=== PATIENT | female | born 1995 | race Caucasian/White ===

== ENCOUNTER → 2017-09-25 21:04 | Outpatient (CLI) | payer BC, MEDICAID, SELFPAY ==
[2017-09-29 13:00] LABS: HPV APTIMA, High Risk Negative (Negative)
== END ==
PROVIDERS: Visit Provider Obstetrics & Gynecology
DX: Z12.4 Encounter for screening for malignant neoplasm of cervix (principal)
CPT/HCPCS: 88175; G0145

== ENCOUNTER → 2018-10-08 | Outpatient (CLI) | payer BC, MEDICAID, SELFPAY ==
[2018-10-12 11:27] LABS: HPV APTIMA, High Risk Negative (Negative)
== END | disposition home or self-care (01) ==
PROVIDERS: Referring Provider Obstetrics & Gynecology; Visit Provider Obstetrics & Gynecology
DX: Z12.4 Encounter for screening for malignant neoplasm of cervix (principal)
CPT/HCPCS: 88175; G0145

== ENCOUNTER → 2018-12-05 | Outpatient (CLI) | payer BC, MEDICAID, SELFPAY ==
[2015-07-23 15:11] VITALS: BMI 29.1
[2018-12-05 17:17] LABS: Chlamydia Trachomatis by PCR POSITIVE (Negative); Neisserai gonorrhoeae by PCR Negative (Negative); Probe Check PASS; Sample Adequacy Control PASS; Specimen Processing Control PASS
== END | disposition home or self-care (01) ==
LOC: LABSPEC 15:19
PROVIDERS: Visit Provider Obstetrics & Gynecology
DX: Z11.3 Encounter for screening for infections with a predominantly sexual mode of transmission (principal)
CPT/HCPCS: 87491; 87591

== ENCOUNTER → 2018-12-31 | Outpatient (CLI) | payer BC, MEDICAID, SELFPAY ==
[2018-12-31 17:23] LABS: Absolute Lymphocyte Count 1.57 X10^3/ul (0.83-4.51); Absolute Neutrophil Count 5.2 X10^3/uL (2.0-7.7); Basophil# 0.01 X10^3/uL; Basophil% 0.1 % (0-1); Eosinophil# 0.04 X10^3/uL; Eosinophils% 0.5 % (0-5); Hematocrit 41.8 % (37-47); Hemoglobin 14.3 g/dl (12.0-15.0); Lymphocyte # 1.57 X10^3/ul (4.0); Lymphocyte % 21.3 % (19-41); Mean Corp Hgb Conc 34.2 g/gl (32-36); Mean Corpuscular Hgb 29.1 pg (27.0-32.0); Mean Platelet Vol. 11.7 fl (6.2-12.0); Monocyte% 6.8 % (0-10); Neutrophil # 5.23 X10^3/uL (2.7-7.7); Neutrophil % 71.2 % (47-70); Platelet Count 181 K/mm3 (150-450); RBC Distribution Width SD 40.1 fl (35.1-43.9); Red Blood Count 4.92 M/mm3 (4.2-5.4); White Blood Count 7.4 K/mm3 (4.4-11.0)
[2018-12-31 17:25] LABS: Color, Urine Yellow (Yellow); Glucose, Dipstick Normal (Normal); Ketone-Dipstick 50 mg/dl (Negative); Leukocyte Esterase-Dipstick 100 /ul (Negative); Nitrite-Dipstick Negative (Negative); Occult Blood-Urine 10 /ul (Negative); Protein-Dipstick 15 mg/dl (Negative); Specific Gravity, Urine 1.025 (1.002-1.030); Urine Bilirubin Dipstick Negative (Negative); Urine Clarity Sl. Cloudy (Clear); Urine Urobilinogen 1 mg/dl (Normal)
[2018-12-31 17:32] LABS: POSITIVE COUNT NO; POSITIVE DIFFERENTIAL NO; POSITIVE MORPHOLOGY NO
[2018-12-31 17:42] LABS: Amphetamine Urine VISTA NEGATIVE (<1000 ng/mL); Barbiturate Urine VISTA NEGATIVE (< 200 ng/mL); Benzodiazepine Urine VISTA NEGATIVE (< 200 ng/mL); Cocaine Urine VISTA NEGATIVE (< 300 ng/mL); Ecstacy Urine VISTA NEGATIVE (< 500 ng/mL); Methadone Urine VISTA NEGATIVE (< 300 ng/mL); PCP Urine VISTA NEGATIVE (< 25 ng/mL); THC Urine VISTA NEGATIVE (< 50 ng/mL); Vista UDS pH Range 6
[2018-12-31 17:43] LABS: Thyroid Stim Hormone (TSH) 0.13 uIU/mL (0.358-3.74)
[2018-12-31 17:58] LABS: COTININE Drug Screen Negative (<200 ng/mL)
[2019-01-01 10:15] LABS: HIV - WCH Non-Reactive (Nonreactive); Hepatitis B Surface Antigen Non-Reactive (Nonreactive); Hepatitis C Antibody Non-Reactive (Nonreactive); Rubella IgG 46.1 IU/mL; Vitamin D,25 Hydroxy 17.4 ng/mL (29.95-100.01)
[2019-01-01 14:11] LABS: Free T3 3.7 pg/mL (2.18-3.98); T4 Free Direct 1.34 ng/dL (0.76-1.46)
[2019-01-04 05:48] LABS: Prenatal RPR NONREACTIVE (NONREACTIVE)
== END | disposition home or self-care (01) ==
LOC: WOBLAB 14:16
PROVIDERS: Visit Provider Obstetrics & Gynecology
DX: Z34.81 Encounter for supervision of other normal pregnancy, first trimester (principal); R79.89 Other specified abnormal findings of blood chemistry
CPT/HCPCS: 36415; 80307; 81002; 82306; 84439; 84443; 84481; 85025; 86703; 86762; 86803; 87340

== ENCOUNTER → 2019-01-28 | Outpatient (CLI) | payer BC, MEDICAID, SELFPAY ==
[2015-07-23 15:11] VITALS: BMI 29.1
[2019-01-28 18:15] LABS: Chlamydia Trachomatis by PCR Negative (Negative); Neisserai gonorrhoeae by PCR Negative (Negative); Probe Check PASS; Sample Adequacy Control PASS; Specimen Processing Control PASS
== END | disposition home or self-care (01) ==
LOC: LABSPEC 14:12
PROVIDERS: Visit Provider Obstetrics & Gynecology
DX: Z34.82 Encounter for supervision of other normal pregnancy, second trimester (principal)
CPT/HCPCS: 87491; 87591

== ENCOUNTER → 2019-05-02 09:43 | Outpatient (CLI) | payer BC, MEDICAID, SELFPAY ==
[2019-05-02 12:39] LABS: Hematocrit 31.4 % (37-47); Hemoglobin 10.5 g/dL (12.0-15.0); Mean Corp Hgb Conc 33.4 g/dL (32-36); Mean Corpuscular Volume 89.7 fL (81-99); Mean Platelet Vol. 11.4 fl (6.2-12.0); Platelet Count 191 K/mm3 (150-450); RBC Distribution Width CV 12.7 % (11.6-14.6); RBC Distribution Width SD 41.5 fl (35.1-43.9); White Blood Count 9.6 K/mm3 (4.4-11.0)
[2019-05-02 12:44] LABS: Glucose Challenge Gest 1H 50g 104 mg/dL (70-140)
== END ==
PROVIDERS: Referring Provider Obstetrics & Gynecology; Visit Provider Obstetrics & Gynecology
DX: Z34.83 Encounter for supervision of other normal pregnancy, third trimester (principal)
CPT/HCPCS: 36415; 82950; 85027

== ENCOUNTER 2019-06-23 17:40 | Outpatient (CLI) | payer BC, MEDICAID, SELFPAY ==
[2019-06-23 18:26] VITALS: BMI 28.5
[2019-06-23] MEDS: 0.9% Normal Saline 1,000 ML 999 ML IV (18:45)
[2019-06-23 18:47] LABS: Color, Urine Yellow (Yellow); Glucose, Dipstick Normal (Normal); Leukocyte Esterase-Dipstick 25 /ul (Negative); Nitrite-Dipstick Negative (Negative); Occult Blood-Urine 10 /ul (Negative); Protein-Dipstick 30 mg/dl (Negative); Specific Gravity, Urine 1.025 (1.002-1.030); Urine Clarity Sl. Cloudy (Clear); Urine Urobilinogen 4 mg/dl (Normal)
[2019-06-23 18:52] LABS: Urine Bilirubin Dipstick 1 mg/dL (Negative)
[2019-06-23 18:54] LABS: Ketone-Dipstick 150 mg/dl (Negative)
[2019-06-23 19:05] LABS: Red Blood Cells-Urine 0 SEEN /hpf (0-5); White Blood Cells 0 SEEN /hpf (0-5)
[2019-06-23 19:07] LABS: Color, Urine Yellow (Yellow); Glucose, Dipstick NEGATIVE (Normal); Urine Clarity Sl Cldy (Clear)
[2019-06-23 19:08] LABS: Leukocyte Esterase-Dipstick 25 /ul (Negative); Nitrite-Dipstick Negative (Negative); Occult Blood-Urine 10 /ul (Negative); Protein-Dipstick 30 mg/dl (Negative); Specific Gravity, Urine 1.025 (1.002-1.030); Urine Bilirubin Dipstick 1 mg/dL (Negative); Urine Urobilinogen 4 mg/dl (Normal)
[2019-06-23 19:09] LABS: Ketone-Dipstick 150 mg/dl (Negative)
[2019-06-23 19:10] LABS: Squamous Epithelial Cells - UA 5-10 SEEN /hpf (5-10)
[2019-06-23 19:11] LABS: Bacteria RARE /hpf (None Seen); Mucous, Urine 3+ /hpf (<or=2+)
[2019-06-23] MEDS: 0.9% Normal Saline 1,000 ML 20 ML IV (19:52)
--- NOTE | 2019-06-23 20:16 | OB.TRI.HP_ITS ---
- Problem List (1) 35 weeks gestation of Status: Acute History of Present Illness Date of Service: 06/23/19 Was patient seen by the physician?: Yes Reason For Visit: R/O labor Final ANNA: 07/27/19 Final ANNA Source: US <20 weeks Gestational age: 35 Weeks and 1 Days History of Present Illness: 24yo @ 35 wga with c/o painful contractions since 1300h. Denies leaking of fluid, vaginal bleeding. Fetus is active. Contractions q1-3 minutes. Denies recent falls, trauma or car accidents. Allergies nitrofurantoin [From Macrobid] Allergy (Unknown, Verified 06/23/19 18:45) Hives nickel Allergy (Verified 07/18/15 14:35) Rash Sulfa (Sulfonamide Antibiotics) Allergy (Verified 07/01/15 19:29) Hives Laboratory Studies: Laboratory Tests 06/23/19 06/23/19 Range/Units 18:00 18:00 Urine Color Yellow Yellow (Yellow) Urine Clarity Sl Cldy Sl. Cloudy (Clear) Urine pH 6.0 6.0 (5.0 - 8.0) Ur Specific [place] 1.025 1.025 (1.002-1.030) Urine Protein 30 H 30 H (Negative) mg/dl Urine Glucose (UA) NEGATIVE Normal (Normal) mg/dl Urine Ketones 150 H 150 H (Negative) mg/dl Urine Occult Blood 10 H 10 H (Negative) /ul Urine Nitrite Negative Negative (Negative) Urine Bilirubin 1 H 1 H (Negative) mg/dL Urine Urobilinogen 4 H 4 H (Normal) mg/dl Ur Leukocyte Esterase 25 H 25 H (Negative) /ul Urine RBC 0 SEEN (0-5) /hpf Urine WBC 0 SEEN (0-5) /hpf Ur Squamous Epith Cells 5-10 SEEN (5-10) /hpf Urine Bacteria RARE (None Seen) /hpf Urine Mucus 3+ (<or=2+) /hpf Review of Systems Constitutional: Denies: Chills, Fever Cardiovascular: Reports: Palpitations. Denies: Chest Pain Respiratory: Denies: Shortness of Breath Gynecological: Reports: - - contractions. Denies: Vaginal bleeding Musculoskeletal: Reports: Back Pain Physical Exam General: Alert, Oriented x3, Cooperative, No apparent distress HEENT: Atraumatic, Normocephalic Lungs: Clear to auscultation, Normal air movement Abdomen: Soft, Non Tender, Non-Distended, Gravid Extremities:: No edema Neurological: Neuro grossly intact [employer]: Normal external genitalia Estimated gestational size: Appropriate for gestational size Cervix Dilation (cm): 1.5 Station: -3 Effacement (%): 50 NST - FHR Rate Baby A Baseline: 120 Variability:: Moderate Accelerations:: 15 x 15 Decelerations:: None NST Reactive:: Yes FHR Category:: Category I Uterine Activity:: 10/10 Impression/Plan 24yo @ 35wga with contractions -U/A likely contaminated -Repeat SVE unchanged -Terbutaline for strong, painful contractions refractory to IVF bolus -Will observe further
[2019-06-23] MEDS: Terbutaline 1 MG/ML Vial 0.25 MG SC (20:24)
== END 2019-06-23 22:35 | disposition home or self-care (01) ==
LOC: WPOUT 18:02 → OBT 18:03 → WP 19:00
PROVIDERS: Referring Provider Obstetrics & Gynecology; Visit Provider Obstetrics & Gynecology
DX: O60.00 Preterm labor without delivery, unspecified trimester (principal); Z3A.35 35 weeks gestation of pregnancy; Z79.899 Other long term (current) drug therapy; Z88.2 Allergy status to sulfonamides; Z88.1 Allergy status to other antibiotic agents
CPT/HCPCS: 96360; 96361 ×3; 59025; 59050; 81001; 81002; 87086; 87088; 96372; 99218; J7030; G0378

== ENCOUNTER 2019-07-02 19:22 | Outpatient (CLI) | payer BC, MEDICAID, SELFPAY ==
[2019-07-02] MEDS: Lactated Ringers 500 ML 999 ML IV ×2 (20:45→21:16)
[2019-07-02] MEDS: Ondansetron 4 MG/2 ML Vial IV (20:56)
[2019-07-02 21:00] LABS: Hematocrit 31.6 % (37-47); Hemoglobin 10.4 g/dL (12.0-15.0); Mean Corp Hgb Conc 32.9 g/dL (32-36); Mean Corpuscular Hgb 27.7 pg (27.0-32.0); Mean Platelet Vol. 12.8 fl (6.2-12.0); Platelet Count 125 K/mm3 (150-450); RBC Distribution Width CV 14.4 % (11.6-14.6); RBC Distribution Width SD 41.1 fl (35.1-43.9); Red Blood Count 3.76 M/mm3 (4.2-5.4); White Blood Count 13.3 K/mm3 (4.4-11.0)
[2019-07-02 21:06] VITALS: BMI 29.9
[2019-07-02 21:34] LABS: Color, Urine Yellow (Yellow); Glucose, Dipstick Normal (Normal); Leukocyte Esterase-Dipstick 25 /ul (Negative); Nitrite-Dipstick Negative (Negative); Occult Blood-Urine 10 /ul (Negative); Protein-Dipstick 30 mg/dl (Negative); Urine Bilirubin Dipstick Negative (Negative); Urine Clarity Cloudy (Clear); Urine Urobilinogen Normal (Normal); Urine pH 6.5 (5.0 - 8.0)
[2019-07-02 21:35] LABS: Ketone-Dipstick 150 mg/dl (Negative)
[2019-07-02] MEDS: morphine 10 MG/ML Syringe 8 MG IM (21:37)
[2019-07-02 21:39] LABS: Mucous, Urine 1+ /hpf (<or=2+); Squamous Epithelial Cells - UA 0-5 SEEN /hpf (5-10)
[2019-07-02 21:40] LABS: Calcium Oxalate Crystals Ur RARE /hpf (<or=2+); Hyaline Cast 0-5 SEEN /lpf (0-5)
[2019-07-02] MEDS: Betamethasone/Betamethasone 30 MG/5 ML Vial 12 MG IM (21:41)
[2019-07-02 21:42] LABS: White Blood Cells 0-5 SEEN /hpf (0-5)
[2019-07-02 21:43] LABS: Bacteria RARE /hpf (None Seen)
[2019-07-02 21:44] LABS: Red Blood Cells-Urine 0-5 SEEN /hpf (0-5)
[2019-07-02] MEDS: Lactated Ringers 1,000 ML 125 ML IV (21:48)
[2019-07-02 22:08] LABS: Group B Strep DNA By PCR Negative (Negative); Internal Control PASS; Probe Check PASS; Specimen Processing Control PASS
[2019-07-03] MEDS: 0.9% NaCl Peripheral Flush Adult/Peds IV ×2 (06:10→07:58)
[2019-07-03] MEDS: Lactated Ringers 1,000 ML 125 ML IV ×2 (07:58→14:42)
[2019-07-03] MEDS: Acetaminophen 500 MG Tablet PO (09:54)
--- NOTE | 2019-07-03 10:39 | PCM.PN.OB ---
Subjective: Pain 8/10 with contractions. Never had contractions with first daughter until after epidural was in, so not sure what Mukesh caballero vs real contractions feel like. Very uncomfortable. Doesn't feel sick at all and only vomited after lunch two days ago because of the food itself. Reiterated doesn't feel dehydrated or sick. Objective: VSS. UC 1-4 minutes, breathing through and unable to talk. FHR baseline 120, +accels, - decels, moderate variability. IV fluids continue. SVE 08/27/-3 posterior - Physical Exam Vitals/I&O's: Weight: 76.8 kg Body Mass Index (BMI) 29.9 Intake and Output for Last 24 Hours 07/01/19 07/02/19 07/03/19 23:59 23:59 23:59 Intake Total 1744 / 1994 1325 / 1325 Output Total 100 / 100 375 / 375 Balance 1645 / 1895 950 / 950 General: Alert, Oriented x3, Cooperative HEENT: Atraumatic, PERRLA, EOMI, Normocephalic Neck: Supple, No JVD, Negative Carotid Bruits Lungs: Clear to auscultation, Normal air movement Cardiovascular: Regular rate, No murmurs Abdomen: Bowel Sounds Present, Soft, Non Tender, Gravid, - - contractions palpating moderate Extremities: No edema, Capillary Refill Less than 3 Seconds Skin: No rashes, No breakdown Musculoskeletal: No Tenderness to Palpation of Joints or Extremities Neurological: Cranial nerves II-XII grossly intact Psych/Mental Status: Normal Affect, Appropriate Laboratory Results 07/02/19 19:53: Group B Strep DNA Negative, Specimen Comment Not Reportable 07/02/19 20:45: Blood Type O POSITIVE, Antibody Screen NEGATIVE 07/02/19 20:45: WBC 13.3 H, RBC 3.76 L, Hgb 10.4 L, Hct 31.6 L, MCV 84.0, MCH 27.7, MCHC 32.9, RDW Std Deviation 41.1, RDW Coeff of Jerome 14.4, Plt Count 125 L, MPV 12.8 H 07/02/19 21:10: Urine Color Yellow, Urine Clarity Cloudy, Urine pH 6.5, Ur Specific [place] 1.020, Urine Protein 30 H, Urine Glucose (UA) Normal, Urine Ketones 150 H, Urine Occult Blood 10 H, Urine Nitrite Negative, Urine Bilirubin Negative, Urine Urobilinogen Normal, Ur Leukocyte Esterase 25 H, Urine RBC 0-5 SEEN, Urine WBC 0-5 SEEN, Ur Squamous Epith Cells 0-5 SEEN, Calcium Oxalate Crystal RARE, Urine Bacteria RARE, Hyaline Casts 0-5 SEEN, Urine Mucus 1+ Current Medications Acetaminophen (Tylenol) 500 - 1,000 mg PO Q6H PRN PRN PRN Reason: Pain Score 1-10/10 Last Admin: 07/03/19 09:54 Dose: 1,000 mg Documented by: Betamethasone Acet/Betameth SodPhos (Celestone) 12 mg IM X1 ONE Stop: 07/03/19 21:31 Lactated Ringer's () 1,000 mls @ 125 mls/hr IV .Q8H ROSENDO Sodium Chloride () 10 - 40 ml IV UD PRN PRN Reason: SALINE FLUSH Last Admin: 07/03/19 07:58 Dose: 10 ml Documented by: Medical Necessity - Tobacco Use Smoking Status: Never smoker Assessment/Plan All Active Problems 35 weeks gestation of (Acute) A: GBS negative O+ blood type Has received one dose of Celestone 12mg IM 07/02/19 at 2140 Category I FHR with UC 1-4 minutes, palpating moderate, rating them 8/10 SVE 08/27/-3 posterior 36w4d gestation with ANNA 07/27/19 by 1st trimester US P: Celestone 12mg IM to be given at 2140 tonight Pain management IV fluids to continue Regular diet To continually monitor Will recheck SVE at 2140 to discuss POC further
--- NOTE | 2019-07-03 17:11 | OB.TRI.HP_ITS ---
History of Present Illness Date of Service: 07/02/19 Was patient seen by the physician?: No Reason For Visit: R/O LABOR Date of Service: 07/02/19 Final ANNA: 07/27/19 Final ANNA Source: US <20 weeks Gestational age: 37 Weeks and 3 Days History of Present Illness: This is a late entry for 07/03/19 0800 Pt arrived on unit last evening approx 2000 c/o contractions and burning w/urination; currently on Acyclovir for HSV prophylaxis, denies prodrome Allergies nitrofurantoin [From Macrobid] Allergy (Unknown, Verified 06/23/19 18:45) Hives nickel Allergy (Verified 07/18/15 14:35) Rash Sulfa (Sulfonamide Antibiotics) Allergy (Verified 07/01/15 19:29) Hives - Pertinent Past Medical History Medical History: Past Medical History (Last Updated 07/07/19 @ 13:10 by Edna Jarrlel MD) Anemia affecting Anxiety Herpes genitalis Migraines silent migraines Laboratory Studies: Laboratory Tests 07/02/19 07/02/19 07/02/19 Range/Units 21:10 20:45 20:45 WBC 13.3 H (4.4-11.0) K/mm3 RBC 3.76 L (4.2-5.4) M/mm3 Hgb 10.4 L (12.0-15.0) g/dL Hct 31.6 L (37-47) % MCV 84.0 (81-99) fL MCH 27.7 (27.0-32.0) pg MCHC 32.9 (32-36) g/dL RDW Std Deviation 41.1 (35.1-43.9) fl RDW Coeff of Jerome 14.4 (11.6-14.6) % Plt Count 125 L (150-450) K/mm3 MPV 12.8 H (6.2-12.0) fl Urine Color Yellow (Yellow) Urine Clarity Cloudy (Clear) Urine pH 6.5 (5.0 - 8.0) Ur Specific [place] 1.020 (1.002-1.030) Urine Protein 30 H (Negative) mg/dl Urine Glucose (UA) Normal (Normal) mg/dl Urine Ketones 150 H (Negative) mg/dl Urine Occult Blood 10 H (Negative) /ul Urine Nitrite Negative (Negative) Urine Bilirubin Negative (Negative) mg/dL Urine Urobilinogen Normal (Normal) mg/dl Ur Leukocyte Esterase 25 H (Negative) /ul Urine RBC 0-5 SEEN (0-5) /hpf Urine WBC 0-5 SEEN (0-5) /hpf Ur Squamous Epith Cells 0-5 SEEN (5-10) /hpf Calcium Oxalate Crystal RARE (<or=2+) /hpf Urine Bacteria RARE (None Seen) /hpf Hyaline Casts 0-5 SEEN (0-5) /lpf Urine Mucus 1+ (<or=2+) /hpf Group B Strep DNA (Negative) Specimen Comment Blood Type O POSITIVE Antibody Screen NEGATIVE 07/02/19 Range/Units 19:53 WBC (4.4-11.0) K/mm3 RBC (4.2-5.4) M/mm3 Hgb (12.0-15.0) g/dL Hct (37-47) % MCV (81-99) fL MCH (27.0-32.0) pg MCHC (32-36) g/dL RDW Std Deviation (35.1-43.9) fl RDW Coeff of Jerome (11.6-14.6) % Plt Count (150-450) K/mm3 MPV (6.2-12.0) fl Urine Color (Yellow) Urine Clarity (Clear) Urine pH (5.0 - 8.0) Ur Specific [place] (1.002-1.030) Urine Protein (Negative) mg/dl Urine Glucose (UA) (Normal) mg/dl Urine Ketones (Negative) mg/dl Urine Occult Blood (Negative) /ul Urine Nitrite (Negative) Urine Bilirubin (Negative) mg/dL Urine Urobilinogen (Normal) mg/dl Ur Leukocyte Esterase (Negative) /ul Urine RBC (0-5) /hpf Urine WBC (0-5) /hpf Ur Squamous Epith Cells (5-10) /hpf Calcium Oxalate Crystal (<or=2+) /hpf Urine Bacteria (None Seen) /hpf Hyaline Casts (0-5) /lpf Urine Mucus (<or=2+) /hpf Group B Strep DNA Negative (Negative) Specimen Comment Not Reportable Blood Type Antibody Screen Physical Exam Vitals: AVSS Presentation: Unable to assess Cervix Dilation (cm): 2 Station: -3 Effacement (%): 50 - VE per RN at NST - FHR Rate Baby A Baseline: 125 Variability:: Moderate Accelerations:: 15 x 15 Decelerations:: None NST Reactive:: Yes FHR Category:: Category I - Per RN, evidence of arrythmia aurally Impression/Plan Assessment: 24yo at 36w4d gestation by 6w2d US PTL vs. UTI/no cervical change Hx of HSV, currently on prophylaxis Mild anemia Mild gestational thrombocytopenia Rapid GBS negative O pos blood type CAT 1 FHTs PLan: C&S sent IV fluids started Morphine, 8mg IM give n Celestone, 12m IM given, next dose in 24 hours Continue home meds (Zoloft, Acyclovir HSV prophylaxis, Ferrous Sulfate) Regular diet unless cervical change Continued observation; Wendy Bray CNM aware and now assuming care
[2019-07-03] MEDS: Acyclovir 200 MG Capsule 400 MG PO (18:57)
--- NOTE | 2019-07-03 21:01 | DS.PCM_ITS ---
Discharge Date and Diagnosis Date of Admission: 07/02/19 Date of Discharge: 07/03/19 - Primary Discharge Diagnosis 36 weeks gestation, rule out labor Hospital Course and Treatment Operations: None Procedures: None Summary of Care Provided: The patient is a 24 year old F [] Subjective: Feeling better with tolerating contractions. Doesn't know if they're less intense or just getting used to them. Wants to go home. Objective: VSS. FHR 130, + accels, -decels, UC 4-7 minutes irregular. SVE unchanged 08/27/-3 posterior. - Physical Exam Vitals/I&O's: Weight: 76.8 kg Body Mass Index (BMI) 29.9 Intake and Output for Last 24 Hours 07/01/19 07/02/19 07/03/19 23:59 23:59 23:59 Intake Total 1744 / 1994 2845.83 / 2845.83 Output Total 100 / 100 775 / 775 Balance 1645 / 1895 2070.83 / 2070.83 General: Alert, Oriented x3, Cooperative HEENT: Atraumatic, PERRLA, EOMI, Normocephalic Neck: Supple, No JVD, Negative Carotid Bruits Lungs: Clear to auscultation, Normal air movement Cardiovascular: Regular rate, No murmurs Abdomen: Bowel Sounds Present, Soft, Non Tender, Gravid Extremities: No edema, Capillary Refill Less than 3 Seconds Skin: No rashes, No breakdown Musculoskeletal: No Tenderness to Palpation of Joints or Extremities Neurological: Cranial nerves II-XII grossly intact Psych/Mental Status: Normal Affect, Appropriate Laboratory Results 07/02/19 19:53: Group B Strep DNA Negative, Specimen Comment Not Reportable 07/02/19 20:45: Blood Type O POSITIVE, Antibody Screen NEGATIVE 07/02/19 20:45: WBC 13.3 H, RBC 3.76 L, Hgb 10.4 L, Hct 31.6 L, MCV 84.0, MCH 27.7, MCHC 32.9, RDW Std Deviation 41.1, RDW Coeff of [place] 14.4, Plt Count 125 L, MPV 12.8 H 07/02/19 21:10: Urine Color Yellow, Urine Clarity Cloudy, Urine pH 6.5, Ur Specific [place] 1.020, Urine Protein 30 H, Urine Glucose (UA) Normal, Urine Ketones 150 H, Urine Occult Blood 10 H, Urine Nitrite Negative, Urine Bilirubin Negative, Urine Urobilinogen Normal, Ur Leukocyte Esterase 25 H, Urine RBC 0-5 SEEN, Urine WBC 0-5 SEEN, Ur Squamous Epith Cells 0-5 SEEN, Calcium Oxalate Crystal RARE, Urine Bacteria RARE, Hyaline Casts 0-5 SEEN, Urine Mucus 1+ Current Medications Acetaminophen (Tylenol) 500 - 1,000 mg PO Q6H PRN PRN PRN Reason: Pain Score 1-04/11 Last Admin: 07/03/19 09:54 Dose: 1,000 mg Documented by: Acyclovir (Zovirax) 400 mg PO BID [facility] Last Admin: 07/03/19 18:57 Dose: 400 mg Documented by: Betamethasone Acet/Betameth SodPhos (Celestone) 12 mg IM X1 ONE Stop: 07/03/19 21:31 Ferrous Sulfate (Ferrous Sulfate) 325 mg PO DAILY@1200 ROSENDO Lactated Ringer's () 1,000 mls @ 125 mls/hr IV .Q8H [facility] Last Infusion: 07/03/19 18:52 Dose: 125 mls/hr Documented by: Sertraline HCl (Zoloft) 50 mg PO DAILY [facility] Sodium Chloride () 10 - 40 ml IV UD PRN PRN Reason: SALINE FLUSH Last Admin: 07/03/19 07:58 Dose: 10 ml Documented by: Discharge Diet: No Restrictions Discharge Activity: - - Rest tonight, on 07/04/18 let us know if wanting light duty vs off of work May resume sexual activity in: No Restrictions Home Medications: Medications to take at Discharge Pediatric Multivitamin No.49 [Flintstones Gummies] 1 each PO DAILY 07/01/15 Pantoprazole Sodium [Protonix] 40 mg PO DAILY 07/18/15 Butalb/Acetaminophen/Caffeine [Fioricet 50-300-40 mg Capsule] 1 each PO 07/23/15 Docusate Sodium [Colace] 100 mg PO BID #30 capsule 07/24/15 Ibuprofen [Motrin] 800 mg PO TID PRN PRN #40 tablet 07/24/15 Sertraline HCl [Zoloft] 50 mg PO DAILY 06/23/19 Zolpidem Tartrate [Ambien (Generic)] 5 mg PO QHS PRN PRN 4 Days #4 tab 01/01/20 Primary Care Physician: Care Physician,No Primary [Primary Care Provider] - Please Follow Up With: Aftab Hermosillo MD When: 07/04/19 Disposition: Home Minutes spent on discharge:: 30 Patient Condition:: Stable Medical Necessity - Tobacco Use Smoking Status: Never smoker Meaningful Use Info Meaningful Use Diagnoses (Choose all that apply): None applicable
[2019-07-03] MEDS: Betamethasone/Betamethasone 30 MG/5 ML Vial 12 MG IM (21:31)
== END 2019-07-03 21:45 | disposition home or self-care (01) ==
LOC: WPOUT 20:05 → WP 20:05
PROVIDERS: Advanced Practice Midwife; Visit Provider Obstetrics & Gynecology
DX: O62.9 Abnormality of forces of labor, unspecified (principal); O26.893 Other specified pregnancy related conditions, third trimester; R30.0 Dysuria; O99.113 Other diseases of the blood and blood-forming organs and certain disorders involving the immune mechanism complicating pregnancy, third trimester; D69.59 Other secondary thrombocytopenia; O99.013 Anemia complicating pregnancy, third trimester; D64.9 Anemia, unspecified; O99.343 Other mental disorders complicating pregnancy, third trimester; F41.9 Anxiety disorder, unspecified; Z3A.36 36 weeks gestation of pregnancy; Z79.899 Other long term (current) drug therapy
CPT/HCPCS: 96361 ×19; 96374; 36415; 59025; 59050; 81001; 85027; 86850; 86900; 86901; 87081; 87086; 87088; 87653; 96372; 99218; J7120; A4216; G0378; J0702; J2405

== ENCOUNTER → 2019-07-04 14:22 | Outpatient (CLI) | payer BC, MEDICAID, SELFPAY ==
[2019-07-02 21:06] VITALS: BMI 29.9
[2019-07-04 15:44] LABS: Hematocrit 32.7 % (37-47); Hemoglobin 10.2 g/dL (12.0-15.0); Mean Corp Hgb Conc 31.2 g/dL (32-36); Mean Corpuscular Hgb 26.8 pg (27.0-32.0); Mean Corpuscular Volume 86.1 fL (81-99); Mean Platelet Vol. 13.3 fl (6.2-12.0); Platelet Count 156 K/mm3 (150-450); RBC Distribution Width CV 14.7 % (11.6-14.6); RBC Distribution Width SD 43.9 fl (35.1-43.9); White Blood Count 10.4 K/mm3 (4.4-11.0)
[2019-07-04 16:02] LABS: Prothrombin Time (Protime)PT. 12.5 SECONDS (11.7-14.9)
[2019-07-04 16:03] LABS: Partial Thromboplast Time 24.7 Seconds (24.1-36.2)
[2019-07-04 16:20] LABS: AST(SGOT) 21 U/L (15-37); Alanine Aminotransfer ALT/SGPT 18 U/L (13-56); Creatinine, Serum 0.67 mg/dL (0.55-1.02); EST Glomerular Filtration Rate 116 mL/min (>60); Est Glom Filt Rate - Afr Amer 140 mL/min (>60); Uric Acid 4.6 mg/dL (2.6-6.0)
== END ==
PROVIDERS: Visit Provider Obstetrics & Gynecology
DX: O13.9 Gestational [pregnancy-induced] hypertension without significant proteinuria, unspecified trimester (principal); Z3A.00 Weeks of gestation of pregnancy not specified
CPT/HCPCS: 36415; 82565; 84450; 84460; 84550; 85027; 85610; 85730

== ENCOUNTER → 2019-07-06 08:07 | Outpatient (CLI) | payer BC, MEDICAID, SELFPAY ==
[2019-07-02 21:06] VITALS: BMI 29.9
[2019-07-06 09:38] LABS: 24 Hour Urine Protein 328.9 mg/24HR (<150 MG/24HR); 24HR. UA Prot. Total Volume 1475 mL; Urine Protein (24 Hour) 22.3 mg/dL (<11.9)
== END ==
PROVIDERS: Family Provider Internal Medicine; PCP Internal Medicine; Referring Provider Obstetrics & Gynecology; Visit Provider Obstetrics & Gynecology
DX: O13.9 Gestational [pregnancy-induced] hypertension without significant proteinuria, unspecified trimester (principal); Z3A.00 Weeks of gestation of pregnancy not specified
CPT/HCPCS: 81050; 84156

== ENCOUNTER 2019-07-07 11:50 | Inpatient (IN) | payer BC, MEDICAID, SELFPAY ==
[2019-07-07 09:52] VITALS: BMI 31.1
[2019-07-07 11:04] LABS: Hematocrit 27.8 % (37-47); Hemoglobin 8.9 g/dL (12.0-15.0); Mean Corpuscular Hgb 26.9 pg (27.0-32.0); Mean Platelet Vol. 12.9 fl (6.2-12.0); Platelet Count 133 K/mm3 (150-450); RBC Distribution Width CV 14.2 % (11.6-14.6); RBC Distribution Width SD 42.8 fl (35.1-43.9); Red Blood Count 3.31 M/mm3 (4.2-5.4); White Blood Count 8.6 K/mm3 (4.4-11.0)
[2019-07-07 11:05] LABS: Protein:Creat Ratio 574 mg/g CRE (0-200)
[2019-07-07 11:08] LABS: Prothrombin Time (Protime)PT. 12.7 SECONDS (11.7-14.9)
[2019-07-07 11:09] LABS: Partial Thromboplast Time 28.5 Seconds (24.1-36.2)
[2019-07-07 11:10] LABS: AST(SGOT) 19 U/L (15-37); Alanine Aminotransfer ALT/SGPT 21 U/L (13-56); Creatinine, Serum 0.55 mg/dL (0.55-1.02); EST Glomerular Filtration Rate 143 mL/min (>60); Est Glom Filt Rate - Afr Amer 173 mL/min (>60); Estimated Creatinine Clearance 130.47 ml/min; Uric Acid 4.6 mg/dL (2.6-6.0)
[2019-07-07] MEDS: Acetaminophen 500 MG Tablet 1000 MG PO (11:51)
[2019-07-07] MEDS: Lactated Ringers 1,000 ML 200 ML IV ×3 (12:00→20:40)
--- NOTE | 2019-07-07 13:03 | PCM.HP.OB ---
- Problem List (1) 37 weeks gestation of Status: Acute (2) Preeclampsia Status: Acute Qualifiers: Trimester: third trimester Qualified Code(s): O14.93 - Unspecified pre-eclampsia, third trimester Comment: w/o severe features History Date of Admission: 07/02/19 Final ANNA: 07/27/19 Final ANNA Source: US <20 weeks Gestational age: 37 Weeks and 1 Days History of this : This is a 24 year-old, G [2], P [1], at 37 1/7 weeks gestational age with c/o headache. Previously had preeclamptic labs on 07/04/19 for elevated BP in office with 24h urine on 07/06/19 having 328g protein. Medical History: Medical History (Last Updated 07/07/19 @ 13:10 by Edna Jarrell MD) Anemia affecting O99.019 Anxiety F41.9 Herpes genitalis A60.00 Migraines G43.909 silent migraines Allergies nitrofurantoin [From Macrobid] Allergy (Unknown, Verified 06/23/19 18:45) Hives nickel Allergy (Verified 07/18/15 14:35) Rash Sulfa (Sulfonamide Antibiotics) Allergy (Verified 07/01/15 19:29) Hives Home Medications: Home Medications Pediatric Multivitamin No.49 [Flintstones Gummies] 1 each PO DAILY 07/01/15 Docusate Sodium [Colace] 100 mg PO BID #30 capsule 07/24/15 Sertraline HCl [Zoloft] 50 mg PO DAILY 06/23/19 Acyclovir 1 tab PO BID 07/07/19 Smoking Status: Never smoker Alcohol: None Number of Fetus(es): 1 NST - FHR Rate Baby A Baseline: 140 Variability:: Moderate Accelerations:: 15 x 15 Decelerations:: None NST Reactive:: Yes FHR Category:: Category I Uterine Activity:: 1-2/10 min History Past Pregnancies: Past Pregnancies Delivery Date Name GA/ Weeks Outcome Route Wt Infant Sex Labor Length Anesthesia Delivery Location Provider FOB 07/2015 [facility] 40 Living [id number] F 7 Epidural [facility] Arabella Bethea Labs: Mom's Problem List Problem Status Onset Code 37 weeks gestation of Acute Z3A.37 Preeclampsia Acute O14.90 Mom's Labs & Results 07/07/19 07/07/19 07/07/19 10:10 10:10 10:10 WBC 8.6 RBC 3.31 L Hgb 8.9 L Hct 27.8 L MCV 84.0 MCH 26.9 L MCHC 32.0 RDW Std Deviation 42.8 RDW Coeff of Jerome 14.2 Plt Count 133 L MPV 12.9 H PT 12.7 INR 1.0 APTT 28.5 Creatinine Estim Creat Clear Calc Est GFR (MDRD) Af Amer Est GFR (MDRD) Non-Af Uric Acid AST ALT U Random Total Protein 19.0 H Urine Creatinine 33.10 Protein/Creatinin Ratio 574 H Blood Type Antibody Screen 07/07/19 07/07/19 10:10 12:00 WBC RBC Hgb Hct MCV MCH MCHC RDW Std Deviation RDW Coeff of Jerome Plt Count MPV PT INR APTT Creatinine 0.55 Estim Creat Clear Calc 130.47 Est GFR (MDRD) Af Amer 173 Est GFR (MDRD) Non-Af 143 Uric Acid 4.6 AST 19 ALT 21 U Random Total Protein Urine Creatinine Protein/Creatinin Ratio Blood Type Pending Antibody Screen Pending Course Did the patient receive Yes care? Labs Blood Type: O RH: POSITIVE RPR/VDRL/Syphilis Nonreactive Rubella status Immune HbSAg Negative Date Done: 12/31/18 Chlamydia Negative Gonorrhea Negative HIV/AIDS Non-Reactive Group B Strep: Negative Current Obstetrical History Gestational Diabetes No Incompetent Cervix No Infertility No IUGR No Macrosomia No Hypertension/Pre-eclampsia Yes Placenta Previa/Abruption No PTL/PROM Yes: 35 wks celestone inj x 2 given Uterine anomaly No Oligohydramnios No Polyhydramnios No Multiple gestation No STI Yes, HSV - last outbreak 1 year ago; Chlamydia positive in first trimester s/p treatment Past Medical History Asthma No Diabetes No Hypertension No Heart disease No Mitral valve prolapse No Neurologic/Seizure disorder/ Yes: migraines Migraines Kidney disease No Liver disease No Varicosities No Clotting disorders/Hx of DVT No Thyroid Dysfunction No Other medical diseases No Psychiatric disorders Yes: anxiety Major trauma No Abnormal PAP smear No Sleep apnea No Mammogram in the last 2 years No Social History Marital Status: Alleged father Sven Hackett Hx Smoking No Smoking Status Never smoker Expected Infant Delivery Method: Spontaneous Vaginal Describe any other labor & delivery plans:: misoprostol Number of Visits: 10 Review of Systems Eyes: Denies: Vision Change HEENT: Reports: Head Aches Gastrointestinal: Reports: Abdominal Pain. 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 -Pt to eat, then start misoprostol
[2019-07-07] MEDS: miSOPROStol 25 MCG TABLET VAGINAL ×2 (14:10→17:11)
--- NOTE | 2019-07-07 14:37 | PCM.PN.BLA ---
Progress Note LABOR PROGRESS NOTE FHR Cat II with prolonged acceleration. SSE performed with no herpetic lesions present and patient denied prodomonal symptoms. Cytotec 25mcg placed per vagina. Membranes stripped. Informed by RN shortly after that FHR remained with tachycardia and sinusoidal like appearance. On review of EFM - FHR 180 with minimal variability and 2-3 cycles/min of shallow undulating pattern c/w variability for approximately 10 min, followed by approximately 4 minutes of sinusoidal like pattern. Resuscitative measures instituted including IV bolus and O2 supplementation with return to baseline 150 bpm, moderate variability, + accelerations - Category I FHR. status overall reassuring at this time. Will continue to monitor and proceed with induction.
[2019-07-07] MEDS: Acyclovir 200 MG Capsule 400 MG PO (18:46)
[2019-07-07] MEDS: Lactated Ringers 500 ML 999 ML IV (20:04)
[2019-07-07] MEDS: fentaNYL-bupivacaine (epidural) 100 ML BAG EPIDURAL (20:53)
--- NOTE | 2019-07-07 21:08 | PCM.PN.BLA ---
Progress Note LABOR PROGRESS NOTE Denies headache, vision changes. Contractions were intensifying and she had epidural placed. Afebrile, BP 150/95 GEN - NAD, AAO x 3 SVE 3/60/-3, moderate and midposition TOCO 5/10 min HR 150, moderate variability, + accelerations, no decelerations A/P: 24yo @ 37 1/7wga, IOL for preeclampsia, Cat I FHR -BPs more elevated with increasing painful contractions and epidural placement - now normal to mildly elevated. -Amniotomy performed with clear fluid. Will start pitocin. - status reassuring
--- NOTE | 2019-07-08 | PLAC_PTH ---
PATIENT: HANH RM LOC: [facility] U#:[id number] AGE/SX: 24/F ROOM: WP010 RE07/07/[address]: Lidia Bray CNM : 1995 BED: 1 DIS: 07/09/2019 SPEC #: [id number] RECD: 07/08/19 05:09 STATUS: JACOBY RERhonda #: [id number] JACK: 07/08/19 00:[address]: Edna Kimball DEPT: SURGICAL PATHOLOGY RECD BY: Rivera Augustine ENTERED: 07/08/19 07:54 SP TYPE: PLACENTA OTHR DR: JONN Chandra Dr., DO Dr. Summer Holmes Mason, MD Tissues: Placenta, NOS Procedures: Surgery Specimen Level V Comments: @ Ordering doctor for SUV edited from [email or web address].CHART to @ by KD at 07/08/19 0937 @ Submitting doctor edited from [email or web address].CHART to @ by KD at 07/08/19 0937 HEADER OPERATION: Vaginal delivery PRE-OP DIAGNOSIS: Preeclampsia, at 37wga TISSUE SUBMITTED: Placenta MICROSCOPIC DIAGNOSIS Vega placenta (549 gm): Umbilical cord - trivascular with no inflammation. Placental membranes - no pathologic change. Placental disc - intravillous congestion and mildly increased intraparenchymal fibrin plaques. AM:jun 07/09/19 MICROSCOPIC DESCRIPTION Slides are reviewed. GROSS DESCRIPTION SPECIMEN: PLACENTA / CLINICAL INFORMATION: A. Weight: 3.796 kg B. Gestational Age: 37 weeks C. Sex: Male PLACENTAL WEIGHT (POST FIXATION): 549 gm PLACENTAL DIMENSIONS: 20 x 16 x 2.5 cm PLACENTAL SHAPE: Usual ovoid PLACENTAL WEIGHT FOR GESTATIONAL AGE: Within 10-99th percentile MEMBRANES - Present A. Insertion: Marginal B. Site of rupture from edge: 2 cm from edge of placental disc C. Color of membrane: Mcbride-broussard D. Abnormalities: None UMBILICAL CORD - Present A. Color: Mcbride-broussard B. Insertion: Eccentric C. Length: 33 cm D. Diameter: 1.5 cm E. Number of vessels: Three F. Abnormalities: None PLACENTAL DISC - Present A. Color of surface: Mcbride-broussard B. surface abnormalities: None C. Maternal cotyledons: Intact with minimal tears D. Attached retro placental clot: No clot E. Cut surface: Dark red and spongy F. Lesions: None G. Separate clot: 6 x 4.5 x 1 cm SECTIONS SUBMITTED: 1. Umbilical cord ( end inked) 2. Membrane roll 3. Placental disc, and maternal surfaces 4. Placental disc, and maternal surfaces 5. Placental disc, and maternal surfaces AM:jun 07/08/19 TC:5 CPT: 22928
[2019-07-08] MEDS: fentaNYL-bupivacaine (epidural) 100 ML BAG EPIDURAL (01:45)
[2019-07-08] MEDS: Oxytocin 30 units/NS 500 ml 30 UNITS/500 ML IV.SOLN 334 UNITS IV (02:30)
--- NOTE | 2019-07-08 02:54 | PCM.OPRPT ---
Problem List (1) 37 weeks gestation of Status: Acute (2) Preeclampsia Status: Acute Qualifiers: Trimester: third trimester Qualified Code(s): O14.93 - Unspecified pre-eclampsia, third trimester Comment: w/o severe features Report of Operation Date of Procedure: 07/08/19 Pre-Operative Diagnosis: Preeclampsia without severe features, retained placenta Post-Operative Diagnosis: Preeclampsia without severe features, retained placenta Vaginal Delivery Maternal Presentation: Medically Indicated Induction Method of Induction: Cervidil, Pitocin, Amniotomy Medical Reason for Induction: - - Preeclampsia Amniotic Membrane Rupture Type: Artificial Rupture of Membrane time: 07/07/19 2103h Amniotic Fluid Description: Clear Final ANNA: 07/27/19 Final ANNA Source: US <20 weeks Gestational age: 37 Weeks and 2 Days Date of Procedure: 07/08/19 Pre-Operative Diagnosis: 37 2/7wga, preeclampsia Post-Operative Diagnosis: 37 2/7wga, preeclampsia Surgery/ Procedure Performed: Spontaneous Vaginal Delivery, - - Banjo curettage Anesthesiologist: Arabella Glass Type of Anesthesia: Epidural Description of Procedure: Patient was FD/+3 station and pushed to deliver a vigorous male infant in OP over an intact perineum. The infant was placed on the maternal abdomen and further attended by nursery personnel. The cord was doubly clamped and cut at approximately 4 minutes of life. Cord blood specimen obtained. The placenta remained in situ for more than 25 minutes, thus was manually removed. It appeared nearly intact on inspection. Intrauterine exam, then Gauze curettage was performed and followed by US guided banjo curettage with thinning of the endometrial stripe and retrieval of additional products and clot. The fundus was firm and the uterus contracted. There was good hemostasis. Sponge counts were correct x 2. Presentation: Vertex Placental Delivery Description: Spontaneous Placenta Disposition: [facility] Cord Vessel Description: 3 Vessels Nuchal Cord Compression: Without compression Cord Entanglement: None Drain: Quintero to straight drain Estimated Blood Loss: 350 ml A gender: Male (1 minute): 8 (5 minute): 9 Episiotomy Description: None Laceration: None Medications given after delivery: IV Pitocin, - - cytotec per recturm Complications: None
--- NOTE | 2019-07-08 03:08 | DCINST_ITS ---
Discharge Diet: No Restrictions Discharge Activity: Return to Normal Activity May resume sexual activity in: 6 weeks Lifting Restrictions: 10-20 lb Instructions: Understanding Preeclampsia, Nutrition While , Understanding Depression, : Caring for Yourself, at Home Additional Instructions: If you experience any of the following, contact your healthcare provider. * Bleeding that soaks a pad every hour for 2 hours * Fever 100.4 or higher * Unrelieved incision or abdominal pain * Swelling, redness, discharge or bleeding from your incision or episiotomy site * Your incision begins to separate * Problems urinating (including inability to urinate or burning while urinating). * Visual changes * Severe headache * Flu-like symptoms * Pain or redness in one of both of your breasts * Pain, warmth, tenderness or swelling in your legs, especially the calf area * Frequent nausea and vomiting * Symptoms of depression or anxiety If you experience any of the following, call 911 or go to the nearest Emergency Room. * Chest pain * Problems breathing * Seizure activity * Partial or complete paralysis of a body part, slurred speech, weakness or drooping of the face, or a sudden inability to walk or hold your balance Allergies/Adverse Reactions: Allergies nitrofurantoin [From Macrobid] Allergy (Unknown, Verified 06/23/19 18:45) Hives nickel Allergy (Verified 07/18/15 14:35) Rash Sulfa (Sulfonamide Antibiotics) Allergy (Verified 07/01/15 19:29) Hives Medications to take at Discharge Pediatric Multivitamin No.49 [Flintstones Gummies] 1 each PO DAILY 07/01/15 Docusate Sodium [Colace] 100 mg PO BID #30 capsule 07/24/15 Sertraline HCl [Zoloft] 50 mg PO DAILY 06/23/19 Ibuprofen [Motrin] 600 mg PO TID PRN #30 tab 07/08/19 Ferrous Sulfate [Iron] 325 mg PO DAILY #60 tab 07/09/19 Nifedipine [Procardia Xl] 30 mg PO DAILY #30 tab.er.24 07/09/19 The following prescriptions were given: Ferrous Sulfate [Iron] 325 mg PO DAILY #60 tab Transmission Status: Received by [id number] Ibuprofen [Motrin] 600 mg PO TID PRN #30 tab PRN Reason: Pain Or Fever Transmission Status: Received by [id number] Nifedipine [Procardia Xl] 30 mg PO DAILY #30 tab.er.24 Transmission Status: Received by [facility] Please Follow Up With: Aftab Hermosillo MD - Blood pressure and mood check When: 1-2 weeks Primary Care Physician: Aurora Madrigal DO [Primary Care Provider] - Test Results: Test results from this visit will be discussed in further detail at your follow- up appointment, if applicable.
[2019-07-08] MEDS: Ibuprofen 600 MG Tablet PO ×2 (03:52→10:02)
[2019-07-08] MEDS: NIFEdipine 30 MG Tablet PO (05:56)
[2019-07-08 06:13] LABS: Pathology Specimen OB SEE PATHOLOGY REPORT
[2019-07-08 08:00] VITALS: BP 138/84; PULSE 68; RESP 16; TEMP 36.6
[2019-07-08] MEDS: Sertraline 50 MG Tablet PO (10:02)
[2019-07-08 12:00] VITALS: BP 125/78; PULSE 79; RESP 20; TEMP 36.7
[2019-07-08 15:20] VITALS: BP 130/92; PULSE 87; RESP 16; TEMP 36.8
[2019-07-08 19:45] VITALS: BP 129/85; PULSE 79; RESP 18; TEMP 36.8
[2019-07-09 00:45] VITALS: BP 114/66; PULSE 87; RESP 18; TEMP 37.3
[2019-07-09 03:48] VITALS: BP 127/77; PULSE 78; RESP 18; TEMP 37.1
--- NOTE | 2019-07-09 08:56 | PCM.DC.SUM ---
Discharge Date and Diagnosis - Problem List Patient Problems: Active and Suspected Problems (Last Updated 07/07/19 @ 13:10 by Edna Jarrell MD) 37 weeks gestation of (Acute) Preeclampsia (Acute) w/o severe features Date of Admission: 07/02/19 Date of Discharge: 07/09/19 - Primary Discharge Diagnosis Active and Suspected Problems (Last Updated 07/07/19 @ 13:10 by Edna Jarrell MD) 37 weeks gestation of (Acute) Preeclampsia (Acute) w/o severe features Hospital Course and Treatment Operations: None Summary of Care Provided: The patient is a 24 year old F [] Patient Problems: Active and Suspected Problems (Last Updated 07/07/19 @ 13:10 by Edna Jarrell MD) 37 weeks gestation of (Acute) Preeclampsia (Acute) w/o severe features Subjective: Feels well. No longer having a headache. +Flatus. Pain 0/10 right now, but while 3/10. Ready to discharge today. Objective: VSS. Denies headache, blurred vision, and RUQ pain. BLE +1 edema, negative Clonus, +1 reflexes. male. Fundus u/1. Normal involution, with lochia rubra. +Flatus with normal bowel sounds. - Physical Exam Vitals/I&O's: Vital Signs Temp Pulse Resp BP 98.7 F 78 18 127/77 H 07/09/19 03:48 07/09/19 03:48 07/09/19 03:48 07/09/19 03:48 Oxygen Delivery Method Room Air Weight: 79.832 kg Body Mass Index (BMI) 31.1 Intake and Output for Last 24 Hours 07/07/19 07/08/19 07/09/19 23:59 23:59 23:59 Intake Total 2500.00 / 2500.00 1550 / 1550 Output Total 200 / 200 700 / 700 Balance 2300.00 / 2300.00 850 / 850 General: Alert, Oriented x3, Cooperative HEENT: Atraumatic, PERRLA, EOMI, Normocephalic Neck: Supple, No JVD, Negative Carotid Bruits Lungs: Clear to auscultation, Normal air movement Cardiovascular: Regular rate, No murmurs Abdomen: Bowel Sounds Present, Soft, Non Tender, Passing Flatus, - - fundus u/1, firm, midline Extremities: No edema, Capillary Refill Less than 3 Seconds Skin: No rashes, No breakdown Musculoskeletal: No Tenderness to Palpation of Joints or Extremities Neurological: Cranial nerves II-XII grossly intact Psych/Mental Status: Normal Affect, Appropriate Laboratory Results 07/07/19 12:00: Crossmatch See Detail Current Medications Acetaminophen (Tylenol) 1,000 mg PO Q8H PRN PRN PRN Reason: Pain Score 1-10/10 Bisacodyl (Dulcolax) 10 mg RECTAL UD PRN PRN Reason: If no BM Dibucaine (Dibucaine) 1 applic TOPICAL TID PRN PRN; Protocol PRN Reason: Discomfort Hydrocortisone (Hytone) 1 applic TOPICAL TID PRN PRN; Protocol PRN Reason: Discomfort Ibuprofen (Motrin) 600 mg PO Q6H PRN PRN PRN Reason: Pain Score 1-3/10 Last Admin: 07/08/19 10:02 Dose: 600 mg Documented by: Methylergonovine Maleate (Methergine) 0.2 mg IM X1 PRN PRN Reason: Excess bleeding/uterine atony Nifedipine (Procardia Xl) 30 mg PO DAILY ROSENDO Ondansetron HCl (Zofran) 4 mg IV Q4H PRN PRN PRN Reason: Nausea Senna/Docusate Sodium (Senokot-S, Berna-Colace) 1 - 2 tablet PO DAILY PRN PRN PRN Reason: Constipation Sertraline HCl (Zoloft) 50 mg PO DAILY [facility] Last Admin: 07/08/19 10:02 Dose: 50 mg Documented by: Simethicone (Mylicon) 80 mg PO PCHS PRN PRN Reason: Indigestion/Stomach pain Sodium Chloride () 5 - 15 ml IV UD PRN PRN Reason: SALINE FLUSH Discharge Diet: No Restrictions Discharge Activity: Return to Normal Activity May resume sexual activity in: 6 weeks Home Medications: Medications to take at Discharge Pediatric Multivitamin No.49 [Flintstones Gummies] 1 each PO DAILY 07/01/15 Docusate Sodium [Colace] 100 mg PO BID #30 capsule 07/24/15 Sertraline HCl [Zoloft] 50 mg PO DAILY 06/23/19 Ibuprofen [Motrin] 600 mg PO TID PRN #30 tab 07/08/19 Ferrous Sulfate [Iron] 325 mg PO DAILY #60 tab 07/09/19 Nifedipine [Procardia Xl] 30 mg PO DAILY #30 tab.er.24 07/09/19 Following Prescrptions Were Given to Patient: Ibuprofen [Motrin] 600 mg PO TID PRN #30 tab PRN Reason: Pain Or Fever Transmission Status: Received by [facility] Primary Care Physician: Aurora Madrigal DO [Primary Care Provider] - Please Follow Up With: Aftab Hermsoillo MD - Blood pressure and mood check When: 2 weeks Patient Instructions: Nutrition While , : Caring for Yourself, at Home, Understanding Depression, Understanding Preeclampsia Disposition: Home Minutes spent on discharge:: 30 Patient Condition:: Good Medical Necessity - Tobacco Use Smoking Status: Never smoker Meaningful Use Info Meaningful Use Diagnoses (Choose all that apply): None applicable
[2019-07-09 09:00] VITALS: BP 118/78; PULSE 88; RESP 20; TEMP 37
[2019-07-09] MEDS: Sertraline 50 MG Tablet PO (11:31)
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
[2019-07-09] MEDS: Senna/Docusate Sodium 1 Tablet PO (12:20)
[2019-07-09] MEDS: Ibuprofen 600 MG Tablet PO (12:20)
[2019-07-09] MEDS: NIFEdipine 30 MG Tablet PO (12:21)
[2019-07-09 12:22] VITALS: BP 136/91
[2019-07-09 13:45] VITALS: BP 125/88; PULSE 80; RESP 18; TEMP 37.1
[2019-07-09] MEDS: Acetaminophen/Butalbital/Caffe 1 Tablet 2 TABLET PO (15:04)
== END 2019-07-09 16:30 | disposition home or self-care (01) | DRG 806 ==
LOC: WPOUT 11:54 → WP 11:54
PROVIDERS: Admitting Provider Obstetrics & Gynecology; Family Provider Internal Medicine; PCP Internal Medicine; Referring Provider Obstetrics & Gynecology; Visit Provider Obstetrics & Gynecology
DX: O14.04 Mild to moderate pre-eclampsia, complicating childbirth (principal); O98.32 Other infections with a predominantly sexual mode of transmission complicating childbirth; Z37.0 Single live birth; Z3A.37 37 weeks gestation of pregnancy; O99.344 Other mental disorders complicating childbirth; F41.9 Anxiety disorder, unspecified
CPT/HCPCS: 36415; 59025; 59050; 76815; 82565; 82570; 84156; 84450; 84460; 84550; 85027; 85610; 85730; 86850; 86900; 86901; 86920; 88307; 99218; J7120; G0378; J3490

== ENCOUNTER → 2020-04-03 | Outpatient (CLI) | payer BC, MEDICAID, SELFPAY ==
[2020-04-07 07:07] LABS: Chlamydia By Nucleic Acid AMP Negative (Negative)
[2020-04-07 07:59] LABS: Gonococcus By Nucleic Acid AMP Negative (Negative)
== END | disposition home or self-care (01) ==
LOC: LABSPEC 15:29
PROVIDERS: PCP Internal Medicine; Visit Provider Student in an Organized Health Care Education/Training Program
DX: Z11.3 Encounter for screening for infections with a predominantly sexual mode of transmission (principal); Z30.430 Encounter for insertion of intrauterine contraceptive device
CPT/HCPCS: 87491; 87591

== ENCOUNTER → 2020-09-14 | Outpatient (CLI) | payer BC, MEDICAID, SELFPAY ==
[2020-09-17 03:07] LABS: Chlamydia By Nucleic Acid AMP Negative (Negative)
[2020-09-17 07:30] LABS: Gonococcus By Nucleic Acid AMP Negative (Negative)
[2020-09-18 14:05] LABS: HPV Reflexed? NOT INDICATED
== END | disposition home or self-care (01) ==
LOC: LABSPEC 14:52
PROVIDERS: PCP Internal Medicine; Visit Provider Student in an Organized Health Care Education/Training Program
DX: Z12.4 Encounter for screening for malignant neoplasm of cervix (principal); Z11.3 Encounter for screening for infections with a predominantly sexual mode of transmission
CPT/HCPCS: 87491; 87591; 88175; G0145

== ENCOUNTER 2021-09-28 16:24 | Outpatient (CLI) | payer BC, MEDICAID, SELFPAY ==
[2021-09-30 22:07] LABS: Chlamydia By Nucleic Acid AMP Negative (Negative)
[2021-09-30 23:02] LABS: Gonococcus By Nucleic Acid AMP Negative (Negative)
[2021-10-06 12:31] LABS: HPV Reflexed? NOT INDICATED
== END 2021-09-28 23:59 | disposition home or self-care (01) ==
PROVIDERS: PCP Internal Medicine; Visit Provider Student in an Organized Health Care Education/Training Program
DX: Z12.4 Encounter for screening for malignant neoplasm of cervix (principal); Z11.3 Encounter for screening for infections with a predominantly sexual mode of transmission
CPT/HCPCS: 87491; 87591; 88175; G0145

== ENCOUNTER → 2022-08-24 | Outpatient (CLI) | payer BC, MEDICAID, SELFPAY ==
--- NOTE | 2022-08-24 14:25 | US_ITS ---
STUDY: ULTRASOUND BREAST - LEFT REASON FOR EXAM: Female, 27 years old. Palpable lump left breast. TECHNIQUE: Axial and longitudinal images of the LEFT breast were performed with a high resolution ultrasound transducer. # OF IMAGES: 19 COMPARISON: Comparison is made with prior study done earlier today. FINDINGS: LEFT Breast: The upper outer quadrant of the left breast was examined with ultrasound. There is evidence of dense fibroglandular tissue. Dilated ducts. No solid or cystic mass lesion is seen. US/Breast Limited Unilateral IMPRESSION: Dense fibroglandular tissue. Dilated ducts. No sonographic abnormality is seen. ASSESSMENT CATEGORY: BIRADS Category 2: Benign. A letter regarding these results will be sent to the patient by the facility within 30 days. Electronically Signed: Marlo Veliz MD at 15:43 EST ,
--- NOTE | 2022-08-24 14:25 | BI_ITS ---
MAMMOGRAPHY - BILATERAL DIAGNOSTIC REASON FOR EXAM: Female, 27 years old. Palpable lump in the left breast. PERTINENT HISTORY: Grandmother with breast cancer. TECHNIQUE: Digital bilateral breast john (3D mammographic acquisition) in the CC and MLO projections. 2-D mediolateral oblique (MLO) and craniocaudad (CC) views of both breasts were obtained. CAD: Full Field Digital Mammography with Computer Added Detection was performed. COMPARISON: None. Baseline examination. FINDINGS: Breast Composition: The breasts are extremely dense, which lowers the sensitivity of mammography. The palpable abnormality corresponds to 2.2 cm x 2 cm nodular density in the central lateral aspect of the left breast. Correlation with ultrasound is recommended. No other significant abnormalities are identified. BI/DIAG MAMM W/CAD, BILAT IMPRESSION: The palpable abnormality corresponds to 2.2 cm by 2 cm nodular density in the central lateral aspect of the left breast. Correlation with ultrasound is recommended. ASSESSMENT CATEGORY: BIRADS Category 0: Incomplete. Need additional imaging evaluation. A letter regarding these results will be sent to the patient by the facility within 30 days. Approximately 10% of breast cancers are not detected by mammography. A normal mammogram should not delay biopsy of a clinically suspicious abnormality. Electronically Signed: Marlo Veliz MD at 15:06 EST ,
== END | disposition home or self-care (01) ==
LOC: OPBI 14:22
PROVIDERS: PCP Internal Medicine; Referring Provider Student in an Organized Health Care Education/Training Program; Visit Provider Student in an Organized Health Care Education/Training Program
DX: N64.4 Mastodynia (principal); N63.20 Unspecified lump in the left breast, unspecified quadrant
CPT/HCPCS: 76642; 77062; 77066; G0279

== ENCOUNTER → 2023-04-03 | Outpatient (CLI) | payer BC, MEDICAID, SELFPAY ==
[2023-04-03 17:26] LABS: hCG Titer Quant., Serum 80 mIU/mL (1-3)
== END | disposition home or self-care (01) ==
LOC: LAB 16:20
PROVIDERS: PCP Internal Medicine; Referring Provider Obstetrics & Gynecology; Visit Provider Obstetrics & Gynecology
DX: Z34.90 Encounter for supervision of normal pregnancy, unspecified, unspecified trimester (principal)
CPT/HCPCS: 36415; 84702

== ENCOUNTER → 2023-04-05 | Outpatient (CLI) | payer BC, MEDICAID, SELFPAY ==
[2023-04-05 17:30] LABS: hCG Titer Quant., Serum 252 mIU/mL (1-3)
== END | disposition home or self-care (01) ==
LOC: LAB 16:33
PROVIDERS: PCP Internal Medicine; Referring Provider Obstetrics & Gynecology; Visit Provider Obstetrics & Gynecology
DX: Z34.90 Encounter for supervision of normal pregnancy, unspecified, unspecified trimester (principal)
CPT/HCPCS: 36415; 84702

== ENCOUNTER → 2023-04-28 | Outpatient (CLI) | payer BC, MEDICAID, SELFPAY ==
[2023-04-28 18:12] LABS: Protein, Urine (Random) 12.4 mg/dL (<11.9); Protein:Creat Ratio 145 mg/g CRE (0-200)
[2023-05-02 08:11] LABS: Chlamydia By Nucleic Acid AMP Negative (Negative); Gonococcus By Nucleic Acid AMP Negative (Negative)
== END | disposition home or self-care (01) ==
LOC: LABSPEC 17:07
PROVIDERS: Visit Provider Obstetrics & Gynecology
DX: O09.91 Supervision of high risk pregnancy, unspecified, first trimester (principal); Z3A.00 Weeks of gestation of pregnancy not specified
CPT/HCPCS: 82570; 84156; 87086; 87491; 87591

== ENCOUNTER → 2023-04-28 | Outpatient (CLI) | payer BC, MEDICAID, SELFPAY | END | disposition home or self-care (01) | LOC: LABSPEC 05-01 08:10 | PROVIDERS: PCP Internal Medicine; Visit Provider Obstetrics & Gynecology | DX: O09.91 Supervision of high risk pregnancy, unspecified, first trimester (principal); Z3A.00 Weeks of gestation of pregnancy not specified ==

== ENCOUNTER → 2023-05-20 | Outpatient (CLI) | payer BC, MEDICAID, SELFPAY ==
[2023-05-20 09:55] LABS: Absolute Lymphocyte Count 1.64 X10^3/uL (0.83-4.51); Absolute Neutrophil Count 4.3 X10^3/uL (2.0-7.7); Basophil# 0.02 X10^3/uL; Basophil% 0.3 % (0-1); Eosinophil# 0.06 X10^3/uL; Eosinophils% 0.9 % (0-5); Hematocrit 41.9 % (37-47); Hemoglobin 13.7 g/dL (12.0-15.0); Lymphocyte # 1.64 X10^3/ul (0.83-4.51); Lymphocyte % 25.3 % (19-41); Mean Corp Hgb Conc 32.7 g/dL (32-36); Mean Corpuscular Hgb 29.3 pg (27.0-32.0); Mean Corpuscular Volume 89.5 fL (81-99); Mean Platelet Vol. 11.3 fl (6.2-12.0); Monocyte# 0.49 X10^3/uL; Monocyte% 7.6 % (0-10); NRBC Flagged by Analyzer 0 % (0-5); Neutrophil # 4.25 X10^3/uL (2.7-7.7); Neutrophil % 65.6 % (47-70); Platelet Count 168 K/mm3 (150-450); RBC Distribution Width CV 12.8 % (11.6-14.6); RBC Distribution Width SD 41.4 fl (35.1-43.9); Red Blood Count 4.68 M/mm3 (4.2-5.4); White Blood Count 6.5 K/mm3 (4.4-11.0)
[2023-05-20 10:10] LABS: AST(SGOT) 14 U/L (15-37); Alanine Aminotransfer ALT/SGPT 20 U/L (13-56); Albumin, Serum 3.8 g/dL (3.2-5.0); Alkaline Phosphatase 54 U/L (45-117); Anion Gap 5 (5-15); BUN 10 mg/dL (7-18); BUN/Creat Ratio 15.3 RATIO (10-20); Calcium,Total 9.1 mg/dL (8.5-10.1); Chloride 107 mmol/L (98-107); Creatinine, Serum 0.65 mg/dL (0.55-1.02); EST Glomerular Filtration Rate 115 mL/min (>60); Est Glom Filt Rate - Afr Amer 139 mL/min (>60); Globulin 3.8 g/dL (2.2-4.2); Glucose 88 mg/dL (74-106); Potassium 4.3 mmol/L (3.5-5.1); Protein, Total 7.6 g/dL (6.4-8.2); Sodium Level 137 mmol/L (136-145)
[2023-05-22 09:42] LABS: HIV - WCH Non-Reactive (Nonreactive); Hepatitis B Surface Antigen Non-Reactive (Nonreactive); Hepatitis C Antibody Non-Reactive (Nonreactive); Rubella IgG Reactive (Nonreactive); Syphilis Antibodies Non-reactive; Vitamin B12 307 pg/mL (211-911)
== END | disposition home or self-care (01) ==
LOC: LAB 09:01
PROVIDERS: Obstetrics & Gynecology; PCP Internal Medicine; Visit Provider Internal Medicine
DX: O09.299 Supervision of pregnancy with other poor reproductive or obstetric history, unspecified trimester (principal); O09.91 Supervision of high risk pregnancy, unspecified, first trimester; E53.8 Deficiency of other specified B group vitamins; Z3A.00 Weeks of gestation of pregnancy not specified; O99.280 Endocrine, nutritional and metabolic diseases complicating pregnancy, unspecified trimester
CPT/HCPCS: 36415; 80053; 82607; 85025; 86703; 86762; 86780; 86803; 86850; 86900; 86901; 87340

== ENCOUNTER → 2023-05-22 | Outpatient (CLI) | payer BC, MEDICAID, SELFPAY ==
[2023-05-22 14:37] LABS: NATERA MAILED SPECIMEN
== END | disposition home or self-care (01) ==
LOC: LAB 13:33
PROVIDERS: PCP Internal Medicine; Referring Provider Obstetrics & Gynecology; Visit Provider Obstetrics & Gynecology
DX: Z34.81 Encounter for supervision of other normal pregnancy, first trimester (principal)

== ENCOUNTER → 2023-09-18 | Outpatient (CLI) | payer BC, MEDICAID, SELFPAY ==
[2023-09-18 09:08] LABS: Absolute Lymphocyte Count 1.33 X10^3/uL (0.83-4.51); Absolute Neutrophil Count 5.7 X10^3/uL (2.0-7.7); Basophil# 0.02 X10^3/uL; Basophil% 0.3 % (0-1); Eosinophil# 0.08 X10^3/uL; Hematocrit 32.8 % (37-47); Lymphocyte # 1.33 X10^3/ul (0.83-4.51); Lymphocyte % 17.1 % (19-41); Mean Corp Hgb Conc 33.5 g/dL (32-36); Mean Corpuscular Hgb 30.5 pg (27.0-32.0); Mean Corpuscular Volume 90.9 fL (81-99); Mean Platelet Vol. 11.5 fl (6.2-12.0); Monocyte# 0.48 X10^3/uL; Monocyte% 6.2 % (0-10); NRBC Flagged by Analyzer 0 % (0-5); Neutrophil # 5.74 X10^3/uL (2.7-7.7); Platelet Count 171 K/mm3 (150-450); RBC Distribution Width CV 12.8 % (11.6-14.6); Red Blood Count 3.61 M/mm3 (4.2-5.4); White Blood Count 7.8 K/mm3 (4.4-11.0)
[2023-09-18 09:33] LABS: Glucose Challenge Gest 1H 50g 109 mg/dL (70-140)
[2023-09-18 10:05] LABS: HIV - WCH Non-Reactive (Nonreactive); Syphilis Antibodies Non-reactive
== END | disposition home or self-care (01) ==
LOC: LAB 07:55
PROVIDERS: PCP Internal Medicine; Referring Provider Nurse Practitioner Women's Health; Visit Provider Nurse Practitioner Women's Health
DX: O09.91 Supervision of high risk pregnancy, unspecified, first trimester (principal); Z3A.00 Weeks of gestation of pregnancy not specified
CPT/HCPCS: 36415; 82950; 85025; 86703; 86780

== ENCOUNTER → 2023-11-03 | Outpatient (CLI) | payer BC, MEDICAID, SELFPAY ==
--- NOTE | 2023-11-03 07:43 | US_ITS ---
STUDY: SECOND AND THIRD TRIMESTER OBSTETRICAL ULTRASOUND - LIMITED REASON FOR EXAM: Female, 28 years old Large for dates -- GROWTH LMP: March 07, 2023. PRIOR ULTRASOUND: None. TECHNIQUE: Transabdominal TECHNICAL QUALITY: Adequate. FINDINGS: There is a single intrauterine fetus. The fetus is in a cephalic presentation. There is demonstrated cardiac activity with a heart rate of 150 bpm. There is a normal amniotic fluid volume. The largest amniotic fluid pocket measures 5.5 cm x 8 cm. The amniotic fluid index (RAFIA) is 18.5 cm. The placenta is anterior in location and is not low lying. There are Grade 1 placental changes. The cervical length was not measured due to head position. BIOMETRY: BPD: 8.7 cm: 35 weeks, 1 days HC: 31.42 cm: 35 weeks, 2 days AC: 31.44 cm: 35 weeks, 3 days FL: 6.78 cm: 34 weeks, 6 days Age by LMP: 34 weeks, 3 days. ANNA by LMP: December 12, 2023. age by current US: 34 weeks, 6 days. ANNA by current US: December 09, 2023. Estimated weight: 2643 grams, +/- 396 grams, 70 percentile. US/OB Limited With Biometrics IMPRESSION: Single live intrauterine gestation with a mean gestational age of 34 weeks and 6 days. Electronically Signed: Marlo Veliz MD at 14:08 EDT ,
== END | disposition home or self-care (01) ==
PROVIDERS: PCP Internal Medicine; Referring Provider Nurse Practitioner Women's Health; Visit Provider Nurse Practitioner Women's Health
DX: O36.60X0 Maternal care for excessive fetal growth, unspecified trimester, not applicable or unspecified (principal); Z3A.00 Weeks of gestation of pregnancy not specified
CPT/HCPCS: 76816

== ENCOUNTER 2023-11-15 22:30 | Outpatient (CLI) | payer BC, MEDICAID, SELFPAY ==
[2023-11-15] VITALS (12 sets, daily range): BP systolic 120–131; BP diastolic 69–83; PULSE 104–126; O2SAT 96–98; BMI 32.8
[2023-11-15 23:17] LABS: Hematocrit 34.2 % (37-47); Hemoglobin 11.2 g/dL (12.0-15.0); Mean Corp Hgb Conc 32.7 g/dL (32-36); Mean Corpuscular Hgb 28.9 pg (27.0-32.0); Mean Corpuscular Volume 88.1 fL (81-99); Mean Platelet Vol. 11.2 fl (6.2-12.0); Platelet Count 131 K/mm3 (150-450); RBC Distribution Width CV 13.3 % (11.6-14.6); RBC Distribution Width SD 42.5 fl (35.1-43.9); Red Blood Count 3.88 M/mm3 (4.2-5.4); White Blood Count 8.2 K/mm3 (4.4-11.0)
[2023-11-15 23:26] LABS: Protein, Urine (Random) 9.3 mg/dL (<11.9); Protein:Creat Ratio 321 mg/g CRE (0-200)
[2023-11-15 23:31] LABS: AST(SGOT) 12 U/L (15-37); Alanine Aminotransfer ALT/SGPT 19 U/L (13-56); Creatinine, Serum 0.66 mg/dL (0.55-1.02); EST Glomerular Filtration Rate 114 mL/min (>60); Est Glom Filt Rate - Afr Amer 138 mL/min (>60); Estimated Creatinine Clearance 130.38 ml/min; Uric Acid 4.3 mg/dL (2.6-6.0)
--- NOTE | 2023-11-15 23:54 | OB.TRI.PN_ITS ---
Progress Notes Date of Service: 11/15/23 Progress Note: HPI - General General Date of Admission: 11/15/23 HPI Narrative HANH DOLAN, is a 28 F who presents to L&D to rule out pre-eclampsia. Maternal Data Information ANNA Calculator Estimated Delivery Date Method Current WG Current Estimate 12/12/23 Ultrasound #1 36w 3d Other Estimates 12/15/23 LMP (Uncertain) 36w 0d PFSH PFSH Medical History (Updated 11/17/23 @ 02:[address] Jyothi Lacey MD) Abnormal Pap smear of cervix History of pre-term labor Retained placenta or membranes Headache Ectopic Pre-eclampsia Herpes genitalis Migraines Anemia affecting Anxiety Home Medications ?Medication ?Instructions ?Recorded ?Last Taken ?Type hydroxyzine pamoate 25 mg capsule 25 mg PO TID PRN headache #20 caps 06/28/23 Unknown Rx (Vistaril) cyanocobalamin (vitamin B-12) 1,000 mcg IM QMONTH 10/30/23 11/15/23 20:00 History 1,000 mcg/mL injection solution 1,000 mcg docosahexaenoic acid 200 mg 200 mg PO DAILY 10/30/23 11/15/23 21:00 History capsule ( DHA) aspirin 81 mg capsule 81 mg PO DAILY 11/15/23 11/16/23 17:00 History magnesium 2 tab PO DAILY pregnan 11/15/23 11/15/23 21:00 History Allergy/AdvReac Type Severity Reaction Status Date / Time nitrofurantoin (From Allergy Unknown Hives Verified 11/16/23 21:26 Macrobid) nickel Allergy Rash Verified 11/16/23 21:26 Sulfa (Sulfonamide Allergy Hives Verified 11/16/23 21:26 Antibiotics) Family History Father Squamous cell carcinomaMother Hyperlipidemia Surgical History (Updated 11/17/23 @ 01:01 by Rossy Stevenson) [place] teeth removed Hx of cholecystectomy Social History Smoking Status: Never smoker alcohol intake: never substance use type: does not use caffeine: Yes what type of physical activity do you participate in: none seatbelt use: always do you feel safe at home: Yes additional social history: Boyfriend-Aftab History 4 Elective abortions Hx Para 2 Spontaneous abortions Hx # Term Pregnancies Ectopic pregnancies Hx # Pregnancies Multiple births # of living children 2 Past Pregnancies Del. Date Name GA/Weeks Outcome Route Bth Weight Infant Gen Labor Lgth Anesthesia Del Locatn Provider FOB 07/24/15 [place] 39 live - full term 6lbs 9oz Female epidural [facility] Dr. Edna Brambila 07/08/19 [place] 37 live - full term 8lbs 6oz Male [facility] Dr. Edna Bethea [place] Delivery Date: 07/24/15 Last Updated by: Lissa Ngo No issues during or delivery Delivery Date: 07/08/19 Last Updated by: Lissa Ngo Went into pre-term labor at 36 weeks but was able to stop labor. Developed pre-eclampsia and was induced at 37 weeks. Retained placenta, curettage immediately after delivery Visit Details Expected Delivery Route/Plan Labor Preferences- CB/BF classes: no labor support person: Aftab labor intervention preferences: pain management options preferred: limited intervention if she can tolerate cut cord/dad catch: Dad wants to help deliver and cut cord : yes PP control planned: discussed discussed possible routes of delivery and associated risks: [] special requests: [] Plans Covid status: unvaccinate Flu vaccine: vaccinated this year Tdap vaccine: given Rhogam: NA LARC form signed: yes Problem list reviewed and updated with the most current plan of care details and appropriate orders placed. Relevant counseling for the gestational age provided. Continue routine care and follow up unless otherwise noted in visit notes/problem list details OB Flowsheet Initial Weight: Not Recorded Date -?-?-?-?-?-?-?-?-?-?-?-?- EGA Weight BP Urine Prot -?-?-?-?-?-?-?-?-?-?-?-?- Glucose FHR FuHt Pres Dilation -?-?-?-?-?-?-?-?-?-?-?-?- Effaced St Visit Note 04/28/23-?-?-?-?-?-?-?-?-?-?-?-?- 7w 3d 149 lb 2 oz 133/85 -?-?-?-?-?-?-?-?-?-?-?-?- 163 -?-?-?-?-?-?-?-?-?-?-?-?- JV- CRL is consistent with her presumed LMP. states has not had a real period in 8 years. was using iud until recently 05/22/23-?-?-?-?-?-?-?-?-?-?-?-?- 10w 6d 148 lb 2 oz 128/82 Negative -?-?-?-?-?-?-?-?-?-?-?-?- Negative 168 -?-?-?-?-?-?-?-?-?-?-?-?- MH-Brief US to confirm live IUP. Denies VB. Nausea persists, declines RX 06/28/23-?-?-?-?-?-?-?-?-?-?-?-?- 16w 1d 153 lb 113/79 Negative -?-?-?-?-?-?-?-?-?-?-?-?- Negative 158 -?-?-?-?-?-?-?-?-?-?-?-?- MH-No VB. Some flutters. Nausea resolved. Still w headaches most days, phenergan not helpful. Will try vistaril. Call if no improvement. 07/28/23-?-?-?-?-?-?-?-?-?-?-?-?- 20w 3d 158 lb 110/73 Negative -?-?-?-?-?--?-?-?-?-?-?-?- Negative 145 -?-?-?-?-?-?-?-?-?-?-?-?- JV- no lof, vaginal bleeding, or cramping other than lia [place] contractions. dad wants to catch the baby at delivery if possible. pharmacist told patient that vistaril will cause defects. had to tell patient that it is widely used in and no human studies show risks of defects. 08/21/23-?-?-?-?-?-?-?-?-?-?-?-?- 23w 6d 164 lb 117/77 Negative -?-?-?-?-?-?-?-?-?-?-?-?- Negative 147 -?-?-?-?-?--?-?-?-?-?-?-?- MH-NO VB, LOF. Good FM. 2nd US today to complete anatomy. Itching lower left leg. None hands, feet abdomen. No rash. Lotion, FF, maria l. Call if worsend 09/18/23-?-?-?-?-?-?-?-?-?-?-?-?- 27w 6d 173 lb 2 oz 114/77 Negative -?-?-?-?-?-?-?-?-?-?-?-?- Negative 151 28 -?-?-?-?-?-?-?-?-?-?-?-?- JV- no lof, vaginal bleeding, or dec fm. no complaints today. gct and cbc done but pending. 10/04/23-?-?-?-?-?-?-?-?-?-?-?-?- 30w 1d 176 lb 116/77 Negative -?-?-?-?-?-?-?-?-?-?-?-?- Negative 145 30 -?-?-?-?-?-?-?-?-?-?-?-?- -No VB, LOF. Good FM. Still has cough from covid 2 wk ago. Will call PCP. Taking low dose ASA 10/18/23-?-?-?-?-?-?-?-?-?-?-?-?- 32w 1d 178 lb 2 oz 118/84 Negative -?-?-?-?-?-?-?-?-?-?-?-?- Negative 140 33 -?-?-?-?-?-?-?-?-?-?-?-?- LC- no vb/ctx/lof. good fm. no concerns today. 10/30/23-?-?-?-?-?-?-?-?-?-?-?-?- 33w 6d 183 lb 120/82 Negative -?-?-?-?-?-?-?-?-?-?--?-?- Negative 148 36 -?-?-?-?-?-?-?-?-?-?-?-?- MH-No VB, LOF. Good FM. Feeling more uncomfortable. Growth US ordered ROS Constitutional Constitutional: Reports systems reviewed and no addt'l complaints, except as documented Gastrointestinal Gastrointestinal: Denies bloating, constipation, cramping, diarrhea, nausea or vomiting Genitourinary Genitourinary: Reports other Details: Denies vaginal odor, vaginal bleeding, or vaginal discharge ; Denies difficulty urinating or flank pain NST FHR Rate Baby A Baseline: 150 Variability:: Moderate Accelerations:: 15 x 15 Decelerations:: None NST Reactive:: Yes FHR Category:: Category I Assessment & Plan (1) Large for dates affecting management of mother: QUALIFIERS: Fetus number: single or unspecified fetus Trimester: third trimester Qualified Code(s): O36.63X0 - Maternal care for excessive growth, third trimester, not applicable or unspecified COMMENT: US at 34wk: EFW 70%, AC 80% (2) COVID-19 affecting in third trimester: COMMENT: already taking 81mg asa. (3) History of abnormal cervical Pap smear: COMMENT: LGSIL in 2017, and has new partner now, rpt pap post (4) History of pre-eclampsia in prior , currently : COMMENT: Pre-e labs at NOB ordered/nl start baby asa has new FOB (5) : QUALIFIERS: Weeks of gestation: 34 weeks Qualified Code(s): Z3A.34 - 34 weeks gestation of COMMENT: Carrier testing negative. NIPT low risk. DOC only delivery (6) Supervision of high risk in first trimester: COMMENT: [id number], girl, [place], [place]. Boyfriend-Aftab(his first) (7) Herpes genitalis: COMMENT: start valtrex at 36 weeks PLAN: Plan nursing reports normal labs other than slightly elevated PC ratio. plan IOL at 37 weeks Charges/Coding Multi Select Codes Visit Charges Office Visit/Consults: 31461 OV L3 Est 20min Urinary/Genital Urinary/Genital CPT Codes: 85948-90 non-stress test Interp Laboratory Studies: Laboratory Tests 05/15/24 Range/Units 23:10 WBC 8.2 (4.4-11.0) K/mm3 RBC 3.88 L (4.2-5.4) M/mm3 Hgb 11.2 L (12.0-15.0) g/dL Hct 34.2 L (37-47) % MCV 88.1 (81-99) fL MCH 28.9 (27.0-32.0) pg MCHC 32.7 (32-36) g/dL RDW Std Deviation 42.5 (35.1-43.9) fl RDW Coeff of [place] 13.3 (11.6-14.6) % Plt Count 131 L (150-450) K/mm3 MPV 11.2 (6.2-12.0) fl Creatinine 0.66 (0.55-1.02) mg/dL Estim Creat Clear Calc 130.38 ml/min Est GFR (MDRD) Af Amer 138 (>60) mL/min Est GFR (MDRD) Non-Af 114 (>60) mL/min Uric Acid 4.3 (2.6-6.0) mg/dL AST 12 L (15-37) U/L ALT 19 (13-56) U/L U Random Total Protein 9.3 (<11.9) mg/dL Urine Creatinine 29.00 (NO RANGE EST.) mg/dL Protein/Creatinin Ratio 321 H (0-200) mg/g CRE Charges/Coding Multi Select Codes Visit Charges Office Visit/Consults: 59509 OV L3 Est 20min Urinary/Genital Urinary/Genital CPT Codes: 44024-77 non-stress test Interp
== END 2023-11-15 23:50 | disposition home or self-care (01) ==
LOC: WPOUT 22:36 → WP 22:36
PROVIDERS: PCP Internal Medicine; Referring Provider Obstetrics & Gynecology; Visit Provider Obstetrics & Gynecology
DX: O36.63X0 Maternal care for excessive fetal growth, third trimester, not applicable or unspecified (principal); O98.513 Other viral diseases complicating pregnancy, third trimester; U07.1 COVID-19; B00.9 Herpesviral infection, unspecified; Z3A.36 36 weeks gestation of pregnancy; Z90.49 Acquired absence of other specified parts of digestive tract; Z87.59 Personal history of other complications of pregnancy, childbirth and the puerperium
CPT/HCPCS: 36415; 59025; 59050; 82565; 82570; 84156; 84450; 84460; 84550; 85027; 99221; G0378

== ENCOUNTER 2023-11-16 23:19 | Inpatient (IN) | payer BC, MEDICAID, SELFPAY ==
[2023-11-16] VITALS (22 sets, daily range): BP systolic 129–143; BP diastolic 81–95; PULSE 93–120; RESP 20; TEMP 37.4; O2SAT 96–98; BMI 32.6
--- NOTE | 2023-11-16 21:07 | OB.TRI.PN_ITS ---
Progress Notes Date of Service: 11/16/23 Progress Note: Patient presents for triage evaluation secondary to [ ] FHT: [] Moderate variability reactive no decelerations category I tracing [place]: [] Contractions Assessment and plan: [] Reactive NST, reassuring maternal and status patient discharged to home to follow-up []. See problem list details for additional plan information. Charges/Coding Procedures Urinary/Genital 52xxx-59xxx: 51487-14 non-stress test Interp Assessment & Plan (1) Herpes genitalis: COMMENT: start valtrex at 36 weeks (2) Large for dates affecting management of mother: QUALIFIERS: Fetus number: single or unspecified fetus Trimester: third trimester Qualified Code(s): O36.63X0 - Maternal care for excessive growth, third trimester, not applicable or unspecified COMMENT: US at 34wk: EFW 70%, AC 80% (3) COVID-19 affecting in third trimester: COMMENT: already taking 81mg asa. (4) History of abnormal cervical Pap smear: COMMENT: LGSIL in 2017, and has new partner now, rpt pap post (5) History of pre-eclampsia in prior , currently : COMMENT: Pre-e labs at NOB ordered/nl start baby asa has new FOB (6) : QUALIFIERS: Weeks of gestation: 34 weeks Qualified Code(s): Z3A.34 - 34 weeks gestation of COMMENT: Carrier testing negative. NIPT low risk. DOC only delivery (7) Supervision of high risk in first trimester: COMMENT: [id number], girl, [place], [place]. Boyfriend-Aftab(his first)
[2023-11-16] MEDS: 0.9% Saline Lock 10 ML Syringe IV (21:40)
[2023-11-16 21:56] LABS: Bacteria 0 SEEN /hpf (None Seen); Mucous, Urine 0 SEEN /hpf (<or=2+); White Blood Cells 0 SEEN /hpf (0-5)
[2023-11-16 21:58] LABS: Hematocrit 32.4 % (37-47); Hemoglobin 10.6 g/dL (12.0-15.0); Mean Corp Hgb Conc 32.7 g/dL (32-36); Mean Corpuscular Volume 88.5 fL (81-99); Mean Platelet Vol. 11.5 fl (6.2-12.0); Platelet Count 142 K/mm3 (150-450); RBC Distribution Width CV 13.3 % (11.6-14.6); RBC Distribution Width SD 42.9 fl (35.1-43.9); Red Blood Count 3.66 M/mm3 (4.2-5.4); White Blood Count 8.2 K/mm3 (4.4-11.0)
[2023-11-16 22:00] LABS: Color, Urine Yellow (Yellow); Glucose, Dipstick Normal (Normal); Ketone-Dipstick 15 mg/dl (Negative); Leukocyte Esterase-Dipstick 25 /ul (Negative); Nitrite-Dipstick Negative (Negative); Occult Blood-Urine 10 /ul (Negative); Protein-Dipstick Negative (Negative); Urine Bilirubin Dipstick Negative (Negative); Urine Clarity Clear (Clear); Urine Urobilinogen Normal (Normal)
[2023-11-16 22:08] LABS: Red Blood Cells-Urine 0-5 SEEN /hpf (0-5); Squamous Epithelial Cells - UA 5-10 SEEN /hpf (5-10)
[2023-11-16 22:18] LABS: AST(SGOT) 22 U/L (15-37); Alanine Aminotransfer ALT/SGPT 25 U/L (13-56); Creatinine, Serum 0.65 mg/dL (0.55-1.02); EST Glomerular Filtration Rate 115 mL/min (>60); Est Glom Filt Rate - Afr Amer 139 mL/min (>60); Estimated Creatinine Clearance 131.94 ml/min; Uric Acid 4.3 mg/dL (2.6-6.0)
[2023-11-16 22:22] LABS: Protein, Urine (Random) 10.8 mg/dL (<11.9); Protein:Creat Ratio 362 mg/g CRE (0-200)
[2023-11-16] MEDS: oxyCODONE 5 MG Tablet PO (22:23)
--- NOTE | 2023-11-16 23:28 | HP.PCM.OB_ITS ---
HPI - General General Date of Admission: 11/16/23 HPI Narrative HANH DOLAN, is a 28 F who presents with preeclampsia and persistent severe 10/10 headache despite tylenol and ocyxodone. she denies any visual changes or N/V. she was seen in triage yesterday and had proteinuria but normal bps, returned tod yaand had elevted bps and rising proteinuria, persistent HART Maternal Data Information ANNA Calculator Estimated Delivery Date Method Current WG Current Estimate 12/12/23 Ultrasound #1 36w 3d Other Estimates 12/15/23 LMP (Uncertain) 36w 0d PFSH PFSH Medical History (Updated 11/17/23 @ 02:[address] Jyothi Lacey MD) Abnormal Pap smear of cervix History of pre-term labor Retained placenta or membranes Headache Ectopic Pre-eclampsia Herpes genitalis Migraines Anemia affecting Anxiety Home Medications ?Medication ?Instructions ?Recorded ?Last Taken ?Type hydroxyzine pamoate 25 mg capsule 25 mg PO TID PRN headache #20 caps 06/28/23 Unknown Rx (Vistaril) cyanocobalamin (vitamin B-12) 1,000 mcg IM QMONTH 10/30/23 11/15/23 20:00 History 1,000 mcg/mL injection solution 1,000 mcg docosahexaenoic acid 200 mg 200 mg PO DAILY 10/30/23 11/15/23 21:00 History capsule ( DHA) aspirin 81 mg capsule 81 mg PO DAILY 11/15/23 11/16/23 17:00 History magnesium 2 tab PO DAILY pregnan 11/15/23 11/15/23 21:00 History Allergy/AdvReac Type Severity Reaction Status Date / Time nitrofurantoin (From Allergy Unknown Hives Verified 11/16/23 21:26 Macrobid) nickel Allergy Rash Verified 11/16/23 21:26 Sulfa (Sulfonamide Allergy Hives Verified 11/16/23 21:26 Antibiotics) Family History Father Squamous cell carcinoma Mother Hyperlipidemia Surgical History (Updated 11/17/23 @ 01:01 by Rossy Stevenson) [place] teeth removed Hx of cholecystectomy Social History Smoking Status: Never smoker alcohol intake: never substance use type: does not use caffeine: Yes what type of physical activity do you participate in: none seatbelt use: always do you feel safe at home: Yes additional social history: Boyfriend-Aftab History 4 Elective abortions Hx Para 2 Spontaneous abortions Hx # Term Pregnancies Ectopic pregnancies Hx # Pregnancies Multiple births # of living children 2 Past Pregnancies Del. Date Name GA/Weeks Outcome Route Bth Weight Infant Gen Labor Lgth Anesthesia Del Locatn Provider FOB 07/24/15 [place] 39 live - full term 6lbs 9oz Female epidural [facility] Dr. Edna Brambila 07/08/19 [place] 37 live - full term 8lbs 6oz Male [facility] Dr. Edna Bethea Sven Delivery Date: 07/24/15 Last Updated by: Lissa Ngo No issues during or delivery Delivery Date: 07/08/19 Last Updated by: Lissa Ngo Went into pre-term labor at 36 weeks but was able to stop labor. Developed pre-eclampsia and was induced at 37 weeks. Retained placenta, curettage immediately after delivery Visit Details Expected Delivery Route/Plan Labor Preferences- CB/BF classes: no labor support person: Aftab labor intervention preferences: pain management options preferred: limited intervention if she can tolerate cut cord/dad catch: Dad wants to help deliver and cut cord : yes PP control planned: discussed discussed possible routes of delivery and associated risks: [] special requests: [] Plans Covid status: unvaccinate Flu vaccine: vaccinated this year Tdap vaccine: given Rhogam: NA LARC form signed: yes Problem list reviewed and updated with the most current plan of care details and appropriate orders placed. Relevant counseling for the gestational age provided. Continue routine care and follow up unless otherwise noted in visit notes/problem list details OB Flowsheet Initial Weight: Not Recorded Date -?-?-?-?-?-?-?-?-?-?-?-?- EGA Weight BP Urine Prot -?-?-?-?-?-?-?-?-?-?-?-?- Glucose FHR FuHt Pres Dilation -?-?-?-?-?-?-?-?-?-?-?-?- Effaced St Visit Note 04/28/23 -?-?-?-?-?-?-?-?-?-?-?-?- 7w 3d 149 lb 2 oz 133/85 -?-?-?-?-?-?-?-?-?-?-?-?- 163 -?-?-?-?-?-?-?-?-?-?-?-?- JV- CRL is consi stent with her presumed LMP. states has not had a real period in 8 years. was using iud until recently 05/22/23 -?-?-?-?-?-?-?-?-?-?-?-?- 10w 6d 148 lb 2 oz 128/82 Nega tive -?-?-?-?-?-?-?-?-?-?-?-?- Negative 168 -?-?-?-?-?-?-?-?-?-?-?-?- MH-Brief US to c onfirm live IUP. Denies VB. Nausea persists, declines RX 06/28/23 -?-?-?-?-?-?-?-?-?-?-?-?- 16w 1d 153 lb 113/79 Negative -?-?-?-?-?-?-?-?-?-?-?-?- Negative 158 -?-?-?-?-?-?-?-?-?-?-?-?- -No VB. Some f lutters. Nausea resolved. Still w headaches most days, phenergan not helpful. Will try vistaril. Call if no improvement. 07/28/23 -?-?-?-?-?-?-?-?-?-?-?-?- 20w 3d 158 lb 110/73 Negative -?-?-?-?-?-?-?-?-?-?-?-?- Negative 145 -?-?-?-?-?-?-?-?-?-?-?-?- JV- no lof, vagi nal bleeding, or cramping other than lia caballero contractions. dad wants to catch the baby at delivery if possible. pharmacist told patient that vistaril will cause defects. had to tell patient that it is widely used in and no human studies show risks of defects. 08/21/23 -?-?-?-?-?-?-?-?-?-?-?-?- 23w 6d 164 lb 117/77 Negative -?-?-?-?-?-?-?-?-?-?-?-?- Negative 147 -?-?-?-?-?-?-?-?-?-?-?-?- MH-NO VB, LOF. G ood FM. 2nd US today to complete anatomy. Itching lower left leg. None hands, feet abdomen. No rash. Gladis, FF, maria l. Call if worsend 09/18/23 -?-?-?-?-?-?-?-?-?-?-?-?- 27w 6d 173 lb 2 oz 114/77 Nega tive -?-?-?-?-?-?-?-?-?-?-?-?- Negative 151 28 -?-?-?-?-?-?-?-?-?-?-?-?- JV- no lof, vagi nal bleeding, or dec fm. no complaints today. gct and cbc done but pending. 10/04/23 -?-?-?-?-?-?-?-?-?-?-?-?- 30w 1d 176 lb 116/77 Negative -?-?-?-?-?-?-?-?-?-?-?-?- Negative 145 30 -?-?-?-?-?-?-?-?-?-?-?-?- MH-No VB, LOF. G ood FM. Still has cough from covid 2 wk ago. Will call PCP. Taking low dose ASA 10/18/23 -?-?-?-?-?-?-?-?-?-?-?-?- 32w 1d 178 lb 2 oz 118/84 Nega tive -?-?-?-?-?-?-?-?-?-?-?-?- Negative 140 33 -?-?-?-?-?-?-?-?-?-?-?-?- LC- no vb/ctx/lo f. good fm. no concerns today. 10/30/23 -?-?-?-?-?-?-?-?-?-?-?-?- 33w 6d 183 lb 120/82 Negative -?-?-?-?-?-?-?-?-?-?-?-?- Negative 148 36 -?-?-?-?-?--?-?-?-?-?-?-?- MH-No VB, LOF. G ood FM. Feeling more uncomfortable. Growth US ordered NST FHR Rate Baby A Baseline: 130 Variability:: Moderate Accelerations:: 15 x 15 Decelerations:: None NST Reactive:: Yes FHR Category:: Category I Uterine Activity:: irregular ROS Constitutional Constitutional: Reports systems reviewed and no addt'l complaints, except as documented Eyes Eyes: Denies change in vision ENT HEENT: Reports systems reviewed and no addt'l complaints, except as documented; Denies headache(s) Cardiovascular Cardiovascular: Reports systems reviewed and no addt'l complaints, except as documented; Denies chest pain or dyspnea Respiratory/Chest Respiratory/Chest: Reports systems reviewed and no addt'l complaints, except as documented Gastrointestinal Gastrointestinal: Reports systems reviewed and no addt'l complaints, except as documented; Denies abdominal pain Genitourinary Genitourinary: Reports systems reviewed and no addt'l complaints, except as documented, contractions Details: present (irregular) and movement Details: present; Denies dysuria or genital lesions Musculoskeletal Musculoskeletal: Reports systems reviewed and no addt'l complaints, except as documented Neurologic Neurologic: Reports systems reviewed and no addt'l complaints, except as doc umented Endocrine Endocrinology: Reports systems reviewed and no addt'l complaints, except as documented Vital Signs Vital Signs Vital Signs: 11/16/23 21:16 11/16/23 21:16 11/16/23 21:16 Temperature Temperature Source Pulse Rate 102 H 102 H Respiratory Rate Blood Pressure BP Systolic BP Diastolic Pulse Ox 98 11/16/23 21:16 11/16/23 21:17 11/16/23 21:17 Temperature Temperature Source Pulse Rate Respiratory Rate Blood Pressure 133/93 H 133/93 H BP Systolic 133 133 BP Diastolic 93 93 Pulse Ox 98 11/16/23 21:17 11/16/23 21:17 11/16/23 21:17 Temperature Temperature Source Temporal Pulse Rate 110 H 110 H Respiratory Rate Blood Pressure BP Systolic BP Diastolic Pulse Ox 11/16/23 21:17 11/16/23 21:17 11/16/23 21:17 Temperature Temperature Source Temporal Pulse Rate Respiratory Rate 20 H 20 H Blood Pressure BP Systolic BP Diastolic Pulse Ox 11/16/23 21:17 11/16/23 21:17 11/16/23 21:21 Temperature 99.3 F H 99.3 F H Temperature Source Pulse Rate 107 H Respiratory Rate Blood Pressure BP Systolic BP Diastolic Pulse Ox 11/16/23 21:21 11/16/23 21:21 11/16/23 21:21 Temperature Temperature Source Pulse Rate 107 H Respiratory Rate Blood Pressure BP Systolic BP Diastolic Pulse Ox 98 98 11/16/23 21:26 11/16/23 21:26 11/16/23 21:26 Temperature Temperature Source Pulse Rate 98 98 Respiratory Rate Blood Pressure BP Systolic BP Diastolic Pulse Ox 97 11/16/23 21:26 11/16/23 21:31 11/16/23 21:31 Temperature Temperature Source Pulse Rate 93 93 Respiratory Rate Blood Pressure BP Systolic BP Diastolic Pulse Ox 97 11/16/23 21:31 11/16/23 21:31 11/16/23 21:32 Temperature Temperature Source Pulse Rate Respiratory Rate Blood Pressure 136/93 H BP Systolic 136 BP Diastolic 93 Pulse Ox 97 97 11/16/23 21:32 11/16/23 21:32 11/16/23 21:32 Temperature Temperature Source Pulse Rate 96 96 Respiratory Rate Blood Pressure 136/93 H BP Systolic 136 BP Diastolic 93 Pulse Ox 11/16/23 21:36 11/16/23 21:36 11/16/23 21:36 Temperature Temperature Source Pulse Rate 105 H 105 H Respiratory Rate Blood Pressure BP Systolic BP Diastolic Pulse Ox 98 11/16/23 21:36 11/16/23 21:41 11/16/23 21:41 Temperature Temperature Source Pulse Rate 107 H 107 H Respiratory Rate Blood Pressure BP Systolic BP Diastolic Pulse Ox 98 11/16/23 21:41 11/16/23 21:41 11/16/23 21:46 Temperature Temperature Source Pulse Rate 96 Respiratory Rate Blood Pressure BP Systolic BP Diastolic Pulse Ox 98 98 11/16/23 21:46 11/16/23 21:46 11/16/23 21:46 Temperature Temperature Source Pulse Rate 96 Respiratory Rate Blood Pressure BP Systolic BP Diastolic Pulse Ox 97 97 11/16/23 21:49 11/16/23 21:49 11/16/23 21:49 Temperature Temperature Source Pulse Rate 104 H Respiratory Rate Blood Pressure 129/95 H 129/95 H BP Systolic 129 129 BP Diastolic 95 95 Pulse Ox 11/16/23 21:49 11/16/23 21:51 11/16/23 21:51 Temperature Temperature Source Pulse Rate 104 H 101 H 101 H Respiratory Rate Blood Pressure BP Systolic BP Diastolic Pulse Ox 11/16/23 21:51 11/16/23 21:51 11/16/23 22:03 Temperature Temperature Source Pulse Rate Respiratory Rate Blood Pressure 129/92 H BP Systolic 129 BP Diastolic 92 Pulse Ox 98 98 11/16/23 22:03 11/16/23 22:03 11/16/23 22:03 Temperature Temperature Source Pulse Rate 112 H 112 H Respiratory Rate Blood Pressure 129/92 H BP Systolic 129 BP Diastolic 92 Pulse Ox 11/16/23 22:19 11/16/23 22:19 11/16/23 22:19 Temperature Temperature Source Pulse Rate 99 Respiratory Rate Blood Pressure 133/81 H 133/81 H BP Systolic 133 133 BP Diastolic 81 81 Pulse Ox 11/16/23 22:19 11/16/23 22:32 11/16/23 22:32 Temperature Temperature Source Pulse Rate 99 Respiratory Rate Blood Pressure 135/83 H 135/83 H BP Systolic 135 135 BP Diastolic 83 83 Pulse Ox 11/16/23 22:32 11/16/23 22:32 11/16/23 22:48 Temperature Temperature Source Pulse Rate 112 H 112 H Respiratory Rate Blood Pressure 132/86 H BP Systolic 132 BP Diastolic 86 Pulse Ox 11/16/23 22:48 11/16/23 22:48 11/16/23 22:48 Temperature Temperature Source Pulse Rate 96 96 Respiratory Rate Blood Pressure 132/86 H BP Systolic 132 BP Diastolic 86 Pulse Ox 11/16/23 23:02 11/16/23 23:02 11/16/23 23:02 Temperature Temperature Source Pulse Rate 96 Respiratory Rate Blood Pressure 130/90 H 130/90 H BP Systolic 130 130 BP Diastolic 90 90 Pulse Ox 11/16/23 23:02 Temperature Temperature Source Pulse Rate 96 Respiratory Rate Blood Pressure BP Systolic BP Diastolic Pulse Ox Weight Weight: 184 lb 3.2 oz Body Mass Index (BMI) 32.6 Physical Exam Const alert, oriented x3, no apparent distress and healthy appearing HEENT normocephalic and moist oral mucous membranes Head and Scalp: atraumatic Neck full ROM, no lymphadenopathy, supple and thyroid normal General: trachea midline Lymph Lymphatic: no lymphadenopathy noted Chest inspection of chest normal Resp normal respiratory effort Cardio regular rate GI normal to inspection, nondistended, normoactive bowel sounds, soft to palpation and non-tender Inspection: gravid external exam normal Manual OB Exam: estimated gestational size appropriate, presentation cephalic, dilated, effaced and station Extremity normal to inspection General Extremity: Negative for edema Skin no rashes or lesions noted Neuro no focal motor deficits and deep tendon reflexes 2+ bilaterally Motor Exam: strength 5/5 throughout and clonus absent Psych mental status grossly normal Labs Labs Labs: Blood Type O POSITIVE Antibody Screen NEGATIVE Hct 32.4 % (37-47) L Hgb 10.6 g/dL (12.0-15.0) L Obstetrics Ultrasound Syphilis Total Ab Non-reactive Rubella IgG Antibody Reactive (Nonreactive) Hep Bs Antigen Non-Reactive (Nonreactive) Hepatitis C Antibody Non-Reactive (Nonreactive) Chlamydia DNA (CARMEN) Negative (Negative) N.gonorrhoeae DNA (CARMEN) Negative (Negative) HIV 1&2 Antibody Non-Reactive (Nonreactive) Glucose 1 Hr 50 gm 109 mg/dL (70-140) Group B Strep DNA Negative (Negative) Rhogam given: No Assessment & Plan (1) Preeclampsia, severe: COMMENT: persistent headache, will start magnesium and recommend delivery (2) Large for dates affecting management of mother: QUALIFIERS: Fetus number: single or unspecified fetus Trimester: third trimester Qualified Code(s): O36.63X0 - Maternal care for excessive growth, third trimester, not applicable or unspecified COMMENT: US at 34wk: EFW 70%, AC 80% (3) COVID-19 affecting in third trimester: COMMENT: already taking 81mg asa. (4) History of abnormal cervical Pap smear: COMMENT: LGSIL in 2017, and has new partner now, rpt pap post (5) History of pre-eclampsia in prior , currently : COMMENT: Pre-e labs at [facility] ordered/nl start baby asa has new FOB (6) : QUALIFIERS: Weeks of gestation: 34 weeks Qualified Code(s): Z3A.34 - 34 weeks gestation of COMMENT: Carrier testing negative. NIPT low risk. DOC only delivery (7) Supervision of high risk in first trimester: COMMENT: [id number], girl, Anu, Landon. Boyfriend-Aftab(his first) (8) Herpes genitalis: COMMENT: start valtrex at 36 weeks PLAN: Plan Patient presents IOL, plan management for with cytotec. Pain management: plans epidural. GBS unknown, collected and ampicillin started. Management of any complications: severe preeclampsia- start mag due to neuro symptoms, no clonus or hyperreflexia. no HTN meds needed at this time, only if severely elevated bps I have reviewed the [facility] and made any clinically relevant updates.
[2023-11-16] MEDS: Lactated Ringers 1,000 ML 15 ML IV (23:47)
[2023-11-16] MEDS: Magnesium Sulfate 4gm/100mL 4 GM/100 ML IV.SOLN. IV (23:47)
--- NOTE | 2023-11-16 23:53 | OB.TRI.HP_ITS ---
HPI - General General Date of Admission: 11/15/23 HPI Narrative HANH DOLAN, is a 28 F who presents to L&D to rule out pre-eclampsia. Maternal Data Information ANNA Calculator Estimated Delivery Date Method Current WG Current Estimate 12/12/23 Ultrasound #1 36w 3d Other Estimates 12/15/23 LMP (Uncertain) 36w 0d PFSH PFSH Medical History (Updated 11/17/23 @ 02:[address] Jyothi Lacey MD) Abnormal Pap smear of cervix History of pre-term labor Retained placenta or membranes Headache Ectopic Pre-eclampsia Herpes genitalis Migraines Anemia affecting Anxiety Home Medications ?Medication ?Instructions ?Recorded ?Last Taken ?Type hydroxyzine pamoate 25 mg capsule 25 mg PO TID PRN headache #20 caps 06/28/23 Unknown Rx (Vistaril) cyanocobalamin (vitamin B-12) 1,000 mcg IM QMONTH 10/30/23 11/15/23 20:00 Histo ry 1,000 mcg/mL injection solution 1,000 mcg docosahexaenoic acid 200 mg 200 mg PO DAILY 10/30/23 11/15/23 21:00 History capsule ( DHA) aspirin 81 mg capsule 81 mg PO DAILY 11/15/23 11/16/23 17:00 History magnesium 2 tab PO DAILY pregnan 11/15/23 11/15/23 21:00 History Allergy/AdvReac Type Severity Reaction Status Date / Time nitrofurantoin (From Allergy Unknown Hives Verified 11/16/23 21:26 Macrobid) nickel Allergy Rash Verified 11/16/23 21:26 Sulfa (Sulfonamide Allergy Hives Verified 11/16/23 21:26 Antibiotics) Family History Father Squamous cell carcinoma Mother Hyperlipidemia Surgical History (Updated 11/17/23 @ 01:01 by Rossy Stevenson) [place] teeth removed Hx of cholecystectomy Social History Smoking Status: Never smoker alcohol intake: never substance use type: does not use caffeine: Yes what type of physical activity do you participate in: none seatbelt use: always do you feel safe at home: Yes additional social history: Boyfriend-Aftab History 4 Elective abortions Hx Para 2 Spontaneous abortions Hx # Term Pregnancies Ectopic pregnancies Hx # Pregnancies Multiple births # of living children 2 Past Pregnancies Del. Date Name GA/Weeks Outcome Route Bth Weight Gen Labor Lgth Anesthesia Del Locatn Provider FOB 07/24/15 [place] 39 live - full term 6lbs 9oz Female epidural [facility] Dr. Edna Brambila 07/08/19 [place] 37 live - full term 8lbs 6oz Male [facility] Dr. Edna Bethea Sven Delivery Date: 07/24/15 Last Updated by: Lissa Ngo No issues during or delivery Delivery Date: 07/08/19 Last Updated by: Lissa Rochaion Went into pre-term labor at 36 weeks but was able to stop labor. Developed pre-eclampsia and was induced at 37 weeks. Retained placenta, curettage immediately after delivery Visit Details Expected Delivery Route/Plan Labor Preferences- CB/BF classes: no labor support person: Aftab labor intervention preferences: pain management options preferred: limited intervention if she can tolerate cut cord/dad catch: Dad wants to help deliver and cut cord : yes PP control planned: discussed discussed possible routes of delivery and associated risks: [] special requests: [] Plans Covid status: unvaccinate Flu vaccine: vaccinated this year Tdap vaccine: given Rhogam: NA LARC form signed: yes Problem list reviewed and updated with the most current plan of care details and appropriate orders placed. Relevant counseling for the gestational age provided. Continue routine care and follow up unless otherwise noted in visit notes/problem list details OB Flowsheet Initial Weight: Not Recorded Date -?-?-?-?-?-?-?-?-?-?-?-?- EGA Weight BP Urine Prot -?-?-?-?-?-?-?-?-?-?-?-?- Glucose FHR FuHt Pres Dilation -?-?-?-?-?-?-?-?-?-?-?-?- Effaced St Visit Note 04/28/23 -?-?-?-?-?-?-?-?-?-?-?-?- 7w 3d 149 lb 2 oz 133/85 -?-?-?-?-?-?-?-?-?-?-?-?- 163 -?-?-?-?-?-?-?-?-?-?-?-?- JV- CRL is consi stent with her presumed LMP. states has not had a real period in 8 years. was using iud until recently 05/22/23 -?-?-?-?-?-?-?-?-?-?-?-?- 10w 6d 148 lb 2 oz 128/82 Nega tive -?-?-?-?-?-?-?-?-?-?-?-?- Negative 168 -?-?-?-?-?-?-?-?-?--?-?-?- MH-Brief US to c onfirm live IUP. Denies VB. Nausea persists, declines RX 06/28/23 -?-?-?-?-?-?-?-?-?-?-?-?- 16w 1d 153 lb 113/79 Negative -?-?-?-?-?-?-?-?-?-?-?-?- Negative 158 -?-?-?-?-?-?-?-?-?-?-?-?- MH-No VB. Some f lutters. Nausea resolved. Still w headaches most days, phenergan not helpful. Will try vistaril. Call if no improvement. 07/28/23 -?-?-?-?-?-?-?-?-?-?-?-?- 20w 3d 158 lb 110/73 Negative -?-?-?-?-?-?-?-?-?-?-?-?- Negative 145 -?-?-?-?-?-?-?-?-?-?-?-?- JV- no lof, vagi nal bleeding, or cramping other than lia caballero contractions. dad wants to catch the baby at delivery if possible. pharmacist told patient that vistaril will cause defects. had to tell patient that it is widely used in and no human studies show risks of defects. 08/21/23 -?-?-?-?-?-?-?-?-?-?-?-?- 23w 6d 164 lb 117/77 Negative -?-?-?-?-?-?-?-?-?-?-?-?- Negative 147 -?-?-?-?-?-?-?-?-?-?-?-?- MH-NO VB, LOF. G ood FM. 2nd US today to complete anatomy. Itching lower left leg. None hands, feet abdomen. No rash. Gladis, FF, maria l. Call if worsend 09/18/23 -?-?-?-?-?-?-?-?-?-?-?-?- 27w 6d 173 lb 2 oz 114/77 Nega tive -?-?-?-?-?-?-?-?-?-?-?-?- Negative 151 28 -?-?-?-?-?-?-?-?-?-?-?-?- JV- no lof, vagi nal bleeding, or dec fm. no complaints today. gct and cbc done but pending. 10/04/23 -?-?-?-?-?-?-?-?-?-?-?-?- 30w 1d 176 lb 116/77 Negative -?-?-?-?-?-?-?-?-?-?-?-?- Negative 145 30 -?-?-?-?--?-?-?-?-?-?-?-?- MH-No VB, LOF. G ood FM. Still has cough from covid 2 wk ago. Will call PCP. Taking low dose ASA 10/18/23 -?-?-?-?-?-?-?-?-?-?-?-?- 32w 1d 178 lb 2 oz 118/84 Nega tive -?-?-?-?-?-?-?-?-?-?-?-?- Negative 140 33 -?-?-?-?-?-?-?-?-?-?-?-?- LC- no vb/ctx/lo f. good fm. no concerns today. 10/30/23 -?-?-?-?-?-?-?-?-?-?-?-?- 33w 6d 183 lb 120/82 Negative -?-?-?-?-?-?-?-?-?-?-?-?- Negative 148 36 -?-?-?-?-?-?-?-?-?-?-?-?- MH-No VB, LOF. G ood FM. Feeling more uncomfortable. Growth US ordered ROS Constitutional Constitutional: Reports systems reviewed and no addt'l complaints, except as documented Gastrointestinal Gastrointestinal: Denies bloating, constipation, cramping, diarrhea, nausea or vomiting Genitourinary Genitourinary: Reports other Details: Denies vaginal odor, vaginal bleeding, or vaginal discharge ; Denies difficulty urinating or flank pain NST FHR Rate Baby A Baseline: 150 Variability:: Moderate Accelerations:: 15 x 15 Decelerations:: None NST Reactive:: Yes FHR Category:: Category I Assessment & Plan (1) Large for dates affecting management of mother: QUALIFIERS: Fetus number: single or unspecified fetus Trimester: third trimester Qualified Code(s): O36.63X0 - Maternal care for excessive growth, third trimester, not applicable or unspecified COMMENT: US at 34wk: EFW 70%, AC 80% (2) COVID-19 affecting in third trimester: COMMENT: already taking 81mg asa. (3) History of abnormal cervical Pap smear: COMMENT: LGSIL in 2017, and has new partner now, rpt pap post (4) History of pre-eclampsia in prior , currently : COMMENT: Pre-e labs at [facility] ordered/nl start baby asa has new FOB (5) : QUALIFIERS: Weeks of gestation: 34 weeks Qualified Code(s): Z3A.34 - 34 weeks gestation of COMMENT: Carrier testing negative. NIPT low risk. DOC only delivery (6) Supervision of high risk in first trimester: COMMENT: [id number], girl, Anu, Landon. Boyfriend-Aftab(his first) (7) Herpes genitalis: COMMENT: start valtrex at 36 weeks PLAN: Plan nursing reports normal labs other than slightly elevated PC ratio. plan IOL at 37 weeks Charges/Coding Multi Select Codes Visit Charges Office Visit/Consults: 80825 OV L3 Est 20min Urinary/Genital Urinary/Genital CPT Codes: 64868-96 non-stress test Interp
[2023-11-17] VITALS (256 sets, daily range): BP systolic 72–146; BP diastolic 39–89; PULSE 87–185; RESP 14–24; TEMP 35.6–37.4; O2SAT 80–100
[2023-11-17] MEDS: Magnesium Sulfate 20 GM/500 ML BAG IV ×4 (00:09→23:20)
[2023-11-17 00:12] LABS: Syphilis Antibodies Non-reactive
[2023-11-17] MEDS: Ampicillin 2 GM in 0.9% Normal Saline (100mL MB+) 100 ML IV (00:27)
[2023-11-17] MEDS: Betamethasone/Betamethasone 30 MG/5 ML Vial 12 MG IM (00:38)
[2023-11-17] MEDS: miSOPROStol 25 MCG TABLET VAGINAL (01:30)
[2023-11-17] MEDS: Ampicillin 1,000 MG in 0.9% Normal Saline (50mL MB+) 50 ML 150 MG IV ×4 (05:47→18:00)
[2023-11-17] MEDS: miSOPROStol 50 MCG TABLET VAGINAL (05:47)
[2023-11-17] MEDS: 0.9% Normal Saline Single 100 ML IV.SOLN. INTRA-UTER (10:30)
--- NOTE | 2023-11-17 10:32 | PCM.PN.OB ---
Subjective Subjective intermittent headaches, denies ruq pain or changes in vision. Objective Data Objective Data Vital Signs: Vital Signs Temp Pulse Resp BP Pulse Ox O2 Del Method 98.0 F 101 H 18 146/82 H 97 Room Air 11/17/23 07:00 11/17/23 09:42 11/17/23 07:00 11/17/23 09:42 11/17/23 07:48 11/17/23 07:00 Oxygen Delivery Method Room Air Weight: 184 lb 3.2 oz Body Mass Index (BMI) 32.6 Intake & Output: Intake and Output for Last 24 Hours 11/15/23 11/16/23 11/17/23 23:59 23:59 23:59 Intake Total 892.5 / 892.5 Output Total 1220 / 1220 Balance -327.5 / -327.5 Lab / Micro Data 11/16/23 21:40 11/16/23 21:40 Labs: Laboratory Results - last 24 hr 11/16/23 21:00: Urine Color Yellow, Urine Clarity Clear, Urine pH 7.0, Ur Specific [place] 1.010, Urine Protein Negative, Urine Glucose (UA) Normal, Urine Ketones 15 H, Urine Occult Blood 10 H, Urine Nitrite Negative, Urine Bilirubin Negative, Urine Urobilinogen Normal, Ur Leukocyte Esterase 25 H, Urine RBC 0-5 SEEN, Urine WBC 0 SEEN, Ur Squamous Epith Cells 5-10 SEEN, Urine Bacteria 0 SEEN, Urine Mucus 0 SEEN, U Random Total Protein 10.8, Urine Creatinine 29.80, Protein/Creatinin Ratio 362 H 11/16/23 21:40: WBC 8.2, RBC 3.66 L, Hgb 10.6 L, Hct 32.4 L, MCV 88.5, MCH 29.0, MCHC 32.7, RDW Std Deviation 42.9, RDW Coeff of Jerome 13.3, Plt Count 142 L, MPV 11.5, Creatinine 0.65, Estim Creat Clear Calc 131.94, Est GFR (MDRD) Af Amer 139, Est GFR (MDRD) Non-Af 115, Uric Acid 4.3, AST 22, ALT 25, Syphilis Total Ab Non-reactive, Blood Type O POSITIVE, Antibody Screen NEGATIVE Micro: Microbiology 11/16/23 23:40 Genital vaginal Group B Streptococcus (PCR) - Final Physical Exam Const alert, oriented x3, no apparent distress and healthy appearing HEENT normocephalic and moist oral mucous membranes Head and Scalp: atraumatic Neck full ROM, no lymphadenopathy, supple and thyroid normal General: trachea midline Lymph Lymphatic: no lymphadenopathy noted Chest inspection of chest normal Resp normal respiratory effort Cardio regular rate GI normal to inspection, nondistended, normoactive bowel sounds, soft to palpation and non-tender Inspection: gravid external exam normal Manual OB Exam: estimated gestational size appropriate, presentation cephalic, dilated 2, effaced 50 and station -2 Extremity normal to inspection General Extremity: Negative for edema Skin no rashes or lesions noted Neuro no focal motor deficits Motor Exam: strength 5/5 throughout and clonus absent Psych mental status grossly normal Assessment & Plan (1) Preeclampsia, severe: COMMENT: persistent headache, will start magnesium and recommend delivery (2) Encounter for induction of labor: COMMENT: s/p cytotec bonner bulb, to add pitocin based on protocol PLAN: Plan -plans epidural -continue frequent reposition for sciatic discomfort. -strict I&O -reassuring maternal and status.
[2023-11-17] MEDS: fentaNYL-bupivacaine (epidural) 100 ML BAG EPIDURAL ×2 (11:30→15:57)
[2023-11-17] MEDS: Ondansetron 4 MG/2 ML Vial IV ×2 (11:53→19:26)
--- NOTE | 2023-11-17 17:55 | PN.OBGYN_ITS ---
Subjective Subjective improved with epidural increase dose. Objective Data Objective Data Vital Signs: Vital Signs Temp Pulse Resp BP Pulse Ox O2 Del Method 98.3 F 116 H 18 118/66 100 Room Air 11/17/23 16:00 11/17/23 17:51 11/17/23 16:00 11/17/23 17:49 11/17/23 17:51 11/17/23 16:00 Oxygen Delivery Method Room Air Weight: 184 lb 3.2 oz Body Mass Index (BMI) 32.6 Intake & Output: Intake and Output for Last 24 Hours 11/15/23 11/16/23 11/17/23 23:59 23:59 23:59 Intake Total 1467.5 / 1467.5 Output Total 1870 / 1870 Balance -402.5 / -402.5 Lab / Micro Data 11/16/23 21:40 11/16/23 21:40 Labs: Laboratory Results - last 24 hr 11/16/23 21:00: Urine Color Yellow, Urine Clarity Clear, Urine pH 7.0, Ur Specific [place] 1.010, Urine Protein Negative, Urine Glucose (UA) Normal, Urine Ketones 15 H, Urine Occult Blood 10 H, Urine Nitrite Negative, Urine Bilirubin Negative, Urine Urobilinogen Normal, Ur Leukocyte Esterase 25 H, Urine RBC 0-5 SEEN, Urine WBC 0 SEEN, Ur Squamous Epith Cells 5-10 SEEN, Urine Bacteria 0 SEEN, Urine Mucus 0 SEEN, U Random Total Protein 10.8, Urine Creatinine 29.80, P rotein/Creatinin Ratio 362 H 11/16/23 21:40: WBC 8.2, RBC 3.66 L, Hgb 10.6 L, Hct 32.4 L, MCV 88.5, MCH 29.0, MCHC 32.7, RDW Std Deviation 42.9, RDW Coeff of Jerome 13.3, Plt Count 142 L, MPV 11.5, Creatinine 0.65, Estim Creat Clear Calc 131.94, Est GFR (MDRD) Af Amer 139, Est GFR (MDRD) Non-Af 115, Uric Acid 4.3, AST 22, ALT 25, Syphilis Total Ab Non-reactive, Blood Type O POSITIVE, Antibody Screen NEGATIVE Micro: Microbiology 11/16/23 23:40 Genital vaginal Group B Streptococcus (PCR) - Final NST FHR Rate Baby A Baseline: 130 Variability:: Minimal and Moderate Accelerations:: 15 x 15 Decelerations:: Early NST Reactive:: Yes FHR Category:: Category I Assessment & Plan (1) Encounter for induction of labor: COMMENT: s/p cytotec bonner bulb, to add pitocin based on protocol PLAN: -AROM for large amount of fluid around 1:50pm, unchanged cervical exam will add pitocin -internal monitors placed. titrate pitocin to MDU to 250 -reassuring maternal and status occasionally minimal variability improves with position changes. (2) Preeclampsia, severe: COMMENT: persistent headache, will start magnesium and recommend delivery (3) Large for dates affecting management of mother: QUALIFIERS: Fetus number: single or unspecified fetus Trimester: third trimester Qualified Code(s): O36.63X0 - Maternal care for excessive growth, third trimester, not applicable or unspecified COMMENT: US at 34wk: EFW 70%, AC 80%
[2023-11-17] MEDS: Oxytocin 15 Units/NS 250ml 15 UNITS/250 ML IV.SOLN 2 UNITS IV (18:06)
[2023-11-17] MEDS: 0.9% Saline Lock 10 ML Syringe IV (19:26)
[2023-11-17] MEDS: Lactated Ringers 1,000 ML 15 ML IV (19:27)
[2023-11-17] MEDS: proCHLORPERazine 10 MG/2 ML Vial IV (19:46)
[2023-11-17] MEDS: LACTATED RINGERS 500 ML 999 ML IV (19:56)
[2023-11-17] MEDS: fentaNYL 100 MCG/2 ML Ampul IV (21:07)
[2023-11-17] MEDS: TRANEXAMIC ACID 1,000 MG in 0.9% Normal Saline (100mL Bag) 100 ML 440 MG IV (21:21)
--- NOTE | 2023-11-17 21:22 | OP.PCM_ITS ---
Assessment & Plan (1) (spontaneous vaginal delivery): COMMENT: LC IOL severe PEC 36.3. girl Kimmie. (2) Retained placenta: COMMENT: manually removed by SM. Maternal Data Information ANNA Calculator Estimated Delivery Date Method Current WG Current Estimate 12/12/23 Ultrasound #1 36w 3d Other Estimates 12/15/23 LMP (Uncertain) 36w 0d Final ANNA: 12/12/23 Vaginal Delivery Maternal Presentation Maternal Presentation: Medically Indicated Induction Maternal Presentation: at 36.3 with IOL for severe PEC s/p cytotec, bonner bulb, pitocin AROM. progressed quickly once achieved 6cm and became fully dilated within a few contractions on hands and knees following prolonged decel with urge to push. Type of Induction: Pitocin, Bonner Bulb, Amniotomy and Cytotec Medical Reason for Induction: Maternal Medical Condition: list: Operative Information Date of Procedure: 11/17/23 Pre-Operative Diagnosis: see problem list Post-Operative Diagnosis: Surgery / Procedure Performed: Spontaneous Vaginal Delivery Type of Anesthesia: Epidural Drain: Bonner to straight drain Estimated Blood Loss: 400 Time of Delivery: 20:39 Findings Description of Procedure: Patient began pushing and delivered the head in the ASHLEY presentation. The head was delivered atraumatically and a loose nuchal cord ?2 was identified and easily reduced over the infant's head. The anterior and posterior shoulders delivered without complication followed by the rest of the and the infant was placed on the maternal abdomen. Delayed cord clamping was employed for approximately 2 minutes seconds. Cord was clamped and cut and gentle traction was applied to the cord and the placenta was manually removed by Dr. Lacey spontaneously immediately following it was noted to be intact with three-vessel cord. The perineum and vagina were inspected and noted to have no laceration. EBL was 400cc, bleeding controlled with hemabate, pitocin and TXa provided for retained placenta, uterus firm. Patient and tolerated delivery well. Presentation: Vertex Amniotic Membrane Rupture Type: Artificial Amniotic Fluid Description: Clear Placental Delivery Description: Manual Removal and Retained Placenta Disposition: [facility] Cord Vessel Description: 3 Vessels Cord Entanglement: Around neck x 2, loose Nuchal Cord Compression: With compression Cord Gases: ABG and VBG Infant A Gender: Female (1 minute): 7 (5 minute): 8 Delayed Cord Clamping: Yes Post Vaginal Delivery Medications Given After Delivery: IV Pitocin and IM Hemabate Episiotomy Description: None Laceration: None Complication Complications: - (retained placenta) Procedures Urinary/Genital [id number]: [id number] Vaginal Delivery [facility]
[2023-11-17] MEDS: Carboprost Tromethamine 250 MCG/ML Ampul IM (21:24)
[2023-11-17] MEDS: Oxytocin 15 Units/NS 250ml 15 UNITS/250 ML IV.SOLN 83 UNITS IV (22:10)
[2023-11-17] MEDS: Naproxen 500 MG Tablet PO (22:23)
[2023-11-17] MEDS: Loperamide 2 MG Capsule PO (23:45)
[2023-11-18] VITALS (146 sets, daily range): BP systolic 100–146; BP diastolic 56–83; PULSE 60–106; RESP 14–16; TEMP 36.2–37; O2SAT 94–100
[2023-11-18] MEDS: Magnesium Sulfate 20 GM/500 ML BAG IV (06:06)
[2023-11-18] MEDS: Naproxen 500 MG Tablet PO (08:12)
[2023-11-18 09:29] LABS: Absolute Lymphocyte Count 1.22 X10^3/uL (0.83-4.51); Absolute Neutrophil Count 8.2 X10^3/uL (2.0-7.7); Basophil# 0.02 X10^3/uL; Basophil% 0.2 % (0-1); Eosinophil# 0.03 X10^3/uL; Eosinophils% 0.3 % (0-5); Hematocrit 31.4 % (37-47); Hemoglobin 10.5 g/dL (12.0-15.0); Lymphocyte # 1.22 X10^3/ul (0.83-4.51); Lymphocyte % 11.9 % (19-41); Mean Corp Hgb Conc 33.4 g/dL (32-36); Mean Corpuscular Hgb 29.6 pg (27.0-32.0); Mean Corpuscular Volume 88.5 fL (81-99); Mean Platelet Vol. 11.6 fl (6.2-12.0); Monocyte# 0.76 X10^3/uL; Monocyte% 7.4 % (0-10); NRBC Flagged by Analyzer 0 % (0-5); Neutrophil # 8.21 X10^3/uL (2.7-7.7); Neutrophil % 79.7 % (47-70); Platelet Count 155 K/mm3 (150-450); RBC Distribution Width CV 13.6 % (11.6-14.6); RBC Distribution Width SD 43.9 fl (35.1-43.9); Red Blood Count 3.55 M/mm3 (4.2-5.4); White Blood Count 10.3 K/mm3 (4.4-11.0)
[2023-11-18 09:56] LABS: ALB/GLOB Ratio 0.7 RATIO (0.9-2.4); AST(SGOT) 32 U/L (15-37); Alanine Aminotransfer ALT/SGPT 37 U/L (13-56); Albumin, Serum 2.6 g/dL (3.2-5.0); Alkaline Phosphatase 139 U/L (45-117); Anion Gap 8 (5-15); BUN 2 mg/dL (7-18); BUN/Creat Ratio 3.2 RATIO (10-20); Calcium,Total 7.2 mg/dL (8.5-10.1); Chloride 108 mmol/L (98-107); Creatinine, Serum 0.62 mg/dL (0.55-1.02); EST Glomerular Filtration Rate 121 mL/min (>60); Est Glom Filt Rate - Afr Amer 146 mL/min (>60); Estimated Creatinine Clearance 138.32 ml/min; Globulin 3.5 g/dL (2.2-4.2); Glucose 104 mg/dL (74-106); Potassium 3.2 mmol/L (3.5-5.1); Protein, Total 6.1 g/dL (6.4-8.2); Sodium Level 138 mmol/L (136-145)
--- NOTE | 2023-11-18 10:57 | PN.OBGYN_ITS ---
Subjective Subjective Patient doing well without complaints. Tolerating PO. Ambulating and voiding without difficulty. Feeding well. Denies chest pain, shortness of breath, calf pain/swelling, fevers, chills, lightheadedness.denies headaches, ruq pain or visual changes. Objective Data Objective Data Vital Signs: Vital Signs Temp Pulse Resp BP Pulse Ox O2 Del Method 97.7 F L 104 H 16 118/77 99 Room Air 11/18/23 09:00 11/18/23 10:34 11/18/23 09:00 11/18/23 09:13 11/18/23 10:34 11/18/23 09:00 Oxygen Delivery Method Room Air Weight: 184 lb 3.2 oz Body Mass Index (BMI) 32.6 Intake & Output: Intake and Output for Last 24 Hours 11/16/23 11/17/23 11/18/23 23:59 23:59 23:59 Intake Total 3464.08 / 3464.08 1093.33 / 1093.33 Output Total 4120 / 4120 1974 / 1974 Balance -655.92 / -655.92 -881.67 / -881.67 Lab / Micro Data Attestation: I reviewed the patient's lab results. 11/18/23 09:15 11/18/23 09:15 Labs: Laboratory Results - last 24 hr 11/18/23 09:15: WBC 10.3, RBC 3.55 L, Hgb 10.5 L, Hct 31.4 L, MCV 88.5, MCH 29.6, MCHC 33.4, RDW Std Deviation 43.9, RDW Coeff of Jerome 13.6, Plt Count 155, MPV 11.6, Immature Gran % (Auto) 0.500, Neut % (Auto) 79.7 H, Lymph % (Auto) 11.9 L, [place] % (Auto) 7.4, Eos % (Auto) 0.3, Baso % (Auto) 0.2, Absolute Neuts (auto) 8.2 H, Absolute Lymphs (auto) 1.22, Nucleated RBC % 0, Sodium 138, P otassium 3.2 L, Chloride 108 H, Carbon Dioxide 22.0, Anion Gap 8, BUN 2 L, Creatinine 0.62, Estim Creat Clear Calc 138.32, Est GFR (MDRD) Af Amer 146, Est GFR (MDRD) Non-Af 121, BUN/Creatinine Ratio 3.2 L, Glucose 104, Calcium 7.2 L, Total Bilirubin 0.40, AST 32, ALT 37, Alkaline Phosphatase 139 H, Total Protein 6.1 L, Albumin 2.6 L, Globulin 3.5, Albumin/Globulin Ratio 0.7 L Micro: Microbiology 11/16/23 23:40 Genital vaginal Group B Streptococcus (PCR) - Final Physical Exam Const alert and oriented x3 HEENT normocephalic Neck full ROM Lymph Lymphatic: no lymphadenopathy noted Chest inspection of chest normal and inspection of breasts normal Resp normal respiratory effort, normal air movement and no retractions Cardio regular rate and regular rhythm GI normal to inspection, nondistended, normoactive bowel sounds Uterus Palpation: uterus fundus firm Extremity normal to inspection, full ROM and no calf tenderness Skin no rashes or lesions noted Psych mental status grossly normal Assessment & Plan (1) (spontaneous vaginal delivery): COMMENT: LC IOL severe PEC 36.3. girl Kimmie. (2) Preeclampsia, severe: COMMENT: persistent headache, will start magnesium and recommend delivery PLAN: cbc and cmp stable. stable neurological exam plan to d/c magnesium continue to monitor BP. currently stable. PLAN: Plan s/p PPD # 1 1. routine post delivery care 2. breast feeding- support given 3. rh positive 4. rubella immune
[2023-11-19 02:24] VITALS: BP 121/71; PULSE 78
[2023-11-19 02:30] VITALS: BP 121/71; PULSE 78; RESP 16; TEMP 36.3; O2SAT 96
[2023-11-19 07:24] VITALS: BP 114/87; PULSE 76
[2023-11-19 07:45] VITALS: BP 114/87; PULSE 76; RESP 15; TEMP 36.6
--- NOTE | 2023-11-19 09:13 | DS.PCM_ITS ---
Providers Date of Admission: 11/16/23 Primary Care Physician: Dr. Aurora Madrigal DO Reason For Visit: VAG Diagnosis Discharge Diagnosis (1) (spontaneous vaginal delivery): Status: Acute Code(s): O80 - Encounter for full-term uncomplicated delivery (2) Preeclampsia, severe: Status: Acute Code(s): O14.10 - Severe pre-eclampsia, unspecified trimester Plan: cbc and cmp stable. stable neurological exam plan to d/c magnesium continue to monitor BP. currently stable. Plan s/p PPD # 1 1. routine post delivery care 2. breast feeding- support given 3. rh positive 4. rubella immune Medications at Discharge Home Medications hydroxyzine pamoate 25 mg capsule (Vistaril) 25 mg PO TID PRN headache #20 caps 06/28/23 cyanocobalamin (vitamin B-12) 1,000 mcg/mL injection solution 1,000 mcg IM QMONTH 10/30/23 docosahexaenoic acid 200 mg capsule ( DHA) 200 mg PO DAILY 10/30/23 aspirin 81 mg capsule 81 mg PO DAILY 11/15/23 magnesium 2 tab PO DAILY pregnan 11/15/23 Hospital Course Operations None Procedures None Summary of Care Provided Hospital Course: pt with IOL for severe PEC resulting in , uncomplicated course. Physical Exam Const alert and oriented x3 HEENT normocephalic Neck full ROM Lymph Lymphatic: no lymphadenopathy noted Chest inspection of chest normal and inspection of breasts normal Resp normal respiratory effort, normal air movement and no retractions Cardio regular rate and regular rhythm GI normal to inspection, nondistended, normoactive bowel sounds Uterus Palpation: uterus fundus firm Extremity normal to inspection, full ROM and no calf tenderness Skin no rashes or lesions noted Neuro moves all extremities, deep tendon reflexes 2+ bilaterally and gait normal Motor Exam: strength 5/5 throughout Psych mental status grossly normal Weight / BMI Weight Weight: 184 lb 3.2 oz Body Mass Index (BMI) 32.6 ABG / Lab / Microbiology Data 11/18/23 09:15 11/18/23 09:15 Laboratory: Laboratory Results - last 24 hr 11/18/23 09:15: WBC 10.3, RBC 3.55 L, Hgb 10.5 L, Hct 31.4 L, MCV 88.5, MCH 29.6, MCHC 33.4, RDW Std Deviation 43.9, RDW Coeff of Jerome 13.6, Plt Count 155, MPV 11.6, Immature Gran % (Auto) 0.500, Neut % (Auto) 79.7 H, Lymph % (Auto) 11.9 L, [place] % (Auto) 7.4, Eos % (Auto) 0.3, Baso % (Auto) 0.2, Absolute Neuts (auto) 8.2 H, Absolute Lymphs (auto) 1.22, Nucleated RBC % 0, Sodium 138, P otassium 3.2 L, Chloride 108 H, Carbon Dioxide 22.0, Anion Gap 8, BUN 2 L, Creatinine 0.62, Estim Creat Clear Calc 138.32, Est GFR (MDRD) Af Amer 146, Est GFR (MDRD) Non-Af 121, BUN/Creatinine Ratio 3.2 L, Glucose 104, Calcium 7.2 L, Total Bilirubin 0.40, AST 32, ALT 37, Alkaline Phosphatase 139 H, Total Protein 6.1 L, Albumin 2.6 L, Globulin 3.5, Albumin/Globulin Ratio 0.7 L Microbiology: Microbiology 11/16/23 23:40 Genital vaginal Group B Streptococcus (PCR) - Final D/C Instructions Discharge Diet: No restrictions Discharge Activity: May Not Drive and May Shower May resume sexual activity in: 6 weeks Weight Bearing Status: Full weight bearing Call your doctor if your incision/area has: Sudden Increased Bleeding, Increased Pain/ Swelling and Foul Smelling Discharge Call your doctor if you observe: Fever of 101 or Higher, Numbness or Tingling, Change in Color, Inability to urinate, Inability to have a bowel movement, Using more than 1 pad per hour, Shortness of breath, Dizziness, Fainting spells, Chest pain, Calf discomfort and Uncontrolled pain Please Follow Up With: Xiomara Garner CNM When: 6 weeks , please call office to make an appointment. Congratulations on the of your baby! Meaningful Use Info Meaningful Use Meaningful Use Diagnoses (Choose all that apply): None applicable Ischemic Stroke Statin Dosing Therapy Reference: STATIN DOSE THERAPY REFERENCE: * Patients > 75 years receive moderate or high dose statin therapy. * Patients 75 years or YOUNGER should receive HIGH intensity statin dose unless contraindicated. You will be required to document reason for non-treatment if statin daily dose does not meet guidelines. HIGH DOSE STATIN THERAPY DAILY Atorvastatin > than or = to 40 mg Rosuvastatin > than or = to 20 mg Amlodipine + Atorvastatin > than or = to 2.5/40 mg Ezetimibe + Simvastatin 10/80 mg Simvastatin 80mg Discharge Plan Admission Admit Date/Time: 11/16/23 23:19 Attending Provider: Xiomara Garner Primary Care Provider: Aurora Madrigal Discharge Orders/Prescriptions Prescriptions: No Action DHA 200 mg capsule 200 mg PO DAILY hydroxyzine pamoate [Vistaril] 25 mg capsule 25 mg PO TID PRN (Reason: headache) Qty: 20 1RF cyanocobalamin (vitamin B-12) 1,000 mcg/mL solution 1,000 mcg IM QMONTH aspirin 81 mg capsule 81 mg PO DAILY magnesium Tablet 2 tab PO DAILY Referrals / Follow Up: Aurora Madrigal DO [Primary Care Provider] - Disposition Disposition (needs filled in before D/C Order can be placed): Home, Self Care
--- NOTE | 2023-11-29 07:08 | OP.PCM_ITS ---
Vaginal Delivery Findings Description of Procedure: called in my LC technical proposal writer due to retained placenta prolonged third stage over 30 minutes, placenta was sitting in the vagina visible at introitus, it was grasped and removed, and manual exploration digitally performed to confirm no retained products. no complications.
== END 2023-11-19 10:10 | disposition home or self-care (01) | DRG 806 ==
LOC: WPOUT 23:21 → WP 23:21
PROVIDERS: Obstetrics & Gynecology; Admitting Provider Registered Nurse; PCP Internal Medicine; Referring Provider Registered Nurse; Visit Provider Registered Nurse
DX: O14.14 Severe pre-eclampsia complicating childbirth (principal); Z37.0 Single live birth; O98.32 Other infections with a predominantly sexual mode of transmission complicating childbirth; O69.81X0 Labor and delivery complicated by cord around neck, without compression, not applicable or unspecified; O73.0 Retained placenta without hemorrhage; O36.63X0 Maternal care for excessive fetal growth, third trimester, not applicable or unspecified; Z3A.37 37 weeks gestation of pregnancy; A60.09 Herpesviral infection of other urogenital tract; Z79.899 Other long term (current) drug therapy; Z86.16 Personal history of COVID-19
CPT/HCPCS: 59025; 59050; 80053; 81001; 82565; 82570; 84156; 84450; 84460; 84550; 85025; 85027; 86780; 86850; 86900; 86901; 87077; 87081; 87653; 99221; J7120; A4216; G0378; J0290; J0702; J2405

== ENCOUNTER → 2024-10-25 | Outpatient (CLI) | payer BC, MEDICAID, SELFPAY ==
[2024-10-25 17:43] LABS: Protein, Urine (Random) 9.4 mg/dL (0.0-12.0); Protein:Creat Ratio 69 mg/g CRE (0-200)
[2024-10-28 21:07] LABS: Chlamydia By Nucleic Acid AMP Negative (Negative); Gonococcus By Nucleic Acid AMP Negative (Negative)
== END | disposition home or self-care (01) ==
LOC: LABSPEC 16:31
PROVIDERS: PCP Internal Medicine; Referring Provider Advanced Practice Midwife; Visit Provider Advanced Practice Midwife
DX: O14.10 Severe pre-eclampsia, unspecified trimester (principal); Z3A.00 Weeks of gestation of pregnancy not specified; Z12.4 Encounter for screening for malignant neoplasm of cervix
CPT/HCPCS: 82570; 84156; 87086; 87491; 87591; 88175; G0145

== ENCOUNTER → 2024-11-01 | Outpatient (CLI) | payer BC, MEDICAID, SELFPAY ==
[2024-11-01 12:09] LABS: Absolute Lymphocyte Count 1.78 X10^3/uL (0.83-4.51); Absolute Neutrophil Count 3.4 X10^3/uL (2.0-7.7); Basophil# 0.01 X10^3/uL; Basophil% 0.2 % (0-1); Eosinophil# 0.08 X10^3/uL; Eosinophils% 1.4 % (0-5); Hematocrit 40.8 % (37-47); Hemoglobin 13.8 g/dL (12.0-15.0); Lymphocyte # 1.78 X10^3/ul (0.83-4.51); Lymphocyte % 31.7 % (19-41); Mean Corp Hgb Conc 33.8 g/dL (32-36); Mean Corpuscular Hgb 29.7 pg (27.0-32.0); Mean Corpuscular Volume 87.7 fL (81-99); Mean Platelet Vol. 11.6 fl (6.2-12.0); Monocyte# 0.32 X10^3/uL; Monocyte% 5.7 % (0-10); NRBC Flagged by Analyzer 0 % (0-5); Neutrophil # 3.42 X10^3/uL (2.7-7.7); Neutrophil % 60.8 % (47-70); Platelet Count 194 K/mm3 (150-450); RBC Distribution Width CV 12.7 % (11.6-14.6); RBC Distribution Width SD 40.7 fl (35.1-43.9); Red Blood Count 4.65 M/mm3 (4.2-5.4); White Blood Count 5.6 K/mm3 (4.4-11.0)
[2024-11-01 13:00] LABS: ALB/GLOB Ratio 1.5 RATIO (0.9-2.4); AST(SGOT) 18 U/L (<=31); Alanine Aminotransfer ALT/SGPT 41 U/L (<=34); Albumin, Serum 4.4 g/dL (3.5-5.0); Alkaline Phosphatase 78 U/L (35-104); Anion Gap 12 (5-15); BUN 9 mg/dL (4-19); BUN/Creat Ratio 14.9 RATIO (10-20); Calcium,Total 9.6 mg/dL (7.6-11.0); Carbon Dioxide 20.6 mmol/L (21.0-32.0); Chloride 102 mmol/L (98-108); Creatinine, Serum 0.61 mg/dL (0.70-1.20); EST Glomerular Filtration Rate 124 (>60); Globulin 2.9 g/dL (2.2-4.2); Glucose 91 mg/dL (70-99); HIV Nonreactive (Nonreactive); Hepatitis B Surface Antigen Nonreactive (Nonreactive); Hepatitis C Antibody Nonreactive (Nonreactive); Potassium 4.1 mmol/L (3.3-5.1); Protein, Total 7.3 g/dL (5.9-8.4); Rubella IgG REAC (Nonreactive); Sodium Level 135 mmol/L (133-145); Syphilis Antibodies Nonreactive (Nonreactive); Total Bilirubin 0.42 mg/dL (0.00-1.30); Vitamin B12 1647 pg/mL (180-914)
== END | disposition home or self-care (01) ==
PROVIDERS: PCP Internal Medicine; Referring Provider Advanced Practice Midwife; Visit Provider Advanced Practice Midwife
DX: O14.10 Severe pre-eclampsia, unspecified trimester (principal); O99.281 Endocrine, nutritional and metabolic diseases complicating pregnancy, first trimester; R79.89 Other specified abnormal findings of blood chemistry; Z3A.00 Weeks of gestation of pregnancy not specified
CPT/HCPCS: 36415; 80053; 82607; 85025; 86703; 86762; 86780; 86803; 86850; 86900; 86901; 87340

== ENCOUNTER → 2024-11-22 | Outpatient (CLI) | payer MEDICAID, BC, SELFPAY ==
[2024-11-22 17:30] LABS: ALB/GLOB Ratio 1.4 RATIO (0.9-2.4); AST(SGOT) 22 U/L (<=31); Alanine Aminotransfer ALT/SGPT 36 U/L (<=34); Albumin, Serum 4.1 g/dL (3.5-5.0); Alkaline Phosphatase 67 U/L (35-104); Anion Gap 12 (5-15); BUN 6 mg/dL (4-19); BUN/Creat Ratio 9.5 RATIO (10-20); Calcium,Total 9.5 mg/dL (7.6-11.0); Carbon Dioxide 22.8 mmol/L (21.0-32.0); Chloride 102 mmol/L (98-108); Creatinine, Serum 0.66 mg/dL (0.70-1.20); EST Glomerular Filtration Rate 122 (>60); Globulin 2.9 g/dL (2.2-4.2); Glucose 79 mg/dL (70-99); Potassium 3.8 mmol/L (3.3-5.1); Sodium Level 137 mmol/L (133-145); Total Bilirubin 0.34 mg/dL (0.00-1.30); Vitamin B12 385 pg/mL (180-914)
== END | disposition home or self-care (01) ==
LOC: BWCLAB 14:06
PROVIDERS: PCP Internal Medicine; Referring Provider Obstetrics & Gynecology; Visit Provider Obstetrics & Gynecology
DX: R74.8 Abnormal levels of other serum enzymes (principal)
CPT/HCPCS: 36415; 80053; 82607

== ENCOUNTER → 2024-12-16 | Outpatient (CLI) | payer BC, MEDICAID, SELFPAY ==
[2024-12-16 16:07] LABS: Absolute Lymphocyte Count 2.03 X10^3/uL (0.83-4.51); Absolute Neutrophil Count 5.7 X10^3/uL (2.0-7.7); Basophil# 0.02 X10^3/uL; Basophil% 0.2 % (0-1); Eosinophil# 0.11 X10^3/uL; Eosinophils% 1.3 % (0-5); Hematocrit 38.5 % (37-47); Hemoglobin 12.9 g/dL (12.0-15.0); Lymphocyte # 2.03 X10^3/ul (0.83-4.51); Lymphocyte % 24.3 % (19-41); Mean Corp Hgb Conc 33.5 g/dL (32-36); Mean Corpuscular Hgb 29.6 pg (27.0-32.0); Mean Corpuscular Volume 88.3 fL (81-99); Mean Platelet Vol. 11.8 fl (6.2-12.0); Monocyte# 0.48 X10^3/uL; Monocyte% 5.8 % (0-10); NRBC Flagged by Analyzer 0 % (0-5); Neutrophil # 5.66 X10^3/uL (2.7-7.7); Neutrophil % 67.9 % (47-70); Platelet Count 188 K/mm3 (150-450); RBC Distribution Width CV 13.3 % (11.6-14.6); RBC Distribution Width SD 42.9 fl (35.1-43.9); Red Blood Count 4.36 M/mm3 (4.2-5.4); White Blood Count 8.3 K/mm3 (4.4-11.0)
[2024-12-16 16:30] LABS: ALB/GLOB Ratio 1.3 RATIO (0.9-2.4); AST(SGOT) 18 U/L (<=31); Alanine Aminotransfer ALT/SGPT 20 U/L (<=34); Alkaline Phosphatase 73 U/L (35-104); Anion Gap 12 (5-15); BUN 9 mg/dL (4-19); BUN/Creat Ratio 14.9 RATIO (10-20); Calcium,Total 10.3 mg/dL (7.6-11.0); Carbon Dioxide 22.7 mmol/L (21.0-32.0); Chloride 102 mmol/L (98-108); Creatinine, Serum 0.58 mg/dL (0.70-1.20); EST Glomerular Filtration Rate 126 (>60); Glucose 86 mg/dL (70-99); Potassium 4.1 mmol/L (3.3-5.1); Sodium Level 137 mmol/L (133-145)
--- OUTSIDE RECORDS SUMMARY | 2024-12-16 23:25 | XMS RPT_ITS | CCD ---
Author Organization [facility] Care Team Providers Care Community Health Educator Name Role Phone Samreen John Attending Unavailab le Longsdorf, Samreen Doe Primary Care Unavailab le Longsdorf, Samreen Doe Admitting Unavailab le Longdcorf, Samreen Doe Admitting Unavailab le Longdcorf, Samreen Doe Attending Unavailab le Polisdorf, Samreen A Primary Care Unavailab le Longdcorf, Samreen Doe Attending Unavailab le Longdcorf, Samreen A Primary Care Unavailab le Longdcorf, Samreen A Admitting Unavailab le OberHanh anaya Attending Unavailable Longsdorf, Samreen Doe Primary Care Unavailab le OberhauserHanh Attending Unavailable OberhauserHanh Admitting Unavailable Oberhauser, Hanh Hernandez Primary Care Unavailable OberhauserHanh Admitting Unavailable Oberhauser, Hanh Hernandez Attending Unavailable Oberhauser, Hanh Hernandez Primary Care Unavailable OberhauserHanh Admitting Unavailable OberhauserHanh Attending Unavailable OberhauserHanh Primary Care Unavailable Gahlawat, Lilliam Attending Unavailable OberhauserHanh Primary Care Unavailable Gahlawat, Lilliam Attending Unavailable OberhauserHanh Referring Unavailable OberhauserHanh Primary Care Unavailable Gahlawat, Lilliam Admitting Unavailable Gahlawat, Lilliam Admitting Unavailable Gahlawat, Lilliam Attending Unavailable Oberhauser, Hanh Hernandez Primary Care Unavailable Gahlawat, Lilliam Attending Unavailable Oberhauser, Hanh Hernandez Primary Care Unavailable Gahlawat, Lilliam Admitting Unavailable Gahlawat, Lilliam Attending Unavailable Oberhauser, Hanh Hernandez Primary Care Unavailable Gahlawat, Lilliam Admitting Unavailable Gahlawat, Lilliam Attending Unavailable Oberhauser, Hanh L Primary Care Unavailable Oberhauser, Hanh L Attending Unavailable Oberhauser, Hanh L Primary Care Unavailable Oberhauser, Hanh L Admitting Unavailable Oberhauser, Hanh Primary Care Provider Oberhauser, Hanh Primary Care Provider Oberhauser, Hanh Primary Care Provider OBERHAUSER, HANH Primary Care Unavailable MENDOZA HULL Attending Unavailable OBERHAUSER, HANH Primary Care Unavailable ROBERTO CARBAJAL. Consulting Unavailable YANNICK RENE Attending Unavailable JIGNESH, KENDELL N. Admitting Unavailable JIGNESH, KENDELL N. Consulting Unavailable JIGNESH, KENDELL N. Attending Unavailable OBERHAUSER, HANH Primary Care Unavailable Oberhauser, Hanh L Unavailable Unavailable Unavailable Rohan, Dr. Hanh Doyle Attending Unava ilable Oberhauser, Dr. Hanh Doyle Referring Unava ilable Oberhauser, Dr. Hanh Doyle Primary Care Unava ilable Oberhauser, Dr. Hanh Doyle Attending Unava ilable Oberhauser, Dr. Hanh Doyle Referring Unava ilable Oberhauser, Dr. Hanh Doyle Primary Care Unava ilable Oberhauser, Dr. Hanh Doyle Attending Unava ilable Oberhauser, Dr. Hanh Doyle Referring Unava ilable Oberhauser, Dr. Hanh Doyle Primary Care Unava ilable Unavailable Primary Care Provider Unavailabl e LUPE, BRUNA Attending Unavailable Oberhauser Hanh REYES Primary Care Provider OberHanh anaya DO Unavailable Rohan, Dr. Simon Primary Care Provider Rohan, Dr. Simon Referring Provider Dr. Mariely Nash Attending Provider Rohan, Dr. Simon Primary Care Provider [phone] Dr. Hanh Madrigal Referring Provider [phone] Dr. Mariely Nash Attending Provider [phone] Margi WOOD GRINDER OPERATOR, WOOD GRINDER OPERATOR-uKldip Javier Attending Provider [phone] Dr. Hanh Madrigal Primary Care Provider [phone] Dr. Hanh Madrigal Referring Provider [phone] Dr. Mariely Nash Attending Provider [phone] Margi WOOD GRINDER OPERATOR, WOOD GRINDER OPERATOR-Kuldip Javier Attending Provider [phone] Dr. Hanh Madrigal Primary Care Provider [phone] Dr. Hanh Madrigal Referring Provider [phone] Dr. Mariely Nash Attending Provider [phone] [phone]) JONN Garner Attending Provider [phone] JAYY ORBLEDO Attending Unavailable DOC, MISC Primary Care Unavailable REFERRED, SELF Referring Unavailable JAYY ROBLEDO Attending Unavailable DOC, MISC Primary Care Unavailable REFERRED, SELF Referring Unavailable LIYA LYONS Attending Unavailable MARIELY SALAZAR Referring Unavailab le DOC, MISC Primary Care Unavailable MARIELY SALAZAR Referring Unavailab le LIYA LYONS Attending Unavailable DOC, MISC Primary Care Unavailable CASSY HERNANDEZ Attending Unavailable DOC, MISC Primary Care Unavailable REFERRED, SELF Referring Unavailable LIYA LYONS Attending Unavailable DOC, MISC Primary Care Unavailable REFERRED, SELF Referring Unavailable JAYY ROBLEDO Attending Unavailable DOC, MISC Primary Care Unavailable REFERRED, SELF Referring Unavailable ЕКАТЕРИНА MADRIGALN Primary Care Unavailable JC RESENDIZ Attending Unavaila ble OBERHANH ANAYA L Primary Care Unavailable OBERHAUSER, HANH L Primary Care Unavailable OBERHAUSER, HANH L Primary Care Unavailable Oberhauser DOHanh L Primary Care Provider [phone] Oberhauser DOЕкатеринаn L Unavailable [phone] OBERHAUSHANH KRUGER L Attending Unavailable OBERHAUSER, HANH L Primary Care Unavailable OBERHAUSER, HANH L Attending Unavailable OBERHAUSER, HANH L Referring Unavailable OBERHAUSER, HANH L Primary Care Unavailable THOMAE, COLT R Attending Unavailable OBERHAUSER, HANH L Primary Care Unavailable THOMAE, COLT R Attending Unavailable OBERHAUSER, HANH L Primary Care Unavailable AUDI BUTCHER Attending Unavailable HADLEY, AUDI DOYLE Primary Care Unavailable Hadley TELEVISION ANTENNA INSTALLER, Audi Doyle Primary Care Provider Rohan REYES, Dr. Simon Primary Care Provider Rohan REYES, Dr. Simon Referring Provider Mercy Avendano CNM Attending Provider Mercy Avendano CNM Referring Provider [phone] Qi Arriaga DO, Dr. Schuster Attending Provider Qi Arriaga DO, Dr. Schuster Referring Provider Oberhauser, Hanh Referring Unavailable Oberhauser, Hanh Primary Care Unavailable Mercy Avendano Attending Unavailable Mariely Nash Attending Unavailabl e Oberhauser, Hanh Referring Unavailable Oberhauser, Hanh Primary Care Unavailable Mariely Nash Attending Unavailabl e Vande VelMariely garcia Referring Unavailabl e Oberhauser, Hanh Primary Care Unavailable Mercy Avendano Attending Unavailable Mercy Avendano Referring Unavailable Oberhauser, Hanh Primary Care Unavailable Mercy Avendano Attending Unavailable Mercy Avendano Referring Unavailable Oberhauser, Hanh Primary Care Unavailable Xiomara Garner Attending Unavailable Oberhauser, Hanh Primary Care Unavailable Oberhauser, Hanh Referring Unavailable Mercy Avendano Attending Unavailable Oberhauser, Hanh Primary Care Unavailable Oberhauser, Hanh Referring Unavailable Allergies Allergy Classification Reported Allergen(s) Allergy Type Date of Onset Reaction(s) Facility (1 source) Lactose (non-medical use); Translations: [lactose intolerant] Propensity to adverse reactions to drug (disorder) [facility] Repository (20 sources) nickel; Translations: [Nickel] Drug Allergy 07-18-19 Unknown [facility] Repository (1 source) Sulfamethoxazole; Translations: [sulfamethoxazole] Drug Allergy [facility] Repository (10 sources) Nitrofurantoin Drug Allergy 02-12-20 19 [facility] (2 sources) Sulfonamides (Antibiotic); Translations: [SULFA ANTIBIOTICS] Propensity to adverse reactions to drug 12-12-19 18 [facility] (13 sources) NITROFURANTOIN, MACROCRYSTALS / Nitrofurantoin, Monohydrate; Translations: [NITROFURANTOIN MONOHYD/M-CRYST] Drug Allergy 08-26-19 20 [facility] (20 sources) Sulfonamides (Antibiotic); Translations: [SULFA (SULFONAMIDE ANTIBIOTICS)] Propensity to adverse reactions to drug 07-01-20 15 [facility], [facility] (17 sources) Lactose; Translations: [LACTOSE] Drug Allergy 07-05-19 21 Unknown [facility] Repository (9 sources) Sulfamethoxazole / Trimethoprim; Translations: [Sulfamethoxazole-Tr imethoprim TABS] Drug Allergy 01-24-20 23 Unknown -[facility] Primary Care Work Phone: (1 source) Lactose (non-medical use); Translations: [LACTOSE INTOLERANCE (GI)] Propensity to adverse reactions to drug (disorder) [facility] Repository (2 sources) Sulfamethoxazole / Trimethoprim; Translations: [SULFAMETHOXAZOLE-TR IMETHOPRIM] Drug Allergy 01-24-20 23 [facility] Repository (1 source) Nitrofurantoin Drug Allergy 11-23-19 25 [facility] Repository Medications Current Medications Medication Drug Class(es) Dates Sig (Normalized) Sig (Original) aspirin 81 mg delayed release oral tablet (6 sources) Platelet Aggregation Inhibitor, Nonsteroidal Anti-inflammatory Drug Start: 10-10-2024 take 1 tablet by mouth once daily Aspirin 81 mg tablet,delayed release (DR/EC) Active 81 mg PO daily October 10, 2024 12:00am Start: 11-15-2023 End: 12-29-2023 take 1 capsule by mouth once daily Aspirin 81 mg capsule Discontinued 81 mg PO DAILY November 15, 2023 12:00am December 29, 2023 4:23pm 12 hr buPROPion hydrochloride 150 mg extended release oral tablet (7 sources) Aminoketone Start: 10-21-2020 End: 10-30-2023 take 1 tablet by mouth twice daily buPROPion SR (Wellbutrin SR) 150 mg 12 hr tablet Take 1 tablet (150 mg) by mouth 2 times a day. 10/21/2020 10/30/2023 Discontinued (Therapy completed) Start: 10-21-2020 take 1 tablet by alysa th twice daily buPROPion HCl ER (SR) 100 MG Oral Tablet Extended Release 12 Hour TAKE 1 TABLET BY MOUTH TWO TIMES A DAY Quantity: 180 Refills: 1 Ordered: 07-Apr-2021 Hanh Madrigal DO Start : 21-Oct-2020 Active take 1 tablet by alysa th once daily buPROPion XL (WELLBUTRIN XL) 300 mg 24 hr tablet Take 300 mg by mouth once daily. 0 Active Comment on above: Take 300 mg by mouth once daily. cholecalciferol 0.125 mg oral tablet (2 sources) Vitamin D End: 10-30-2023 cholecalciferol (Vitamin D3) 5,000 Units tablet Take 40 tablets (5,000 mcg) by mouth once daily. 10/30/2023 Discontinued (Therapy completed) cholestyramine resin 4000 mg powder for oral suspension (8 sources) Bile Acid Sequestrant Start: 10-10-2024 Cholestyramine (With Sugar) 4 gram powder Active NMA PO October 10, 2024 12:00am Start: 06-03-2024 End: 09-02-2025 cholestyramine (QUESTRAN) 4 gram powder Take 0.5 (one-half) Scoopful (2 g total) by mouth 2 (two) times a day . 09/02/2024 09/02/2025 Active docosahexaenoic acid 200 mg oral capsule (11 sources) Start: 04-28-2023 End: 10-30-2023 take 1 capsule by mouth once daily Docosahexaenoic Acid ( Dha) 200 mg capsule Active 200 mg PO DAILY October 30, 2023 3:42pm hydroxocobalamin 1 mg/ml injectable solution (5 sources) Antidote Start: 02-27-2024 hydroxocobalam in 1,000 mcg/mL injection Indications: B12 deficiency Inject 1 mL (1,000 mcg) into the muscle every 30 (thirty) days. For 3 months 10 mL 02/27/2024 Active Start: 01-24-2023 hydroxocobalam in 1,000 mcg/mL injection Indications: B12 deficiency Inject 1 mL (1,000 mcg) into the shoulder, thigh, or buttocks every 30 (thirty) days. For 3 months 10 mL 01/24/2023 Active levonorgestrel 0.618768 mg/hr intrauterine system (1 source) Progestin, Progestin-containing Intrauterine Device levonorgestreL (MIRENA) 20 mcg/24 hours (6 yrs) 52 mg IUD 1 each by Intrauterine route once . 0 Active Mecobalamin (Vitamin B12) 10,000 mcg recon soln (3 sources) Start: 2024 Mecobalamin (Vitamin B12) 10,000 mcg recon soln Active ug IM October 10, 2024 12:00am ondansetron 4 mg disintegrating oral tablet (15 sources) Serotonin-3 Receptor Antagonist Start: 2024 take 1 tablet by mouth every six hours as needed for nausea and vomiting Ondansetron 4 mg tablet,disintegrati ng Active 4 mg PO EVERY 6 HOURS as needed for nausea and vomiting 90 October 10, 2024 12:00am Start: 08-27-2019 End: 07-05-2020 take 1 tablet by mouth every six hours as needed ondansetron (ZOFRAN) 4 MG tablet Take 1 (one) tablet (4 mg total) by mouth every 6 (six) hours as needed for nausea HOMEPACK . 2 tablet 0 08/27/2019 07/05/2020 Discontinued (Therapy completed) Start: 08-27-2019 End: 07-05-2020 take 1 tablet by mouth every eight hours as needed ondansetron (ZOFRAN) 4 MG tablet Take 1 (one) tablet (4 mg total) by mouth every 8 (eight) hours as needed for nausea . 15 tablet 0 08/27/2019 07/05/2020 Discontinued (Therapy completed) Start: 08-27-2019 End: 08-27-2019 ondansetron (ZOFRAN) injecti on 4 mg take 1 tablet by alysa th every eight hours as needed ondansetron 4 MG Tab tablet Take 4 mg by mouth every 8 hours as needed for Nausea. 0 Active Pediatric Multivitamin No.49 (Flintstones Gummies) 1 EACH Tab.Chew (2 sources) Start: 07-01-2015 take 1 tablet by mouth once daily Pediatric Multivitamin No.49 (Flintstones Gummies) 1 EACH Tab.Chew Active 1 EACH PO DAILY July 01, 2015 8:29pm Start: 07-01-2015 take 1 tablet by alysa th once daily Pediatric Multivitamin No.49 (Flintstones Gummies) 1 EACH Tab.Chew Active 1 EACH PO DAILY July 01, 2015 12:00am tiZANidine 4 mg oral tablet (2 sources) Central alpha-2 Adrenergic Agonist Start: 01-23-2023 End: 10-30-2023 take 1 tablet by mouth every six hours for muscle spasms tiZANidine (Zanaflex) 4 mg tablet Indications: Neck pain Take 1 tablet (4 mg) by mouth every 6 hours if needed for muscle spasms for up to 10 days. 30 tablet 01/23/2023 10/30/2023 Discontinued (Therapy completed) vitamin b12 1 mg/ml injectable solution (18 sources) Vitamin B12 Start: 12-06-2024 End: 12-06-2025 cyanocobalamin (B-12) 1,000 mcg/mL injection Indications: B12 deficiency Inject 1 mL (1,000 mcg total) into the shoulder, thigh, or buttocks every 30 (thirty) days Start: 12/06/24. 1 mL 11 12/06/2024 12/06/2025 Active Start: 10-16-2024 End: 10-11-2024 cyanocobalamin (B-12) 1,000 mcg/mL injection Indications: B12 deficiency Inject 1 mL (1,000 mcg total) into the shoulder, thigh, or buttocks once a week for 4 doses Start: 10/16/24. 4 mL 10/16/2024 10/11/2024 Discontinued Start: 10-16-2024 End: 11-07-2024 cyanocobalamin (B-12) 1,000 mcg/mL injection Indications: B12 deficiency Inject 1 mL (1,000 mcg total) into the shoulder, thigh, or buttocks once a week for 4 doses Start: 10/16/24. 4 mL 10/16/2024 11/07/2024 Active Start: 10-07-2024 End: 10-11-2024 cyanocobalamin (B-12) 1,000 mcg/mL injection Indications: B12 deficiency Inject 1 mL (1,000 mcg total) into the shoulder, thigh, or buttocks daily for 3 doses . 3 mL 10/07/2024 10/11/2024 Discontinued Start: 02-29-2024 End: 06-03-2024 cyanocobalamin (Vitamin B-12 ) 1,000 mcg/mL injection Indications: B12 deficiency Inject 1 mL (1,000 mcg) into the muscle every 30 (thirty) days. 10 mL 02/29/2024 06/03/2024 Discontinued (Other) Start: 10-30-2023 End: 12-29-2023 inject 1000 ug by intramuscular injection every month Cyanocobalamin (Vitamin B-12) 1,000 mcg/mL solution Discontinued 1000 ug IM EVERY MONTH October 30, 2023 12:00am December 29, 2023 4:23pm Start: 10-30-2023 inject 1000 ug by in tramuscular injection every month Cyanocobalamin (Vitamin B-12) Active 1000 MCG IM EVERY MONTH October 30, 2023 12:00am Start: 02-23-2023 cyanocobalamin 1,000 mcg/mL once every month. 0 02/23/2023 Active Start: 02-07-2022 End: 06-03-2024 cyanocobalamin, vitamin B-12 , 1,000 mcg tablet, sublingual Place under the tongue. 02/07/2022 06/03/2024 Discontinued (Other) Comment on above: once every month. Completed/Discontinued Medications Medication Drug Class(es) Dates Sig (Normalized) Sig (Original) acetaminophen 325 mg oral tablet (2 sources) Start: 07-02-2020 End: 07-02-2020 acetaminophen (TYLENOL) tablet 975 mg Start: 08-27-2019 End: 08-27-2019 acetaminophen (TYLENOL) tabl et 975 mg acetaminophen 325 mg / HYDROcodone bitartrate 5 mg oral tablet (9 sources) Opioid Agonist Start: 08-28-2019 End: 08-28-2019 take 1 tablet by mouth every six hours as needed HYDROcodone-acetaminophen (NORCO) 5-325 mg per tablet 1 tablet Start: 08-27-2019 End: 08-30-2019 take 1 tablet by mouth every six hours as needed for pain, then take 4 tablets by mouth as needed for pain HYDROcodone-acetaminophen (NORCO) 5-325 mg per tablet Indications: Acute cholecystitis , Post-op pain Take 1 (one) tablet by mouth every 6 (six) hours as needed for pain (Days supply per fill: 4) . 10 tablet 0 08/27/2019 08/30/2019 Active Start: 08-27-2019 End: 07-05-2020 take 1 tablet by mouth every four hours as needed for pain, then take 1 tablet by mouth as needed for pain HYDROcodone-acetaminophen (XODOL) 5-300 mg per tablet Indications: Gallbladder colic Take 1 (one) tablet by mouth every 4 (four) hours as needed for pain (Days supply per fill: 1) Homepack . 4 tablet 0 08/27/2019 07/05/2020 Discontinued (Error) acyclovir 400 mg oral tablet (9 sources) Herpesvirus Nucleoside Analog DNA Polymerase Inhibitor, Herpes Simplex Virus Nucleoside Analog DNA Polymerase Inhibitor, Herpes Zoster Virus Nucleoside Analog DNA Polymerase Inhibitor Start: 07-07-2019 End: 07-08-2019 take 1 tablet by mouth twice daily Acyclovir 400 MG tablet Discontinued 1 {tbl} PO TWICE A DAY July 07, 2019 1:00am July 08, 2019 6:17am calcium chloride 0.0014 meq/ml / potassium chloride 0.004 meq/ml / sodium chloride 0.103 meq/ml / sodium lactate 0.028 meq/ml injectable solution (2 sources) Start: 08-27-2019 End: 08-28-2019 take 100 mL intravenous route every hour 100 mL/hr, Intravenous, Continuous, Starting Mon08/27/19 at 1645, PACU (only) Start: 08-27-2019 End: 08-27-2019 lactated Ringers infusion cefoTEtan 2000 mg injection (1 source) Cephalosporin Antibacterial Start: 08-27-2019 End: 08-28-2019 take 2000 mg intravenous route every twelve hours 2,000 mg, Intravenous, at 100 mL/hr, Every 12 hours, First dose on Mon08/27/19 at 1300 Indication: Acute cholecystitis 1 ml diphenhydrAMINE hydrochloride 50 mg/ml cartridge (1 source) Histamine-1 Receptor Antagonist Start: 02-11-2019 End: 02-11-2019 diphenhydrAMINE (BENADRYL) injection 25 mg docusate sodium 100 mg oral capsule (9 sources) Start: 07-24-2015 End: 04-28-2023 take 1 capsule by mouth twice daily Docusate Sodium (Dok) 100 MG capsule Discontinued 100 mg PO TWICE A DAY July 24, 2015 1:00am April 28, 2023 9:54am 2 ml famotidine 10 mg/ml injection (3 sources) Histamine-2 Receptor Antagonist Start: 08-27-2019 End: 08-28-2019 20 mg, Intravenous, 2 times daily, First dose on 08/27/19 at 1155 [] Indication: Stress Ulcer Prophylaxis As eptically dilute dose of famotidine injection with 0.9% NaCl to a total volume of either 5 ml or 10 ml and inject over 2 minutes. Start: 02-11-2019 End: 02-11-2019 faMOTIdine (PEPCID) injectio n 20 mg ferrous sulfate 325 mg oral tablet (9 sources) Start: 07-09-2019 End: 04-28-2023 take 1 tablet by mouth once daily Ferrous Sulfate 325 MG tablet Discontinued 325 mg PO DAILY July 09, 2019 1:00am April 28, 2023 9:54am 1 ml HYDROmorphone hydrochloride 1 mg/ml injection (2 sources) Opioid Agonist Start: 08-27-2019 End: 08-27-2019 0.5 mg, Intravenous, Every 5 min PRN, Pain, Starting 08/27/19 at 1557, For 6 doses, PACU (only) [] Give if fentanyl not effective or not ordered. [] Do not give more than 3 mg total. Start: 08-27-2019 End: 08-28-2019 take 0.25-0.5 mg intravenous route every three hours as needed 0.25-0.5 mg, Intravenous, Every 3 hours PRN (may repeat), moderate to severe pain, Starting 08/27/19 at 1153 [] Initiate with 0.25 mg IV every 3 hours prn moderate to severe pain. [] For unrelieved pain, may repeat 0.25 mg IV dose within 30 minutes of initial dose. [] If pain is RELIEVED after repeat dose, change to 0.5 mg IV every 3 hours prn moderate to severe pain. [] If pain is UNrelieved after repeat dose, or patient requires dose reduction, call physician. [] May use IV for breakthrough pain or if unable to tolerate oral route. hydrOXYzine pamoate 25 mg oral capsule (5 sources) Antihistamine Start: 06-28-2023 End: 12-29-2023 take 1 capsule by mouth three times daily as needed for headache Hydroxyzine Pamoate (Vistaril) 25 mg capsule Discontinued 25 mg PO THREE TIMES A DAY as needed for headache June 28, 2023 1:00am December 29, 2023 4:23pm On Hold: Pt has been DC'd ibuprofen 600 mg oral tablet (18 sources) Nonsteroidal Anti-inflammatory Drug Start: 07-08-2019 End: 04-28-2023 take 1 tablet by mouth three times daily as needed for pain Ibuprofen 600 MG tablet Discontinued 600 mg PO THREE TIMES A DAY as needed for Pain Or Fever July 08, 2019 6:17am April 28, 2023 9:54am Start: 07-24-2015 End: 07-07-2019 take 1 tablet by mouth three times daily as needed for pain Ibuprofen (Motrin) 800 MG tablet Discontinued 800 mg PO 3 TIMES DAILY NEEDED as needed for Pain July 24, 2015 1:00am July 07, 2019 2:14pm INTRAUTERINE DEVICE, IUD, INTRAUTERINE (1 source) INTRAUTERINE DEV ICE, IUD, INTRAUTERINE by INTRAUTERINE route. 0 Active Comment on above: by INTRAUTERINE rout e. 1 ml ketorolac tromethamine 30 mg/ml injection (1 source) Nonsteroidal Anti-inflammatory Drug, Cyclooxygenase Inhibitor Start: End: ketorolac (TORADOL) injection 15 mg Magnesium (3 sources) Start: End: Magnesium tablet Discontinued 2 {tbl} PO DAILY November 15, 2023 12:00am December 29, 2023 4:23pm 8 ml methotrexate 25 mg/ml injection (1 source) Folate Analog Metabolic Inhibitor Start: End: methotrexate injection 78 mg 2 ml metoclopramide 5 mg/ml prefilled syringe (1 source) Dopamine-2 Receptor Antagonist Start: End: metoclopramide (REGLAN) injection 10 mg NIFEdipine 30 mg osmotic 24 hr extended release oral tablet (12 sources) Dihydropyridine Calcium Channel Natalia Start: 024 End: 024 take 1 tablet by mouth once daily Nifedipine (Procardia Xl) 30 mg tablet extended release 24hr Discontinued 30 mg PO DAILY December 29, 2023 12:00am December 29, 2023 5:20pm Start: 07-09-2019 End: 04-28-2023 take 1 tablet by mouth once daily Nifedipine 30 MG tablet extended release 24hr Discontinued 30 mg PO DAILY July 09, 2019 1:00am April 28, 2023 9:54am norethindrone 0.35 mg oral tablet (5 sources) Start: 12-29-2023 End: 10-10-2024 take 1 tablet by mouth once daily Norethindrone (Contraceptive) (Pilar) 0.35 mg tablet Discontinued 0.35 mg PO DAILY December 29, 2023 12:00am October 10, 2024 8:22am ondansetron (ZOFRAN-ODT) disintegrating tablet 4 mg (1 source) Start: 08-27-2019 End: 08-28-2019 take 1 tablet by mouth every six hours as needed ondansetron (ZOFRAN-ODT) disintegrating tablet 4 mg pantoprazole 40 mg injection (11 sources) Proton Pump Inhibitor Start: 08-27-2019 End: 08-27-2019 pantoprazole (PROTONIX) injection 40 mg Start: 07-18-2015 End: 07-07-2019 take 1 tablet by mouth once daily Pantoprazole 40 MG tablet Discontinued 40 mg PO DAILY July 18, 2015 1:00am July 07, 2019 2:14pm Pediatric Multivitamin No.49 (Flintstones Gummies) 1 EACH tablet,chewable (7 sources) Start: 07-01-2015 End: 04-28-2023 take 1 tablet by mouth once daily Pediatric Multivitamin No.49 (Flintstones Gummies) 1 EACH tablet,chewable Discontinued 1 NMA PO DAILY July 01, 2015 1:00am April 28, 2023 9:54am Start: 07-01-2015 End: 04-28-2023 take 1 tablet by mouth once daily Pediatric Multivitamin No.49 (Flintstones Gummies) 1 EACH tablet,chewable Discontinued 1 EACH PO DAILY July 01, 2015 12:00am April 28, 2023 8:54am Start: 07-01-2015 End: 04-28-2023 take 1 tablet by mouth once daily Pediatric Multivitamin No.49 (Flintstones Gummies) 1 EACH tablet,chewable Discontinued 1 EACH PO DAILY July 01, 2015 1:00am April 28, 2023 9:54am promethazine hydrochloride 12.5 mg oral tablet (5 sources) Phenothiazine Start: 06-19-2023 End: 11-16-2023 take 1 tablet by mouth every six hours as needed for headache Promethazine 12.5 mg tablet Discontinued 12.5 mg PO EVERY 6 HOURS as needed for headache 60 June 19, 2023 1:00am November 16, 2023 9:28pm On Hold: Pt has been DC'd sertraline 50 mg oral tablet (20 sources) Serotonin Reuptake Inhibitor Start: 07-09-2019 End: 04-28-2023 take 2 tablets by mouth once daily Sertraline 50 MG tablet Discontinued 100 mg PO DAILY July 09, 2019 1:00am April 28, 2023 9:54am Start: 07-09-2019 End: 04-28-2023 take 100 mg by mouth once daily Sertraline Discontinue d 100 MG PO DAILY July 09, 2019 1:00am April 28, 2023 9:54am Start: 06-23-2019 End: 04-28-2023 take 1 tablet by mouth once daily Sertraline 50 MG tablet Discontinued 50 mg PO DAILY June 23, 2019 1:00am April 28, 2023 9:54am take 1 tablet by alysa th once daily sertraline (ZOLOFT) 100 MG tablet Take 100 mg by mouth daily . 0 Active take 1 tablet by alysa th once daily sertraline 50 MG Tab tablet Take 50 mg by mouth daily. 0 Active 1000 ml sodium chloride 9 mg /ml injection (5 sources) Start: 07-02-2020 End: 07-02-2020 sodium chloride 0.9% (NS) mara misha 1,000 mL Start: 07-02-2020 End: 07-02-2020 sodium chloride (PF) (NS) fl ush 5 mL Start: 08-27-2019 End: 08-28-2019 take 75 mL intravenous route every hour 75 mL/hr, Intravenous, Continuous, Starting Mon08/27/19 at 1155 Start: 08-26-2019 End: 08-27-2019 sodium chloride (PF) (NS) fl ush 5 mL Start: 02-11-2019 End: 02-11-2019 sodium chloride 0.9% IV solu tion 1,000 mL zolpidem tartrate 5 mg oral tablet (9 sources) gamma-Aminobutyric Acid-ergic Agonist Start: 07-03-2019 End: 07-07-2019 take 1 tablet by mouth at bedtime as needed for sleep Zolpidem 5 MG tablet Discontinued 5 mg PO AT BEDTIME NEEDED as needed for Sleep 4 July 03, 2019 1:00am July 06, 2019 1:00am July 07, 2019 1:08am Problems Active Problems Problem Classification Problem Date Documented Da te Episodic/Chronic Abdominal pain (3 sources) Right upper quadrant pain; Translations: [Lower abdominal pain, unspecified] Onset: 4 Episodic Administrative/social admission (2 sources) Patient encounter status; Translations: [Persons encountering health services in other specified circumstances] 03-03-2023 Episodic Anxiety disorders (11 sources) Anxiety; Translations: [Anxiety state, unspecified] Onset: 4 10-30-2023 Chronic Biliary tract disease (1 source) Biliary sludge; Translations: [Gallbladder sludge] Chronic Calculus of urinary tract (4 sources) History of calculus of kidney; Translations: [Personal history of urinary calculi] Episodic Ectopic (11 sources) Ovarian ; Translations: [Ectopic ] Onset: 5 10-10-2024 Episodic Comment on above: 06/2020 Fluid and electrolyte disorders (1 source) Mild dehydration; Translations: [Mild dehydration] Episodic Hypertension complicating ; childbirth and the puerperium (14 sources) Pre-eclampsia; Translations: [Unspecified pre-eclampsia, unspecified trimester] Onset: 4 07-09-2019 Episodic Comment on above: advised to start 81m g ASA dailyElevated ALT with NOB labs. redraw in 4 weeks Immunizations and screening for infectious disease (1 source) Contact with or exposure to other viral diseases; Translations: [Exposure to COVID-19 virus] Episodic Malaise and fatigue (1 source) Fatigue; Translations: [Other malaise and fatigue] Episodic Nausea and vomiting (1 source) Nausea; Translations: [Nausea] Episodic Nutritional deficiencies (15 sources) Cobalamin deficiency; Translations: [Other B-complex deficiencies] Onset: 4 05-01-2023 Episodic Other aftercare (1 source) Surgical follow-up; Translations: [Encounter for surgical aftercare following surgery of digestive system] Episodic Other and unspecified benign neoplasm (4 sources) Lipoma (clinical); Translations: [Lipoma, unspecified site] Episodic Other complications of ; puerperium affecting management of mother (3 sources) Retained placenta; Translations: [Retained placenta without hemorrhage] 11-20-2023 Episodic Comment on above: manually removed by SM. Other complications of ; puerperium affecting management of mother (9 sources) Retained products of conception; Translations: [Retained portions of placenta and membranes, without hemorrhage] 10-10-2024 Episodic Comment on above: with 2nd , without hemorrhage, resolved with curettage Other complications of ; puerperium affecting management of mother (1 source) Retained portions of placenta and membranes, without hemorrhage; Translations: [Retained portions of placenta and membranes, without hemorrhage] Onset: 5 Episodic Other complications of (1 source) Vomiting of ; Translations: [Nausea and vomiting in prior to 22 weeks gestation] Episodic Other complications of (16 sources) High risk ; Translations: [Supervision of high risk , unspecified, first trimester] 04-28-2023 Episodic Comment on above: [id number], girl, Brist Landon lópez. Boyfriend-Mendoza(his first) PRR,, ANNA 05/28 PC Landon Brennan (CF carrier), Kimmie Mendoza Other complications of (7 sources) History of pre-eclampsia; Translations: [Supervision of with other poor reproductive or obstetric history, unspecified trimester] 04-28-2023 Episodic Comment on above: Pre-e labs at NOB or dered/nlstart baby asahas new FOB Other complications of (13 sources) Supervision of with other poor reproductive or obstetric history, unspecified trimester; Translations: [ with other poor obstetric history] 04-28-2023 Episodic Other complications of (13 sources) Supervision of high risk , unspecified, first trimester; Translations: [Supervision of unspecified high-risk ] 04-28-2023 Episodic Other complications of (5 sources) Disease caused by 2019-nCoV; Translations: [Other viral diseases complicating , third trimester] 09-20-2023 Episodic Comment on above: already taking 81mg asa. Other complications of (4 sources) Excessive growth affecting management of mother; Translations: [Maternal care for excessive growth, unspecified trimester, not applicable or unspecified] 11-05-2023 Episodic Comment on above: US at 34wk: EFW 70%, AC 80% Other complications of (3 sources) Other viral diseases complicating , third trimester; Translations: [Other viral diseases in the mother, antepartum condition or complication] 10-04-2023 Episodic Other complications of (1 source) Maternal care for excessive growth, unspecified trimester, not applicable or unspecified; Translations: [Excessive growth, affecting management of mother, unspecified as to episode of care or not applicable] 10-30-2023 Episodic Other complications of (1 source) Supervision of high risk , unspecified, unspecified trimester; Translations: [Supervision of high risk , unspecified, unspecified trimester] Onset: 5 Episodic Other complications of (1 source) Vomiting of , unspecified; Translations: [Vomiting of , unspecified] Onset: 5 Episodic Other female genital disorders (7 sources) History of abnormal cervical Papanicolaou smear ; Translations: [Personal history of other diseases of the female genital tract] 04-28-2023 Episodic Comment on above: LGSIL in 2017, and h as new partner now, rpt pap post Other female genital disorders (7 sources) Personal history of other diseases of the female genital tract; Translations: [Personal history of other genital system and obstetric disorders] 04-28-2023 Episodic Other gastrointestinal disorders (6 sources) Non-infective diarrhea; Translations: [Other intestinal malabsorption] Onset: 4 06-03-2024 Chronic Other gastrointestinal disorders (2 sources) Other intestinal malabsorption; Translations: [Other intestinal malabsorption] Onset: 4 Chronic Other gastrointestinal disorders (6 sources) History of gastroesophageal reflux disease; Translations: [Personal history of other diseases of digestive system] Onset: 5 09-26-2024 Episodic Other infections; including parasitic (9 sources) History of sexually transmitted disease; Translations: [Personal history of other infectious and parasitic diseases] 10-25-2024 Episodic Comment on above: valtrex at 36 weeks, last outbreak 2019 Other infections; including parasitic (1 source) Personal history of other infectious and parasitic diseases; Translations: [Personal history of other infectious and parasitic diseases] Onset: 5 Episodic Other liver diseases (6 sources) Elevated liver enzymes level; Translations: [Abnormal levels of other serum enzymes] 11-01-2024 Episodic Comment on above: redraw end of October Other liver diseases (1 source) Abnormal levels of other serum enzymes; Translations: [Abnormal levels of other serum enzymes] Onset: Episodic Other nervous system disorders (1 source) Postoperative pain ; Translations: [Post-op pain] Episodic Other nutritional; endocrine; and metabolic disorders (2 sources) Other lipoprotein metabolism disorders; 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 girl Kimmie. NIPT w gender- elect s, carrier- declines Carrier testing nega tive. NIPT low risk. DOC only delivery NIPT w gender- low r isk, male, carrier- declines Other screening for suspected conditions (not mental disorders or infectious disease) (20 sources) Encounter for screening for lipoid disorders; Translations: [Decreased vitamin B12 level] Onset: Episodic Comment on above: vitamin B12 elevated -stop injections. redraw end of October LGSIL 09/23/16. all o thers nl. Pt's Mom total hysterectomy at 36. Pap 10/2024 nl. redraw nl Other upper respiratory infections (1 source) Acute upper respiratory infection; Translations: [Acute URI] Episodic Residual codes; unclassified (9 sources) Gestation period, 35 weeks; Translations: [35 weeks gestation of ] 07-07-2019 Episodic Residual codes; unclassified (2 sources) Gestation period, 37 weeks; Translations: [37 weeks gestation of ] 07-09-2019 Episodic Residual codes; unclassified (1 source) 13 weeks gestation of ; Translations: [13 weeks gestation of ] Onset: Episodic Screening and history of mental health and substance abuse codes (4 sources) H/O: anxiety state; Translations: [Personal history of other mental disorders] Episodic Urinary tract infections (4 sources) Urinary tract infectious disease; Translations: [Urinary tract infection, site not specified] Episodic Viral infection (3 sources) Genital herpes simplex; Translations: [Herpesviral infection of urogenital system, unspecified] 11-23-2023 Chronic Comment on above: start valtrex at 36 weeks Past or Other Problems Problem Classification Problem Date Documented Da te Episodic/Chronic Biliary tract disease (9 sources) Biliary calculus; Translations: [Acute cholecystitis] Onset: 08-27-2019 08-27-2019 Episodic Mood disorders (2 sources) Mood disorders Onset: 09-26-2024 09-26-2024 Other gastrointestinal disorders (5 sources) Functional diarrhea; Translations: [Functional diarrhea] Onset: 06-03-2024 06-03-2024 Episodic Other gastrointestinal disorders (2 sources) Functional diarrhea; Translations: [Functional diarrhea] Onset: 06-03-2024 Episodic Unclassified (5 sources) Onset: 01-23-2023 01-23-2023 Results Test Name Value Interpretation Reference Range Facility Anion gap in Serum or Plasma Ordered By: Mariely Arriaga on 11-22-2024 Anion gap [Moles/Vol] 12 mmol/L 5-15 [facility] BUN/creatinine ratioOrdered By: Mariely Arriaga on 11-22-2024 Urea nitrogen/Creatinine [Mass ratio] 9.5 mg/mg Low 10-20 [facility] Bilirubin, totalOrdered By: Mariely Arriaga on 11-22-2024 Bilirubin [Mass/Vol] 0.34 mg/dL 0.00-1.30 [facility] Carbon dioxide, total [Moles /volume] in Central venous bloodOrdered By: Mariely Arriaga on 11-22-2024 CO2 [Moles/Vol] 22.8 mmol/L 21.0-32.0 [facility] Chloride assayOrdered By: Kristian jacksondinora Corina on 11-22-2024 Chloride [Moles/Vol] 102 mmol/L 98-108 [facility] Comprehensive Metabolic Prof ilon 11-22-2024 Albumin [Mass/Vol] 4.1 g/dL Normal 3.5-5.0 [facility] Comment on above: Performed By: #### L 503.0106, L500.4050 #### [facility] [address] [place], [address] Albumin/Globulin [Mass ratio] 1.4 {ratio} Normal 0.9-2.4 [facility] Comment on above: Performed By: #### L 503.0106, L500.4050 #### [facility] [address] [place], [address] ALK PHOS 67 U/L Normal 35-104 [facility] Comment on above: Performed By: #### L 503.0106, L500.4050 #### [facility] [address] [place], [address] ALT [Catalytic activity/Vol] 36 U/L High <=34 [facility] Comment on above: Performed By: #### L 503.0106, L500.4050 #### [facility] [address] [place], [address] AST [Catalytic activity/Vol] 22 U/L Normal <=31 [facility] Comment on above: Performed By: #### L 503.0106, L500.4050 #### [facility] [address] [place], [address] Bilirubin [Mass/Vol] 0.34 mg/dL Normal 0.00-1.30 [facility] Comment on above: Performed By: #### L 503.0106, [id number] #### [facility] [address] [place], [address] BUN/CRE 9.5 RATIO Low 10-20 [facility] Comment on above: Performed By: #### L 503.0106, [id number] #### [facility] [address] [place], [address] Calcium [Mass/Vol] 9.5 mg/dL Normal 7.6-11.0 [facility] Comment on above: Performed By: #### L 503.0106, [id number] #### [facility] [address] [place], [address] Chloride [Moles/Vol] 102 mmol/L Normal 98-108 [facility] Comment on above: Performed By: #### L 503.0106, [id number] #### [facility] [address] [place], [address] CO2 [Moles/Vol] 22.8 mmol/L Normal 21.0-32.0 [facility] Comment on above: Performed By: #### L 503.0106, [id number] #### [facility] [address] [place], [address] Creatinine [Mass/Vol] 0.66 mg/dL Low 0.70-1.20 [facility] Comment on above: Performed By: #### L 503.0106, [id number] #### [facility] [address] [place], [address] GAP 12 Normal 5-15 [facility] Comment on above: Performed By: #### L 503.0106, L500.4050 #### [facility] [address] [place], [address] GFR/1.73 sq M.predicted among non-blacks MDRD (S/P/Bld) [Vol rate/Area] 122 mL/min/{1.73_m2} Normal >60 [facility] Comment on above: Result Comment: mL/m in/1.73m2 CKD-EPI Creatinine Equation (2020) Performed By: #### L 503.0106, L500.4050 #### [facility] [address] [place], [address] Globulin (S) [Mass/Vol] 2.9 g/dL Normal 2.2-4.2 [facility] Comment on above: Performed By: #### L 503.0106, [id number] #### [facility] [address] [place], [address] Glucose [Mass/Vol] 79 mg/dL Normal 70-99 [facility] Comment on above: Performed By: #### L 503.0106, L500.4050 #### [facility] [address] [place], [address] Potassium [Moles/Vol] 3.8 mmol/L Normal 3.3-5.1 [facility] Comment on above: Performed By: #### L 503.0106, L500.4050 #### [facility] [address] [place], [address] Sodium [Moles/Vol] 137 mmol/L Normal 133-145 [facility] Comment on above: Performed By: #### L 503.0106, [id number] #### [facility] [address] [place], [address] T PROT 7.0 g/dL Normal 5.9-8.4 [facility] Comment on above: Performed By: #### L 503.0106, L500.4050 #### [facility] [address] [place], [address] Urea nitrogen [Mass/Vol] 6 mg/dL Normal 4-19 [facility] Comment on above: Performed By: #### L 503.0106, L500.4050 #### [facility] [address] [place], [address] Glomerular filtration rate ( GFR) estimation/1.73 sq m using serum, plasma, or whole bOrdered By: Mariely Arriaga on 11-22-2024 GFR/1.73 sq M.predicted among non-blacks MDRD (S/P/Bld) [Vol rate/Area] 122 mL/min/{1.73_m2} >60 [facility] Comment on above: mL/min/1.73m2 CKD-EP I Creatinine Equation (2020) Laboratory - Chemistry and C hemistry - challengeOrdered By: Mariely Arriaga on 11-22-2024 AST [Catalytic activity/Vol] 22 U/L <32 [facility] Glucose Ql (U) Negative [facility] - UrinalysisOrder ed By: Mariely Arriaga on 11-22-2024 Protein Ql (U) Negative [facility] Shower Enclosure Installer Office Visit Reporton 11-22-2024 Shower Enclosure Installer Office Visit Report [facility], [address] [place] [address] OFFICE VISIT Date of Service: 11/22/24 MR#: [id number] Acct: [id number] Name: HANH RM Rep #: [id number] : 1995 Provider: Dr. Mariely Sheets DO Age/Sex: 29/F Location[place] [facility] [place] Status: Signed Intake Vital Signs 12/29/23 16:16 10/25/24 13:03 11/22/24 13:34 Height 5 ft 3 in 5 ft 3 in 5 ft 3 in Weight: 152 lb 6 oz BMI 26.9 BP 119/79 Intake Visit Reasons: 13WK OB Chief Complaint: 13 Week OB 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: No Is patient in pain?: No Allergies nitrofurantoin (From Macrobid) Allergy (Unknown, Verified 11/22/24 13:34) Hives nickel Allergy (Verified 11/22/24 13:34) Rash Sulfa (Sulfonamide Antibiotics) Allergy (Verified 11/22/24 13:34) Hives Medications ???Medication ???Instructions ???Recorded ???Confirmed ???Type docosahexaenoic acid 200 mg 200 mg PO DAILY 10/30/23 11/22/24 History capsule ( DHA) aspirin 81 mg tablet,delayed 81 mg PO QDAY 10/10/24 11/22/24 Hi story release cholestyramine (with sugar) 4 gram ea PO 10/10/24 11/22/24 History oral powder mecobalamin (vitamin B12) 10,000 mcg IM 10/10/24 11/22/24 History mcg solution for injection ondansetron 4 mg disintegrating 4 mg PO Q6H PRN nausea and 5 11/22/24 Rx tablet vomiting #90 tabs Last Menstrual Period: 08/21/24 Zika: Zika virus screening: Negative : No PFSH PFSH Medical History Preeclampsia, severe Large for dates affecting management of mother (spontaneous vaginal delivery) Retained placenta Abnormal Pap smear of cervix History of pre-term labor Retained placenta or membranes Headache Ectopic Pre-eclampsia Herpes genitalis Migraines Anemia affecting Anxiety Surgical History [place] teeth removed Hx of cholecystectomy Family History Father Squamous cell carcinoma Mother Hyperlipidemia Brother Seizures Grandmother Breast cancer Social History adopted: No household members: family and children housing: house number of children: 3 current occupational status: unemployed current occupation: [employer] pets and animals: Yes pets and animals: dog(s) history of recent travel: No Smoking Status: Never smoker alcohol intake: never substance use type: does not use caffeine: Yes what type of physical activity do you participate in: none sandra/synagogue: Buddhist seatbelt use: always do you feel safe at home: Yes additional social history: -[employer] 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 Date Name GA/Weeks Outcome Route Bth Weight Infant Gen Labor Lgth Anesthesia Del Locatn Provider FOB 07/24/15 Anu 39 live - full term 6lbs 9oz Female epidural WC H Dr. Edna Brambila 07/08/19 Landon 37 live - full term 8lbs 6oz Male [facility] Dr. Edna Machuca 11/17/23 Kimmie 36 live - 6lbs 15oz Female [facility] [place] Delivery Date: 07/24/15 Last Updated by: Lissa Ngo No issues during or delivery Delivery Date: 07/08/19 Last Updated by: Lissa Ngo Went into pre-term labor at 36 weeks but was able to stop labor. Developed pre-eclampsia and was induced at 37 weeks. Retained placenta, curettage immediately after delivery Delivery Date: 11/17/23 Last Updated by: Lissa Ngo COVID, LGA, severe pre-e HPI 13WK OB Details: HANH RM is a 29 year old who presents for routine OB visit. OB Visit ANNA Calculator Estimated Delivery Date Method Current WG Current Estimate 05/28/25 LMP (Certain) 13w 2d Expected Delivery Route/Plan Labor Preferences- CB/BF classes: [] labor support person: [] labor intervention preferences: [] pain management options preferred: [] cut cord/dad catch: [] : [] PP control planned: [] discussed possible routes of delivery and associated risks: [] special requests: [] Specific Issue/Plans Covid status: [] Flu vaccine: [] Tdap vaccine: [] Rhogam: [] LARC form signed: [] Problem list reviewed and updated with the most current plan of care details and appropriate orders placed. Relevant counseling for the gestational age provided. Continue routine care and follow up unless otherwise noted in visit notes/problem list details Initial (more content not included)... Normal [facility] Potassium measurement (mass/ volume)Ordered By: Mariely Arriaga on 11-22-2024 Potassium (Unsp spec) [Mass/Vol] 3.8 mmol/L 3.3-5.1 [facility] Serum creatinine measurement (mass/volume)Ordered By: Mariely Arriaga on 11-22-2024 Creatinine [Mass/Vol] 0.66 mg/dL Low 0.70-1.20 [facility] Serum globulin measurementOr dered By: Mariely Arriaga on 11-22-2024 Globulin (S) [Mass/Vol] 2.9 g/dL 2.2-4.2 [facility] Serum glucose measurement (m ass/volume)Ordered By: Mariely Arriaga on 11-22-2024 Glucose [Mass/Vol] 79 mg/dL 70-99 [facility] Serum or plasma alanine garrett otransferase (ALT) measurementOrdered By: Mariely Arriaga on 11-22-2024 ALT [Catalytic activity/Vol] 36 U/L High <35 [facility] Serum or plasma albumin jennyfer urement (mass/volume)Ordered By: Mariely Arriaga on 11-22-2024 Albumin [Mass/Vol] 4.1 g/dL 3.5-5.0 [facility] Serum or plasma albumin/glob ulin mass ratioOrdered By: Mariely Arriaga on 11-22-2024 Albumin/Globulin [Mass ratio] 1.4 {ratio} 0.9-2.4 [facility] Serum or plasma alkaline norma sphatase measurementOrdered By: Mariely Arriaga on 11-22-2024 ALP [Catalytic activity/Vol] 67 U/L 35-104 [facility] Serum or plasma calcium jennyfer urement (mass/volume)Ordered By: Mariely Arriaga on 11-22-2024 Calcium [Mass/Vol] 9.5 mg/dL 7.6-11.0 [facility] Serum or plasma urea nitroge n measurement (mass/volume)Ordered By: Mariely Arriaga on 11-22-2024 Urea nitrogen [Mass/Vol] 6 mg/dL 4-19 [facility] Sodium levelOrdered By: Jocelyne Arriaga on 11-22-2024 Sodium [Moles/Vol] 137 mmol/L 133-145 [facility] Total proteinOrdered By: Ericka Arriaga on 11-22-2024 Protein [Mass/Vol] 7.0 g/dL 5.9-8.4 [facility] Vitamin B12on 11-22-2024 Cobalamin (Vitamin B12) [Mass/Vol] 385 pg/mL Normal 180-914 [facility] Comment on above: Performed By: #### L 503.0106, L500.4050 #### [facility] [place] [address] [place], [address] Vitamin B12 ser/plasOrdered By: Mariely Arriaga on 11-22-2024 Cobalamin (Vitamin B12) [Mass/Vol] 385 pg/mL 180-914 [facility] Absolute lymphocyte countOrd ered By: Mercy Avendano on 11-01-2024 Lymphocytes Auto (Unsp spec) [#/Vol] 1.78 10*3/uL 0.83-4.51 [facility] Absolute neutrophil countOrd ered By: Meryc Avendano on 11-01-2024 Neutrophils (Bld) [#/Vol] 3.4 10*3/uL 2.0-7.7 [facility] Anion gap in Serum or Plasma Ordered By: Mercy Avendano on 11-01-2024 Anion gap [Moles/Vol] 12 mmol/L 5-15 [facility] Automated lymphocyte count a s percentage of total leukocytesOrdered By: Mercy Avendano on 11-01-2024 Lymphocytes/100 WBC Auto (Unsp spec) 31.7 % 19-41 [facility] BUN/creatinine ratioOrdered By: Mercy Avendano on 11-01-2024 Urea nitrogen/Creatinine [Mass ratio] 14.9 mg/mg 10-20 [facility] Basophil percentageOrdered B y: Mercy Avendano on 11-01-2024 Basophils/100 WBC (Bld) 0.2 % 0-1 [facility] Bilirubin, totalOrdered By: Mercy Avendano on 11-01-2024 Bilirubin [Mass/Vol] 0.42 mg/dL 0.00-1.30 [facility] Comment on above: Performed By: #### L 500.4050, L900.0098, BTS, L3890.6301, L100.0100, L3890.6102, L503.0106, L509.8002, L3890.6006, L509.4006 #### [facility] [address] [place], [place], [id number] CBC W/Diff, Automatedon Absolute Lymph 1.78 X10 3/uL Normal 0.83-4.51 [facility] Comment on above: Performed By: #### L 500.4050, L900.0098, BTS, L3890.6301, L100.0100, L3890.6102, L503.0106, L509.8002, L3890.6006, L509.4006 #### [facility] [address] [place], [address] Absolute Neut 3.4 X10 3/uL Normal 2.0-7.7 [facility] Comment on above: Performed By: #### L 500.4050, L900.0098, BTS, L3890.6301, L100.0100, L3890.6102, L503.0106, L509.8002, L3890.6006, L509.4006 #### [facility] [address] [facility] [place], [address] Basophils/100 WBC (Bld) 0.2 % Normal 0-1 [facility] Comment on above: Performed By: #### L 500.4050, L900.0098, BTS, L3890.6301, L100.0100, L3890.6102, L503.0106, L509.8002, L3890.6006, L509.4006 #### [facility] [address] [facility] [place], [address] Eosinophils/100 WBC (Bld) 1.4 % Normal 0-5 [facility] Comment on above: Performed By: #### L 500.4050, L900.0098, BTS, L3890.6301, L100.0100, L3890.6102, L503.0106, L509.8002, L3890.6006, L509.4006 #### [facility] [address] [facility] [place], [address] Erythrocyte distribution width (RBC) [Ratio] 12.7 % Normal 11.6-14.6 [facility] Comment on above: Performed By: #### L 500.4050, L900.0098, BTS, L3890.6301, L100.0100, L3890.6102, L503.0106, L509.8002, L3890.6006, L509.4006 #### [facility] [address] [facility] [place], [address] Hematocrit (Bld) [Volume fraction] 40.8 % Normal 37-47 [facility] Comment on above: Performed By: #### L 500.4050, L900.0098, BTS, L3890.6301, L100.0100, L3890.6102, L503.0106, L509.8002, L3890.6006, L509.4006 #### [facility] [address] [facility] [place], [address] Hemoglobin (Bld) [Mass/Vol] 13.8 g/dL Normal 12.0-15.0 [facility] Comment on above: Performed By: #### L 500.4050, L900.0098, BTS, L3890.6301, L100.0100, L3890.6102, L503.0106, L509.8002, L3890.6006, L509.4006 #### [facility] [address] [facility] [place], [address] IG% 0.200 Normal 0.0-0.9 [facility] Comment on above: Result Comment: IG% - Immature Granulocytes (promyelocytes, myelocytes and metamyelocytes) > 1% indicates that a LEFT SHIFT is Present. Performed By: #### L 500.4050, L900.0098, BTS, L3890.6301, L100.0100, L3890.6102, L503.0106, L509.8002, L3890.6006, L509.4006 #### [facility] [address] [place], [address] Lymphocytes/100 WBC (Bld) 31.7 % Normal 19-41 [facility] Comment on above: Performed By: #### L 500.4050, L900.0098, BTS, L3890.6301, L100.0100, L3890.6102, L503.0106, L509.8002, L3890.6006, L509.4006 #### [facility] [address] [facility] [place], [address] MCH (RBC) [Entitic mass] 29.7 pg Normal 27.0-32.0 [facility] Comment on above: Performed By: #### L 500.4050, L900.0098, BTS, L3890.6301, L100.0100, L3890.6102, L503.0106, L509.8002, L3890.6006, L509.4006 #### [facility] [address] [facility] [place], [address] MCHC (RBC) [Mass/Vol] 33.8 g/dL Normal 32-36 [facility] Comment on above: Performed By: #### L 500.4050, L900.0098, BTS, L3890.6301, L100.0100, L3890.6102, L503.0106, L509.8002, L3890.6006, L509.4006 #### [facility] [address] [place], [address] MCV (RBC) [Entitic vol] 87.7 fL Normal 81-99 [facility] Comment on above: Performed By: #### L 500.4050, L900.0098, BTS, L3890.6301, L100.0100, L3890.6102, L503.0106, L509.8002, L3890.6006, L509.4006 #### [facility] [address] [facility] [place], [address] Monocytes/100 WBC (Bld) 5.7 % Normal 0-10 [facility] Comment on above: Performed By: #### L 500.4050, L900.0098, BTS, L3890.6301, L100.0100, L3890.6102, L503.0106, L509.8002, L3890.6006, L509.4006 #### [facility] [address] [place], [address] Neutrophils/100 WBC (Bld) 60.8 % Normal 47-70 [facility] Comment on above: Performed By: #### L 500.4050, L900.0098, BTS, L3890.6301, L100.0100, L3890.6102, L503.0106, L509.8002, L3890.6006, L509.4006 #### [facility] [address] [place], [address] Nucleated RBC (Bld) [#/Vol] 0 10*3/uL Normal 0-5 [facility] Comment on above: Performed By: #### L 500.4050, L900.0098, BTS, L3890.6301, L100.0100, L3890.6102, L503.0106, L509.8002, L3890.6006, L509.4006 #### [facility] [address] [place], [address] Platelet mean volume (Bld) [Entitic vol] 11.6 fL Normal 6.2-12.0 [facility] Comment on above: Performed By: #### L 500.4050, L900.0098, BTS, L3890.6301, L100.0100, L3890.6102, L503.0106, L509.8002, L3890.6006, L509.4006 #### [facility] [address] [facility] [place], [address] Platelets (Bld) [#/Vol] 194 10*3/uL Normal 150-450 [facility] Comment on above: Performed By: #### L 500.4050, L900.0098, BTS, L3890.6301, L100.0100, L3890.6102, L503.0106, L509.8002, L3890.6006, L509.4006 #### [facility] [address] [place], [address] RBC (Bld) [#/Vol] 4.65 10*6/uL Normal 4.2-5.4 [facility] Comment on above: Performed By: #### L 500.4050, L900.0098, BTS, L3890.6301, L100.0100, L3890.6102, L503.0106, L509.8002, L3890.6006, L509.4006 #### [facility] [address] [place], [address] (854) RDW SD 40.7 fl Normal 35.1-43.9 [facility] Comment on above: Performed By: #### L 500.4050, L900.0098, BTS, L3890.6301, L100.0100, L3890.6102, L503.0106, L509.8002, L3890.6006, L509.4006 #### [facility] [address] [place], [place], [id number] (630) WBC (Bld) [#/Vol] 5.6 10*3/uL Normal 4.4-11.0 [facility] Comment on above: Performed By: #### L 500.4050, L900.0098, BTS, L3890.6301, L100.0100, L3890.6102, L503.0106, L509.8002, L3890.6006, L509.4006 #### [facility] [address] [place], [place], [id number] (418) Carbon dioxide, total [Moles /volume] in Central venous bloodOrdered By: Mercy Avendano on 05-02-2025 CO2 [Moles/Vol] 20.6 mmol/L Low 21.0-32.0 [facility] Comment on above: Performed By: #### L 500.4050, L900.0098, BTS, L3890.6301, L100.0100, L3890.6102, L503.0106, L509.8002, L3890.6006, L509.4006 #### [facility] [address] [place], [place], [id number] Chloride assayOrdered By: Hans Avendano on 11-01-2024 Chloride [Moles/Vol] 102 mmol/L 98-108 [facility] Comment on above: Performed By: #### L 500.4050, L900.0098, BTS, L3890.6301, L100.0100, L3890.6102, L503.0106, L509.8002, L3890.6006, L509.4006 #### [facility] [address] [place], [place], [address] Comprehensive Metabolic Prof ilon 11-01-2024 ALK PHOS 78 U/L Normal 35-104 [facility] Comment on above: Performed By: #### L 500.4050, L900.0098, BTS, L3890.6301, L100.0100, L3890.6102, L503.0106, L509.8002, L3890.6006, L509.4006 #### [facility] [address] [place], [place], [address] BUN/CRE 14.9 RATIO Normal 10-20 [facility] Comment on above: Performed By: #### L 500.4050, L900.0098, BTS, L3890.6301, L100.0100, L3890.6102, L503.0106, L509.8002, L3890.6006, L509.4006 #### [facility] [address] [place], [place], [id number] GAP 12 Normal 5-15 [facility] Comment on above: Performed By: #### L 500.4050, L900.0098, BTS, L3890.6301, L100.0100, L3890.6102, L503.0106, L509.8002, L3890.6006, L509.4006 #### [facility] [address] [place], [place], [address] Potassium [Moles/Vol] 4.1 mmol/L Normal 3.3-5.1 [facility] Comment on above: Performed By: #### L 500.4050, L900.0098, BTS, L3890.6301, L100.0100, L3890.6102, L503.0106, L509.8002, L3890.6006, L509.4006 #### [facility] [address] [place], [address] T PROT 7.3 g/dL Normal 5.9-8.4 [facility] Comment on above: Performed By: #### L 500.4050, L900.0098, BTS, L3890.6301, L100.0100, L3890.6102, L503.0106, L509.8002, L3890.6006, L509.4006 #### [facility] [address] [place], [place], [id number] Comprehensive Metabolic Prof ilOrdered By: Mercy Avendano on 11-01-2024 AST [Catalytic activity/Vol] 18 U/L <32 [facility] Comment on above: Performed By: #### L 500.4050, L900.0098, BTS, L3890.6301, L100.0100, L3890.6102, L503.0106, L509.8002, L3890.6006, L509.4006 #### [facility] [address] [place], [address] Eosinophil percentageOrdered By: Mercy Avendano on 11-01-2024 Eosinophils/100 WBC (Bld) 1.4 % 0-5 [facility] Erythrocyte distribution wid th ratioOrdered By: Mercy Avendano on 11-01-2024 Erythrocyte distribution width (RBC) [Ratio] 12.7 % 11.6-14.6 [facility] Erythrocyte distribution wid th standard deviationOrdered By: Mercy Avendano on 11-01-2024 Erythrocyte distribution width (RBC) [Ratio] 40.7 fl 35.1-43.9 [facility] Glomerular filtration rate ( GFR) estimation/1.73 sq m using serum, plasma, or whole bOrdered By: Mercy Avendano on 11-01-2024 GFR/1.73 sq M.predicted among non-blacks MDRD (S/P/Bld) [Vol rate/Area] 124 mL/min/{1.73_m2} >60 [facility] Comment on above: mL/min/1.73m2 CKD-EP I Creatinine Equation (2020) Result Comment: mL/m in/1.73m2 CKD-EPI Creatinine Equation (2020) Performed By: #### L 500.4050, L900.0098, BTS, L3890.6301, L100.0100, L3890.6102, L503.0106, L509.8002, L3890.6006, L509.4006 #### [facility] [address] [place], [address] HIVon 11-01-2024 HIV Non-Reactive Normal Nonreactive [facility] Comment on above: Result Comment: Non- Reactive Reactive Repeatedly reactive samples must be confirmed according to CDC recommended confirmatory algorithms. The subresults for either HIVAG or AHIV can be used as an aid in the selection of the confirmation algorithm for reactive samples. Send out specimens with Reactive results to [facility] for confirmation. Order the HIV antibody detection and differentiation: [id number] Performed By: #### L 500.4050, L900.0098, BTS, L3890.6301, L100.0100, L3890.6102, L503.0106, L509.8002, L3890.6006, L509.4006 ####[facility] [address] [place], [place], [id number] Hematocrit Auto (Bld) [Volum e fraction]Ordered By: Mercy Avendano on 11-01-2024 Hematocrit (Bld) [Volume fraction] 40.8 % 37-47 [facility] Hemoglobin measurementOrdere d By: Mercy Avendano on 11-01-2024 Hemoglobin (Bld) [Mass/Vol] 13.8 g/dL 12.0-15.0 [facility] Hepatitis C Antibodyon 11-01 Hepatitis C Ab Non-Reactive Normal Nonreactive [facility] Comment on above: Result Comment: Reac tive: Presumptive evidence of antibodies to HCV. Follow CDC recommendations for supplemental testing. Non-Reactive: Antibodies to HCV were not detected; does not exclude the possibility of exposure to HCV Reactive Results are presumptive evidence of antibodies to HCV. Follow CDC recommendations for supplemental testing. Order confirmation testing: HCV Quant by PCR testing - HCVPCR #[id number] Non Reactive: < 0.8 Equivocal: >/= 0.8 to < 1.0 Reactive: >/= 1.0 The CDC requires that a reactive/equivocal HCV antibody result be sent out for confirmation. HCV Quant by PCR testing. Performed By: #### L 500.4050, L900.0098, BTS, L3890.6301, L100.0100, L3890.6102, L503.0106, L509.8002, L3890.6006, L509.4006 ####[facility] [address] [place], [place], [address] Immature granulocytes/100 WB C Auto (Bld)Ordered By: Mercy Avendano on 11-01-2024 Immature granulocytes/100 WBC (Bld) 0.200 % 0.0-0.9 [facility] Comment on above: IG% - Immature Granu locytes (promyelocytes, myelocytes and metamyelocytes) > 1% indicates that a LEFT SHIFT is Present. L3890.6102on 11-01-2024 HEP B Surf Ag Non-Reactive Normal Nonreactive [facility] Comment on above: Result Comment: Reac tive: Presumptive evidence of HBV. Repeatedly reactive samples must be confirmed using a neutralization test ([employer] HBsAg Confirmatory Test) Non-Reactive: HBsAg not detected; does not exclude the possibility of exposure to HBV Performed By: #### L 500.4050, L900.0098, BTS, L3890.6301, L100.0100, L3890.6102, L503.0106, L509.8002, L3890.6006, L509.4006 ####[facility] [address] [facility]. [place], [place], [address] L509.4006on 11-01-2024 Rubella IgG REAC Normal Nonreactive [facility] Comment on above: Result Comment: Anti body Result: Interpretation Non-Reactive: Non-Immune Reactive: Immune The following results were obtained with the [employer] Rubella IgG assay. Results from assays of other manufacturers cannot be used interchangeably. Performed By: #### L 500.4050, L900.0098, BTS, L3890.6301, L100.0100, L3890.6102, L503.0106, L509.8002, L3890.6006, L509.4006 #### [facility] [address] [place], [address] Laboratory - Microbiology an d Antimicrobial susceptibilityOrdered By: eMrcy Avendano on 11-01-2024 HBV surface Ag Ql (S) Non-Reactive Nonreactive [facility] Comment on above: Reactive: Presumptiv e evidence of HBV. Repeatedly reactive samples must be confirmed using a neutralization test ([employer] HBsAg Confirmatory Test)Non-Reactive: HBsAg not detected; does not exclude the possibility of exposure to HBV MCV (mean corpuscular volume ) determinationOrdered By: Mercy Avendano on 11-01-2024 MCV (RBC) [Entitic vol] 87.7 fL 81-99 [facility] Mean corpuscular hemoglobin (MCH) determinationOrdered By: Mercy Avendano on 11-01-2024 MCH (RBC) [Entitic mass] 29.7 pg 27.0-32.0 [facility] Mean corpuscular hemoglobin concentration (MCHC) determinationOrdered By: Mercy Avendano on 11-01-2024 MCHC (RBC) [Mass/Vol] 33.8 g/dL 32-36 [facility] Mean platelet volume determi nationOrdered By: Mercy Avendano on 11-01-2024 Platelet mean volume (Bld) [Entitic vol] 11.6 fL 6.2-12.0 [facility] Monocyte percentageOrdered B y: Mercy Avendano on 11-01-2024 Monocytes/100 WBC (Bld) 5.7 % 0-10 [facility] NATERAon 11-01-2024 NATURA SEE SCANNED REPORT Normal [facility] Comment on above: Performed By: #### L 500.4050, L900.0098, BTS, L3890.6301, L100.0100, L3890.6102, L503.0106, L509.8002, L3890.6006, L509.4006 #### [facility] [address] [place], [address] Neutrophil percentageOrdered By: Mercy Avendano on 11-01-2024 Neutrophils/100 WBC (Bld) 60.8 % 47-70 [facility] No Panel InformationOrdered By: Mercy Avendano on 11-01-2024 HIV (1&2) Antibody Non-Reactive Nonreactive [facility] Comment on above: Non-ReactiveReactive Repeatedly reactive samples must be confirmed according to CDC recommended confirmatory algorithms. The subresults for either HIVAG or AHIV can be used as an aid in the selection of the confirmation algorithm for reactive samples.Send out specimens with Reactive results to [facility] for confirmation.Order the HIV antibody detection and differentiation: #[id number] Nucleated red blood cell per centageOrdered By: Mercy Avendano on 11-01-2024 Nucleated RBC/100 WBC (Bld) [Ratio] 0 % 0-5 [facility] Platelet countOrdered By: Hans Avenadno on 11-01-2024 Platelets (Bld) [#/Vol] 194 10*3/uL 150-450 [facility] Potassium measurement (mass/ volume)Ordered By: Mercy Avendano on 11-01-2024 Potassium (Unsp spec) [Mass/Vol] 4.1 mmol/L 3.3-5.1 [facility] RBC Auto (Bld) [#/Vol]Ordere d By: Mercy Avendano on 11-01-2024 RBC (Bld) [#/Vol] 4.65 10*6/uL 4.2-5.4 [facility] Serum creatinine measurement (mass/volume)Ordered By: Mercy Avendano on 11-01-2024 Creatinine [Mass/Vol] 0.61 mg/dL Low 0.70-1.20 [facility] Comment on above: Performed By: #### L 500.4050, L900.0098, BTS, L3890.6301, L100.0100, L3890.6102, L503.0106, L509.8002, L3890.6006, L509.4006 #### [facility] [address] [facility] [place], [place], [id number] Serum globulin measurementOr dered By: Mercy Avendano on 11-01-2024 Globulin (S) [Mass/Vol] 2.9 g/dL 2.2-4.2 [facility] Comment on above: Performed By: #### L 500.4050, L900.0098, BTS, L3890.6301, L100.0100, L3890.6102, L503.0106, L509.8002, L3890.6006, L509.4006 #### [facility] [address] [facility] [place], [place], [id number] Serum glucose measurement (m ass/volume)Ordered By: Mercy Avendano on 11-01-2024 Glucose [Mass/Vol] 91 mg/dL 70-99 [facility] Comment on above: Performed By: #### L 500.4050, L900.0098, BTS, L3890.6301, L100.0100, L3890.6102, L503.0106, L509.8002, L3890.6006, L509.4006 #### [facility] [address] [facility] [place], [place], [address] Serum or plasma alanine garrett otransferase (ALT) measurementOrdered By: Mercy Avendano on 11-01-2024 ALT [Catalytic activity/Vol] 41 U/L High <35 [facility] Comment on above: Performed By: #### L 500.4050, L900.0098, BTS, L3890.6301, L100.0100, L3890.6102, L503.0106, L509.8002, L3890.6006, L509.4006 #### [facility] [address] [place], [address] Serum or plasma albumin jennyfer urement (mass/volume)Ordered By: Mercy Avendano on 11-01-2024 Albumin [Mass/Vol] 4.4 g/dL 3.5-5.0 [facility] Comment on above: Performed By: #### L 500.4050, L900.0098, BTS, L3890.6301, L100.0100, L3890.6102, L503.0106, L509.8002, L3890.6006, L509.4006 #### [facility] [address] [place], [address] Serum or plasma albumin/glob ulin mass ratioOrdered By: Mercy Avendano on 11-01-2024 Albumin/Globulin [Mass ratio] 1.5 {ratio} 0.9-2.4 [facility] Comment on above: Performed By: #### L 500.4050, L900.0098, BTS, L3890.6301, L100.0100, L3890.6102, L503.0106, L509.8002, L3890.6006, L509.4006 #### [facility] [address] [place], [address] Serum or plasma alkaline norma sphatase measurementOrdered By: Mercy Avendano on 11-01-2024 ALP [Catalytic activity/Vol] 78 U/L 35-104 [facility] Serum or plasma calcium jennyfer urement (mass/volume)Ordered By: Mercy Avendano on 11-01-2024 Calcium [Mass/Vol] 9.6 mg/dL 7.6-11.0 [facility] Comment on above: Performed By: #### L 500.4050, L900.0098, BTS, L3890.6301, L100.0100, L3890.6102, L503.0106, L509.8002, L3890.6006, L509.4006 #### [facility] [address] [place], [address] Serum or plasma urea nitroge n measurement (mass/volume)Ordered By: Mercy Avendano on 11-01-2024 Urea nitrogen [Mass/Vol] 9 mg/dL 4-19 [facility] Comment on above: Performed By: #### L 500.4050, L900.0098, BTS, L3890.6301, L100.0100, L3890.6102, L503.0106, L509.8002, L3890.6006, L509.4006 #### [facility] [address] [place], [address] Sodium levelOrdered By: Bibiana Avendano on 11-01-2024 Sodium [Moles/Vol] 135 mmol/L 133-145 [facility] Comment on above: Performed By: #### L 500.4050, L900.0098, BTS, L3890.6301, L100.0100, L3890.6102, L503.0106, L509.8002, L3890.6006, L509.4006 #### [facility] [address] [place], [address] Syphilis Antibodieson 2024 Syphilis Abs Non-Reactive Normal Nonreactive [facility] Comment on above: Performed By: #### L 500.4050, L900.0098, BTS, L3890.6301, L100.0100, L3890.6102, L503.0106, L509.8002, L3890.6006, L509.4006 ####[facility] [address] [place], [place], [id number] Total proteinOrdered By: Dequan Avendano on 11-01-2024 Protein [Mass/Vol] 7.3 g/dL 5.9-8.4 [facility] Type AND Screenon 11-01-2024 ABO and Rh group Nom (Bld) Blood group O Rh(D) positive Normal [facility] Comment on above: Order Comment: PN Performed By: #### L 500.4050, L900.0098, BTS, L3890.6301, L100.0100, L3890.6102, L503.0106, L509.8002, L3890.6006, L509.4006 ####[facility] [address] [place], [address] Vitamin B12 ser/plasOrdered By: Mercy Avendano on 11-01-2024 Cobalamin (Vitamin B12) [Mass/Vol] 1647 pg/mL High 180-914 [facility] Comment on above: Performed By: #### L 500.4050, L900.0098, BTS, L3890.6301, L100.0100, L3890.6102, L503.0106, L509.8002, L3890.6006, L509.4006 #### [facility] [address] [place], [address] White blood cell (WBC) count Ordered By: Mercy Avendano on 11-01-2024 WBC (Bld) [#/Vol] 5.6 10*3/uL 4.4-11.0 [facility] PAP I-G w/rfx hrHPV-Aptimaon 10-31-2024 ADEQ Comment Normal . [facility] Comment on above: Order Comment: Speci men Comment: [id number] Comment: Source.............CervixSpecimen Comment: Other..............Specimen Comment: No. of containers..01 ThinPrep Vial Result Comment: Sati sfactory for evaluation. No endocervical component is identified. Performed By: #### L 7000.1800, M100.2200, L7400.0353, L501.0900 ####[facility] [address] [place], [address] COMM . Normal . [facility] Comment on above: Order Comment: Speci men Comment: [id number] Comment: Source.............CervixSpecimen Comment: Other..............Specimen Comment: No. of containers..01 ThinPrep Vial Performed By: #### L 7000.1800, M100.2200, L7400.0353, L501.0900 ####[facility] [address] [place], [place], [address] COMMENT Comment Normal . [facility] Comment on above: Order Comment: Speci men Comment: [id number] Comment: Source.............CervixSpecimen Comment: Other..............Specimen Comment: No. of containers..01 ThinPrep Vial Result Comment: This liquid based ThinPrep(R) pap test was screened with the use of an image guided system. Performed By: #### L 7000.1800, M100.2200, L7400.0353, L501.0900 ####[facility] [address] [place], [address] DIAG Comment Normal . [facility] Comment on above: Order Comment: Speci men Comment: [id number] Comment: Source.............CervixSpecimen Comment: Other..............Specimen Comment: No. of containers..01 ThinPrep Vial Result Comment: NEGA TIVE FOR INTRAEPITHELIAL LESION OR MALIGNANCY. Performed By: #### L 7000.1800, M100.2200, L7400.0353, L501.0900 ####[facility] [address] [place], [address] HPV RFLX Comment Normal . [facility] Comment on above: Order Comment: Speci men Comment: [id number] Comment: Source.............CervixSpecimen Comment: Other..............Specimen Comment: No. of containers..01 ThinPrep Vial Result Comment: The HPV DNA reflex criteria were not met with this specimen result therefore, no HPV testing was performed. Performed at: [address] [id number] Ophthalmic Dispenser: Yu Martin MD, Phone: [phone] Performed By: #### L 7000.1800, M100.2200, L7400.0353, L501.0900 ####[facility] [address] [place], [place], [address] PAPSMR Comment Normal . [facility] Comment on above: Order Comment: Speci men Comment: [id number] Comment: Source.............CervixSpecimen Comment: Other..............Specimen Comment: No. of containers..01 ThinPrep Vial Result Comment: The Pap smear is a screening test designed to aid in the detection of premalignant and malignant conditions of the uterine cervix. It is not a diagnostic procedure and should not be used as the sole means of detecting cervical cancer. Both false-positive and false-negative reports do occur. Performed By: #### L 7000.1800, M100.2200, L7400.0353, L501.0900 ####[facility] [address] [place], [place], [address] PERFORM Comment Normal . [facility] Comment on above: Order Comment: Speci men Comment: [id number] Comment: Source.............CervixSpecimen Comment: Other..............Specimen Comment: No. of containers..01 ThinPrep Vial Result Comment: Lupillo Traylor, Director Of Athletics (ASCP) Performed By: #### L 7000.1800, M100.2200, L7400.0353, L501.0900 ####[facility] [address] [place], [address] Chlamydia/GC CARMEN aptimaon CHLAMY,NUC ACID Negative Normal Negative [facility] Comment on above: Performed By: #### L 7000.1800, M100.2200, L7400.0353, L501.0900 ####[facility] [address] [place], [address] GC BY NUC ACID Negative Normal Negative [facility] Comment on above: Result Comment: Perf ormed at: =G - [facility] [address] [id number] Ophthalmic Dispenser: Yu Martin MD, Phone: [phone] Performed By: #### L 7000.1800, M100.2200, L7400.0353, L501.0900 ####[facility] [address] [place], [address] Urine Cultureon 10-26-2024 URC Culture exhibits no growth. Normal [facility] Comment on above: Performed By: #### L 7000.1800, M100.2200, L7400.0353, L501.0900 ####[facility] [address] [place], [address] Cervical or vagninal specime n microscopic examination by cytology stain (reported asOrdered By: Mercy Avendano on 10-25-2024 Cytology report Cyto stain Doc (Cvx/Vag) Comment . [facility] Comment on above: The Pap smear is a s creening test designed to aid in thedetection of premalignant and malignant conditions of theuterine cervix. It is not a diagnostic procedure andshould not be used as the sole means of detecting cervicalcancer. Both false-positive and false-negative reports dooccur. Chlamydia trachomatis rRNA d etection by probe and target amplification methodOrdered By: Mercy Avendano on 10-25-2024 C. trachomatis rRNA CARMEN+probe Ql (Unsp spec) Negative Negative [facility] - CytologyOrdered By: Mercy Avendano on 10-25-2024 Director Of Athletics Cyto stain Nom (Cvx/Vag) [ID] Comment . [facility] Comment on above: Joann Briseno ologist (ASCP) Laboratory - Miscellaneous t estsOrdered By: Mercy Avendano on 10-25-2024 Service comment (Unsp spec) [Interp] . . [facility] Neisseria gonorrhoeae nuclei c acid detection by amplified probe techniqueOrdered By: Mercy Avendano on 10-25-2024 N. gonorrhoeae DNA CARMEN+probe Ql (Unsp spec) Negative Negative [facility] Comment on above: Performed at: =[address] [id number] Director: Yu Martin MD, Phone: [phone] No Panel InformationOrdered By: Mercy Avendano on 10-25-2024 Pap Smear Specimen Adequacy Comment . [facility] Comment on above: Satisfactory for speedy luation. No endocervical component is identified. Shower Enclosure Installer Office Visit Reporton 10-25-2024 Shower Enclosure Installer Office Visit Report [facility] [address], [address] [place] [address] OFFICE VISIT Date of Service: 10/25/24 MR#: [id number] Acct: [id number] Name: HANH RM Rep #: [id number] : 1995 Provider: JONN Cox ams Age/Sex: 29/F Location[place] [facility] [place] Status: Signed Intake Vital Signs 12/29/23 16:16 10/25/24 13:03 Height 5 ft 3 in 5 ft 3 in Weight: 152 lb 6 oz BMI 26.9 BP 119/76 Intake Visit Reasons: NOB: LMP 08/21, ANNA 05/28 *Doc and provider contracting consultant only* Chief Complaint: New OB 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: No Is patient in pain?: No Allergies nitrofurantoin (From Macrobid) Allergy (Unknown, Verified 10/25/24 13:01) Hives nickel Allergy (Verified 10/25/24 13:01) Rash Sulfa (Sulfonamide Antibiotics) Allergy (Verified 10/25/24 13:01) Hives Medications ???Medication ???Instructions ???Recorded ???Confirmed ???Type docosahexaenoic acid 200 mg 200 mg PO DAILY 10/30/23 10/25/24 History capsule ( DHA) aspirin 81 mg tablet,delayed 81 mg PO QDAY 10/10/24 10/25/24 Hi story release cholestyramine (with sugar) 4 gram ea PO 10/10/24 10/25/24 History oral powder mecobalamin (vitamin B12) 10,000 mcg IM 10/10/24 10/25/24 History mcg solution for injection ondansetron 4 mg disintegrating 4 mg PO Q6H PRN nausea and 5 10/10/24 Rx tablet vomiting #90 tabs Last Menstrual Period: 08/21/24 Have you fallen in the past year?: No PFSH PFSH Medical History (Updated 10/25/24 @ 13:08 by Daysi Alva) Preeclampsia, severe Large for dates affecting management of mother (spontaneous vaginal delivery) Retained placenta Abnormal Pap smear of cervix History of pre-term labor Retained placenta or membranes Headache Ectopic Pre-eclampsia Herpes genitalis Migraines Anemia affecting Anxiety Surgical History [place] teeth removed Hx of cholecystectomy Family History (Updated 10/10/24 @ 08:40 by Joya Villeda, RN) Father Squamous cell carcinoma Mother Hyperlipidemia Brother Seizures Grandmother Breast cancer Social History (Updated 10/10/24 @ 08:30 by Joya Villeda, RN) adopted: No household members: family and children housing: house number of children: 3 service: No current occupational status: unemployed current occupation: [employer] pets and animals: Yes pets and animals: dog(s) history of recent travel: No Smoking Status: Never smoker alcohol intake: never substance use type: does not use caffeine: Yes what type of physical activity do you participate in: none sandra/synagogue: Buddhist seatbelt use: always do you feel safe at home: Yes 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 Date Name GA/Weeks Outcome Route Bth Weight Gen Labor Lgth Anesthesia Del Locatn Provider FOB 07/24/15 [place] 39 live - full term 6lbs 9oz Female epidural [facility] Dr. Edna Brambila 07/08/19 [place] 37 live - full term 8lbs 6oz Male [facility] Dr. Edna Bethea S[place] 11/17/23 [place] 36 live - 6lbs 15oz Female [facility] [place] Delivery Date: 07/24/15 Last Updated by: Lissa Ngo No issues during or delivery Delivery Date: 07/08/19 Last Updated by: Lissa Ngo Went into pre-term labor at 36 weeks but was able to stop labor. Developed pre-eclampsia and was induced at 37 weeks. Retained placenta, curettage immediately after delivery Delivery Date: 11/17/23 Last Updated by: Lissa Ngo COVID, LGA, severe pre-e HPI NOB: LMP 08/21, ANNA 05/28 *Doc and provider contracting consultant only* Details: HANH RM is a 29 year old who presents for New OB visit. OB Visit ANNA Calculator Estimated Delivery Date Method Current WG Current Estimate 05/28/25 LMP (Certain) 9w 2d Comments: HIV: Urine Culture: Sequential Screen: NIPT Screen: Estimated Due Date: 05/28/25 Expected Delivery Route/Plan Labor Preferences- CB/BF classes: [] labor support person: [] labor intervention preferences: [] pain management options preferred: [] cut cord/dad catch: [] : [] PP control planned: [] discussed possible routes of delivery and associated risks: [] special requests: [] Specific Issue/Plans Covid status: [] Flu vaccine: [] Tdap vaccine: [] Rhogam: [] LARC form signed: [] Problem list reviewed and updated with the most current plan of care details and appropriate orders placed. Relevant counseling for the gestational age provid (more content not included)... Normal [facility] Protein+Creatinine Ratio,Uri neon 10-25-2024 PROT:CRE RATIO 69 mg/g CRE Normal 0-200 [facility] Comment on above: Performed By: #### L 7000.1800, M100.2200, L7400.0353, L501.0900 ####[facility] [address] [place], [address] Protein (U) [Mass/Vol] 9.4 mg/dL Normal 0.0-12.0 [facility] Comment on above: Performed By: #### L 7000.1800, M100.2200, L7400.0353, L501.0900 ####[facility] [address] [place], [address] UR CREAT 135.00 mg/dL Normal 28.00-217.00 [facility] Comment on above: Performed By: #### L 7000.1800, M100.2200, L7400.0353, L501.0900 ####[facility] [address] [place], [address] Random urine creatinine jennyfer urement (mass/volume)Ordered By: Mercy Avendaon on 10-25-2024 Creatinine Unsp time (U) [Mass/Vol] 135.00 mg/dL 28.00-217.00 [facility] Urine cultureOrdered By: Dequan Avendano on 10-25-2024 Bacteria identified Cx Nom (U) Culture exhibits no growth. [facility] Urine protein measurement (m ass/volume)Ordered By: Mercy Avendano on 10-25-2024 Protein (U) [Mass/Vol] 9.4 mg/dL 0.0-12.0 [facility] Urine protein/creatinine mas s ratioOrdered By: Mercy Avendano on 10-25-2024 Protein/Creatinine (U) [Mass ratio] 69 mg/g CRE 0-200 [facility] CBC (INCLUDES DIFF/PLT)on Basophils (Bld) [#/Vol] 0.02 10*3/uL Normal 0-200 [facility] Comment on above: Performed By: #### 9 2665, 6399, 02976, 62311 #### [facility] of [address], [address] [place], [place] [address] Software Development Project Manager: Terry Calvert MD #### 568 #### [facility] [place], [place] Software Development Project Manager: Mahad Bethea M.D.,PhD Basophils/100 WBC (Bld) 0.4 % Normal [facility] Comment on above: Performed By: #### 9 2665, 6399, 90425, 14429 #### [facility] of [address] Software Development Project Manager: Terry Calvert MD #### 568 #### [facility]/[place] [id number] [facility] [place], [place] Software Development Project Manager: Mahad Bethea M.D.,PhD Eosinophils (Bld) [#/Vol] 0.108 10*3/uL Normal 15-500 [facility] Comment on above: Performed By: #### 9 2665, 8599, 57787, 94325 #### [facility] of [address], [address] [place] [address] Software Development Project Manager: Terry Calvert MD #### 568 #### [facility]/[place] [id number] [facility] [address] [place] Software Development Project Manager: Mahad Bethea M.D.,PhD Eosinophils/100 WBC (Bld) 2.2 % Normal [facility] Comment on above: Performed By: #### 9 2665, 8399, 99604, 20934 #### [facility] of [address] Software Development Project Manager: Terry Calvert MD #### 568 #### [facility]/[place] [id number] [facility] [address] [place], [place] Software Development Project Manager: Mahad Bethea M.D.,PhD Erythrocyte distribution width (RBC) [Ratio] 12.7 % Normal 11.0-15.0 [facility] Comment on above: Performed By: #### 9 2495, 6399, 76294, 75259 #### [facility] of [place] [address] [address] , [address] [place], [place] [address] Software Development Project Manager: Terry Calvert MD #### 568 #### [facility]/[address] [place], [place] Software Development Project Manager: Mahad Bethea M.D.,PhD Hematocrit (Bld) [Volume fraction] 41.4 % Normal 35.0-45.0 [facility] Comment on above: Performed By: #### 9 4115, 6399, 98704, 09108 #### [facility] of [address], [address] [place], [place] [address] Software Development Project Manager: Terry Calvert MD #### 568 #### [facility]/[address] [place], [place] Software Development Project Manager: Mahad Bethea M.D.,PhD Hemoglobin (Bld) [Mass/Vol] 13.7 g/dL Normal 11.7-15.5 [facility] Comment on above: Performed By: #### 9 5445, 6399, 83327, 81190 #### [facility] of [place] [address] [address] , [address] [place], [place] [address] Software Development Project Manager: Terry Calvert MD #### 568 #### [facility]/[address] [place], [place] Software Development Project Manager: Mahad Bethea M.D.,PhD Lymphocytes (Bld) [#/Vol] 2.048 10*3/uL Normal 850-3900 [facility] Comment on above: Performed By: #### 9 2455, 6399, 65079, 35778 #### [facility] of [place] [address], [address] [place], [place] [address] Software Development Project Manager: Terry Calvert MD #### 568 #### [facility]/[place] [id number] [facility] [place], [place] Software Development Project Manager: Mahad Bethea M.D.,PhD Lymphocytes/100 WBC (Bld) 41.8 % Normal [facility] Comment on above: Performed By: #### 9 1475, 1280, 85974, 37189 #### [facility] of [place] [address], [address] [place], [place] [address] Software Development Project Manager: Terry Calvert MD #### 568 #### [facility]/[place] [id number] [facility] [place], [place] Software Development Project Manager: Mahad Bethea M.D.,PhD MCH (RBC) [Entitic mass] 29.4 pg Normal 27.0-33.0 [facility] Comment on above: Performed By: #### 9 5865, 0440, 31959, #### [facility] of [place] [address] [address] , [address] [place], [place] [address] Software Development Project Manager: Terry Calvert MD #### 568 #### [facility]/[address] [place], [place] Software Development Project Manager: Mahad Bethea M.D.,PhD MCHC (RBC) [Mass/Vol] 33.1 g/dL Normal 32.0-36.[address] [facility] Comment on above: Result Comment: For adults, a slight decrease in the calculated MCHC value (in the range of 30 to 32 g/dL) is most likely not clinically significant; however, it should be interpreted with caution in correlation with other red cell parameters and the patient's clinical condition. Performed By: #### 9 2345, 9149, 46514, 06029 #### [facility] of [place] [address], [address] [place], [place] [address] Software Development Project Manager: Terry Calvert MD #### 568 #### [facility]/[place] [address] [facility] [address] [place] Software Development Project Manager: Mahad Bethea M.D.,PhD MCV (RBC) [Entitic vol] 88.8 fL Normal 80.0-100.0 [facility] Comment on above: Performed By: #### 9 2665, 6399, 56447, 14016 #### [facility] of [address], [address] [place] [address] Software Development Project Manager: Terry Calvert MD #### 568 #### [facility]/[address] [place], [place] Software Development Project Manager: Mahad Bethea M.D.,PhD Monocytes (Bld) [#/Vol] 0.377 10*3/uL Normal 200-950 [facility] Comment on above: Performed By: #### 9 2665, 6399, 57545, 66346 #### [facility] of [address], [address] [place], [place] [address] Software Development Project Manager: Terry Calvert MD #### 568 #### [facility]/[address] [place], [place] Software Development Project Manager: Mahad Bethea M.D.,PhD Monocytes/100 WBC (Bld) 7.7 % Normal [facility] Comment on above: Performed By: #### 9 2665, 6399, 33712, 63985 #### [facility] of [address], [address] [place] [address] Software Development Project Manager: Terry Calvert MD #### 568 #### [facility] [address] [place] Software Development Project Manager: Mahad Bethea M.D.,PhD Neutrophils (Bld) [#/Vol] 2.347 10*3/uL Normal 8928-8580 [facility] Comment on above: Performed By: #### 9 2665, 6399, 16445, 18636 #### [facility] of [place] [address], [address] [place] [address] Software Development Project Manager: Terry Calvert MD #### 568 #### [facility]/[place] [address] [facility] [address] [place] Software Development Project Manager: Mahad Bethea M.D.,PhD Neutrophils/100 WBC (Bld) 47.9 % Normal [facility] Comment on above: Performed By: #### 9 2665, 6399, 64894, 60906 #### [facility] of [facility] [address], [address] [place] [address] Software Development Project Manager: Terry Calvert MD #### 568 #### [facility]/[place] [address] [facility] [place], [place] Software Development Project Manager: Mahad Bethea M.D.,PhD Platelet mean volume (Bld) [Entitic vol] 11.6 fL Normal 7.5-12.5 [facility] Comment on above: Performed By: #### 9 2665, 6399, 02724, 98225 #### [facility] of [place] [address] , [address] [place] [address] Software Development Project Manager: Terry Calvert MD #### 568 #### [facility] [address] [facility] [place], [place] Software Development Project Manager: Mahad Bethea M.D.,PhD Platelets (Bld) [#/Vol] 208 10*3/uL Normal 140-400 [facility] Comment on above: Performed By: #### 9 2665, 6399, 01697, 47311 #### [facility] of [facility] [address] , [address] [place] [address] Software Development Project Manager: Terry Calvert MD #### 568 #### [facility] [address] [place] Software Development Project Manager: Mahad Bethea M.D.,PhD RBC (Bld) [#/Vol] 4.66 10*6/uL Normal 3.80-5.10 [facility] Comment on above: Performed By: #### 9 3895, 6399, 92306, 77864 #### [facility] of [address], [address] [place], [place] [address] Software Development Project Manager: Terry Calvert MD #### 568 #### [facility]/[place] [id number] [facility] [place], [place] Software Development Project Manager: Mahad Bethea M.D.,PhD WBC (Bld) [#/Vol] 4.9 10*3/uL Normal 3.8-10.8 [facility] Comment on above: Performed By: #### 9 4025, 6399, 49686, 87122 #### [facility] of [address], [address] [place], [place] [address] Software Development Project Manager: Terry Calvert MD #### 568 #### [facility]/[place] [address] [facility] [place], [place] Software Development Project Manager: Mahad Bethea M.D.,PhD COMPREHENSIVE METABOLIC PANE L W/ANION GAPon 10-03-2024 Albumin [Mass/Vol] 4.6 g/dL Normal 3.6-5.1 [facility] Comment on above: Performed By: #### 9 6225, 6399, 11506, 47251 #### [facility] of [address], [address] [place], [place] [address] Software Development Project Manager: Terry Calvert MD #### 568 #### [facility]/[address] [place], [place] Software Development Project Manager: Mahad Bethea M.D.,PhD ALP [Catalytic activity/Vol] 67 U/L Normal 31-125 [facility] Comment on above: Performed By: #### 9 3355, 6399, 58339, 49637 #### [facility] of [address], [address] [place], [place] [address] Software Development Project Manager: Terry Calvert MD #### 568 #### [facility] [place], [place] Software Development Project Manager: Mahad Bethea M.D.,PhD ALT [Catalytic activity/Vol] 29 U/L Normal 6-29 [facility] Comment on above: Performed By: #### 9 2665, 6399, 18255, 92005 #### [facility] of [address], [address] [place] [address] Software Development Project Manager: Terry Calvert MD #### 568 #### [facility] [place], [place] Software Development Project Manager: Mahad Bethea M.D.,PhD AST [Catalytic activity/Vol] 15 U/L Normal 10-30 [facility] Comment on above: Performed By: #### 9 2665, 6399, 54945, 39442 #### [facility] of [address], [address] [place] [address] Software Development Project Manager: Terry Calvert MD #### 568 #### [facility] [place], [place] Software Development Project Manager: Mahad Bethea M.D.,PhD Bilirubin [Mass/Vol] 0.5 mg/dL Normal 0.2-1.2 Ques t [facility] Comment on above: Performed By: #### 9 2665, 6399, 76681, 24815 #### [facility] of [address], [address] [place] [address] Software Development Project Manager: Terry Calvert MD #### 568 #### [facility] [place], [place] Software Development Project Manager: Mahad Bethea M.D.,PhD Calcium [Mass/Vol] 9.4 mg/dL Normal 8.6-10.2 [facility] Comment on above: Performed By: #### 9 2665, 6399, 97422, 21490 #### [facility] of [address], [address] [place], [place] [address] Software Development Project Manager: Terry Calvert MD #### 568 #### [facility]/[place] [address] [facility] [place], [place] Software Development Project Manager: Mahad Bethea M.D.,PhD Chloride [Moles/Vol] 106 mmol/L Normal 98-110 [facility] Comment on above: Performed By: #### 9 2665, 6399, 97720, 74496 #### [facility] of [place] [address] [address] , [address] [place], [place] [address] Software Development Project Manager: Terry Calvert MD #### 568 #### [facility]/[place] [address] [facility] [place], [place] Software Development Project Manager: Mahad Bethea M.D.,PhD CO2 [Moles/Vol] 26 mmol/L Normal 20-32 [facility] Comment on above: Performed By: #### 9 4585, 5099, 95275, 06459 #### [facility] of [place] [address] [address] , [address] [place], [place] [address] Software Development Project Manager: Terry Calvert MD #### 568 #### [facility] [place], [place] Software Development Project Manager: Mahad Bethea M.D.,PhD Creatinine [Mass/Vol] 0.69 mg/dL Normal 0.50-0.[address] [facility] Comment on above: Performed By: #### 9 2665, 6399, 57714, 47419 #### [facility] of [place] [address] [address] , [address] [place], [place] [address] Software Development Project Manager: Terry Calvert MD #### 568 #### [facility] [place], [place] Software Development Project Manager: Mahad Bethea M.D.,PhD ELECTROLYTE BALANCE 7 mmol/L (calc) Normal 7-17 [facility] Comment on above: Performed By: #### 9 1125, 6399, 34167, 12147 #### [facility] of [address], [address] [place], [place] [address] Software Development Project Manager: Terry Calvert MD #### 568 #### [facility] [place] Software Development Project Manager: Mahad Bethea M.D.,PhD GFR/1.73 sq M.predicted among non-blacks MDRD (S/P/Bld) [Vol rate/Area] 120 mL/min/{1.73_m2} Normal > OR = 60 [facility] Comment on above: Performed By: #### 9 245, 4930, 18042, 41506 #### [facility] of [address], [address] [place], [place] [address] Software Development Project Manager: Terry Calvert MD #### 568 #### [facility]/[place] [address] [facility] [address] [place] Software Development Project Manager: Mahad Bethea M.D.,PhD Glucose [Mass/Vol] 81 mg/dL Normal 65-99 [facility] Comment on above: Result Comment: Fasting reference interval Performed By: #### 9 007, 2009, 02754, 78589 #### [facility] of [address], [address] [place], [place] [address] Software Development Project Manager: Terry Calvert MD #### 568 #### [facility]/[place] [address] [facility] [address] [place] Software Development Project Manager: Mahad Bethea M.D.,PhD Potassium [Moles/Vol] 3.8 mmol/L Normal 3.5-5.3 [facility] Comment on above: Performed By: #### 9 5925, 9116, 85308, 27234 #### [facility] of [address], [address] [place] [address] Software Development Project Manager: Terry Calvert MD #### 568 #### [facility]/[place] [address] [facility] [address] [place] Software Development Project Manager: Mahad Bethea M.D.,PhD Protein [Mass/Vol] 7.0 g/dL Normal 6.1-8.1 [facility] Comment on above: Performed By: #### 9 8735, 6399, 85765, 38001 #### [facility] of [address], [address] [place], [place] [address] Software Development Project Manager: Terry Calvert MD #### 568 #### [facility]/[address] [place], [place] Software Development Project Manager: Mahad Bethea M.D.,PhD Sodium [Moles/Vol] 139 mmol/L Normal 135-146 [facility] Comment on above: Performed By: #### 9 9575, 6399, 95170, 14992 #### [facility] of [address] Software Development Project Manager: Terry Calvert MD #### 568 #### [facility]/[address] [place], [place] Software Development Project Manager: Mahad Bethea M.D.,PhD Urea nitrogen [Mass/Vol] 8 mg/dL Normal 7-25 [facility] Comment on above: Performed By: #### 9 3765, 6367, 38280, 32177 #### [facility] of [address] Software Development Project Manager: Terry Calvert MD #### 568 #### [facility]/[address] [place], [place] Software Development Project Manager: Mahad Bethea M.D.,PhD INTRINSIC FACTOR BLOCKING AN TIBODYon 10-03-2024 INTRINSIC FACTOR BLOCKING ANTIBODY Negative Normal Negative [facility] Comment on above: Result Comment: For additional information, please refer to [email or web address]/IFAB (This link is being provided for informational/ educational purposes only.) Performed By: #### 9 2615, 6399, 64256, 60249 #### [facility] [address], [address] [place], [place] [address] Software Development Project Manager: Terry Calvert MD #### 568 #### [facility]/[address] [place], [place] Software Development Project Manager: Mahad Bethea M.D.,PhD LIPID PANEL WITH REFLEX TO D IRECT LDLon 10-03-2024 Cholesterol [Mass/Vol] 174 mg/dL Normal <200 [facility] Comment on above: Order Comment: FASTI NG:YES FASTING: YES Performed By: #### 9 2665, 6399, 25684, 25734 #### [facility] [address], [address] [place] [address] Software Development Project Manager: Terry Calvert MD #### 568 #### [facility]/[address] [place], [place] Software Development Project Manager: Mahad Bethea M.D.,PhD Cholesterol in HDL [Mass/Vol] 61 mg/dL Normal > OR = 50 [facility] Comment on above: Order Comment: FASTI NG:YES FASTING: YES Performed By: #### 9 2665, 6399, 26863, 93232 #### [facility] [address], [address] [place], [place] [address] Software Development Project Manager: Terry Calvert MD #### 568 #### [facility]/[place] [id number] [facility] [place] Software Development Project Manager: Mahad Bethea M.D.,PhD Cholesterol in LDL [Mass/Vol] 99 mg/dL Normal [facility] Comment on above: Order Comment: FASTI NG:YES FASTING: YES Result Comment: Refe rence range: <100 Desirable range <100 mg/dL for primary prevention; <70 mg/dL for patients with CHD or diabetic patients with > or = 2 CHD risk factors. LDL-C is now calculated using the Eric-Hendrix calculation, which is a validated novel method providing better accuracy than the Friedewald equation in the estimation of LDL-C. Eric NORMAN et al. MAHESH. 2013;310(19): 8382-5373 (http://education.Tensilica/faq/VTU689) Performed By: #### 9 9625, 6399, 14706, 46304 #### [facility] [address], [address] [place] [address] Software Development Project Manager: Terry Calvert MD #### 568 #### [facility]/[place] [id number] [facility] [address] [place] Software Development Project Manager: Mahad Bethea M.D.,PhD Cholesterol.total/Peg sterol in HDL [Mass ratio] 2.9 {ratio} Normal <5.0 [facility] Comment on above: Order Comment: FASTI NG:YES FASTING: YES Performed By: #### 9 6295, 4199, 61342, 07821 #### [facility] [address], [address] [place] [address] Software Development Project Manager: Terry Calvert MD #### 568 #### [facility] [address] [place] Software Development Project Manager: Mahad Bethea M.D.,PhD NON HDL CHOLESTEROL 113 mg/dL (calc) Normal <130 [facility] Comment on above: Order Comment: FASTI NG:YES FASTING: YES Result Comment: For patients with diabetes plus 1 major ASCVD risk factor, treating to a non-HDL-C goal of <100 mg/dL (LDL-C of <70 mg/dL) is considered a therapeutic option. Performed By: #### 9 0845, 2699, 64744, 67109 #### [facility] [address], [address] [place], [place] [id number] Software Development Project Manager: Terry Calvert MD #### 568 #### [facility] [address] [facility] [address] [place] Software Development Project Manager: Mahad Bethea M.D.,PhD Triglyceride [Mass/Vol] 57 mg/dL Normal <150 [facility] Comment on above: Order Comment: FASTI NG:YES FASTING: YES Performed By: #### 9 4765, 9337, 57059, 84755 #### [facility] [address], [address] [place], [place] [address] Software Development Project Manager: Terry Calvert MD #### 568 #### [facility]/[place] [id number] [facility] [place], [place] Software Development Project Manager: Mahad Bethea M.D.,PhD TSH W/REFLEX TO FT4on 2024 TSH W/REFLEX TO FT4 2.01 mIU/L Normal [facility] Comment on above: Result Comment: Refe rence Range > or = 20 Years 0.40-4.50 Ranges First trimester 0.26-2.66 Second trimester 0.55-2.73 Third trimester 0.43-2.91 Performed By: #### 9 7445, 4168, 47346, 43032 #### [facility] [address], [address] [place], [place] [address] Software Development Project Manager: Terry Calvert MD #### 568 #### [facility] [place], [place] Software Development Project Manager: Mahad Bethea M.D.,PhD VITAMIN B12on 10-03-2024 Cobalamin (Vitamin B12) [Mass/Vol] 363 pg/mL Normal 200-1100 [facility] Comment on above: Result Comment: Please Note: Although the reference range for vitamin B12 is 200-1100 pg/mL, it has been reported that between 5 and 10% of patients with values between 200 and 400 pg/mL may experience neuropsychiatric and hematologic abnormalities due to occult B12 deficiency; less than 1% of patients with values above 400 pg/mL will have symptoms. Performed By: #### 9 4535, 6946, 44876, 65355 #### [facility] [address], [address] [place], [place] [address] Software Development Project Manager: Terry Calvert MD #### 568 #### [facility] [address] [facility] [address] Software Development Project Manager: Mahad Bethea M.D.,PhD Gliadin peptide Ab.IgAon Gliadin peptide IgA IA Qn (S) 5.1 U/mL Normal <15.0 [facility] Comment on above: Result Comment: Fals e negative Deamidated Gliadin Peptide Antibody, IgA results can occur in patients already adhering to a gluten-free diet or patients with IgA deficiency. Tissue Transglutaminase Antibody, IgA is the preferred test for screening patients with suspected Celiac Disease. ??? Performed By: #### 6 3453-5 #### SUSANA Hernandez ([id number]) [facility] ([facility]) [address] [place] [address] Gliadin peptide Ab.IgGon Gliadin peptide IgG IA Qn (S) <0.56 Normal 0.00-4.99 [facility] Comment on above: Result Comment: INTE RPRETIVE INFORMATION: Deamidated Gliadin Peptide (DGP) Ab, IgG In individuals with low or deficient IgA, testing for tissue transglutaminase (tTG) and deamidated Gliadin (DGP) antibodies of the IgG isotype is performed. Positive tTG and/or DGP IgG antibody results indicate celiac disease; however, small intestinal biopsy is required to establish a diagnosis due to the lower accuracy of these markers, especially in patients without IgA deficiency. Performed By: [employer] [address] [place] [address] Linen Attendant: Santi Man MD, PhD CLIA Number: [id number] Performed By: #### 6 3459-2 #### [facility] ([facility]) ([id number]) [address] [place] [address] Tissue transglutaminase Ab.I gAon 06-13-2024 tTG IgA IA Qn (S) <1.0 Normal <15.0 [facility] Comment on above: Result Comment: Emma ac disease is unlikely. False negative Tissue Transglutaminase Antibody, IgA results can occur in approximately 10% of patients with celiac disease, patients already adhering to a gluten-free diet, or patients with IgA deficiency. Performed By: #### 4 6128-5 #### SUSANA Hernandez ([id number]) [facility] ([facility]) [address] [place], [place] [id number] Tissue transglutaminase Ab.I gGon 06-13-2024 tTG IgG IA Qn (S) <0.82 Normal 0.00-4.99 [facility] Comment on above: Result Comment: INTE RPRETIVE INFORMATION: Tissue Transglutaminase Ab, IgG In individuals with low or deficient IgA, testing for tissue transglutaminase (tTG) and deamidated Gliadin (DGP) antibodies of the IgG isotype is performed. Positive tTG and/or DGP IgG antibody results indicate celiac disease; however, small intestinal biopsy is required to establish a diagnosis due to the lower accuracy of these markers, especially in patients without IgA deficiency. Performed By: [employer] [address] [place] [address] Linen Attendant: Santi Man MD, PhD CLIA Number: [id number] Performed By: #### 5 6537-4 #### [facility] ([facility]) ([id number]) [address] [place] [address] CT ABDOMEN PELVIS WITH IV CO NTRAST ONLYon 05-13-2024 CT ABDOMEN PELVIS WITH IV CONTRAST ONLY EXAMINATION: CT ABDOMEN PELVIS WITH IV CONTRAST ONLY HISTORY: ORDERING SYSTEM PROVIDED HISTORY: Periumbilical abdominal pain post fall, TECHNOLOGIST PROVIDED HISTORY: Injury/Trauma Reason for exam: pain in mid abdomen after falling down a flight of stairs 2 days ago Encounter Type: Initial Mechanism of injury: mechanical ORDERING SYSTEM PROVIDED DIAGNOSIS CODES: COMPARISON: None TECHNIQUE: CT examination of the abdomen and pelvis following the administration of intravenous contrast. Coronal and sagittal reformations were performed. Dose reduction techniques were achieved by using automated exposure control and/or adjustment of mA and/or kV according to patient size and/or use of iterative reconstruction technique. CONTRAST: IOPAMIDOL 370 MG IODINE/ML (76 %) INTRAVENOUS SOLUTION - 75 mL, FINDINGS: LOWER CHEST: Normal. ABDOMEN: Liver: Normal. Bile ducts: Normal caliber. Gallbladder: Prior cholecystectomy. Pancreas: Normal. Spleen: Normal. Adrenals: Normal. Kidneys: Symmetric enhancement without hydronephrosis. PELVIS: Reproductive organs: Partially collapsed, peripherally enhancing right ovarian cystic lesion, measures 2.3 x 2.3 cm. Suggestive of involuting right ovarian follicle. Ureters: Normal. Bladder: Decompressed OTHER ABDOMEN AND PELVIS: Bowel: Mild liquid stool scattered throughout the cecum, descending colon and sigmoid colon with mild wall thickening. Moderate long segment wall thickening of the distal ileum extending to the terminal ileum. No appendicitis. Peritoneum: No free intraperitoneal air. Small amount of free fluid in the posterior cul-de-sac Vessels: Normal. Lymph nodes: No enlarged lymph nodes. Abdominal wall: Small fat containing umbilical hernia. Osseous structures: No destructive lesions. IMPRESSION: Diffuse long segment thickening of the distal ileum with thickening of the cecum, descending and sigmoid colon. No bowel obstruction. Findings favored to represent infectious/inflammato ry enterocolitis. Underlying bowel trauma felt less likely. No appendicitis. Probable involuting right ovarian follicle with small amount of free fluid in the pelvis. No pneumoperitoneum. Prior cholecystectomy. / Workstation ID: [id number] Dictated by: EDYTA GREEN on MonMay 13, 2024 10:03:07 AM EST Transcribed by: SHWETA LUNA on MonMay 13, 2024 10:07:18 AM EST Finalized by: EDYTA GREEN on MonMay 13, 2024 9:02:45 PM EST Normal [facility] Comment on above: Order Comment: Injur y/Trauma or Illness?:Injury/Trauma How long have you had these symptoms (acute/chronic)?:Acute Reason for exam?:pain in mid abdomen after falling down a flight of stairs 2 days ago Type of Exam?:Initial Mechanism of injury?:mechanical ED Prov Noteon 05-13-2024 ED Prov Note ED PROVIDER NOTE [facility] EMERGENCY DEPARTMENT NAME: Hanh Rm AGE: 29 y.o. : 1995 VISIT DATE: 05/13/2024 CSN: [id number] PCP: Hanh Madrigal DO Chief Complaint Patient presents with Fall 29-year-old female patient presents ER for evaluation of periumbilical abdominal pain. Patient states had a fall on Monday, later that evening she developed periumbilical pain, nonradiating. Currently 4 out of 10. Associated with nausea, no fevers, chest pain or difficulty breathing, no change in bowel or bladder. Past Medical History: Diagnosis Date Anemia Takes oral iron supplements Anxiety Calculus of gallbladder with acute cholecystitis 08/2019 required cholecystectomy Mastitis 09/2019 Preeclampsia Past Surgical History: Procedure Laterality Date CHOLECYSTECTOMY LAPAROSCOPIC N/A 08/27/2019 acute cholecystitis due to gallstones......Dr. 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 levonorgestreL (MIRENA) 20 mcg/24 hours (6 yrs) 52 mg IUD 1 each by Intrauterine route once . ondansetron (ZOFRAN-ODT) 4 MG disintegrating tablet Dissolve 1 (one) tablet (4 mg total) on top of tongue every 8 (eight) hours as needed for nausea . prochlorperazine (Compazine) 5 MG tablet Take 1 (one) tablet (5 mg total) by mouth every 6 (six) hours as needed for nausea . sertraline (ZOLOFT) 100 MG tablet Take 1 (one) tablet (100 mg total) by mouth daily . Allergies Allergen Reactions Lactose Macrobid [Nitrofurantoin Monohyd/M-Cryst] Hives Nickel Sulfa (Sulfonamide Antibiotics) Hives Review of Systems All other systems reviewed and are negative. Patient Vitals for the past 24 hrs: BP Temp Temp src Pulse Resp SpO2 Height Weight 05/13/24 0904 124/86 98.7 degrees F (37.1 degrees C) Oral 87 16 98 % 5' 3 70.3 kg (155 lb) Physical Exam Vitals and nursing note reviewed. Constitutional: Appearance: Normal appearance. HENT: Head: Normocephalic and atraumatic. Right Ear: External ear normal. Left Ear: External ear normal. Nose: Nose normal. Mouth/Throat: Mouth: Mucous membranes are moist. Pharynx: Oropharynx is clear. Eyes: Extraocular Movements: Extraocular movements intact. Conjunctiva/sclera: Conjunctivae normal. Pupils: Pupils are equal, round, and reactive to light. Cardiovascular: Rate and Rhythm: Normal rate and regular rhythm. Musculoskeletal: General: Normal range of motion. Cervical back: Normal range of motion and neck supple. Pulmonary: Effort: Pulmonary effort is normal. Breath sounds: Normal breath sounds. Abdominal: General: Abdomen is flat. Bowel sounds are normal. Palpations: Abdomen is soft. Comments: Periumbilical abdominal pain Neurological: General: No focal deficit present. Mental Status: She is alert and oriented to person, place, and time. Mental status is at baseline. Psychiatric: Mood and Affect: Mood normal. Thought Content: Thought content normal. Laboratory & Radiographic Imaging (if done): No results found for this visit on 05/13/24. CT Abdomen Pelvis With IV Contrast Only (Results Pending) Procedures Medical Decision Making Patient's symptoms not typical for emergent causes of abdominal pain such as, but not limited to, appendicitis, abdominal aortic aneurysm, surgical biliary disease, pancreatitis, SBO, mesenteric ischemia, serious intra-abdominal bacterial illness. Presentation also not typical of gynecologic emergencies such as TOA, Ovarian Torsion, PID. Labs no leukocytosis anemia or electrolyte dysfunction, CT demonstrates findings of enteritis and, ovarian cyst, no other acute emergent pathology identified Disposition: Patient will be discharged with strict return precautions and follow up with primary MD within 12-24 hours for further evaluation. Patient understands that this still may have an early presentation of an emergent medical condition such as appendicitis that will require a recheck. The patient has been informed that they may have pre-hypertension or hypertension based on a blood pressure reading in the Emergency Department. I recomme (more content not included)... Normal [facility] POC BASIC METABOLIC PANEL - Martita 05-13-2024 Chloride [Moles/Vol] 106 mmol/L Normal 98-108 [facility] Comment on above: Order Comment: [facility] has implemented the eGFR calculation approach that does not have a coefficient for race that conforms to the NKF-ASN Task Force Recommendations. CO2 [Moles/Vol] 24 mmol/L Normal 21-32 [facility] Comment on above: Order Comment: [facility] has implemented the eGFR calculation approach that does not have a coefficient for race that conforms to the NKF-ASN Task Force Recommendations. Creatinine [Mass/Vol] 0.78 mg/dL Normal 0.40-1.10 [facility] Comment on above: Order Comment: [facility] has implemented the eGFR calculation approach that does not have a coefficient for race that conforms to the NKF-ASN Task Force Recommendations. Glucose [Mass/Vol] 88 mg/dL Normal 65-99 [facility] Comment on above: Order Comment: [facility] has implemented the eGFR calculation approach that does not have a coefficient for race that conforms to the NKF-ASN Task Force Recommendations. POC GFR 106 mL/min/1.73 m2 Normal >=60 [facility] Comment on above: Order Comment: [facility] has implemented the eGFR calculation approach that does not have a coefficient for race that conforms to the NKF-ASN Task Force Recommendations. Result Comment: Angie mated GFR was calculated using the 2020 CKD-EPI creatinine equation. POC IONIZED CALCIUM 4.6 mg/dL Normal 4.5-5.3 [facility] Comment on above: Order Comment: [facility] has implemented the eGFR calculation approach that does not have a coefficient for race that conforms to the NKF-ASN Task Force Recommendations. Potassium [Moles/Vol] 3.8 mmol/L Normal 3.5-5.1 [facility] Comment on above: Order Comment: [facility] has implemented the eGFR calculation approach that does not have a coefficient for race that conforms to the NKF-ASN Task Force Recommendations. Sodium [Moles/Vol] 142 mmol/L Normal 135-145 [facility] Comment on above: Order Comment: [facility] has implemented the eGFR calculation approach that does not have a coefficient for race that conforms to the NKF-ASN Task Force Recommendations. Urea nitrogen [Mass/Vol] 14 mg/dL Normal 8-25 [facility] Comment on above: Order Comment: [facility] has implemented the eGFR calculation approach that does not have a coefficient for race that conforms to the NKF-ASN Task Force Recommendations. POC CBC AND DIFFERENTIALon 07-13-2023 BASOPHILS ABSOLUTE COUNT 0.01 K/mcL Normal 0.00-0.30 [facility] Basophils/100 WBC (Bld) 0.2 % Normal [facility] Eosinophils (Bld) [#/Vol] 0.11 10*3/uL Normal 0.00-0.50 [facility] Eosinophils/100 WBC (Bld) 1.9 % Normal [facility] Erythrocyte distribution width (RBC) [Ratio] 12.1 % Normal 11.6-14.8 [facility] Hematocrit (Bld) [Volume fraction] 43.5 % Normal 36.0-46.0 [facility] Hemoglobin (Bld) [Mass/Vol] 14.6 g/dL Normal 12.0-16.0 [facility] IG ABSOLUTE 0.00 K/mcL Normal 0.00-0.30 [facility] IG PERCENT 0.00 % Normal [facility] Comment on above: Result Comment: The IG parameter is the percentage of metamyelocytes, myelocytes and promyelocytes. An immature granulocyte count (IG) of 1% or more suggests the possibility of infection, an IG count of 3% is very likely related to an infection. Lymphocytes (Bld) [#/Vol] 1.88 10*3/uL Normal 0.90-4.00 [facility] Lymphocytes/100 WBC (Bld) 32.5 % Normal [facility] MCH (RBC) [Entitic mass] 29.9 pg Normal 26.0-34.0 [facility] MCV (RBC) [Entitic vol] 89.1 fL Normal 80.0-100.0 [facility] MEAN CORPUSCULAR HEMOGLOBIN CONC 33.6 g/dL Normal 31.0-37.0 [facility] Monocytes (Bld) [#/Vol] 0.51 10*3/uL Normal 0.30-0.90 [facility] Monocytes/100 WBC (Bld) 8.8 % Normal [facility] NEUTROPHILS ABSOLUTE COUNT 3.28 K/mcL Normal 1.70-7.00 [facility] Neutrophils/100 WBC (Bld) 56.6 % Normal [facility] Platelet mean volume (Bld) [Entitic vol] 10.9 fL Normal 9.4-12.4 [facility] Platelets (Bld) [#/Vol] 155 10*3/uL Normal 150-400 [facility] RBC (Bld) [#/Vol] 4.88 10*6/uL Normal 4.00-5.20 [facility] WBC (Bld) [#/Vol] 5.79 10*3/uL Normal 4.50-11.00 [facility] POC LIVER PANEL PLUS [facility] 05-13-2024 Albumin [Mass/Vol] 4.3 g/dL Normal 3.2-5.2 [facility] ALP [Catalytic activity/Vol] 75 U/L Normal 40-140 [facility] ALT [Catalytic activity/Vol] 17 U/L Normal 0-40 [facility] Amylase [Catalytic activity/Vol] 65 U/L Normal 25-115 [facility] Amylase [Catalytic activity/Vol] 12 U/L Normal 7-33 [facility] AST [Catalytic activity/Vol] 21 U/L Normal 0-45 [facility] Bilirubin [Mass/Vol] 0.9 mg/dL Normal 0.0-1.3 [facility] Protein [Mass/Vol] 7.7 g/dL Normal 6.0-8.0 [facility] POC , URINE - [facility] 05-13-2024 Beta HCG ( test) Ql (U) Negative Normal Negative [facility] Comment on above: Order Comment: Negat zachary: Dilute urine specimens, as indicated by a low specific gravity (<1.010) may not contain representitive levels of hCG. If is still suspected, a serum test or repeat urine test using a first morning urine specimen should be considered. POC URINALYSIS DIPSTICK,AUTO - [facility] 05-13-2024 POC BILIRUBIN, URINE Small Abnormal Negative [facility] POC BLOOD, URINE Trace-intact Abnormal Negative [facility] POC GLUCOSE, URINE Negative Normal Negative [facility] POC KETONES, URINE Trace Abnormal Negative [facility] POC LEUKOCYTE ESTERASE, URINE Negative Normal Negative [facility] POC NITRITE, URINE Negative Normal Negative [facility] POC PH, URINE 5.5 Normal 5.0-7.0 [facility] POC PROTEIN, URINE Trace Abnormal Negative [facility] POC SPECIFIC GRAVITY >= High 1.005-1.025 [facility] POC UROBILINOGEN 0.2 mg/dL Normal < 2.0 [facility] [place] 04-26-2024 Cobalamin (Vitamin B12) [Mass/Vol] 293 pg/mL Normal 211-911 [facility] Comment on above: Performed By: #### 2 132-9 #### DIEGO GARCIA ([id number]) [facility] ([facility]) [facility] [place] [address] Lipid 1996 panelon 4 Cholesterol [Mass/Vol] 201 mg/dL High 0-199 Un [facility] Comment on above: Result Comment: Age Desirable Borderline High High 0-19 Y 0 - 169 170 - 199 >/= 200 20-24 Y 0 - 189 190 - 224 >/= 225 >24 Y 0 - 199 200 - 239 >/= 240 All ranges are based on fasting samples. Specific therapeutic targets will vary based on patient-specific cardiac risk. Pediatric guidelines reference:Pediatrics 2011, 128(S5).Adult guidelines reference: NCEP ATPIII Guidelines,MAHESH 2001, 258:2486-97 Venipuncture immediately after or during the administration of Metamizole may lead to falsely low results. Testing should be performed immediately prior to Metamizole dosing. Performed By: #### 2 4331-1 #### DIEGO GARCIA ([id number]) [facility] ([facility]) [address] [place] [address] Cholesterol in HDL [Mass/Vol] 69.0 mg/dL Normal [facility] Comment on above: Result Comment: Age Very Low Low Normal High 0-19 Y < 35 < 40 40-45 ---- 20-24 Y ---- < 40 >45 ---- >24 Y ---- < 40 40-60 >60 Performed By: #### 2 4331-1 #### DIEGO GARCIA ([id number]) [facility] ([facility]) [facility] [place] [address] Cholesterol in LDL [Mass/Vol] 120 mg/dL High <=99 [facility] Comment on above: Result Comment: Near Borderline AGE Desirable Optimal High High Very High 0-19 Y 0 - 109 --- 110-129 >/= 130 ---- 20-24 Y 0 - 119 --- 120-159 >/= 160 ---- >24 Y 0 - 99 100-129 130-159 160-189 >/=190 Performed By: #### 2 4331-1 #### DIEGO GARCIA ([id number]) [facility] ([facility]) [facility] [place] [address] Cholesterol in VLDL [Mass/Vol] 12 mg/dL Normal 0-40 [facility] Comment on above: Performed By: #### 2 4331-1 #### DIEGO GARCIA ([id number]) [facility] ([facility]) [address] [place] [address] CHOLESTEROL/HDL RATIO 2.9 Normal [facility] Comment on above: Result Comment: Ref Values Desirable < 3.4 High Risk > 5.0 Performed By: #### 2 4331-1 #### DIEGO GARCIA ([id number]) [facility] ([facility]) [address] [place] [address] NON HDL CHOLESTEROL 132 mg/dL Normal 0-149 [facility] Comment on above: Result Comment: Age Desirable Borderline High High Very High 0-19 Y 0 - 119 120 - 144 >/= 145 >/= 160 20-24 Y 0 - 149 150 - 189 >/= 190 ---- >24 Y 30 mg/dL above LDL Cholesterol goal Performed By: #### 2 4331-1 #### DIEGO GARCIA ([id number]) [facility] ([facility]) [address] [place] [address] [id number] Triglyceride [Mass/Vol] 62 mg/dL Normal 0-149 U [facility] Comment on above: Result Comment: Age Desirable Borderline High High Very High 0 D-90 D 19 - 174 ---- ---- ---- 91 D- 9 Y 0 - 74 75 - 99 >/= 100 ---- 10-19 Y 0 - 89 90 - 129 >/= 130 ---- 20-24 Y 0 - 114 115 - 149 >/= 150 ---- >24 Y 0 - 149 150 - 199 200- 499 >/= 500 Venipuncture immediately after or during the administration of Metamizole may lead to falsely low results. Testing should be performed immediately prior to Metamizole dosing. Performed By: #### 2 4331-1 #### DIEGO GARCIA ([id number]) [facility] ([facility]) [address] [place] [address] Shower Enclosure Installer Office Visit Reporton 12-29-2023 Shower Enclosure Installer Office Visit Report [facility] [address] [place] [address] OFFICE VISIT Date of Service: 12/29/23 MR#: [id number] Acct: [id number] Name: HANH DOLAN Rep #: [id number] : 1995 Provider: JONN fox Age/Sex: 28/F Location: [facility] Status: Signed Intake Vital Signs 11/16/23 21:28 11/24/23 08:03 12/29/23 16:16 Height 5 ft 3 in 5 ft 3 in 5 ft 3 in Weight: 156 lb 6 oz BMI 27.6 BP 118/74 Intake Visit Reasons: visit (obstetrics) Chief Complaint: pt here for 6 week visit. 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: No Is patient in pain?: No Allergies nitrofurantoin (From Macrobid) Allergy (Unknown, Verified 12/29/23 16:17) Hives nickel Allergy (Verified 12/29/23 16:17) Rash Sulfa (Sulfonamide Antibiotics) Allergy (Verified 12/29/23 16:17) Hives Medications ???Medication ???Instructions ???Recorded ???Confirmed ???Type docosahexaenoic acid 200 mg 200 mg PO DAILY 10/30/23 12/29/23 History capsule ( DHA) norethindrone (contraceptive) 0.35 0.35 mg PO DAILY #84 tabs 12/29/23 12/29/23 Rx mg tablet (Pilar) : Yes PFSH Medical History Preeclampsia, severe Large for dates affecting management of mother (spontaneous vaginal delivery) Retained placenta Abnormal Pap smear of cervix History of pre-term labor Retained placenta or membranes Headache Ectopic Pre-eclampsia Herpes genitalis Migraines Anemia affecting Anxiety Surgical History [place] teeth removed Hx of cholecystectomy Family History Father Squamous cell carcinoma Mother Hyperlipidemia Social History Smoking Status: Never smoker alcohol intake: never substance use type: does not use caffeine: Yes what type of physical activity do you participate in: none seatbelt use: always do you feel safe at home: Yes additional social history: Boyfriend-Mendoza History 4 Elective abortions Hx Para 3 Spontaneous abortions Hx # Term Pregnancies Ectopic pregnancies Hx # Pregnancies Multiple births # of living children 3 Past Pregnancies Del. Date Name GA/Weeks Outcome Route Bth Weight Infant Gen Labor Lgth Anesthesia Del Locatn Provider FOB 07/24/15 [place] 39 live - full term 6lbs 9oz Female epidural [facility] Dr. Edna Brambila 07/08/19 [place] 37 live - full term 8lbs 6oz Male [facility] Dr. Edna Bethea Sven 11/17/23 [place] 36 live - 6lbs 15oz Female [facility] [place] Delivery Date: 07/24/15 Last Updated by: Lissa Ngo No issues during or delivery Delivery Date: 07/08/19 Last Updated by: Lissa Ngo Went into pre-term labor at 36 weeks but was able to stop labor. Developed pre-eclampsia and was induced at 37 weeks. Retained placenta, curettage immediately after delivery Delivery Date: 11/17/23 Last Updated by: Lissa Ngo COVID, LGA, severe pre-e Depression Screen PHQ-2/9 PHQ-2 Over the last 2 weeks, how often have you been bothered by any of the following problems? 1. Little interest or pleasure in doing things: not at all 2. Feeling down, depressed, or hopeless: not at all Total score: 0 Post HPI Routine Follow-Up: Details: HANH DOLAN is a 28 year old who presents for her post visit. Feeding: Breast Menses resumed: No Chancellor since delivery: No Emotional Support: Yes Last Pap:: 2021 Control Method: POP ROS Const Denies excessive sweating Card Reports system reviewed and no additional complaints, except as documented, Denies chest pain, Denies chest pain with activity, Denies edema, Denies leg edema and Denies palpitations Resp Reports system reviewed and no additional complaints, except as documented GI Reports system reviewed and no additional complaints, except as documented, Denies abdominal pain and Denies bloating Reports system reviewed and no additional complaints, except as documented, Denies difficulty voiding, Denies dysuria, Denies urinary frequency, Denies urinary incontinence, Denies urinary hesitancy, Denies urinary urgency, Denies vaginal discharge and Denies vaginal odor Musc Reports system reviewed and no additional complaints, except as documented Skin/Breast Reports system reviewed and no additional complaints, except as documented Neuro Yes system reviewed and no additional complaints, except as documented Psych Reports system reviewed and no additional complaints, except as documented Endo Re (more content not included)... [facility] - Chemistry and C hemistry - challengeon 10-30-2023 Glucose Ql (U) Negative [facility] - Urinalysison Protein Ql (U) Negative [facility] - Chemistry and C hemistry - challengeon 10-18-2023 Glucose Ql (U) Negative [facility] - Urinalysison Protein Ql (U) Negative [facility] - Chemistry and C hemistry - challengeon 10-04-2023 Glucose Ql (U) Negative [facility] - Urinalysison Protein Ql (U) Negative [facility] Cobalaminson 09-30-2023 Cobalamin (Vitamin B12) [Mass/Vol] 162 pg/mL Low 211-911 [facility] Comment on above: Performed By: #### 2 132-9 #### DIEGO GARCIA ([id number]) [facility] ([facility]) [address] [place] [address] Comprehensive metabolic 2000 panelon 09-30-2023 Albumin BCP dye [Mass/Vol] 3.4 g/dL Normal 3.4-5.0 [facility] Comment on above: Performed By: #### 2 4323-8 #### DIEGO GARCIA ([id number]) [facility] ([facility]) [address] [place] [address] ALP [Catalytic activity/Vol] 96 U/L Normal 33-110 [facility] Comment on above: Performed By: #### 2 4323-8 #### DIEGO GARCIA ([id number]) [facility] ([facility]) [address] [place] [address] 18464 ALT With P-5'-P [Catalytic activity/Vol] 11 U/L Normal 7-45 [facility] Comment on above: Result Comment: Rosalva ents treated with Sulfasalazine may generate falsely decreased results for ALT. Performed By: #### 2 4323-8 #### DIEGO GARCIA ([id number]) [facility] ([facility]) [facility] [place] [address] Anion gap [Moles/Vol] 11 mmol/L Normal 10-20 [facility] Comment on above: Performed By: #### 2 432-8 #### DIEGO GARCIA ([id number]) [facility] ([facility]) [address] [place] [address] AST With P-5'-P [Catalytic activity/Vol] 13 U/L Normal 9-39 [facility] Comment on above: Performed By: #### 2 4322-8 #### DIEGO GARCIA ([id number]) [facility] ([facility]) [address] [place] [address] Bilirubin [Mass/Vol] 0.4 mg/dL Normal 0.0-1.2 [facility] Comment on above: Performed By: #### 2 4323-8 #### DIEGO GARCIA ([id number]) [facility] ([facility]) [address] [place] [address] Calcium [Mass/Vol] 8.9 mg/dL Normal 8.6-10.3 [facility] Comment on above: Performed By: #### 2 4323-8 #### DIEGO GARCIA ([id number]) [facility] ([facility]) [address] [place] [address] Chloride [Moles/Vol] 106 mmol/L Normal 98-107 [facility] Comment on above: Performed By: #### 2 4323-8 #### DIEGO GARCIA ([id number]) [facility] ([facility]) [facility] [place] [address] CO2 [Moles/Vol] 26 mmol/L Normal 21-32 [facility] Comment on above: Performed By: #### 2 4323-8 #### DIEGO GARCIA ([id number]) [facility] ([facility]) [address] [place] [address] Creatinine [Mass/Vol] 0.55 mg/dL Normal 0.50-1.05 [facility] Comment on above: Performed By: #### 2 4323-8 #### DIEGO GARCIA ([id number]) [facility] ([facility]) [address] [place] [address] GFR/1.73 sq M.predicted MDRD (S/P/Bld) [Vol rate/Area] mL/min/{1.73_m2} Normal >60 [facility] Comment on above: Result Comment: Calc ulations of estimated GFR are performed using the 2020 CKD-EPI Study Refit equation without the race variable for the IDMS-Traceable creatinine methods. https://jasn.asnjournals.org/content/early//ASN.2020 495336 Performed By: #### 2 4323-8 #### DIEGO GARCIA ([id number]) [facility] ([facility]) [address] [place] [address] Glucose [Mass/Vol] 86 mg/dL Normal 74-99 [facility] Comment on above: Performed By: #### 2 4323-8 #### DIEGO GARCIA ([id number]) [facility] ([facility]) [address] [place] [address] Potassium [Moles/Vol] 3.6 mmol/L Normal 3.5-5.3 [facility] Comment on above: Performed By: #### 2 4323-8 #### DIEGO GARCIA ([id number]) [facility] ([facility]) [address] [place] [address] Protein [Mass/Vol] 5.9 g/dL Low 6.4-8.2 [facility] Comment on above: Performed By: #### 2 4323-8 #### DIEGO GARCIA ([id number]) [facility] ([facility]) [address] [place] [address] Sodium [Moles/Vol] 139 mmol/L Normal 136-145 [facility] Comment on above: Performed By: #### 2 4323-8 #### DIEGO GARCIA ([id number]) [facility] ([facility]) [address] [place] [address] Urea nitrogen [Mass/Vol] 5 mg/dL Low 6-23 [facility] Comment on above: Performed By: #### 2 4323-8 #### DIEGO GARCIA ([id number]) [facility] ([facility]) [address] [place] [address] HbA1c (Bld) [Mass fraction]o n 09-30-2023 Average glucose Estimated from glycated hemoglobin (Bld) [Mass/Vol] 91 mg/dL Normal Not Established [facility] Comment on above: Order Comment: Diagn osis of Diabetes-Adults Non-Diabetic: < or = 5.6% Increased risk for developing diabetes: 5.7-6.4% Diagnostic of diabetes: > or = 6.5% Monitoring of Diabetes Age (y)....................... Therapeutic Goal (%) Adults: >18.........................<7.0 Pediatrics: 13-18...................<7.5 Pediatrics: 7-12....................<8.0 Pediatrics: 0-6..................... 7.5-8.5 [place] [employer]. Diabetes Care 33(S1), Jul 2009 Performed By: #### 4 548-4 #### SUSANA Hernandez ([id number]) [facility] ([facility]) [address] [place] [address] Hemoglobin A1c/Hemoglobin.to davdi 09-30-2023 HbA1c (Bld) [Mass fraction] 4.8 % Normal see below [facility] Comment on above: Order Comment: Diagn osis of Diabetes-Adults Non-Diabetic: < or = 5.6% Increased risk for developing diabetes: 5.7-6.4% Diagnostic of diabetes: > or = 6.5% Monitoring of Diabetes Age (y)....................... Therapeutic Goal (%) Adults: >18.........................<7.0 Pediatrics: 13-18...................<7.5 Pediatrics: 7-12....................<8.0 Pediatrics: 0-6..................... 7.5-8.5 [place] [employer]. Diabetes Care 33(S1), Jul 2009 Performed By: #### 4 548-4 #### SUSANA Hernandez ([id number]) [facility] ([facility]) [address] [place] [address] Lipid 1996 panelon 4 Cholesterol [Mass/Vol] 318 mg/dL High 0-199 Un [facility] Comment on above: Result Comment: Age Desirable Borderline High High 0-19 Y 0 - 169 170 - 199 >/= 200 20-24 Y 0 - 189 190 - 224 >/= 225 >24 Y 0 - 199 200 - 239 >/= 240 All ranges are based on fasting samples. Specific therapeutic targets will vary based on patient-specific cardiac risk. Pediatric guidelines reference:Pediatrics 2011, 128(S5).Adult guidelines reference: NCEP ATPIII Guidelines,MAHESH 2001, 258:2486-97 Venipuncture immediately after or during the administration of Metamizole may lead to falsely low results. Testing should be performed immediately prior to Metamizole dosing. Performed By: #### 2 4331-1 #### DIEGO GARCIA ([id number]) [facility] ([facility]) [facility] [place] [address] Cholesterol in HDL [Mass/Vol] 58.0 mg/dL Normal [facility] Comment on above: Result Comment: Age Very Low Low Normal High 0-19 Y < 35 < 40 40-45 ---- 20-24 Y ---- < 40 >45 ---- >24 Y ---- < 40 40-60 >60 Performed By: #### 2 4331-1 #### DIEGO GARCIA ([id number]) [facility] ([facility]) [facility] [place] [address] Cholesterol in LDL [Mass/Vol] 195 mg/dL High <=99 [facility] Comment on above: Result Comment: Near Borderline AGE Desirable Optimal High High Very High 0-19 Y 0 - 109 --- 110-129 >/= 130 ---- 20-24 Y 0 - 119 --- 120-159 >/= 160 ---- >24 Y 0 - 99 100-129 130-159 160-189 >/=190 Performed By: #### 2 4331-1 #### DIEGO GARCIA ([id number]) [facility] ([facility]) [address] [place] [address] Cholesterol in VLDL [Mass/Vol] 65 mg/dL High 0-40 [facility] Comment on above: Performed By: #### 2 4331-1 #### DIEGO GARCIA ([id number]) [facility] ([facility]) [address] [place] [address]6 CHOLESTEROL/HDL RATIO 5.5 Normal [facility] Comment on above: Result Comment: Ref Values Desirable < 3.4 High Risk > 5.0 Performed By: #### 2 4331-1 #### DIEGO GARCIA ([id number]) [facility] ([facility]) [address] [place] [address]75 NON HDL CHOLESTEROL 260 mg/dL High 0-149 Un[facility] Comment on above: Result Comment: Age Desirable Borderline High High Very High 0-19 Y 0 - 119 120 - 144 >/= 145 >/= 160 20-24 Y 0 - 149 150 - 189 >/= 190 ---- >24 Y 30 mg/dL above LDL Cholesterol goal Performed By: #### 2 4331-1 #### DIEGO GARCIA ([id number]) [facility] ([facility]) [address] [place] [address] Triglyceride [Mass/Vol] 326 mg/dL High 0-149 U [facility] Comment on above: Result Comment: Age Desirable Borderline High High Very High 0 D-90 D 19 - 174 ---- ---- ---- 91 D- 9 Y 0 - 74 75 - 99 >/= 100 ---- 10-19 Y 0 - 89 90 - 129 >/= 130 ---- 20-24 Y 0 - 114 115 - 149 >/= 150 ---- >24 Y 0 - 149 150 - 199 200- 499 >/= 500 Venipuncture immediately after or during the administration of Metamizole may lead to falsely low results. Testing should be performed immediately prior to Metamizole dosing. Performed By: #### 2 4331-1 #### DIEGO GARCIA ([id number]) [facility] ([facility]) [facility] [place] [address] Absolute lymphocyte countOrd ered By: Concepcion Kiser on 09-18-2023 Lymphocytes Auto (Unsp spec) [#/Vol] 1.33 10*3/uL 0.83-4.51 [facility] Automated lymphocyte count a s percentage of total leukocytesOrdered By: Concepcion Kiser on 09-18-2023 Lymphocytes/100 WBC Auto (Unsp spec) 17.1 % 19-41 [facility] Basophil percentageOrdered B y: Concepcion Kiser on 09-18-2023 Basophils/100 WBC (Bld) 0.3 % 0-1 [facility] Eosinophils/100 WBC (Bld) 1.0 % 0-5 [facility] Hemoglobin (Bld) [Mass/Vol] 11.0 g/dL 12.0-15.0 [facility] Monocytes/100 WBC (Bld) 6.2 % 0-10 [facility] Neutrophils (Bld) [#/Vol] 5.7 10*3/uL 2.0-7.7 [facility] Neutrophils/100 WBC (Bld) 74.0 % 47-70 [facility] WBC (Bld) [#/Vol] 7.8 10*3/uL 4.4-11.0 [facility] Determination of erythrocyte mean corpuscular volume (MCV)Ordered By: Concepcion Kiser on 09-18-2023 MCV (RBC) [Entitic vol] 90.9 fL 81-99 [facility] Erythrocyte distribution wid th ratioOrdered By: Concepcion Kiser on 09-18-2023 Erythrocyte distribution width (RBC) [Ratio] 12.8 % 11.6-14.6 [facility] Erythrocyte distribution wid th standard deviationOrdered By: Concepcion Kiser on 09-18-2023 Erythrocyte distribution width (RBC) [Entitic vol] 42.0 fL 35.1-43.9 [facility] Gestational diabetes screen 1-hour screen with 50g oral glucose loadOrdered By: Concepcion Kiser on 09-18-2023 Glucose 1 Hr post 50 g glucose PO [Mass/Vol] 109 mg/dL 70-140 [facility] HIV 1 and HIV-2 antibody ass ay with HIV-1 p24 antigen detectionOrdered By: Concepcion Kiser on 09-18-2023 HIV 1+2 Ab+HIV1 p24 Ag IA Ql Non-Reactive Nonreactive [facility] Hematocrit Auto (Bld) [Volum e fraction]Ordered By: Concepcion Kiser on 09-18-2023 Hematocrit (Bld) [Volume fraction] 32.8 % 37-47 [facility] Immature granulocytes/100 WB C Auto (Bld)Ordered By: Concepcion Kiser on 09-18-2023 Immature granulocytes/100 WBC (Bld) 1.400 % 0.0-0.9 [facility] Comment on above: IG% - Immature Granu locytes (promyelocytes, myelocytes and metamyelocytes) > 1% indicates that a LEFT SHIFT is Present. Laboratory - Chemistry and C hemistry - challengeon 09-18-2023 Glucose Ql (U) Negative [facility] - Hematology and Cell countsOrdered By: Concepcion Kiser on 09-18-2023 MCH (RBC) [Entitic mass] 30.5 pg 27.0-32.0 [facility] MCHC (RBC) [Mass/Vol] 33.5 g/dL 32-36 [facility] Nucleated RBC/100 WBC (Bld) [Ratio] 0 % 0-5 [facility] Platelet mean volume (Bld) [Entitic vol] 11.5 fL 6.2-12.0 [facility] Platelets (Bld) [#/Vol] 171 10*3/uL 150-450 [facility] Laboratory - Urinalysison Protein Ql (U) Negative [facility] RBC Auto (Bld) [#/Vol]Ordere d By: Concepcion Kiser on 09-18-2023 RBC (Bld) [#/Vol] 3.61 10*6/uL 4.2-5.4 [facility] Serum Treponema species anti body detectionOrdered By: Concepcion Kiser on 09-18-2023 Treponema sp Ab Ql (S) Non-Reactive [facility] Laboratory - Chemistry and C hemistry - challengeon 08-21-2023 Glucose Ql (U) Negative [facility] Laboratory - Urinalysison Protein Ql (U) Negative [facility] Laboratory - Chemistry and C hemistry - challengeon 07-28-2023 Glucose Ql (U) Negative [facility] - Urinalysison Protein Ql (U) Negative [facility] Laboratory - Chemistry and C hemistry - challengeon 06-28-2023 Glucose Ql (U) Negative [facility] - Urinalysison Protein Ql (U) Negative [facility] No Panel InformationOrdered By: Mariely Arriaga on 05-22-2023 Miscellaneous Test Comment MAILED SPECIMEN [facility] Absolute lymphocyte countOrd ered By: Mariely Arriaga on 05-20-2023 Lymphocytes Auto (Unsp spec) [#/Vol] 1.64 10*3/uL 0.83-4.51 [facility] Basophil percentageOrdered B y: Mariely Arriaga on 05-20-2023 Basophils/100 WBC (Bld) 0.3 % 0-1 [facility] Bilirubin [Mass/Vol] 0.40 mg/dL 0.20-1.00 [facility] Comment on above: For patients on eltr ombopag therapy, use of Dimension [place] TBIL is not recommended. Chloride [Moles/Vol] 107 mmol/L 98-107 [facility] Eosinophils/100 WBC (Bld) 0.9 % 0-5 [facility] Glucose [Mass/Vol] 88 mg/dL 74-106 [facility] Neutrophils (Bld) [#/Vol] 4.3 10*3/uL 2.0-7.7 [facility] Neutrophils/100 WBC (Bld) 65.6 % 47-70 [facility] Potassium [Moles/Vol] 4.3 mmol/L 3.5-5.1 [facility] Protein [Mass/Vol] 7.6 g/dL 6.4-8.2 [facility] Sodium [Moles/Vol] 137 mmol/L 136-145 [facility] WBC (Bld) [#/Vol] 6.5 10*3/uL 4.4-11.0 [facility] Blood erythrocytes count (nu mber/volume)Ordered By: Mariely Arriaga on 05-20-2023 RBC (Bld) [#/Vol] 4.68 10*6/uL 4.2-5.4 [facility] Blood hemoglobin measurement (mass/volume)Ordered By: Mariely Arriaga on 05-20-2023 Hemoglobin (Bld) [Mass/Vol] 13.7 g/dL 12.0-15.0 [facility] Blood lymphocytes/100 leukoc ytesOrdered By: Mariely Arriaga on 05-20-2023 Lymphocytes/100 WBC (Bld) 25.3 % 19-41 [facility] Blood monocytes/100 leukocyt esOrdered By: Mariely Arriaga on 05-20-2023 Monocytes/100 WBC (Bld) 7.6 % 0-10 [facility] Blood platelet mean volumeOr dered By: Mariely Arriaga on 05-20-2023 Platelet mean volume (Bld) [Entitic vol] 11.3 fL 6.2-12.0 [facility] Determination of erythrocyte mean corpuscular volume (MCV)Ordered By: Mariely Arriaga on 05-20-2023 MCV (RBC) [Entitic vol] 89.5 fL 81-99 [facility] HIV 1 and HIV-2 antibody ass ay with HIV-1 p24 antigen detectionOrdered By: Mariely Arriaga on 05-20-2023 HIV 1+2 Ab+HIV1 p24 Ag IA Ql Non-Reactive Nonreactive [facility] Hematocrit Auto (Bld) [Volum e fraction]Ordered By: Mariely Arriaga on 05-20-2023 Hematocrit (Bld) [Volume fraction] 41.9 % 37-47 [facility] Laboratory - Chemistry and C hemistry - challengeOrdered By: Marielywojciech Arriaga on 05-20-2023 ALP [Catalytic activity/Vol] 54 U/L 45-117 [facility] ALT [Catalytic activity/Vol] 20 U/L 13-56 [facility] CO2 [Moles/Vol] 25.0 mmol/L 21.0-32.0 [facility] Cobalamin (Vitamin B12) [Mass/Vol] 307 pg/mL 211-911 [facility] Globulin (S) [Mass/Vol] 3.8 g/dL 2.2-4.2 [facility] Urea nitrogen/Creatinine [Mass ratio] 15.3 mg/mg 10-20 [facility] - Hematology and Cell countsOrdered By: Mariely Arriaga on 05-20-2023 Erythrocyte distribution width (RBC) [Entitic vol] 41.4 fL 35.1-43.9 [facility] Erythrocyte distribution width (RBC) [Ratio] 12.8 % 11.6-14.6 [facility] Immature granulocytes/100 WBC (Bld) 0.300 % 0.0-0.9 [facility] Comment on above: IG% - Immature Granu locytes (promyelocytes, myelocytes and metamyelocytes) > 1% indicates that a LEFT SHIFT is Present. MCH (RBC) [Entitic mass] 29.3 pg 27.0-32.0 [facility] Nucleated RBC/100 WBC (Bld) [Ratio] 0 % 0-5 [facility] MCHC Auto (RBC) [Mass/Vol]Or dered By: Mariely Arriaga on 05-20-2023 MCHC (RBC) [Mass/Vol] 32.7 g/dL 32-36 [facility] No Panel InformationOrdered By: Mariely Arriaga on 05-20-2023 Estimated GFR (MDRD) Amer 139 mL/min >60 [facility] Comment on above: GFR Calc Estimated GFR (MDRD) Non-Af Amer 115 mL/min >60 [facility] Comment on above: Non- GFR Calc Hepatitis B Surface Antigen Non-Reactive Nonreactive [facility] Hepatitis C Antibody Non-Reactive Nonreactive [facility] Comment on above: Non Reactive: < 0.8 Equivocal: >/= 0.8 to < 1.0 Reactive: >/= 1.0The CDC recommends that a reactive/equivocal HCV antibody result be followed up by the HCV Nucleic Acid Amplificationtest (402545) Rubella IgG Antibody Reactive Nonreactive [facility] Comment on above: Antibody Results Int erpretation of Immune Status Non Reactive Presumed Non-Immune Equivocal Equivocal Reactive Presumed Immune Platelets bldOrdered By: Ericka Arriaga on 05-20-2023 Platelets (Bld) [#/Vol] 168 10*3/uL 150-450 [facility] Serum Treponema species anti body detectionOrdered By: Mariely Arriaga on 05-20-2023 Treponema sp Ab Ql (S) Non-Reactive [facility] Serum or plasma albumin jennyfer urement (mass/volume)Ordered By: Mariely Arriaga on 05-20-2023 Albumin [Mass/Vol] 3.8 g/dL 3.2-5.0 [facility] Serum or plasma albumin/glob ulin mass ratioOrdered By: Mariely Arriaga on 05-20-2023 Albumin/Globulin [Mass ratio] 1.0 {ratio} 0.9-2.4 [facility] Serum or plasma calcium jennyfer urement (mass/volume)Ordered By: Mariely Arriaga on 05-20-2023 Calcium [Mass/Vol] 9.1 mg/dL 8.5-10.1 [facility] Serum or plasma creatinine m easurement (mass/volume)Ordered By: Mariely Arriaga on 05-20-2023 Creatinine [Mass/Vol] 0.65 mg/dL 0.55-1.02 [facility] Comment on above: The validity of the calculated GFR & GFRAA in patients over 70 years has not been determined. Clinical correlation is essential. Serum or plasma urea nitroge n measurement (mass/volume)Ordered By: Mariely Arriaga on 05-20-2023 Urea nitrogen [Mass/Vol] 10 mg/dL 7-18 [facility] Thin prep Papanicolaou smear with manual screeningOrdered By: Mariely Arriaga on 05-20-2023 Thin prep Papanicolaou smear with manual screening 14 U/L 15-37 [facility] Thin prep Papanicolaou smear with manual screening 5 5-15 [facility] Culture, urineOrdered By: Kristian Arriaga on 04-29-2023 Bacteria identified Cx Nom (U) Culture exhibits no growth. [facility] Chlamydia trachomatis rRNA d etection by probe and target amplification methodOrdered By: Mariely Arriaga on 04-28-2023 C. trachomatis rRNA CARMEN+probe Ql (Unsp spec) Negative Negative [facility] - Microbiology an d Antimicrobial susceptibilityOrdered By: Mariely Arriaga on 04-28-2023 N. gonorrhoeae DNA CARMEN+probe Ql (Unsp spec) Negative Negative [facility] Comment on above: Performed at: =[address] [id number] Director: Yu Martin MD, Phone: [phone] Urine creatinine measurement (mass/volume)Ordered By: Mariely Arriaga on 04-28-2023 Creatinine (U) [Mass/Vol] 85.40 mg/dL NO RANGE EST. [facility] Urine protein measurement (m ass/volume)Ordered By: Mariely Arriaga on 04-28-2023 Protein (U) [Mass/Vol] 12.4 mg/dL 0.0-11.8 [facility] Urine protein/creatinine mas s ratioOrdered By: Mariely Arriaga on 04-28-2023 Protein/Creatinine (U) [Mass ratio] 145 mg/g CRE 0-200 [facility] Serum or plasma choriogonado tropin detectionOrdered By: Jyothi Lacey on 04-05-2023 HCG ( test) Ql 252 mIU/mL <4 [facility] Comment on above: hCG levels with Gest ational AgeGestational Age hCG mIU/mL (IU/L)0.2 - 1 week 5 - 501-2 weeks 50 - 5002-3 weeks 100 - 82021-6 weeks 500 - 997885-5 weeks 1000 - 079625-7 weeks 18671 - 100,0006-8 weeks 79174 - 200,0002-3 months 31075 - 100,000 Serum or plasma choriogonado tropin detectionOrdered By: Jyothi Lacey on 04-03-2023 HCG ( test) Ql 80 mIU/mL <4 [facility] Comment on above: hCG levels with Gest ational AgeGestational Age hCG mIU/mL (IU/L)0.2 - 1 week 5 - 501-2 weeks 50 - 5002-3 weeks 100 - 84350-0 weeks 500 - 511693-9 weeks 1000 - 417982-8 weeks 13601 - 100,0006-8 weeks 61226 - 200,0002-3 months 24180 - 100,000 CNOVon 03-03-2023 CNOV Office Visit (OBGYWM ) MICHAELDECLANHANH Khan ([id number]) 1995 F Date Time Provider Department 03/03/23 1:30 PM BRUNA ANDRADE OBYADIRA During your visit today, we recorded the following information about you: Blood pressure Weight Height 112/70 61.3 kg 1.6 m Bruna Andrade APRN.TELEVISION ANTENNA INSTALLER 03/03/2023 2:00 PM Signed Film Editor Supervisor offered: Patient declines. Hanh Horvathmagnoliabeverly is a 27 year old female who presents To establish care. HPI: Patient presents today to establish care due to [facility] [employer] [employer] closing. She has an appointment with them to have her IUD removed on March 17 and wants to attempt . 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 LMP: Age at Menarche: Age at First : Age at Menopause: 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 Comments: Sexual Activity: No sexual activity data on record; No partner data on record Contraception: No contraception data on record PAST MEDICAL HISTORY Diagnosis Date Ectopic Generalized anxiety disorder PAST SURGICAL HISTORY Procedure Laterality Date EXTRACTION ERUPTED TOOTH/EXR REMOVAL GALLBLADDER FAMILY HISTORY Problem Relation Age of Onset other (squamaous Cell Carcinoma, Neck) Father Seizures Brother Social History Tobacco Use Smoking status: Never Smokeless tobacco: Never Current Outpatient Medications Medication Sig cyanocobalamin 1,000 mcg/mL once every month. buPROPion XL (WELLBUTRIN XL) 300 mg 24 hr tablet Take 300 mg by mouth once daily. INTRAUTERINE DEVICE, IUD, INTRAUTERINE by INTRAUTERINE route. No current facility-administered medications for this visit. Allergies As of Date: 03/03/2023 Allergen Noted Reaction MACROBID [NITROFURANTOIN MONOHYD/*04/28/2021 Hives SULFA (SULFONAMIDE ANTIBIOTICS) 12/11/2017 Rash Fully Assessed 03/03/2023 REVIEW OF SYSTEMS Expanded ROS: N/A Allergies and current medication updated:Yes EXAM: There were no vitals taken for this visit. GENERAL: pleasant, female in no apparent distress HEENT: Normocephalic, atraumatic, mucus membranes moist, and no lesions CHEST: Normal inspiratory effort ASSESSMENT/PLAN: 1. Encounter to establish care - ICD9: V65.8, ICD10: Z76.89 Recommended to patient to start vitamin with 1 mg of folic acid She is to call office with a positive test or any further questions. Bruna Andrade APRN.TELEVISION ANTENNA INSTALLER Medical Decision Making: Problems: Low: Acute, uncomplicated illness or injury Risk: Minimal: Minimal risk from testing/treatment Medical Decision Making Level: 2 - Straightforward Allergies As of Date: 03/03/2023 Noted Allergy Reaction MACROBID (NITROFURANTOIN MONOHYD/*04/28/2021 4 - Hives SULFA (SULFONAMIDE ANTIBIOTICS) 12/11/2017 2 - Rash Date Reviewed: 03/03/2023 Reviewed by: Pastora Mc - Fully Assessed Reason for Visit: discuss removal iud [Other] Establish Care [42] Primary Visit Diagnosis:Encounter to establish care [Z76.89] Prescriptions as of 03/03/2023 - cyanocobalamin 1,000 mcg/mL once every month. - buPROPion XL (WELLBUTRIN XL) 300 mg 24 hr tablet Take 300 mg by mouth once daily. - INTRAUTERINE DEVICE, IUD, INTRAUTERINE by INTRAUTERINE route. Problem List As Of Date: 03/03/2023 (None) Disposition: Return in 1 year (on 03/03/2024) for Annual Exam. Follow-up and Disposition History for Encounter Date Provider Department Center 03/03/2023 [id number], RENEE ANGELICA Aldana Encounter Status:Closed by BRUNA ANDRADE on 03/03/23 Normal [facility] CBC AND DIFFERENTIALon 01-23 % AUTOMATED IMMATURE GRAN 0.2 % Normal 0.0 - 0.9 [facility] Comment on above: Result Comment: Kristin ture Granulocyte Count (IG) includes promyelocytes, myelocytes and metamyelocytes but does not include bands. Percent differential counts (%) should be interpreted in the context of the absolute cell counts (cells/L). Performed By: #### C BCDF #### [address] [address] Basophils (Bld) [#/Vol] 0.02 10*3/uL Normal 0.00 - 0.1 0 [facility] Comment on above: Performed By: #### C BCDF #### [address] [address] Basophils/100 WBC (Bld) 0.3 % Normal 0.0 - 2.0 [facility] Comment on above: Performed By: #### C BCDF #### [address] [address] Eosinophils (Bld) [#/Vol] 0.15 10*3/uL Normal 0.00 - 0.70 [facility] Comment on above: Performed By: #### C BCDF #### [address] [address] Eosinophils/100 WBC (Bld) 2.5 % Normal 0.0 - 6.0 [facility] Comment on above: Performed By: #### C BCDF #### [address] [address] Erythrocyte distribution width (RBC) [Ratio] 12.4 % Normal 11.5 - 14.5 [facility] Comment on above: Performed By: #### C BCDF #### [address] [address] Hematocrit (Bld) [Volume fraction] 44.2 % Normal 36.0 - 46.0 [facility] Comment on above: Performed By: #### C BCDF #### [address] [address] Hemoglobin (Bld) [Mass/Vol] 14.3 g/dL Normal 12.0 - 16.0 [facility] Comment on above: Performed By: #### C BCDF #### [address] [address] Lymphocytes (Bld) [#/Vol] 2.24 10*3/uL Normal 1.20 - 4.80 [facility] Comment on above: Performed By: #### C BCDF #### [address] [address] Lymphocytes/100 WBC (Bld) 37.5 % Normal 13.0 - 44.0 [facility] Comment on above: Performed By: #### C BCDF #### [address] [address] MCHC (RBC) [Mass/Vol] 32.4 g/dL Normal 32.0 - 36.0 [facility] Comment on above: Performed By: #### C BCDF #### [address] [address] MCV (RBC) [Entitic vol] 92 fL Normal 80 - 100 [facility] Comment on above: Performed By: #### C BCDF #### [address] [address] Monocytes (Bld) [#/Vol] 0.37 10*3/uL Normal 0.10 - 1.0 0 [facility] Comment on above: Performed By: #### C BCDF #### [address] [address] Monocytes/100 WBC (Bld) 6.2 % Normal 2.0 - 10.0 [facility] Comment on above: Performed By: #### C BCDF #### [address] [address] Neutrophils (Bld) [#/Vol] 3.18 10*3/uL Normal 1.20 - 7.70 [facility] Comment on above: Result Comment: Perc ent differential counts (%) should be interpreted in the context of the absolute cell counts (cells/L). Performed By: #### C BCDF #### [address] [address] Neutrophils/100 WBC (Bld) 53.3 % Normal 40.0 - 80.0 [facility] Comment on above: Performed By: #### C BCDF #### [address] [address] Platelets (Bld) [#/Vol] 201 10*3/uL Normal 150 - 450 [facility] Comment on above: Performed By: #### C BCDF #### [address] [address] RBC 4.80 x10E12/L Normal 4.00 - 5.20 [facility] Comment on above: Performed By: #### C BCDF #### [address] [address] WBC (Bld) [#/Vol] 6.0 10*3/uL Normal 4.4 - 11.3 [facility] Comment on above: Performed By: #### C BCDF #### [address] [address] COMPREHENSIVE PANELon 2022 Albumin [Mass/Vol] 4.7 g/dL Normal 3.4 - 5.0 [facility] Comment on above: Performed By: #### C MP #### [address] [address] ALP [Catalytic activity/Vol] 49 U/L Normal 33 - 110 [facility] Comment on above: Performed By: #### C MP #### [address] [address] ALT [Catalytic activity/Vol] 8 U/L Normal 7 - 45 [facility] Comment on above: Result Comment: Rosalva ents treated with Sulfasalazine may generate falsely decreased results for ALT. Performed By: #### C MP #### [address] [address] Anion gap [Moles/Vol] 9 mmol/L Low 10 - 20 [facility] Comment on above: Performed By: #### C MP #### [address] [address] AST [Catalytic activity/Vol] 12 U/L Normal 9 - 39 [facility] Comment on above: Performed By: #### C MP #### [address] [address] Bilirubin [Mass/Vol] 0.6 mg/dL Normal 0.0 - 1.2 [facility] Comment on above: Performed By: #### C MP #### [address] [address] Calcium [Mass/Vol] 9.3 mg/dL Normal 8.6 - 10.3 [facility] Comment on above: Performed By: #### C MP #### [address] [address] Chloride [Moles/Vol] 106 mmol/L Normal 98 - 107 [facility] Comment on above: Performed By: #### C MP #### [address] [address] Creatinine [Mass/Vol] 0.80 mg/dL Normal 0.50 - 1.05 [facility] Comment on above: Performed By: #### C MP #### [address] [address] eGFR FEMALE >90 Normal >90 [facility] Comment on above: Result Comment: CALC ULATIONS OF ESTIMATED GFR ARE PERFORMED USING THE 2020 CKD-EPI STUDY REFIT EQUATION WITHOUT THE RACE VARIABLE FOR THE IDMS-TRACEABLE CREATININE METHODS. https://jasn.asnjournals.org/content/early//ASN.2020 439744 Performed By: #### C MP #### [address] [place] [address] Glucose [Mass/Vol] 73 mg/dL Low 74 - 99 [facility] Comment on above: Performed By: #### C MP #### [address] [address] HCO3 (Bld) [Moles/Vol] 29 mmol/L Normal 21 - 32 [facility] Comment on above: Performed By: #### C MP #### [place] [id number] Potassium [Moles/Vol] 3.8 mmol/L Normal 3.5 - 5.3 [facility] Comment on above: Performed By: #### C MP #### [place] [address] Protein [Mass/Vol] 7.2 g/dL Normal 6.4 - 8.2 [facility] Comment on above: Performed By: #### C MP #### [place] [address] Sodium [Moles/Vol] 140 mmol/L Normal 136 - 145 [facility] Comment on above: Performed By: #### C MP #### [place] [id number] Urea nitrogen [Mass/Vol] 9 mg/dL Normal 6 - 23 [facility] Comment on above: Performed By: #### C MP #### [address] [address] Lab Specimen Source Normal [facility] Comment on above: Performed By: #### C MP #### [address] [address] Performed By: #### C BCDF #### [address] [address] Performed By: #### T HYDS #### [address] [address] Performed By: #### V TB12 #### [address] [address] Performed By: #### V TDOH #### [address] [address] Performed By: #### I RONT #### [address] [address] Performed By: #### F ERRI #### [address] [address] FERRITINon 01-23-2023 FERRITIN 34 ug/L Normal 8 - 150 [facility] Comment on above: Performed By: #### F ERRI #### [address] [address] IRON + TIBCon 01-23-2023 % SATURATION 22 % Low 25 - 45 [facility] Comment on above: Performed By: #### I RONT #### [address] [address] Iron [Mass/Vol] 78 ug/dL Normal 35 - 150 [facility] Comment on above: Performed By: #### I RONT #### [address] [address] TIBC 348 ug/dL Normal 240 - 445 [facility] Comment on above: Performed By: #### I RONT #### [address] [address] TSH WITH REFLEX TO FREE T4 I F ABNORMALon 01-23-2023 TSH Qn 1.35 m[IU]/L Normal 0.44 - 3.98 [facility] Comment on above: Result Comment: TSH testing is performed using different testing methodology at [facility] than at other [facility]. Direct result comparisons should only be made within the same method. Performed By: #### T HYDS #### [address] [address] VITAMIN B12on 01-23-2023 Cobalamin (Vitamin B12) [Mass/Vol] 152 pg/mL Low 211 - 911 [facility] Comment on above: Performed By: #### V TB12 #### [address] [address] VITAMIN D, 25-HYDROXYon 01-01 VITAMIN D, 25-HYDROXY 33 ng/mL Normal [facility] Comment on above: Result Comment: . DEFICIENCY: < 20 NG/ML INSUFFICIENCY: 20-29 NG/ML SUFFICIENCY: 30-100 NG/ML THIS ASSAY ACCURATELY QUANTIFIES THE SUM OF VITAMIN D3, 25-HYDROXY AND VIT D2,25-HYDROXY. Performed By: #### V TDOH #### [facility] [address] [place] [address] Blood Pressure Cuff Sizeon 0 08-08-2022 Fall risk assessment a) No falls within the last year [facility] Work Phone: Tobacco use status [facility] b) No M [facility] Work Phone: Blood Pressure Cuff Size Adult [facility] Work Phone: Office Visit (Internal Medic ine)on 08-08-2022 Follow-up visit Diagnoses/Problems Health Maintenance/Risks Encounter for preventive health examination (V70.0) (Z00.00) Assessed Anxiety (300.00) (F41.9) Orders Anxiety Renew: buPROPion HCl ER (SR) 150 MG Oral Tablet Extended Release 12 Hour; Take 1 tablet twice daily Rx By: Hanh Madrigal; Dispense: 90 Days ; #:180 Tablet; Refill: 3;For: Anxiety; GREGORY = N; Sent To: [facility]; Last Updated By: Chiquita Pacheco; 08/08/2022 9:08:43 AM Provider Impressions Immunizations: Influenza Vaccine: 2021 Prevnar 13 Vaccine -- Pneumovax 23 Vaccine -- Shingrix Vaccine:-- COVID: declines Health Maintenance: Breast Cancer screening: -- Bone Density: -- Cervical Cancer Screenin/22, sees Dr Alba Mar in [place] Colon Cancer Screening -- 1. Reviewed bloodwork done through work physical, all wnl 2. Up to date on all age appropriate health screening . Chief Complaint 27 y/o female presents for physical for work Medication proposed History of Present IllnessPatient is here today for work physical. Pt reports that she as been doing ok. Review of Systems Constitutional: no fever, no chills, not feeling poorly, not feeling tired, no recent weight gain and no recent weight loss. ENT: no earache, no hearing loss, no nosebleeds, no nasal discharge, no sore throat and no hoarseness. Cardiovascular: the heart rate was not slow, the heart rate was not fast, no chest pain, no palpitations, no intermittent leg claudication and no lower extremity edema. Respiratory: no cough, not coughing up sputum and no wheezing that is consistent with asthma. Gastrointestinal: no abdominal pain, no constipation, no melena, no nausea, no diarrhea, no vomiting and no blood in stools. Musculoskeletal: no arthralgias, no myalgias, no back pain, no joint swelling, no joint stiffness, no limb pain and no limb swelling. Integumentary: no skin rashes, no skin lesions, no itching, no skin wound and no dry skin. Neurological: no headache, no confusion, no numbness, no dizziness, no tingling and no fainting. All other systems have been reviewed and are negative for complaint. Active Problems Problems Anxiety (300.00) (F41.9) B12 deficiency (266.2) (E53.8) Fatigue (780.79) (R53.83) Lipoma (214.9) (D17.9) UTI (urinary tract infection) (599.0) (N39.0) Past Medical History Problems History of anxiety (V11.8) (Z86.59) History of gastroesophageal reflux (GERD) (V12.79) (Z87.19) History of kidney stones (V13.01) (Z87.442) Surgical History Problems No history of surgery Family History Other Family history of diabetes mellitus (V18.0) (Z83.3) Family history of heart failure (V17.49) (Z82.49) Family history of hyperlipidemia (V18.19) (Z83.438) Family history of lung cancer (V16.1) (Z80.1) Family history of malignant neoplasm of breast (V16.3) (Z80.3) Family history of Seizures Social History Problems No alcohol use No illicit drug use Non-smoker (V49.89) (Z78.9) Occasional caffeine consumption Allergies Medication Lactose Recorded By: Chiquita Pacheco; 10/21/2020 8:53:01 AM Sulfamethoxazole-Trim ethoprim TABS Recorded By: Chiquita Pacheco; 10/21/2020 8:53:01 AM NonMedication Nickel Recorded By: Chiquita Pacheco; 10/21/2020 8:53:01 AM Current Meds Medication NameInstruction B-12 1000 MCG Sublingual Tablet SublingualTAKE DIRECTED. buPROPion HCl ER (SR) 150 MG Oral Tablet Extended Release 12 HourTake 1 tablet twice daily Vitals Vital Signs Recorded: [id number] 09:05AM Heart Rate69 [id number] Akkxrpchs13 Blood Pressure Cuff SizeAdult Height5 ft 3 in Juqtnp031 lb BMI Zspturitnf88.32 kg/m2 BSA Calculated1.59 Tobacco Useb) No Falls Screening (Age 18+)a) No falls within the last year Physical Exam Constitutional General appearance: Alert and in no acute distress. Eyes Inspection of eyes: Sclera and conjunctiva were normal. Pupil exam: Pupils were equal in size. Extraocular movements were intact. Pulmonary Respiratory assessment: No respiratory distress, normal respiratory rhythm and effort. Auscultation of Lungs: Clear bilateral breath sounds. Cardiovascular Auscultation of heart: Apical pulse normal, heart rate and rhythm normal, normal S1 and S2, no murmurs and no pericardial rub. Exam for edema: No peripheral edema. Abdomen Abdominal Exam: No bruits, normal bowel sounds, soft, non-tender, no abdominal mass palpated. Liver and Spleen exam: No hepato-splenomegaly. Musculoskeletal Examination of gait: Normal. Inspection of digits and nails: No clubbing or cyanosis of the fingernails. Inspection/palpation of joints, bones and muscles: No joint swelling. Normal movement of all extremities. Skin Skin inspection: Normal skin color and pigmentation, normal skin turgor and no visible rash. Neurologic Cranial nerves: Nerves 2-12 were intact, no focal neuro defects. Psychiatric Orientation: Oriented to person, place, and time. Mood and affect: Normal. (more content not included)... Normal [facility] CBC AND DIFFERENTIALon 02-07 Basophils (Bld) [#/Vol] 0.00 10*3/uL Normal 0.00 - 0.1 0 [facility] Comment on above: Performed By: #### C BCDF #### [place] [id number] [place] [address] Basophils/100 WBC (Bld) 0.3 % Normal 0.0 - 2.0 [facility] Comment on above: Performed By: #### C BCDF #### [address] [address] Eosinophils (Bld) [#/Vol] 0.10 10*3/uL Normal 0.00 - 0.70 [facility] Comment on above: Performed By: #### C BCDF #### [address] [address] Eosinophils/100 WBC (Bld) 2.5 % Normal 0.0 - 6.0 [facility] Comment on above: Performed By: #### C BCDF #### [address] [address] Erythrocyte distribution width (RBC) [Ratio] 13.3 % Normal 11.5 - 14.5 [facility] Comment on above: Performed By: #### C BCDF #### [address] [address] Hematocrit (Bld) [Volume fraction] 42.4 % Normal 36.0 - 46.0 [facility] Comment on above: Performed By: #### C BCDF #### [address] [address] Hemoglobin (Bld) [Mass/Vol] 14.6 g/dL Normal 12.0 - 16.0 [facility] Comment on above: Performed By: #### C BCDF #### [address] [address] Lymphocytes (Bld) [#/Vol] 2.00 10*3/uL Normal 1.20 - 4.80 [facility] Comment on above: Performed By: #### C BCDF #### [address] [address] Lymphocytes/100 WBC (Bld) 43.4 % Normal 13.0 - 44.0 [facility] Comment on above: Performed By: #### C BCDF #### [address] [address] MCHC (RBC) [Mass/Vol] 34.4 g/dL Normal 32.0 - 36.0 [facility] Comment on above: Performed By: #### C BCDF #### [address] [address] MCV (RBC) [Entitic vol] 88 fL Normal 80 - 100 [facility] Comment on above: Performed By: #### C BCDF #### [address] [address] Monocytes (Bld) [#/Vol] 0.40 10*3/uL Normal 0.10 - 1.0 0 [facility] Comment on above: Performed By: #### C BCDF #### [address] [address] Monocytes/100 WBC (Bld) 7.7 % Normal 2.0 - 10.0 [facility] Comment on above: Performed By: #### C BCDF #### [address] [address] Neutrophils (Bld) [#/Vol] 2.10 10*3/uL Normal 1.20 - 7.70 [facility] Comment on above: Result Comment: Perc ent differential counts (%) should be interpreted in the context of the absolute cell counts (cells/L). Performed By: #### C BCDF #### [address] [address] Neutrophils/100 WBC (Bld) 46.1 % Normal 40.0 - 80.0 [facility] Comment on above: Performed By: #### C BCDF #### [address] [address] NUCLEATED RBC 0.1 /100 WBC Normal [facility] Comment on above: Performed By: #### C BCDF #### [address] [address] Platelets (Bld) [#/Vol] 173 10*3/uL Normal 150 - 450 [facility] Comment on above: Performed By: #### C BCDF #### [address] [address] RBC 4.84 x10E12/L Normal 4.00 - 5.20 [facility] Comment on above: Performed By: #### C BCDF #### [address] [address] WBC (Bld) [#/Vol] 4.6 10*3/uL Normal 4.4 - 11.3 [facility] Comment on above: Performed By: #### C BCDF #### [address] [address] COMPREHENSIVE PANELon 2021 Albumin [Mass/Vol] 4.7 g/dL Normal 3.4 - 5.0 [facility] Comment on above: Performed By: #### C MP #### [address] [address] ALP [Catalytic activity/Vol] 41 U/L Normal 33 - 110 [facility] Comment on above: Performed By: #### C MP #### [address] [address] ALT [Catalytic activity/Vol] 16 U/L Normal 7 - 45 [facility] Comment on above: Result Comment: Rosalva ents treated with Sulfasalazine may generate falsely decreased results for ALT. Performed By: #### C MP #### [address] [address] Anion gap [Moles/Vol] 12 mmol/L Normal 10 - 20 [facility] Comment on above: Performed By: #### C MP #### [address] [address] AST [Catalytic activity/Vol] 17 U/L Normal 9 - 39 [facility] Comment on above: Performed By: #### C MP #### [address] [address] Bilirubin [Mass/Vol] 0.8 mg/dL Normal 0.0 - 1.2 [facility] Comment on above: Performed By: #### C MP #### [address] [address] Calcium [Mass/Vol] 9.6 mg/dL Normal 8.6 - 10.3 [facility] Comment on above: Performed By: #### C MP #### [address] [address] Chloride [Moles/Vol] 104 mmol/L Normal 98 - 107 [facility] Comment on above: Performed By: #### C MP #### [address] [address] Creatinine [Mass/Vol] 0.87 mg/dL Normal 0.50 - 1.05 [facility] Comment on above: Performed By: #### C MP #### [address] [address] eGFR FEMALE >90 Normal >90 [facility] Comment on above: Result Comment: CALC ULATIONS OF ESTIMATED GFR ARE PERFORMED USING THE 2020 CKD-EPI STUDY REFIT EQUATION WITHOUT THE RACE VARIABLE FOR THE IDMS-TRACEABLE CREATININE METHODS. https://jasn.asnjournals.org/content/early//ASN.2020 882931 Performed By: #### C MP #### [address] [address] Glucose [Mass/Vol] 81 mg/dL Normal 74 - 99 [facility] Comment on above: Performed By: #### C MP #### [address] [address] HCO3 (Bld) [Moles/Vol] 26 mmol/L Normal 21 - 32 [facility] Comment on above: Performed By: #### C MP #### [address] [address] Potassium [Moles/Vol] 4.2 mmol/L Normal 3.5 - 5.3 [facility] Comment on above: Performed By: #### C MP #### [address] [address] Protein [Mass/Vol] 7.7 g/dL Normal 6.4 - 8.2 [facility] Comment on above: Performed By: #### C MP #### [address] [address] Sodium [Moles/Vol] 138 mmol/L Normal 136 - 145 [facility] Comment on above: Performed By: #### C MP #### [address] [address] Urea nitrogen [Mass/Vol] 13 mg/dL Normal 6 - 23 [facility] Comment on above: Performed By: #### C MP #### [address] [address] IRON + TIBCon 02-07-2022 % SATURATION 37 % Normal 25 - 45 [facility] Comment on above: Performed By: #### I RONT #### [address] [address] Iron [Mass/Vol] 135 ug/dL Normal 35 - 150 [facility] Comment on above: Performed By: #### I RONT #### [address] [address] TIBC 367 ug/dL Normal 240 - 445 [facility] Comment on above: Performed By: #### I RONT #### [address] [address] Office Visit (Internal Medic ine)on 02-07-2022 Follow-up visit Diagnoses/Problems Assessed Fatigue (780.79) (R53.83) Anxiety (300.00) (F41.9) Lipoma (214.9) (D17.9) Orders Fatigue Complete Blood Count + Differential; Status:In Progress - Specimen/Data Collected; Done: 07Feb2022 Perform:Lab Services - Lab To Draw (Blood Test); Due:08May2022;Ordered ; For:Fatigue; Ordered By:Hanh Madrigal; Comprehensive Metabolic Panel; Status:In Progress - Specimen/Data Collected; Done: 07Feb2022 Perform:Lab Services - Lab To Draw (Blood Test); Due:08May2022;Ordered ; For:Fatigue; Ordered By:Hanh Madrigal; Iron + TIBC, Serum; Status:In Progress - Specimen/Data Collected; Done: 07Feb2022 Perform:Lab Services - Lab To Draw (Blood Test); Due:08May2022;Ordered ; For:Fatigue; Ordered By:Hanh Madrigal; TSH WITH REFLEX TO FREE T4 IF ABNORMAL; Status:In Progress - Specimen/Data Collected; Done: 07Feb2022 Perform:Lab Services - Lab To Draw (Blood Test); Due:08May2022;Ordered ; For:Fatigue; Ordered By:Hanh Madrigal; Vitamin B12, Serum; Status:In Progress - Specimen/Data Collected; Done: 07Feb2022 Perform:Lab Services - Lab To Draw (Blood Test); Due:08May2022;Ordered ; For:Fatigue; Ordered By:Hanh Madrigal; Vitamin D 25-Hydroxy; Status:In Progress - Specimen/Data Collected; Done: 07Feb2022 Perform:Lab Services - Lab To Draw (Blood Test); Due:08May2022;Ordered ; For:Fatigue; Ordered By:Hanh Madrigal; Lipoma General Surgery Referral Evaluation and Treatment Evaluate AND Treat Status: Hold For - Scheduling Requested for: 07Feb2022 Ordered;For: Lipoma; Ordered By: Hanh Madrigal Performed: Due: 08May2022 Provider Impressions 1. Fatigue - will check cbc, cmp, iron, tsh, b12 and vit d - does have two young kids at home, feels like she sleeps ok - feels like her anxiety is well controlled Chief Complaint 26 y/o female presents for 6 month f/u Pt states she is always tired Its been a problem since June She states its like a tired, but she has taken tests and they some back negative She states she snaps out of it during the days, but come lunch hour she is exhausted again She does sleep through the night, but wakes up exhausted the next morning History of Present IllnessPatient is here today for 6 mo follow up Patient reports that she has felt continually fatigued for the last 6 mo. She through it was related to her medication changes but it did not change. She feels like she does not feel more energetic with caffeine or if she takes a nap. She estimates that she gets about 9 hours of sleep, will fall asleep no problem, she sleeps through the night fine. She has a 6 and a 2 year old. Review of Systems Constitutional: feeling tired, but not feeling poorly. ENT: no nasal discharge and no sore throat. Cardiovascular: no chest pain, no palpitations and no intermittent leg claudication. Respiratory: no cough and not coughing up sputum. Gastrointestinal: no abdominal pain, no melena and no nausea. Neurological: headache. Active Problems Problems Anxiety (300.00) (F41.9) Lipoma (214.9) (D17.9) UTI (urinary tract infection) (599.0) (N39.0) Past Medical History Problems History of anxiety (V11.8) (Z86.59) History of gastroesophageal reflux (GERD) (V12.79) (Z87.19) History of kidney stones (V13.01) (Z87.442) Surgical History Problems No history of surgery Family History Other Family history of diabetes mellitus (V18.0) (Z83.3) Family history of heart failure (V17.49) (Z82.49) Family history of hyperlipidemia (V18.19) (Z83.438) Family history of lung cancer (V16.1) (Z80.1) Family history of malignant neoplasm of breast (V16.3) (Z80.3) Family history of Seizures Social History Problems No alcohol use No illicit drug use Non-smoker (V49.89) (Z78.9) Occasional caffeine consumption Allergies Medication Lactose Recorded By: Chiquita Pacheco; 10/21/2020 8:53:01 AM Sulfamethoxazole-Trim ethoprim TABS Recorded By: Chiquita Pacheco; 10/21/2020 8:53:01 AM NonMedication Nickel Recorded By: Chiquita Pacheco; 10/21/2020 8:53:01 AM Current Meds Medication NameInstruction buPROPion HCl ER (SR) 150 MG Oral Tablet Extended Release 12 HourTake 1 tablet twice daily Vitals Vital Signs Recorded: [id number] 09:03AM Heart Rate91 Hmifnbwi428 Xzntbeyzv43 Blood Pressure Cuff SizeAdult Height5 ft 3 in Etqayw966 lb BMI Vcqetinuyw66.85 kg/m2 BSA Calculated1.6 Tobacco Useb) No PHQ-2 #1. Over the last 2 weeks have you felt down, depressed or hopeless? (If yes, answer PHQ-9 below)No Falls Screening (Age 18+)a) No falls within the last year Physical Exam Constitutional General appearance: Alert and in no acute distress. Eyes Inspection of eyes: Sclera and conjunctiva were normal. Pupil exam: Pupils were equal in size. Extraocular movements were intact. Pulmonary Respiratory assessment: No respiratory distress, normal respiratory rhythm and effort. Auscultation of Lungs: Clear bilateral breath sound (more content not included)... Normal Touchworks TSH WITH REFLEX TO FREE T4 I F ABNORMALon 02-07-2022 TSH Qn 1.61 m[IU]/L Normal 0.44 - 3.98 [facility] Comment on above: Result Comment: TSH testing is performed using different testing methodology at [facility] than at other [facility]. Direct result comparisons should only be made within the same method. Performed By: #### T HYDS #### [address] [address] VITAMIN B12on 02-07-2022 Cobalamin (Vitamin B12) [Mass/Vol] 180 pg/mL Low 211 - 911 [facility] Comment on above: Performed By: #### V TB12 #### [address] [address] VITAMIN D, 25-HYDROXYon VITAMIN D, 25-HYDROXY 32 ng/mL Normal [facility] Comment on above: Result Comment: . DEFICIENCY: < 20 NG/ML INSUFFICIENCY: 20-29 NG/ML SUFFICIENCY: 30-100 NG/ML THIS ASSAY ACCURATELY QUANTIFIES THE SUM OF VITAMIN D3, 25-HYDROXY AND VIT D2,25-HYDROXY. Performed By: #### V TDOH #### [address] [address] Cervical or vagninal specime n microscopic examination by cytology stain (reported ason 09-28-2021 Cytology report Cyto stain Doc (Cvx/Vag) Comment [facility] Work Phone: Comment on above: The Pap smear is a s creening test designed to aid in thedetection of premalignant and malignant conditions of theuterine cervix. It is not a diagnostic procedure andshould not be used as the sole means of detecting cervicalcancer. Both false-positive and false-negative reports dooccur. Chlamydia trachomatis rRNA d etection by probe and target amplification methodon 09-28-2021 C. trachomatis rRNA CARMEN+probe Ql (Unsp spec) Negative Negative [facility] Work Phone: Laboratory - Cytologyon 03-2 9-2022 Director Of Athletics Cyto stain Nom (Cvx/Vag) [ID] Comment [facility] Work Phone: Comment on above: Nubia Thomas [employer]otec hnologist (ASCP) Laboratory - Microbiology an d Antimicrobial susceptibilityon 09-28-2021 N. gonorrhoeae DNA CARMEN+probe Ql (Unsp spec) Negative Negative [facility] Work Phone: Comment on above: Performed at: =G - [facility] [address] [id number] Director: Yu Martin MD, Phone: [phone] Laboratory - Miscellaneous t estson 09-28-2021 Service comment (Unsp spec) [Interp] Comment [facility] Work Phone: Comment on above: This liquid based Th inPrep(R) pap test was screened withthe use of an image guided system. Service comment (Unsp spec) [Interp] . [facility] Work Phone: No Panel Informationon 09-28 Human Papillomavirus Screen Comment [facility] Work Phone: Comment on above: The HPV DNA reflex c riteria were not met with this specimenresult therefore, no HPV testing was performed.Performed at: WB - [facility] [address] [id number] Director: Yu Martin MD, Phone: [phone] Pathology report final diagnosis Narrative Comment [facility] Work Phone: Comment on above: NEGATIVE FOR INTRAEP ITHELIAL LESION OR MALIGNANCY.THIS SPECIMEN WAS RESCREENED PART OF OUR MAINTENANCE DISPATCHER PROGRAM. Office Visit (Internal Medic ine)on 08-23-2021 Follow-up visit Diagnoses/Problems Assessed Anxiety (300.00) (F41.9) Orders Anxiety Renew: buPROPion HCl ER (SR) 150 MG Oral Tablet Extended Release 12 Hour; Take 1 tablet twice daily Rx By: Hanh Madrigal; Dispense: 90 Days ; #:180 Tablet; Refill: 3;For: Anxiety; GREGORY = N; Verified Transmission to [facility]; Last Updated By: SystemMod[employer]ound; 08/23/2021 9:50:36 AM Provider Impressions 1. Anxiety, improved - will have her start taking 300mg in the AM, if that does not seem to have the same effectivness will switch to 150mg XL po daily - follow up in 6 mo Chief Complaint 26 y/o female presents for 4 month f/u Medication proposed Denies new complaints Adult Risk Screening Initial Fall Risk Screening: HANH has not fallen in the last 6 months. Tobacco Screening: HANH does not use tobacco. History of Present Illness Patient is here today for 3 mo follow up on anxiety . Patient has had trouble with falling asleep if she takes it too late, after 4 pm. Otherwise she has felt that it has really helped control her anxiety symptoms. No other side effects. She is having a lot of stress urinary incontinence, discussed it with OB and she is going to be set up to have pelvic floor therapy. Review of Systems Genitourinary: +stress incontinence. Other Symptoms: -anxiety. Active Problems Problems Anxiety (300.00) (F41.9) Lipoma (214.9) (D17.9) UTI (urinary tract infection) (599.0) (N39.0) Past Medical History Problems History of anxiety (V11.8) (Z86.59) History of gastroesophageal reflux (GERD) (V12.79) (Z87.19) History of kidney stones (V13.01) (Z87.442) Surgical History Problems No history of surgery Family History Other Family history of diabetes mellitus (V18.0) (Z83.3) Family history of heart failure (V17.49) (Z82.49) Family history of hyperlipidemia (V18.19) (Z83.438) Family history of lung cancer (V16.1) (Z80.1) Family history of malignant neoplasm of breast (V16.3) (Z80.3) Family history of Seizures Social History Problems No alcohol use No illicit drug use Non-smoker (V49.89) (Z78.9) Occasional caffeine consumption Allergies Medication Lactose Recorded By: Chiquita Pacheco; 10/21/2020 8:53:01 AM Sulfamethoxazole-Trim ethoprim TABS Recorded By: Chiquita Pacheco; 10/21/2020 8:53:01 AM NonMedication Nickel Recorded By: Chiquita Pacheco; 10/21/2020 8:53:01 AM Current Meds Medication NameInstruction buPROPion HCl ER (SR) 150 MG Oral Tablet Extended Release 12 HourTake 1 tablet twice daily Vitals Vital Signs Recorded: [id number] 09:20AM Mqrguqcwkvw08.3 F, Temporal Heart Rate89 Ewjkhkrb505 Acdreikpz21 Blood Pressure Cuff SizeAdult Height5 ft 3 in Mmuwng528 lb BMI Bewzkcwdax72.79 kg/m2 BSA Calculated1.57 Tobacco Useb) No PHQ-2 #1. Over the last 2 weeks have you felt down, depressed or hopeless? (If yes, answer PHQ-9 below)No Fall Screeninga) No falls within the last year Physical Exam Constitutional General appearance: Alert and in no acute distress. Eyes Inspection of eyes: Sclera and conjunctiva were normal. Pupil exam: Pupils were equal in size. Extraocular movements were intact. Musculoskeletal Inspection/palpation of joints, bones and muscles: No joint swelling. Normal movement of all extremities. Skin Skin inspection: Normal skin color and pigmentation, normal skin turgor and no visible rash. Neurologic Cranial nerves: Nerves 2-12 were intact, no focal neuro defects. Psychiatric Orientation: Oriented to person, place, and time. Mood and affect: Normal. Signatures Electronically signed by : Hanh Madrigal DO; Aug 23 2021 1:15PM EST (Author) Normal [employer] Blood Pressure Cuff Sizeon 1 Fall risk assessment a) No falls within the last year [facility] Work Phone: Tobacco use status [facility] b) No M [facility] Work Phone: Blood Pressure Cuff Size Adult [facility] Work Phone: COVID-19, Molecularon 2020 Interpretation and review of laboratory results Normal [facility] SARS-CoV-2 Not Detected Not Detected [facility] Comment on above: This test was perfor med under the FDA's Emergency Use Authorization (EUA). Testing was performed using the [employer] ID NOW COVID-19 assay on the ID NOW platform. This test has not been approved for use in asymptomatic patients and its performance in this patient population has not been evaluated. Negative results do not rule out the presence of SARS-CoV-2/COVID-19. Fact sheets for the EUA can be found at the following links: For Healthcare Providers: https://www.fda.gov/media/528780/download For Patients: https://www.fda.gov/media/344453/download ABO/Rhon 07-02-2020 ABO and Rh group Nom (Bld) O Positive [facility] CBC WITH AUTO DIFFERENTIALon 07-02-2020 Basophils (Bld) [#/Vol] 0.02 10*3/uL [facility] Basophils/100 WBC (Bld) 0.4 % [facility] Eosinophils (Bld) [#/Vol] 0.08 10*3/uL [facility] Eosinophils/100 WBC (Bld) 1.4 % [facility] Erythrocyte distribution width (RBC) [Entitic vol] 13.5 % 11.6 - 14.8 % [facility] Hematocrit (Bld) [Volume fraction] 43.8 % 36 - 46 % [facility] Hemoglobin (Bld) [Mass/Vol] 14.1 g/dL 12 - 16 g/dL [facility] Immature granulocytes (Bld) [#/Vol] 0.02 10*3/uL [facility] Immature granulocytes/100 WBC (Bld) 0.40 % [facility] Comment on above: The IG parameter is the percentage of metamyelocytes, myelocytes and promyelocytes. An immature granulocyte count (IG) of 1% or more suggests the possibility of infection, an IG count of 3% is very likely related to an infection. Lymphocytes (Bld) [#/Vol] 2.03 10*3/uL [facility] Lymphocytes/100 WBC (Bld) 36.3 % [facility] MCH (RBC) [Entitic mass] 28.0 pg 26 - 34 pg [facility] MCHC (RBC) [Mass/Vol] 32.2 g/dL 31 - 37 g/dL [facility] MCV (RBC) [Entitic vol] 86.9 fL 80 - 100 fL [facility] Monocytes (Bld) [#/Vol] 0.37 10*3/uL [facility] Monocytes/100 WBC (Bld) 6.6 % [facility] Neutrophils (Bld) [#/Vol] 3.07 10*3/uL [facility] Neutrophils/100 WBC (Bld) 54.9 % [facility] Nucleated RBC (Bld) [#/Vol] 0.00 10*3/uL [facility] Nucleated RBC/100 WBC (Bld) [Ratio] 0.0 % [facility] Platelet mean volume (Bld) [Entitic vol] 11.1 fL 9.4 - 12.4 fL [facility] Platelets (Bld) [#/Vol] 163 10*3/uL [facility] RBC (Bld) [#/Vol] 5.04 10*6/uL [facility] WBC (Bld) [#/Vol] 5.59 10*3/uL [facility] eah Chem 7on 07-02-2020 Anion gap [Moles/Vol] 11 mmol/L 10 - 2 0 mmol/L [facility] Chloride [Moles/Vol] 109 mmol/L High 98 - 10 8 mmol/L [facility] Creatinine [Mass/Vol] 0.92 mg/dL 0.40 - 1.10 Oh [facility] GFR/1.73 sq M predicted among non-blacks MDRD (S/P/Bld) [Vol rate/Area] The eGFR should be used for monitoring renal function only and not for medication dosing. [facility] GFR/1.73 sq M.predicted CKD-EPI (S/P/Bld) [Vol rate/Area] 87 >=60 mL/min/1.73 m2 [facility] Glucose [Mass/Vol] 90 mg/dL 65 - 99 mg/dL [facility] HCO3 [Moles/Vol] 22 mmol/L 21 - 32 mmol/L [facility] Potassium [Moles/Vol] 3.8 mmol/L 3.5 - 5.1 mmol/L [facility] Sodium [Moles/Vol] 138 mmol/L 135 - 145 mmol/L [facility] Urea nitrogen [Mass/Vol] 16 mg/dL 8 - 25 mg/dL [facility] Urea nitrogen/Creatinine [Mass ratio] 17.4 mg/mg [facility] HCG (QUANTITATIVE)on 020 Beta HCG ( test) Ql (U) Males and non females: <5 mIU/mL Females during : 3-4 weeks 9-130 mIU/mL 4-5 weeks 75-2600 mIU/mL 5-6 weeks 850-20,800 mIU/mL 6-7 weeks 4000-100,200 mIU/mL 7-12 weeks 11,500-289,000 mIU/mL 12-16 weeks 18,300-137,000 mIU/mL 16-29 weeks 1,400-53,000 mIU/mL 29-41 weeks 940-60,000 mIU/mL [facility] HCG Qn 1073 m[IU]/mL High [facility] Interpretation and review of laboratory results Abnormal [facility] Hepatic Function Panel (LFT) on 07-02-2020 Albumin [Mass/Vol] 4.4 g/dL 3.2 - 5.2 g/dL [facility] ALP [Catalytic activity/Vol] 65 U/L 40 - 140 U/L [facility] ALT [Catalytic activity/Vol] 14 U/L 14 - 65 U/L [facility] AST [Catalytic activity/Vol] 10 U/L 0 - 45 U/L [facility] Bilirubin [Mass/Vol] 0.7 mg/dL 0 - 1.3 mg/dL [facility] Bilirubin.conjugated [Mass/Vol] 0.2 mg/dL 0 - 0.4 mg/dL [facility] Protein [Mass/Vol] 8.3 g/dL High 6 - 8 g/dL [facility] Lipaseon 07-02-2020 Interpretation and review of laboratory results Normal [facility] Lipase [Catalytic activity/Vol] 89 U/L 73 - 393 U/L [facility] Otheron 07-02-2020 Extra Tube Hold for add-ons. [facility] Comment on above: Auto resulted. Interpretation and review of laboratory results Abnormal [facility] URINALYSISon 07-02-2020 Bacteria Auto Ql (U) None Seen None Se en /hpf [facility] Bilirubin Ql (U) Negative Negative [facility] Clarity Refractometry automated (U) Clear Clear [facility] Color (U) Yellow Colorless, Yellow [facility] Glucose Auto test strip (U) [Mass/Vol] Negative Negative mg/dL [facility] Hemoglobin Auto test strip Ql (U) Small Abnormal Negative [facility] Interpretation and review of laboratory results Abnormal [facility] Ketones (U) [Mass/Vol] Negative Negat zachary mg/dL [facility] Leukocyte esterase Auto test strip Ql (U) Negative Negative [facility] Mucus Auto (Urine sed) [#/Area] Rare None Seen, Rare /lpf [facility] Nitrite Auto test strip Ql (U) Negative Negative [facility] pH (U) 5.5 [pH] [facility] Protein (U) [Mass/Vol] Negative Negat zachary mg/dL [facility] RBC Auto (Urine sed) [#/Area] 3 [facility] Specific gravity (U) [Rel density] 1.031 High [facility] Transitional cells Computer assisted (U) [#/Area] <1 [facility] Urobilinogen (U) [Mass/Vol] <2.0 <2.0 mg/dL [facility] WBC Auto (Urine sed) [#/Area] 2 [facility] Microscopic examination is performed on all urinalysis samples and only positive findings are reported. The test for blood on the chemical analytic portion of urinalysis may also be positive due to hemoglobinuria and myoglobinuria and if red blood cells are present they are quantified by microscopic examination. [facility] US OB TRANSVAGINALon 31-2 020 EXAMINATION: US OB TRANSVAGINAL HISTORY: ORDERING SYSTEM PROVIDED HISTORY: RLQ pain, , TECHNOLOGIST PROVIDED HISTORY: Illness/Other Reason for exam: RLQ PAIN Cancer History: u Surgery, RadiationHistory: u Encounter Type: Initial Additional signs and symptoms: NO ORDERING SYSTEM PROVIDED DIAGNOSIS CODES: COMPARISON: None. TECHNIQUE: Transvaginal ultrasound utilizing B-mode, M-mode, color Doppler and spectral analysis. FINDINGS: 1.6 x 1.1 x 1.7 cm rounded complex mass at the right adnexa with internal 0.5 cm cystic collection. The lesion is separate from the right ovary. The mass demonstrates peripheral vascularity on color Doppler interrogation. Overall findings are concerning for an ectopic . The small 5 mm cystic focus may represent an early gestational sac, however yolk sac and pole is not identified. Small amount of complex free fluid in the left adnexa is suggestive of underlying hemorrhagic products. Right ovary is normal in size and echogenicity, measures 3.5 x 1.7 x 1.9 cm. Multiple small normal appearing follicles are identified. Left ovary is enlarged, measures 4.5 x 2.7 x 3.6 cm. Left ovary contains a complex cyst with internal debris and septations. Findings may represent a corpus luteal or hemorrhagic cyst. Ovaries demonstrate normal color Doppler flow with appropriate spectral waveforms. Resistive indices measure 0.58 on the right and 0.41 on the left. Echogenic intrauterine device is centered within the fundal endometrial cavity. The surrounding endometrium is heterogeneous with moderate hypoechoic hemorrhagic products. Products within endometrial cavity. [facility] Overall findings concerning for right adnexal ectopic . 1.6 cm right adnexal mass, separate from the ovary. No definite pole or yolk sac identified. Probable left ovarian hemorrhagic cyst or corpus luteal cyst, measures up to 3.4 cm. Small amount of complex free fluid in the left adnexa suggestive of hemorrhagic products. Moderate hemorrhagic products in the endometrial cavity. Intrauterine device is centered within the fundal endometrial cavity. Critical results were called by Dr. Edyta Green to EILEEN EL on 07/02/2020 at 10:23. /[facility] Workstation ID: [id number] [facility] Interface, Rad In Farheeni Speechq - 07/02/2020 6:20 PM EST EXAMINATION: US OB TRANSVAGINAL HISTORY: ORDERING SYSTEM PROVIDED HISTORY: RLQ pain, , TECHNOLOGIST PROVIDED HISTORY: Illness/Other Reason for exam: RLQ PAIN Cancer History: u Surgery, RadiationHistory: u Encounter Type: Initial Additional signs and symptoms: NO ORDERING SYSTEM PROVIDED DIAGNOSIS CODES: COMPARISON: None. TECHNIQUE: Transvaginal ultrasound utilizing B-mode, M-mode, color Doppler and spectral analysis. FINDINGS: 1.6 x 1.1 x 1.7 cm rounded complex mass at the right adnexa with internal 0.5 cm cystic collection. The lesion is separate from the right ovary. The mass demonstrates peripheral vascularity on color Doppler interrogation. Overall findings are concerning for an ectopic . The small 5 mm cystic focus may represent an early gestational sac, however yolk sac and pole is not identified. Small amount of complex free fluid in the left adnexa is suggestive of underlying hemorrhagic products. Right ovary is normal in size and echogenicity, measures 3.5 x 1.7 x 1.9 cm. Multiple small normal appearing follicles are identified. Left ovary is enlarged, measures 4.5 x 2.7 x 3.6 cm. Left ovary contains a complex cyst with internal debris and septations. Findings may represent a corpus luteal or hemorrhagic cyst. Ovaries demonstrate normal color Doppler flow with appropriate spectral waveforms. Resistive indices measure 0.58 on the right and 0.41 on the left. Echogenic intrauterine device is centered within the fundal endometrial cavity. The surrounding endometrium is heterogeneous with moderate hypoechoic hemorrhagic products. Products within endometrial cavity. IMPRESSION: Overall findings concerning for right adnexal ectopic . 1.6 cm right adnexal mass, separate from the ovary. No definite pole or yolk sac identified. Probable left ovarian hemorrhagic cyst or corpus luteal cyst, measures up to 3.4 cm. Small amount of complex free fluid in the left adnexa suggestive of hemorrhagic products. Moderate hemorrhagic products in the endometrial cavity. Intrauterine device is centered within the fundal endometrial cavity. Critical results were called by Dr. Edyta Green to EILEEN EL on 07/02/2020 at 10:23. [facility] Workstation ID: [id number] [facility] US OB TRANSVAGINAL EXAMINATION: US OB TRANSVAGINAL HISTORY: ORDERING SYSTEM PROVIDED HISTORY: RLQ pain, , TECHNOLOGIST PROVIDED HISTORY: Illness/Other Reason for exam: RLQ PAIN Cancer History: u Surgery, RadiationHistory: u Encounter Type: Initial Additional signs and symptoms: NO ORDERING SYSTEM PROVIDED DIAGNOSIS CODES: COMPARISON: None. TECHNIQUE: Transvaginal ultrasound utilizing B-mode, M-mode, color Doppler and spectral analysis. FINDINGS: 1.6 x 1.1 x 1.7 cm rounded complex mass at the right adnexa with internal 0.5 cm cystic collection. The lesion is separate from the right ovary. The mass demonstrates peripheral vascularity on color Doppler interrogation. Overall findings are concerning for an ectopic . The small 5 mm cystic focus may represent an early gestational sac, however yolk sac and pole is not identified. Small amount of complex free fluid in the left adnexa is suggestive of underlying hemorrhagic products. Right ovary is normal in size and echogenicity, measures 3.5 x 1.7 x 1.9 cm. Multiple small normal appearing follicles are identified. Left ovary is enlarged, measures 4.5 x 2.7 x 3.6 cm. Left ovary contains a complex cyst with internal debris and septations. Findings may represent a corpus luteal or hemorrhagic cyst. Ovaries demonstrate normal color Doppler flow with appropriate spectral waveforms. Resistive indices measure 0.58 on the right and 0.41 on the left. Echogenic intrauterine device is centered within the fundal endometrial cavity. The surrounding endometrium is heterogeneous with moderate hypoechoic hemorrhagic products. Products within endometrial cavity. IMPRESSION: Overall findings concerning for right adnexal ectopic . 1.6 cm right adnexal mass, separate from the ovary. No definite pole or yolk sac identified. Probable left ovarian hemorrhagic cyst or corpus luteal cyst, measures up to 3.4 cm. Small amount of complex free fluid in the left adnexa suggestive of hemorrhagic products. Moderate hemorrhagic products in the endometrial cavity. Intrauterine device is centered within the fundal endometrial cavity. Critical results were called by Dr. Edyta Green to [employer] on 07/02/2020 at 10:23. /[employer] Workstation ID: [id number] Dictated by: EDYTA GREEN on MonJul 02, 2020 10:26:22 AM EST Transcribed by: ROBERTO CARLOS KHAN on MonJul 02, 2020 10:34:20 AM EST Finalized by: EDYTA GREEN on MonJul 02, 2020 6:18:06 PM EST Normal [facility] Comment on above: Order Comment: Injur y/Trauma or Illness?:Illness/Other How long have you had these symptoms (acute/chronic)?:Acute Reason for exam?:RLQ PAIN History of cancer?:u Surgeries, chemotherapy, or radiation?:u Type of Exam?:Initial Additional signs and symptoms?:NO Urine Pregnancyon 07-02-2020 HCG ( test) Ql (U) Positive Abnormal Negative [facility] Interpretation and review of laboratory results Abnormal [facility] Basic Metabolic Panelon 08-04 Anion gap [Moles/Vol] 12 mmol/L 10 - 2 0 mmol/L [facility] Calcium [Mass/Vol] 8.2 mg/dL Low 8.4 - 10. 2 mg/dL [facility] Chloride [Moles/Vol] 108 mmol/L 98 - 10 8 mmol/L [facility] Creatinine [Mass/Vol] 1.19 mg/dL High 0.40 - 1.10 [facility] GFR/1.73 sq M predicted among non-blacks MDRD (S/P/Bld) [Vol rate/Area] The eGFR should be used for monitoring renal function only and not for medication dosing. [facility] GFR/1.73 sq M.predicted CKD-EPI (S/P/Bld) [Vol rate/Area] 64 >=60 mL/min/1.73 m2 [facility] Glucose [Mass/Vol] 90 mg/dL 65 - 99 mg/dL [facility] HCO3 [Moles/Vol] 24 mmol/L 21 - 32 mmol/L [facility] Interpretation and review of laboratory results Abnormal [facility] Potassium [Moles/Vol] 4.5 mmol/L 3.5 - 5.1 mmol/L [facility] Sodium [Moles/Vol] 139 mmol/L 135 - 145 mmol/L [facility] Urea nitrogen [Mass/Vol] 10 mg/dL 8 - 25 mg/dL [facility] Urea nitrogen/Creatinine [Mass ratio] 8.4 mg/mg Low [facility] CBCon 08-28-2019 Erythrocyte distribution width (RBC) [Entitic vol] 15.4 % High 11.6 - 14.8 % [facility] Hematocrit (Bld) [Volume fraction] 33.8 % Low 36 - 46 % [facility] Hemoglobin (Bld) [Mass/Vol] 10.6 g/dL Low 12 - 16 g/dL [facility] Interpretation and review of laboratory results Abnormal [facility] MCH (RBC) [Entitic mass] 25.6 pg Low 26 - 34 pg [facility] MCHC (RBC) [Mass/Vol] 31.4 g/dL 31 - 37 g/dL [facility] MCV (RBC) [Entitic vol] 81.6 fL 80 - 100 fL [facility] Nucleated RBC (Bld) [#/Vol] 0.00 10*3/uL [facility] Nucleated RBC/100 WBC (Bld) [Ratio] 0.0 % [facility] Platelet mean volume (Bld) [Entitic vol] 10.9 fL 9 - 15.5 fL [facility] Platelets (Bld) [#/Vol] 192 10*3/uL [facility] RBC (Bld) [#/Vol] 4.14 10*6/uL [facility] WBC (Bld) [#/Vol] 7.51 10*3/uL [facility] BMPon 08-27-2019 Anion gap [Moles/Vol] 10 mmol/L 10 - 2 0 mmol/L [facility] Calcium [Mass/Vol] 8.6 mg/dL 8.4 - 10. 2 mg/dL [facility] Chloride [Moles/Vol] 110 mmol/L High 98 - 10 8 mmol/L [facility] Creatinine [Mass/Vol] 0.89 mg/dL 0.40 - 1.10 [facility] GFR/1.73 sq M predicted among non-blacks MDRD (S/P/Bld) [Vol rate/Area] The eGFR should be used for monitoring renal function only and not for medication dosing. [facility] GFR/1.73 sq M.predicted CKD-EPI (S/P/Bld) [Vol rate/Area] 91 >=60 mL/min/1.73 m2 [facility] Glucose [Mass/Vol] 92 mg/dL 65 - 99 mg/dL [facility] HCO3 [Moles/Vol] 23 mmol/L 21 - 32 mmol/L [facility] Interpretation and review of laboratory results Abnormal [facility] Potassium [Moles/Vol] 4.3 mmol/L 3.5 - 5.1 mmol/L [facility] Sodium [Moles/Vol] 139 mmol/L 135 - 145 mmol/L [facility] Urea nitrogen [Mass/Vol] 10 mg/dL 8 - 25 mg/dL [facility] Urea nitrogen/Creatinine [Mass ratio] 11.2 mg/mg [facility] CBC WITH AUTO DIFFERENTIALon 08-27-2019 Basophils (Bld) [#/Vol] 0.02 10*3/uL [facility] Basophils/100 WBC (Bld) 0.2 % [facility] Eosinophils (Bld) [#/Vol] 0.10 10*3/uL [facility] Eosinophils/100 WBC (Bld) 1.0 % [facility] Erythrocyte distribution width (RBC) [Entitic vol] 15.0 % High 11.6 - 14.8 % [facility] Hematocrit (Bld) [Volume fraction] 36.9 % 36 - 46 % [facility] Hemoglobin (Bld) [Mass/Vol] 11.8 g/dL Low 12 - 16 g/dL [facility] Immature granulocytes (Bld) [#/Vol] 0.04 10*3/uL [facility] Immature granulocytes/100 WBC (Bld) 0.40 % [facility] Comment on above: The IG parameter is the percentage of metamyelocytes, myelocytes, and promyelocytes. Interpretation and review of laboratory results Abnormal [facility] Lymphocytes (Bld) [#/Vol] 2.38 10*3/uL [facility] Lymphocytes/100 WBC (Bld) 23.1 % [facility] MCH (RBC) [Entitic mass] 25.7 pg Low 26 - 34 pg [facility] MCHC (RBC) [Mass/Vol] 32.0 g/dL 31 - 37 g/dL [facility] MCV (RBC) [Entitic vol] 80.2 fL 80 - 100 fL [facility] Monocytes (Bld) [#/Vol] 0.51 10*3/uL [facility] Monocytes/100 WBC (Bld) 4.9 % [facility] Neutrophils (Bld) [#/Vol] 7.26 10*3/uL High [facility] Neutrophils/100 WBC (Bld) 70.4 % [facility] Nucleated RBC (Bld) [#/Vol] 0.00 10*3/uL [facility] Nucleated RBC/100 WBC (Bld) [Ratio] 0.0 % [facility] Platelet mean volume (Bld) [Entitic vol] 10.6 fL 9 - 15.5 fL [facility] Platelets (Bld) [#/Vol] 210 10*3/uL [facility] RBC (Bld) [#/Vol] 4.60 10*6/uL [facility] WBC (Bld) [#/Vol] 10.31 10*3/uL [facility] Basophils (Bld) [#/Vol] 0.04 10*3/uL [facility] Basophils/100 WBC (Bld) 0.5 % [facility] Eosinophils (Bld) [#/Vol] 0.32 10*3/uL [facility] Eosinophils/100 WBC (Bld) 3.8 % [facility] Erythrocyte distribution width (RBC) [Entitic vol] 15.1 % High 11.6 - 14.8 % [facility] Hematocrit (Bld) [Volume fraction] 41.6 % 36 - 46 % [facility] Hemoglobin (Bld) [Mass/Vol] 12.9 g/dL 12 - 16 g/dL [facility] Immature granulocytes (Bld) [#/Vol] 0.02 10*3/uL [facility] Immature granulocytes/100 WBC (Bld) 0.20 % [facility] Comment on above: The IG parameter is the percentage of metamyelocytes, myelocytes, and promyelocytes. Interpretation and review of laboratory results Abnormal [facility] Lymphocytes (Bld) [#/Vol] 4.37 10*3/uL High [facility] Lymphocytes/100 WBC (Bld) 52.1 % [facility] MCH (RBC) [Entitic mass] 25.2 pg Low 26 - 34 pg [facility] MCHC (RBC) [Mass/Vol] 31.0 g/dL 31 - 37 g/dL [facility] MCV (RBC) [Entitic vol] 81.4 fL 80 - 100 fL [facility] Monocytes (Bld) [#/Vol] 0.55 10*3/uL [facility] Monocytes/100 WBC (Bld) 6.6 % [facility] Neutrophils (Bld) [#/Vol] 3.09 10*3/uL [facility] Neutrophils/100 WBC (Bld) 36.8 % [facility] Nucleated RBC (Bld) [#/Vol] 0.00 10*3/uL [facility] Nucleated RBC/100 WBC (Bld) [Ratio] 0.0 % [facility] Platelet mean volume (Bld) [Entitic vol] 10.6 fL 9 - 15.5 fL [facility] Platelets (Bld) [#/Vol] 242 10*3/uL [facility] RBC (Bld) [#/Vol] 5.11 10*6/uL [facility] WBC (Bld) [#/Vol] 8.39 10*3/uL [facility] CTA PULM ART AND CT ABD PELV IS WITH IV CONTRASTon 08-27-[address] ABD PELVIS WITH IV CONTRAST EXAMINATION: CTA PULMONARY ARTERIES, CT ABDOMEN WITH CONTRAST, AND CT PELVIS WITH CONTRAST, 08/27/2019: HISTORY: PE suspected, intermediate prob, positive D-dimer; Recent vaginal delivery complicated by eclampsia and retained products of conception. Recent D AND C now pleuritic chest pain. Positive d-dimer; abd pain, elevated d-dimer COMPARISON: Chest radiograph, 08/27/2019. TECHNIQUE: IV contrast-enhanced axial CTA imaging of the chest was performed using 75 mL of Isovue-370 intravenous contrast. MIP and MPR images are provided. The same contrast bolus was then utilized for IV contrast-enhanced axial CT imaging of the abdomen and pelvis with sagittal and coronal reconstructions. Dose reduction techniques were achieved by using automated exposure control and/or adjustment of mA and/or kV according to patient size and/or use of iterative reconstruction technique. FINDINGS: CTA CHEST: There is excellent pulmonary arterial enhancement. No pulmonary embolism is seen through the segmental level. Cardiac size is normal. There is no pericardial effusion. The ascending aorta is degraded by pulsation artifact. Allowing for this, the aorta and arch vessels are unremarkable. The thyroid gland appears within normal limits. There is normal thymic tissue in the anterior mediastinal fat. The lungs and pleural spaces are clear. CT ABDOMEN: A punctate gallstone is seen on image 70. There are no CT findings of cholecystitis or biliary ductal dilatation. The liver, pancreas, spleen, adrenal glands, kidneys, aorta, IVC, stomach and small bowel are unremarkable. There is a small fat-containing umbilical hernia. CT PELVIS: The appendix, pelvic small bowel loops, uterus, ovaries and urinary bladder are unremarkable. There is moderate stool throughout the colon. No inflammatory fat stranding, free fluid, loculated fluid or free air is seen in the abdomen or pelvis. The imaged axial skeleton appears intact. IMPRESSION: 1. No pulmonary arterial embolism, aortic dissection, or other acute diagnostic abnormality in the chest, abdomen or pelvis. 2. Cholelithiasis. 3. Small fat-containing umbilical hernia. 4. Moderate colonic stool. [employer] Workstation ID: [id number] Dictated by: GERMAINE DON on MonAug 27, 2019 1:57:08 AM EST Transcribed by: JESSICA BURTON on MonAug 27, 2019 2:17:15 AM EST Finalized by: GERMAINE DON on MonAug 27, 2019 2:41:28 AM EST Normal [facility] Comment on above: Order Comment: Injur y/Trauma or Illness?:Illness/Other How long have you had these symptoms (acute/chronic)?:Acute Reason for exam?:abd pain, elevated d-dimer Type of Exam?:Initial Additional signs and symptoms?:vaginal delivery x7 weeks ago CTA Pulm Art and CT Abd Pelv is with IV contraston 08-27-2019 Interface, Rad In [employer] - 08/27/2019 2:44 AM EST EXAMINATION: CTA PULMONARY ARTERIES, CT ABDOMEN WITH CONTRAST, AND CT PELVIS WITH CONTRAST, 08/27/2019: HISTORY: PE suspected, intermediate prob, positive D-dimer; Recent vaginal delivery complicated by eclampsia and retained products of conception. Recent D&C now pleuritic chest pain. Positive d-dimer; abd pain, elevated d-dimer COMPARISON: Chest radiograph, 08/27/2019. TECHNIQUE: IV contrast-enhanced axial CTA imaging of the chest was performed using 75 mL of Isovue-370 intravenous contrast. MIP and MPR images are provided. The same contrast bolus was then utilized for IV contrast-enhanced axial CT imaging of the abdomen and pelvis with sagittal and coronal reconstructions. Dose reduction techniques were achieved by using automated exposure control and/or adjustment of mA and/or kV according to patient size and/or use of iterative reconstruction technique. FINDINGS: CTA CHEST: There is excellent pulmonary arterial enhancement. No pulmonary embolism is seen through the segmental level. Cardiac size is normal. There is no pericardial effusion. The ascending aorta is degraded by pulsation artifact. Allowing for this, the aorta and arch vessels are unremarkable. The thyroid gland appears within normal limits. There is normal thymic tissue in the anterior mediastinal fat. The lungs and pleural spaces are clear. CT ABDOMEN: A punctate gallstone is seen on image 70. There are no CT findings of cholecystitis or biliary ductal dilatation. The liver, pancreas, spleen, adrenal glands, kidneys, aorta, IVC, stomach and small bowel are unremarkable. There is a small fat-containing umbilical hernia. CT PELVIS: The appendix, pelvic small bowel loops, uterus, ovaries and urinary bladder are unremarkable. There is moderate stool throughout the colon. No inflammatory fat stranding, free fluid, loculated fluid or free air is seen in the abdomen or pelvis. The imaged axial skeleton appears intact. IMPRESSION: 1. No pulmonary arterial embolism, aortic dissection, or other acute diagnostic abnormality in the chest, abdomen or pelvis. 2. Cholelithiasis. 3. Small fat-containing umbilical hernia. 4. Moderate colonic stool. [employer] Workstation ID: [id number] [facility] 1. No pulmonary arterial embolism, aortic dissection, or other acute diagnostic abnormality in the chest, abdomen or pelvis. 2. Cholelithiasis. 3. Small fat-containing umbilical hernia. 4. Moderate colonic stool. [facility] Workstation ID: [id number] [facility] EXAMINATION: CTA PULMONARY ARTERIES, CT ABDOMEN WITH CONTRAST, AND CT PELVIS WITH CONTRAST, 08/27/2019: HISTORY: PE suspected, intermediate prob, positive D-dimer; Recent vaginal delivery complicated by eclampsia and retained products of conception. Recent D&C now pleuritic chest pain. Positive d-dimer; abd pain, elevated d-dimer COMPARISON: Chest radiograph, 08/27/2019. TECHNIQUE: IV contrast-enhanced axial CTA imaging of the chest was performed using 75 mL of Isovue-370 intravenous contrast. MIP and MPR images are provided. The same contrast bolus was then utilized for IV contrast-enhanced axial CT imaging of the abdomen and pelvis with sagittal and coronal reconstructions. Dose reduction techniques were achieved by using automated exposure control and/or adjustment of mA and/or kV according to patient size and/or use of iterative reconstruction technique. FINDINGS: CTA CHEST: There is excellent pulmonary arterial enhancement. No pulmonary embolism is seen through the segmental level. Cardiac size is normal. There is no pericardial effusion. The ascending aorta is degraded by pulsation artifact. Allowing for this, the aorta and arch vessels are unremarkable. The thyroid gland appears within normal limits. There is normal thymic tissue in the anterior mediastinal fat. The lungs and pleural spaces are clear. CT ABDOMEN: A punctate gallstone is seen on image 70. There are no CT findings of cholecystitis or biliary ductal dilatation. The liver, pancreas, spleen, adrenal glands, kidneys, aorta, IVC, stomach and small bowel are unremarkable. There is a small fat-containing umbilical hernia. CT PELVIS: The appendix, pelvic small bowel loops, uterus, ovaries and urinary bladder are unremarkable. There is moderate stool throughout the colon. No inflammatory fat stranding, free fluid, loculated fluid or free air is seen in the abdomen or pelvis. The imaged axial skeleton appears intact. [facility] Chem 708-27-2019 Anion gap [Moles/Vol] 9 mmol/L Low 10 - 2 0 mmol/L [facility] Chloride [Moles/Vol] 107 mmol/L 98 - 10 8 mmol/L [facility] Creatinine [Mass/Vol] 1.06 mg/dL 0.40 - 1.10 [facility] GFR/1.73 sq M predicted among non-blacks MDRD (S/P/Bld) [Vol rate/Area] The eGFR should be used for monitoring renal function only and not for medication dosing. [facility] GFR/1.73 sq M.predicted CKD-EPI (S/P/Bld) [Vol rate/Area] 74 >=60 mL/min/1.73 m2 [facility] Glucose [Mass/Vol] 94 mg/dL 65 - 99 mg/dL [facility] H[facility]3 [Moles/Vol] 28 mmol/L 21 - 32 mmol/L [facility] Potassium [Moles/Vol] 4.3 mmol/L 3.5 - 5.1 mmol/L [facility] Sodium [Moles/Vol] 140 mmol/L 135 - 145 mmol/L [facility] Urea nitrogen [Mass/Vol] 13 mg/dL 8 - 25 mg/dL [facility] Urea nitrogen/Creatinine [Mass ratio] 12.3 mg/mg [facility] D-DIMER, QUANTITATIVEon 08-04 Fibrin D-dimer FEU (PPP) [Mass/Vol] 0.55 High 0.27 - 0.49 mcg/mL FEU [facility] Interpretation and review of laboratory results Abnormal [facility] A D-dimer concentration of <0.5 micrograms per milliliter FEU is considered a low probability for pulmonary embolus (PE) and deep venous thrombosis (DVT). Results of this test should always be interpreted in conjunction with the patient's medical history,clinical presentation, and other findings. Clinical diagnosis should not be based on the results of the D-dimer alone. [facility] HCG (QUALITATIVE)on 08-27-19 20 Beta HCG ( test) Ql Negative Negative [facility] Negative: The result is less than or equal to 5 mIU/mL of HCG. [facility] Hepatic Function Panel (LFT) on 08-27-2019 Albumin [Mass/Vol] 3.6 g/dL 3.2 - 5.2 g/dL [facility] ALP [Catalytic activity/Vol] 85 U/L 40 - 140 U/L [facility] ALT [Catalytic activity/Vol] 19 U/L 14 - 65 U/L [facility] AST [Catalytic activity/Vol] 13 U/L 0 - 45 U/L [facility] Bilirubin [Mass/Vol] 0.1 mg/dL 0 - 1.3 mg/dL [facility] Bilirubin.conjugated [Mass/Vol] mg/dL 0 - 0.4 mg/dL [facility] Protein [Mass/Vol] 7.2 g/dL 6 - 8 g/dL [facility] Albumin [Mass/Vol] 4.0 g/dL 3.2 - 5.2 g/dL [facility] ALP [Catalytic activity/Vol] 95 U/L 40 - 140 U/L [facility] ALT [Catalytic activity/Vol] 20 U/L 14 - 65 U/L [facility] AST [Catalytic activity/Vol] 16 U/L 0 - 45 U/L [facility] Bilirubin [Mass/Vol] 0.2 mg/dL 0 - 1.3 mg/dL [facility] Bilirubin.conjugated [Mass/Vol] mg/dL 0 - 0.4 mg/dL [facility] Protein [Mass/Vol] 8.1 g/dL High 6 - 8 g/dL [facility] Lipaseon 08-27-2019 Interpretation and review of laboratory results Normal [facility] Lipase [Catalytic activity/Vol] 153 U/L 73 - 393 U/L [facility] Otheron 08-27-2019 Interpretation and review of laboratory results Normal [facility] Interpretation and review of laboratory results Abnormal [facility] URINALYSISon 08-27-2019 Bacteria Auto Ql (U) Rare Abnormal None Se en /hpf [facility] Bilirubin Ql (U) Negative Negative [facility] th Clarity Refractometry automated (U) Clear Clear [facility] Color (U) Yellow Colorless, Yellow [facility] Epithelial cells.squamous Auto (Urine sed) [#/Area] 2 [facility] Glucose Auto test strip (U) [Mass/Vol] Negative Negative mg/dL [facility] Hemoglobin Auto test strip Ql (U) Negative Negative [facility] Interpretation and review of laboratory results Abnormal [facility] Ketones (U) [Mass/Vol] Negative Negat zachary mg/dL [facility] Leukocyte esterase Auto test strip Ql (U) Trace Abnormal Negative [facility] Mucus Auto (Urine sed) [#/Area] Rare None Seen, Rare /lpf [facility] Nitrite Auto test strip Ql (U) Negative Negative [facility] pH (U) 6.0 [pH] [facility] Protein (U) [Mass/Vol] Negative Negat zachary mg/dL [facility] RBC Auto (Urine sed) [#/Area] 1 [facility] Specific gravity (U) [Rel density] 1.020 [facility] Transitional cells Computer assisted (U) [#/Area] <1 [facility] Urobilinogen (U) [Mass/Vol] <2.0 <2.0 mg/dL [facility] WBC Auto (Urine sed) [#/Area] 8 High [facility] Microscopic examination is performed on all urinalysis samples and only positive findings are reported. The test for blood on the chemical analytic portion of urinalysis may also be positive due to hemoglobinuria and myoglobinuria and if red blood cells are present they are quantified by microscopic examination. [facility] US ABDOMEN LIMITED STUDYon 0 08-27-2019 ABDOMEN LIMITED STUDY EXAMINATION: US ABDOMEN LIMITED STUDY HISTORY: ORDERING SYSTEM PROVIDED HISTORY: ruq pain, TECHNOLOGIST PROVIDED HISTORY: Illness/Other Reason for exam: RUQ pain x4 days - recurrent, nausea/vomiting Cancer History: u Surgery, RadiationHistory: u Encounter Type: Subsequent/Follow-up Additional signs and symptoms: None ORDERING SYSTEM PROVIDED DIAGNOSIS CODES: COMPARISON: CT scan same date TECHNIQUE: Ultrasound of the right upper quadrant abdomen. FINDINGS: Liver: Normal in size, contour and echogenicity. No intrahepatic biliary ductal dilatation. Gallbladder: Gallbladder is mildly distended. There are echogenic nonmobile shadowing gallstones within the gallbladder lumen. No pericholecystic fluid or gallbladder wall thickening. However, there is a positive sonographic Hughes's sign. Common bile duct: Normal in diameter, measuring 0.4 cm. Right kidney: Normal in size and echogenicity measuring 9.8 cm. No hydronephrosis or renal calculus. IMPRESSION: Cholelithiasis with findings equivocal for acute cholecystitis. If high clinical concern, a HIDA scan could be performed. Workstation ID: [id number] Dictated by: LALO AVENDANO on MonAug 27, 2019 7:57:08 AM EST Transcribed by: LALO AVENDANO on MonAug 27, 2019 7:57:08 AM EST Finalized by: LALO AVENDANO on MonAug 27, 2019 7:57:08 AM EST Normal [facility] Comment on above: Order Comment: Injur y/Trauma or Illness?:Illness/Other How long have you had these symptoms (acute/chronic)?:Acute Reason for exam?:RUQ pain x4 days - recurrent, nausea/vomiting Repeat ultrasound per ED doctor History of cancer?:u Surgeries, chemotherapy, or radiation?:u Type of Exam?:Subsequent/Follow-up Additional signs and symptoms?:None Cholesterol [Mass/Vol] Cholelithiasis wi th findings equivocal for acute cholecystitis. If high clinical concern, a HIDA scan could be performed. Workstation ID: [id number] [facility], Rad In [facility] - 08/27/2019 7:59 AM EST EXAMINATION: US ABDOMEN LIMITED STUDY HISTORY: ORDERING SYSTEM PROVIDED HISTORY: ruq pain, TECHNOLOGIST PROVIDED HISTORY: Illness/Other Reason for exam: RUQ pain x4 days - recurrent, nausea/vomiting Cancer History: u Surgery, RadiationHistory: u Encounter Type: Subsequent/Follow-up Additional signs and symptoms: None ORDERING SYSTEM PROVIDED DIAGNOSIS CODES: COMPARISON: CT scan same date TECHNIQUE: Ultrasound of the right upper quadrant abdomen. FINDINGS: Liver: Normal in size, contour and echogenicity. No intrahepatic biliary ductal dilatation. Gallbladder: Gallbladder is mildly distended. There are echogenic nonmobile shadowing gallstones within the gallbladder lumen. No pericholecystic fluid or gallbladder wall thickening. However, there is a positive sonographic Hughes's sign. Common bile duct: Normal in diameter, measuring 0.4 cm. Right kidney: Normal in size and echogenicity measuring 9.8 cm. No hydronephrosis or renal calculus. IMPRESSION: Cholelithiasis with findings equivocal for acute cholecystitis. If high clinical concern, a HIDA scan could be performed. Workstation ID: [id number] [facility] EXAMINATION: US ABDOMEN LIMITED STUDY HISTORY: ORDERING SYSTEM PROVIDED HISTORY: ruq pain, TECHNOLOGIST PROVIDED HISTORY: Illness/Other Reason for exam: RUQ pain x4 days - recurrent, nausea/vomiting Cancer History: u Surgery, RadiationHistory: u Encounter Type: Subsequent/Follow-up Additional signs and symptoms: None ORDERING SYSTEM PROVIDED DIAGNOSIS CODES: COMPARISON: CT scan same date TECHNIQUE: Ultrasound of the right upper quadrant abdomen. FINDINGS: Liver: Normal in size, contour and echogenicity. No intrahepatic biliary ductal dilatation. Gallbladder: Gallbladder is mildly distended. There are echogenic nonmobile shadowing gallstones within the gallbladder lumen. No pericholecystic fluid or gallbladder wall thickening. However, there is a positive sonographic Hughes's sign. Common bile duct: Normal in diameter, measuring 0.4 cm. Right kidney: Normal in size and echogenicity measuring 9.8 cm. No hydronephrosis or renal calculus. [facility] Small nonshadowing stones and sludge in the dependent gallbladder. Echogenic foci with some posterior shadowing may represent adherent small stones; polyp is also a diagnostic consideration however no definite vascularity is seen. No biliary ductal dilatation. No sonographic Hughes's sign. [facility] Workstation ID: [id number] [facility] EXAMINATION: US ABDOMEN LIMITED STUDY HISTORY: ORDERING SYSTEM PROVIDED HISTORY: RUQ abdominal pain, TECHNOLOGIST PROVIDED HISTORY: Illness/Other Reason for exam: RUQ pain and nausea x 4 days Cancer History: u Surgery, RadiationHistory: u Encounter Type: Initial Additional signs and symptoms: No ORDERING SYSTEM PROVIDED DIAGNOSIS CODES: R10.11 Right upper quadrant abdominal pain R11.0 Nausea COMPARISON: None. TECHNIQUE: Sonographic evaluation of the abdomen was performed by the technologist. Images are submitted for review. FINDINGS: PANCREAS: The proximal aspect of the pancreas is unremarkable. The distal aspect is obscured secondary to overlying bowel gas fat and technical factors. LIVER: The liver demonstrates normal echogenicity and echotexture. There is no focal hepatic mass lesion detected. No fat sparing GALLBLADDER AND BILIARY TREE: There is no pathologic-appearing wall thickening. There are small nonshadowing stones which may be present with a small amount of sludge in the dependent gallbladder however there are also echogenic foci along the gallbladder wall which do not definitively appear to be mobile. One of these demonstrates posterior acoustic shadowing on image 39. There is no vascularity identified. These foci measure less than 5 mm. The common bile duct measures 0.3 cm in diameter. There is no intrahepatic biliary ductal dilatation. RIGHT KIDNEY: The right kidney measures approximately 9.3 x 3.8 x 4.4 cm. Normal renal echotexture with no space-occupying lesions identified. No definite shadowing stones. No hydronephrosis. [facility], Rad In [facility] - 08/27/2019 3:18 AM EST EXAMINATION: US ABDOMEN LIMITED STUDY HISTORY: ORDERING SYSTEM PROVIDED HISTORY: RUQ abdominal pain, TECHNOLOGIST PROVIDED HISTORY: Illness/Other Reason for exam: RUQ pain and nausea x 4 days Cancer History: u Surgery, RadiationHistory: u Encounter Type: Initial Additional signs and symptoms: No ORDERING SYSTEM PROVIDED DIAGNOSIS CODES: R10.11 Right upper quadrant abdominal pain R11.0 Nausea COMPARISON: None. TECHNIQUE: Sonographic evaluation of the abdomen was performed by the technologist. Images are submitted for review. FINDINGS: PANCREAS: The proximal aspect of the pancreas is unremarkable. The distal aspect is obscured secondary to overlying bowel gas fat and technical factors. LIVER: The liver demonstrates normal echogenicity and echotexture. There is no focal hepatic mass lesion detected. No fat sparing GALLBLADDER AND BILIARY TREE: There is no pathologic-appearing wall thickening. There are small nonshadowing stones which may be present with a small amount of sludge in the dependent gallbladder however there are also echogenic foci along the gallbladder wall which do not definitively appear to be mobile. One of these demonstrates posterior acoustic shadowing on image 39. There is no vascularity identified. These foci measure less than 5 mm. The common bile duct measures 0.3 cm in diameter. There is no intrahepatic biliary ductal dilatation. RIGHT KIDNEY: The right kidney measures approximately 9.3 x 3.8 x 4.4 cm. Normal renal echotexture with no space-occupying lesions identified. No definite shadowing stones. No hydronephrosis. IMPRESSION: Small nonshadowing stones and sludge in the dependent gallbladder. Echogenic foci with some posterior shadowing may represent adherent small stones; polyp is also a diagnostic consideration however no definite vascularity is seen. No biliary ductal dilatation. No sonographic Hughes's sign. [facility] Workstation ID: [id number] [facility] US ABDOMEN LIMITED STUDY EXAMINATION: US ABDOMEN LIMITED STUDY HISTORY: ORDERING SYSTEM PROVIDED HISTORY: RUQ abdominal pain, TECHNOLOGIST PROVIDED HISTORY: Illness/Other Reason for exam: RUQ pain and nausea x 4 days Cancer History: u Surgery, RadiationHistory: u Encounter Type: Initial Additional signs and symptoms: No ORDERING SYSTEM PROVIDED DIAGNOSIS CODES: R10.11 Right upper quadrant abdominal pain R11.0 Nausea COMPARISON: None. TECHNIQUE: Sonographic evaluation of the abdomen was performed by the technologist. Images are submitted for review. FINDINGS: PANCREAS: The proximal aspect of the pancreas is unremarkable. The distal aspect is obscured secondary to overlying bowel gas fat and technical factors. LIVER: The liver demonstrates normal echogenicity and echotexture. There is no focal hepatic mass lesion detected. No fat sparing GALLBLADDER AND BILIARY TREE: There is no pathologic-appearing wall thickening. There are small nonshadowing stones which may be present with a small amount of sludge in the dependent gallbladder however there are also echogenic foci along the gallbladder wall which do not definitively appear to be mobile. One of these demonstrates posterior acoustic shadowing on image 39. There is no vascularity identified. These foci measure less than 5 mm. The common bile duct measures 0.3 cm in diameter. There is no intrahepatic biliary ductal dilatation. RIGHT KIDNEY: The right kidney measures approximately 9.3 x 3.8 x 4.4 cm. Normal renal echotexture with no space-occupying lesions identified. No definite shadowing stones. No hydronephrosis. IMPRESSION: Small nonshadowing stones and sludge in the dependent gallbladder. Echogenic foci with some posterior shadowing may represent adherent small stones; polyp is also a diagnostic consideration however no definite vascularity is seen. No biliary ductal dilatation. No sonographic Hughes's sign. [facility] Workstation ID: [id number] Dictated by: BALTAZAR MARIE on MonAug 27, 2019 12:45:08 AM EST Transcribed by: ALEXYS DUARTE on MonAug 27, 2019 1:21:59 AM EST Finalized by: BALTAZAR MARIE on MonAug 27, 2019 3:15:45 AM EST Normal [facility] Comment on above: Order Comment: US Ga llbladder Injury/Trauma or Illness?:Illness/Other How long have you had these symptoms (acute/chronic)?:Acute Reason for exam?:RUQ pain and nausea x 4 days History of cancer?:u Surgeries, chemotherapy, or radiation?:u Type of Exam?:Initial Additional signs and symptoms?:No Urine Pregnancyon 08-27-2019 HCG ( test) Ql (U) Negative Negative [facility] Interpretation and review of laboratory results Normal [facility] XR CHEST AP/PA AND LATon XR CHEST AP/PA AND LAT EXAMINATION: CHEST 2 VIEWS, 08/27/2019 HISTORY: Pleuritic chest discomfort COMPARISON: None. FINDINGS: Frontal and lateral views are submitted. Cardiac size, mediastinal contour, and pulmonary vascularity are within normal limits. The lungs and pleural spaces appear clear. The bony thorax is intact. IMPRESSION: Normal chest. Workstation ID: [id number] Dictated by: GERMAINE DON on MonAug 27, 2019 12:55:04 AM EST Transcribed by: GERMAINE DON on MonAug 27, 2019 12:55:04 AM EST Finalized by: GERMAINE DON on MonAug 27, 2019 12:55:04 AM EST Normal [facility] Comment on above: Order Comment: Injur y/Trauma or Illness?:Illness/Other How long have you had these symptoms (acute/chronic)?:Acute Reason for exam?:chest pain History of cancer?:u Surgeries, chemotherapy, or radiation?:u Type of Exam?:Initial Additional signs and symptoms?:n Normal chest. Workstation ID: [id number] [facility] EXAMINATION: CHEST 2 VIEWS, 08/27/2019 HISTORY: Pleuritic chest discomfort COMPARISON: None. FINDINGS: Frontal and lateral views are submitted. Cardiac size, mediastinal contour, and pulmonary vascularity are within normal limits. The lungs and pleural spaces appear clear. The bony thorax is intact. [facility] Jayde, Miguel In [facility] - 08/27/2019 12:57 AM EST EXAMINATION: CHEST 2 VIEWS, 08/27/2019 HISTORY: Pleuritic chest discomfort COMPARISON: None. FINDINGS: Frontal and lateral views are submitted. Cardiac size, mediastinal contour, and pulmonary vascularity are within normal limits. The lungs and pleural spaces appear clear. The bony thorax is intact. IMPRESSION: Normal [facility]. [id number] ABSOLUTE BAS 0.0 X10 Normal [facility] Comment on above: Performed By: #### A CBC, CMPF, LIPA2 #### Testing performed at [address] [address] ABSOLUTE EOS 0.00 X10 Normal [facility] Comment on above: Performed By: #### A CBC, CMPF, LIPA2 #### Testing performed at [address] [address] ABSOLUTE NEUTROPHIL COUNT 8.6 x10 High 1.0-7.0 [facility] Comment on above: Performed By: #### A CBC, CMPF, LIPA2 #### Testing performed at [address] [address] Basophils/100 WBC (Bld) 0.2 % Normal 0.0-2.0 [facility] Comment on above: Performed By: #### A CBC, CMPF, LIPA2 #### Testing performed at [address] [address] DTYPE AUTO DIFF Normal [facility] Comment on above: Performed By: #### A CBC, CMPF, LIPA2 #### Testing performed at [address] [address] Eosinophils/100 WBC (Bld) 0.2 % Normal 0.0-11.0 [facility] Comment on above: Performed By: #### A CBC, CMPF, LIPA2 #### Testing performed at [address] [address] Lymphocytes (Bld) [#/Vol] 0.50 X10 Normal [facility] Comment on above: Performed By: #### A CBC, CMPF, LIPA2 #### Testing performed at [address] [address] Lymphocytes/100 WBC (Bld) 5.6 % Low 20.0-55.0 [facility] Comment on above: Performed By: #### A CBC, CMPF, LIPA2 #### Testing performed at [address] [address] Monocytes (Bld) [#/Vol] 0.2 X10 Normal [facility] Comment on above: Performed By: #### A CBC, CMPF, LIPA2 #### Testing performed at [address] [address] Monocytes/100 WBC (Bld) 2.5 % Normal 0.0-10.0 [facility] Comment on above: Performed By: #### A CBC, CMPF, LIPA2 #### Testing performed at [address] [address] Neutrophils/100 WBC (Bld) 91.5 % High 37.0-75.0 [facility] Comment on above: Performed By: #### A CBC, CMPF, LIPA2 #### Testing performed at [address] [address] Erythrocyte distribution width (RBC) [Ratio] 13.7 % Normal 11.5-14.5 [facility] Comment on above: Performed By: #### A CBC, CMPF, LIPA2 #### Testing performed at [address] [address] Hematocrit (Bld) [Volume fraction] 41.2 % Normal 36.0-48.0 [facility] Comment on above: Performed By: #### A CBC, CMPF, LIPA2 #### Testing performed at [address] [address] Hemoglobin (Bld) [Mass/Vol] 14.2 g/dL Normal 12.0-16.0 [facility] Comment on above: Performed By: #### A CBC, CMPF, LIPA2 #### Testing performed at [address] [address] MCH (RBC) [Entitic mass] 29.7 pg Normal 26.0-35.0 [facility] Comment on above: Performed By: #### A CBC, CMPF, LIPA2 #### Testing performed at [address] [address] MCHC (RBC) [Mass/Vol] 34.6 g/dL Normal 27.0-37.0 [facility] Comment on above: Performed By: #### A CBC, CMPF, LIPA2 #### Testing performed at [address] [address] MCV (RBC) [Entitic vol] 85.9 fL Normal 80.0-100.0 [facility] Comment on above: Performed By: #### A CBC, CMPF, LIPA2 #### Testing performed at [address] [address] Platelet mean volume (Bld) [Entitic vol] 9.6 fL Normal 7.4-11.0 [facility] Comment on above: Performed By: #### A CBC, CMPF, LIPA2 #### Testing performed at [address] [address] Platelets (Bld) [#/Vol] 161 /cmm Normal 130.0-400.0 [facility] Comment on above: Performed By: #### A CBC, CMPF, LIPA2 #### Testing performed at [address] [address] RBC (Bld) [#/Vol] 4.80 /cmm Normal 4.0-5.4 [facility] Comment on above: Performed By: #### A CBC, CMPF, LIPA2 #### Testing performed at [address] [address] WBC (Bld) [#/Vol] 9.4 /cmm Normal 3.6-11.0 [facility] Comment on above: Performed By: #### A CBC, CMPF, LIPA2 #### Testing performed at [address] [address] CBC, EDIF, [employer] 2018 ABSOLUTE BASOPHIL COUNT 0.0 X10 [employer] Basophils/100 WBC (Bld) 0.2 % 0 - 2 % A [employer] Differential cell count method Nom (Bld) AUTO DIFF % [facility] Eosinophils (Bld) [#/Vol] 0.00 10*3/uL X10 [facility] [employer] Eosinophils/100 WBC (Bld) 0.2 % 0 - 11 % [facility] [employer] Erythrocyte distribution width (RBC) [Ratio] 13.7 % 11.5 - 14.5 % [facility] Hematocrit (Bld) [Volume fraction] 41.2 % 36 - 48 % [facility] [employer] Hemoglobin (Bld) [Mass/Vol] 14.2 g/dL [facility] Lymphocytes (Bld) [#/Vol] 0.50 10*3/uL X10 [facility] Lymphocytes/100 WBC (Bld) 5.6 % Low 20 - 55 % [facility] [employer] MCH (RBC) [Entitic mass] 29.7 pg 26 - 35 PG [facility] MCHC (RBC) [Mass/Vol] 34.6 g/dL [facility] MCV (RBC) [Entitic vol] 85.9 fL A [employer] Monocytes (Bld) [#/Vol] 0.2 10*3/uL X10 [facility] Monocytes/100 WBC (Bld) 2.5 % 0 - 10 % A [facility] [employer] Neutrophils (Bld) [#/Vol] 8.6 10*3/uL High [facility] Neutrophils/100 WBC (Bld) 91.5 % High 37 - 75 % [facility] Platelet mean volume (Bld) [Entitic vol] 9.6 fL [facility] Platelets (Bld) [#/Vol] 161 10*3/uL [facility] RBC (Bld) [#/Vol] 4.80 10*6/uL [facility] WBC (Bld) [#/Vol] 9.4 10*3/uL [facility] CMP FASTINGon 02-11-2019 A:G RATIO 1.1 RATIO Low 1.3-2.2 [facility] Comment on above: Performed By: #### A CBC, CMPF, LIPA2 #### Testing performed at [address] [address] Albumin [Mass/Vol] 4.1 G/dl Normal 3.5-5.0 [facility] Comment on above: Performed By: #### A CBC, CMPF, LIPA2 #### Testing performed at [address] [address] ALP [Catalytic activity/Vol] 50 U/L Normal 38-126 [facility] Comment on above: Performed By: #### A CBC, CMPF, LIPA2 #### Testing performed at [address] [address] ALT [Catalytic activity/Vol] 14 U/L Normal 14-54 [facility] Comment on above: Performed By: #### A CBC, CMPF, LIPA2 #### Testing performed at [address] [address] AST [Catalytic activity/Vol] 18 U/L Normal 15-41 [facility] Comment on above: Performed By: #### A CBC, CMPF, LIPA2 #### Testing performed at [address] [address] Bilirubin [Mass/Vol] 0.8 mg/dL Normal 0.2-1.2 [facility] Comment on above: Performed By: #### A CBC, CMPF, LIPA2 #### Testing performed at [address] [address] Creatinine [Mass/Vol] 0.56 mg/dL Normal 0.52-1.04 [facility] Comment on above: Performed By: #### A CBC, CMPF, LIPA2 #### Testing performed at [address] [address] EST. GFR, >60 Normal [facility] Comment on above: Performed By: #### A CBC, CMPF, LIPA2 #### Testing performed at [address] [address] EST. GFR,Non >60 Normal [facility] Comment on above: Performed By: #### A CBC, CMPF, LIPA2 #### Testing performed at [address] [address] GFR/1.73 sq M predicted among non-blacks MDRD (S/P/Bld) [Vol rate/Area] Average GFR for 20-29 years old = 116. Normal [facility] Comment on above: Result Comment: [employer] Kidney disease, GFR = <60. Kidney failure, GFR = <15. The GFR estimate is not adjusted for extreme body surface area or acute process, nor has it been validated for women or ethnic groups other than and . Performed By: #### A CBC, CMPF, LIPA2 #### Testing performed at [address] [address] Protein [Mass/Vol] 7.9 g/dL Normal 6.3-8.2 [facility] Comment on above: Performed By: #### A CBC, CMPF, LIPA2 #### Testing performed at [address] [address] Urea nitrogen [Mass/Vol] 9 mg/dL Normal 7-20 [facility] Comment on above: Performed By: #### A CBC, CMPF, LIPA2 #### Testing performed at [address] [address] Calcium [Mass/Vol] 9.3 mg/dL Normal 8.4-10.2 [facility] Comment on above: Performed By: #### A CBC, CMPF, LIPA2 #### Testing performed at [address] [address] Chloride [Moles/Vol] 103 mmol/L Normal 98-107 [facility] Comment on above: Performed By: #### A CBC, CMPF, LIPA2 #### Testing performed at [address] [address] CO2 [Moles/Vol] 21 mmol/L Low 22-30 [facility] Comment on above: Performed By: #### A CBC, CMPF, LIPA2 #### Testing performed at [address] [address] Glucose [Mass/Vol] 99 mg/dL Normal 70-100 [facility] Comment on above: Result Comment: NORMAL <100 mg/dL PREDIABETES 101-126 mg/dL DIABETES 126 mg/dL or higher Performed By: #### A CBC, CMPF, LIPA2 #### Testing performed at [address] [address] Potassium [Moles/Vol] 4.1 mmol/L Normal 3.5-5.1 [facility] Comment on above: Performed By: #### A CBC, CMPF, LIPA2 #### Testing performed at [address] [address] Sodium [Moles/Vol] 136 mmol/L Normal 136-145 [facility] Comment on above: Performed By: #### A CBC, CMPF, LIPA2 #### Testing performed at [address] [address] COMPREHENSIVE METABOLIC PANE Arnaldo 02-11-2019 Albumin [Mass/Vol] 4.1 G/dl 3.5 - 5 G/dl [facility] Albumin/Globulin [Mass ratio] 1.1 {ratio} Low [facility] ALP [Catalytic activity/Vol] 50 U/L [facility] ALT [Catalytic activity/Vol] 14 U/L [facility] AST [Catalytic activity/Vol] 18 U/L [facility] Bilirubin [Mass/Vol] 0.8 mg/dL [facility] Calcium [Mass/Vol] 9.3 mg/dL [facility] Chloride [Moles/Vol] 103 mmol/L [facility] CO2 [Moles/Vol] 21 mmol/L Low [facility] Creatinine [Mass/Vol] 0.56 mg/dL [facility] GFR/1.73 sq M predicted among blacks MDRD (S/P/Bld) [Vol rate/Area] mL/min/{1.73_m2} ml/min/1.73sq .m [facility] [employer] GFR/1.73 sq M predicted among non-blacks MDRD (S/P/Bld) [Vol rate/Area] mL/min/{1.73_m2} ml/min/1.73sq .m [facility] [employer] GFR/1.73 sq M predicted among non-blacks MDRD (S/P/Bld) [Vol rate/Area] Average GFR for 20-29 years old = 116. [employer] Comment on above: Chronic Kidney disea se, GFR = <60. Kidney failure, GFR = <15. The GFR estimate is not adjusted for extreme body surface area or acute process, nor has it been validated for women or ethnic groups other than and . Glucose post fast [Mass/Vol] 99 mg/dL [facility] [employer] Comment on above: NORMAL <100 mg/dL PREDIABETES 101-126 mg/dL DIABETES 126 mg/dL or higher Potassium [Moles/Vol] 4.1 mmol/L [facility] [employer] Protein [Mass/Vol] 7.9 g/dL [facility] [employer] Sodium [Moles/Vol] 136 mmol/L [facility] [employer] Urea nitrogen [Mass/Vol] 9 mg/dL [facility] [employer] LIPASEon 02-11-2019 Lipase [Catalytic activity/Vol] 25 U/L 23 - 300 U/L [facility] [employer] LIPASE,SERUMon 02-11-2019 LIPASE,SERUM 25 U/L Normal 23-300 [facility] Comment on above: Performed By: #### A CBC, CMPF, LIPA2 #### Testing performed at [address] [address] Otheron 02-11-2019 Interpretation and review of laboratory results Abnormal [facility] Interpretation and review of laboratory results Abnormal [facility] URINALYSIS, MACROon 02-12-20 19 Bilirubin Ql (U) SMALL [facility] Clarity (U) CLEAR CLEAR [facility] Color (U) YELLOW YELLOW [facility] Glucose Test strip (U) [Mass/Vol] Negative NEGATIVE mg/dl [facility] Hemoglobin Ql (U) Negative NEGATIVE [facility] Ketones (U) [Mass/Vol] >160 Abnormal NEGAT [facility] mg/dl [facility] Leukocyte esterase Test strip Ql (U) Negative NEGATIVE [facility] Nitrite Ql (U) Negative NEGATIVE [facility] pH (U) 5.5 [pH] [facility] Protein Ql (U) 30 mg/dl Abnormal NEGATIVE [facility] Specific gravity (U) [Rel density] >1.030 High [facility] Urobilinogen (U) [Mass/Vol] 0.2 mg/dl 0.2 - 1 mg/dl [facility] URINE MACROSCOPICon 02-12-20 19 Bilirubin Ql (U) SMALL Abnormal NEGATIVE [facility] Comment on above: Performed By: #### U MAC, UMIC #### Testing performed at [address] [place] [address] Clarity (U) CLEAR Normal CLEAR [facility] Comment on above: Performed By: #### U MAC, UMIC #### Testing performed at [address] [address] Color (U) YELLOW Normal YELLOW [facility] Comment on above: Performed By: #### U MAC, UMIC #### Testing performed at [address] [address] Glucose Ql (U) Negative Normal NEGATIVE [facility] Comment on above: Performed By: #### U MAC, UMIC #### Testing performed at [address] [address] pH (U) 5.5 [pH] Normal 5.0-7.0 [facility] Comment on above: Performed By: #### U MAC, UMIC #### Testing performed at [address] [place] [address] Protein (U) [Mass/Vol] 30 mg/dL Abnormal NEGATIVE [facility] Comment on above: Performed By: #### U MAC, UMIC #### Testing performed at [address] [address] URINE HEMOGLOBIN Negative Normal NEGATIVE [facility] Comment on above: Performed By: #### U MAC, UMIC #### Testing performed at [address] [place] [address] URINE KETONE >160 Abnormal NEGATIVE [facility] Comment on above: Performed By: #### U MAC, UMIC #### Testing performed at [address] [address] URINE LEUKOTEST Negative Normal NEGATIVE [facility] Comment on above: Performed By: #### U MAC, UMIC #### Testing performed at [address] [address] URINE NITRATES Negative Normal NEGATIVE [facility] Comment on above: Performed By: #### U MAC, UMIC #### Testing performed at [address] [address] URINE SPEC GRAVITY >1.030 High 1.010-1.025 [facility] Comment on above: Performed By: #### U MAC, UMIC #### Testing performed at [address] [address] Urobilinogen Qn (U) 0.2 mg/dl Normal 0.2-1.0 [facility] Comment on above: Performed By: #### U MAC, UMIC #### Testing performed at [address] [address] URINE MICROSCOPICon 02-12-20 19 Bacteria LM.HPF (Urine sed) [#/Area] TRACE Abnormal NEGATIVE [facility] Comment on above: Performed By: #### U MAC, UMIC #### Testing performed at [address] [address] Casts LM.LPF (Urine sed) [#/Area] NONE Normal NONE [facility] Comment on above: Performed By: #### U MAC, UMIC #### Testing performed at [address] [address] CRYSTAL NONE Normal NONE [facility] Comment on above: Performed By: #### U MAC, UMIC #### Testing performed at [address] [address] Epithelial cells LM.HPF (Urine sed) [#/Area] 20 TO 30 Normal [facility] Comment on above: Performed By: #### U MAC, UMIC #### Testing performed at [address] [address] Mucus Ql (Urine sed) Negative Normal NEGATIVE [facility] Comment on above: Performed By: #### U MAC, UMIC #### Testing performed at [address] [address] RBC (U) [#/Vol] 1 TO 5 Normal NEGATIVE [facility] Comment on above: Performed By: #### U MAC, UMIC #### Testing performed at [address] [address] URINE COMMENT POSSIBLY CONTAMINATE D SPECIMEN, CULTURE MUST BE ORDERED SEPARATELY IF DEEMED NECESSARY. Normal [facility] Comment on above: Performed By: #### U MAC, UMIC #### Testing performed at [address] [address] WBC (U) [#/Vol] Negative Normal NEGATIVE [facility] Comment on above: Performed By: #### U MAC, UMIC #### Testing performed at [address] [address] Bacteria LM.HPF (Urine sed) [#/Area] TRACE Abnormal NEGATIVE [facility] Casts LM.LPF (Urine sed) [#/Area] NONE NONE /LPF [facility] Crystals LM Nom (Urine sed) NONE NONE [facility] Epithelial cells LM Ql (Urine sed) 20 TO 30 /HPF [facility] Mucus Ql (Urine sed) Negative NEGATIVE [facility] RBC LM.HPF (Urine sed) [#/Area] 1 TO 5 NEGATIVE /HPF [facility] Urine sediment comments LM David (Urine sed) POSSIBLY CONTAMINATED SPECIMEN, CULTURE MUST BE ORDERED SEPARATELY IF DEEMED NECESSARY. [facility] WBC LM.HPF (Urine sed) [#/Area] Negative NEGATIVE /HPF [facility] Lab Miscellaneouson 08-10-19 Status See Ref Lab Report [facility] Comment on above: Order Comment: Rere c Disease panel #[id number] Performed By: #### 1 [id number] #### STACI Send Outs Subsection [address] [place] [address] Lab Miscellaneouson 08-08-19 Test Name [id number] [facility] Comment on above: Order Comment: Rere c Disease panel #[id number] Performed By: #### 1 [id number] #### STACI Send Outs Subsection [address] [place] [address] US Pelvis Non-OB Completeon 08-08-2018 US Pelvis Non-OB Complete Exam Date/Time: 08/08/2018 14:34 EST Reason for Exam: ABNORMAL CT SCAN;Abnormal CT Report STUDY: US Pelvis Non-OB Complete; US Transvaginal Non-OB; 08/08/2018 2:34 pm INDICATION: Abnormal CT. COMPARISON: None. ACCESSION NUMBER(S): [id number]; [id number] ORDERING CLINICIAN: Lilliam Wyatt TECHNIQUE: Multiple multiplanar static broussard scale, color and spectral waveform sonographic images of the pelvis were obtained. Transabdominal and endovaginal ultrasound was performed. FINDINGS: UTERUS: The uterus is 7.5 x 3.2 x 4.9 cm. No definite fibroids. ENDOMETRIUM: The endometrial stripe is unremarkable. There is an IUD within the endometrial canal. RIGHT ADNEXA: The right ovary is 34 x 19 x 27 mm and grossly unremarkable. LEFT ADNEXA: The left ovary is 36 x 24 x 32 mm and contains a complex cystic structure measuring 26 x 25 x 28 mm. Doppler flow preserved to the left ovary. CUL DE SAC: No free fluid. IMPRESSION: 1. Complex cystic structure arising from the left ovary may represent a hemorrhagic cyst. However recommend follow-up pelvic ultrasound in few menstrual cycle to re-evaluate and document resolution. 2. IUD. FINAL REPORT Dictated: 08/08/2018 2:58 pm Sherin Peter MD Signed (Electronic Signature): 08/08/2018 2:58 pm Signed by: Sherin Peter MD Technologist: UCHE [facility] US Transvaginal Non-OBon US Transvaginal Non-OB Exam Date/Time: 08/08/2018 14:34 EST Reason for Exam: Abnormal CT Report STUDY: US Pelvis Non-OB Complete; US Transvaginal Non-OB; 08/08/2018 2:34 pm INDICATION: Abnormal CT. COMPARISON: None. ACCESSION NUMBER(S): [id number]; [id number] ORDERING CLINICIAN: Lilliam Wyatt TECHNIQUE: Multiple multiplanar static broussard scale, color and spectral waveform sonographic images of the pelvis were obtained. Transabdominal and endovaginal ultrasound was performed. FINDINGS: UTERUS: The uterus is 7.5 x 3.2 x 4.9 cm. No definite fibroids. ENDOMETRIUM: The endometrial stripe is unremarkable. There is an IUD within the endometrial canal. RIGHT ADNEXA: The right ovary is 34 x 19 x 27 mm and grossly unremarkable. LEFT ADNEXA: The left ovary is 36 x 24 x 32 mm and contains a complex cystic structure measuring 26 x 25 x 28 mm. Doppler flow preserved to the left ovary. CUL DE SAC: No free fluid. IMPRESSION: 1. Complex cystic structure arising from the left ovary may represent a hemorrhagic cyst. However recommend follow-up pelvic ultrasound in few menstrual cycle to re-evaluate and document resolution. 2. IUD. FINAL REPORT Dictated: 08/08/2018 2:58 pm Sherin Peter MD Signed (Electronic Signature): 08/08/2018 2:58 pm Signed by: Sherin Peter MD Technologist: UCHE [facility] CT Abdomen/Pelvis w/ Contras ton 07-30-2018 CT Abdomen/Pelvis w/ Contrast Exam Date/Time: 07/30/2018 11:40 EST Reason for Exam: RIGHT LOWER QUAD ABD PAIN;Pain Report STUDY: CT Abdomen/Pelvis w/ Contrast; 07/30/2018 11:40 am INDICATION: Abdominal pain. COMPARISON: July 05, 2016 ACCESSION NUMBER(S): [id number] ORDERING CLINICIAN: Lilliam Wyatt TECHNIQUE: CT of the abdomen and pelvis was performed. Standard contiguous axial images were obtained at 3 mm slice thickness through the abdomen and pelvis. Coronal and sagittal reconstructions at 3 mm slice thickness were performed. 95 ml of contrast Omnipaque 350 were administered intravenously without immediate complication. Positive all contrast was given. FINDINGS: LOWER CHEST: The visualized lung base is unremarkable. The heart is normal in size without pericardial effusion. No pleural effusion is present. Visualized distal esophagus appears normal. ABDOMEN: LIVER: Liver is normal in size and attenuation. No focal lesions identified. BILE DUCTS: No intra or extrahepatic biliary ductal dilatation. GALLBLADDER: Gallbladder is unremarkable. PANCREAS: Pancreas is normal. SPLEEN: Spleen is normal. ADRENAL GLANDS: Bilateral adrenal glands are normal. Exam Date/Time: 07/30/2018 11:40 EST Report KIDNEYS AND URETERS: Bilateral kidneys are normal in size and enhance symmetrically. No focal lesions identified. No hydronephrosis. No nephrolithiasis. PELVIS: BLADDER: Urinary bladder is unremarkable. REPRODUCTIVE ORGANS: The uterus is unremarkable. An intrauterine device is noted and appears to be in proper position. There is a hyperdense cyst in the left ovary measuring up to 3.1 cm. Otherwise bilateral adnexa are unremarkable. BOWEL: The stomach, small and large bowel are normal in appearance without wall thickening or obstruction. The appendix is visualized and appears normal. VESSELS: Abdominal aorta and inferior vena cava are unremarkable. PERITONEUM/RETROPERIT ONEUM/LYMPH NODES: No ascites or free air, no fluid collection. No retroperitoneal or pelvic lymphadenopathy. BONES AND ABDOMINAL WALL: No acute osseous abnormality. No lytic or blastic lesions identified. Abdominal wall is unremarkable. IMPRESSION: 1. Hyperdense cystic lesion in the left ovary measuring up to 3.1 cm which could represent a hemorrhagic cyst. Further evaluation by obtaining a pelvic ultrasound is recommended for better characterization. 2. Otherwise unremarkable CT of the abdomen and pelvis with contrast. FINAL REPORT Dictated: 07/30/2018 2:12 pm Paul Walker MD Signed (Electronic Signature): 07/30/2018 2:12 pm Signed by: Paul Walker MD Technologist: ANGELICA Normal [facility] 07-24-2018 HCG.beta subunit Qn Negative Normal Negative [facility] Comment on above: Performed By: #### 2 [id number] #### STACI Chemistry Manual Subsection [address] [place] [address] NM Hepatobiliary Duct System Imaging w/EFon 07-02-2018 NM Hepatobiliary Duct System Imaging w/EF Exam Date/Time: 07/02/2018 10:23 EST Reason for Exam: RUQ PAIN DIARRHEA;Nausea Report STUDY: NM Hepatobiliary Duct System Imaging w/EF; 07/02/2018 10:23 am INDICATION: Nausea. COMPARISON: None. ACCESSION NUMBER(S): [id number] ORDERING CLINICIAN: Hanh Madrigal TECHNIQUE: DIVISION OF NUCLEAR MEDICINE HEPATOBILIARY SCAN (HIDA), QUANTITATIVE The patient received an intravenous dose of 5.3 mCi of Tc-99m mebrofenin (Choletec). Sequential images of the upper abdomen were then acquired over the next 60 minutes. An oral fatty meal of Ensure was then administered followed by an additional hour of imaging. Computer quantification of gallbladder emptying was also performed. FINDINGS: There is prompt accumulation of activity within the liver and normal subsequent excretion via the biliary ductal system into the small bowel. The gallbladder first visualizes at about 20 minutes after radiopharmaceutical injection and progressively fills. After fatty meal administration, there is prompt contraction of the gallbladder with further anterograde transit of activity into the small bowel. The gallbladder ejection fraction is calculated to be 51 % (normal above 38%). IMPRESSION: Normal hepatobiliary imaging with no sign of cystic duct obstruction or biliary dyskinesia. Images were interpreted at [facility]. FINAL REPORT Dictated: 07/02/2018 10:35 am Aguilar Montalvo MD Signed (Electronic Signature): 07/02/2018 10:35 am Signed by: Aguilar Montalvo MD Technologist: KW Normal [facility] CMPon 06-07-2018 Albumin mass conc 4.5 g/dL Normal 3.4-5.0 [facility] Comment on above: Performed By: #### 2 [id number] #### STACI [employer] [address] [place], [place] [id number] Albumin/Globulin mass ratio 1.8 {ratio} Normal 1.1-1.9 [facility] Comment on above: Performed By: #### 2 [id number] #### STACI [employer] [facility] [place] [address] Alk Phos 45 Int._Unit/L Normal 33-110 [facility] Comment on above: Performed By: #### 2 [id number] #### STACI [employer] [address] [place] [address] ALT enzyme act/vol 11 Int._Unit/L Normal 7-45 [facility] Comment on above: Performed By: #### 2 [id number] #### STACI [employer] [address] [place] [address] Anion gap molar conc 9 mmol/L Low 10-20 [facility] Comment on above: Performed By: #### 2 [id number] #### STACI [employer] [address] [place] [address] AST enzyme act/vol 15 Int._Unit/L Normal 9-39 [facility] Comment on above: Performed By: #### 2 [id number] #### STACI [employer] [address] [place] [address] Bili Total 0.44 mg/dL Normal 0.00-1.20 [facility] Comment on above: Performed By: #### 2 [id number] #### [facility] [employer] [address] [place] [address] Calcium mass conc 9.1 mg/dL Normal 8.6-10.3 [facility] Comment on above: Performed By: #### 2 [id number] #### [facility] [employer] [address] [place] [address] Chloride molar conc 106 mmol/L Normal 98-107 [facility] Comment on above: Performed By: #### 2 [id number] #### [facility] [employer] [address] [place] [address] CO2 molar conc 29.0 mmol/L Normal 21.0-32.0 [facility] Comment on above: Performed By: #### 2 [id number] #### STACI [employer] [address] [place] [address] Creatinine mass conc 0.8 mg/dL Normal 0.5-1.1 [facility] Comment on above: Performed By: #### 2 [id number] #### STACI [employer] [address] [place] [address] Globulin mass conc (S) 3.0 g/dL Normal 2.0-4.0 [facility] Comment on above: Performed By: #### 2 [id number] #### STACI [employer] [address] [place] [address] Glucose mass conc 78 mg/dL Normal 70-99 [facility] Comment on above: Performed By: #### 2 [id number] #### STACI [employer] [address] [place] [address] Potassium molar conc 4.0 mmol/L Normal 3.5-5.3 [facility] Comment on above: Performed By: #### 2 [id number] #### STACI [employer] [address] [place] [address] Protein mass conc 7.0 g/dL Normal 6.4-8.2 [facility] Comment on above: Performed By: #### 2 [id number] #### STACI [employer] [address] [place] [address] Sodium molar conc 140 mmol/L Normal 136-145 [facility] Comment on above: Performed By: #### 2 [id number] #### STACI [employer] [address] [place] [address] Urea nitrogen mass conc 11 mg/dL Normal 6-23 [facility] Comment on above: Performed By: #### 2 [id number] #### STACI [employer] [address] [place] [address] Urea nitrogen/Creatinine mass ratio 13.8 ratio Normal 5.4-30.0 [facility] Comment on above: Performed By: #### 2 [id number] #### STACI [employer] [address] [place] [address] Lipid Profileon 06-07-2018 Cholesterol in HDL mass conc 63 mg/dL Normal >=45 [facility] Comment on above: Performed By: #### 3 [id number] #### STACI [employer] [address] [place] [address] Cholesterol in LDL mass conc 79 mg/dL Normal 0-130 [facility] Comment on above: Result Comment: <100 OPTIMAL 100-129 NEAR / ABOVE OPTIMAL 130-159 BORDERLINE HIGH 160-189 HIGH >190 VERY HIGH CALC LDL NOT VALID WHEN TRIGLYCERIDE IS >400 MG/DL Performed By: #### 3 [id number] #### STACI [employer] [address] [place] [address] Cholesterol in VLDL mass conc 9 mg/dL Normal 0-40 [facility] Comment on above: Performed By: #### 3 [id number] #### STACI [employer] [address] [place] [address] Cholesterol mass conc 151 mg/dL Normal 0-189 [facility] Comment on above: Result Comment: TOTA L CHOLEESTEROL: <200 NORMAL 200 - 239 BORDERLINE HIGH >240 HIGH Performed By: #### 3 [id number] #### STACI [employer] [address] [place] [address] Triglyceride mass conc 46 mg/dL Normal 0-149 [facility] Comment on above: Result Comment: AGE DESIRABLE BORDERLINE HIGH 91 D - 9 Y 0 - 74 75 - 99 > 100 10 - 19 Y 0 - 89 90 - 129 > 130 20 -24 Y 0 - 114 115 - 149 > 150 > 25 0 - 149 150 - 199 200 - 499 Performed By: #### 3 [id number] #### STACI [employer] [address] [place] [address] eGFRon 06-07-2018 GFR/1.73 sq M predicted among non-blacks MDRD vol rate/area (S/P/Bld) mL/min/{1.73_m2} Normal [facility] Comment on above: Order Comment: Order added by Discern Expert. Performed By: #### 1 [id number] #### STACI [employer] [address] [place] [address] US Abdomen, Limitedon 2017 US Abdomen, Limited Exam Date/Time: 12/13/2017 09:08 EDT Reason for Exam: RIGHT UPPER QUAD PAIN ATTN: RUQ;RUQ Pain Report STUDY: US Abdomen, Limited; 12/13/2017 9:08 am INDICATION: RUQ Pain. COMPARISON: None. ACCESSION NUMBER(S): [id number] ORDERING CLINICIAN: Samreen John TECHNIQUE: Grayscale color and spectral Doppler ultrasound. FINDINGS: LIVER: The liver is normal in size, echogenicity, and echotexture. No intrahepatic masses. BILE DUCTS: No intrahepatic or extrahepatic bile duct dilatation. Common bile duct = 2 mm. GALLBLADDER: The gallbladder is normal, specifically there is no pericholecystic fluid, cholelithiasis, mural thickening or sonographic Hughes sign. PANCREAS: The visualized pancreatic head and body are unremarkable. The pancreatic tail is obscured by bowel gas. RIGHT KIDNEY: The right kidney is normal in size, without hydronephrosis. PERITONEUM: No upper abdominal ascites. IMPRESSION: Normal appearance of the gallbladder. No significant abnormality noted in the right upper quadrant. FINAL REPORT Dictated: 12/13/2017 10:19 am Mary Ramires MD Signed (Electronic Signature): 12/13/2017 10:19 am Signed by: Mary Ramires MD Technologist: [facility] Vital Signs Date Time Vital Sign Value Performing Clinician Facility 12-16-2024 13:25-0400 Body height 160.[address] Hanh Madrigal DO Work Phone[facility] 12-16-2024 13:25-0400 Body mass index (BMI) [Ratio] 27.8 kg/m2 Dr. Hanh Madrigal DO Work Phone: [facility] 12-16-2024 13:25-0400 Body weight 71.[address] Hanh Madrigal DO Work Phone: [facility] 12-16-2024 13:25-0400 Diastolic blood pressure 80 mm[Hg] Dr. Hanh Madrigal DO Work Phone: [facility] 12-16-2024 13:25-0400 Systolic blood pressure 119 mm[Hg] Dr. Hanh Madrigal DO Work Phone: [facility] 11-22-2024 13:34-0400 Body height 160.[address] Hanh Madrigal DO Work Phone: [facility] 11-22-2024 13:34-0400 Body mass index (BMI) [Ratio] 26.9 kg/m2 Dr. Hanh Madrigal DO Work Phone: [facility] 11-22-2024 13:34-0400 Body weight 69.[address] Hanh Madrigal DO Work Phone: [facility] 11-22-2024 13:34-0400 Diastolic blood pressure 79 mm[Hg] Dr. Hanh Madrigal DO Work Phone: [facility] 11-22-2024 13:34-0400 Systolic blood pressure 119 mm[Hg] Dr. Hanh Madrigal DO Work Phone: [facility] 10-25-2024 13:03-0400 Body height 160.[address] Hanh Madrigal DO Work Phone: [facility] 10-25-2024 13:03-0400 Body mass index (BMI) [Ratio] 26.9 kg/m2 Dr. Hanh Madrigal DO Work Phone: [facility] 10-25-2024 13:03-0400 Body weight 69.[address] Hanh Madrigal DO Work Phone: [facility] 10-25-2024 13:03-0400 Diastolic blood pressure 76 mm[Hg] Dr. Hanh Madrigal DO Work Phone: [facility] 10-25-2024 13:03-0400 Systolic blood pressure 119 mm[Hg] Dr. Hanh Madrigal DO Work Phone: [facility] 06-03-2024 15:18-0500 Body mass index (BMI) [Ratio] 27.46 kg/m2 Colt Pardo DO Work Phone: [facility] 06-03-2024 15:18-0500 Body weight 70.31 kg Colt Pardo DO Work Phone: [facility] 06-03-2024 15:18-0500 Diastolic blood pressure 72 mm[Hg] Colt Pardo DO Work Phone: [facility] 06-03-2024 15:18-0500 Heart rate 80 /min Colt Pardo DO Work Phone: [facility] 06-03-2024 15:18-0500 SaO2% (BldA) [Mass fraction] 98 % Colt Bensondevon DO Work Phone: [facility] 06-03-2024 15:18-0500 Systolic blood pressure 108 mm[Hg] Colt Pardo DO Work Phone: [facility] 05-06-2024 08:37-0500 Body height 160 cm Hanh Madrigal DO Work Phone: [facility] 05-06-2024 08:37-0500 Body mass index (BMI) [Ratio] 27.81 kg/m2 Hanh Howarderrayoer DO Work Phone: [facility] 05-06-2024 08:37-0500 Body weight 71.22 kg Hanh Madrigal DO Work Phone: [facility] 05-06-2024 08:37-0500 Diastolic blood pressure 70 mm[Hg] Hanh Madrigal DO Work Phone: [facility] 05-06-2024 08:37-0500 Heart rate 85 /min Hanh Madrigal DO Work Phone: [facility] 05-06-2024 08:37-0500 Systolic blood pressure 105 mm[Hg] Hanh Madrigal DO Work Phone: [facility] 10-30-2023 15:36-0400 Body height 160.[address] Hanh Madrigal Work Phone: [facility] 10-30-2023 15:36-0400 Body mass index (BMI) [Ratio] 32.4 kg/m2 Dr. Hanh Madrigal Work Phone: [facility] 10-30-2023 15:36-0400 Body weight [address] Hanh Madrigal Work Phone: [facility] 10-30-2023 15:36-0400 Diastolic blood pressure 82 mm[Hg] Dr. Hanh Madrigal Work Phone: [facility] 10-30-2023 15:36-0400 Systolic blood pressure 120 mm[Hg] Dr. Hanh Madrigal Work Phone: [facility] 10-30-2023 08:25-0400 Body height 160 cm Hanh Madrigal DO Work Phone: [facility] 10-30-2023 08:25-0400 Body mass index (BMI) [Ratio] 32.06 kg/m2 Hanh Madrigal DO Work Phone: [facility] 10-30-2023 08:25-0400 Body weight 82.1 kg Hanh Madrigal DO Work Phone: [facility] 10-30-2023 08:25-0400 Diastolic blood pressure 75 mm[Hg] Hanh Madrigal DO Work Phone: [facility] 10-30-2023 08:25-0400 Heart rate 94 /min Hanh Madrigal DO Work Phone: [facility] 10-30-2023 08:25-0400 Systolic blood pressure 115 mm[Hg] Hanh Madrigal DO Work Phone: [facility] 10-18-2023 15:55-0400 Body mass index (BMI) [Ratio] 31.5 kg/m2 Dr. Hanh Madrigal Work Phone: [facility] 10-18-2023 15:55-0400 Body weight 80.[address] Hanh Madrigal Work Phone: [facility] 10-18-2023 15:55-0400 Diastolic blood pressure 84 mm[Hg] Dr. Hanh Madrigal Work Phone: [facility] 10-18-2023 15:55-0400 Systolic blood pressure 118 mm[Hg] Dr. Hanh Madrigal Work Phone: [facility] 10-04-2023 16:08-0400 Body mass index (BMI) [Ratio] 31.1 kg/m2 Dr. Hanh Madrigal Work Phone: [facility] 10-04-2023 16:08-0400 Body weight 79.[address] Hanh Madrigal Work Phone: [facility] 10-04-2023 16:08-0400 Diastolic blood pressure 77 mm[Hg] Dr. Hanh Madrigal Work Phone: [facility] 10-04-2023 16:08-0400 Systolic blood pressure 116 mm[Hg] Dr. Hanh Madrigal Work Phone: [facility] 09-18-2023 08:27-0400 Body height 160.[address] Hanh Madrigal Work Phone: [facility] 09-18-2023 08:25-0400 Body mass index (BMI) [Ratio] 30.7 kg/m2 Dr. Hanh Madrigal Work Phone: [facility] 09-18-2023 08:25-0400 Body weight 78.[address] Hanh Madrigal Work Phone: [facility] 09-18-2023 08:25-0400 Diastolic blood pressure 77 mm[Hg] Dr. Hanh Madrigal Work Phone: [facility] 09-18-2023 08:25-0400 Systolic blood pressure 114 mm[Hg] Dr. Hanh Madrigal Work Phone: [facility] 08-21-2023 09:45-0500 Body mass index (BMI) [Ratio] 29 kg/m2 Dr. Hanh Madrigal Work Phone: [facility] 08-21-2023 09:45-0500 Body weight 74.[address] Hanh Madrigal Work Phone: [facility] 08-21-2023 09:45-0500 Diastolic blood pressure 77 mm[Hg] Dr. Hanh Madrigal Work Phone: [facility] 08-21-2023 09:45-0500 Systolic blood pressure 117 mm[Hg] Dr. Hanh Madrigal Work Phone: [facility] 07-28-2023 15:53-0500 Body mass index (BMI) [Ratio] 28 kg/m2 Dr. Hanh Madrigal Work Phone: [facility] 07-28-2023 15:53-0500 Body weight 71.[address] Hanh Madrigal Work Phone: [facility] 07-28-2023 15:53-0500 Diastolic blood pressure 73 mm[Hg] Dr. Hanh Madrigal Work Phone: [facility] 07-28-2023 15:53-0500 Systolic blood pressure 110 mm[Hg] Dr. Hanh Madrigal Work Phone: [facility] 06-28-2023 15:47-0500 Body mass index (BMI) [Ratio] 27.1 kg/m2 Dr. Hanh Madrigal Work Phone: [facility] 06-28-2023 15:47-0500 Body weight 69.[address] Hanh Madrigal Work Phone: [facility] 06-28-2023 15:47-0500 Diastolic blood pressure 79 mm[Hg] Dr. aHnh Madrigal Work Phone: [facility] 06-28-2023 15:47-0500 Systolic blood pressure 113 mm[Hg] Dr. Hanh Madrigal Work Phone: [facility] 05-22-2023 14:07-0500 Body height 160.[address] Hanh Madrigal Work Phone: [facility] 05-22-2023 14:07-0500 Body mass index (BMI) [Ratio] 26.2 kg/m2 Dr. aHnh Madrigal Work Phone: [facility] 05-22-2023 14:07-0500 Body weight 67.[address] Hanh Madrigal Work Phone: [facility] 05-22-2023 14:07-0500 Diastolic blood pressure 82 mm[Hg] Dr. Hanh Madrigal Work Phone: [facility] 05-22-2023 14:07-0500 Systolic blood pressure 128 mm[Hg] Dr. Hanh Madrigal Work Phone: [facility] 04-28-2023 09:39-0400 Body height 160.[address] Hanh Madrigal Work Phone: [facility] 04-28-2023 09:39-0400 Body mass index (BMI) [Ratio] 26.4 kg/m2 Dr. Hanh Madrigal Work Phone[facility] 04-28-2023 09:39-0400 Body weight 67.[address] Hanh Madrigal [facility] Phone[facility] 04-28-2023 09:39-0400 Diastolic blood pressure 85 mm[Hg] Dr. Hanh Madrigal Work Phone: [facility] 04-28-2023 09:39-0400 Systolic blood pressure 133 mm[Hg] Dr. Hanh Madrigal Work Phone: [facility] 03-03-2023 13:41-0400 Body height 160 cm Bruna Lupe VALUE STREAM LEADER.TELEVISION ANTENNA INSTALLER Work Phone: [facility] 03-03-2023 13:41-0400 Body weight 61.33 kg Bruna [place] VALUE STREAM LEADER.TELEVISION ANTENNA INSTALLER Work Phone: [facility] 03-03-2023 13:41-0400 Diastolic blood pressure 70 mm[Hg] Bruna [place] VALUE STREAM LEADER.TELEVISION ANTENNA INSTALLER Work Phone: [facility] 03-03-2023 13:41-0400 Systolic blood pressure 112 mm[Hg] Bruna Lupe VALUE STREAM LEADER.TELEVISION ANTENNA INSTALLER Work Phone: [facility] 08-08-2022 09:05-0500 Body height 160.02 cm Hanh L Oberhauser Work Phone: [facility] Work Phone: 08-08-2022 09:05-0500 Body mass index (BMI) [Ratio] 22.32 kg/m2 Hanh L Oberhauser Work Phone: [facility] Work Phone: 08-08-2022 09:05-0500 Body surface area Derived from formula 1.59 m2 Hanh L Oberhauser Work Phone: [facility] Work Phone: 08-08-2022 09:05-0500 Body weight 57.15 kg Hanh L Oberhauser Work Phone: [facility] Work Phone: 08-08-2022 09:05-0500 Diastolic blood pressure 70 mm[Hg] Hanh L Oberhauser Work Phone: [facility] Work Phone: 08-08-2022 09:05-0500 Heart rate 69 /min Hanh L Oberhauser Work Phone: [facility] Work Phone: 08-08-2022 09:05-0500 Systolic blood pressure 109 mm[Hg] Hanh L Oberhauser Work Phone: [facility] Work Phone: 04-19-2021 08:26-0400 Body height 160.02 cm Hanh L Oberhauser Work Phone: [facility] Work Phone: 04-19-2021 08:26-0400 Body mass index (BMI) [Ratio] 23.74 kg/m2 Hanh L Oberhauser Work Phone: [facility] Work Phone: 04-19-2021 08:26-0400 Body surface area Derived from formula 1.63 m2 Hanh L Oberhauser Work Phone: [facility] Work Phone: 04-19-2021 08:26-0400 Body temperature 97.8 [degF] Hanh L Oberhauser Work Phone: [facility] Work Phone: 04-19-2021 08:26-0400 Body weight 60.78 kg Hanh L Oberhauser Work Phone: [facility] Work Phone: 04-19-2021 08:26-0400 Diastolic blood pressure 70 mm[Hg] Hanh L Oberhauser Work Phone: [facility] Work Phone: 04-19-2021 08:26-0400 Heart rate 67 /min Hanh L Oberhauser Work Phone: [facility] Work Phone: 04-19-2021 08:26-0400 Systolic blood pressure 115 mm[Hg] Hanh L Oberhauser Work Phone: [facility] Work Phone: 07-05-2020 08:27-0500 BMI (Body Mass Index) 21.26 kg/m2 Teresa [facility] 07-05-2020 08:27-0500 Body Temperature 98.4 [degF] Teresa [facility] 07-05-2020 08:27-0500 [facility] 08:27-[facility]00 BP Diastolic 86 mm[Hg[facility] 08:27-0500 BP Systolic 120 mm[Hg] Teresa [facility] 07-05-2020 08:27-0500 Height 160 cm [facility] 07-05-2020 08:27-0500 Pulse (Heart Rate) 89 /min [facility] 07-05-2020 08:27-0500 Pulse Oximetry 96 % [facility] 07-05-2020 08:27-0500 Respiratory Rate 16 /min [facility] 07-02-2020 15:45-0500 BP Diastolic 83 mm[Hg] [facility] 07-02-2020 15:45-0500 BP Systolic 124 mm[Hg] [facility] 07-02-2020 15:45-0500 Pulse Oximetry 98 % [facility] 07-02-2020 13:55-0500 Pulse (Heart Rate) 85 /min [facility] 07-02-2020 13:55-0500 Respiratory Rate 16 /min [facility] 07-02-2020 08:27-0500 Body Temperature 98.01 [degF] [facility] 07-02-2020 08:26-0500 BMI (Body Mass Index) 21.26 kg/m2 [facility] 07-02-2020 08:26-0500 Body weight 54.[address] [facility] 07-02-2020 08:26-[address] [facility] 09-06-2019 10:49-0500 BMI (Body Mass Index) 24.09 kg/m2 [facility] 09-06-2019 10:49-0500 Body Temperature 97.5 [degF] [facility] 09-06-2019 10:49-0500 Body weight 61.69 kg [facility] 09-06-2019 10:49-0500 BP Diastolic 80 mm[Hg] [facility] 09-06-2019 10:49-0500 BP Systolic 110 mm[Hg] [facility] 09-06-2019 10:49-0500 Pulse (Heart Rate) 113 /min Kendell Egan [facility] 08-28-2019 08:00-0500 Respiratory Rate 14 /min Corey Marie [facility] 08-28-2019 06:52-0500 Body Temperature 98.1 [degF] Corey Marie [facility] 08-28-2019 06:52-0500 BP Diastolic 69 mm[Hg] Corey Marie [facility] 08-28-2019 06:52-0500 BP Systolic 107 mm[Hg] Corey Marie [facility] 08-28-2019 06:52-0500 Pulse (Heart Rate) 77 /min Corey Marie [facility] 08-28-2019 06:52-0500 Pulse Oximetry 96 % Corey Marei [facility] 08-27-2019 13:54-0500 BMI (Body Mass Index) 24.8 kg/m2 Corey Marie [facility] 08-27-2019 13:54-0500 Body weight 63.5 kg Corey Marie [facility] 08-27-2019 13:54-0500 Height 160 cm Corey Marie [facility] 08-27-2019 01:18-0500 BP Diastolic 78 mm[Hg] Mendoza Hull [facility] 08-27-2019 01:18-0500 BP Systolic 137 mm[Hg] Mendoza Hull [facility] 08-27-2019 01:18-0500 Pulse (Heart Rate) 54 /min Mendoza Hull [facility] 08-27-2019 01:18-0500 Pulse Oximetry 99 % Mendoza Hull [facility] 08-27-2019 01:18-0500 Respiratory Rate 15 /min Mendoza Hull [facility] 08-26-2019 23:55-0500 Body Temperature 97.7 [degF] Mendoza Hull [facility] 02-11-2019 21:51-0400 Body Temperature 98.01 [degF] [facility] 02-11-2019 21:51-0400 BP Diastolic 56 mm[Hg] [facility] 02-11-2019 21:51-0400 BP Systolic 98 mm[Hg] [facility] 02-11-2019 21:51-0400 Pulse (Heart Rate) 98 /min [facility] 02-11-2019 21:51-0400 Respiratory Rate 18 /min [facility] 02-11-2019 21:42-0400 Pulse Oximetry 100 % [facility] 02-11-2019 19:48-0400 BMI (Body Mass Index) 25.51 kg/m2 [facility] 02-11-2019 19:48-0400 Body weight 65.32 kg [facility] 02-11-2019 19:48-0400 Height 160 cm [facility] Encounters Encounter Date Encounter Type Care Provider Facility Start: 12-16-2024 End: 12-16-2024 Patient encounter procedure Mercy Avendano CNM -[facility] Work Phone: Start: 12-16-2024 End: 12-16-2024 ambulatory Hanh chon Facility:[facility] Start: 11-22-2024 End: 11-22-[address] Mariely Nash DO -[facility] Work Phone: Start: 11-22-2024 End: 11-22-[address] Hanh Madrigal DO Work Phone: [facility] Work Phone: Start: 11-22-2024 End: 11-22-2024 ambulatory Mariely Nash Facility[facility] Start: 11-01-2024 End: 11-01-[address] Hanh Madrigal DO Work Phone: [facility] Work Phone: Start: 11-01-2024 End: 11-01-2024 Patient encounter procedure Mercy Avendano CNM -Lab, [facility] Start: 11-01-2024 End: 11-01-2024 ambulatory Mercy Avendano Facility[facility] Start: 10-25-2024 End: 10-25-2024 Patient encounter procedure Mercy Avendano CNM -Laboratory, Specimen Work Phone: Start: 10-25-2024 End: 10-25-2024 Patient encounter procedure Mercy Avendano CNM [facility] Work Phone: Start: 10-25-2024 End: 10-25-2024 ambulatory Mercy Avendano Facility:[facility] Start: 10-25-2024 End: 10-25-2024 ambulatory Mercy Sahil [facility] Start: 10-11-2024 End: 10-11-2024 Orders Only Audi Butcher TELEVISION ANTENNA INSTALLER Work Phone: [facility] Start: 10-07-2024 End: 10-07-2024 Refill Anuja Dumont LPN [facility] Comment on above: B12 deficiency (Prim ross Dx) Start: 09-26-2024 End: 09-26-2024 ambulatory AUDI BUTCHER [facility] Start: 09-26-2024 End: 09-26-2024 Encounter for general adult medical examination without abnormal findings AUDI DOYLE [facility] Start: 09-02-2024 End: 09-02-2024 Office outpatient visit 15 minutes Colt Pardo DO Work Phone: [facility] Comment on above: Bile salt-induced di arrhea (HHS-HCC) (Primary Dx) Start: 09-02-2024 End: 09-02-2024 ambulatory [facility] Start: 06-13-2024 End: 06-13-2024 ambulatory [facility] Start: 06-03-2024 End: 06-03-2024 Office outpatient new 30 minutes Colt Bensonae DO Work Phone: [facility] Comment on above: Bile salt-induced di arrhea (HHS-HCC) (Primary Dx); Functional diarrhea Start: 06-03-2024 End: 06-03-2024 ambulatory [facility] Start: 05-13-2024 End: 05-13-2024 Emergency department patient visit HANH MADRIGAL [facility] Start: 05-08-2024 End: 05-08-2024 ambulatory [facility] Start: 05-06-2024 End: 05-06-2024 ambulatory [facility] Ambulatory Start: 05-06-2024 End: 05-06-2024 Patient encounter status Hanh Madrigal DO Work Phone: [facility] Work Phone: Start: 05-06-2024 End: 05-06-2024 Periodic preventive med est patient 18-39 yrs Hanh Madrigal DO Work Phone: [facility] Comment on above: B12 deficiency (Prim ross Dx); Wellness examination Start: 04-26-2024 End: 04-26-2024 [facility] Start: 04-17-2024 End: 04-17-2024 ambulatory [facility] Start: 04-03-2024 End: 04-03-2024 ambulatory LIYA Peña [facility] Start: 03-27-2024 End: 03-27-2024 ambulatory [facility] Start: 03-20-2024 End: 03-20-2024 ambulatory [facility] Start: 12-29-2023 End: 12-29-2023 ambulatory [facility] Start: 11-03-2023 End: 11-03-[address] Hanh Madrigal Work Phone: [facility] Work Phone: Start: 11-03-2023 End: 11-03-[address] Hanh Madrigal Work Phone: [facility] Work Phone: Start: 10-30-2023 End: 10-30-[address] Hanh Madrigal Work Phone: [facility] Work Phone: Start: 10-30-2023 End: 10-30-2023 Patient encounter status Hanh Madrigal DO Work Phone: [facility] Work Phone: Start: 10-30-2023 End: 10-30-2023 Periodic preventive med est patient 18-39 yrs Hanh Madrigal DO Work Phone: [facility] Comment on above: Anxiety (Primary Dx) ; Wellness examination; Screening for lipid disorders; Vitamin B 12 deficiency Start: 10-30-2023 End: 10-30-2023 ambulatory [facility] Start: 10-30-2023 End: 10-30-2023 Encounter for general adult medical examination without abnormal findings [facility] Start: 10-18-2023 End: 10-18-[address] Hanh Madrigal Work Phone: [facility] Work Phone: Start: 10-04-2023 End: 10-04-[address] Hanh Madrigal Work Phone: [facility] Work Phone: Start: 09-30-2023 End: 09-30-2023 ambulatory HANH [facility] Start: 09-30-2023 End: 09-30-2023 Encounter for general adult medical examination without abnormal findings [facility] Start: 09-18-2023 End: 09-18-[address] Hanh Madrigal Work Phone: [facility] Work Phone: Start: 09-18-2023 End: 09-18-[address] Hanh Madrigal Work Phone: [facility] Work Phone: Start: 08-21-2023 End: 08-21-2023 ambulatory LIYA F ELO[facility] Start: 08-21-2023 End: 08-21-[address] Hanh Madrigal Work Phone: [facility] Work Phone: Start: 07-31-2023 End: 07-31-2023 [facility] Start: 07-28-2023 End: 07-28-[address] Hanh Madrigal Work Phone: [facility] Work Phone: Start: 06-28-2023 End: 06-28-[address] Hanh Madrigal Work Phone: [facility] Work Phone: Start: 05-22-2023 End: 05-22-[address] Hanh Madrigal Work Phone: [facility] Work Phone: Start: 05-20-2023 End: 05-20-[address] Hanh Madrigal Work Phone: [facility] Work Phone: Start: 05-20-2023 End: 05-20-[address] Hanh Madrigal Work Phone: [facility] Work Phone: Start: 05-01-2023 End: 05-01-2023 Office outpatient visit 15 minutes Hanh Madrigal DO Work Phone: [facility] Comment on above: B12 deficiency (Prim ross Dx) Start: 04-28-2023 End: 04-28-[address] Hanh Madrigal Work Phone: [facility] Work Phone: Start: 04-28-2023 End: 04-28-[address] [facility] Work [facility] Start: 04-28-2023 End: 04-28-[address] Hanh Madrigal Work Phone: [facility] Work Phone: Start: 04-05-2023 End: 04-05-[address] Hanh Madrigal Work Phone: [facility] Work Phone: Start: 04-03-2023 End: 04-03-[address] Hanh Madrigal Work Phone: [facility] Work Phone: Start: 03-03-2023 End: 03-03-2023 ambulatory [facility] Facility:[facility] Start: 03-03-2023 End: 03-03-2023 Patient encounter procedure Bruan Lupe VALUE STREAM LEADER.TELEVISION ANTENNA INSTALLER Work Phone: OB/Gynecology Comment on above: Encounter to [facility] (Primary Dx) Start: 08-24-2022 End: 08-24-2022 ambulatory [facility] Work Phone: Start: 08-24-2022 End: 08-24-2022 Patient encounter procedure [facility] Start: 08-08-2022 Periodic preventive med est patient 18-39 yrs Hanh Madrigal Work Phone: [facility] Work Phone: Start: 08-08-[address] Hanh Madrigal Facility:[id number] Start: 02-07-[address] Hanh Madrigal Facility:[id number] Start: 09-28-2021 End: 09-28-2021 Patient encounter procedure [facility] Start: 08-23-[address] Hanh Madrigal Facility:[id number] Start: 04-19-2021 Office outpatient vi sit 25 minutes Hanh Madrigal Work Phone: [facility] Work Phone: Start: 04-07-2021 Rx Renewal Hanh Davalos user Work Phone: [facility] Work Phone: Start: 07-05-2020 End: 07-05-2020 Emergency department patient visit Teresa Stack Work Phone: [facility] Emergency Department Comment on above: Exposure to COVID-19 virus (Primary Dx); Acute URI Start: 07-02-2020 End: 07-02-2020 Emergency department patient visit HANH [facility] Start: 07-02-2020 End: 07-02-2020 Emergency department patient visit Yannick Rene Work Phone: [facility] Emergency Department Comment on above: Right ovarian pregna ncy without intrauterine (Primary Dx) Start: 09-06-2019 End: 09-06-2019 Postop follow up visit related to original px Kendell Egan Work Phone: [facility] Comment on above: Encounter for surgic al aftercare following surgery of digestive system (Primary Dx) Start: 08-27-2019 End: 08-28-2019 Patient encounter procedure KENDELL EGAN [facility] Start: 08-27-2019 End: 08-28-2019 Emergency department patient visit Corey Kevin Marie Work Phone: [facility] Med Surg Oncology Comment on above: Acute cholecystitis (Primary Dx); Post-op pain; Calculus of gallbladder with acute cholecystitis and obstruction Start: 08-27-2019 End: 08-27-2019 Emergency department patient visit [facility] Start: 08-26-2019 End: 08-27-2019 Emergency department patient visit Mendoza Hull Work Phone: [facility] Emergency Department Comment on above: Gallbladder colic (P rimary Dx); Right upper quadrant abdominal pain; Nausea; Gallbladder sludge Start: 02-11-2019 End: 02-11-2019 Emergency department patient visit Hanh Leechon [facility] Emergency Department Start: 08-08-2018 End: 08-09-2018 Patient encounter procedure Hanh Danjuan Facility:[facility] Start: 08-08-2018 End: 08-09-2018 Patient encounter procedure Lilliam Wyatt Facility:[facility] Start: 07-30-2018 End: 07-31-2018 Patient encounter procedure Lilliam Wyatt Facility:[facility] Start: 07-25-2018 End: 07-25-2018 Patient encounter procedure Lilliam Wyatt Facility:[facility] Start: 07-24-2018 End: 07-25-2018 Patient encounter procedure Lilliam Wyatt Facility:[facility] Start: 07-16-2018 Patient encounter procedure Lilliam Wyatt Facility:[facility] Start: 07-12-2018 End: 07-13-2018 Patient encounter procedure Lilliam Wyatt Facility:[facility] Start: 07-02-2018 End: 07-03-2018 Patient encounter procedure Hanh Madrigal Facility:[facility] Start: 06-07-2018 End: 06-08-2018 Patient encounter procedure Hanh Danrayoslick Facility:[facility] Start: 06-05-2018 End: 06-06-2018 Patient encounter procedure Hanh David Nijuan Facility:[facility] Start: 05-16-2018 Patient encounter procedure Hanh Madrigal Facility:[facility] Start: 01-04-2018 End: 01-05-2018 Patient encounter procedure Samreen John Facility:[facility] Start: 12-13-2017 End: 12-14-2017 Patient encounter procedure Samreen John Facility:[facility] Start: 11-28-2017 End: 11-29-2017 Patient encounter procedure Samreen John Facility:[facility] Procedures Date Procedure Procedure Detail Performing Clinician Start: 11-01-2024 Hepatitis C antibody measurement Dr. Hanh Madrigal DO Work Phone: Comment on above: Reactive: Presumptiv e evidence of antibodies to HCV. Follow CDC recommendations for supplemental testing.Non-Reactive: Antibodies to HCV were not detected; does not exclude the possibility of exposure to HCVReactive Results are presumptive evidence of antibodies to HCV. Follow CDC recommendations for supplemental testing.Order confirmation testing: HCV Quant by PCR testing - HCVPCR #[id number] Non Reactive: < 0.8 Equivocal: >/= 0.8 to < 1.0 Reactive: >/= 1.0The [facility] requires that a reactive/equivocal HCV antibody result be sent out for confirmation. HCV Quant by PCR testing. Start: 11-01-[address] Hanh Madrigal DO Work Phone: Start: 11-01-[address] Hanh Madrigal DO Work Phone: Comment on above: Antibody Result: Int erpretationNon-Reactive: Non- ImmuneReactive: ImmuneThe following results were obtained with the [employer] Rubella IgG assay. Results from assays of other manufacturers cannot be used interchangeably. Start: 11-01-2024 Serologic test for syphilis Dr. Hanh Madrigal DO Work Phone: Start: 10-25-2024 Liquid based cervica l cytology screening Dr. Hanh Madrigal DO Work Phone: Comment on above: NEGATIVE FOR INTRAEP ITHELIAL LESION OR MALIGNANCY. This liquid based Th inPrep(R) pap test was screened withthe use of an image guided system. The HPV DNA reflex c kendra were not met with this specimenresult therefore, no HPV testing was performed.Performed at: [address] [id number] Director: Yu Martin MD, Phone: [phone] Start: 10-25-[address] Hanh Madrigal DO Work Phone: Start: 09-02-2024 Follow-up visit Follow-up COLT PARDO Start: 04-26-2024 Lipid 1996 panel - S isabel or Plasma Hanh Madrigal DO Work Phone: Start: 11-03-2023 Ultrasound scan for growth Dr. Hanh Madrigal Work Phone: Start: 09-30-2023 Comprehensive metabo lic 2000 panel - Serum or Plasma HANH MADRIGAL Start: 09-30-2023 Cyanocobalamin vitamin b-12 HANH MDARIGAL Start: 09-30-2023 Hemoglobin A1c/Hemoglobin.total in Blood HANH MADRIGAL Start: 09-30-2023 Lipid panel HANH ANAYA Start: 09-30-2023 Lipid 1996 panel - S isabel or Plasma Hanh Madrigal DO Work Phone: Start: 04-28-[address] Hanh Madrigal Work Phone: Start: 08-24-2022 Bilateral mammography Start: 08-24-2022 Ultrasonography of breast Start: 09-28-2021 Microscopic observat ion [Identifier] in Cervix by Cyto stain Hanh Madrigal DO Work Phone: Start: 09-14-2020 Microscopic observat ion [Identifier] in Cervix by Cyto stain Hanh Madrigal DO Work Phone: Start: 07-05-2020 COVID-19, MOLECULAR Kaden bhargavi Bruna Stack Work Phone: Start: 07-02-2020 Transvaginal obstetr ic ultrasonography Linda Greenwood Work Phone: Start: 07-02-2020 ABO and Rh group [Ty pe] in Blood Linda Greenwood Work Phone: Start: 07-02-2020 Choriogonadotropin ( test) [Presence] in Urine Linda Greenwood Work Phone: Start: 07-02-2020 Urinalysis Linda Greenwood Work Phone: Start: 07-02-2020 Basic metabolic 1998 panel - Serum or Plasma Yannick Rene Work Phone: Start: 07-02-2020 Choriogonadotropin [Units/volume] in Serum or Plasma Linda Greenwood Work Phone: Start: 07-02-2020 Complete blood count with white cell differential, automated Yannick Rene Work Phone: Start: 07-02-2020 Complete blood count with white cell differential, manual Yannick Rene Work Phone: Start: 07-02-2020 Hepatic function 200 0 panel - Serum or Plasma Yannick Rene Work Phone: Start: 07-02-2020 LAVENDER TOP Yannick Rm l Work Phone: Start: 07-02-2020 Lipase [Enzymatic activity/volume] in Serum or Plasma Yannick Rene Work Phone: Start: 07-02-2020 MINT GREEN TOP Yannick Pa tel Work Phone: Start: 07-02-2020 RAINBOW DRAW Yannick Rm l Work Phone: Start: 08-28-2019 Basic metabolic 2000 panel - Serum or Plasma Cindy De Paz Work Phone: Start: 08-28-2019 Complete blood count (hemogram) panel - Blood by Automated count Cindy De Paz Work Phone: Start: 08-27-2019 End: 08-27-2019 CHOLECYSTECTOMY LAPAROSCOPIC Kendell N. S dixfield Work Phone: Start: 08-27-2019 RAINBOW DRAW Concepcion Leora Arceo Work Phone: Start: 08-27-2019 URINE CONTAINER Concepcion A nne Arceo Work Phone: Start: 08-27-2019 Basic metabolic 2000 panel - Serum or Plasma Concepcion Leora Arceo Work Phone: Start: 08-27-2019 Choriogonadotropin.b eta subunit ( test) [Presence] in Serum or Plasma Concepcion Leora Arceo Work Phone: Start: 08-27-2019 Complete blood count with white cell differential, automated Concepcion Leora Arceo Work Phone: Start: 08-27-2019 Complete blood count with white cell differential, manual Concepcion Leora Arceo Work Phone: Start: 08-27-2019 Hepatic function 200 0 panel - Serum or Plasma Concepcion Leora Arceo Work Phone: Start: 08-27-2019 US scan of upper abdomen Corey Marie Work Phone: Start: 08-27-2019 Ct angiography chest w/contrast/noncontrast Mendoza Hull Work Phone: Start: 08-27-2019 Standard chest X-ray Lisy ozzie Hull Work Phone: Start: 08-27-2019 US scan of upper abdomen Mendoza Hull Work Phone: Start: 08-27-2019 Choriogonadotropin ( test) [Presence] in Urine Mendoza Hull Work Phone: Start: 08-27-2019 Urinalysis Mendoza Hull Work Phone: Start: 08-27-2019 Basic metabolic 1998 panel - Serum or Plasma Mendoza Hull Work Phone: Start: 08-27-2019 Complete blood count with white cell differential, automated Mendoza Hull Work Phone: Start: 08-27-2019 Complete blood count with white cell differential, manual Mendoza Hull Work Phone: Start: 08-27-2019 D-dimer assay, quantitative Mendoza Hull Work Phone: Start: 08-27-2019 Hepatic function 200 0 panel - Serum or Plasma Mendoza Hull Work Phone: Start: 08-27-2019 Lipase [Enzymatic activity/volume] in Serum or Plasma Mendoza Hull Work Phone: Start: 02-12-2019 Urinalysis microscopic only Michelle Longoria Work Phone: Start: 02-12-2019 URINALYSIS, MACRO [place] ca Allen Longoria Work Phone: Start: 02-12-2019 Assay of lipase Michelle Longoria Work Phone: Start: 02-12-2019 CBC, EDIF, PLATELET Isabella sabina Allen Longoria Work Phone: Start: 02-12-2019 Comprehensive metabolic panel Michelle Longoria Work Phone: No history of surgery Hanh Danrayoslick Work Phone: Plan of Treatment Date Care Activity Detail Author Start: 2045 Zoster Vaccines (1 of 2) Zoste r Vaccines (1 of 2) [facility] Start: 10-05-2033 DTaP/Tdap/Td Vaccine s (10 - Td or Tdap) DTaP/Tdap/Td Vaccines (10 - Td or Tdap) [facility] Start: 10-05-2033 DTaP/Tdap/Td Vaccine s (9 - Td or Tdap) DTaP/Tdap/Td Vaccines (9 - Td or Tdap) [facility] Start: 10-05-2033 Tetanus vaccination Tetanus: Every 1 0yrs [facility] Start: 04-26-2029 Lipid panel Lipid Panel [facility] Start: 09-29-2028 Lipid panel Lipid Panel [facility] Start: 09-30-2025 End: 09-30-2025 Patient encounter procedure 09/30/2025 3:00 PM EDT Office Visit [facility] Physician [facility] [address] [place] [phone] Audi Butcher, TELEVISION [employer]TENNA INSTALLER [address] [place] [phone] [facility] Physician [facility] Start: 09-30-2025 COVID-19 Vaccine ( season) COVID-19 Vaccine ( season) [facility] Comment on above: Postponed from 03/03 (Treatment Not Available) Start: 09-26-2025 Depression screening using PHQ-9 (Patient Health Questionnaire 9) score Depression Screening/Follow-Up (PHQ-2/9) [facility] Start: 09-26-2025 Hepatitis C screening Hepatitis C Ga reening [facility] Comment on above: Postponed from 05/05 (Patient Refused) Start: 09-26-2025 History and physical examination, annual for health maintenance Wellness Visit [facility] Start: 09-26-2025 HIV screening HIV Screening [facility] Comment on above: Postponed from 05/05 (Patient Refused) Start: 06-18-2025 Tetanus vaccination [facility] Start: 05-12-2025 End: 05-12-2025 Patient encounter procedure 05/12/2025 8:20 AM EST Office Visit [facility] [address] [facility] [address] [place] [phone] Hanh Madrigal DO [address] [facility] [place] [address] [facility] Start: 05-07-2025 Yearly Adult Physical Yearly Adult [facility] Start: 04-28-2025 Influenza vaccination Influenz a Vaccine (Season Ended) [facility] Comment on above: Postponed from 03/03 (Patient Refused) Start: 12-16-2024 CBC W Auto Different ial panel - Blood [facility] Start: 12-16-2024 Comprehensive metabo lic 2000 panel - Serum or [facility] Start: 10-30-2024 Yearly Adult Physical Yearly Adult [facility] Start: 09-28-2024 Screening for malign ant neoplasm of [facility] Start: 09-02-2024 End: 09-02-2024 Patient encounter procedure 09/02/2024 2:45 PM EST Office Visit [facility] [address] [phone] Colt Pardo DO [address] [facility] [address] [id number] [facility] Start: 06-03-2024 End: 08-04-2024 Celiac Panel Celiac Panel Lab Routine Functional diarrhea Expected: 06/03/2024 (Approximate), Expires: 08/04/2024 [facility] Service Area Work Phone: Comment on above: Expected: 06/03/2024 (Approximate), Expires: 08/04/2024 Start: 05-06-2024 End: 05-06-2024 Patient encounter procedure 05/06/2024 8:40 AM EST Office Visit [facility] [address] [facility] [address] [place] [address] Hanh Madrigal L, DO [address] [facility] [place] [address] [facility] Start: 03-03-2024 COVID-19 Vaccine () COVID-19 Vaccine () [facility] Start: 03-03-2024 Influenza vaccination Influenza Vacc ine (#1) [facility] Start: 10-30-2023 End: 10-29-2024 Cobalamin (Vitamin B12) [Mass/volume] in Serum or Plasma Vitamin B12 Lab Routine Vitamin B 12 deficiency Expected: 10/30/2023 (Approximate), Expires: 10/29/2024 [facility] Work Phone: Comment on above: Expected: 10/30/2023 (Approximate), Expires: 10/29/2024 Start: 10-30-2023 End: 10-29-2024 Lipid 1996 panel - Serum or Plasma Lipid Panel Lab Routine Screening for lipid disorders Expected: 10/30/2023 (Approximate), Expires: 10/29/2024 [facility] Service Area Work Phone: Comment on above: Expected: 10/30/2023 (Approximate), Expires: 10/29/2024 Start: 09-15-2023 Screening for malign ant neoplasm of cervix [facility] Start: 05-01-2023 End: 05-01-2024 Cobalamin (Vitamin B12) [Mass/volume] in Serum or Plasma Vitamin B12 Lab Routine B12 deficiency Expected: 05/01/2023 (Approximate), Expires: 05/01/2024 [facility] Service Area Work Phone: Comment on above: Expected: 05/01/2023 (Approximate), Expires: 05/01/2024 Start: 03-03-2023 COVID-19 Vaccine () COVID-19 Vaccine () [facility] Start: 03-03-2023 Influenza vaccination INFLUENZA (#1) [facility] Start: 07-03-2022 DEPRESSION ASSESSMENT DEPRESSION ASS ESSMENT [facility] Start: 07-19-2021 FUV, Provider: Hanh Madrigal, Status: Pen, Time: 8:40 AM FUV, Provider: Hanh Madrigal, Status: Pen, Time: 8:40 AM [facility] Work Phone: Start: 04-19-2021 FUV, Provider: Hanh Madrigal, Status: Pen, Time: 8:20 AM FUV, Provider: Hanh Madrigal, Status: Pen, Time: 8:20 AM [facility] Work Phone: Start: 03-03-2020 Influenza vaccinatio n given Sequential Influenza Vaccine (#1) [facility] Start: 09-06-2019 End: 09-06-2019 Office Visit 09/06/2019 Office Visit General Surgery Kendell Egan MD [address] [place] [address] [address] [place] [address] [phone] [facility] Start: 03-03-2019 Influenza vaccination INFLUENZA VACC INE (#1) [facility] Start: 12-19-2017 DTaP/Tdap/Td Vaccine s (7 - Td or Tdap) DTaP/Tdap/Td Vaccines (7 - Td or Tdap) [facility] Start: 2016 PAP TESTING PAP TESTING [facility] Start: 2016 Screening for malign ant neoplasm of cervix [facility] Start: 2014 Third diphtheria, te tanus and acellular pertussis (DTaP) vaccination TDAP (ADULT) [facility] Start: 2014 Urine microalbumin profile DTA P,TDAP,TD (1 - Tdap) [facility] Start: 2013 Hepatitis C antibody , confirmatory test Hepatitis C Screening [facility] Start: 2013 HEPATITIS C SCREENING HEPATITIS C [facility] Start: 2013 Hepatitis C screening Hepatitis C [facility] Start: 2013 HIV SCREENING HIV SCREENING [facility] Start: 2013 Tetanus vaccination TETANUS [facility] Start: 2011 Screening for Chlamy deep trachomatis CHLAMYDIA SCREEN [facility] Start: 2010 HIV screening HIV Screening [facility] Start: 2010 Vaccination for eddi n papillomavirus HPV VACCINE ADOL (1 - Female 3-dose series) [facility] Start: 2008 HIV screening HIV SCREENING DISCUSSION [facility] Start: 2007 Adolescent depressio n screening assessment Depression Screening (PHQ9) [facility] Start: 2006 Vaccination for eddi n papillomavirus HPV VACCINES (1 - Female 2-dose series) [facility] Start: 1998 History and physical examination, annual for health maintenance Wellness Visit [facility] Start: 1995 COVID-19 VACCINE (#1) COVID-19 VACCI NE (#1) [facility] Start: 1995 GONORRHEA SCREEN GONORRHEA SCREEN [facility] Start: 1995 HEPATITIS B (1 of 3 - 3-dose series) HEPATITIS B (1 of 3 - 3-dose series) [facility] Start: 1995 HIV screening HIV Screening [facility] Start: 1995 Lipid [address]id Panel [facility] Start: 1995 Screening for Chlamy deep trachomatis Chlamydia Screening [facility] Start: 1995 Screening for malign ant neoplasm of cervix PAP SMEAR [facility] Start: 1995 Tetanus vaccination TETANUS EVERY 10 YR [facility] Start: 1995 Yearly Adult Physical Yearly Adult [facility] Alanine aminotransfe rase [Enzymatic activity/volume] in Serum or Plasma [facility] Albumin [Mass/volume ] in Serum or Plasma [facility] Alkaline phosphatase [Enzymatic activity/volume] in Serum or Plasma [facility] Anion gap in Serum o r Plasma [facility] End: 08-26-2019 Bacteria identified Aer cx Nom (Unsp spec) Urine Aerobic Culture Microbiology Routine Once for 1 Occurrences starting 08/26/2019 until 08/26/2019 [facility] Comment on above: Once for 1 Occurrenc es starting 08/26/2019 until 08/26/2019 Bacteria identified Aer cx Nom (Unsp spec) Urine Aerobic Culture Microbiology Routine 08/27/2019 12:08 AM EST [facility] Bilirubin, total measurement [facility] BUN/Creatinine ratio [facility] Calcium [Mass/volume ] in Serum or Plasma [facility] Carbon dioxide, tota l [Moles/volume] in Central venous blood [facility] CBC W Auto Different ial panel - Blood [facility] Chlamydia deoxyribon ucleic acid detection [facility] Creatinine [Mass/vol ume] in Serum or Plasma [facility] Erythrocyte mean corpuscular volume determination [facility] Glucose [Mass/volume ] in Serum or Plasma [facility] Hematocrit [Volume Fraction] of Blood [facility] Hemoglobin [Mass/vol ume] in Blood [facility] Hepatitis B surface antigen measurement [facility] Hepatitis C antibody measurement [facility] HIV 1+2 Ab+HIV1 p24 Ag [Presence] in Serum or Plasma by Immunoassay [facility] Leukocytes [#/volume ] in Blood [facility] Mean corpuscular hemoglobin concentration determination [facility] Mean corpuscular hemoglobin determination [facility] Measurement of renal function [facility] Neutrophil count [facility] Neutrophil percent differential count [facility] Platelets [#/volume] in Blood [facility] Potassium measurement [facility] Procedure on tissue specimen [facility] Comment on above: Release Upon Orderin g for 1 Occurrences starting 08/27/2019, 1 completed Protein/Creatinine [ Ratio] in Urine [facility] Red blood cell count [facility] Red cell distributio n width determination [facility] Rubella IgG measurement [facility] Serum chloride measurement [facility] Sodium measurement [facility] Total protein measurement [facility] Treponema sp Ab [Pre sence] in Serum [facility] Urea nitrogen [Mass/volume] in Serum or Plasma [facility] Immunizations Immunization Date Immunization Notes Care Provider Fa itz 10-06-2023 tetanus toxoid, redu alex diphtheria toxoid, and acellular pertussis vaccine, adsorbed Dr. Hanh Madrigal DO Work Phone: [facility] 04-12-2023 influenza virus vaccine, unspecified formulation Hanh Madrigal DO Work Phone: [facility] Work Phone: 05-25-2022 Influenza, injectabl e, Madin Radha Canine Kidney, preservative free, quadrivalent Hanh L Oberhauser Work Phone: [facility] Work Phone: 04-17-2019 Influenza virus vaccine [facility] 04-09-2019 influenza, injectabl e, quadrivalent, preservative free Hanh L Oberhauser Work Phone: [facility] Work Phone: 02-20-2018 influenza, injectabl e, quadrivalent, preservative free Hanh L Oberhauser Work Phone: [facility] Work Phone: 06-10-2015 diphtheria, tetanus toxoids and acellular pertussis vaccine [facility] 06-10-2015 Influenza virus vaccine [facility] 04-15-2013 influenza, live, intranasal, quadrivalent Hanh L Oberhauser Work Phone: [facility] Work Phone: 07-16-2012 influenza virus vaccine, live, attenuated, for intranasal use Hanh L Oberhauser Work Phone: [facility] Work Phone: 08-16-2010 influenza virus vaccine, live, attenuated, for intranasal use Hanh L Oberhauser Work Phone: [facility] Work Phone: 01-14-2010 varicella virus vaccine Екатерина n L Oberhauser Work Phone: [facility] Work Phone: 04-21-2009 novel [id number], preservative-free, injectable Hanh L Oberhauser Work Phone: [facility] Work Phone: 03-18-2009 influenza virus vaccine, whole virus Hanh Madrigal Work Phone: [facility] Work Phone: 06-24-2008 human papilloma viru s vaccine, quadrivalent Hanh Roweer Work Phone: [facility] Work Phone: 03-07-2008 human papilloma viru s vaccine, quadrivalent Hanh Roweer Work Phone: [facility] Work Phone: 12-20-2007 human papilloma viru s vaccine, quadrivalent Hanh Roweer Work Phone: [facility] Work Phone: 12-20-2007 meningococcal polysaccharide (groups A, C, Y and W-135) diphtheria toxoid conjugate vaccine (MCV4P) Hanh Madrigal Work Phone: [facility] Work Phone: 12-20-2007 tetanus toxoid, redu alex diphtheria toxoid, and acellular pertussis vaccine, adsorbed Hanh Madrigal Work Phone: [facility] Work Phone: 11-04-2000 diphtheria, tetanus toxoids and acellular pertussis vaccine, unspecified formulation Hanh Roweer Work Phone: [facility] Work Phone: 11-04-2000 measles, mumps and rubella virus vaccine Hanh Howarderhauser Work Phone: [facility] Work Phone: 11-05-1999 poliovirus vaccine, inactivated Hanh Madrigal Work Phone: [facility] Work Phone: 12-06-1996 diphtheria, tetanus toxoids and acellular pertussis vaccine, unspecified formulation Hanh Roweer Work Phone: [facility] Work Phone: 10-28-1996 hepatitis B vaccine, pediatric or pediatric/adolescent dosage Hanh Madrigal Work Phone: [facility] Work Phone: 10-28-1996 varicella virus vaccine Екатерина Roweer Work Phone: [facility] Work Phone: 07-10-1996 haemophilus influenz ae type b vaccine, PRP-T conjugate Hanh Madrigal Work Phone: [facility] Work Phone: 07-10-1996 measles, mumps and rubella virus vaccine Hanh Madrigal Work Phone: [facility] Work Phone: 1995 diphtheria, tetanus toxoids and acellular pertussis vaccine, unspecified formulation Hanh Madrigal Work Phone: [facility] Work Phone: 1995 haemophilus influenz ae type b vaccine, PRP-T conjugate Hanh Roweer Work Phone: [facility] Work Phone: 1995 trivalent poliovirus vaccine, live, oral Hanh Madrigal Work Phone: [facility] Work Phone: 1995 diphtheria, tetanus toxoids and acellular pertussis vaccine, unspecified formulation Hanh L Oberhauser Work Phone: [facility] Work Phone: 1995 haemophilus influenz ae type b vaccine, PRP-T conjugate Hanh L Oberhauser Work Phone: [facility] Work Phone: 1995 trivalent poliovirus vaccine, live, oral Hanh L Oberhauser Work Phone: [facility] Work Phone: 1995 diphtheria, tetanus toxoids and acellular pertussis vaccine, unspecified formulation Hanh L Oberhauser Work Phone: [facility] Work Phone: 1995 haemophilus influenz ae type b vaccine, PRP-T conjugate Hanh L Oberhauser Work Phone: [facility] Work Phone: 1995 hepatitis B vaccine, pediatric or pediatric/adolescent dosage Hanh L Oberhauser Work Phone: [facility] Work Phone: 1995 trivalent poliovirus vaccine, live, oral Hanh L Oberhauser Work Phone: [facility] Work Phone: 1995 hepatitis B vaccine, pediatric or pediatric/adolescent dosage Hnah L Oberhauser Work Phone: [facility] Work Phone: Payers Date Payer Category Payer [facility] NIC YOON UE/PREF/HMO/PPO Member Subscriber Plan / Payer (Effective 2024-Present) Name: Hanh Rm Relation to Subscriber: Spouse Name: MENDOZA RM Date of : 1998 Address: [address] [place] [address] Payer ID: [id number] (NAIC) Type: Not on file Address: [address] [place] [id number] 2024 Unknown [id number] 2023 Self-pay [id number] 2022 Medicaid [facility] MEDICAID UHC COMMUNITY PLAN MED[place] [id number] 2022-Present [phone] [address] [place] [address] Medicaid [id number] 2022 Medicaid (Managed Care) 1.2. [id number] 2022 Unknown [id number] 2020 Blue Cross Blue [employer]ie [employer] Managed Care [facility] [id number] 2020 Unknown ANTHEM ANTHEM BLUE/PREF/HMO/PPO [id number] 2020-Present [id number]. [id number] 2020 Unknown [id number] 2020 Unknown [id number] 2020 Unknown [id number] 2019 Medicaid [facility] MANAGED [facility] MEDICAID COMMUNITY PLAN [id number] 2019-Present [id number]. [id number] 2019 Medicaid [id number] 2019 Unknown [id number] 2017 Medicaid xxxxxxxxx [id number] 2017 Private Health Insurance 2017 Unknown 2017 Unknown [id number] [id number]. [id number] 1995 Unknown [id number] 2.16.840.1.409246.3.579.2. 1995 Unknown [id number] 2.16.840.1.209939.3.579.2 1995 Unknown [id number] 2.16840.1.087845.3.579.2 1995 Unknown [id number] 2.16.840.1.934321.3.579.2. 1995 Unknown [id number] 2.16.840.1.468039.3.579.2 1995 Unknown [id number] 2.16.840.1.286384.3.579.2. 1995 Unknown [id number] 2.16.840.1.999242.3.579.2. 717 1995 Unknown [id number] 2.16.840.1.819101.3.579.2. 1995 Unknown [id number] 2.16.840.1.825686.3.579.2. 1995 Unknown [id number] 2.16.840.1.110640.3.579.2. 1995 Unknown [id number] 2.16.840.1.722371.3.579.2. 71 1995 Unknown [id number] 2.16.840.1.154321.3.579.2. 1995 Unknown [id number] 2.16.840.1.283418.3.579.2. 1995 Unknown [id number] 2.16.840.1.932774.3.579.2. 1995 Unknown [id number] 2.16.840.1.329422.3.579.2. 903 1995 Unknown [id number] 2.16.840.1.731380.3.579.2. 903 1995 Unknown [id number] 2.16.840.1.706163.3.579.2. 903 1995 Unknown [id number] 2.16.840.1.084305.3.579.2. 356 1995 Unknown [id number] 2.16.840.1.388395.3.579.2. 356 1995 Unknown [id number] 2.16.840.1.305120.3.579.2. 356 1995 Unknown [id number] 2.16.840.1.557832.3.579.2. 479 1995 Unknown [id number] 2.16.840.1.844480.3.579.2. 479 1995 Unknown [id number] 2.16.840.1.301474.3.579.2. 479 1995 Unknown [id number] 2.16.840.1.574003.3.579.2. 479 1995 Unknown [id number] 2.16.840.1.177223.3.579.2. 479 1995 Unknown [id number] 2.16.840.1.709920.3.579.2. 47 1995 Unknown [id number] 2.16.840.1.015480.3.579.2. 479 1995 Unknown [id number] 2.16.840.1.661512.3.579.2. 902 1995 Unknown [id number] 2.16.840.1.713504.3.579.2. 124 1995 Unknown [id number] 2.16840.1.390436.3.579.2. 1244 1995 Unknown [id number] 2.16840.1.298900.3.579.2. 124 1995 Unknown [id number] 2.16840.1.496513.3.579.2. 1243 1995 Unknown [id number] 2.16840.1.476187.3.579.2. 1244 1995 Unknown [id number] 2.16840.1.218644.3.579.2. 124 1995 Unknown [id number] 2.16.840.1.684585.3.579.2. 1243 1995 Unknown [id number] 2.16.840.1.958699.3.579.2. 903 Unknown [id number] 2.16.840.1.250212.3.579.2. 462 Unknown [id number] 2.16.840.1.375217.3.579.2. 462 Unknown [id number] 2.16.840.1.809273.3.579.2. 462 Unknown [id number] 2.16.840.1.862195.3.579.2. 462 Unknown [id number] 2.16.840.1.400240.3.579.2. 462 Unknown [id number] 2.16.840.1.188823.3.579.2. 462 Unknown [id number] 2.16.840.1.734566.3.579.2. 462 Social History Date Type Detail Facility Start: 02-11-2019 End: 10-10-2024 Tobacco smoking status NHIS Never smoker [facility] Work Phone: Start: 02-11-2019 End: 09-26-2024 Alcohol intake No [facility] Start: 1995 Sex Assigned At Not on file [facility] Start: 08-27-2019 End: 03-03-2023 Alcohol intake Lifetime non-drinker (finding) [facility] Start: 08-26-2019 History SDOH Alcohol Frequency 1 [facility] Start: 08-28-2019 End: 09-26-2024 Alcohol intake Current drinker of alcohol (finding) [facility] Start: 08-27-2019 Alcohol Comment rarely [facility] Start: 08-26-2019 End: 09-06-2019 Tobacco use and exposure Never used [facility] Start: 10-20-2023 End: 05-06-2024 Exposure to SARS-CoV-2 (event) Not sure [facility] Start: 03-03-2023 End: 09-26-2024 No alcohol use No alcohol use [facility] Work Phone: Start: 07-07-2019 End: 10-18-2023 Tobacco smoking status OKIS Unknown if ever smoked [facility] Start: 07-07-2019 None [facility] Start: 1995 Sex Assigned At Female [facility] National Score (1-10 0), lower number is lower risk 72 [facility] Start: 05-01-2023 End: 09-02-2024 Alcohol intake Ex-drinker (finding) [facility] Work Phone: Start: 04-21-2023 End: 05-01-2023 Exposure to SARS-CoV-2 (event) Unable to assess [facility] Start: 08-27-2019 Gender identity Identifies as female gender (finding) [facility] Start: 08-27-2019 Sexual orientation Heterosexual (finding) [facility] Medical Equipment Procedure Code Equipment Code Equipment Origin al Text Equipment Identifier Dates [id number] Start: 01-24-2023 Clinical Notes 09-28-2021 to 12-16-2024 Note Date & Type Note Facility 12-16-2024 Progress note [facility] 10-25-2024 Evaluation note Diagnosis Onset Date Resolution Abnormal Pap smear of cervix acute October 25, 2024 12:46pm Ectopic acute October 022024 12:46pm History of herpes genitalis acute October 25, 2024 12:46pm Low vitamin B12 level acute Oct 12:46pm Preeclampsia, severe acute Apri l 2024 12:46pm acute October 25 12:46pm Retained placenta or membranes acute October 25, 2024 12:46pm Supervision of high-risk acute October 25, 2024 12:46pm [facility] Work Phone: 1(704) 196-365804-25-2025 Evaluation note* Diagnosis Onset Date Resolution Status Admit Date Abnormal Pap smear of cervix acute October 25, 2024 12:46pm Ectopic acute October 022024 12:46pm History of herpes genitalis acute October 25, 2024 12:46pm Low vitamin B12 level acute Oct 12:46pm Preeclampsia, severe acute Apri l 2024 12:46pm acute October 25 12:46pm Retained placenta or membranes acute October 25, 2024 12:46pm Supervision of high-risk acute October 25, 2024 12:46pm Abnormal Pap smear of cervix acute November 22, 2024 1:30pm Ectopic acute October 1:30pm Elevated liver enzymes acute Ma y 2024 1:30pm History of herpes genitalis acute November 22, 2024 1:30pm Low vitamin B12 level acute November 22, 2024 1:30pm Preeclampsia, severe acute November 22, 2024 1:30pm acute November 22, 2024 1:30pm Retained placenta or membranes acute November 22, 2024 1:30pm Supervision of high-risk acute November 22, 2024 1 :30pm [facility] Work Phone: 1(767) 979-121904-25-2025 Evaluation note* Diagnosis Onset Date Resolution Status Admit Date Abnormal Pap smear of cervix acute October 25, 2024 12:46pm Ectopic acute October 022024 12:46pm History of herpes genitalis acute October 25, 2024 12:46pm Low vitamin B12 level acute Apr il 2024 12:46pm Preeclampsia, severe acute Apri l 2024 12:46pm acute October 25 12:46pm Retained placenta or membranes acute October 25, 2024 12:46pm Supervision of high-risk acute October 25, 2024 12:46pm Abnormal Pap smear of cervix acute November 22, 2024 1:30pm Ectopic acute October 1:30pm Elevated liver enzymes acute Ma y 2024 1:30pm History of herpes genitalis acute November 22, 2024 1:30pm Low vitamin B12 level acute November 22, 2024 1:30pm Preeclampsia, severe acute November 22, 2024 1:30pm acute November 22, 2024 1:30pm Retained placenta or membranes acute November 22, 2024 1:30pm Supervision of high-risk acute November 22, 2024 1 :30pm Abnormal Pap smear of cervix acute December 16, 2024 1:21pm Ectopic acute December 162024 1:21pm Elevated liver enzymes acute Ju ne 2024 1:21pm History of herpes genitalis acute December 16, 2024 1:21pm Low vitamin B12 level acute Galen e 2024 1:21pm Preeclampsia, severe acute December 16, 2024 1:21pm acute December 16 1:21pm Retained placenta or membranes acute December 16, 2024 1:21pm Supervision of high-risk acute December 16, 2024 1:21pm [facility] Work Phone: [phone] Telephone encounter Note* Telephone Encounter - Audi Butcher, ANAIS - 10/07/2024 12:10 PM EDT Prescription approved. Sent to pharmacy on file. Pharmacy to notify patient when refill is available. [id number] Miscellaneous Notes* Telephone Encounter - Audi Butcher CNP - 10/07/2024 12:10 PM EDT Prescription approved. Sent to pharmacy on file. Pharmacy to notify patient when refill is available. * Telephone Encounter - Anuja Dumont LPN - 10/07/2024 10:23 AM EDT Rxs for B12 pending to pharmacy. * Telephone Encounter - Anuja Dumont LPN - 10/07/2024 10:21 AM EDT ----- Message from Malinda Dowd sent at 10/07/2024 10:11 AM EDT ----- Regarding: B12 injections Contact: Hanh, Self Caller: Julieth: SIENNA Kim is calling to agree to the B12 shots and get them sent to the pharmacyCallback# [phone] documented in this [id number] Telephone encounter Note* Telephone Encounter - Anuja Dumont LPN - 10/07/2024 10:23 AM EDT Rxs for B12 pending to pharmacy. [id number] Telephone encounter Note* Telephone Encounter - Anuja Dumont LPN - 10/07/2024 10:21 AM EDT ----- Message from Malinda Dowd sent at 10/07/2024 10:11 AM EDT ----- Regarding: B12 injections Contact: Hanh, Self Caller: VirginiaCP: SIENNA Kim is calling to agree to the B12 shots and get them sent to the pharmacyCallback# [phone] [id number] NoteOffice Progress Notes Patient Name: Hanh Rm Date : 09/26/2024 MR #: [id number] : 1995 Summary and Plan Problem List Items Addressed This Visit None Visit Diagnoses B12 deficiency - Primary Relevant Orders Intrinsic Factor Blocking Antibody Vitamin B12 Wellness examination Relevant Orders Lipid Panel Comprehensive Metabolic Panel CBC and Differential TSH with Reflex Free T4 Lipids abnormal Relevant Orders Lipid Panel HPI Hanh is a 29 year old patient here today to establish care. History includes B12 deficiency, history of anxiety however this resolved with removal of IUD. History of cholecystectomy - She is using Questran currently. She states she is approximately 5 weeks - She follows with [facility]. She is G-5 P-3; history of ectopic in 2020. She has an appointment in October for [employer]WORK [employer]; she is on vitamin. History of pre-eclampsia with last 2 pregnancies. Care gaps discussed in detail including but not limited to vaccinations and screenings. Review of Systems : Review of Systems Constitutional: Negative for appetite change, chills, diaphoresis, fatigue, fever and unexpected weight change. HENT: Negative for congestion, sinus pressure and sinus pain. Eyes: Negative for visual disturbance. Respiratory: Negative for apnea, cough, choking, chest tightness, shortness of breath, wheezing and stridor. Cardiovascular: Negative for chest pain, palpitations and leg swelling. Gastrointestinal: Negative for abdominal pain, constipation, diarrhea, nausea and vomiting. Endocrine: Negative for polydipsia, polyphagia and polyuria. Genitourinary: Negative for difficulty urinating, frequency, hematuria and urgency. Musculoskeletal: Negative for arthralgias, gait problem, joint swelling and neck stiffness. Skin: Negative for rash. Neurological: Negative for dizziness, seizures, syncope, facial asymmetry, weakness, light-headedness, numbness and headaches. Psychiatric/Behavioral: The patient is not nervous/anxious. Past Medical, Surgical, Family, and Social History: Past Medical History: Diagnosis Date Anemia Takes oral iron supplements Anxiety Calculus of gallbladder with acute cholecystitis 08/2019 required cholecystectomy Mastitis 09/2019 Preeclampsia Past Surgical History: Procedure Laterality Date CHOLECYSTECTOMY LAPAROSCOPIC N/A 08/27/2019 acute cholecystitis due to gallstones......Dr. Kendell Egan D & C WITH [facility] 07/2019 for placental issues post delivery LABOR WISDOM TOOTH EXTRACTION Family History Problem Relation Age of Onset Other (HTN) Mother Cancer Father Other (SCCA head and neck) Father Breast cancer Maternal Grandmother Lung cancer Maternal Grandfather Other (HTN) Maternal Grandfather Other (DM) Maternal Grandfather Other (Hairy cell leukemia) Paternal Grandmother Social History [1] Allergies and Medications: I have reviewed the patient's allergies. Lactose, Macrobid [nitrofurantoin monohyd/m-cryst], Nickel, and Sulfa (sulfonamide antibiotics) Medications: Patient's Medications New Prescriptions No medications on file Previous Medications CHOLESTYRAMINE (QUESTRAN) 4 GRAM POWDER Take 0.5 (one-half) Scoopful (2 g total) by mouth 2 (two) times a day . Modified Medications No medications on file Discontinued Medications FAMOTIDINE (PEPCID) 40 MG TABLET Take 1 (one) tablet (40 mg total) by mouth daily for 5 days . LEVONORGESTREL (MIRENA) 20 MCG/24 HOURS (6 YRS) 52 MG IUD 1 each by Intrauterine route once . ONDANSETRON (ZOFRAN-ODT) 4 MG DISINTEGRATING TABLET Dissolve 1 (one) tablet (4 mg total) on top of tongue every 8 (eight) hours as needed for nausea . PROCHLORPERAZINE (COMPAZINE) 5 MG TABLET Take 1 (one) tablet (5 mg total) by mouth every 6 (six) hours as needed for nausea . SERTRALINE (ZOLOFT) 100 MG TABLET Take 1 (one) tablet (100 mg total) by mouth daily . OARRS/NARxCHECK Report Received and Assessed: Date controlled substance agreement signed: No data found Date of last drug screen: The ASCVD Risk score (Nydia ECKERT, et al., 2019) failed to calculate for the following reasons: The 2019 ASCVD risk score is only valid for ages 40 to 79 Physical Exam: Vital Signs: BP 119/81 (BP Location: Left arm, Patient Position: Sitting, BP Cuff Size: Adult) Pulse 69 Temp 98 degrees F (36.7 degrees C) (Temporal) Resp 18 Ht 5' 3 Wt 70.3 kg (155 lb) SpO2 98% BMI 27.46 kg/m Physical Exam Vitals and nursing note reviewed. Constitutional: General: She is not in acute distress. Appearance: Normal appearance. She is normal weight. She is not ill-appearing, toxic-appearing or diaphoretic. HENT: Head: Normocephalic and atraumatic. Right Ear: Tympanic membrane and external ear normal. Left Ear: Tympanic membrane and external ear normal. Nose: Nose normal. Mouth/Throat: Mouth: Mucous membranes (more content not included)...[facility] 09-02-2024 History of Present illness Narrative* Colt Morris Edvin, DO - 09/02/2024 2:45 PM EST Subjective Patient ID: Hanh Rm is a 29 y.o. female who presents for Follow-up (Patient started taking cholestyramine and states it made her symptoms a lot better. ). ARMANDO Main is seen today in follow-up for bile salt induced diarrhea is doing well with cholestyramine 1/2 packet twice daily states she has had a transformation and an awakening in herself that she isable to drink coffee and eat out and having no diarrhea. She denies any constipation or GI related issues Review of Systems Constitutional: Negative. HENT: Negative. Eyes: Negative. Respiratory: Negative. Cardiovascular: Negative. Endocrine: Negative. Genitourinary: Negative. Neurological: Negative. Hematological: Negative. Objective Physical Exam Vitals and nursing note reviewed. Constitutional: Appearance: Normal appearance. HENT: Head: Normocephalic. Mouth/Throat: Mouth: Mucous membranes are moist. Pharynx: Oropharynx is clear. Eyes: Conjunctiva/sclera: Conjunctivae normal. Pupils: Pupils are equal, round, and reactive to light. Cardiovascular: Rate and Rhythm: Normal rate and regular rhythm. Pulses: Normal pulses. Heart sounds: Normal heart sounds. Pulmonary: Effort: Pulmonary effort is normal. Breath sounds: Normal breath sounds. Abdominal: General: Abdomen is flat. Bowel sounds are normal. Palpations: Abdomen is soft. Musculoskeletal: Cervical back: Normal range of motion and neck supple. Skin: General: Skin is warm and dry. Neurological: General: No focal deficit present. Mental Status: She is alert and oriented to person, place, and time. Psychiatric: Behavior: Behavior normal. Assessment/Plan Colt Pardo DO 09/02/24 2:48 PM documented in this [facility] Work Phone: 1(702) 284-431512-02-2024 History of Present illness Narrative* Colt Pardo DO - 06/03/2024 3:15 PM EST Subjective Patient ID: Hanh RM is a 29 y.o. female who presents for New Patient Visit (Chronic diarrhea every day 2-3x a day and after she eats. Abd pain/cramping after eating./Breast feeding. ). HPI Hanh is a pleasant 29-year-old female with 10-year history of diarrhea. Averaging 6-8 bowel movements daily. History of B12 and B6 deficiency does take oral and subcu injections. Patient best to diarrhea worsening after cholecystectomy. Surprisingly got better during her last and actually had normal stools while . After she has delivered she now has recurrence of her diarrhea. States it is difficult to go out to eat with her and she cannot leave the restaurant without using the bathroom. Did do a home allergy panel which did show she is allergic to onion, garlic, egg yolk, milk and soy. Review of Systems Constitutional: Negative. HENT: Negative. Eyes: Negative. Respiratory: Negative. Cardiovascular: Negative. Gastrointestinal: Positive for diarrhea. Endocrine: Negative. Genitourinary: Negative. Neurological: Negative. Hematological: Negative. Objective Physical Exam Vitals and nursing note reviewed. Constitutional: Appearance: Normal appearance. HENT: Head: Normocephalic. Mouth/Throat: Mouth: Mucous membranes are moist. Pharynx: Oropharynx is clear. Eyes: Conjunctiva/sclera: Conjunctivae normal. Pupils: Pupils are equal, round, and reactive to light. Cardiovascular: Rate and Rhythm: Normal rate and regular rhythm. Heart sounds: Normal heart sounds. Pulmonary: Effort: Pulmonary effort is normal. Breath sounds: Normal breath sounds. Abdominal: General: Abdomen is flat. Bowel sounds are normal. Palpations: Abdomen is soft. Musculoskeletal: General: Normal range of motion. Cervical back: Normal range of motion and neck supple. Skin: General: Skin is warm and dry. Neurological: General: No focal deficit present. Mental Status: She is alert and oriented to person, place, and time. Psychiatric: Behavior: Behavior normal. Assessment/Plan Diagnoses and all orders for this visit: Bile salt-induced diarrhea ([facility]) - cholestyramine (Questran) 4 gram powder; Take 0.5 packets (2 g) by mouth 2 times daily (morning and late afternoon). Dissolve in 8 oz of liquid and drink before a meal Functional diarrhea - Celiac Panel; Future Commend she go on FODMAP diet for 8 weeks. Will treat bile salt diarrhea with cholestyramine. Follow-up 2 months after FODMAP diet is initiated. Colt Pardo DO 06/03/24 3:35 PM documented in this [facility] Work Phone: 1(806) 831-395311-04-2024 History of Present illness Narrative* Hanh David DO Rohan - 05/06/2024 8:40 AM EST Subjective Patient ID: Hanh RM is a 29 y.o. female who presents for Follow-up (6 month). HPI Patient is here today for 6 mo follow up Pt had a baby girl 5 mo ago, was delivered at 36 weeks, had retained placenta that took some time to remove, she was induced at 36 weeks due to pre-eclampsia. Review of Systems Constitutional: Negative for activity change, appetite change, chills and fatigue. HENT: Negative for congestion, postnasal drip, sinus pressure, sinus pain and sore throat. Respiratory: Negative for cough, shortness of breath and wheezing. Cardiovascular: Negative for chest pain and leg swelling. Gastrointestinal: Negative for abdominal distention, diarrhea, nausea and vomiting. Musculoskeletal: Negative for back pain. Neurological: Negative for weakness and numbness. Objective BP 105/70 Pulse 85 Ht 1.6 m (5' 3) Wt 71.2 kg (157 lb) BMI 27.81 kg/m Physical Exam Constitutional: General: She is not in acute distress. Appearance: Normal appearance. HENT: Head: Normocephalic. Right Ear: Tympanic membrane, ear canal and external ear normal. Left Ear: Tympanic membrane, ear canal and external ear normal. Nose: Nose normal. Mouth/Throat: Pharynx: No oropharyngeal exudate. Eyes: General: Right eye: No discharge. Left eye: No discharge. Extraocular Movements: Extraocular movements intact. Pupils: Pupils are equal, round, and reactive to light. Cardiovascular: Rate and Rhythm: Normal rate and regular rhythm. Heart sounds: No murmur heard. No gallop. Pulmonary: Effort: Pulmonary effort is normal. No respiratory distress. Breath sounds: Normal breath sounds. No wheezing. Abdominal: General: Bowel sounds are normal. There is no distension. Palpations: Abdomen is soft. Tenderness: There is no abdominal tenderness. Musculoskeletal: General: No swelling. Normal range of motion. Cervical back: Neck supple. No tenderness. Skin: General: Skin is warm and dry. Coloration: Skin is not jaundiced. Neurological: General: No focal deficit present. Mental Status: She is alert and oriented to person, place, and time. Cranial Nerves: No cranial nerve deficit. Psychiatric: Mood and Affect: Mood normal. Behavior: Behavior normal. Assessment/Plan Problem List Items Addressed This Visit B12 deficiency - Primary Wellness examination Immunizations Flu shot 2022, recommended COVID declines PNA -- Shingles -- RSV -- Tdap 2023 Pap 2021, 2023 Mammo -- DeXA -- Colonoscopy -- Had pre-eclampsia and delivered at 36 weeks, blood pressure wnl now B12 def - corrected ,continue b12 replacement 3. Lipid improved, last was drawn while she was which was why it was significantly elevated Final diagnoses: [E53.8] B12 deficiency [Z00.00] Wellness examination documented in this [facility] Work Phone: 1(801) 523-677804-29-2024 History of Present illness Narrative* Hanh Madrigal DO - 10/30/2023 8:20 AM EDT Subjective Patient ID: Hanh Dolan is a 28 y.o. female who presents for Annual Exam (+ DUE 12/12/2023/Wellness exam for insurance/Labs need ordered /Would like to get back on B12 injections ). HPI Patient is here today for wellness visit., She is 6 weeks from her due date with . No complications so far. B12 is low, needs to restart b12 injections. Review of Systems Constitutional: Negative for activity change, appetite change, chills and fatigue. HENT: Negative for congestion, postnasal drip, sinus pressure, sinus pain and sore throat. Respiratory: Negative for cough, shortness of breath and wheezing. Cardiovascular: Negative for chest pain and leg swelling. Gastrointestinal: Negative for abdominal distention, diarrhea, nausea and vomiting. Musculoskeletal: Negative for back pain. Neurological: Negative for weakness and numbness. Objective BP 115/75 Pulse 94 Ht 1.6 m (5' 3) Wt 82.1 kg (181 lb) BMI 32.06 kg/m Physical Exam Constitutional: General: She is not in acute distress. Appearance: Normal appearance. HENT: Head: Normocephalic. Nose: Nose normal. Mouth/Throat: Mouth: Mucous membranes are dry. Pharynx: No oropharyngeal exudate. Eyes: General: Right eye: No discharge. Left eye: No discharge. Extraocular Movements: Extraocular movements intact. Pupils: Pupils are equal, round, and reactive to light. Cardiovascular: Rate and Rhythm: Normal rate and regular rhythm. Heart sounds: No murmur heard. No gallop. Pulmonary: Effort: Pulmonary effort is normal. No respiratory distress. Breath sounds: Normal breath sounds. No wheezing. Abdominal: Comments: gravid Musculoskeletal: General: No swelling. Normal range of motion. Skin: General: Skin is warm and dry. Coloration: Skin is not jaundiced. Neurological: General: No focal deficit present. Mental Status: She is alert and oriented to person, place, and time. Cranial Nerves: No cranial nerve deficit. Psychiatric: Mood and Affect: Mood normal. Behavior: Behavior normal. Assessment/Plan Problem List Items Addressed This Visit Anxiety - Primary Wellness examination Other Visit Diagnoses Screening for lipid disorders Relevant Orders Lipid Panel Vitamin B 12 deficiency Relevant Orders Vitamin B12 Immunizations Flu shot 2022 COVID declines PNA -- Shingles -- RSV -- Tdap 2023 Pap 2021 Mammo -- DeXA -- Colonoscopy -- Reviewed pts labwork, chol significantly elevated from last but likely due to , can repeatin 6 mo B12 def - restart b12 injections Final diagnoses: [F41.9] Anxiety [Z00.00] Wellness examination [Z13.220] Screening for lipid disorders [E53.8] Vitamin B 12 [facility]: 1(669) 474-253310-30-2023 History of Present illness Narrative* Hanh Madrigal DO - 05/01/2023 3:20 PM EDT Subjective Patient ID: Hanh Dolan is a 27 y.o. female who presents for No chief complaint on file.. HPI Patient is here today for 3 mo follow up on b12 def. Visit was conducted via telephone,pt and provider were at two separate locations. Pt was consented fir the encounter. Pt did 3 mo of injections. Noticed considerable improvementwith supplementation. Is 8 weeks , weaned off wellbutrin. Doing ok without. Review of Systems Constitutional: Negative for fatigue. Objective There were no vitals taken for this visit. Physical Exam No physical exam was conducted due to telephone visit. Assessment/Plan Problem List Items Addressed This Visit None Visit Diagnoses B12 deficiency - Primary Relevant Orders Vitamin B12 B12 def - finished 3 mo injections, will repeat labs Continue supplementation 2. Weaned off wellbutrin since and doing ok Final diagnoses: [E53.8] B12 deficiency [facility] Phone: 1(263) 400-532709-01-2023 NoteHNO ID: [id number] Author: Bruna Andrade APRN.TELEVISION ANTENNA INSTALLER Service: ? 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 Hanh Dolan is a 27 year old female who presents To establish care. HPI: Patient presents today to establish care due to [facility] [employer] closing. She has an appointment with them to have her IUD removed on March 17 and wants to attempt . 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 LMP: Age at Menarche: Age at First : Age at Menopause: 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 Comments: Sexual Activity: No sexual activity data on record; No partner data on record Contraception: No contraception data on record PAST MEDICAL HISTORY Diagnosis Date Ectopic Generalized anxiety disorder PAST SURGICAL HISTORY Procedure Laterality Date EXTRACTION ERUPTED TOOTH/EXR REMOVAL GALLBLADDER FAMILY HISTORY Problem Relation Age of Onset other (squamaous Cell Carcinoma, Neck) Father Seizures Brother Social History Tobacco Use Smoking status: Never Smokeless tobacco: Never Current Outpatient Medications Medication Sig cyanocobalamin 1,000 mcg/mL once every month. buPROPion XL (WELLBUTRIN XL) 300 mg 24 hr tablet Take 300 mg by mouth once daily. INTRAUTERINE DEVICE, IUD, INTRAUTERINE by INTRAUTERINE route. No current facility-administered medications for this visit. Allergies As of Date: 03/03/2023 Allergen Noted Reaction MACROBID [NITROFURANTOIN MONOHYD/*04/28/2021 Hives SULFA (SULFONAMIDE ANTIBIOTICS) 12/11/2017 Rash Fully Assessed 03/03/2023 REVIEW OF SYSTEMS Expanded ROS: N/A Allergies and current medication updated:Yes EXAM: There were no vitals taken for this visit. GENERAL: pleasant, female in no apparent distress HEENT: Normocephalic, atraumatic, mucus membranes moist, and no lesions CHEST: Normal inspiratory effort ASSESSMENT/PLAN: 1. Encounter to establish care - ICD9: V65.8, ICD10: Z76.89 Recommended to patient to start vitamin with 1 mg of folic acid She is to call office with a positive test or any further questions. Bruna Andrade APRN.CNP Medical Decision Making: Problems: Low: Acute, uncomplicated illness or injury Risk: Minimal: Minimal risk from testing/treatment Medical [facility] History of Present illness Narrative* Bruna Andrade APRN.CNP - 03/03/2023 1:30 PM EDT Film Editor Supervisor offered: Patient declines. Hanh Dolan is a 27 year old female who presents To establish care. HPI: Patient presents today to establish care due to [facility] [employer] closing. She has an appointmentwith them to have her IUD removed on March 17 and wants to attempt . 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 LMP: Age at Menarche: Age at First : Age at Menopause: 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 Comments: Sexual Activity: No sexual activity data on record; No partner data on record Contraception: No contraception data on record PAST MEDICAL HISTORY Diagnosis Date Ectopic Generalized anxiety disorder PAST SURGICAL HISTORY Procedure Laterality Date EXTRACTION ERUPTED TOOTH/EXR REMOVAL GALLBLADDER FAMILY HISTORY Problem Relation Age of Onset other (squamaous Cell Carcinoma, Neck) Father Seizures Brother Social History Tobacco Use Smoking status: Never Smokeless tobacco: Never Current Outpatient Medications Medication Sig cyanocobalamin 1,000 mcg/mL once every month. buPROPion XL (WELLBUTRIN XL) 300 mg 24 hr tablet Take 300 mg by mouth once daily. INTRAUTERINE DEVICE, IUD, INTRAUTERINE by INTRAUTERINE route. No current facility-administered medications for this visit. Allergies As of Date: 03/03/2023 Allergen Noted Reaction MACROBID [NITROFURANTOIN MONOHYD/*04/28/2021 Hives SULFA (SULFONAMIDE ANTIBIOTICS) 12/11/2017 Rash Fully Assessed 03/03/2023 REVIEW OF SYSTEMS Expanded ROS: N/A Allergies and current medication updated:Yes EXAM: There were no vitals taken for this visit. GENERAL: pleasant, female in no apparent distress HEENT: Normocephalic, atraumatic, mucus membranes moist, and no lesions CHEST: Normal inspiratory effort ASSESSMENT/PLAN: 1. Encounter to establish care - ICD9: V65.8, ICD10: Z76.89 Recommended to patient to start vitamin with 1 mg of folic acid She is to call office with a positive test or any further questions. Bruna Andrade APRN.CNP Medical Decision Making: Problems: Low: Acute, uncomplicated illness or injury Risk: Minimal: Minimal risk from testing/treatment Medical Decision Making Level: 2 - Straightforward documented in this encounter[facility]-2022 NotePap Smear Specimen AdequacyMarch 2021 4:00pmCommentSatisfactory for evaluation. Endocervical and/or squamous metaplasticcells (endocervical component)are present.[facility] A#[id number] Work Phone: Comment on above:Satisfactory for evaluation. Endocervical and/or squamous metaplasticcells (endocervical component)are present.09-28-2021 NotePap Smear QC ReviewMarch 2021 4:00pmCommentNuvia Allen, Supervisory Cell Manager (ASCP)[facility][id number] Work Phone: Comment on above:Nuvia Allen, Supervisory Cell Manager (ASCP)Evaluation noteNo assessment information availableWMarion Hospital Work Phone: Evaluation note* Diagnosis Encounter to establish care- Primary Other reasons for seeking consultation [facility] Diagnosis B12 deficiency- Primary documented in this encounter [facility] Work Phone: Evaluation note* Diagnosis Onset Date Resolution Status History of abnormal cervical Pap smear acute History of pre-eclampsia in prior , currently acute acute Supervision of high risk in first trimester [facility] Work Phone: Evaluation note* Diagnosis Onset Date Resolution Status History of abnormal cervical Pap smear acute History of pre-eclampsia in prior , currently acute acute Supervision of high risk in first trimester acute History of pre-eclampsia in prior , currently acute acute Supervision of high risk in first trimester [facility] Work Phone: Evaluation note* Diagnosis Onset Date Resolution Status History of pre-eclampsia in prior , currently acute acute Supervision of high risk in first trimester acute History of abnormal cervical Pap smear acute History of pre-eclampsia in prior , currently acute acute Supervision of high risk in first trimester acute History of pre-eclampsia in prior , currently acute acute Supervision of high risk in first trimester acute History of abnormal cervical Pap smear acute History of pre-eclampsia in prior , currently acute acute Supervision of high risk in first trimester [facility] Work Phone: Evaluation note* Diagnosis Anxiety- Primary Anxiety state, unspecified Wellness examination Screening for lipid disorders Vitamin B 12 deficiency Other B-complex deficiencies documented in this encounter [facility] Work Phone: Evaluation note* Diagnosis Onset Date Resolution Status History of abnormal cervical Pap smear acute History of pre-eclampsia in prior , currently acute acute Supervision of high risk in first trimester acute History of pre-eclampsia in prior , currently acute acute Supervision of high risk in first trimester acute History of abnormal cervical Pap smear acute History of pre-eclampsia in prior , currently acute acute Supervision of high risk in first trimester acute COVID-19 affecting in third trimester acute History of pre-eclampsia in prior , currently acute acute Supervision of high risk in first trimester acute COVID-19 affecting in third trimester acute History of abnormal cervical Pap smear acute History of pre-eclampsia in prior , currently acute acute Supervision of high risk in first trimester acute COVID-19 affecting in third trimester acute History of pre-eclampsia in prior , currently acute Large for dates affecting management of mother acute acute Supervision of high risk in first trimester [facility] Work Phone: Evaluation note* Diagnosis B12 deficiency- Primary Wellness examination documented in this encounter [facility] Work Phone: Evaluation note* Diagnosis Bile salt-induced diarrhea (HHS-HCC)- Primary Functional diarrhea documented in this encounter [facility] Work Phone: Evaluation note* Diagnosis Bile salt-induced diarrhea (HHS-HCC)- Primary documented in this encounter [facility] Work Phone: Evaluation note* Diagnosis Acute cholecystitis- Primary Acute cholecystitis Post-op pain Other acute postoperative pain Calculus of gallbladder with acute cholecystitis and obstruction B12 deficiency- Primary [facility] Patient is here today for 6 mo follow up * Patient has a work form that needs filled out. * She had labs done at [facility]. * She reports that she has otherwise been doing well. * Results were not faxed and they have no record of her bloodwork results in her chart though they did draw her blood. * She reports THat she has not side effects from the Wellbutrin. * She has what I suspect is a lipoma in her left medial anterior thigh, she states that sometimes it is tender and feels like that part of her leg is numb, she denies any back pain or sciatica symptoms. [facility] Work Phone: History of Present illness Narrative* Patient is here today for work physical. * Pt reports that she as been doing ok. [facility] Work Phone: Progress note Author Mercy Avendano [facility] Note Date/Time December 16, 2024 1:44 pm [facility]'[address], [address] [place] [address] OFFICE VISIT Date of Service: 12/16/24 MR#: [id number] Acct: [id number] Name: HANH RM Rep #: [id number] : 1995 Provider: JONN Avendano Age/Sex: 29/F Location[place] [facility] [place] Status: Signed Intake Vital Signs 10/25/24 13:03 11/22/24 13:34 12/16/24 13:25 Height 5 ft 3 in 5 ft 3 in 5 ft 3 in Weight: 157 lb BMI 27.8 BP 119/80 Intake Visit Reasons: 17wk ob Chief Complaint: 17wk ob 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: No Is patient in pain?: No Allergies nitrofurantoin (From Macrobid) Allergy (Unknown, Verified 12/16/24 13:23) Hives nickel Allergy (Verified 12/16/24 13:23) Rash Sulfa (Sulfonamide Antibiotics) Allergy (Verified 12/16/24 13:23) Hives Medications ?Medication ?Instructions ?Recorded ?Confirmed ?Type docosahexaenoic acid 200 mg 200 mg PO DAILY 10/30/23 0 12/16/24 History capsule ( DHA) aspirin 81 mg tablet,delayed 81 mg PO QDAY 10/10/24 History release cholestyramine (with sugar) 4 gram ea PO 10/10/2412/01 History oral powder mecobalamin (vitamin B12) 10,000 mcg IM 10/10/2412/16 History mcg solution for injection ondansetron 4 mg disintegrating 4 mg PO Q6H PRN nausea and 10/10/24 12/16/24 Rx tablet vomiting #90 tabs Last Menstrual Period: 08/21/24 : No PFSH PFSH Medical History Preeclampsia, severe Large for dates affecting management of mother (spontaneous vaginal delivery) Retained placenta Abnormal Pap smear of cervix History of pre-term labor Retained placenta or membranes Headache Ectopic Pre-eclampsia Herpes genitalis Migraines Anemia affecting Anxiety Surgical History [place] teeth removed Hx of cholecystectomy Family History Father Squamous cell carcinoma Mother Hyperlipidemia Brother Seizures Grandmother Breast cancer Social History adopted: No household members: family and children housing: house number of children: 3 current occupational status: unemployed current occupation: [employer] pets and animals: Yes pets and animals: dog(s) history of recent travel: No Smoking Status: Never smoker alcohol intake: never substance use type: does not use caffeine: Yes what type of physical activity do you participate in: none sandra/synagogue: Buddhist seatbelt use: always do you feel safe at home: Yes 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 Date Name GA/Weeks Outcome Route Bth Weight Gen Labor Lgth Anesthesia Del Locatn Provider FOB 07/24/15 Anu 39 live - full term 6lbs 9oz Female epidural [facility] Dr. Edna Brambila 07/08/19 Landon 37 live - full term 8lbs 6oz Male [facility] Dr. Edna Machuca 11/17/23 Kimmie 36 live - 6lbs 15oz Female [facility] Xiomara Pascual [place]galde Delivery Date: 07/24/15 Last Updated by: Lissa Ngo No issues during or delivery Delivery Date: 07/08/19 Last Updated by: Lissa Ngo Went into pre-term labor at 36 weeks but was able to stop labor. Developedpre-eclampsia and was induced at 37 weeks. Retained placenta, curettage immediately after delivery Delivery Date: 11/17/23 Last Updated by: Lissa David Ngo COVID, LGA, severe pre-e HPI 17wk ob Details: HANH RM is a 29 year old who presents for routine OB visit. OB Visit ANNA Calculator Estimated Delivery Date Method Current WG Current Estimate 05/28/25 LMP (Certain) 16w 5d Expected Delivery Route/Plan Labor Preferences- CB/BF classes: [] labor support person: [] labor intervention preferences: [] pain management options preferred: [] cut cord/dad catch: [] : [] PP control planned: [] discussed possible routes of delivery and associated risks: [] special requests: [] Specific Issue/Plans Covid status: [] Flu vaccine: [] Tdap vaccine: [] Rhogam: [] LARC form signed: [] Problem list reviewed and updated with the most current plan of care details and appropriate orders placed. Relevant counseling for the gestational age provided. Continue routine care and follow up unless otherwise noted in visit notes/problem list details Initial Weight: 152 lb Date -?-?-?-?-?-?-?-?-?-?-?-?- EGA Weight BP Urine Prot -?-?-?-?-?-?-?-?-?-?-?-?- Glucose FHR FuHt Pres Dilation -?-?-?-?-?-?-?-?-?-?-?-?- Effaced St Visit Note 10/25/24 -?-?-?-?-?-?-?-?-?-?-?-?- 9w 2d 152 lb 6 oz (+6 oz) 119/76 -?-?-?-?-?-?-?-?-?-?-?-?- 182 -?-?-?-?-?-?-?-?-?-?-?-?- KW- CRL cons wit h dates. Accepts NIPT on asa 81mg for hx pre e 11/22/24 -?-?-?-?-?-?-?-?-?-?-?-?- 13w 2d 152 lb 6 oz (+6 oz) 119/79 Negative -?-?-?-?-?-?-?-?-?-?-?-?- Negative 170 -?-?-?-?--?-?-?-?-?-?-?-?- JV- CRL still co nsistent with LMP. has very slight increase in ALT and elevated b12 (due to injection the day prior) will repeat labs today. 12/16/24 -?--?-?-?-?-?-?-?-?-?-?-?- 16w 5d 157 lb (+5 lb) 119/80 Negative -?-?-?-?-?-?-?-?-?-?-?-?- Negative 155 -?-?-?-?-?-?-?-?-?-?-?-?- KW- repeat liver enzymes today. US scheduled. no vb/cramping. no flutters yet ACOG First Trimester First Trimester: Desire for , Alcohol, Tobacco Cessation, Illicit/Recreational Drug/Substance Use, Intimate Partner Violence, Barriers to care, Unstable Housing, Communication Barriers, Environmental/Work Hazards, Anticipated Course of Care, Toxoplasmosis Precations, Use of Any medications, Sexual activity, Exercise, Dental Care, Sauna/Hot tub use, Seat Belt use, Childbirth classes/Hospital facilities, Travel, Indications for Ultrasound and Screening for Aneuploidy; Discussed Second Trimester Second Trimester: Signs and Symptoms of Labor, Selecting a care provider, Reproductive Life Planning & Contreception, Care Planning, Depression/Anxiety and Intimate Partner Violence; Discussed Tobacco Cessation Third Trimester Third Trimester: Pain Management Plans, Labor support person(s), Immediate Larc, Movement Monitoring, Signs and Symptoms of Preeclampsia, Education and Family Medical Leave or Disability Forms; Discussed Circumcision preference, Discussed Depression and Discussed Intimate Partner Violence ROS Const Reports system reviewed and no additional complaints, except as documented Eyes Reports system reviewed and no additional complaints, except as documented ENT Reports system reviewed and no additional complaints, except as documented Card Reports system reviewed and no additional complaints, except as documented Resp Reports system reviewed and no additional complaints, except as documented GI Reports system reviewed and no additional complaints, except as documented, Denies nausea and Denies vomiting Reports system reviewed and no additional complaints, except as documented Musc Reports system reviewed and no additional complaints, except as documented Skin/Breast Reports system reviewed and no additional complaints, except as documented Neuro Yes system reviewed and no additional complaints, except as documented Psych Reports system reviewed and no additional complaints, except as documented Endo Reports system reviewed and no additional complaints, except as documented Moody/Lymph Reports system reviewed and no additional complaints, except as documented Aller/Immun Reports system reviewed and no additional complaints, except as documented Exam Const General: cooperative, healthy appearing and no acute distress Orientation: alert, awake and oriented x3 Neck Neck: normal visual inspection and full ROM Resp Effort & Inspection: normal respiratory effort, able to speak in complete sentences and symmetric chest movement GI Inspection: normal to inspection Palpation: soft and other Other: gravid Skin General: no rashes or lesions noted Neuro General: patient alert, patient awake and patient oriented x3 Cognition: normal cognition Speech: speech normal Gait: normal gait Motor: muscle tone normal throughout Extrem General: normal to inspection and full ROM Psych Appearance: grossly normal Mental Status: mental status grossly normal Mood: congruent mood Affect: normal affect Speech and Movement: speech and movement normal Attitude: cooperative Thought Process: normal Thought Content: normal Judgment: judgment good Results POC Urinalysis 2 Dip (Clinic) Office Urine Glucose Negative Last Edit by Daysi Alva on 12/16/24 13:32 Office Urine Protein Negative Last Edit by Daysi Alva on 12/16/24 13:32 Coding Level of Care Code Off vis,est,level 3 Diagnoses Elevated liver enzymes R74.8 Low vitamin B12 level R79.89 Retained placenta or membranes O73.1 Ectopic O00.90 Supervision of high-risk O09.90 16 weeks gestation of Z3A.16 Weeks of gestation: 16 weeks History of herpes genitalis Z86.19 Abnormal Pap smear of cervix R87.619 Preeclampsia, severe O14.10 Assessment and Plan Assessment and Plan (1) Elevated liver enzymes: Status: Acute Comment: redraw end of October (2) Low vitamin B12 level: Status: Acute Comment: redraw nl (3) Retained placenta or membranes: Status: Acute Comment: with 2nd , without hemorrhage, resolved with curettage (4) Ectopic : Status: Acute Comment: 06/2020 (5) Supervision of high-risk : Status: Acute Comment: PRR,, ANNA 05/28 PC Landon Brennan (CF carrier), Kimmie Mendoza (6) : Status: Acute Qualifiers: Weeks of gestation: 16 weeks Qualified Code(s): Z3A.16 - 16 weeks gestation of Comment: NIPT w gender- low risk, male, carrier- declines (7) History of herpes genitalis: Status: Acute Comment: valtrex at 36 weeks, last outbreak 2019 (8) Abnormal Pap smear of cervix: Status: Acute Comment: LGSIL 09/23/16. all others nl. Pt's Mom total hysterectomy at 36. Pap 10/2024 nl. (9) Preeclampsia, severe: Status: Acute Comment: advised to start 81mg ASA daily Elevated ALT with NOB labs. redraw in 4 weeks Orders: Orders POC Urinalysis 2 Dip (Clinic) Today CBC W/Diff, Automated Today R74.8 - Abnormal levels of other serum enzymes Comprehensive Metabolic Profil Today R74.8 - Abnormal levels of other serum enzymes Plan Details Additional Comments: ACOG trimester education reviewed and updated. see problem list details for updated plan management information and see below for orders placed at this visit. GA appropriate handout given. 12/16/24 2999 <Electronically signed by Mercy menendez CNM> Date _ Mercy Avendano CNM Cosigner Signature: Date (if applicable) CC: ~ [facility] Work Phone: Reason for referral (narrative)* Consultation (Routine) - Authorized Specialty Diagnoses / Procedures Referred By Hilary khan Referred To Contact Primary Care Procedures Follow Up In Primary Care - Established Hanh Madrigal, [address] [facility] [place] [address] Referral ID Status Reason Start Date Expiration Date V isits Requested Visits Authorized [id number] Authorized 10/30/2023 10/29/[address] [facility] Work Phone: Reason for referral (narrative)* Consultation (Routine) - Authorized Specialty Diagnoses / Procedures Referred By Contac t Referred To Contact Primary Care Procedures Follow Up In Primary Care - Established Hanh Madrigal DO [address] [place] [address] Physician [place] [phone] Phone: tel: fax: Referral ID Status Reason Start Date Expiration Date V isits Requested Visits Authorized [id number] Authorized 05/06/2024 05/06/2025 1 1 [facility] Work Phone: Reason for referral (narrative)No reason for referral information availableWMarion Hospital Work Phone: Reason for visit Narrative* Consultation (Routine) - Authorized Specialty Diagnoses / Procedures Referred By Contac t Referred To Contact Primary Care Procedures Follow Up In Primary Care - Established Hanh Madrigal DO [address] [place] [address] Physician [place] [phone] Referral ID Status Reason Start Date Expiration Date V isits Requested Visits Authorized [id number] Authorized 01/23/2023 07/22/[address] [facility] Work Phone: Summary Purpose Family History Unknown Family Member Name Dates Details Family history of lung cance r: Other(V16.1, Z80.1) Status:Active Seizures: Other Status:Active Family history of malignant neoplasm of breast: Other(V16.3, Z80.3) Status:Active Family history of hyperlipid emia: Other(V18.19, Z83.438) Status:Active Family history of heart fail ure: Other(V17.49, Z82.49) Status:Active Family history of diabetes m ellitus: Other(V18.0, Z83.3) Status:Active Unknown Family Member Name Dates Details Family history of lung cance r: Other(V16.1, Z80.1) Status:Active Seizures: Other Status:Active Family history of malignant neoplasm of breast: Other(V16.3, Z80.3) Status:Active Family history of hyperlipid emia: Other(V18.19, Z83.438) Status:Active Family history of heart fail ure: Other(V17.49, Z82.49) Status:Active Family history of diabetes m ellitus: Other(V18.0, Z83.3) Status:Active Unknown Family Member Name Dates Details Family history of lung cance r: Other(V16.1, Z80.1) Status:Active Seizures: Other Status:Active Family history of malignant neoplasm of breast: Other(V16.3, Z80.3) Status:Active Family history of hyperlipid emia: Other(V18.19, Z83.438) Status:Active Family history of heart fail ure: Other(V17.49, Z82.49) Status:Active Family history of diabetes m ellitus: Other(V18.0, Z83.3) Status:Active Relationship Condition Age at Onset Recorded Date/T ernie father Squamous cell carcinoma Unknown mother Hyperlipidemia Unknown Relationship Condition Age at Onset Recorded Date/T ernie father Squamous cell carcinoma Unknown mother Hyperlipidemia Unknown brother Seizure Unknown grandmother Malignant neoplasm of breast Unknown Advance Directives Documents on File Type Date Recorded Patient Service Coordinator Expl anation Advance Directives and Livin g Will 08/27/2019 12:46 AM Latest Code Status on File Code Status Date Activated Date Inactivated Comments Full Code 08/27/2019 9:51 AM Documents on File Type Date Recorded Patient Service Coordinator Expl anation Advance Directives and Livin g Will 07/02/2020 8:30 AM Latest Code Status on File Code Status Date Activated Date Inactivated Comments Full Code 08/27/2019 9:51 AM 07/02/2020 8:16 AM Documents on File Type Date Recorded Patient Service Coordinator Expl anation Advance Directives and Livin g Will 07/05/2020 8:17 AM Advance Directive Response Recorded Date/ Time Living Will No July 07 0 12:52pm Power of Live Ammunition Inspector No July 07 020 12:52pm Advance Directive Response Recorded Date/ Time Living Will No [address], 202 0 11:52am Power of Live Ammunition Inspector No July 07, 020 11:52am Date Activated Date Inactivated Comments 08/27/2019 9:51 AM 07/02/2020 8:16 AM Discharge Instructions * Instructions* Michelle Longoria, VALUE STREAM LEADER-TELEVISION ANTENNA INSTALLER - 02/11/2019 Continue current medications including Zofran as needed for nausea. Clear liquids tonight, and then may slowly advance diet as tolerated. Please follow-up with your TANK TRUCK OPERATOR tomorrow, call for appointment. Return for new or worsening symptoms. * Attachments The following attachments cannot be sent through Care Everywhere. * : Hyperemesis Gravidarum (Guyanese) documented in this encounter* Instructions* Rosalind Silverman CNP - 08/27/2019 If any new or worsening symptoms return to the emergency department otherwise follow-up with general surgery as directed. * Attachments The following attachments cannot be sent through Care Everywhere. * Gallstones (Guyanese) * Gallbladder Disease: Low-Fat Diet (Guyanese) documented in this encounter* Discharge Instr - AVS First Page* Kendell Egan MD - 08/27/2019 4:15 PM EST DISCHARGE INSTRUCTIONS TO PATIENT PATIENT: Hanh Dolan : 1995 AGE: 24 y.o. SEX: female RACE: [1] PCP: Hanh Madrigal DO REFERRAL: No ref. provider found Diet Resume pre-procedure diet Activity ? No heavy lifting (10 pound limit). ? No strenuous exercise. ? No driving. Incision / Wound care ? Remove dressings tomorrow morning. ? If your incision was closed with SuperGlue, wash gently with soapy water once a day. ? If you notice redness or warmth of the wound or if you have a fever more than 101.4 degrees, contact our office at [phone]. Showering / Bathing Start tomorrow. Medication instructions ? Prescription written for: Port Tobacco ? Then transition to Tylenol. Follow-up Call [phone] to make an appointment to be seen in 7 to 10 days in the office. Other instructions * Additional Instructions* Giulia Womack RN - 08/27/2019 Cholecystectomy: What to Expect at Home Your Recovery After your surgery, it is normal to feel weak and tired for several days after you return home. Your belly may be swollen. If you had laparoscopic surgery, you may also have pain in your shoulder forabout 24 hours. You may have gas or need to burp a lot at first, and a few people get diarrhea. The diarrhea usually goes away in 2 to 4 weeks, but it may last longer. How quickly you recover depends on whether you had a laparoscopic or open surgery. For a laparoscopic surgery, most people can go back to work or their normal routine in 1 to 2 weeks, but it may take longer, depending on the type of work you do. For an open surgery, it will probably take 4 to 6 weeks before you get back to your normal routine. This care sheet gives you a general idea about how long it will take for you to recover. However, each person recovers at a different pace. Follow the steps below to get better as quickly as possible. How can you care for yourself at home? Activity Rest when you feel tired. Getting enough sleep will help you recover. Try to walk each day. Start out by walking a little more than you did the day before. Gradually increase the amount you walk. Walking boosts blood flow and helps prevent pneumonia and constipation. For about 2 to 4 weeks, avoid lifting anything that would make you strain. This may include a child, heavy grocery bags and milk containers, a heavy briefcase or backpack, cat litter or dog food bags, or a vacuum cooker cleaner. Avoid strenuous activities, such as biking, jogging, weightlifting, and aerobic exercise, until your doctor says it is okay. You may shower 24 to 48 hours after surgery, if your doctor okays it. Pat the cut (incision) dry. Do not take a bath for the first 2 weeks, or until your doctor tells you it is okay. You may drive when you are no longer taking pain medicine and can quickly move your foot from the gas pedal to the brake. You must also be able to sit comfortably for a long period of time, even if you do not plan to go far. You might get caught in traffic. For a laparoscopic surgery, most people can go back to work or their normal routine in 1 to 2 weeks, but it may take longer. For an open surgery, it will probably take 4 to 6 weeks before you get back to your normal routine. Your doctor will tell you when you can have sex again. Diet Eat smaller meals more often instead of fewer larger meals. You can eat a normal diet, but avoid eating fatty foods for about 1 month. Fatty foods include hamburger, whole milk, cheese, and many snack foods. If your stomach is upset, try bland, low-fat foods like plain rice, broiled chicken, toast,and yogurt. Drink plenty of fluids (unless your doctor tells you not to). If you have diarrhea, try avoiding spicy foods, dairy products, fatty foods, and alcohol. You can also watch to see if specific foods cause it, and stop eating them. If the diarrhea continues for more than 2 weeks, talk to your doctor. You may notice that your bowel movements are not regular right after your surgery. This is common. Try to avoid constipation and straining with bowel movements. You may want to take a fiber supplement every day. If you have not had a bowel movement after a couple of days, ask your doctor about taking a mild laxative. Medicines Your doctor will tell you if and when you can restart your medicines. He or she will also give you instructions about taking any new medicines. If you take aspirin or some other blood thinner, ask your doctor if and when to start taking it again. Make sure that you understand exactly what your doctor wants you to do. Take pain medicines exactly as directed. ? If the doctor gave you a prescription medicine for pain, take it as prescribed. ? If you are not taking a prescription pain medicine, take an rdni-ghv-yoklupp medicine such as acetaminophen (Tylenol), ibuprofen (Advil, Motrin), or naproxen (Aleve). Read and follow all instructions on the label. ? Do not take two or more pain medicines at the same time unless the doctor told you to. Many pain medicines contain acetaminophen, which is Tylenol. Too much Tylenol can be harmful. If you think your pain medicine is making you sick to your stomach: ? Take your medicine after meals (unless your doctor tells you not to). ? Ask your doctor for a different pain medicine. If your doctor prescribed antibiotics, take them as directed. Do not stop taking them just because you feel better. You need to take the full course of antibiotics. Incision care If you have strips of tape on the incision, or cut, leave the tape on for a week or until it falls off. After 24 to 48 hours, wash the area daily with warm, soapy water, and pat it dry. You may have demetris to hold the cut together. Keep them dry until your doctor takes them out. Thisis usually in 7 to 10 days. Keep the area clean and dry. You may cover it with a gauze bandage if it weeps or rubs against clothing. Change the bandage every day. Ice To reduce swelling and pain, put ice or a cold pack on your belly for 10 to 20 minutes at a time. Do this every 1 to 2 hours. Put a thin cloth between the ice and your skin. Follow-up care is a san part of your treatment and safety. Be sure to make and go to all appointments, and call your doctor if you are having problems. It's also a good idea to know your test resultsand keep a list of the medicines you take. When should you call for help? Call 911 anytime you think you may need emergency care. For example, call if: You passed out (lost consciousness). You are short of breath.. Call your doctor now or seek immediate medical care if: You are sick to your stomach and cannot drink fluids. You have pain that does not get better when you take your pain medicine. You cannot pass stools or gas. You have signs of infection, such as: ? Increased pain, swelling, warmth, or redness. ? Red streaks leading from the incision. ? Pus draining from the incision. ? A fever. Bright red blood has soaked through the bandage over your incision. You have loose stitches, or your incision comes open. You have signs of a blood clot in your leg (called a deep vein thrombosis), such as: ? Pain in your calf, back of knee, thigh, or groin. ? Redness and swelling in your leg or groin. Watch closely for any changes in your health, and be sure to contact your doctor if you have any problems. Where can you learn more? Log into your personal health record on https://CarWale.Supportie and enter F357 in the Education box to learn more about Cholecystectomy: What to Expect at Home. Current as of: February 10, 2019 Content Version: 12.3 [employer]. Care instructions adapted under license by your healthcare professional. If you have questions about a medical condition or this instruction, always ask your healthcare professional. [employer] disclaims any warranty or liability for your use of this information. GENERAL POST-OPERATIVE PATIENT INSTRUCTIONS ANESTHESIA PRECAUTIONS: A responsible adult must stay with you for at least 24 hours after surgery. You may feel light headed,, dizzy, or nauseated during this time. Do not operate a vehicle (car, bike, motorcycle, registered medical assistant) machinery or power tools. Do not make any important decisions or drink any alcoholic beverages for 24 hours. Children should remain quiet today. No riding of bicycles, motorcycles, skateboards, playing on swings etc. Drink plenty of fluids today. Eat light, small, frequent meals today. Resume regular diet tomorrow. FOLLOW-UP: Please make an appointment with your physician for follow-up. Call your physician immediately if you have any fevers greater than 101, drainage from your wound that is not clear or looks infected, persistent bleeding, increasing abdominal pain, problems urinating, or persistent nausea/vomiting. DIET: You may eat any foods that you can tolerate. It is a good idea to eat a high fiber diet and take in plenty of fluids to prevent constipation. If you do become constipated you may want to take amild laxative or take ducolax tablets on a daily basis until your bowel habits are regular. Constipation can be very uncomfortable, along with straining, after recent surgery. ACTIVITY: You are encouraged to cough and deep breathe or use your incentive spirometer if you weregiven one, every 15-30 minutes when awake. This will help prevent respiratory complications and lowgrade fevers post-operatively if you had a general anesthetic. You are encouraged to walk and engage in light activity for the next two weeks. MEDICATIONS: Try to take narcotic medications and anti-inflammatory medications, such as ibuprofen,naprosyn, etc., with food. This will minimize stomach upset from the medication. Should you developnausea and vomiting from the pain medication, or develop a rash, please discontinue the medication and contact your physician. You should not drive, make important decisions, or operate machinery when taking narcotic pain medication. Do not take tylenol or tylenol products with narcotic medications. QUESTIONS: Please feel free to call your physician or the hospital channel machine operator if you have any questions, and they will be glad to assist you. documented in this encounter* Instructions* Yannick Rene MD - 07/02/2020 Please return to the emergency department if you have any concerns, start to feel extremely lightheaded, pass out, or have increasing severe abdominal pain * Attachments The following attachments cannot be sent through Care Everywhere. * : Ectopic (Guyanese) documented in this encounter* Attachments The following attachments cannot be sent through Care Everywhere. * COVID-19 SELF ISOLATION DISCHARGE INSTRUCTIONS * URI (Upper Respiratory Infection) (Guyanese) documented in this encounter Assessments Diagnosis Nausea and vomiting in prior to 22 weeks gestation- Primary Mild hyperemesis gravidarum, unspecified as to episode of care Mild dehydration Dehydration Diagnosis Right upper quadrant abdominal pain Nausea Nausea alone Gallbladder sludge Gallbladder colic Diagnosis Acute cholecystitis Post-op pain Other acute postoperative pain Calculus of gallbladder with acute cholecystitis and obstruction Diagnosis Encounter for surgical aftercare following surgery of digestive system Diagnosis Right ovarian without intrauterine - Primary Diagnosis Exposure to COVID-19 virus- Primary Acute URI Acute upper respiratory infections of unspecified site History of Present Illness * Kendell Egan MD - 09/06/2019 10:59 AM EST PROGRESS NOTE - 09/06/19 PATIENT: Hanh Dolan : 1995 AGE: 24 y.o. SEX: female RACE: [1] PCP: Hanh Madrigal DO REFERRAL: No ref. provider found Reason for Visit F/u after cholecystectomy Subjective C/o some pain at the umbilical incision. The following PMH, PSH, MEDS, and ALLERGIES were reviewed and updated as needed during today s encounter. PMH / PSH Past Medical History: Diagnosis Date Anemia Takes oral iron supplements Anxiety Calculus of gallbladder with acute cholecystitis 08/2019 required cholecystectomy Preeclampsia Past Surgical History: Procedure Laterality Date CHOLECYSTECTOMY LAPAROSCOPIC N/A 08/27/2019 acute cholecystitis due to gallstones......Dr. Kendell Egan D & C WITH [facility] 07/2019 for placental issues post delivery LABOR WISDOM TOOTH EXTRACTION MEDS has a current medication list which includes the following prescription(s): hydrocodone-acetaminophen, ondansetron, ondansetron, and sertraline. ALLERGIES Allergies Allergen Reactions Macrobid [Nitrofurantoin Monohyd/M-Cryst] Hives Nickel Sulfa (Sulfonamide Antibiotics) Hives Vitals BP 110/80 Pulse (!) 113 Temp 97.5 F (36.4 C) Wt 61.7 kg (136 lb) LMP 08/23/2019 (Exact Date) BMI 24.09 kg/m Exam Alert, NAD, cooperative, gait normal Abd: Soft, NT, ND Incisions CDI Diagnostic tests (if any) Assessment / Plan Doing well. Start exercising slowly and build up tolerance. OK to return to work with no restrictions. Follow-up PRN. Layout PNSHETH documented in this encounter Chief Complaint * 25 y/o female presents for 6 month f/u * Denies needing medication RF's * Pt states she has been doing well on the bupropion * Pt has a work paper she needs filled out * 25 y/o female presents for 6 month f/u * Denies needing medication RF's * Pt states she has been doing well on the bupropion * Pt has a work paper she needs filled out * 27 y/o female presents for physical for work * Medication proposed Chief Complaint and Reason for Visit Chief Complaint MASTODYNIA Chief Complaint E-ORDER NOB LMP ? iud REMOVED 03/10 Reason for Visit History of abnormal cervical Pap smear History of pre-eclampsia in prior , currently Supervision of high risk in first trimester Chief Complaint E-ORDER NOB LMP ? iud REMOVED 03/10 E-ORDER AND PAPER ORDER E ORDER & BOX 11 WK OB Reason for Visit History of abnormal cervical Pap smear History of pre-eclampsia in prior , currently Supervision of high risk in first trimester History of pre-eclampsia in prior , currently Supervision of high risk in first trimester Chief Complaint 16 WK OB, pt request 20 WK OB 24 WK OB E ORDERS 28 WK OB /GLUCOSE Reason for Visit History of pre-eclam psia in prior , currently Supervision of high risk in first trimester History of abnormal cervical Pap smear History of pre-eclampsia in prior , currently Supervision of high risk in first trimester History of pre-eclampsia in prior , currently Supervision of high risk in first trimester History of abnormal cervical Pap smear History of pre-eclampsia in prior , currently Supervision of high risk in first trimester Chief Complaint 20 WK OB 24 WK OB E ORDERS 28 WK OB /GLUCOSE 30 WK OB 32 WK OB 34 WK OB GROWTH Reason for Visit History of abnormal cervical Pap smear History of pre-eclampsia in prior , currently Supervision of high risk in first trimester History of pre-eclampsia in prior , currently Supervision of high risk in first trimester History of abnormal cervical Pap smear History of pre-eclampsia in prior , currently Supervision of high risk in first trimester COVID-19 affecting in third trimester History of pre-eclampsia in prior , currently Supervision of high risk in first trimester COVID-19 affecting in third trimester History of abnormal cervical Pap smear History of pre-eclampsia in prior , currently Supervision of high risk in first trimester COVID-19 affecting in third trimester History of pre-eclampsia in prior , currently Large for dates affecting management of mother Supervision of high risk in first trimester Chief Complaint Admit Date NOB: LMP 08/21, ANNA 05/28 *Doc and midwif e only* October 25, 2024 12:46pm Reason for Visit Admit Date Abnormal Pap smear of cervix October 25, 2024 12:46pm Ectopic October 25, 2024 12: 46pm History of herpes genitalis October 25, 2024 12:46pm Low vitamin B12 level October 25, 2024 1 2:46pm Preeclampsia, severe October 25, 2024 12 :46pm October 25, 2024 12: 46pm Retained placenta or membranes October 12:46pm Supervision of high-risk October 25, 2024 12:46pm Chief Complaint Admit Date NOB: LMP 08/21, ANNA 05/28 *Doc and midwif e only* October 25, 2024 12:46pm 13WK OB November 22, 2024 1:30p m Reason for Visit Admit Date Abnormal Pap smear of cervix October 25, 2024 12:46pm Ectopic October 25, 2024 12: 46pm History of herpes genitalis October 25, 2024 12:46pm Low vitamin B12 level October 25, 2024 1 2:46pm Preeclampsia, severe October 25, 2024 12 :46pm October 25, 2024 12: 46pm Retained placenta or membranes October 12:46pm Supervision of high-risk October 25, 2024 12:46pm Abnormal Pap smear of cervix November 22, 2 025 1:30pm Ectopic November 22, 2024 1:30p m Elevated liver enzymes November 22, 2024 1: 30pm History of herpes genitalis November 22 1:30pm Low vitamin B12 level November 22, 2024 1:3 0pm Preeclampsia, severe November 22, 2024 1:30 pm November 22, 2024 1:30p m Retained placenta or membranes November 22, 2024 1:30pm Supervision of high-risk November 012024 1:30pm Chief Complaint Admit Date NOB: LMP 08/21, ANNA 05/28 *Doc and midwif e only* October 25, 2024 12:46pm 13WK OB November 22, 2024 1:30p m 17wk ob December 16, 2024 1:21 pm Reason for Visit Admit Date Abnormal Pap smear of cervix October 25, 2024 12:46pm Ectopic October 25, 2024 12: 46pm History of herpes genitalis October 25, 2024 12:46pm Low vitamin B12 level October 25, 2024 1 2:46pm Preeclampsia, severe October 25, 2024 12 :46pm October 25, 2024 12: 46pm Retained placenta or membranes October 12:46pm Supervision of high-risk October 25, 2024 12:46pm Abnormal Pap smear of cervix November 22, 2 025 1:30pm Ectopic November 22, 2024 1:30p m Elevated liver enzymes November 22, 2024 1: 30pm History of herpes genitalis November 22 1:30pm Low vitamin B12 level November 22, 2024 1:3 0pm Preeclampsia, severe November 22, 2024 1:30 pm November 22, 2024 1:30p m Retained placenta or membranes November 22, 2024 1:30pm Supervision of high-risk November 012024 1:30pm Abnormal Pap smear of cervix December 16, 2024 1:21pm Ectopic December 16, 2024 1:21 pm Elevated liver enzymes December 16, 2024 1 :21pm History of herpes genitalis December 16, 025 1:21pm Low vitamin B12 level December 16, 2024 1: 21pm Preeclampsia, severe December 16, 2024 1:2 1pm December 16, 2024 1:21 pm Retained placenta or membranes December 1:21pm Supervision of high-risk December 16, 2024 1:21pm Additional Source Comments INFORMATION SOURCE (unrecogn ized section and content) DATE CREATED AUTHOR 08/21/2018 [facility] DATE CREATED AUTHOR AUTHOR'S ORGANIZ ATION 02/11/2019 [facility] DATE CREATED AUTHOR AUTHOR'S ORGANIZ ATION 07/05/2020 [facility] DATE CREATED AUTHOR AUTHOR'S ORGANIZ ATION 08/08/2022 [facility] DATE CREATED AUTHOR AUTHOR'S ORGANIZ ATION 08/08/2022 [facility] DATE CREATED AUTHOR AUTHOR'S ORGANIZ ATION 01/23/2023 [facility] DATE CREATED AUTHOR AUTHOR'S ORGANIZ ATION 03/04/2023 [facility] DATE CREATED AUTHOR AUTHOR'S ORGANIZ ATION 05/09/2024 [facility] DATE CREATED AUTHOR AUTHOR'S ORGANIZ ATION 05/21/2024 [facility] DATE CREATED AUTHOR AUTHOR'S ORGANIZ ATION 06/18/2024 [facility] DATE CREATED AUTHOR AUTHOR'S ORGANIZ ATION 09/04/2024 [facility] DATE CREATED AUTHOR AUTHOR'S ORGANIZ ATION 09/27/2024 [facility] DATE CREATED AUTHOR AUTHOR'S ORGANIZ ATION 10/04/2024 [facility] DATE CREATED AUTHOR AUTHOR'S ORGANIZ ATION 12/13/2024 [facility] Reason for Visit (unrecogniz ed section and content) Reason Comments Problem Woke up this am and started vomiting - took Zofran 4mg x 2 today - and continues to vomit. 16 weeks . CYRUS [place] Generalized Body Aches C/o bodya aches 4 /10 - family at home with fevers Dizziness started at 1200 Abdominal Pain 2/10 cramping lwer a bd comes and goes. Reason Comments Abdominal Pain Status Reason Specialty Diagnoses / Procedures Referre d By Contact Referred To Contact Diagnoses Acute cholecystitis Reason Comments Follow-up cholecystectomy Reason Comments Sore Throat x2days Nasal Congestion Cough Reason Comments discuss removal iud Establish Care Reason Comments Annual Exam + DUE 2023Wellness exam for insuranceLabs need ordered Would like to get back on B12 injections Reason Comments Follow-up 6 month Specialty Diagnoses / Procedures Referred By Hilary khan Referred To Contact Primary Care Procedures Follow Up In Primary Care - Established Hanh Madrigal DO [address] [facility] [place] [address] Phone: tel: fax: Referral ID Status Reason Start Date Expiration Date V isits Requested Visits Authorized [id number] Authorized 10/30/2023 10/29/2024 1 1 Reason Comments New Patient Visit Chronic diarrhea sukhwinder ry day 2-3x a day and after she eats. Abd pain/cramping after eating.Breast feeding. Reason Comments Follow-up Patient started taki ng cholestyramine and states it made her symptoms a lot better. Rosalind Silverman, TELEVISION ANTENNA INSTALLER - 08/27/2019 2:31 AM Deep Gooden RN - 08/26/2019 11:58 PM Megan Almazan RN - 08/27/2019 12:10 PM Megan Almazan RN - 08/27/2019 8:34 AM EST ED Notes (unrecognized secti on and content) [facility] ED [place] Note: NAME: Hanh Dolan 24 y.o. CSN: [id number] PCP: Hanh Madrgial DO History: Chief Complaint: Abdominal Pain HPI: The history was obtained from the patient. Hanh is a 24 y.o. female who presents with a chief complaint of Abdominal Pain. Assumed care of this patient from Dr. Hull. Patient is 7 weeks . Is complained of intermittent right upper quadrant pain that is become steady this evening. She denies previous history of similar. She denies fever, chills, diaphoresis, shortness of breath, chest pain, urinary or bowel symptoms. She is currently breast-feeding and has not treated her symptoms. PMHx: Past Medical History: Diagnosis Date Anxiety PMSx: History reviewed. No pertinent surgical history. FAM. Hx: History reviewed. No pertinent family history. SOC. Hx: Social History Socioeconomic History Marital status: Spouse name: Not on file Number of children: Not on file Years of education: Not on file Highest education level: Not on file Occupational History Not on file Social Needs Financial resource strain: Not on file Food insecurity Worry: Not on file Inability: Not on file Transportation needs Medical: Not on file Non-medical: Not on file Tobacco Use Smoking status: Never Smoker Smokeless tobacco: Never Used Substance and Sexual Activity Alcohol use: Never Frequency: Never Drug use: Never Sexual activity: Not on file Lifestyle Physical activity Days per week: Not on file Minutes per session: Not on file Stress: Not on file Relationships Social connections Talks on phone: Not on file Gets together: Not on file Attends quaker service: Not on file Active member of club or organization: Not on file Attends meetings of clubs or organizations: Not on file Relationship status: Not on file Other Topics Concern Not on file Social History Narrative Not on file MEDs: Previous Medications Medication Sig sertraline (ZOLOFT) 100 MG tablet Take 100 mg by mouth daily . ALL: Allergies Allergen Reactions Macrobid [Nitrofurantoin Monohyd/M-Cryst] Hives Nickel Sulfa (Sulfonamide Antibiotics) Hives ROS: Review of Systems Positives and pertinent negatives as per HPI. All other systems were reviewed and are negative. Physical Exam: Patient Vitals for the past 24 hrs: BP Temp Temp src Pulse Resp SpO2 08/27/19 0118 137/78 (!) 54 15 99 % 08/26/19 2355 97.7 F (36.5 C) Oral 08/26/19 2344 136/89 68 18 98 % Physical Exam Vitals signs and nursing note reviewed. Constitutional: Appearance: She is well-developed. HENT: Head: Normocephalic and atraumatic. Nose: Nose normal. Eyes: General: No scleral icterus. Conjunctiva/sclera: Conjunctivae normal. Cardiovascular: Rate and Rhythm: Regular rhythm. Heart sounds: No murmur. Pulmonary: Effort: Pulmonary effort is normal. No respiratory distress. Abdominal: Palpations: Abdomen is soft. Tenderness: There is abdominal tenderness in the right upper quadrant. Musculoskeletal: Right lower leg: She exhibits no swelling. No edema. Left lower leg: She exhibits no swelling. No edema. Skin: General: Skin is warm and dry. Findings: No rash. Neurological: Mental Status: She is alert and oriented to person, place, and time. Psychiatric: Behavior: Behavior normal. Laboratory & Radiological Imaging (if done): Labs Reviewed CHEM 7 - Abnormal; Notable for the following components: Result Value Anion Gap 9 (*) All other components within normal limits Narrative: The eGFR should be used for monitoring renal function only and not for medication dosing. HEPATIC FUNCTION PANEL - Abnormal; Notable for the following components: Total Protein 8.1 (*) All other components within normal limits URINALYSIS - Abnormal; Notable for the following components: Leukocyte Esterase, Urine Trace (*) WBCs, Urine 8 (*) Bacteria, Urine Rare (*) All other components within normal limits Narrative: Microscopic examination is performed on all urinalysis samples and only positive findings are reported. The test for blood on the chemical analytic portion of urinalysis may also be positive due to hemoglobinuria and myoglobinuria and if red blood cells are present they are quantified by microscopic examination. D-DIMER, QUANTITATIVE - Abnormal; Notable for the following components: D-Dimer 0.55 (*) All other components within normal limits Narrative: A D-dimer concentration of <0.5 micrograms per milliliter FEU is considered a low probability for pulmonary embolus (PE) and deep venous thrombosis (DVT). Results of this test should always be interpreted in conjunction with the patient's medical history,clinical presentation, and other findings. Clinical diagnosis should not be based on the results of the D-dimer alone. CBC WITH AUTO DIFFERENTIAL - Abnormal; Notable for the following components: MCH 25.2 (*) RDW - CV 15.1 (*) Lymphocytes Abs 4.37 (*) All other components within normal limits LIPASE - Normal HCG URINE, QUALITATIVE - Normal URINE AEROBIC CULTURE CBC AND DIFFERENTIAL Narrative: The following orders were created for panel order CBC w/ Diff. Procedure Abnormality Status --------- ------ CBC Auto Differential[[id number]] Abnormal Final result Please view results for these tests on the individual orders. CTA Pulm Art and CT Abd Pelvis with IV contrast Preliminary Result 1. No pulmonary arterial embolism, aortic dissection, or other acute diagnostic abnormality in the chest, abdomen or pelvis. 2. Cholelithiasis. 3. Small fat-containing umbilical hernia. 4. Moderate colonic stool. WPT/hff Workstation ID: [id number] XR Chest AP/PA and LAT Final Result Normal chest. Workstation ID: [id number] US Abdomen Limited Study Preliminary Result Small nonshadowing stones and sludge in the dependent gallbladder. Echogenic foci with some posterior shadowing may represent adherent small stones; polyp is also a diagnostic consideration however no definite vascularity is seen. No biliary ductal dilatation. No sonographic Hughes's sign. ASC/rlc Workstation ID: [id number] MDM: ED Course as of Aug 27 023 Tue Aug 27, 2019 0207 IMPRESSION: 1. No pulmonary arterial embolism, aortic dissection, or other acute diagnostic abnormality in the chest, abdomen or pelvis 2. Cholelithiasis. 3. Small fat containing umbilical hernia. 4. Moderate colonic stool. [SS] 0207 Small nonshadowing stones and sludge in the dependent gallbladder. Echogenic foci with some posterior shadowing may represent adherent small stones; polyp is also a diagnostic consideration however no definite vascularity is seen. No biliary ductal dilatation. No sonographic Hughes's sign. [SS] ED Course User Index [SS] Rosalind Silverman CNP Discussed all findings with patient who opts for discharge will return if pain persists or worsens. Patient aware that while taking pain medication she should pump and discard breast milk. Patient denies any other complaints or concerns and verbalizes appropriate understanding of all home-going instructions and recommended follow-up with general surgery. Clinical Impression: 1. Gallbladder colic 2. Right upper quadrant abdominal pain 3. Nausea 4. Gallbladder sludge Disposition: Patient is being discharge home. New Prescriptions ondansetron (ZOFRAN) 4 MG tablet Take 1 (one) tablet (4 mg total) by mouth every 6 (six) hours as needed for nausea HOMEPACK . HYDROcodone-acetaminophen (XODOL) 5-300 mg per tablet Take 1 (one) tablet by mouth every 4 (four) hours as needed for pain (Days supply per fill: 1) Homepack . ondansetron (ZOFRAN) 4 MG tablet Take 1 (one) tablet (4 mg total) by mouth every 8 (eight) hours as needed for nausea . HYDROcodone-acetaminophen (Vicodin) 5-300 mg per tablet Take 1 (one) tablet by mouth every 4 (four) hours as needed for pain (Days supply per fill: 2) . MARÍA Harris ED Advanced Practice Provider [facility] Emergency Department (Please note that portions of this note have been completed with a voice recognition software. Efforts were made to correct any errors, but occasionally words are mis-transcribed.) Rosalind Silverman CNP 08/27/19 0258 Patient reports right upper quadrant abdominal pain that started about 4 days ago. Denies any urinary symptoms. Patient complains of nausea with no vomiting. Family history of gallbladder problems. documented in this encounter REPORT CALLED TO ROSANNE HAYES PT STATES SHE WAS ON RECENT ATB FOR MASTITIS. STATES SHE COMPLETED DOXYCYCLINE. ED PROVIDER NOTE [facility] EMERGENCY DEPARTMENT NAME: Hanh Dolan AGE: 24 y.o. : 1995 VISIT DATE: 08/27/2019 CSN: [id number] PCP: Hanh Madrigal DO Chief Complaint Patient presents with Abdominal Pain I took over care of this patient from Dr. Marie. I was to check the results of the ultrasound. Ultrasound revealed acute cholecystitis. I did place a fresh set of labs after this. I contacted general surgeryLinda, nurse practitioner. I also placed pain and nausea medicine and updated the patient. She is aware of the findings and we are awaiting general surgery consultation. Past Medical History: Diagnosis Date Anxiety Preeclampsia Past Surgical History: Procedure Laterality Date D & C WITH LEEP LABOR WISDOM TOOTH EXTRACTION History reviewed. No pertinent family history. Social History Socioeconomic History Marital status: Spouse name: Not on file Number of children: Not on file Years of education: Not on file Highest education level: Not on file Occupational History Not on file Social Needs Financial resource strain: Not on file Food insecurity Worry: Not on file Inability: Not on file Transportation needs Medical: Not on file Non-medical: Not on file Tobacco Use Smoking status: Never Smoker Smokeless tobacco: Never Used Substance and Sexual Activity Alcohol use: Never Frequency: Never Drug use: Never Sexual activity: Not on file Lifestyle Physical activity Days per week: Not on file Minutes per session: Not on file Stress: Not on file Relationships Social connections Talks on phone: Not on file Gets together: Not on file Attends quaker service: Not on file Active member of club or organization: Not on file Attends meetings of clubs or organizations: Not on file Relationship status: Not on file Other Topics Concern Not on file Social History Narrative Not on file Previous Medications Medication Sig HYDROcodone-acetaminophen (Vicodin) 5-300 mg per tablet Take 1 (one) tablet by mouth every 4 (four) hours as needed for pain (Days supply per fill: 2) . HYDROcodone-acetaminophen (XODOL) 5-300 mg per tablet Take 1 (one) tablet by mouth every 4 (four) hours as needed for pain (Days supply per fill: 1) Homepack . ondansetron (ZOFRAN) 4 MG tablet Take 1 (one) tablet (4 mg total) by mouth every 6 (six) hours as needed for nausea HOMEPACK . ondansetron (ZOFRAN) 4 MG tablet Take 1 (one) tablet (4 mg total) by mouth every 8 (eight) hours as needed for nausea . sertraline (ZOLOFT) 100 MG tablet Take 100 mg by mouth daily . Allergies Allergen Reactions Macrobid [Nitrofurantoin Monohyd/M-Cryst] Hives Nickel Sulfa (Sulfonamide Antibiotics) Hives Review of Systems Gastrointestinal: Positive for abdominal pain and nausea. All other systems reviewed and are negative. Patient Vitals for the past 24 hrs: BP Temp Temp src Pulse Resp SpO2 Height Weight 08/27/19 0835 124/72 98.2 F (36.8 C) Oral 61 16 98 % 08/27/19 0617 107/83 97.9 F (36.6 C) Oral 90 17 97 % 5' 3 63.5 kg (140 lb) Physical Exam Vitals signs and nursing note reviewed. Constitutional: Appearance: She is well-developed and normal weight. She is not toxic-appearing. HENT: Head: Normocephalic and atraumatic. Mouth/Throat: Mouth: Mucous membranes are moist. Eyes: Extraocular Movements: Extraocular movements intact. Conjunctiva/sclera: Conjunctivae normal. Neck: Musculoskeletal: Normal range of motion and neck supple. Cardiovascular: Rate and Rhythm: Normal rate and regular rhythm. Heart sounds: Normal heart sounds. Pulmonary: Effort: Pulmonary effort is normal. Breath sounds: Normal breath sounds. Abdominal: General: Bowel sounds are normal. There is no distension. Palpations: Abdomen is soft. Tenderness: There is abdominal tenderness in the right upper quadrant. Positive signs include Hughes's sign. Musculoskeletal: Normal range of motion. General: No tenderness or deformity. Skin: General: Skin is warm and dry. Findings: No rash. Neurological: General: No focal deficit present. Mental Status: She is alert and oriented to person, place, and time. Psychiatric: Mood and Affect: Mood normal. Behavior: Behavior normal. Laboratory & Radiographic Imaging (if done): Results for orders placed or performed during the hospital encounter of 08/27/19 BMP Result Value Ref Range Sodium 139 135 - 145 mmol/L Potassium 4.3 3.5 - 5.1 mmol/L Chloride 110 (H) 98 - 108 mmol/L Bicarbonate 23 21 - 32 mmol/L Anion Gap 10 10 - 20 mmol/L Glucose 92 65 - 99 mg/dL BUN 10 8 - 25 mg/dL Creatinine 0.89 0.40 - 1.10 mg/dL eGFR 91 >=60 mL/min/1.73 m2 BUN/Creatinine Ratio 11.2 10.0 - 20.0 Calcium 8.6 8.4 - 10.2 mg/dL Hepatic Function Panel (LFT) Result Value Ref Range Total Protein 7.2 6.0 - 8.0 g/dL Albumin 3.6 3.2 - 5.2 g/dL Total Bilirubin 0.1 0.0 - 1.3 mg/dL Bilirubin, Direct <0.1 0.0 - 0.4 mg/dL Alkaline Phosphatase 85 40 - 140 U/L AST 13 0 - 45 U/L ALT 19 14 - 65 U/L HCG (QUALITATIVE) Result Value Ref Range Beta-hCG Qual Negative Negative CBC Auto Differential Result Value Ref Range WBC 10.31 4.50 - 11.00 K/mcL RBC 4.60 4.00 - 5.20 M/mcL Hemoglobin 11.8 (L) 12.0 - 16.0 g/dL Hematocrit 36.9 36.0 - 46.0 % MCV 80.2 80.0 - 100.0 fL MCH 25.7 (L) 26.0 - 34.0 pg MCHC 32.0 31.0 - 37.0 g/dL Platelets 210 150 - 400 K/mcL RDW - CV 15.0 (H) 11.6 - 14.8 % MPV 10.6 9.0 - 15.5 fL Neutrophils 70.4 % Lymphocytes 23.1 % Monocytes 4.9 % Eosinophils 1.0 % Basophils 0.2 % IG Percent 0.40 % Neutrophils Abs 7.26 (H) 1.70 - 7.00 K/mcL Lymphocytes Abs 2.38 0.90 - 4.00 K/mcL Monocytes Abs 0.51 0.30 - 0.90 K/mcL Eosinophils Abs 0.10 0.00 - 0.50 K/mcL Basophils Abs 0.02 0.00 - 0.30 K/mcL IG Absolute 0.04 0.00 - 0.30 K/mcL Nucleated RBC 0.0 % Nucleated RBC Abs 0.00 0.00 - 0.00 K/mcL US Abdomen Limited Study Final Result Cholelithiasis with findings equivocal for acute cholecystitis. If high clinical concern, a HIDA scan could be performed. Workstation ID: [id number] Procedures MDM The patient has been informed that they may have pre-hypertension or hypertension based on a blood pressure reading in the Emergency Department. I recommend that the patient call the primary care provider listed on their discharge instructions or a physician of their choice as soon as possible to arrange follow-up in the next 4 weeks for further evaluation of possible pre-hypertension or hypertension. . Clinical Impression: 1. Acute cholecystitis ED Disposition ED Disposition Condition Comment Hospitalize Follow-up Information Follow-up information has not been specified. Contact information for after-discharge care Follow-up information has not been specified. Concepcion Arceo PA-C 08/27/19 0958 ED PROVIDER NOTE [facility] EMERGENCY DEPARTMENT NAME: Hanh Dolan AGE: 24 y.o. : 1995 VISIT DATE: 08/27/2019 CSN: [id number] PCP: Hanh Madrigal DO Chief Complaint Patient presents with Abdominal Pain Right upper quadrant pain that continues patient was just seen and evaluated a few hours ago she has known gallstones History provided by: Patient Abdominal Pain Pain location: RUQ Chronicity: Recurrent Pain quality: cramping and shooting Pain radiates to: RUQ Pain severity: Severe Timing: Intermittent Progression: Waxing and waning Past Medical History: Diagnosis Date Anxiety Preeclampsia Past Surgical History: Procedure Laterality Date D & C WITH LEEP LABOR WISDOM TOOTH EXTRACTION History reviewed. No pertinent family history. Social History Socioeconomic History Marital status: Spouse name: Not on file Number of children: Not on file Years of education: Not on file Highest education level: Not on file Occupational History Not on file Social Needs Financial resource strain: Not on file Food insecurity Worry: Not on file Inability: Not on file Transportation needs Medical: Not on file Non-medical: Not on file Tobacco Use Smoking status: Never Smoker Smokeless tobacco: Never Used Substance and Sexual Activity Alcohol use: Never Frequency: Never Drug use: Never Sexual activity: Not on file Lifestyle Physical activity Days per week: Not on file Minutes per session: Not on file Stress: Not on file Relationships Social connections Talks on phone: Not on file Gets together: Not on file Attends quaker service: Not on file Active member of club or organization: Not on file Attends meetings of clubs or organizations: Not on file Relationship status: Not on file Other Topics Concern Not on file Social History Narrative Not on file Previous Medications Medication Sig HYDROcodone-acetaminophen (Vicodin) 5-300 mg per tablet Take 1 (one) tablet by mouth every 4 (four) hours as needed for pain (Days supply per fill: 2) . HYDROcodone-acetaminophen (XODOL) 5-300 mg per tablet Take 1 (one) tablet by mouth every 4 (four) hours as needed for pain (Days supply per fill: 1) Homepack . ondansetron (ZOFRAN) 4 MG tablet Take 1 (one) tablet (4 mg total) by mouth every 6 (six) hours as needed for nausea HOMEPACK . ondansetron (ZOFRAN) 4 MG tablet Take 1 (one) tablet (4 mg total) by mouth every 8 (eight) hours as needed for nausea . sertraline (ZOLOFT) 100 MG tablet Take 100 mg by mouth daily . Allergies Allergen Reactions Macrobid [Nitrofurantoin Monohyd/M-Cryst] Hives Nickel Sulfa (Sulfonamide Antibiotics) Hives Review of Systems Gastrointestinal: Positive for abdominal pain. All other systems reviewed and are negative. Patient Vitals for the past 24 hrs: BP Temp Temp src Pulse Resp SpO2 Height Weight 08/27/19 0617 107/83 97.9 F (36.6 C) Oral 90 17 97 % 5' 3 63.5 kg (140 lb) Physical Exam Vitals signs and nursing note reviewed. Exam conducted with a distribution sales manager present. Constitutional: Appearance: She is well-developed. HENT: Head: Normocephalic and atraumatic. Eyes: Extraocular Movements: Extraocular movements intact. Pupils: Pupils are equal, round, and reactive to light. Cardiovascular: Rate and Rhythm: Normal rate and regular rhythm. Pulmonary: Effort: Pulmonary effort is normal. Breath sounds: Normal breath sounds. Abdominal: General: Abdomen is flat. Palpations: Abdomen is soft. Comments: Right upper quadrant tenderness no peritoneal signs Genitourinary: Comments: No CVA tenderness Skin: General: Skin is warm and dry. Capillary Refill: Capillary refill takes less than 2 seconds. Neurological: Mental Status: She is alert. Comments: NIHSS 0 Psychiatric: Mood and Affect: Mood normal. Behavior: Behavior normal. Laboratory & Radiographic Imaging (if done): No results found for this visit on 08/27/19. US Abdomen Limited Study (Results Pending) Procedures MDM The patient has been informed that they may have pre-hypertension or hypertension based on a blood pressure reading in the Emergency Department. I recommend that the patient call the primary care provider listed on their discharge instructions or a physician of their choice as soon as possible to arrange follow-up in the next 4 weeks for further evaluation of possible pre-hypertension or hypertension. . Clinical Impression: No diagnosis found. ED Disposition None Follow-up Information Follow-up information has not been specified. Contact information for after-discharge care Follow-up information has not been specified. Corey Marie DO 08/27/19 0655 PT. STATES, THEY THINK IT'S MY GALL BLADDER. I'VE BEEN HAVING RUQ PAIN FOR THE LAST 4 DAYS. MY PAIN IS GOING INTO MY BACK NOW AND UP INTO MY CHEST. PT. SAYS SHE WAS HERE EARLIER TODAY. PT. C/O N/V AND SAYS ZOFRAN AND HEATING PAD DIDN'T HELP. documented in this encounter This nurse cartside with Dr. Cruz for medication administration. PATIENT UPDATED ON PLAN OF CARE. PATIENT DENIES NEEDS AT THIS TIME. WILL CONTINUE TO MONITOR. PATIENT UPDATED ON PLAN OF CARE. PATIENT VERBALIZES UNDERSTANDING. Dr. Dobbs office called for Dr. Rene. Stated doctor was at lunch and they would have to call us back at 1315. 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 TRANSFERRED TO SIENNA MCKEON THIS PSA HAS LEFT A VOICE MESSAGE WITH [facility] FOR DR Cameron TO CALL SIENNA MCKEON AT [facility]. LEFT A PHONE NUMBER ALSO. THIS PSA ATTEMPTED TO CALL [facility]. NO ANSWER. WILL CONTINUE TO CALL. [facility] ED [place] Note: NAME: Hanh Dolan 25 y.o. CSN: [id number] PCP: Hanh Madrigal DO History: Chief Complaint: Abdominal Pain HPI: The history was obtained from the patient. Hanh is a 25 y.o. female who presents with a chief complaint of Abdominal Pain. Right lower quadrant abdominal pain started yesterday. Also noted nausea and decreased appetite. Reporting chills, no fever. No vomiting, diarrhea, bloody stools, urinary symptoms. She had an IUD placed in April. States she is currently on her cycle and has been bleeding since 06/23/2020. Last in July. She is still breast-feeding. PMHx: Past Medical History: Diagnosis Date Anemia Takes oral iron supplements Anxiety Calculus of gallbladder with acute cholecystitis 08/2019 required cholecystectomy Mastitis 09/2019 Preeclampsia PMSx: Past Surgical History: Procedure Laterality Date CHOLECYSTECTOMY LAPAROSCOPIC N/A 08/27/2019 acute cholecystitis due to gallstones......Dr. Kendell Egan D & C WITH [facility] 07/2019 for placental issues post delivery LABOR WISDOM TOOTH EXTRACTION FAM. Hx: Family History Problem Relation Age of Onset Other (HTN) Mother Other (SCCA head and neck) Father Breast cancer Maternal Grandmother Lung cancer Maternal Grandfather Other (HTN) Maternal Grandfather Other (DM) Maternal Grandfather Other (Hairy cell leukemia) Paternal Grandmother SOC. 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[employer] Social Needs Financial resource strain: Not on file Food insecurity Worry: Not on file Inability: Not on file Transportation needs Medical: Not on file Non-medical: Not on file Tobacco Use Smoking status: Never Smoker Smokeless tobacco: Never Used Substance and Sexual Activity Alcohol use: Yes Frequency: Never Comment: rarely Drug use: Never Sexual activity: Not on file Lifestyle Physical activity Days per week: Not on file Minutes per session: Not on file Stress: Not on file Relationships Social connections Talks on phone: Not on file Gets together: Not on file Attends quaker service: Not on file Active member of club or organization: Not on file Attends meetings of clubs or organizations: Not on file Relationship status: Not on file Other Topics Concern Not on file Social History Narrative Not on file MEDs: Previous Medications Medication Sig HYDROcodone-acetaminophen (XODOL) 5-300 mg per tablet Take 1 (one) tablet by mouth every 4 (four) hours as needed for pain (Days supply per fill: 1) Homepack . ondansetron (ZOFRAN) 4 MG tablet Take 1 (one) tablet (4 mg total) by mouth every 6 (six) hours as needed for nausea HOMEPACK . ondansetron (ZOFRAN) 4 MG tablet Take 1 (one) tablet (4 mg total) by mouth every 8 (eight) hours as needed for nausea . sertraline (ZOLOFT) 100 MG tablet Take 100 mg by mouth daily . ALL: Allergies Allergen Reactions Macrobid [Nitrofurantoin Monohyd/M-Cryst] Hives Nickel Sulfa (Sulfonamide Antibiotics) Hives ROS: Positives and pertinent negatives as per HPI. All other systems were reviewed and are negative. Physical Exam: Patient Vitals for the past 24 hrs: BP Temp Temp src Pulse Resp SpO2 Height Weight 07/02/20 1124 118/65 95 16 100 % 07/02/20 0827 98 F (36.7 C) Oral 07/02/20 0826 (!) 114/91 (!) 105 16 99 % 5' 3 54.4 kg (120 lb) Physical Exam Vitals signs and nursing note reviewed. Constitutional: General: She is not in acute distress. Appearance: Normal appearance. She is well-developed. She is not toxic- appearing. HENT: Head: Normocephalic and atraumatic. Nose: Nose normal. Eyes: General: No scleral icterus. Conjunctiva/sclera: Conjunctivae normal. Neck: Musculoskeletal: Neck supple. Cardiovascular: Rate and Rhythm: Regular rhythm. Tachycardia present. Heart sounds: Normal heart sounds. No murmur. Pulmonary: Effort: Pulmonary effort is normal. No respiratory distress. Breath sounds: Normal breath sounds and air entry. Abdominal: General: Abdomen is flat. Bowel sounds are normal. There is no distension. Palpations: Abdomen is soft. Tenderness: There is abdominal tenderness in the right lower quadrant. There is guarding and rebound. Positive signs include McBurney's sign and psoas sign. Musculoskeletal: Right lower leg: She exhibits no swelling. No edema. Left lower leg: She exhibits no swelling. No edema. Skin: General: Skin is warm and dry. Capillary Refill: Capillary refill takes less than 2 seconds. Findings: No rash. Neurological: General: No focal deficit present. Mental Status: She is alert and oriented to person, place, and time. Psychiatric: Behavior: Behavior normal. Behavior is cooperative. Laboratory & Radiological Imaging (if done): Labs Reviewed URINALYSIS - Abnormal; Notable for the following components: Result Value Specific [place] 1.031 (*) Blood, Urine Small (*) All other components within normal limits Narrative: Microscopic examination is performed on all urinalysis samples and only positive findings are reported. The test for blood on the chemical analytic portion of urinalysis may also be positive due to hemoglobinuria and myoglobinuria and if red blood cells are present they are quantified by microscopic examination. HCG URINE, QUALITATIVE - Abnormal; Notable for the following components: Beta-hCG, Ur, Qual Positive (*) All other components within normal limits HEPATIC FUNCTION PANEL - Abnormal; Notable for the following components: Total Protein 8.3 (*) All other components within normal limits CHEM 7 - Abnormal; Notable for the following components: Chloride 109 (*) All other components within normal limits Narrative: The eGFR should be used for monitoring renal function only and not for medication dosing. HCG, BLOOD, QUANTITATIVE - Abnormal; Notable for the following components: hCG Quant 1,073 (*) All other components within normal limits Narrative: Males and non females: <5 mIU/mL Females during : 3-4 weeks 9-130 mIU/mL 4-5 weeks 75-2600 mIU/mL 5-6 weeks 850-20,800 mIU/mL 6-7 weeks 4000-100,200 mIU/mL 7-12 weeks 11,500-289,000 mIU/mL 12-16 weeks 18,300-137,000 mIU/mL 16-29 weeks 1,400-53,000 mIU/mL 29-41 weeks 940-60,000 mIU/mL LIPASE - Normal CBC AND DIFFERENTIAL Narrative: The following orders were created for panel order CBC w/ Diff. Procedure Abnormality Status --------- ------ CBC Auto Differential[[id number]] Final result Please view results for these tests on the individual orders. ABO/RH CBC WITH AUTO DIFFERENTIAL US Obstetric Transvaginal Preliminary Result Overall findings concerning for right adnexal ectopic . 1.6 cm right adnexal mass, separate from the ovary. No definite pole or yolk sac identified. Probable left ovarian hemorrhagic cyst or corpus luteal cyst, measures up to 3.4 cm. Small amount of complex free fluid in the left adnexa suggestive of hemorrhagic products. Moderate hemorrhagic products in the endometrial cavity. Intrauterine device is centered within the fundal endometrial cavity. Critical results were called by Dr. Edyta Green to EILEEN EL on 07/02/2020 at 10:23. [employer] Workstation ID: [id number] MDM: ED Course as of Jul 02 1144 Hailee Jul 02, 2020 0835 Beta-hCG, Ur, Qual(!): Positive [RH] 0900 hCG Quant(!): 1,073 [RH] [address] Hermosillo with [place] [facility]ANK TRUCK OPERATOR - recommends I call our sand conditioner TANK TRUCK OPERATOR to see if the patient is a candidate for surgery. [facility] TANK TRUCK OPERATOR paged. [RH] 1035 ABORh: O Positive [RH] 1115 Dr. Carbajal states no surgery indicated at this time. He suggest that the patient get methotrexate, follow-up with her TANK TRUCK OPERATOR today and get serial hCGs. [RH] [address] Hermosillo to call me back. [RH] 1143 I spoke with nurse with Dr. Hermosillo's office. Unable to get patient in to office today. Office closed tomorrow as well. Patient can call next week for follow up. [RH] ED Course User Index [RH] ANAIS Mojica Dr. to call Dr. Carbajal back for further instruction. Patient remains stable. Hemodynamically stable. Chart endorsed to Dr. Rene. Clinical Impression: 1. Right ovarian without intrauterine Disposition: Patient is being discharge home. Linda Greenwood CNP ED Advanced Practice Provider [facility] Emergency Department (Please note that portions of this note have been completed with a voice recognition software. Efforts were made to correct any errors, but occasionally words are mis-transcribed.) Linda Greenwood CNP 07/02/20 1145 HPI. Patient presents to the emergency department with abdominal pain. Started yesterday, right lower quadrant, improved while standing worse while moving. Associate with nausea. No vomiting, no fevers, has had vaginal bleeding for the last 8 days, recently new IUD in April. Currently breast-feeding ROS abdominal pain, vaginal bleeding Physical Exam significantly tender to palpation in the right lower quadrant, patient winces and curls up when palpating the right lower quadrant, remainder the abdomen soft nontender MDM patient story concerning for appendicitis, given tenderness to palpation development of pain. However test came back positive, given IUD, high concern for ectopic , will get ultrasound. Beta-hCG, type and screen Patient has an ectopic . Spoke with the patients TANK TRUCK OPERATOR, DR. Hermosillo. he states that he would be unable to see this patient in his office today, and he is not willing to have the patient transferred to his nearby hospital for management of this patient, given that, consulted on-call TANK TRUCK OPERATOR here, who will evaluate the patient for treatment for ectopic Yannick Rene MD 07/02/20 1540 Patient arrives to the emergency department with c/o left abdominal pain with diarrhea that began yesterday. Patient denies fever but reports chills. Bed: 12 Expected date: Expected time: Means of arrival: Comments: NEXT PT documented in this encounter ED PROVIDER NOTE [facility] EMERGENCY DEPARTMENT NAME: Hanh Dolan AGE: 25 y.o. : 1995 VISIT DATE: 07/05/2020 CSN: [id number] PCP: Hanh Madrigal DO Chief Complaint Patient presents with Sore Throat x2days Nasal Congestion Cough This is a 25-year-old female who presents to the emergency department with 2 days of sore throat, nasal congestion, and cough. No shortness of breath or fever. Patient was recently diagnosed with ectopic and given methotrexate. She states that her abdominal pain is improving but she still has some intermittent cramping in the right side. This is not worse than previous. She denies chest pain shortness of breath or lightheadedness. Patient is scheduled tomorrow to see her TANK TRUCK OPERATOR. She does note that her son was tested positive for COVID-19 and with her symptoms she was concerned and wanted to be tested. Her TANK TRUCK OPERATOR is managing her ectopic . Past Medical History: Diagnosis Date Anemia Takes oral iron supplements Anxiety Calculus of gallbladder with acute cholecystitis 08/2019 required cholecystectomy Mastitis 09/2019 Preeclampsia Past Surgical History: Procedure Laterality Date CHOLECYSTECTOMY LAPAROSCOPIC N/A 08/27/2019 acute cholecystitis due to gallstones......Dr. Kendell Egan D & C WITH [facility] 07/2019 for placental issues post delivery LABOR WISDOM TOOTH EXTRACTION Family History Problem Relation Age of Onset Other (HTN) Mother Other (SCCA head and neck) Father Breast cancer Maternal Grandmother Lung cancer Maternal Grandfather Other (HTN) Maternal Grandfather Other (DM) Maternal Grandfather Other (Hairy cell leukemia) Paternal Grandmother Social History Socioeconomic History Marital status: Spouse name: Not on file Number of children: Not on file Years of education: Not on file Highest education level: Not on file Occupational History 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[employer] Social Needs Financial resource strain: Not on file Food insecurity Worry: Not on file Inability: Not on file Transportation needs Medical: Not on file Non-medical: Not on file Tobacco Use Smoking status: Never Smoker Smokeless tobacco: Never Used Substance and Sexual Activity Alcohol use: Yes Frequency: Never Comment: rarely Drug use: Never Sexual activity: Not on file Lifestyle Physical activity Days per week: Not on file Minutes per session: Not on file Stress: Not on file Relationships Social connections Talks on phone: Not on file Gets together: Not on file Attends quaker service: Not on file Active member of club or organization: Not on file Attends meetings of clubs or organizations: Not on file Relationship status: Not on file Other Topics Concern Not on file Social History Narrative Not on file Previous Medications Medication Sig levonorgestreL (MIRENA) 20 mcg/24 hours (6 yrs) 52 mg IUD 1 each by Intrauterine route once . sertraline (ZOLOFT) 100 MG tablet Take 100 mg by mouth daily . [DISCONTINUED] HYDROcodone-acetaminophen (XODOL) 5-300 mg per tablet Take 1 (one) tablet by mouth every 4 (four) hours as needed for pain (Days supply per fill: 1) Homepack . [DISCONTINUED] ondansetron (ZOFRAN) 4 MG tablet Take 1 (one) tablet (4 mg total) by mouth every 6 (six) hours as needed for nausea HOMEPACK . [DISCONTINUED] ondansetron (ZOFRAN) 4 MG tablet Take 1 (one) tablet (4 mg total) by mouth every 8 (eight) hours as needed for nausea . Allergies Allergen Reactions Lactose Macrobid [Nitrofurantoin Monohyd/M-Cryst] Hives Nickel Sulfa (Sulfonamide Antibiotics) Hives Review of Systems All other systems reviewed and are negative. Patient Vitals for the past 24 hrs: BP Temp Temp src Pulse Resp SpO2 Height Weight 07/05/20 0827 120/86 98.4 F (36.9 C) Skin 89 16 96 % 5' 3 54.4 kg (120 lb) Physical Exam Vitals signs and nursing note reviewed. Constitutional: Appearance: Normal appearance. HENT: Head: Normocephalic and atraumatic. Eyes: Extraocular Movements: Extraocular movements intact. Conjunctiva/sclera: Conjunctivae normal. Pulmonary: Effort: Pulmonary effort is normal. No respiratory distress. Abdominal: Tenderness: There is abdominal tenderness (Mild right lower quadrant). Musculoskeletal: General: No deformity or signs of injury. Skin: General: Skin is dry. Coloration: Skin is not jaundiced. Neurological: General: No focal deficit present. Mental Status: She is alert and oriented to person, place, and time. Psychiatric: Mood and Affect: Mood normal. Behavior: Behavior normal. Laboratory & Radiographic Imaging (if done): Results for orders placed or performed during the hospital encounter of 07/05/20 COVID-19, Molecular Specimen: Nasopharyngeal; Swab Result Value Ref Range SARS-CoV-2 Not Detected Not Detected No orders to display Procedures MDM Number of Diagnoses or Management Options Acute URI Exposure to COVID-19 virus Diagnosis management comments: Patient's COVID-19 test was negative. I have instructed the patient regarding the CDC's recommendations for self quarantine with history of exposure with symptoms. Patient notes that her TANK TRUCK OPERATOR is managing her ectopic pregnancies so I will defer additional testing or treatment given her improving abdominal pain. She understands to return immediately to the emergency department if she begins having increasing right lower quadrant abdominal pain, lightheadedness, chest pains or shortness of breath, vaginal bleeding, or any other concerning symptoms. The patient has been informed that they may have pre-hypertension or hypertension based on a blood pressure reading in the Emergency Department. I recommend that the patient call the primary care provider listed on their discharge instructions or a physician of their choice as soon as possible to arrange follow-up in the next 4 weeks for further evaluation of possible pre-hypertension or hypertension. . Clinical Impression: 1. Exposure to COVID-19 virus 2. Acute URI ED Disposition ED Disposition Condition Comment Discharge Stable Hanh Dolan discharged to home/self care in stable condition. Follow-up Information 1. Hanh Madrigal DO. Specialty: Internal Medicine [address] [place] [address] 2. Please follow up. Follow-up with your TANK TRUCK OPERATOR as scheduled Contact information for after-discharge care Follow-up information has not been specified. Discontinued Medications Disp Refills Start End HYDROcodone-acetaminophen (XODOL) 5-300 mg per tablet 4 tablet 0 08/27/2019 07/05/2020 Sig: Take 1 (one) tablet by mouth every 4 (four) hours as needed for pain (Days supply per fill: 1) Homepack . Class: Print Earliest Fill Date: 08/27/2019 Route: Oral Reason for Discontinue: Error ondansetron (ZOFRAN) 4 MG tablet 2 tablet 0 08/27/2019 07/05/2020 Sig: Take 1 (one) tablet (4 mg total) by mouth every 6 (six) hours as needed for nausea HOMEPACK . Class: Print Route: Oral Reason for Discontinue: Therapy completed ondansetron (ZOFRAN) 4 MG tablet 15 tablet 0 08/27/2019 07/05/2020 Sig: Take 1 (one) tablet (4 mg total) by mouth every 8 (eight) hours as needed for nausea . Class: Print Route: Oral Reason for Discontinue: Therapy completed Teresa Stack MD 07/05/20 8723 Presents to the ED c/o cough, congestion, and exposure to Covid 19. States her one year old son was diagnosed a few days ago. Symptoms present x 2 days. Patient currently under quarantine per CDC guidelines. States employer wants to have her tested (Health Department). documented in this encounter Kendell Egan MD - 08/27/2019 5:20 PM Cindy Skinner CNP - 08/27/2019 10:40 AM EST H&P Notes (unrecognized sect ion and content) GENERAL SURGERY H+P / CONSULT - 08/27/19 PATIENT: Hanh Dolan ROOM: OR/OR : 1995 AGE: 24 y.o. SEX: female RACE: [1] PCP: Hanh Madrigal DO REFERRAL: No ref. provider found CHART Reviewed WOOD GRINDER OPERATOR NOTE Reviewed and agree Referring Physician ER Historian Patient Quality Good Accompanied by Her Race CC I have gallbladder problems HPI Patient was seen in the pre-op holding area at 3:00 PM. She states she has had issues with her gallbladder for quite some time and in the past had a HIDA scan where she was told her gallbladder was working okay. 4 days ago she developed RUQ pain with nausea and emesis and came to the ER where she had an U/S and CT that confirmed gallstones and was discharged with PO analgesics and then she returned immediately to the ER and a repeat U/S now shows acute cholecystitis. The pain is in the RUQ, radiates to the back and up the right chest, graded a 8 / 10 at times, constant with some waxing and waning, worse with greasy foods. She diarrhea, constipation, melena, recent weight loss, chest pain, shortness of breath, or bleeding dyscrasias. REVIEW OF SYSTEMS Systems Reviewed Constitutional, Eyes, ENT/Mouth, CV, Resp, GI, , MS, Skin, Neuro, Psych, Endo, Heme/Lymph, Breasts Symptoms Reviewed Fevers, chills, fatigue, recent weight loss, double vision, cataracts, difficulty swallowing, bloody noses, high blood pressure, chest pain or angina, heart rhythm problems, difficulty breathing with exertion, blood clots, leg swelling, shortness of breath, asthma, cough, sleep apnea, nausea, vomiting, constipation, diarrhea, blood in stools, abdominal pain, appetite changes, blood in urine, painful urination, frequent urination, urine infections, incontinence, arthritis, gout, rashes, skin cancer, seizures, syncope, stroke, weakness, depression, anxiety, high or low blood sugar, thyroid problems, anemia, lymph node enlargement, bleeding problems, breast pain, nipple discharge, breast mass Pertinent Positives Abdominal pain, chills, nausea, vomiting. Pertinent Negatives PMH / PSH Past Medical History: Diagnosis Date Anemia Takes oral iron supplements Anxiety Preeclampsia Past Surgical History: Procedure Laterality Date D & C WITH LEEP 07/2019 for placental issues post delivery LABOR WISDOM TOOTH EXTRACTION OB History 2 Para 2 Term AB Living SAB TAB Ectopic Multiple Live Births FAM HX Family History Problem Relation Age of Onset Other (HTN) Mother Other (SCCA head and neck) Father Breast cancer Maternal Grandmother Lung cancer Maternal Grandfather Other (HTN) Maternal Grandfather Other (DM) Maternal Grandfather Other (Hairy cell leukemia) Paternal Grandmother SOC HX Social History Occupational History 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[employer] Tobacco Use Smoking status: Never Smoker Smokeless tobacco: Never Used Substance and Sexual Activity Alcohol use: Yes Frequency: Never Comment: rarely Drug use: Never Sexual activity: Not on file MEDICATIONS Scheduled Meds: cefoTEtan (CEFOTAN) IVPB 2,000 mg Intravenous Q12H famotidine (PEPCID) injection 20 mg Intravenous BID [AUG Hold] morphine injection 4 mg Intravenous Once [AUG Hold] ondansetron 4 mg Intravenous Once Continuous Infusions: lactated Ringers 100 mL/hr (08/27/191712) sodium chloride 0.9 % Stopped (08/27/191709) PRN Meds:.HYDROmorphone, HYDROmorphone, labetalol, Notify Anesthesiologist AND nalOXone AND naloxone, ondansetron OR ondansetron, ondansetron, prochlorperazine (COMPAZINE) injection ALLERGIES Allergies Allergen Reactions Macrobid [Nitrofurantoin Monohyd/M-Cryst] Hives Nickel Sulfa (Sulfonamide Antibiotics) Hives EXAM Vitals BP (!) 140/99 Pulse 71 Temp 97.9 F (36.6 C) Resp 16 Ht 5' 3 Wt 63.5 kg (139 lb 15.9 oz) LMP 08/23/2019 (Exact Date) SpO2 100% Yes Comment: 2 month old BMI 24.80 kg/m Obesity No Const Alert, oriented, cooperative, pleasant, NAD HEENT AT/NC, Perr, OC/OP no gross lesions Neck no thyromegaly, no masses, no bruits Cor RRR, no murmurs Lungs clear to auscultation, no wheezes or rales Abd soft, 2+ RUQ pain with positive Hughes's sign, ND, no masses, no HSM, no peritoneal signs, previous umbilical piercing Hernia no abdominal wall hernias Musc / Back no CVA tenderness Ext no LE edema, no UE or LE deformities, normal pulses all extremities Neuro CN's grossly intact, no gross deficits Psych normal affect Lymph no neck LA Skin / Other No rashes LABS Results from last 7 days Lab Units 08/27/19 0831 WBC K/mcL 10.31 HGB g/dL 11.8* HCT % 36.9 PLT K/mcL 210 SODIUM mmol/L 139 POTASSIUM mmol/L 4.3 BUN mg/dL 10 CREATININE mg/dL 0.89 GLUCOSE mg/dL 92 AST U/L 13 ALTR U/L 19 ALK PHOS U/L 85 BILIRUBIN TOTAL mg/dL 0.1 CALCIUM mg/dL 8.6 Other RADIOLOGY Images reviewed personally U/S and CTAP reports reviewed and CT images reviewed. ASSESSMENT / PLAN Gallstones and acute cholecystitis. Recommend lap choly today. Diff Dx As above. Chronic conditions Anxiety, Anemia - both clinically stable. Co-morbidities PMH/PSH Yes SH No Age No Anticoagulation NO Other Risks Explained Bleeding, Infection, Risks of Anesthesia, Injury to abdominal structures, Bile leak, retained stones. Anticipated Anesthesia General Morbidity risk (see co-morbidities above) Low Risks / Rationale / Benefits / Alternatives discussed Yes Informed consent obtained Yes Questions answered Yes ORDERS See admission orders by TELEVISION ANTENNA INSTALLER Layout [facility] SURGICAL HISTORY & PHYSICAL/CONSULTATION NOTE Acute cholecystitis Assessment & Plan Admit to obs. Plan for OR this afternoon with Dr. Egan. NPO, MIV. IV abx. Pain control. CHIEF COMPLAINT: RUQ abdominal pain HISTORY OF PRESENT ILLNESS / INJURY (HPI): [include Pain, Quality, Radiation, Severity, Duration, Timing] Mrs. Dolan is a 24 year old female with a PMH significant for preeclampsia and anxiety who presented to the [facility] ED with a four day history of abdominal pain. Work-up was concerning for acute cholecystitis. Therefore, the surgical team was consulted for further evaluation. The patient tells me that her pain began four days ago, located in her RUQ radiating to her back and chest. The pain has progressively worsened over the past four days. Exacerbated after eating food. +Nausea, vomiting and chills. Negative diarrhea or constipation. The patient presented to the ED last night. Work-up revealed gallbladder sludge and cholelithiasis. She was subsequently sent home with Vicodin. She returned this morning as the pain persisted. There is positive Hughes's sign upon exam. Mrs. Dolan does tell me that she experienced RUQ pain two years ago for which her PCP ordered a HIDA scan, that was normal at that time. Her pain eventually subsided and has not returned until four days ago. PAST MEDICAL HISTORY (PMH): Medical history: Preeclampsia, pre-term labor at 35 weeks and delivery at 37 weeks, anxiety Surgical history: Teeth extraction, D&C with leep - 7 weeks ago (retained placenta) Social history: -Place of residence (home, NSF, etc): Home with family -Tobacco use: Denies -EtOH use: Denies -Illicit drug use: Denies Family history: Mother - cervical cancer, htn; Father - , squamous cell carcinoma MEDICATIONS: Outpatient Medications as of 08/27/2019 Medication Sig HYDROcodone-acetaminophen (Vicodin) 5-300 mg per tablet Take 1 (one) tablet by mouth every 4 (four) hours as needed for pain (Days supply per fill: 2) . HYDROcodone-acetaminophen (XODOL) 5-300 mg per tablet Take 1 (one) tablet by mouth every 4 (four) hours as needed for pain (Days supply per fill: 1) Homepack . ondansetron (ZOFRAN) 4 MG tablet Take 1 (one) tablet (4 mg total) by mouth every 6 (six) hours as needed for nausea HOMEPACK . ondansetron (ZOFRAN) 4 MG tablet Take 1 (one) tablet (4 mg total) by mouth every 8 (eight) hours as needed for nausea . sertraline (ZOLOFT) 100 MG tablet Take 100 mg by mouth daily . ALLERGIES: Allergies Allergen Reactions Macrobid [Nitrofurantoin Monohyd/M-Cryst] Hives Nickel Sulfa (Sulfonamide Antibiotics) Hives REVIEW OF SYSTEMS: [List positives and pertinent negatives] Constitutional Symptoms: Negative for unexplained falls, weight loss Eyes: Negative for eye pain or vision changes Ears, Nose, Mouth, Throat: Negative for rhinorrhea, nasal pain, dysphagia, hoarseness Cardiovascular: Negative for chest pain, orthopnea, edema Respiratory: Negative for cough, shortness of breath Gastrointestinal: Positve for abdominal pain, nausea, vomiting, Negative for diarrhea Genitourinary: Negative for dysuria, hematuria Musculoskeletal: Negative for pain, joint edema Skin/Breast: Negative for rash, itching, lesions Neurological: Negative for paresthesia, paralysis, loss of bowel or bladder control, loss of consciousness Psychiatric: Negative for depression, anxiety, or suicidal ideations Endocrine: Negative for heat/cold intolerance, polydipsia, polyphagia, polyuria Hematologic/Lymphatic: Negative for anticoagulant use, antiplatelet use, family hx of clotting or bleeding disorders Allergic/Immunologic: Allergies reviewed, no use of immunosuppressants or active chemotherapy Other than the above items, the remainder of a complete review of systems is otherwise negative. [must have at least one positive or negative to validate this statement] PHYSICAL EXAM: Blood pressure 118/61, pulse 62, temperature 98.2 F (36.8 C), temperature source Oral, resp. rate 16, height 5' 3, weight 63.5 kg (140 lb), SpO2 96 %. Body mass index is 24.8 kg/m . GENERAL: Appears age appropriate. No acute distress. NEUROLOGICAL: Alert and oriented X 3. Follows commands with extremities x4, equal strength. GCS 15 CARDIOVASCULAR: Regular rate and rhythm. 2+ pulses radial/DP/PT bilaterally. RESPIRATORY: Lungs, clear to auscultation bilaterally. Respiratory effort unlabored without use of accessory muscles. ABDOMINAL: Rounded, soft, nondistended. RUQ pain, +Muprhy's sign. No guarding or peritoneal signs. GENITOURINARY: Voiding without difficulty. MUSCULOSKELETAL: Extremities atraumatic without gross deformity x4. SKIN: Skin warm and dry. Normal turgor. IMAGING STUDIES: Reviewed LABORATORY STUDIES: Lab Results Component Value Date WBC 10.31 08/27/2019 HGB 11.8 (L) 08/27/2019 HCT 36.9 08/27/2019 MCV 80.2 08/27/2019 PLT 210 08/27/2019 RBC 4.60 08/27/2019 Lab Results Component Value Date GLUCOSE 92 08/27/2019 CALCIUM 8.6 08/27/2019 NA 139 08/27/2019 K 4.3 08/27/2019 CL 110 (H) 08/27/2019 BUN 10 08/27/2019 CREATININE 0.89 08/27/2019 Lab Results Component Value Date ALT 19 08/27/2019 AST 13 08/27/2019 ALKPHOS 85 08/27/2019 BILITOT 0.1 08/27/2019 Associated attestation - Kendell Egan MD - 08/27/2019 5:19 PM EST See my separate note.documented in this encounter Quick Note - Mauri Tipton RN - 08/28/2019 8:58 AM ESTPlan of Care - Diana Martinez RN - 08/27/2019 10:07 PM ESTOp Note - Kendell Egan MD - 08/27/2019 4:10 PM EST Miscellaneous Notes (unrecog nized section and content) Patient noted to be resting in the bed with eyes open. C/O pain, refused pain medication at this time. Patient discharged at this time. POC reviewed and updated. OPERATIVE NOTE - 08/27/19 PATIENT: Hanh Dolan : 1995 AGE: 24 y.o. SEX: female RACE: [1] PCP: Hanh Madrigal DO REFERRAL: No ref. provider found Time Out Performed Yes Site Marking N/A Informed Consent Yes Referring ER Surgeon Kendell Egan MD Pre-op Dx Acute cholecystitis due to gallstones. Procedure Laparoscopic Cholecystectomy Laterality N/A Post-op Dx Same Anesthesia Assistant Mechanic Ni Terry [id number] Positioning Supine Area prepped and draped Abdomen Details of Procedure An umbilical incision was made and taken down through the subcutaneous tissues down to the fascia. The fascia was divided vertically and the peritoneal cavity entered by direct visualization. #0 Vicryl fascial stay sutures were placed and a Joel port inserted. A 30-degree laparoscope was inserted after creation of pneumoperitoneum. A 10 mm subxiphoid and two 5 mm right subcostal ports were placed with scopic visualization. All 4 quadrants of the abdominal cavity were visualized. The gallbladder was edematous. The top of the gallbladder was retracted over the edge of the liver. The medial and lateral peritoneal reflections over the [place] were dissected to reveal the cystic duct and cystic artery. These were individually ligated with Hem-o-erika clips. The gallbladder was taken off the liver with cautery. The gallbladder was removed from the abdominal cavity using an endopouch bag via the umbilical incision and sent to pathology. All ports were removed and the pneumoperitoneum evacuated. The umbilical incision fascia was closed with interrupted #0 Vicryl. The skin at all incisions was closed with #4-0 Monocryl and Exofin. Sponge / Instrument / Needle counts Good Hemostasis Good EBL 5 ml. Complications None Specimens Gallbladder and contents Wound Class 2 Sponge / Instrument / Needle Counts Correct Disposition Tolerated well. Transferred to the in stable condition. Layout PNSHETH Called ER for antibiotic, Megan will tube it up Problem: Actual or potential alteration in health Goal: Absence of healthcare acquired conditions Outcome: Partially Met Goal: Knowledge of Interdisciplinary Plan of Care Outcome: Partially Met Goal: Knowledge of Enviroment Outcome: Partially Met Problem: Pain Goal: Manage acute pain Outcome: Partially Met Goal: Manage chronic pain Outcome: Partially Met Goal: Reduced pain sensation Outcome: Partially Met Goal: Achievement of comfort function goal Outcome: Partially Met Problem: Plan for Discharge Goal: Knowledge of discharge plan and instructions Outcome: Partially Met Pt admitted for right upper ABD pain and is planned for peg later today, Called preop to tell them pt does not want demerol as she is and was advised not to get demerol. Report given to OR, they will come get pt between 145-2pm Received report Associated Problem(s): Acute cholecystitis Admit to obs. Plan for OR this afternoon with Dr. Egan. NPO, MIV. IV abx. Pain control. documented in this encounter Roberto Carbajal MD - 07/02/2020 5:17 PM EST Consult Notes (unrecognized section and content) CONSULT NOTE Patient Name: Hanh Dolan Admit Date: MR #: [id number] : 1995 Physicians: Hanh Madrigal DO (Family); No ref. provider found (referring) Assessment and Plan: This is a 25-year-old female with a right ectopic as a result of an IUD failure. Ultrasonographic findings confirm this and the physical exam is also confirmatory. The options for management were discussed with the patient at length and she opts for trial of methotrexate treatment of ectopic . She was given methotrexate 50 mg/m IM and will follow-up with me at [facility] days. Potential risk and complications and failure rates of methotrexate treatment were discussed with the patient at length and she accepted. Chief Complaint/Reason for Visit: Patient presented to [facility] emergency room complaining of right lower quadrant pain. History of Present Illness: Hanh Dolan is a 25 y.o. y/o female presenting from home with c/o right lower quadrant pain. She was evaluated with a pelvic ultrasound which was highly suggestive of a right ectopic . The patient's quantitative beta-hCG was approximately 1000. I discussed with Dr. Rene the patient was stable and could be treated as an outpatient with methotrexate and suggested that she follow-up with her TANK TRUCK OPERATOR in [place] Dr. Reyes for treatment and posttreatment care. Dr. Rene recontacted me stated that Dr. Reyes was unwilling to do this for his patient and I am therefore seeing the patient and will follow her quantitative beta-hCG's after the injection to ensure that treatment was successful. History: Past Medical History: Diagnosis Date Anemia Takes oral iron supplements Anxiety Calculus of gallbladder with acute cholecystitis 08/2019 required cholecystectomy Mastitis 09/2019 Preeclampsia Past Surgical History: Procedure Laterality Date CHOLECYSTECTOMY LAPAROSCOPIC N/A 08/27/2019 acute cholecystitis due to gallstones......Dr. Kendell Egan D & C WITH [facility] 07/2019 for placental issues post delivery LABOR WISDOM TOOTH EXTRACTION Family History Problem Relation Age of Onset Other (HTN) Mother Other (SCCA head and neck) Father Breast cancer Maternal Grandmother Lung cancer Maternal Grandfather Other (HTN) Maternal Grandfather Other (DM) Maternal Grandfather Other (Hairy cell leukemia) Paternal Grandmother Social History Socioeconomic History Marital status: Spouse name: Not on file Number of children: Not on file Years of education: Not on file Highest education level: Not on file Occupational History 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[employer] Social Needs Financial resource strain: Not on file Food insecurity Worry: Not on file Inability: Not on file Transportation needs Medical: Not on file Non-medical: Not on file Tobacco Use Smoking status: Never Smoker Smokeless tobacco: Never Used Substance and Sexual Activity Alcohol use: Yes Frequency: Never Comment: rarely Drug use: Never Sexual activity: Not on file Lifestyle Physical activity Days per week: Not on file Minutes per session: Not on file Stress: Not on file Relationships Social connections Talks on phone: Not on file Gets together: Not on file Attends quaker service: Not on file Active member of club or organization: Not on file Attends meetings of clubs or organizations: Not on file Relationship status: Not on file Other Topics Concern Not on file Social History Narrative Not on file Allergy Information: I have reviewed the patient's allergies. Macrobid [nitrofurantoin monohyd/m-cryst], Nickel, and Sulfa (sulfonamide antibiotics) Home Medications: Outpatient Medications as of 07/02/2020 Medication Sig HYDROcodone-acetaminophen (XODOL) 5-300 mg per tablet Take 1 (one) tablet by mouth every 4 (four) hours as needed for pain (Days supply per fill: 1) Homepack . ondansetron (ZOFRAN) 4 MG tablet Take 1 (one) tablet (4 mg total) by mouth every 6 (six) hours as needed for nausea HOMEPACK . ondansetron (ZOFRAN) 4 MG tablet Take 1 (one) tablet (4 mg total) by mouth every 8 (eight) hours as needed for nausea . sertraline (ZOLOFT) 100 MG tablet Take 100 mg by mouth daily . Review of Systems: The following system(s) were reviewed and pertinent findings noted: Constitutional:No fever, no weight loss Eyes:No diplopia ENT:No sinus drainage CV:No chest pain. No ankle swelling Resp:No dyspnea. No wheezing :No dysuria Neuro:No headache Integumentary:No skin rash MuscSkel:No arthralgias Endo:No polyuria Heme/lymphatic:No apparent lymphadenopathy Allergic/Immunologic:No hives Psych:No unusual mood swings Physical Examination: Vital Signs: BP 124/83 Pulse 85 Temp 98 F (36.7 C) (Oral) Resp 16 Ht 5' 3 Wt 54.4 kg (120 lb) LMP 06/30/2020 SpO2 98% BMI 21.26 kg/m BP 124/83 Pulse 85 Temp 98 F (36.7 C) (Oral) Resp 16 Ht 5' 3 Wt 54.4 kg (120 lb) LMP 06/30/2020 SpO2 98% BMI 21.26 kg/m General appearance: alert, appears stated age and cooperative Head: Normocephalic, without obvious abnormality, atraumatic Eyes: conjunctivae/corneas clear. PERRL, EOM's intact. Fundi benign. Ears: normal TM's and external ear canals both ears Nose: Nares normal. Septum midline. Mucosa normal. No drainage or sinus tenderness. Throat: lips, mucosa, and tongue normal; teeth and gums normal Neck: no adenopathy, no carotid bruit, no JVD, supple, symmetrical, trachea midline and thyroid not enlarged, symmetric, no tenderness/mass/nodules Back: symmetric, no curvature. ROM normal. No CVA tenderness. Lungs: clear to auscultation bilaterally Breasts: normal appearance, no masses or tenderness, Normal to palpation without dominant masses Heart: regular rate and rhythm, S1, S2 normal, no murmur, click, rub or gallop Abdomen: abnormal findings: The patient is tender with palpation of the right lower quadrant Pelvic: cervix normal in appearance, external genitalia normal, no cervical motion tenderness, rectovaginal septum normal, uterus normal size, shape, and consistency, vagina normal without discharge and There was moderate right adnexal tenderness on bimanual exam. Extremities: extremities normal, atraumatic, no cyanosis or edema Pulses: 2+ and symmetric Skin: Skin color, texture, turgor normal. No rashes or lesions Lymph nodes: Cervical, supraclavicular, and axillary nodes normal. Neurologic: Grossly normal Laboratory and Additional Data Reviewed: Laboratory 07/02/20 5:26 PM Radiology 07/02/20 5:26 PM documented in this encounter Goals (unrecognized section and content) Goals may be documented in a n alternate sectionGoals may be documented in an alternate sectionGoals may be documented in an alternate sectionGoals may be documented in an alternate sectionGoals may be documented in an alternate sectionGoals may be documented in an alternate sectionGoals may be documented in an alternate sectionGoals may be documented in an alternate sectionGoals may be documented in an alternate section Care Teams (unrecognized sec tion and content) Team Status: Active Member Role Status Dates Dr. Hanh Madrigal DO Family Provider Active Dr. Hanh Madrigal DO Primary Care Provider Active Team Status: Inactive Member Role Status Dates Dr. Hanh Madrigal , DO Primary Care Provider Active Dr. Alba Mar , DO Attending Provider, Referrin g Provider Active Community Health Educator Relationship Specialty Start Date End Date Hanh Madrigal DO [address] [facility] [place] [address] PCP - General 04/29/19 Hanh Madrigal DO [address] [facility] [place] [address] PCP - [place] [facility] PCP 08/03/21 Team Status: Inactive Member Role Status Dates Dr. Hanh Madrigal , DO Primary Care Provider, Refer ring Provider Active Dr. Mariely Nash , DO Attending Provider Activ e Team Status: Inactive Member Role Status Dates Dr. Hanh Madrigal , DO Primary Care Provider Active Dr. Jyothi Lacey MD Attending Provider, Referr ing Provider Active Team Status: Inactive Member Role Status Dates Dr. Hanh Madrigal , DO Primary Care Provider Active Dr. Mariely Nash , DO Attending Provider Activ e Team Status: Inactive Member Role Status Dates Dr. Hanh Madrigal , DO Primary Care Provider, Refer ring Provider Active Concepcion Kiser WOOD GRINDER OPERATOR, WOOD GRINDER OPERATOR-C Attending Provider Active Team Status: Active Member Role Status Dates Dr. Hanh Madrigal , DO Primary Care Provider Active Dr. Mariely Nash , DO Attending Provider, Refe rring Provider Active Team Status: Inactive Member Role Status Dates Dr. Mariely Nash , DO Attending Provider Activ e Team Status: Inactive Member Role Status Dates Dr. Hanh Madrigal , DO Primary Care Provider, Atten ding Provider Active Dr. Mariely Nash , DO Other Provider Active Team Status: Inactive Member Role Status Dates Dr. Hanh Madrigal , DO Primary Care Provider Active Concepcion Kiser WOOD GRINDER OPERATOR, WOOD GRINDER OPERATOR-C Attending Provider, Referring Provider Active Community Health Educator Relationship Specialty Start Date End Date Hanh Madrigal DO [address] [facility] [place] [address] PCP - General 04/29/19 Hanh Madrigal DO [address] [facility] [place] [address] PCP - [place] [facility] PCP 08/03/21 Team Status: Inactive Member Role Status Dates Dr. Hanh Madrigal , DO Primary Care Provider, Refer ring Provider Active Xiomara Garner CNM Attending Provider Active Community Health Educator Relationship Specialty Start Date End Date Hanh Madrigal DO [address] [facility] [place] [address] (Fax) PCP - General 04/29/19 Hanh Madrigal DO [address] [place] [address] PCP - [place] [facility] PCP 08/03/21 Community Health Educator Relationship Specialty Start Date End Date Hanh Madrigal DO [address] [place] [address] PCP - General 04/29/19 Hanh Madrigal DO [address] [facility] [place] [address] PCP - [place] [facility] PCP 08/03/21 Community Health Educator Relationship Specialty Start Date End Date Hanh Madrigal DO [address] [place] [address] PCP - General 04/29/19 Hanh Madrigal DO [address] [place] [address] PCP - [facility] PCP 08/03/21 Community Health Educator Relationship Specialty Start Date End Date Audi Butcher CNP [address] [facility] [place] [address] PCP - General Nurse Practitioner 09/26/24 Community Health Educator Relationship Specialty Start Date End Date Audi Butcher CNP [address] [place] [address] PCP - General Nurse Practitioner 09/26/24 Team Status: Inactive Member Role Status Dates Dr. Hanh Madrigal DO Primary Care Provider Active Start: October 25, 2024 End: October 25, 2024 Dr. Hanh Madrigal DO Referring Provider Active Start: October 25, 2024 End: October 25, 2024 Mercy Avendano CNM Attending Provider Active S tart: October 25, 2024 End: October 25, 2024 Team Status: Inactive Member Role Status Dates Dr. Hanh Madrigal DO Primary Care Provider Active Start: October 25, 2024 End: October 25, 2024 Mercy Avendano CNM Attending Provider Active S tart: October 25, 2024 End: October 25, 2024 Mercy Avendano CNM Referring Provider Active S tart: October 25, 2024 End: October 25, 2024 Team Status: Inactive Member Role Status Dates Dr. Hanh Madrigal DO Primary Care Provider Active Start: November 01, 2024 End: November 01, 2024 Mercy Avendano CNM Attending Provider Active S tart: November 01, 2024 End: November 01, 2024 Mercy Avendano CNM Referring Provider Active S tart: November 01, 2024 End: November 01, 2024 Team Status: Active Member Role Status Dates Dr. Hanh Madrigal DO Primary Care Provider Active Team Status: Inactive Member Role Status Dates Dr. Hanh Madrigal DO Primary Care Provider Active Start: November 22, 2024 End: November 22, 2024 Dr. Hanh Madrigal DO Referring Provider Active Start: November 22, 2024 End: November 22, 2024 Dr. Mariely Nash DO Attending Provider Activ e Start: November 22, 2024 End: November 22, 2024 Team Status: Inactive Member Role Status Dates Dr. Hanh Madrigal DO Primary Care Provider Active Start: November 22, 2024 End: November 22, 2024 Dr. Mariely Nash DO Attending Provider Activ e Start: November 22, 2024 End: November 22, 2024 Dr. Mariely Nash DO Referring Provider Activ e Start: November 22, 2024 End: November 22, 2024 Team Status: Inactive Member Role Status Dates Dr. Hanh Madrigal DO Primary Care Provider Active Start: December 16, 2024 End: December 16, 2024 Dr. Hanh Madrigal DO Referring Provider Active Start: December 16, 2024 End: December 16, 2024 Mercy Avendano CNM Attending Provider Active S tart: December 16, 2024 End: December 16, 2024 Team Status: Active Member Role Status Dates Dr. Hanh Madrigal DO Primary Care Provider Active Start: December 16, 2024 Mercy Avendano CNM Attending Provider Active S tart: December 16, 2024 Mercy Avendano CNM Referring Provider Active S tart: December 16, 2024 Source Comments (unrecognize d section and content) In the event this informatio n is protected by the Federal Confidentiality of Alcohol and Drug Abuse Patient Records regulations: The Federal rules restrict any use of the information to criminally investigate or prosecute any alcohol or drug abuse patient.[facility] FOR RECORDS PERTAINING TO PATIENTS WHO ARE OR HAVE BEEN ENROLLED IN A CHEMICAL DEPENDENCY/SUBSTANCEABUSE PROGRAM, SOME INFORMATION MAY BE OMITTED. This clinical summary was aggregated from multiple sources. Caution should be exercised in using it in the provision of clinical care. This summary normalizes information from multiple sources, and as a consequence, information in this document may materially change the coding, format and clinical context of patient data. In addition, data may be omitted in some cases. CLINICAL DECISIONS SHOULD BE BASED ON THE PRIMARY CLINICAL RECORDS. [facility]. provides no warranty or guarantee of the accuracy or completeness of information in this document.
[2024-12-17 15:12] LABS: Total Bilirubin 0.27 mg/dL (0.00-1.30)
== END | disposition home or self-care (01) ==
PROVIDERS: PCP Internal Medicine; Referring Provider Advanced Practice Midwife; Visit Provider Advanced Practice Midwife
DX: R74.8 Abnormal levels of other serum enzymes (principal)
CPT/HCPCS: 36415; 80053; 85025

== ENCOUNTER → 2025-03-07 | Outpatient (CLI) | payer BC, MEDICAID, SELFPAY ==
[2025-03-07 16:02] LABS: Hematocrit 35.2 % (37-47); Hemoglobin 11.9 g/dL (12.0-15.0); Immature Granulocytes Count 0.060 X10^3/uL (0.0-0.0); Mean Corp Hgb Conc 33.8 g/dL (32-36); Mean Corpuscular Volume 89.1 fL (81-99); Mean Platelet Vol. 11.8 fl (6.2-12.0); NRBC Flagged by Analyzer 0 % (0-5); Platelet Count 151 K/mm3 (150-450); RBC Distribution Width CV 12.7 % (11.6-14.6); RBC Distribution Width SD 41.7 fl (35.1-43.9); Red Blood Count 3.95 M/mm3 (4.2-5.4); White Blood Count 7.9 K/mm3 (4.4-11.0)
[2025-03-07 16:31] LABS: Glucose Challenge Gest 1H 50g 90 mg/dL (70-140); HIV Nonreactive (Nonreactive); Syphilis Antibodies Nonreactive (Nonreactive)
== END | disposition home or self-care (01) ==
PROVIDERS: Advanced Practice Midwife; PCP Internal Medicine; Visit Provider Obstetrics & Gynecology
DX: O09.92 Supervision of high risk pregnancy, unspecified, second trimester (principal); Z3A.25 25 weeks gestation of pregnancy; Z13.1 Encounter for screening for diabetes mellitus
CPT/HCPCS: 36415; 82950; 85025; 86703; 86780

== ENCOUNTER → 2025-03-20 | Outpatient (CLI) | payer BC, MEDICAID, SELFPAY ==
[2025-03-20 13:02] LABS: AST(SGOT) 17 U/L (<=31); Alanine Aminotransfer ALT/SGPT 16 U/L (<=34); Albumin, Serum 3.6 g/dL (3.5-5.0); Alkaline Phosphatase 110 U/L (35-104); Anion Gap 13 (5-15); BUN 5 mg/dL (4-19); BUN/Creat Ratio 8.7 RATIO (10-20); Calcium,Total 9.0 mg/dL (7.6-11.0); Carbon Dioxide 20.5 mmol/L (21.0-32.0); Chloride 103 mmol/L (98-108); Globulin 3.2 g/dL (2.2-4.2); Glucose 82 mg/dL (70-99); Potassium 3.7 mmol/L (3.3-5.1)
== END | disposition home or self-care (01) ==
PROVIDERS: PCP Nurse Practitioner Family; Referring Provider Advanced Practice Midwife; Visit Provider Advanced Practice Midwife
DX: R74.8 Abnormal levels of other serum enzymes (principal)
CPT/HCPCS: 36415; 80053

== ENCOUNTER 2025-04-06 18:30 | Outpatient (CLI) | payer BC, MEDICAID, SELFPAY ==
[2025-04-06] VITALS (18 sets, daily range): BP systolic 115–131; BP diastolic 80–88; PULSE 89–109; RESP 16; TEMP 37; O2SAT 96–99; BMI 31.9
--- OUTSIDE RECORDS SUMMARY | 2025-04-06 18:44 | XMS RPT_ITS | CCD ---
Author Organization [facility] Care Team Providers Care Test Puller Name Role Phone Samreen John Attending Unavailab le Longsdorf, Samreen Doe Primary Care Unavailab le Longsdorf, Samreen Doe Admitting Unavailab le Longkyorf, Samreen Doe Admitting Unavailab le Longkyorf, Samreen Doe Attending Unavailab le Polisdorf, Samreen A Primary Care Unavailab le Longkyorf, Samreen Doe Attending Unavailab le Longkyorf, Samreen A Primary Care Unavailab le Longkyorf, Samreen A Admitting Unavailab le OberHanh martinez Attending Unavailable Longsdorf, Samreen Doe Primary Care [...] L Unavailable Unavailable Unavailable Rohan, Dr. Hanh Cruz Attending Unava ilable Oberhauser, Dr. Hanh Cruz Referring Unava ilable Oberhauser, Dr. Hanh Cruz Primary Care Unava ilable Oberhauser, Dr. Hanh Cruz Attending Unava ilable Oberhauser, Dr. Hanh Cruz Referring Unava ilable Oberhauser, Dr. Hanh Cruz Primary Care Unava ilable Oberhauser, Dr. Hanh Cruz Attending Unava ilable Oberhauser, Dr. Hanh Cruz Referring Unava ilable Oberhauser, Dr. Hanh Cruz Primary Care Unava ilable Unavailable Primary Care Provider Unavailabl e LUPE, BRUNA Attending Unavailable Oberhauser Hanh REYES Primary Care Provider OberHanh martinez DO Unavailable Rohan, Dr. Simon Primary Care Provider Rohan, Dr. Simon Referring Provider Dr. Mariely Nash Attending Provider Rohan, Dr. Simon Primary Care Provider [phone] Dr. Hanh Madrigal Referring Provider [phone] Dr. Mariely Nash Attending Provider [phone] Margi ELECTRIC METER REPAIRER, ELECTRIC METER REPAIRER-Kuldip Javier Attending Provider [phone] Dr. Hanh Madrigal Primary Care Provider [phone] Dr. Hanh Madrigal Referring Provider [phone] Dr. Mariely Nash Attending Provider [phone] Margi ELECTRIC METER REPAIRER, ELECTRIC METER REPAIRER-Kuldip Javier Attending Provider [phone] Dr. Hanh Madrigal Primary Care Provider [phone] Dr. Hanh Madrigal Referring Provider [phone] Dr. Mariely Nash Attending Provider [phone] JONN Garner Attending Provider [phone] ЕКАТЕРИНА MADRIGALN Primary Care Unavailable JC RESENDIZ Attending Unavaila ble FRANCISCOHAUSSLICK, HANH L Primary Care Unavailable OBERHAUSER, HANH L Primary Care Unavailable OBERHAUSER, HANH L Primary Care Unavailable Oberhauser Hanh REYES Primary Care Provider [phone] OberhausHanh herr DO L Unavailable [phone] OBERHAUSER, HANH L Attending Unavailable OBERHAUSER, HANH L Primary Care Unavailable OBERHAUSER, HANH L Attending Unavailable OBERHAUSER, HANH L Referring Unavailable OBERHAUSER, HANH L Primary Care Unavailable THOMAE, COLT R Attending Unavailable OBERHAUSER, HANH L Primary Care Unavailable THOMAE, COLT R Attending Unavailable OBERHAUSER, HANH L Primary Care Unavailable Audi Butcher CNP Primary Care Provider [phone] Dr. Hanh Madrigal DO Primary Care Provider Dr. Hanh Madrigal DO Referring Provider [phone] Mercy Avendano CNM Attending Provider [phone] Mercy Avendano CNM Referring Provider [phone] Dr. Mariely Nash DO Attending Provider Dr. Mariely Nash DO Referring Provider REFERRED, SELF Referring Unavailable JAYY ROBLEDO Att[place] [facility] [place] Un[place] CASSY HERNANDEZ Attending Unavailable [place] [facility] [place] Unavailable REFERRED, SELF Referring Unavailable LESLY VALDEZ Attending Unavailable MARIELY SALAZAR Referring Unavailab le REFERRED, SELF Referring Unavailable JAYY ROBLEDO Attending [place]available [place] [facility] [place] Unavailable REFERRED, SELF Referring Unavailable LIYA LYONS Attending Unavailable [place] [facility] [place] Unavailable JAYY ROBLEDO Attending Unavailable [place] [facility] [place] Unavailable REFERRED, SELF Referring Unavailable Xiomara Garner CNM Attending Provider [phone] Dr. Hanh Madrigal DO Primary Care Provider Dr. Hanh Madrigal DO Referring Provider [phone] Mercy Avendano CNM Attending Provider [phone] Mercy Avendano CNM Referring Provider [phone] Dr. Jyothi Lacey MD Attending Provider [phone] Dr. Hanh Madrigal DO Primary Care Physician Dr. Mariely Nash DO Attending Physician Mercy Avendano CNM Attending Physician [phone] Xiomara Garner CNM Attending Physician [phone] Dr. Jyothi Lacey MD Attending Physician Shyam ELECTRIC METER REPAIRER-CAudi Primary Care Physician AUDI BUTCHER Attending Unavailable AUDI BUTCHER Primary Care Unavailable AUDI BUTCHER Attending Unavailable AUDI BUTCHER Primary Care Unavailable AUDI BUTCHER Primary Care Unavailable AUDI BUTCHER Attending Unavailable Audi Butcher Primary Care Unavailable Mariely Nash Referring Unavailabl e Mariely Nash Attending Unavailabl e Mariely Nash Admitting Unavailabl e Shyam, Audi L Primary Care Unavailable Mercy Avendano Attending Unavailable Mercy Avendano Referring Unavailable Mercy Avendano Referring Unavailable Mercy Avendano Attending Unavailable Oberhauser, Hanh Primary Care Unavailable Oberhauser, Hanh Primary Care Unavailable Mercy Avendano Referring Unavailable Mercy Avendano Attending Unavailable Oberhauser, Hanh Primary Care Unavailable Vande VelMariely garcia Referring Unavailabl e Vande Velde, Mariely Attending Unavailabl e Oberhauser, Hanh Primary Care Unavailable Mercy Avendano Referring Unavailable Mercy Avendano Attending Unavailable Oberhauser, Hanh Primary Care Unavailable Jyothi Lacey Attending Unavailable Oberhauser, Hanh Primary Care Unavailable Oberhauser, Hanh Referring Unavailable Vande VeldeMariely Attending Unavailabl e Oberhauser, Hanh Primary Care Unavailable Oberhauser, Hanh Referring Unavailable Mercy Avendano Attending Unavailable Oberhauser, Hanh Primary Care Unavailable Oberhauser, Hanh Referring Unavailable Jyothi Lacey Attending Unavailable Oberhauser, Hanh Referring Unavailable Mercy Avendano Attending Unavailable Oberhauser, Hanh Primary Care Unavailable Oberhauser, Hanh Primary Care Unavailable Oberhauser, Hanh Referring Unavailable Mercy Avendano Attending Unavailable Oberhauser, Hanh Primary Care Unavailable Oberhauser, Hanh Referring Unavailable Xiomara Garner Attending Unavailable Shyam, Audi L Primary Care Unavailable Mercy Avendano Attending Unavailable Oberhauser, Hanh Referring Unavailable Oberhauser, Hanh Referring Unavailable Shyam, Audi L Primary Care Unavailable Mercy Avendano Attending Unavailable Shyam, Audi L Primary Care Unavailable Mercy Avendano Attending Unavailable Mercy Avendano Referring Unavailable OberhausDr. Hanh herr DO Primary Care Physician Dr. Hanh Madrigal DO Referring Provider Allergies Allergy Classification Reported Allergen(s) Allergy Type Date of Onset Reaction(s) Facility (1 source) Lactose (non-medical use); Translations: [lactose intolerant] Propensity to adverse reactions to drug (disorder) [facility] Repository (20 sources) nickel; Translations: [Nickel] Drug Allergy 07-18-19 Unknown [facility] Repository (1 source) Sulfamethoxazole; Translations: [sulfamethoxazole] Drug Allergy [facility] Repository (18 sources) Nitrofurantoin Drug Allergy 02-12-20 19 [facility] (2 sources) Sulfonamides (Antibiotic); Translations: [SULFA ANTIBIOTICS] Propensity to adverse reactions to drug 12-12-19 18 [facility] (14 sources) NITROFURANTOIN, MACROCRYSTALS / Nitrofurantoin, Monohydrate; Translations: [NITROFURANTOIN MONOHYD/M-CRYST] Drug Allergy 08-26-19 20 [facility] (20 sources) Sulfonamides (Antibiotic); Translations: [SULFA (SULFONAMIDE ANTIBIOTICS)] Propensity to adverse reactions to drug 07-01-20 15 [facility] (18 sources) Lactose; Translations: [LACTOSE] Drug Allergy 07-05-19 21 Unknown [facility] Repository (9 sources) Sulfamethoxazole / Trimethoprim; Translations: [Sulfamethoxazole-Tr imethoprim TABS] Drug Allergy 01-24-20 23 Unknown [facility] Work Phone: (2 sources) Sulfamethoxazole / Trimethoprim; Translations: [SULFAMETHOXAZOLE-TR IMETHOPRIM] Drug Allergy 01-24-[address] [facility] Repository (1 source) Lactose (non-medical use); Translations: [LACTOSE INTOLERANCE (GI)] Propensity to adverse reactions to drug (disorder) [facility] Repository (1 source) Nitrofurantoin Drug Allergy 03-20-20 25 [facility] Repository Medications Current Medications Medication Drug Class(es) Dates Sig (Normalized) Sig (Original) aspirin 81 mg delayed release oral tablet (20 sources) Platelet Aggregation Inhibitor, Nonsteroidal Anti-inflammatory Drug Start: 10-10-2024 take 1 tablet by mouth once daily Aspirin 81 mg tablet,delayed release (DR/EC) Active 81 mg PO daily October 10, 2024 12:00am Complies with drug therapy Start: 11-15-2023 End: 12-29-2023 take 1 capsule [...] completed) Start: 10-21-2020 take 1 tablet by laysa th twice daily buPROPion HCl ER (SR) [...] resin 4000 mg powder for oral suspension (17 sources) Bile Acid Sequestrant Start: 10-10-2024 Cholestyramine (With Sugar) 4 gram powder Active NMA PO October 10, 2024 12:00am Complies with drug therapy Start: 06-03-2024 End: 09-02-2025 cholestyramine (QUESTRAN) 4 gram powder Take 0.5 (one-half) Scoopful (2 g total) by mouth 2 (two) times a day . 09/02/2024 09/02/2025 Active docosahexaenoic acid 200 mg oral capsule (20 sources) Start: 04-28-2023 End: 10-30-2023 take 1 capsule by mouth once daily Docosahexaenoic Acid ( Dha) 200 mg capsule Active 200 mg PO DAILY October 30, 2023 3:42pm Complies with drug therapy hydroxocobalamin 1 mg/ml injectable solution (5 sources) [...] 3 months 10 mL 01/24/2023 Active levonorgestrel 0.960678 mg/hr intrauterine system (1 source) Progestin, Progestin-containing Intrauterine Device levonorgestreL (MIRENA) 20 mcg/24 hours (6 yrs) 52 mg IUD 1 each by Intrauterine route once . 0 Active Mecobalamin (Vitamin B12) 10,000 mcg recon soln (11 sources) Start: Mecobalamin (Vitamin B12) 10,000 mcg recon soln Active ug IM October 10, 2024 12:00am Complies with drug therapy Start: 10-10-2024 Start: 10-10-2024 Mecobalamin (V itamin B12) 10,000 mcg recon soln Active ug IM October 10, 2024 12:00am ondansetron 4 mg disintegrating oral tablet (20 sources) Serotonin-3 Receptor Antagonist Start: 10-10-2024 take 1 tablet by mouth every six hours as needed for nausea and vomiting Ondansetron 4 mg tablet,disintegrating Active 4 mg PO EVERY 6 HOURS as needed for nausea and vomiting 90 4 October 10, 2024 12:00am Nausea and vomiting during Vomiting of , unspecified Complies with drug therapy Start: 08-27-2019 End: 07-05-2020 take 1 tablet [...] EACH PO DAILY July 01, 2015 12:00am sertraline 50 mg oral tablet (20 sources) Serotonin Reuptake Inhibitor Start: 04-04-2025 Sertraline (Zoloft) 50 mg tablet Active 75 mg PO daily 60 3 April 04, 2025 10:14am Complies with drug therapy Start: 02-14-2025 End: 04-04-2025 take 1 tablet by mouth once daily Sertraline (Zoloft) 50 mg tablet Discontinued 50 mg PO daily 60 3 February 14, 2025 12:00am April 04, 2025 10:16am Start: 07-09-2019 End: 04-28-2023 take 2 tablets by mouth once daily Sertraline 50 MG tablet Discontinued 100 mg PO DAILY 30 July 09, 2019 1:00am April 28, 2023 9:54am Start: 07-09-2019 End: 04-28-2023 take 100 mg by mouth once daily Sertraline Discontinue d 100 MG PO DAILY July 09, 2019 1:00am April 28, 2023 9:54am Start: 06-23-2019 End: 04-28-2023 take 1 tablet by mouth once daily Sertraline 50 MG tablet Discontinued 50 mg PO DAILY June 23, 2019 1:00am April 28, 2023 9:54am Check with primary doctor take 1 tablet by alysa th once daily sertraline (ZOLOFT) 100 MG tablet Take 100 mg by mouth daily . 0 Active take 1 tablet by alysa th once daily sertraline 50 MG Tab tablet Take 50 mg by mouth daily. 0 Active tiZANidine 4 mg oral tablet (2 sources) Central alpha-2 Adrenergic Agonist Start: 01-23-2023 End: 10-30-2023 take 1 tablet by mouth every six hours for muscle spasms tiZANidine (Zanaflex) 4 mg tablet Indications: Neck pain Take 1 tablet (4 mg) by mouth every 6 hours if needed for muscle spasms for up to 10 days. 30 tablet 01/23/2023 10/30/2023 Discontinued (Therapy completed) valACYclovir 500 mg oral tablet (1 source) Herpesvirus Nucleoside Analog DNA Polymerase Inhibitor, Herpes Simplex Virus Nucleoside Analog DNA Polymerase Inhibitor, Herpes Zoster Virus Nucleoside Analog DNA Polymerase Inhibitor Start: 04-04-2025 take 1 tablet by mouth once daily Valacyclovir (Valtrex) 500 mg tablet Active 500 mg PO DAILY 01 08April 04, 2025 12:00am History of herpes genitalis Personal history of other infectious and parasitic diseases Complies with drug therapy vitamin b12 1 mg/ml injectable solution (20 sources) Vitamin B12 Start: 12-06-2024 End: 12-06-2025 [...] Discontinued (Error) acyclovir 400 mg oral tablet (17 sources) Herpesvirus Nucleoside Analog DNA Polymerase Inhibitor, Herpes Simplex Virus Nucleoside Analog DNA Polymerase Inhibitor, Herpes Zoster Virus Nucleoside Analog DNA Polymerase Inhibitor Start: 07-07-2019 End: 07-08-2019 take 1 tablet by mouth twice daily Acyclovir 400 MG tablet Discontinued 1 {tbl} PO TWICE A DAY July 07, 2019 1:00am July 08, 2019 6:17am hsv calcium chloride 0.0014 meq/ml / potassium chloride [...] mg docusate sodium 100 mg oral capsule (17 sources) Start: 07-24-2015 End: 04-28-2023 take 1 capsule by mouth twice daily Docusate Sodium (Dok) 100 MG capsule Discontinued 100 mg PO TWICE A DAY 30 0 July 24, 2015 1:00am April 28, 2023 9:54am constipation 2 ml famotidine 10 mg/ml injection (3 [...] mg ferrous sulfate 325 mg oral tablet (17 sources) Start: 07-09-2019 End: 04-28-2023 take 1 tablet by mouth once daily Ferrous Sulfate 325 MG tablet Discontinued 325 mg PO DAILY 60 0 July 09, 2019 1:00am April 28, 2023 [...] route. hydrOXYzine pamoate 25 mg oral capsule (13 sources) Antihistamine Start: 06-28-2023 End: 12-29-2023 take 1 capsule by mouth three times daily as needed for headache Hydroxyzine Pamoate (Vistaril) 25 mg capsule Discontinued 25 mg PO THREE TIMES A DAY as needed for headache 20 June 28, 2023 1:00am December 29, 2023 4:23pm On Hold: Pt has been DC'd ibuprofen 600 mg oral tablet (20 sources) Nonsteroidal Anti-inflammatory Drug Start: 07-08-2019 End: 04-28-2023 take 1 tablet by mouth three times daily as needed for pain Ibuprofen 600 MG tablet Discontinued 600 mg PO THREE TIMES A DAY as needed for Pain Or Fever 30 July 08, 2019 6:17am April 28, 2023 [...] source) Nonsteroidal Anti-inflammatory Drug, Cyclooxygenase Inhibitor Start: 08-27-2019 End: 08-27-2019 ketorolac (TORADOL) injection 15 mg Magnesium (11 sources) Start: 11-15-2023 End: 12-29-2023 Magnesium tablet Discontinued 2 {tbl} PO DAILY November 15, 2023 12:00am December 29, 2023 4:23pm pregnan Start: 11-15-2023 End: 12-29-2023 Magnesium tablet Discontinue d 2 {tbl} PO DAILY November 15, 2023 12:00am December 29, 2023 4:23pm 8 ml methotrexate 25 mg/ml injection (1 source) Folate Analog Metabolic Inhibitor Start: 07-02-2020 End: 07-02-2020 methotrexate injection 78 mg 2 ml metoclopramide 5 mg/ml prefilled syringe (1 source) Dopamine-2 Receptor Antagonist Start: 02-11-2019 End: 02-11-2019 metoclopramide (REGLAN) injection 10 mg NIFEdipine 30 mg osmotic 24 hr extended release oral tablet (20 sources) Dihydropyridine Calcium Channel Natalia Start: 12-29-2023 End: 12-29-2023 take 1 tablet by mouth once daily Nifedipine (Procardia Xl) 30 mg tablet extended release 24hr Discontinued 30 mg PO DAILY December 29, 2023 12:00am December 29, 2023 5:20pm Start: 07-09-2019 End: 04-28-2023 take 1 tablet by mouth once daily Nifedipine 30 MG tablet extended release 24hr Discontinued 30 mg PO DAILY 30 0 July 09, 2019 1:00am April 28, 2023 9:54am norethindrone 0.35 mg oral tablet (13 sources) Start: 12-29-2023 End: 10-10-2024 take 1 tablet by mouth once daily Norethindrone (Contraceptive) (Pilar) 0.35 mg tablet Discontinued 0.35 mg PO DAILY 84 5 December 29, 2023 12:00am October 10, 2024 8:22am ondansetron (ZOFRAN-ODT) disintegrating tablet 4 mg (1 source) Start: 08-27-2019 End: 08-28-2019 take 1 tablet by mouth every six hours as needed ondansetron (ZOFRAN-ODT) disintegrating tablet 4 mg pantoprazole 40 mg injection (19 sources) Proton Pump Inhibitor Start: 08-27-2019 End: 08-27-2019 pantoprazole (PROTONIX) injection 40 mg Start: 07-18-2015 End: 07-07-2019 take 1 tablet by mouth once daily Pantoprazole 40 MG tablet Discontinued 40 mg PO DAILY July 18, 2015 1:00am July 07, 2019 2:14pm Pediatric Multivitamin No.49 (Flintstones Gummies) 1 EACH tablet,chewable (15 sources) Start: 07-01-2015 End: 04-28-2023 take 1 tablet by mouth once daily Pediatric Multivitamin No.49 (Flintstones Gummies) 1 EACH tablet,chewable Discontinued 1 NMA PO DAILY July 01, 2015 1:00am April 28, 2023 9:54am Check with primary doctor Start: 07-01-2015 End: 10-27-2023 take 1 tablet by mouth once daily [...] 9:54am promethazine hydrochloride 12.5 mg oral tablet (13 sources) Phenothiazine Start: 06-19-2023 End: 11-16-2023 take 1 tablet by mouth every six hours as needed for headache Promethazine 12.5 mg tablet Discontinued 12.5 mg PO EVERY 6 HOURS as needed for headache 60 0 June 19, 2023 1:00am November 16, 2023 9:28pm On Hold: Pt has been DC'd 1000 ml sodium chloride 9 mg/ml injection (5 sources) Start: 07-02-2020 End: 07-02-2020 sodium chloride 0.9% (NS) bolus 1,000 mL Start: 07-02-2020 End: 07-02-2020 sodium chloride (PF) (NS) fl ush 5 mL Start: 08-27-2019 End: 08-28-2019 take 75 mL intravenous route every hour 75 mL/hr, Intravenous, Continuous, Starting Mon08/27/19 at 1155 Start: 08-26-2019 End: 08-27-2019 sodium chloride (PF) (NS) fl ush 5 mL Start: 02-11-2019 End: 02-11-2019 sodium chloride 0.9% IV solu tion 1,000 mL zolpidem tartrate 5 mg oral tablet (17 sources) gamma-Aminobutyric Acid-ergic Agonist Start: 07-03-2019 End: 07-07-2019 take 1 tablet by mouth at bedtime as needed for sleep Zolpidem 5 MG tablet Discontinued 5 mg PO AT BEDTIME NEEDED as needed for Sleep 4 4 0 July 03, 2019 1:00am July 06, 2019 [...] [Personal history of urinary calculi] Episodic Ectopic (20 sources) Ovarian ; Translations: [Ectopic ] Onset: 5 10-10-2024 Episodic Comment on above: 06/2020 Fluid and electrolyte disorders (1 source) Mild dehydration; Translations: [Mild dehydration] Episodic Hypertension complicating ; childbirth and the puerperium (20 sources) Pre-eclampsia; Translations: [Unspecified pre-eclampsia, unspecified trimester] Onset: 4 07-09-2019 Episodic Comment on above: advised to start 81m g ASA dailyElevated ALT with NOB labs. redraw in 4 weeks advised to start 81m g ASA dailyElevated ALT with NOB labs. redraw in 4 weeks -needs 34 week US Immunizations and screening for infectious disease (1 source) Contact with or exposure to other viral diseases; Translations: [Exposure to COVID-19 virus] Episodic Malaise and fatigue (1 source) Fatigue; Translations: [Other malaise and fatigue] Episodic Nausea and vomiting (1 source) Nausea; Translations: [Nausea] Episodic Other aftercare (1 source) Surgical follow-up; Translations: [Encounter for surgical aftercare following surgery of digestive system] Episodic Other and unspecified benign neoplasm (4 sources) Lipoma (clinical); Translations: [Lipoma, unspecified site] Episodic Other complications of ; puerperium affecting management of mother (11 sources) Retained placenta; Translations: [Retained placenta without hemorrhage] 11-20-2023 Episodic Comment on above: manually removed by SM. Other complications of ; puerperium affecting management of mother (20 sources) Retained products of conception; Translations: [Retained portions of placenta and membranes, without hemorrhage] 10-10-2024 Episodic Comment on above: with 2nd , without hemorrhage, resolved with curettage Other complications of ; puerperium affecting management of mother (1 source) Retained portions of placenta and membranes, without hemorrhage; Translations: [Retained portions of placenta and membranes, without hemorrhage] Onset: Episodic Other complications of ; puerperium affecting management of mother (6 sources) Retained secundines; Translations: [Retained portions of placenta and membranes, without hemorrhage] 10-10-2024 Episodic Comment on above: with 2nd , without hemorrhage, resolved with curettage Other complications of (1 source) Vomiting of ; Translations: [Nausea and vomiting in prior to 22 weeks gestation] Episodic Other complications of (20 sources) High risk ; Translations: [Supervision of high risk , unspecified, first trimester] 04-28-2023 Episodic Comment on above: [id number], girl, Brist ol, Landon. Boyfriend-Mendoza(his first) PRR,, ANNA 05/28 PC Landon Brennan (CF carrier), Kimmie Mendoza Other complications of (15 sources) History of pre-eclampsia; Translations: [Supervision of [...] high-risk ] 04-28-2023 Episodic Other complications of (13 sources) Disease caused by 2019-nCoV; Translations: [Other viral diseases complicating , third trimester] 09-20-2023 Episodic Comment on above: already taking 81mg asa. Other complications of (12 sources) Excessive growth affecting management of mother; [...] not applicable] 10-30-2023 Episodic Other complications of (2 sources) Supervision of high risk , unspecified, unspecified trimester; Translations: [Supervision of high risk , unspecified, unspecified trimester] Onset: 5 Episodic Other complications of (1 source) Supervision of high risk , unspecified, second trimester; Translations: [Supervision of high risk , unspecified, second trimester] Onset: 5 Episodic Other female genital disorders (15 sources) History of abnormal cervical Papanicolaou smear [...] obstetric disorders] 04-28-2023 Episodic Other gastrointestinal disorders (7 sources) Non-infective diarrhea; Translations: [Other intestinal malabsorption] Onset: 4 06-03-2024 Chronic Other gastrointestinal disorders (2 sources) Other intestinal malabsorption; Translations: [Other intestinal malabsorption] Onset: 4 Chronic Other gastrointestinal disorders (7 sources) History of gastroesophageal reflux disease; Translations: [Personal history of other diseases of digestive system] Onset: 5 09-26-2024 Episodic Other infections; including parasitic (20 sources) History of sexually transmitted disease; Translations: [Personal history of other infectious and parasitic diseases] 10-25-2024 Episodic Comment on above: valtrex at 36 weeks, last outbreak 2019 Other infections; including parasitic (1 source) Personal history of other infectious and parasitic diseases; Translations: [Personal history of other infectious and parasitic diseases] Onset: 5 Episodic Other liver diseases (20 sources) Elevated liver enzymes level; Translations: [Abnormal levels of other serum enzymes] 11-01-2024 Episodic Comment on above: redraw end of October redraw end of October- W NL Other liver diseases (1 source) Abnormal levels of other serum enzymes; Translations: [Abnormal levels of other serum enzymes] Onset: 5 Episodic Other nervous system disorders (1 source) [...] gender- low r isk, male, carrier- declines NIPT w gender- low r isk, male, carrier- declines, nl anatomy Desires Stacker Operator for delivery, NIPT w gender- low risk, male, carrier- declines, nl anatomy Other screening for suspected conditions (not mental disorders or infectious disease) (20 sources) Encounter for screening for lipoid disorders; Translations: [Decreased vitamin B12 level] Onset: 4 Episodic Comment on above: vitamin B12 elevated -stop injections. redraw end of October LGSIL 09/23/16. all o thers nl. Pt's Mom total hysterectomy at 36. Pap 10/2024 nl. redraw nl Other upper respiratory infections (1 source) Acute upper respiratory infection; Translations: [Acute URI] Episodic Residual codes; unclassified (17 sources) Gestation period, 35 weeks; Translations: [35 weeks gestation of ] 07-07-2019 Episodic Residual codes; unclassified (2 sources) Gestation period, 37 weeks; Translations: [37 weeks gestation of ] 07-09-2019 Episodic Residual codes; unclassified (1 source) 30 weeks gestation of ; Translations: [30 weeks gestation of ] Onset: 5 Episodic Residual codes; unclassified (1 source) 28 weeks gestation of ; Translations: [28 weeks gestation of ] Onset: 5 Episodic Residual codes; unclassified (1 source) 25 weeks gestation of ; Translations: [25 weeks gestation of ] Onset: 5 Episodic Screening and history of mental health and substance abuse codes (4 sources) H/O: anxiety state; Translations: [Personal history of other mental disorders] Episodic Urinary tract infections (4 sources) Urinary tract infectious disease; Translations: [Urinary tract infection, site not specified] Episodic Viral infection (11 sources) Genital herpes simplex; Translations: [Herpesviral infection of urogenital system, unspecified] 11-23-2023 Chronic Comment on above: start valtrex at 36 weeks Past or Other Problems Problem Classification Problem Date Documented Da te Episodic/Chronic Biliary tract disease (10 sources) Biliary calculus; Translations: [Acute cholecystitis] Onset: 08-27-2019 08-27-2019 Episodic Mood disorders (3 sources) Mood disorders Onset: 09-26-2024 09-26-2024 Nutritional deficiencies (15 sources) Cobalamin deficiency; Translations: [Other B-complex deficiencies] Onset: 09-30-2023 05-01-2023 Episodic Other complications of (1 source) Vomiting of , unspecified; Translations: [Vomiting of , unspecified] Onset: 10-25-2024 Episodic Other gastrointestinal disorders (5 sources) Functional diarrhea; Translations: [Functional diarrhea] Onset: 06-03-2024 06-03-2024 Episodic Other gastrointestinal disorders (2 sources) Functional diarrhea; Translations: [Functional diarrhea] Onset: 06-03-2024 Episodic Residual codes; unclassified (1 source) 16 weeks gestation of ; Translations: [16 weeks gestation of ] Onset: 12-25-2024 Episodic Residual codes; unclassified (1 source) 13 weeks gestation of ; Translations: [13 weeks gestation of ] Onset: 12-19-2024 Episodic Unclassified (5 sources) Onset: 01-23-2023 01-23-2023 Results Test Name Value Interpretation Reference Range Facility L3410.9992on [facility]-24-2025 [facility] COM[facility] Normal . [facility] Comment on above: Order Comment: [id number] SERUM FZ- Bile Acids Result Comment: Test Ordered: [id number] Bile Acids, Fractionated LCMS Ursodeoxycholic Acids <0.10 umol/L ES Reference Range: . Reference Range: All Ages: <1.9 Cholic Acids 1.5 umol/L ES Reference Range: . Reference Range: All Ages: <2.2 Chenodeoxycholic Acids 1.1 umol/L ES Reference Range: . Reference Range: All Ages: <5.8 Deoxycholic Acids 1.2 umol/L ES Reference Range: . Reference Range: All Ages: <3.3 Total Bile Acids 3.8 umol/L ES Reference Range: . This test was developed and its performance characteristics determined by [facility]. It has not been cleared or approved by the Food and Drug Administration. Reference Range: All Ages: <9.2 Performed at: [facility] [address] [place] [id number] Mobile Lounge Driver Or Operator: Shane Snell MD, Phone: [phone] Performed at: [facility] [address] [id number] Mobile Lounge Driver Or Operator: Wade Pimentel PhD, Phone: [phone] Performed By: #### L 3410.9992, L500.4050 #### [facility] [address] [place], [place] [address], [address] Anion gap in Serum or Plasma Ordered By: Mercy Avendano on 03-20-2025 Anion gap [Moles/Vol] 13 mmol/L 5-15 [facility] BUN/creatinine ratioOrdered By: Mercy Avendano on 03-20-2025 Urea nitrogen/Creatinine [Mass ratio] 8.7 mg/mg Low 10-20 [facility] Bilirubin, totalOrdered By: Mercy Avendano on 03-20-2025 Bilirubin [Mass/Vol] 0.37 mg/dL 0.00-1.30 [facility] Carbon dioxide, total [Moles /volume] in Central venous bloodOrdered By: Mercy Avendano on 03-20-2025 CO2 [Moles/Vol] 20.5 mmol/L Low 21.0-32.0 [facility] Chloride assayOrdered By: Hans Avendano on 03-20-2025 Chloride [Moles/Vol] 103 mmol/L 98-108 [facility] Comprehensive Metabolic Prof ilon 03-20-2025 Albumin [Mass/Vol] 3.6 g/dL Normal 3.5-5.0 [facility] Comment on above: Performed By: #### L 3410.9992, L500.4050 #### [facility] [address] [place], [address] Albumin/Globulin [Mass ratio] 1.1 {ratio} Normal 0.9-2.4 [facility] Comment on above: Performed By: #### L 3410.9992, L500.4050 #### [facility] [address] [place], [address] ALK PHOS 110 U/L High 35-104 [facility] Comment on above: Performed By: #### L 3410.9992, L500.4050 #### [facility] [address] [place], [address] ALT [Catalytic activity/Vol] 16 U/L Normal <=34 [facility] Comment on above: Performed By: #### L 3410.9992, L500.4050 #### [facility] [address] [place], [address] AST [Catalytic activity/Vol] 17 U/L Normal <=31 [facility] Comment on above: Performed By: #### L 3410.9992, L500.4050 #### [facility] [address] [place], [address] Bilirubin [Mass/Vol] 0.37 mg/dL Normal 0.00-1.30 [facility] Comment on above: Performed By: #### L 3410.9992, [id number] #### [facility] [address] [place], [address] BUN/CRE 8.7 RATIO Low 10-20 [facility] Comment on above: Performed By: #### L 3410.9992, [id number] #### [facility] [address] [place], [address] Calcium [Mass/Vol] 9.0 mg/dL Normal 7.6-11.0 [facility] [place] Comment on above: Performed By: #### L 3410.9992, [id number] #### [facility] [address] [place], [address] Chloride [Moles/Vol] 103 mmol/L Normal 98-108 [facility] Comment on above: Performed By: #### L 3410.9992, [id number] #### [facility] [address] [place], [address] CO2 [Moles/Vol] 20.5 mmol/L Low 21.0-32.0 [facility] Comment on above: Performed By: #### L 3410.9992, [id number] #### [facility] [address] [place], [address] Creatinine [Mass/Vol] 0.57 mg/dL Low 0.70-1.20 [facility] Comment on above: Performed By: #### L 3410.9992, [id number] #### [facility] [address] [place], [address] GAP 13 Normal 5-15 [facility] Comment on above: Performed By: #### L 3410.9992, L500.4050 #### [facility] [address] [place], [address] GFR/1.73 sq M.predicted among non-blacks MDRD (S/P/Bld) [Vol rate/Area] 126 mL/min/{1.73_m2} Normal >60 [facility] Comment on above: Result Comment: mL/m in/1.73m2 CKD-EPI Creatinine Equation (2020) Performed By: #### L 3410.9992, L500.4050 #### [facility] [address] [place], [address] Globulin (S) [Mass/Vol] 3.2 g/dL Normal 2.2-4.2 [facility] Comment on above: Performed By: #### L 3410.9992, L500.4050 #### [facility] [address] [place], [address] Glucose [Mass/Vol] 82 mg/dL Normal 70-99 [facility] Comment on above: Performed By: #### L 3410.9992, L500.4050 #### [facility] [address] [place], [address] Potassium [Moles/Vol] 3.7 mmol/L Normal 3.3-5.1 [facility] Comment on above: Performed By: #### L 3410.9992, L500.4050 #### [facility] [address] [place], [address] Sodium [Moles/Vol] 137 mmol/L Normal 133-145 [facility] Comment on above: Performed By: #### L 3410.9992, L500.4050 #### [facility] [address] [place], [address] T PROT 6.7 g/dL Normal 5.9-8.4 [facility] Comment on above: Performed By: #### L 3410.9992, L500.4050 #### [facility] [address] [place], [address] Urea nitrogen [Mass/Vol] 5 mg/dL Normal 4-19 [facility] Comment on above: Performed By: #### L 3410.9992, L500.4050 #### [facility] [address] [place], [address] Glomerular filtration rate ( GFR) estimation/1.73 sq m using serum, plasma, or whole bOrdered By: Mercy Avendano on 03-20-2025 GFR/1.73 sq M.predicted among non-blacks MDRD (S/P/Bld) [Vol rate/Area] 126 mL/min/{1.73_m2} >60 [facility] Comment on above: mL/min/1.73m2 CKD-EP I Creatinine Equation (2020) Laboratory - Chemistry and C hemistry - challengeOrdered By: Mercy Avendano on 03-20-2025 AST [Catalytic activity/Vol] 17 U/L <32 [facility] Glucose Ql (U) Negative [facility] - UrinalysisOrder ed By: Mercy Avendano on 03-20-2025 Protein Ql (U) Trace [facility] 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 Office Visit Reporton 03-20-2025 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 Operator Synthesis Required: No Is patient in pain?: No Allergies nitrofurantoin (From Macrobid) Allergy (Unknown, Verified 03/20/25 09:48) Hives nickel Allergy (Verified 03/20/25 09:48) Rash Sulfa (Sulfonamide Antibiotics) Allergy (Verified 03/20/25 09:48) Hives Medications ???Medication ???Instructions ???Recorded ???Confirmed ???Type docosahexaenoic acid 200 mg 200 mg PO DAILY 10/30/23 03/20/25 History capsule ( DHA) aspirin 81 mg tablet,delayed 81 mg PO QDAY 10/10/24 03/20/25 Hi story release cholestyramine (with sugar) 4 gram ea PO 10/10/24 03/20/25 History oral powder mecobalamin (vitamin B12) 10,000 mcg IM 10/10/24 03/20/25 History mcg solution for injection ondansetron 4 mg disintegrating 4 mg PO Q6H PRN nausea and 5 03/20/25 Rx tablet vomiting #90 tabs sertraline 50 mg tablet (Zoloft) 50 mg PO QDAY #60 tabs 02/14/25 Rx Last Menstrual Period: 08/21/24 Zika: Zika virus screening: Negative : No Have you fallen in the past year?: No PFSH PFSH Medical History Preeclampsia, severe Large for dates affecting management of mother (spontaneous vaginal delivery) Retained placenta Abnormal Pap smear of cervix History of pre-term labor Retained placenta or membranes Headache Ectopic Pre-eclampsia Herpes genitalis Migraines Anemia affecting Anxiety Surgical History Bement teeth removed Hx of cholecystectomy Family History Father Squamous cell carcinoma Mother Hyperlipidemia Brother Seizures Grandmother Breast cancer Social History adopted: No household members: family and children housing: house number of children: 3 current occupational status: unemployed current occupation: [employer] pets and animals: Yes pets and animals: dog(s) history of recent travel: No Smoking Status: Never smoker alcohol intake: never substance use type: does not use caffeine: Yes what type of physical activity do you participate in: none sandra/mosque: Uatsdin seatbelt use: always do you feel safe at home: Yes 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 Date Name GA/Weeks Outcome Route Bth Weight Infant Gen Labor Lgth Anesthesia Del Locatn Provider FOB 07/24/15 [place] 39 live - full term 6lbs 9oz Female epidural [facility] Dr. Edna Brambila 07/08/19 [place] 37 live - full term 8lbs 6oz Male [facility] Dr. Edna Bethea S[place] 11/17/23 [place] 36 live - 6lbs 15oz Female [facility] [place] Delivery Date: 07/24/15 Last Updated by: Lissa Ngo No issues during or delivery Delivery Date: 07/08/19 Last Updated by: Lissa Ngo Went into pre-term labor at 36 weeks but was able to stop labor. Developed pre-eclampsia and was induced at 37 weeks. Retained placenta, curettage immediately after delivery Delivery Date: 11/17/23 Last Updated by: Lissa Ngo COVID, LGA, severe pre-e HPI 30wk 1D ob Details: HANH RM is a 29 year old who presents for routine OB visit. OB Visit ANNA Calculator Estimated Delivery Date Method Current WG Current Estimate 05/28/25 LMP (Certain) 30w 1d Expected Delivery Route/Plan Labor Preferences- CB/BF classes: [...] placed. Relevant counseling for the gestational age provide (more content not included)... Normal [facility] Potassium measurement (mass/ volume)Ordered By: Mercy Avendano on 03-20-2025 Potassium (Unsp spec) [Mass/Vol] 3.7 mmol/L 3.3-5.1 [facility] Serum creatinine measurement (mass/volume)Ordered By: Mercy Avendano on 03-20-2025 Creatinine [Mass/Vol] 0.57 mg/dL Low 0.70-1.20 [facility] Serum globulin measurementOr dered By: Mercy Avendano on 03-20-2025 Globulin (S) [Mass/Vol] 3.2 g/dL 2.2-4.2 [facility] Serum glucose measurement (m ass/volume)Ordered By: Mercy Avendano on 03-20-2025 Glucose [Mass/Vol] 82 mg/dL 70-99 [facility] Serum or plasma alanine garrett otransferase (ALT) measurementOrdered By: Mercy Avendano on 03-20-2025 ALT [Catalytic activity/Vol] 16 U/L <35 [facility] Serum or plasma albumin jennyfer urement (mass/volume)Ordered By: Mercy Avendano on 03-20-2025 Albumin [Mass/Vol] 3.6 g/dL 3.5-5.0 [facility] Serum or plasma albumin/glob ulin mass ratioOrdered By: Mercy Avendano on 03-20-2025 Albumin/Globulin [Mass ratio] 1.1 {ratio} 0.9-2.4 [facility] Serum or plasma alkaline norma sphatase measurementOrdered By: Mercy Avendano on 03-20-2025 ALP [Catalytic activity/Vol] 110 U/L High 35-104 [facility] Serum or plasma calcium jennyfer urement (mass/volume)Ordered By: Mercy Avendano on 03-20-2025 Calcium [Mass/Vol] 9.0 mg/dL 7.6-11.0 [facility] [place] Serum or plasma urea nitroge n measurement (mass/volume)Ordered By: Mercy Avendano on 03-20-2025 Urea nitrogen [Mass/Vol] 5 mg/dL 4-19 [facility] Sodium levelOrdered By: Bibiana Avendano on 03-20-2025 Sodium [Moles/Vol] 137 mmol/L 133-145 [facility] [place] Total proteinOrdered By: Dequan Avendano on 03-20-2025 Protein [Mass/Vol] 6.7 g/dL 5.9-8.4 [facility] Absolute lymphocyte countOrd ered By: Mercy Avendano on 03-07-2025 Lymphocytes Auto (Unsp spec) [#/Vol] 1.66 10*3/uL 0.83-4.51 [facility] Absolute neutrophil countOrd ered By: Mercy Sahil on 03-07-2025 Neutrophils (Bld) [#/Vol] 5.5 10*3/uL 2.0-7.7 [facility] Automated lymphocyte count a s percentage of total leukocytesOrdered By: Mercy Avendano on 03-07-2025 Lymphocytes/100 WBC Auto (Unsp spec) 21.1 % 19-41 [facility] Basophil percentageOrdered B y: Mercy Avendano on 03-07-2025 Basophils/100 WBC (Bld) 0.1 % 0-1 [facility] CBC W/Diff, Automatedon -2024 Absolute Lymph 1.66 X10 3/uL Normal 0.83-4.51 [facility] Comment on above: Performed By: #### L 3410.9992, L500.4050 #### [facility] [address] [place], [address] Absolute Neut 5.5 X10 3/uL Normal 2.0-7.7 [facility] Comment on above: Performed By: #### L 3410.9992, L500.4050 #### [facility] [address] [place], [address] Basophils/100 WBC (Bld) 0.1 % Normal 0-1 [facility] Comment on above: Performed By: #### L 3410.9992, L500.4050 #### [facility] [address] [place], [address] Eosinophils/100 WBC (Bld) 1.6 % Normal 0-5 [facility] Comment on above: Performed By: #### L 3410.9992, L500.4050 #### [facility] [address] [place], [address] Erythrocyte distribution width (RBC) [Ratio] 12.7 % Normal 11.6-14.6 [facility] Comment on above: Performed By: #### L 3410.9992, L500.4050 #### [facility] [address] [place], [address] Hematocrit (Bld) [Volume fraction] 35.2 % Low 37-47 [facility] Comment on above: Performed By: #### L 3410.9992, L500.4050 #### [facility] [address] [place], [address] Hemoglobin (Bld) [Mass/Vol] 11.9 g/dL Low 12.0-15.0 [facility] Comment on above: Performed By: #### L 3410.9992, L500.4050 #### [facility] [address] [place], [address] IG% 0.800 Normal 0.0-0.9 [facility] Comment on above: Result Comment: IG% - Immature Granulocytes (promyelocytes, myelocytes and metamyelocytes) > 1% indicates that a LEFT SHIFT is Present. Performed By: #### L 3410.9992, L500.4050 #### [facility] [address] [place], [address] Lymphocytes/100 WBC (Bld) 21.1 % Normal 19-41 [facility] Comment on above: Performed By: #### L 3410.9992, L500.4050 #### [facility] [address] [place], [address] MCH (RBC) [Entitic mass] 30.1 pg Normal 27.0-32.0 [facility] Comment on above: Performed By: #### L 3410.9992, L500.4050 #### [facility] [address] [place], [address] MCHC (RBC) [Mass/Vol] 33.8 g/dL Normal 32-36 [facility] Comment on above: Performed By: #### L 3410.9992, L500.4050 #### [facility] [address] [place], [address] MCV (RBC) [Entitic vol] 89.1 fL Normal 81-99 [facility] Comment on above: Performed By: #### L 3410.9992, L500.4050 #### [facility] [address] [place], [address] Monocytes/100 WBC (Bld) 6.9 % Normal 0-10 [facility] Comment on above: Performed By: #### L 3410.9992, L500.4050 #### [facility] [address] [place], [address] Neutrophils/100 WBC (Bld) 69.5 % Normal 47-70 [facility] Comment on above: Performed By: #### L 3410.9992, L500.4050 #### [facility] [address] [place], [address] Nucleated RBC (Bld) [#/Vol] 0 10*3/uL Normal 0-5 [facility] Comment on above: Performed By: #### L 3410.9992, L500.4050 #### [facility] [address] [place], [address] Platelet mean volume (Bld) [Entitic vol] 11.8 fL Normal 6.2-12.0 [facility] Comment on above: Performed By: #### L 3410.9992, L500.4050 #### [facility] [address] [place], [address] Platelets (Bld) [#/Vol] 151 10*3/uL Normal 150-450 [facility] Comment on above: Performed By: #### L 3410.9992, L500.4050 #### [facility] [address] [place], [address] RBC (Bld) [#/Vol] 3.95 10*6/uL Low 4.2-5.4 [facility] Comment on above: Performed By: #### L 3410.9992, L500.4050 #### [facility] [address] [place], [address] RDW SD 41.7 fl Normal 35.1-43.9 [facility] Comment on above: Performed By: #### L 3410.9992, L500.4050 #### [facility] [address] [place], [address] WBC (Bld) [#/Vol] 7.9 10*3/uL Normal 4.4-11.0 [facility] Comment on above: Performed By: #### L 3410.9992, L500.4050 #### [facility] [address] [place], [address] Eosinophil percentageOrdered By: Mercy Avendano on 03-07-2025 Eosinophils/100 WBC (Bld) 1.6 % 0-5 [facility] Erythrocyte distribution wid th ratioOrdered By: Mercy Avendano on 03-07-2025 Erythrocyte distribution width (RBC) [Ratio] 12.7 % 11.6-14.6 [facility] Erythrocyte distribution wid th standard deviationOrdered By: Mercy Avendano on 03-07-2025 Erythrocyte distribution width (RBC) [Ratio] 41.7 fl 35.1-43.9 [facility] Glucose Challenge Gest 1H 50 karoline 03-07-2025 GLU GEST 50g 1H 90 mg/dL Normal 70-140 [facility] Comment on above: Performed By: #### L 3410.9992, L500.4050 #### [facility] [address] [place], [address] Glucose measurement at 2 dexter rs post-dose gestational glucose tolerance testOrdered By: Mercy Avendano on 03-07-2025 Glucose [Mass/Vol] 90 mg/dL 70-140 [facility] HIVon 03-07-2025 HIV Non-Reactive Normal Nonreactive [facility] Comment on above: Result Comment: Non- Reactive Reactive Repeatedly reactive samples must be confirmed according to CDC recommended confirmatory algorithms. The subresults for either HIVAG or AHIV can be used as an aid in the selection of the confirmation algorithm for reactive samples. Send out specimens with Reactive results to [facility] for confirmation. Order the HIV antibody detection and differentiation: lc#[id number] Performed By: #### L 3410.9992, L500.4050 #### [facility] [address] [place], [place], [id number] Hematocrit Auto (Bld) [Volum e fraction]Ordered By: Mercy Avendano on 03-07-2025 Hematocrit (Bld) [Volume fraction] 35.2 % Low 37-47 [facility] Hemoglobin measurementOrdere d By: Mercy Avendano on 03-07-2025 Hemoglobin (Bld) [Mass/Vol] 11.9 g/dL Low 12.0-15.0 [facility] Immature granulocytes/100 WB C Auto (Bld)Ordered By: Mercy Avendano on 03-07-2025 Immature granulocytes/100 WBC (Bld) 0.800 % 0.0-0.9 [facility] Comment on above: IG% - Immature Granu locytes (promyelocytes, myelocytes and metamyelocytes) > 1% indicates that a LEFT SHIFT is Present. Laboratory - Chemistry and C hemistry - challengeOrdered By: Jyothi Lacey on 03-07-2025 Glucose Ql (U) Negative [facility] - UrinalysisOrder ed By: Jyothi Lacey on 03-07-2025 Protein Ql (U) Negative [facility] MCV (mean corpuscular volume ) determinationOrdered By: Mercy Avendano on 03-07-2025 MCV (RBC) [Entitic vol] 89.1 fL 81-99 [facility] Mean corpuscular hemoglobin (MCH) determinationOrdered By: Mercy Avendano on 03-07-2025 MCH (RBC) [Entitic mass] 30.1 pg 27.0-32.0 [facility] Mean corpuscular hemoglobin concentration (MCHC) determinationOrdered By: Mercy Avendano on 03-07-2025 MCHC (RBC) [Mass/Vol] 33.8 g/dL 32-36 [facility] Mean platelet volume determi nationOrdered By: Mercy Avendano on 03-07-2025 Platelet mean volume (Bld) [Entitic vol] 11.8 fL 6.2-12.0 [facility] Monocyte percentageOrdered B y: Mercy Avendano on 03-07-2025 Monocytes/100 WBC (Bld) 6.9 % 0-10 [facility] Neutrophil percentageOrdered By: Mercy Avendano on 03-07-2025 Neutrophils/100 WBC (Bld) 69.5 % 47-70 [facility] No Panel InformationOrdered By: Mercy Avendano on 03-07-2025 HIV (1&2) Antibody Non-Reactive Nonreactive [facility] Comment on above: Non-ReactiveReactive Repeatedly reactive samples must be confirmed according to CDC recommended confirmatory algorithms. 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, [address] [place] [address] OFFICE VISIT Date of Service: 03/07/25 MR#: [id number] Acct: [id number] Name: HANH RM Rep #: [id number] : 1995 Provider: Dr. Jyothi nogueira MD Age/Sex: 29/F Location: [facility] Status: Signed Intake Vital Signs 01/17/25 10:06 02/14/25 11:28 03/07/25 14:49 Height 5 ft 3 in 5 ft 3 in 5 ft 3 in Weight: 176 lb 2 oz BMI 31.1 BP 109/73 Intake Visit Reasons: 28wk ob/glucose Chief Operator Synthesis Required: No Is patient in pain?: No Allergies nitrofurantoin (From Macrobid) Allergy (Unknown, Verified 03/07/25 14:49) Hives nickel Allergy (Verified 03/07/25 14:49) Rash Sulfa (Sulfonamide Antibiotics) Allergy (Verified 03/07/25 14:49) Hives Medications ???Medication ???Instructions ???Recorded ???Confirmed ???Type docosahexaenoic acid 200 mg 200 mg PO DAILY 10/30/23 03/07/25 History capsule ( DHA) aspirin 81 mg tablet,delayed 81 mg PO QDAY 10/10/24 03/07/25 Hi story release cholestyramine (with sugar) 4 gram ea PO 10/10/24 03/07/25 History oral powder mecobalamin (vitamin B12) 10,000 mcg IM 10/10/24 03/07/25 History mcg solution for injection ondansetron 4 mg disintegrating 4 mg PO Q6H PRN nausea and 5 03/07/25 Rx tablet vomiting #90 tabs sertraline 50 mg tablet (Zoloft) 50 mg PO QDAY #60 tabs 02/14/25 Rx Last Menstrual Period: 08/21/24 Zika: Zika virus screening: Negative : No PFSH PFSH Medical History Preeclampsia, severe Large for dates affecting management of mother (spontaneous vaginal delivery) Retained placenta Abnormal Pap smear of cervix History of pre-term labor Retained placenta or membranes Headache Ectopic Pre-eclampsia Herpes genitalis Migraines Anemia affecting Anxiety Surgical History Bement teeth removed Hx of cholecystectomy Family History Father Squamous cell carcinoma Mother Hyperlipidemia Brother Seizures Grandmother Breast cancer Social History adopted: No household members: family and children housing: house number of children: 3 current occupational status: unemployed current occupation: [employer] pets and animals: Yes pets and animals: dog(s) history of recent travel: No Smoking Status: Never smoker alcohol intake: never substance use type: does not use caffeine: Yes what type of physical activity do you participate in: none sandra/mosque: Uatsdin seatbelt use: always do you feel safe at home: Yes 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 Date Name GA/Weeks Outcome Route Bth Weight Gen Labor Lgth Anesthesia Del Locatn Provider FOB 07/24/15 [place] 39 live - full term 6lbs 9oz Female epidural [facility] Dr. Edna Brambila 07/08/19 [place] 37 live - full term 8lbs 6oz Male [facility] Dr. Edna Bethea Sven 11/17/23 [place] 36 live - 6lbs 15oz Female [facility] [place] Delivery Date: 07/24/15 Last Updated by: Lissa Ngo No issues during or delivery Delivery Date: 07/08/19 Last Updated by: Lissa Ngo Went into pre-term labor at 36 weeks but was able to stop labor. Developed pre-eclampsia and was induced at 37 weeks. Retained placenta, curettage immediately after delivery Delivery Date: 11/17/23 Last Updated by: Lissa Ngo COVID, LGA, severe pre-e HPI 28wk ob/glucose Details: HANH RM is a 29 year old who presents for routine OB visit. OB Visit ANNA Calculator Estimated Delivery Date Method Current WG Current Estimate 05/28/25 LMP (Certain) 28w 2d Expected Delivery Route/Plan Labor Preferences- CB/BF [...] routine care and follow up unless otherwise n (more content not included)... Normal [facility] Platelet countOrdered By: Hans Avendano on 03-07-2025 Platelets (Bld) [#/Vol] 151 10*3/uL 150-450 [facility] RBC Auto (Bld) [#/Vol]Ordere d By: Mercy Avendano on 03-07-2025 RBC (Bld) [#/Vol] 3.95 10*6/uL Low 4.2-5.4 [facility] Syphilis Antibodieson 2024 Syphilis Abs Non-Reactive Normal Nonreactive [facility] Comment on above: Performed By: #### L 3410.9992, L500.4050 #### [facility] [address] [place], [address] White blood cell (WBC) count Ordered By: Mercy Avendano on 03-07-2025 WBC (Bld) [#/Vol] 7.9 10*3/uL 4.4-11.0 [facility] Laboratory - Chemistry and C hemistry - challengeOrdered By: Mrecy Avendano on 02-14-2025 Glucose Ql (U) Negative [facility] - UrinalysisOrder ed By: Mercy Avendano on 02-14-2025 Protein Ql (U) Negative [facility] 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 Office Visit Reporton 02-14-2025 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 [address], [address] [place] [address] OFFICE VISIT Date of Service: 02/14/25 MR#: [id number] Acct: [id number] Name: HANH RM Rep #: [id number] : 1995 Provider: JONN Cox ams Age/Sex: 29/F Location: [facility] Status: Signed Intake Vital Signs 11/22/24 13:34 01/17/25 10:06 02/14/25 11:28 Height 5 ft 3 in 5 ft 3 in 5 ft 3 in Weight: 166 lb 6 oz BMI 29.5 BP 116/83 H Intake Visit Reasons: 25 wk ob Chief Complaint: 25wk OB Chief Operator Synthesis Required: No Is patient in pain?: No Allergies nitrofurantoin (From Macrobid) Allergy (Unknown, Verified 02/14/25 11:24) Hives nickel Allergy (Verified 02/14/25 11:24) Rash Sulfa (Sulfonamide Antibiotics) Allergy (Verified 02/14/25 11:24) Hives Medications ???Medication ???Instructions ???Recorded ???Confirmed ???Type docosahexaenoic acid 200 mg 200 mg PO DAILY 10/30/23 02/14/25 History capsule ( DHA) aspirin 81 mg tablet,delayed 81 mg PO QDAY 10/10/24 02/14/25 Hi story release cholestyramine (with sugar) 4 gram ea PO 10/10/24 02/14/25 History oral powder mecobalamin (vitamin B12) 10,000 mcg IM 10/10/24 02/14/25 History mcg solution for injection ondansetron 4 mg disintegrating 4 mg PO Q6H PRN nausea and 5 02/14/25 Rx tablet vomiting #90 tabs sertraline 50 mg tablet (Zoloft) 50 mg PO QDAY #60 tabs 02/14/25 Rx Last Menstrual Period: 08/21/24 : No PFSH PFSH Medical History Preeclampsia, severe Large for dates affecting management of mother (spontaneous vaginal delivery) Retained placenta Abnormal Pap smear of cervix History of pre-term labor Retained placenta or membranes Headache Ectopic Pre-eclampsia Herpes genitalis Migraines Anemia affecting Anxiety Surgical History Bement teeth removed Hx of cholecystectomy Family History Father Squamous cell carcinoma Mother Hyperlipidemia Brother Seizures Grandmother Breast cancer Social History adopted: No household members: family and children housing: house number of children: 3 current occupational status: unemployed current occupation: [employer] pets and animals: Yes pets and animals: dog(s) history of recent travel: No Smoking Status: Never smoker alcohol intake: never substance use type: does not use caffeine: Yes what type of physical activity do you participate in: none sandra/mosque: Uatsdin seatbelt use: always do you feel safe at home: Yes 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 Date Name GA/Weeks Outcome Route Bth Weight Infant Gen Labor Lgth Anesthesia Del Locatn Provider FOB 07/24/15 [place] 39 live - full term 6lbs 9oz Female epidural [facility] Dr. Edna Brambila 07/08/19 [place] 37 live - full term 8lbs 6oz Male [facility] Dr. Edna Machuca 11/17/23 [place] 36 live - 6lbs 15oz Female [facility] [place] Delivery Date: 07/24/15 Last Updated by: Lissa Ngo No issues during or delivery Delivery Date: 07/08/19 Last Updated by: Lissa Ngo Went into pre-term labor at 36 weeks but was able to stop labor. Developed pre-eclampsia and was induced at 37 weeks. Retained placenta, curettage immediately after delivery Delivery Date: 11/17/23 Last Updated by: Lissa Ngo COVID, LGA, severe pre-e HPI 25 wk ob Details: HANH RM is a 29 year old who presents for routine OB visit. OB Visit ANNA Calculator Estimated Delivery Date Method Current WG Current Estimate 05/28/25 LMP (Certain) 25w 2d Expected Delivery Route/Plan Labor Preferences- CB/BF [...] otherwise noted in visit notes/problem list details (more content not included)... Normal [facility] - Chemistry and C hemistry - challengeOrdered By: Xiomara Garner on 01-17-2025 Glucose Ql (U) Negative [facility] - UrinalysisOrder ed By: Xiomara Garner on 01-17-2025 Protein Ql (U) Trace [facility] 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 Office Visit Reporton 01-17-2025 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 Office Visit Report [facility] [address], [address] [place] [address] OFFICE VISIT Date of Service: 01/17/25 MR#: [id number] Acct: [id number] Name: HANH RM Rep #: [id number] : 1995 Provider: JONN fox Age/Sex: 29/F Location: [facility] [place] Status: Signed Intake Vital Signs 11/22/24 13:34 12/16/24 13:25 01/17/25 10:06 Height 5 ft 3 in 5 ft 3 in 5 ft 3 in Weight: 157 lb 162 lb BMI 27.8 28.7 BP 119/80 119/76 Intake Visit Reasons: 21 wk ob Chief Operator Synthesis Required: No Is patient in pain?: No Allergies nitrofurantoin (From Macrobid) Allergy (Unknown, Verified 01/17/25 10:07) Hives nickel Allergy (Verified 01/17/25 10:07) Rash Sulfa (Sulfonamide Antibiotics) Allergy (Verified 01/17/25 10:07) Hives Medications ???Medication ???Instructions ???Recorded ???Confirmed ???Type docosahexaenoic acid 200 mg 200 mg PO DAILY 10/30/23 01/17/25 History capsule ( DHA) aspirin 81 mg tablet,delayed 81 mg PO QDAY 10/10/24 01/17/25 Hi story release cholestyramine (with sugar) 4 gram ea PO 10/10/24 01/17/25 History oral powder mecobalamin (vitamin B12) 10,000 mcg IM 10/10/24 01/17/25 History mcg solution for injection ondansetron 4 mg disintegrating 4 mg PO Q6H PRN nausea and 5 01/17/25 Rx tablet vomiting #90 tabs Last Menstrual Period: 08/21/24 Zika: Zika virus screening: Negative : No Have you fallen in the past year?: No PFSH PFSH Medical History Preeclampsia, severe Large for dates affecting management of mother (spontaneous vaginal delivery) Retained placenta Abnormal Pap smear of cervix History of pre-term labor Retained placenta or membranes Headache Ectopic Pre-eclampsia Herpes genitalis Migraines Anemia affecting Anxiety Surgical History Bement teeth removed Hx of cholecystectomy Family History Father Squamous cell carcinoma Mother Hyperlipidemia Brother Seizures Grandmother Breast cancer Social History adopted: No household members: family and children housing: house number of children: 3 current occupational status: unemployed current occupation: [employer] pets and animals: Yes pets and animals: dog(s) history of recent travel: No Smoking Status: Never smoker alcohol intake: never substance use type: does not use caffeine: Yes what type of physical activity do you participate in: none sandra/mosque: Uatsdin seatbelt use: always do you feel safe at home: Yes 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 Date Name GA/Weeks Outcome Route Bth Weight Infant Gen Labor Lgth Anesthesia Del Locatn Provider FOB 07/24/15 [place] 39 live - full term 6lbs 9oz Female epidural [facility] Dr. Edna Brambila 07/08/19 [place] 37 live - full term 8lbs 6oz Male [facility] Dr. Edna Bethea Sven 11/17/23 [place] 36 live - 6lbs 15oz Female [facility] [place] Delivery Date: 07/24/15 Last Updated by: Lissa Ngo No issues during or delivery Delivery Date: 07/08/19 Last Updated by: Lissa Ngo Went into pre-term labor at 36 weeks but was able to stop labor. Developed pre-eclampsia and was induced at 37 weeks. Retained placenta, curettage immediately after delivery Delivery Date: 11/17/23 Last Updated by: Lissa Ngo COVID, LGA, severe pre-e HPI 21 wk ob Details: HANH RM is a 29 year old who presents for routine OB visit. OB Visit ANNA Calculator Estimated Delivery Date Method Current WG Current Estimate 05/28/25 LMP (Certain) 21w 2d Expected Delivery Route/Plan Labor Preferences- CB/BF [...] noted in visit notes/problem list details Initial We (more content not included)... Normal [facility] Comprehensive Metabolic Prof danielle 12-17-2024 Bilirubin [Mass/Vol] 0.27 mg/dL Normal 0.00-1.30 [facility] Comment on above: Performed By: #### L 500.4050, L100.0100 #### [facility] [address] [place], [place], [address] Absolute lymphocyte countOrd ered By: Mercy Avendano on 12-16-2024 Lymphocytes Auto (Unsp spec) [#/Vol] 2.03 10*3/uL 0.83-4.51 [facility] Absolute neutrophil countOrd ered By: Mercy Avendano on 12-16-2024 Neutrophils (Bld) [#/Vol] 5.7 10*3/uL 2.0-7.7 [facility] Anion gap in Serum or Plasma Ordered By: Mercy Avendano on 12-16-2024 Anion gap [Moles/Vol] 12 mmol/L 5-15 [facility] Automated lymphocyte count a s percentage of total leukocytesOrdered By: Mercy Avendano on 12-16-2024 Lymphocytes/100 WBC Auto (Unsp spec) 24.3 % 19-41 [facility] BUN/creatinine ratioOrdered By: Mercy Avendano on 12-16-2024 Urea nitrogen/Creatinine [Mass ratio] 14.9 mg/mg 10-20 [facility] Basophil percentageOrdered B y: Mercy Avendano on 12-16-2024 Basophils/100 WBC (Bld) 0.2 % 0-1 [facility] Bilirubin, totalOrdered By: Mercy Avendano on 12-16-2024 Bilirubin [Mass/Vol] 0.27 mg/dL 0.00-1.30 [facility] CBC W/Diff, Automatedon 12-01 Absolute Lymph 2.03 X10 3/uL Normal 0.83-4.51 [facility] Comment on above: Performed By: #### L 500.4050, L100.0100 #### [facility] [address] [place], [address] Absolute Neut 5.7 X10 3/uL Normal 2.0-7.7 [facility] Comment on above: Performed By: #### L 500.4050, L100.0100 #### [facility] [address] [place], [address] Basophils/100 WBC (Bld) 0.2 % Normal 0-1 [facility] Comment on above: Performed By: #### L 500.4050, L100.0100 #### [facility] [address] [place], [address] Eosinophils/100 WBC (Bld) 1.3 % Normal 0-5 [facility] Comment on above: Performed By: #### L 500.4050, L100.0100 #### [facility] [address] [place], [address] Erythrocyte distribution width (RBC) [Ratio] 13.3 % Normal 11.6-14.6 [facility] Comment on above: Performed By: #### L 500.4050, L100.0100 #### [facility] [address] [place], [address] Hematocrit (Bld) [Volume fraction] 38.5 % Normal 37-47 [facility] Comment on above: Performed By: #### L 500.4050, L100.0100 #### [facility] [address] [place], [address] Hemoglobin (Bld) [Mass/Vol] 12.9 g/dL Normal 12.0-15.0 [facility] Comment on above: Performed By: #### L 500.4050, L100.0100 #### [facility] [address] [place], [address] IG% 0.500 Normal 0.0-0.9 [facility] Comment on above: Result Comment: IG% - Immature Granulocytes (promyelocytes, myelocytes and metamyelocytes) > 1% indicates that a LEFT SHIFT is Present. Performed By: #### L 500.4050, L100.0100 #### [facility] [address] [place], [address] Lymphocytes/100 WBC (Bld) 24.3 % Normal 19-41 [facility] Comment on above: Performed By: #### L 500.4050, L100.0100 #### [facility] [address] [place], [address] MCH (RBC) [Entitic mass] 29.6 pg Normal 27.0-32.0 [facility] Comment on above: Performed By: #### L 500.4050, L100.0100 #### [facility] [address] [place], [address] MCHC (RBC) [Mass/Vol] 33.5 g/dL Normal 32-36 [facility] Comment on above: Performed By: #### L 500.4050, L100.0100 #### [facility] [address] [place], [address] MCV (RBC) [Entitic vol] 88.3 fL Normal 81-99 [facility] Comment on above: Performed By: #### L 500.4050, L100.0100 #### [facility] [address] [place], [address] Monocytes/100 WBC (Bld) 5.8 % Normal 0-10 [facility] Comment on above: Performed By: #### L 500.4050, L100.0100 #### [facility] [address] [place], [address] Neutrophils/100 WBC (Bld) 67.9 % Normal 47-70 [facility] Comment on above: Performed By: #### L 500.4050, L100.0100 #### [facility] [address] [place], [address] Nucleated RBC (Bld) [#/Vol] 0 10*3/uL Normal 0-5 [facility] Comment on above: Performed By: #### L 500.4050, L100.0100 #### [facility] [address] [place], [address] Platelet mean volume (Bld) [Entitic vol] 11.8 fL Normal 6.2-12.0 [facility] Comment on above: Performed By: #### L 500.4050, L100.0100 #### [facility] [address] [place], [address] Platelets (Bld) [#/Vol] 188 10*3/uL Normal 150-450 [facility] Comment on above: Performed By: #### L 500.4050, L100.0100 #### [facility] [address] [place], [address] RBC (Bld) [#/Vol] 4.36 10*6/uL Normal 4.2-5.4 [facility] Comment on above: Performed By: #### L 500.4050, L100.0100 #### [facility] [address] [place], [address] RDW SD 42.9 fl Normal 35.1-43.9 [facility] Comment on above: Performed By: #### L 500.4050, L100.0100 #### [facility] [address] [place], [address] WBC (Bld) [#/Vol] 8.3 10*3/uL Normal 4.4-11.0 [facility] Comment on above: Performed By: #### L 500.4050, L100.0100 #### [facility] [address] [place], [address] Carbon dioxide, total [Moles /volume] in Central venous bloodOrdered By: Mercy Avendano on 12-16-2024 CO2 [Moles/Vol] 22.7 mmol/L 21.0-32.0 [facility] Chloride assayOrdered By: Hans Avendano on 12-16-2024 Chloride [Moles/Vol] 102 mmol/L 98-108 [facility] Eosinophil percentageOrdered By: Mercy Avendano on 12-16-2024 Eosinophils/100 WBC (Bld) 1.3 % 0-5 [facility] Erythrocyte distribution wid th ratioOrdered By: Mercy Avendano on 12-16-2024 Erythrocyte distribution width (RBC) [Ratio] 13.3 % 11.6-14.6 [facility] Erythrocyte distribution wid th standard deviationOrdered By: Mercy Avendano on 12-16-2024 Erythrocyte distribution width (RBC) [Ratio] 42.9 fl 35.1-43.9 [facility] Glomerular filtration rate ( GFR) estimation/1.73 sq m using serum, plasma, or whole bOrdered By: Mercy Avendano on 12-16-2024 GFR/1.73 sq M.predicted among non-blacks MDRD (S/P/Bld) [Vol rate/Area] 126 mL/min/{1.73_m2} >60 [facility] Comment on above: mL/min/1.73m2 CKD-EP I Creatinine Equation (2020) Hematocrit Auto (Bld) [Volum e fraction]Ordered By: Mercy Avendano on 12-16-2024 Hematocrit (Bld) [Volume fraction] 38.5 % 37-47 [facility] Hemoglobin measurementOrdere d By: Mercy Aevndano on 12-16-2024 Hemoglobin (Bld) [Mass/Vol] 12.9 g/dL 12.0-15.0 [facility] Immature granulocytes/100 WB C Auto (Bld)Ordered By: Mercy Avendano on 12-16-2024 Immature granulocytes/100 WBC (Bld) 0.500 % 0.0-0.9 [facility] Comment on above: IG% - Immature Granu locytes (promyelocytes, myelocytes and metamyelocytes) > 1% indicates that a LEFT SHIFT is Present. Laboratory - Chemistry and C hemistry - challengeOrdered By: Mercy Avendano on 12-16-2024 AST [Catalytic activity/Vol] 18 U/L <32 [facility] Glucose Ql (U) Negative [facility] - UrinalysisOrder ed By: Mercy Avendano on 12-16-2024 Protein Ql (U) Negative [facility] MCV (mean corpuscular volume ) determinationOrdered By: Mercy Avendano on 12-16-2024 MCV (RBC) [Entitic vol] 88.3 fL 81-99 [facility] Mean corpuscular hemoglobin (MCH) determinationOrdered By: Mercy Avendano on 12-16-2024 MCH (RBC) [Entitic mass] 29.6 pg 27.0-32.0 [facility] Mean corpuscular hemoglobin concentration (MCHC) determinationOrdered By: Mercy Avendano on 12-16-2024 MCHC (RBC) [Mass/Vol] 33.5 g/dL 32-36 [facility] Mean platelet volume determi nationOrdered By: Mercy Avendano on 12-16-2024 Platelet mean volume (Bld) [Entitic vol] 11.8 fL 6.2-12.0 [facility] Monocyte percentageOrdered B y: Mercy Avendano on 12-16-2024 Monocytes/100 WBC (Bld) 5.8 % 0-10 [facility] Neutrophil percentageOrdered By: Mercy Avendano on 12-16-2024 Neutrophils/100 WBC (Bld) 67.9 % 47-70 [facility] Nucleated red blood cell per centageOrdered By: Mercy Avendano on 12-16-2024 Nucleated RBC/100 WBC (Bld) [Ratio] 0 % 0-5 [facility] 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 Office Visit Reporton 12-16-2024 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 Office Visit Report [facility] [address], [address] [place] [address] OFFICE VISIT Date of Service: 12/16/24 MR#: [id number] Acct: [id number] Name: HANH RM Rep #: [id number] : 1995 Provider: JONN Cox ams Age/Sex: 29/F Location[facility] Status: Signed Intake Vital Signs 10/25/24 13:03 11/22/24 13:34 12/16/24 13:25 Height 5 ft 3 in 5 ft 3 in 5 ft 3 in Weight: 157 lb BMI 27.8 BP 119/80 Intake Visit Reasons: 17wk ob Chief Complaint: 17wk ob Chief Operator Synthesis Required: No Is patient in pain?: No Allergies nitrofurantoin (From Macrobid) Allergy (Unknown, Verified 12/16/24 13:23) Hives nickel Allergy (Verified 12/16/24 13:23) Rash Sulfa (Sulfonamide Antibiotics) Allergy (Verified 12/16/24 13:23) Hives Medications ???Medication ???Instructions ???Recorded ???Confirmed ???Type docosahexaenoic acid 200 mg 200 mg PO DAILY 10/30/23 12/16/24 History capsule ( DHA) aspirin 81 mg tablet,delayed 81 mg PO QDAY 10/10/24 12/16/24 Hi story release cholestyramine (with sugar) 4 gram ea PO 10/10/24 12/16/24 History oral powder mecobalamin (vitamin B12) 10,000 mcg IM 10/10/24 12/16/24 History mcg solution for injection ondansetron 4 mg disintegrating 4 mg PO Q6H PRN nausea and 5 12/16/24 Rx tablet vomiting #90 tabs Last Menstrual Period: 08/21/24 : No PFSH PFSH Medical History Preeclampsia, severe Large for dates affecting management of mother (spontaneous vaginal delivery) Retained placenta Abnormal Pap smear of cervix History of pre-term labor Retained placenta or membranes Headache Ectopic Pre-eclampsia Herpes genitalis Migraines Anemia affecting Anxiety Surgical History Bement teeth removed Hx of cholecystectomy Family History Father Squamous cell carcinoma Mother Hyperlipidemia Brother Seizures Grandmother Breast cancer Social History adopted: No household members: family and children housing: house number of children: 3 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 Date Name GA/Weeks Outcome Route Bth Weight Gen Labor Lgth Anesthesia Del Locatn Provider FOB 07/24/15 [place] 39 live - full term 6lbs 9oz Female epidural [facility] Dr. Edna Brambila 07/08/19 [place] 37 live - full term 8lbs 6oz Male [facility] Dr. Edna Bethea Sven 11/17/23 [place] 36 live - 6lbs 15oz Female [facility] [place] Delivery Date: 07/24/15 Last Updated by: Lissa Ngo No issues during or delivery Delivery Date: 07/08/19 Last Updated by: Lissa Nog Went into pre-term labor at 36 weeks but was able to stop labor. Developed pre-eclampsia and was induced at 37 weeks. Retained placenta, curettage immediately after delivery Delivery Date: 11/17/23 Last Updated by: Lissa Ngo COVID, LGA, severe pre-e HPI 17wk [...] list details Initial Weight: 152 lb Date -???-???-???-???-???- ???-???-???-???-???-? ??-???- (more content not included)... Normal [facility] Platelet countOrdered By: Hans Avednano on 12-16-2024 Platelets (Bld) [#/Vol] 188 10*3/uL 150-450 [facility] Potassium measurement (mass/ volume)Ordered By: Mercy Avendano on 12-16-2024 Potassium (Unsp spec) [Mass/Vol] 4.1 mmol/L 3.3-5.1 [facility] RBC Auto (Bld) [#/Vol]Ordere d By: Mercy Avendano on 12-16-2024 RBC (Bld) [#/Vol] 4.36 10*6/uL 4.2-5.4 [facility] Serum creatinine measurement (mass/volume)Ordered By: Mercy Avendano on 12-16-2024 Creatinine [Mass/Vol] 0.58 mg/dL Low 0.70-1.20 [facility] Serum globulin measurementOr dered By: Mercy Avendano on 12-16-2024 Globulin (S) [Mass/Vol] 3.0 g/dL 2.2-4.2 [facility] Serum glucose measurement (m ass/volume)Ordered By: Mercy Avendano on 12-16-2024 Glucose [Mass/Vol] 86 mg/dL 70-99 [facility] Serum or plasma alanine garrett otransferase (ALT) measurementOrdered By: Mercy Avendano on 12-16-2024 ALT [Catalytic activity/Vol] 20 U/L <35 [facility] Serum or plasma albumin jennyfer urement (mass/volume)Ordered By: Mercy Avendano on 12-16-2024 Albumin [Mass/Vol] 4.0 g/dL 3.5-5.0 [facility] Serum or plasma albumin/glob ulin mass ratioOrdered By: Mercy Avendano on 12-16-2024 Albumin/Globulin [Mass ratio] 1.3 {ratio} 0.9-2.4 [facility] Serum or plasma alkaline norma sphatase measurementOrdered By: Mercy Avendano on 12-16-2024 ALP [Catalytic activity/Vol] 73 U/L 35-104 [facility] Serum or plasma calcium jennyfer urement (mass/volume)Ordered By: Mercy Avendano on 12-16-2024 Calcium [Mass/Vol] 10.3 mg/dL 7.6-11.0 [facility] Serum or plasma urea nitroge n measurement (mass/volume)Ordered By: Mercy Avendano on 12-16-2024 Urea nitrogen [Mass/Vol] 9 mg/dL 4-19 [facility] Sodium levelOrdered By: Bibiana Avendano on 12-16-2024 Sodium [Moles/Vol] 137 mmol/L 133-145 [facility] Total proteinOrdered By: Dequan Avendano on 12-16-2024 Protein [Mass/Vol] 7.0 g/dL 5.9-8.4 [facility] White blood cell (WBC) count Ordered By: Mercy Avendano on 12-16-2024 WBC (Bld) [#/Vol] 8.3 10*3/uL 4.4-11.0 [facility] Anion gap in Serum or Plasma Ordered By: Mariely Arriaga on 11-22-2024 Anion gap [Moles/Vol] 12 mmol/L 5-15 [facility] BUN/creatinine ratioOrdered By: Mariely Arriaga on 11-22-2024 Urea nitrogen/Creatinine [Mass ratio] 9.5 mg/mg Low 10-20 [facility] Bilirubin, totalOrdered By: Mariely Arriaga on 11-22-2024 Bilirubin [Mass/Vol] 0.34 mg/dL 0.00-1.30 [facility] Carbon dioxide, total [Moles /volume] in Central venous bloodOrdered By: Mariely Arriaga on 11-22-2024 CO2 [Moles/Vol] 22.8 mmol/L 21.0-32.0 [facility] Chloride assayOrdered By: Kristian Arriaga on 11-22-2024 Chloride [Moles/Vol] 102 mmol/L 98-108 [facility] Comprehensive Metabolic Prof ilon 11-22-2024 Albumin [Mass/Vol] 4.1 g/dL Normal 3.5-5.0 [facility] Comment on above: Performed By: #### L 3410.9992, L500.4050 #### [facility] [address] [place], [address] Albumin/Globulin [Mass ratio] 1.4 {ratio} Normal 0.9-2.4 [facility] Comment on above: Performed By: #### L 3410.9992, L500.4050 #### [facility] [address] [place], [address] ALK PHOS 67 U/L Normal 35-104 [facility] Comment on above: Performed By: #### L 3410.9992, [id number] #### [facility] [address] [place], [address] ALT [Catalytic activity/Vol] 36 U/L High <=34 [facility] Comment on above: Performed By: #### L 3410.9992, [id number] #### [facility] [address] [place], [address] AST [Catalytic activity/Vol] 22 U/L Normal <=31 [facility] Comment on above: Performed By: #### L 3410.9992, [id number] #### [facility] [address] [place], [address] Bilirubin [Mass/Vol] 0.34 mg/dL Normal 0.00-1.30 [facility] Comment on above: Performed By: #### L 3410.9992, [id number] #### [facility] [address] [place], [address] BUN/CRE 9.5 RATIO Low 10-20 [facility] Comment on above: Performed By: #### L 3410.9992, [id number] #### [facility] [address] [place], [address] Calcium [Mass/Vol] 9.5 mg/dL Normal 7.6-11.0 [facility] Comment on above: Performed By: #### L 3410.9992, [id number] #### [facility] [address] [place], [address] Chloride [Moles/Vol] 102 mmol/L Normal 98-108 [facility] Comment on above: Performed By: #### L 3410.9992, [id number] #### [facility] [address] [place], [address] CO2 [Moles/Vol] 22.8 mmol/L Normal 21.0-32.0 [facility] Comment on above: Performed By: #### L 3410.9992, [id number] #### [facility] [address] [place], [address] Creatinine [Mass/Vol] 0.66 mg/dL Low 0.70-1.20 [facility] Comment on above: Performed By: #### L 3410.9992, [id number] #### [facility] [address] [place], [address] GAP 12 Normal 5-15 [facility] Comment on above: Performed By: #### L 3410.9992, [id number] #### [facility] [address] [place], [address] GFR/1.73 sq M.predicted among non-blacks MDRD (S/P/Bld) [Vol rate/Area] 122 mL/min/{1.73_m2} Normal >60 [facility] Comment on above: Result Comment: mL/m in/1.73m2 CKD-EPI Creatinine Equation (2020) Performed By: #### L 3410.9992, L500.4050 #### [facility] [address] [place], [address] Globulin (S) [Mass/Vol] 2.9 g/dL Normal 2.2-4.2 [facility] Comment on above: Performed By: #### L 3410.9992, [id number] #### [facility] [address] [place], [address] Glucose [Mass/Vol] 79 mg/dL Normal 70-99 [facility] Comment on above: Performed By: #### L 3410.9992, [id number] #### [facility] [address] [place], [address] Potassium [Moles/Vol] 3.8 mmol/L Normal 3.3-5.1 [facility] Comment on above: Performed By: #### L 3410.9992, L500.4050 #### [facility] [address] [place], [address] Sodium [Moles/Vol] 137 mmol/L Normal 133-145 [facility] Comment on above: Performed By: #### L 3410.9992, L500.4050 #### [facility] [address] [place], [address] T PROT 7.0 g/dL Normal 5.9-8.4 [facility] Comment on above: Performed By: #### L 3410.9992, [id number] #### [facility] [address] [place], [address] Urea nitrogen [Mass/Vol] 6 mg/dL Normal 4-19 [facility] Comment on above: Performed By: #### L 3410.9992, L500.4050 #### [facility] [address] [place], [address] Glomerular filtration rate ( GFR) estimation/1.73 sq m using serum, plasma, or whole bOrdered By: Mariely Arriaga on 11-22-2024 GFR/1.73 sq M.predicted among non-blacks MDRD (S/P/Bld) [Vol rate/Area] 122 mL/min/{1.73_m2} >60 [facility] Comment on above: mL/min/1.73m2 CKD-EP I Creatinine Equation (2020) Laboratory - Chemistry and C hemistry - challengeOrdered By: Mairely Arriaga on 11-22-2024 AST [Catalytic activity/Vol] 22 U/L <32 [facility] Glucose Ql (U) Negative [facility] - UrinalysisOrder ed By: Mariely Arriaga on 11-22-2024 Protein Ql (U) Negative [facility] 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 Mariely Sheets DO Age/Sex: 29/F Location: [facility] Status: Signed Intake Vital Signs 12/29/23 16:16 10/25/24 13:03 11/22/24 13:34 Height 5 ft 3 in 5 ft 3 in 5 ft 3 in Weight: 152 lb 6 oz BMI 26.9 BP 119/79 Intake Visit Reasons: 13WK OB Chief Complaint: 13 Week OB Chief Operator Synthesis Required: No Is patient in pain?: No [...] genitalis Migraines Anemia affecting Anxiety Surgical History Bement teeth removed Hx of cholecystectomy Family History Father Squamous cell carcinoma Mother Hyperlipidemia Brother Seizures Grandmother Breast cancer Social History adopted: No household members: family and children housing: house number of children: 3 current occupational status: unemployed current occupation: [employer] pets and animals: Yes pets and animals: dog(s) history of recent travel: No Smoking Status: Never smoker alcohol intake: never substance use type: does not use caffeine: Yes what type of physical activity do you participate in: none sandra/mosque: Uatsdin seatbelt use: always do you feel safe at home: Yes 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 Date Name GA/Weeks Outcome Route Bth Weight Gen Labor Lgth Anesthesia Del Locatn Provider FOB 07/24/15 [place] 39 live - full term 6lbs 9oz Female epidural WC H Dr. Edna Brambila 07/08/19 [place] 37 live - full term 8lbs 6oz Male [facility] Dr. Edna Machuca 11/17/23 [place] 36 live - 6lbs 15oz Female [facility] [place] Delivery Date: 07/24/15 Last Updated [...] details Initial (more content not included)... Normal [facility] Potassium measurement (mass/ volume)Ordered By: Mariely Arriaga on 11-22-2024 Potassium (Unsp spec) [Mass/Vol] 3.8 mmol/L 3.3-5.1 [facility] Serum creatinine measurement (mass/volume)Ordered By: Mariely Arriaga on 11-22-2024 Creatinine [Mass/Vol] 0.66 mg/dL Low 0.70-1.20 [facility] Serum globulin measurementOr dered By: Mariely Arriaga on 11-22-2024 Globulin (S) [Mass/Vol] 2.9 g/dL 2.2-4.2 [facility] Serum glucose measurement (m ass/volume)Ordered By: Mariely Arriaga on 11-22-2024 Glucose [Mass/Vol] 79 mg/dL 70-99 [facility] Serum or plasma alanine garrett otransferase (ALT) measurementOrdered By: Mariely Arriaga on 11-22-2024 ALT [Catalytic activity/Vol] 36 U/L High <35 [facility] Serum or plasma albumin jennyfer urement (mass/volume)Ordered By: Mariely Arriaga on 11-22-2024 Albumin [Mass/Vol] 4.1 g/dL 3.5-5.0 [facility] Serum or plasma albumin/glob ulin mass ratioOrdered By: Mariely Arriaga on 11-22-2024 Albumin/Globulin [Mass ratio] 1.4 {ratio} 0.9-2.4 [facility] Serum or plasma alkaline norma sphatase measurementOrdered By: Mariely Arriaga on 11-22-2024 ALP [Catalytic activity/Vol] 67 U/L 35-104 [facility] Serum or plasma calcium jennyfer urement (mass/volume)Ordered By: Mariely Arriaga on 11-22-2024 Calcium [Mass/Vol] 9.5 mg/dL 7.6-11.0 [facility] Serum or plasma urea nitroge n measurement (mass/volume)Ordered By: Mariely Arriaga on 11-22-2024 Urea nitrogen [Mass/Vol] 6 mg/dL 4-19 [facility] Sodium levelOrdered By: Jocelyne Arriaga on 11-22-2024 Sodium [Moles/Vol] 137 mmol/L 133-145 [facility] Total proteinOrdered By: Ericka Arriaga on 11-22-2024 Protein [Mass/Vol] 7.0 g/dL 5.9-8.4 [facility] Vitamin B12on 11-22-2024 Cobalamin (Vitamin B12) [Mass/Vol] 385 pg/mL Normal 180-914 [facility] Comment on above: Performed By: #### L 3410.9992, L500.4050 #### [facility] [address] [place], [address] Vitamin B12 ser/plasOrdered By: Mariely Arriaga on 11-22-2024 Cobalamin (Vitamin B12) [Mass/Vol] 385 pg/mL 180-914 [facility] Absolute lymphocyte countOrd ered By: Mercy Avendano on 11-01-2024 Lymphocytes Auto (Unsp spec) [#/Vol] 1.78 10*3/uL 0.83-4.51 [facility] Absolute neutrophil countOrd ered By: Mercy Avendano on 11-01-2024 Neutrophils (Bld) [#/Vol] 3.4 10*3/uL 2.0-7.7 [facility] Anion gap in Serum or Plasma Ordered By: Mercy Avendano on 11-01-2024 Anion gap [Moles/Vol] 12 mmol/L 5-15 [facility] Automated lymphocyte count a s percentage of total leukocytesOrdered By: Mercy Avendano on 11-01-2024 Lymphocytes/100 WBC Auto (Unsp spec) 31.7 % 19-41 [facility] BUN/creatinine ratioOrdered By: Mercy Avendano on 11-01-2024 Urea nitrogen/Creatinine [Mass ratio] 14.9 mg/mg 10-20 [facility] Basophil percentageOrdered B y: Mercy Avendano on 11-01-2024 Basophils/100 WBC (Bld) 0.2 % 0-1 [facility] Bilirubin, totalOrdered By: Mercy Avendano on 11-01-2024 Bilirubin [Mass/Vol] 0.42 mg/dL Normal 0.00-1.30 [facility] Comment on above: Performed By: #### L 3410.9992, L500.4050 #### [facility] [address] [place], [address] CBC W/Diff, Automatedon Absolute Lymph 1.78 X10 3/uL Normal 0.83-4.51 [facility] Comment on above: Performed By: #### L 3410.9992, L500.4050 #### [facility] [address] [place], [address] Absolute Neut 3.4 X10 3/uL Normal 2.0-7.7 [facility] Comment on above: Performed By: #### L 3410.9992, L500.4050 #### [facility] [address] [place], [address] Basophils/100 WBC (Bld) 0.2 % Normal 0-1 [facility] Comment on above: Performed By: #### L 3410.9992, L500.4050 #### [facility] [address] [place], [address] Eosinophils/100 WBC (Bld) 1.4 % Normal 0-5 [facility] Comment on above: Performed By: #### L 3410.9992, L500.4050 #### [facility] [address] [place], [address] Erythrocyte distribution width (RBC) [Ratio] 12.7 % Normal 11.6-14.6 [facility] Comment on above: Performed By: #### L 3410.9992, L500.4050 #### [facility] [address] [place], [address] Hematocrit (Bld) [Volume fraction] 40.8 % Normal 37-47 [facility] Comment on above: Performed By: #### L 3410.9992, L500.4050 #### [facility] [address] [place], [address] Hemoglobin (Bld) [Mass/Vol] 13.8 g/dL Normal 12.0-15.0 [facility] Comment on above: Performed By: #### L 3410.9992, L500.4050 #### [facility] [address] [place], [address] IG% 0.200 Normal 0.0-0.9 [facility] Comment on above: Result Comment: IG% - Immature Granulocytes (promyelocytes, myelocytes and metamyelocytes) > 1% indicates that a LEFT SHIFT is Present. Performed By: #### L 3410.9992, L500.4050 #### [facility] [address] [place], [address] Lymphocytes/100 WBC (Bld) 31.7 % Normal 19-41 [facility] Comment on above: Performed By: #### L 3410.9992, L500.4050 #### [facility] [address] [place], [address] MCH (RBC) [Entitic mass] 29.7 pg Normal 27.0-32.0 [facility] Comment on above: Performed By: #### L 3410.9992, L500.4050 #### [facility] [address] [place], [address] MCHC (RBC) [Mass/Vol] 33.8 g/dL Normal 32-36 [facility] Comment on above: Performed By: #### L 3410.9992, L500.4050 #### [facility] [address] [place], [address] MCV (RBC) [Entitic vol] 87.7 fL Normal 81-99 [facility] Comment on above: Performed By: #### L 3410.9992, L500.4050 #### [facility] [address] [place], [address] Monocytes/100 WBC (Bld) 5.7 % Normal 0-10 [facility] Comment on above: Performed By: #### L 3410.9992, L500.4050 #### [facility] [address] [place], [address] Neutrophils/100 WBC (Bld) 60.8 % Normal 47-70 [facility] Comment on above: Performed By: #### L 3410.9992, L500.4050 #### [facility] [address] [place], [address] Nucleated RBC (Bld) [#/Vol] 0 10*3/uL Normal 0-5 [facility] Comment on above: Performed By: #### L 3410.9992, L500.4050 #### [facility] [address] [place], [address] Platelet mean volume (Bld) [Entitic vol] 11.6 fL Normal 6.2-12.0 [facility] Comment on above: Performed By: #### L 3410.9992, L500.4050 #### [facility] [address] [place], [address] Platelets (Bld) [#/Vol] 194 10*3/uL Normal 150-450 [facility] Comment on above: Performed By: #### L 3410.9992, L500.4050 #### [facility] [address] [place], [address] RBC (Bld) [#/Vol] 4.65 10*6/uL Normal 4.2-5.4 [facility] Comment on above: Performed By: #### L 3410.9992, L500.4050 #### [facility] [address] [place], [address] RDW SD 40.7 fl Normal 35.1-43.9 [facility] Comment on above: Performed By: #### L 3410.9992, L500.4050 #### [facility] [address] [place], [address] WBC (Bld) [#/Vol] 5.6 10*3/uL Normal 4.4-11.0 [facility] Comment on above: Performed By: #### L 3410.9992, L500.4050 #### [facility] [address] [place], [address] Carbon dioxide, total [Moles /volume] in Central venous bloodOrdered By: Mercy Avendano on 11-01-2024 CO2 [Moles/Vol] 20.6 mmol/L Low 21.0-32.0 [facility] Comment on above: Performed By: #### L 3410.9992, L500.4050 #### [facility] [address] [place], [address] Chloride assayOrdered By: Hans Avendano on 11-01-2024 Chloride [Moles/Vol] 102 mmol/L Normal 98-108 [facility] Comment on above: Performed By: #### L 3410.9992, L500.4050 #### [facility] [address] [place], [address] Comprehensive Metabolic Prof ilon 11-01-2024 ALK PHOS 78 U/L Normal 35-104 [facility] Comment on above: Performed By: #### L 3410.9992, L500.4050 #### [facility] [address] [place], [address] BUN/CRE 14.9 RATIO Normal 10-20 [facility] Comment on above: Performed By: #### L 3410.9992, L500.4050 #### [facility] [address] [place], [address] GAP 12 Normal 5-15 [facility] Comment on above: Performed By: #### L 3410.9992, L500.4050 #### [facility] [address] [place], [address] Potassium [Moles/Vol] 4.1 mmol/L Normal 3.3-5.1 [facility] Comment on above: Performed By: #### L 3410.9992, L500.4050 #### [facility] [address] [place], [address] T PROT 7.3 g/dL Normal 5.9-8.4 [facility] Comment on above: Performed By: #### L 3410.9992, L500.4050 #### [facility] [address] [place], [address] Comprehensive Metabolic Prof ilOrdered By: Mercy Avendano on 11-01-2024 AST [Catalytic activity/Vol] 18 U/L Normal <=31 [facility] Comment on above: Performed By: #### L 3410.9992, L500.4050 #### [facility] [address] [place], [address] Eosinophil percentageOrdered By: Mercy Avendano on 11-01-2024 Eosinophils/100 WBC (Bld) 1.4 % 0-5 [facility] Erythrocyte distribution wid th ratioOrdered By: Mercy Avendano on 11-01-2024 Erythrocyte distribution width (RBC) [Ratio] 12.7 % 11.6-14.6 [facility] Erythrocyte distribution wid th standard deviationOrdered By: Mercy Avendano on 11-01-2024 Erythrocyte distribution width (RBC) [Ratio] 40.7 fl 35.1-43.9 [facility] Glomerular filtration rate ( GFR) estimation/1.73 sq m using serum, plasma, or whole bOrdered By: Mercy Avendano on 11-01-2024 GFR/1.73 sq M.predicted among non-blacks MDRD (S/P/Bld) [Vol rate/Area] 124 mL/min/{1.73_m2} Normal >60 [facility] Comment on above: mL/min/1.73m2 CKD-EP I Creatinine Equation (2020) Result Comment: mL/m in/1.73m2 CKD-EPI Creatinine Equation (2020) Performed By: #### L 3410.9992, L500.4050 #### [facility] [address] [place], [place], [address] HIVon 11-01-2024 HIV Non-Reactive Normal Nonreactive [facility] Comment on above: Result Comment: Non- Reactive Reactive Repeatedly reactive samples must be confirmed according to CDC recommended confirmatory algorithms. The subresults for either HIVAG or AHIV can be used as an aid in the selection of the confirmation algorithm for reactive samples. Send out specimens with Reactive results to [facility] for confirmation. Order the HIV antibody detection and differentiation: #[id number] Performed By: #### L 3410.9992, L500.4050 #### [facility] [address] [facility] [place], [address] Hematocrit Auto (Bld) [Volum e fraction]Ordered By: Mercy Avendano on 11-01-2024 Hematocrit (Bld) [Volume fraction] 40.8 % 37-47 [facility] Hemoglobin measurementOrdere d By: Mercy Avendano on 11-01-2024 Hemoglobin (Bld) [Mass/Vol] 13.8 g/dL 12.0-15.0 [facility] Hepatitis C Antibodyon 11-01 Hepatitis C Ab Non-Reactive Normal Nonreactive [facility] Comment on above: Result Comment: Reac tive: Presumptive evidence of antibodies to HCV. Follow CDC recommendations for supplemental testing. Non-Reactive: Antibodies to HCV were not detected; does not exclude the possibility of exposure to HCV Reactive Results are presumptive evidence of antibodies to HCV. Follow CDC recommendations for supplemental testing. Order confirmation testing: HCV Quant by PCR testing - HCVPCR #[id number] Non Reactive: < 0.8 Equivocal: >/= 0.8 to < 1.0 Reactive: >/= 1.0 The CDC requires that a reactive/equivocal HCV antibody result be sent out for confirmation. HCV Quant by PCR testing. Performed By: #### L 3410.9992, L500.4050 #### [facility] [address] [place], [address] Immature granulocytes/100 WB C Auto (Bld)Ordered By: Mercy Avendano on 11-01-2024 Immature granulocytes/100 WBC (Bld) 0.200 % 0.0-0.9 [facility] Comment on above: IG% - Immature Granu locytes (promyelocytes, myelocytes and metamyelocytes) > 1% indicates that a LEFT SHIFT is Present. [id number] 11-01-2024 HEP B Surf Ag Non-Reactive Normal Nonreactive [facility] Comment on above: Result Comment: Reac tive: Presumptive evidence of HBV. Repeatedly reactive samples must be confirmed using a neutralization test ([employer] HBsAg Confirmatory Test) Non-Reactive: HBsAg not detected; does not exclude the possibility of exposure to HBV Performed By: #### L 3410.9992, L500.4050 #### [facility] [address] [facility] [place], [address] L509.4006on 11-01-2024 Rubella IgG REAC Normal Nonreactive [facility] Comment on above: Result Comment: Anti body Result: Interpretation Non-Reactive: Non-Immune Reactive: Immune The following results were obtained with the [employer] Rubella IgG assay. Results from assays of other manufacturers cannot be used interchangeably. Performed By: #### L 3410.9992, L500.4050 #### [facility] [address] [place], [place], [address] Laboratory - Microbiology an d Antimicrobial susceptibilityOrdered By: Mercy Avendano on 11-01-2024 HBV surface Ag Ql (S) Non-Reactive Nonreactive [facility] Comment on above: Reactive: Presumptiv e evidence of HBV. Repeatedly reactive samples must be confirmed using a neutralization test ([employer] HBsAg Confirmatory Test)Non-Reactive: HBsAg not detected; does not exclude the possibility of exposure to HBV MCV (mean corpuscular volume ) determinationOrdered By: Mercy Avendano on 11-01-2024 MCV (RBC) [Entitic vol] 87.7 fL 81-99 [facility] Mean corpuscular hemoglobin (MCH) determinationOrdered By: Mercy Avendano on 11-01-2024 MCH (RBC) [Entitic mass] 29.7 pg 27.0-32.0 [facility] Mean corpuscular hemoglobin concentration (MCHC) determinationOrdered By: Mercy Avendano on 11-01-2024 MCHC (RBC) [Mass/Vol] 33.8 g/dL 32-36 [facility] Mean platelet volume determi nationOrdered By: Mercy Avendano on 11-01-2024 Platelet mean volume (Bld) [Entitic vol] 11.6 fL 6.2-12.0 [facility] Monocyte percentageOrdered B y: Mercy Avendano on 11-01-2024 Monocytes/100 WBC (Bld) 5.7 % 0-10 [facility] NATERAon 11-01-2024 NATURA SEE SCANNED REPORT Normal [facility] - [place] Comment on above: Performed By: #### L 3890.6006, L509.4006, L500.4050, L900.0098, BTS, L3890.6301, L100.0100, L3890.6102, L503.0106, L509.8002 #### [facility] [address] [place], [address] Neutrophil percentageOrdered By: Mercy Avendano on 11-01-2024 Neutrophils/100 WBC (Bld) 60.8 % 47-70 [facility] No Panel InformationOrdered By: Mercy Avendano on 11-01-2024 HIV (1&2) Antibody Non-Reactive Nonreactive [facility] Comment on above: Non-ReactiveReactive Repeatedly reactive samples must be confirmed according to CDC recommended confirmatory algorithms. The subresults for either HIVAG or AHIV can be used as an aid in the selection of the confirmation algorithm for reactive samples.Send out specimens with Reactive results to [facility] for confirmation.Order the HIV antibody detection and differentiation: #[id number] Nucleated red blood cell per centageOrdered By: Mercy Avendano on 11-01-2024 Nucleated RBC/100 WBC (Bld) [Ratio] 0 % 0-5 [facility] Platelet countOrdered By: Hans Avendano on 11-01-2024 Platelets (Bld) [#/Vol] 194 10*3/uL 150-450 [facility] Potassium measurement (mass/ volume)Ordered By: Mercy Avendano on 11-01-2024 Potassium (Unsp spec) [Mass/Vol] 4.1 mmol/L 3.3-5.1 [facility] RBC Auto (Bld) [#/Vol]Ordere d By: Mercy Avendano on 11-01-2024 RBC (Bld) [#/Vol] 4.65 10*6/uL 4.2-5.4 [facility] Serum creatinine measurement (mass/volume)Ordered By: Mercy Avendano on 11-01-2024 Creatinine [Mass/Vol] 0.61 mg/dL Low 0.70-1.20 [facility] Comment on above: Performed By: #### L 3410.9992, L500.4050 #### [facility] [address] [place], [address] Serum globulin measurementOr dered By: Mercy Avendano on 11-01-2024 Globulin (S) [Mass/Vol] 2.9 g/dL Normal 2.2-4.2 [facility] Comment on above: Performed By: #### L 3410.9992, L500.4050 #### [facility] [address] [place], [address] Serum glucose measurement (m ass/volume)Ordered By: Mercy Avendano on 11-01-2024 Glucose [Mass/Vol] 91 mg/dL Normal 70-99 [facility] [place] Comment on above: Performed By: #### L 3410.9992, L500.4050 #### [facility] [address] [place], [address] Serum or plasma alanine garrett otransferase (ALT) measurementOrdered By: Mercy Avendano on 11-01-2024 ALT [Catalytic activity/Vol] 41 U/L High <=34 [facility] Comment on above: Performed By: #### L 3410.9992, L500.4050 #### [facility] [address] [place], [address] Serum or plasma albumin jennyfer urement (mass/volume)Ordered By: Mercy Avendano on 11-01-2024 Albumin [Mass/Vol] 4.4 g/dL Normal 3.5-5.0 [facility] [place] Comment on above: Performed By: #### L 3410.9992, L500.4050 #### [facility] [address] [place], [address] Serum or plasma albumin/glob ulin mass ratioOrdered By: Mercy Avendano on 11-01-2024 Albumin/Globulin [Mass ratio] 1.5 {ratio} Normal 0.9-2.4 [facility] Comment on above: Performed By: #### L 3410.9992, L500.4050 #### [facility] [address] [place], [address] Serum or plasma alkaline norma sphatase measurementOrdered By: Mercy Avendano on 11-01-2024 ALP [Catalytic activity/Vol] 78 U/L 35-104 [facility] Serum or plasma calcium jennyfer urement (mass/volume)Ordered By: Mercy Avendano on 11-01-2024 Calcium [Mass/Vol] 9.6 mg/dL Normal 7.6-11.0 [facility] [place] Comment on above: Performed By: #### L 3410.9992, L500.4050 #### [facility] [address] [place], [address] Serum or plasma urea nitroge n measurement (mass/volume)Ordered By: Mercy Avendano on 11-01-2024 Urea nitrogen [Mass/Vol] 9 mg/dL Normal 4-19 [facility] Comment on above: Performed By: #### L 3410.9992, L500.4050 #### [facility] [address] [place], [address] Sodium levelOrdered By: Bibiana Avendano on 11-01-2024 Sodium [Moles/Vol] 135 mmol/L Normal 133-145 [facility] [place] Comment on above: Performed By: #### L 3410.9992, L500.4050 #### [facility] [address] [place], [address] Syphilis Antibodieson 2024 Syphilis Abs Non-Reactive Normal Nonreactive [facility] Comment on above: Performed By: #### L 3410.9992, L500.4050 #### [facility] [address] [place], [address] Total proteinOrdered By: Dequan Avendano on 05-02-2025 Protein [Mass/Vol] 7.3 g/dL 5.9-8.4 [facility] [place] Type AND Screenon 11-01-2024 ABO and Rh group Nom (Bld) Blood group O Rh(D) positive Normal [facility] Comment on above: Order Comment: PN Performed By: #### L 3410.9992, L500.4050 #### [facility] [address] [place], [address] Vitamin B12 ser/plasOrdered By: Mercy Avendano on 11-01-2024 Cobalamin (Vitamin B12) [Mass/Vol] 1647 pg/mL High 180-914 [facility] Comment on above: Performed By: #### L 3410.9992, L500.4050 #### [facility] [address] [place], [address] White blood cell (WBC) count Ordered By: Mercy Avendano on 11-01-2024 WBC (Bld) [#/Vol] 5.6 10*3/uL 4.4-11.0 [facility] [place] PAP I-G w/rfx hrHPV-Aptimaon 10-31-2024 ADEQ Comment Normal . [facility] Comment on above: Order Comment: Speci men Comment: [id number] Specimen Comment: Source.............Cervix Specimen Comment: Other.............. Specimen Comment: No. of containers..01 ThinPrep Vial Result Comment: Sati sfactory for evaluation. No endocervical component is identified. Performed By: #### L 501.0900, L7000.1800, M100.2200, L7400.0353 #### [facility] [address] [place], [address] COMM . Normal . [facility] Comment on above: Order Comment: Speci men Comment: [id number] Specimen Comment: Source.............Cervix Specimen Comment: Other.............. Specimen Comment: No. of containers..01 ThinPrep Vial Performed By: #### L 501.0900, L7000.1800, M100.2200, L7400.0353 #### [facility] [address] [place], [place], [address] COMMENT Comment Normal . [facility] Comment on above: Order Comment: Speci men Comment: [id number] Specimen Comment: Source.............Cervix Specimen Comment: Other.............. Specimen Comment: No. of containers..01 ThinPrep Vial Result Comment: This liquid based ThinPrep(R) pap test was screened with the use of an image guided system. Performed By: #### L 501.0900, L7000.1800, M100.2200, L7400.0353 #### [facility] [address] [place], [place], [address] DIAG Comment Normal . [facility] Comment on above: Order Comment: Speci men Comment: [id number] Specimen Comment: Source.............Cervix Specimen Comment: Other.............. Specimen Comment: No. of containers..01 ThinPrep Vial Result Comment: NEGA TIVE FOR INTRAEPITHELIAL LESION OR MALIGNANCY. Performed By: #### L 501.0900, L7000.1800, M100.2200, L7400.0353 #### [facility] [address] [place], [place], [address] HPV RFLX Comment Normal . [facility] Comment on above: Order Comment: Speci men Comment: [id number] Specimen Comment: Source.............Cervix Specimen Comment: Other.............. Specimen Comment: No. of containers..01 ThinPrep Vial Result Comment: The HPV DNA reflex criteria were not met with this specimen result therefore, no HPV testing was performed. Performed at: [address] [place] [id number] Mobile Lounge Driver Or Operator: Yu Martin MD, Phone: [phone] Performed By: #### L 501.0900, L7000.1800, M100.2200, L7400.0353 #### [facility] [address] [place], [place], [address] PAPSMR Comment Normal . [facility] Comment on above: Order Comment: Speci men Comment: [id number] Specimen Comment: Source.............Cervix Specimen Comment: Other.............. Specimen Comment: No. of containers..01 ThinPrep Vial Result Comment: The Pap smear is a screening test designed to aid in the detection of premalignant and malignant conditions of the uterine cervix. It is not a diagnostic procedure and should not be used as the sole means of detecting cervical cancer. Both false-positive and false-negative reports do occur. Performed By: #### L 501.0900, L7000.1800, M100.2200, L7400.0353 #### [facility] [address] [place], [place], [address] PERFORM Comment Normal . [facility] Comment on above: Order Comment: Speci men Comment: [id number] Specimen Comment: Source.............Cervix Specimen Comment: Other.............. Specimen Comment: No. of containers..01 ThinPrep Vial Result Comment: Lupillo Traylor [employer] (ASCP) Performed By: #### L 501.0900, L7000.1800, M100.2200, L7400.0353 #### [facility] [address] [place], [place], [address] Chlamydia/GC CARMEN aptimaon CHLAMY,NUC ACID Negative Normal Negative [facility] Comment on above: Performed By: #### L 501.0900, L7000.1800, M100.2200, L7400.0353 #### [facility] [address] [place], [address] GC BY NUC ACID Negative Normal Negative [facility] Comment on above: Result Comment: Perf ormed at: =G - [facility] [address] [id number] Mobile Lounge Driver Or Operator: Yu Martin MD, Phone: [phone] Performed By: #### L 501.0900, L7000.1800, M100.2200, L7400.0353 #### [facility] [address] [place], [address] Urine Cultureon 10-26-2024 URC Culture exhibits no growth. Normal [facility] Comment on above: Performed By: #### L 501.0900, L7000.1800, M100.2200, L7400.0353 #### [facility] [address] [place], [place], [address] Cervical or vagninal specime n microscopic examination by cytology stain (reported asOrdered By: Mercy Avendano on 10-25-2024 Cytology report Cyto stain Doc (Cvx/Vag) Comment . [facility] Comment on above: The Pap smear [...] rRNA CARMEN+probe Ql (Unsp spec) Negative Negative [facility] - CytologyOrdered By: Mercy Avendano on 10-25-2024 [employer] Cyto stain Nom (Cvx/Vag) [ID] Comment . [facility] Comment on above: Joann Briseno ologist (ASCP) Laboratory - Miscellaneous t estsOrdered By: Mercy Avendano on 10-25-2024 Service comment (Unsp spec) [Interp] . . [facility] Neisseria gonorrhoeae nuclei c acid detection by amplified probe techniqueOrdered By: Mercy Avendano on 10-25-2024 N. gonorrhoeae DNA CARMEN+probe Ql (Unsp spec) Negative Negative [facility] Comment on above: Performed at: =[address] [id number] Director: Yu Martin MD, Phone: [phone] No Panel InformationOrdered By: Mercy Avendano on 10-25-2024 Pap Smear Specimen Adequacy Comment . [facility] Comment on above: Satisfactory for speedy luation. No endocervical component is identified. 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* Chief Complaint: New OB Chief Operator Synthesis Required: No Is patient in pain?: No [...] genitalis Migraines Anemia affecting Anxiety Surgical History Bement teeth removed Hx of cholecystectomy Family History (Updated 10/10/24 @ 08:40 by Joya Villeda, RN) Father Squamous cell carcinoma Mother Hyperlipidemia Brother Seizures Grandmother Breast cancer Social History (Updated 10/10/24 @ 08:30 by Joya Villeda, RN) adopted: No household members: family and children housing: house number of children: 3 service: No current occupational status: unemployed current occupation: [employer] pets and animals: Yes pets and animals: dog(s) history of recent travel: No Smoking Status: Never smoker alcohol intake: never substance use type: does not use caffeine: Yes what type of physical activity do you participate in: none sandra/mosque: Uatsdin seatbelt use: always do you feel safe at home: Yes 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 Date Name GA/Weeks Outcome Route Bth Weight Gen Labor Lgth Anesthesia Del Locatn Provider FOB 07/24/15 Anu 39 live - full term 6lbs 9oz Female epidural [facility] Dr. Edna Brambila 07/08/19 Landon 37 live - full term 8lbs 6oz Male [facility] Dr. Edna Machuca 11/17/23 Kimmie 36 live - 6lbs 15oz Female 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 Normal [facility] Protein+Creatinine Ratio,Uri neon 10-25-2024 PROT:CRE RATIO 69 mg/g CRE Normal 0-200 [facility] Comment on above: Performed By: #### L 501.0900, L7000.1800, M100.2200, L7400.0353 #### [facility] [address] [place], [address] Protein (U) [Mass/Vol] 9.4 mg/dL Normal 0.0-12.0 [facility] [place] Comment on above: Performed By: #### L 501.0900, L7000.1800, M100.2200, L7400.0353 #### [facility] [address] [place], [address] UR CREAT 135.00 mg/dL Normal 28.00-217.00 [facility] Comment on above: Performed By: #### L 501.0900, L7000.1800, M100.2200, L7400.0353 #### [facility] [address] [place], [address] Random urine creatinine jennyfer urement (mass/volume)Ordered By: Mercy Avendano on 10-25-2024 Creatinine Unsp time (U) [Mass/Vol] 135.00 mg/dL 28.00-217.00 [facility] Urine cultureOrdered By: Dequan Avendano on 10-25-2024 Bacteria identified Cx Nom (U) Culture exhibits no growth. [facility] Urine protein measurement (m ass/volume)Ordered By: Mercy Avendano on 10-25-2024 Protein (U) [Mass/Vol] 9.4 mg/dL 0.0-12.0 [facility] [place] Urine protein/creatinine mas s ratioOrdered By: Mercy Avendano on 10-25-2024 Protein/Creatinine (U) [Mass ratio] 69 mg/g CRE 0-200 [facility] CBC (INCLUDES DIFF/PLT)on Basophils (Bld) [#/Vol] 0.02 10*3/uL Normal 0-200 [facility] Comment on above: Performed By: #### 9 0265, 5407, 69212, 12049 #### [facility] [address] [facility], [address] [place] [address] Reflow Operator: Terry Calvert MD #### 568 #### [facility] [address] [address] [facility] [place] [address] Reflow Operator: Mahad Bethea M.D.,PhD Basophils/100 WBC (Bld) 0.4 % Normal [facility] Comment on above: Performed By: #### 9 5879, 6399, 83673, 23623 #### [facility] of [place] [address] [address] , [address] [place] [address] Reflow Operator: Terry Calvert MD #### 568 #### [facility] [address] [place] [address] [place], [place] Reflow Operator: Mahad Bethea M.D.,PhD Eosinophils (Bld) [#/Vol] 0.108 10*3/uL Normal 15-500 [facility] Comment on above: Performed By: #### 9 2665, 6399, 30882, 02543 #### [facility] of [address], [address] [place], [place] [address] Reflow Operator: Terry Calvert MD #### 568 #### [facility] [address] [place] [address] [place] Reflow Operator: Mahad Bethea M.D.,PhD Eosinophils/100 WBC (Bld) 2.2 % Normal [facility] Comment on above: Performed By: #### 9 2665, 6399, 43388, 40837 #### [facility] of [address], [address] [place], [place] [address] Reflow Operator: Terry Calvert MD #### 568 #### [facility] [address] [place] [address] [place], [place] Reflow Operator: Mahad Bethea M.D.,PhD Erythrocyte distribution width (RBC) [Ratio] 12.7 % Normal 11.0-15.0 [facility] Comment on above: Performed By: #### 9 2665, 6399, 26059, 44153 #### [facility] of [address], [address] [place] [address] Reflow Operator: Terry Calvert MD #### 568 #### [facility]/[place] [id number] [facility] [place], [place] Reflow Operator: Mahad Bethea M.D.,PhD Hematocrit (Bld) [Volume fraction] 41.4 % Normal 35.0-45.0 [facility] Comment on above: Performed By: #### 9 2665, 63, 22634, 71573 #### [facility] [place] [address] [address] , [address] [place], [place] [address] Reflow Operator: Terry Calvert MD #### 568 #### [facility] [place], [place] Reflow Operator: Mahad Bethea M.D.,PhD Hemoglobin (Bld) [Mass/Vol] 13.7 g/dL Normal 11.7-15.5 [facility] Comment on above: Performed By: #### 9 266, 72, 66602, 28467 #### [facility] [place] [address] [address] , [address] [place] [address] Reflow Operator: Terry Calvert MD #### 568 #### [facility]/[place] [id number] [facility] [place], [place] Reflow Operator: Mahad Bethea M.D.,PhD Lymphocytes (Bld) [#/Vol] 2.048 10*3/uL Normal 850-3900 [facility] Comment on above: Performed By: #### 9 2665, 87, 09289, 91876 #### [facility] [place] [address] [address] , [address] [place] [address] Reflow Operator: Terry Calvert MD #### 568 #### [facility]/[address] [place], [place] Reflow Operator: Mahad Bethea M.D.,PhD Lymphocytes/100 WBC (Bld) 41.8 % Normal [facility] Comment on above: Performed By: #### 9 2665, 6399, 76614, 20187 #### [facility] [place] [address] [address] , [address] [place] [address] Reflow Operator: Terry Calvert MD #### 568 #### [facility]/[place] [address] [facility] [address] [place] Reflow Operator: Mahad Bethea M.D.,PhD MCH (RBC) [Entitic mass] 29.4 pg Normal 27.0-33.0 [facility] Comment on above: Performed By: #### 9 9005, 6399, 39953, 67202 #### [facility] [address], [address] [place] [address] Reflow Operator: Terry Calvert MD #### 568 #### [facility] [place] Reflow Operator: Mahad Bethea M.D.,PhD MCHC (RBC) [Mass/Vol] 33.1 [...] patient's clinical condition. Performed By: #### 9 0825, 6399, 31912, 61951 #### [facility] [address] Reflow Operator: Terry Calvert MD #### 568 #### [facility] [address] [place] [address] [place] Reflow Operator: Mahad Bethea M.D.,PhD MCV (RBC) [Entitic vol] 88.8 fL Normal 80.0-100.0 [facility] Comment on above: Performed By: #### 9 8615, 6399, 10638, 49766 #### [facility] [address] Reflow Operator: Terry Calvert MD #### 568 #### [facility] [address] [place] Reflow Operator: Mahad Bethea M.D.,PhD Monocytes (Bld) [#/Vol] 0.377 10*3/uL Normal 200-950 [facility] Comment on above: Performed By: #### 9 2665, 6399, 28068, 69659 #### [facility] of [address], [address] [place], [place] [address] Reflow Operator: Terry Calvert MD #### 568 #### [facility]/[place] [id number] [facility] [place] Reflow Operator: Mahad Bethea M.D.,PhD Monocytes/100 WBC (Bld) 7.7 % Normal [facility] Comment on above: Performed By: #### 9 2665, 6399, 33735, 85823 #### [facility] of [address], [address] [place], [place] [address] Reflow Operator: Terry Calvert MD #### 568 #### [facility]/[address] [place], [place] Reflow Operator: Mahad Bethea M.D.,PhD Neutrophils (Bld) [#/Vol] 2.347 10*3/uL Normal 4084-4707 [facility] Comment on above: Performed By: #### 9 2665, 6399, 33250, 83329 #### [facility] of [address], [address] [place], [place] [address] Reflow Operator: Terry Calvert MD #### 568 #### [facility]/[address] [place] Reflow Operator: Mahad Bethea M.D.,PhD Neutrophils/100 WBC (Bld) 47.9 % Normal [facility] Comment on above: Performed By: #### 9 2665, 6399, 41213, 83162 #### [facility] of [address], [address] [place] [address] Reflow Operator: Terry Calvert MD #### 568 #### [facility]/[address] [place] Reflow Operator: Mahad Bethea M.D.,PhD Platelet mean volume (Bld) [Entitic vol] 11.6 fL Normal 7.5-12.5 [facility] Comment on above: Performed By: #### 9 2665, 6399, 92478, 04815 #### [facility] of [address], [address] [place] [address] Reflow Operator: Terry Calvert MD #### 568 #### [facility]/[address] [place], [place] Reflow Operator: Mahad Bethea M.D.,PhD Platelets (Bld) [#/Vol] 208 10*3/uL Normal 140-400 [facility] Comment on above: Performed By: #### 9 2665, 6399, 30340, #### [facility] of [place] [address] Reflow Operator: Terry Calvert MD #### 568 #### [facility] [address] [place] [address] [place] Reflow Operator: Mahad Bethea M.D.,PhD RBC (Bld) [#/Vol] 4.66 10*6/uL Normal 3.80-5.10 [facility] Comment on above: Performed By: #### 9 2665, 6399, 80478, #### [facility] of [address], [address] [place], [place] [address] Reflow Operator: Terry Calvert MD #### 568 #### [facility]/[place] [address] [facility] [address] [place] Reflow Operator: Mahad Bethea M.D.,PhD WBC (Bld) [#/Vol] 4.9 10*3/uL Normal 3.8-10.8 [facility] Comment on above: Performed By: #### 9 2665, 6399, 17243, 75987 #### [facility] of [address], [address] [place], [place] [address] Reflow Operator: Terry Calvert MD #### 568 #### [facility] [address] [place] Reflow Operator: Mahad Bethea M.D.,PhD COMPREHENSIVE METABOLIC PANE L W/ANION GAPon 10-03-2024 Albumin [Mass/Vol] 4.6 g/dL Normal 3.6-5.1 [facility] Comment on above: Performed By: #### 9 2865, 6399, 84855, 84770 #### [facility] of [address], [address] [place], [place] [address] Reflow Operator: Terry Calvert MD #### 568 #### [facility] [place] Reflow Operator: Mahad Bethea M.D.,PhD ALP [Catalytic activity/Vol] 67 U/L Normal 31-125 [facility] Comment on above: Performed By: #### 9 4195, 6399, 95353, 70245 #### [facility] of [address], [address] [place] [address] Reflow Operator: Terry Calvert MD #### 568 #### [facility] [place] Reflow Operator: Mhaad Bethea M.D.,PhD ALT [Catalytic activity/Vol] 29 U/L Normal 6-29 [facility] Comment on above: Performed By: #### 9 2665, 6399, 68404, 44855 #### [facility] of [address], [address] [place] [address] Reflow Operator: Terry Calvert MD #### 568 #### [facility] [address] [place] Reflow Operator: Mahad Bethea M.D.,PhD AST [Catalytic activity/Vol] 15 U/L Normal 10-30 [facility] Comment on above: Performed By: #### 9 3815, 3393, 66405, 57884 #### [facility] of [address], [address] [place], [place] [address] Reflow Operator: Terry Calvert MD #### 568 #### [facility]/[address] [place], [place] Reflow Operator: Mahad Bethea M.D.,PhD Bilirubin [Mass/Vol] 0.5 mg/dL Normal 0.2-1.2 [facility] Comment on above: Performed By: #### 9 2525, 5112, 61805, 62978 #### [facility] of [address] [address], [address] [place], [place] [address] Reflow Operator: Terry Calvert MD #### 568 #### [facility]/[address] [place], [place] Reflow Operator: Mahad Bethea M.D.,PhD Calcium [Mass/Vol] 9.4 mg/dL Normal 8.6-10.2 [facility] Comment on above: Performed By: #### 9 8405, 5415, 27893, 87844 #### [facility] of [place] [id number] Reflow Operator: Terry Calvert MD #### 568 #### [facility]/[address] [place], [place] Reflow Operator: Mahad Bethea M.D.,PhD Chloride [Moles/Vol] 106 mmol/L Normal 98-110 Ques t [facility]ostics Comment on above: Performed By: #### 9 8635, 8733, 24088, 76979 #### [facility] of [address], [address] [place], [place] [address] Reflow Operator: Terry Calvert MD #### 568 #### [facility]/[address] [place] Reflow Operator: Mahad Bethea M.D.,PhD CO2 [Moles/Vol] 26 mmol/L Normal 20-32 [facility] Comment on above: Performed By: #### 9 8855, 6399, 94767, 06538 #### [facility] of [address], [address] [place], [place] [address] Reflow Operator: Terry Calvert MD #### 568 #### [facility]/[place] [id number] [facility] [place], [place] Reflow Operator: Mahad Bethea M.D.,PhD Creatinine [Mass/Vol] 0.69 mg/dL Normal 0.50-0.96 [facility] [facility] Comment on above: Performed By: #### 9 6845, 3799, 30711, 22994 #### [facility] [address], [address] [place], [place] [address] Reflow Operator: Terry Calvert MD #### 568 #### [facility]/[address] [place] Reflow Operator: Mahad Bethea M.D.,PhD ELECTROLYTE BALANCE 7 mmol/L (calc) Normal 7-17 [facility] Comment on above: Performed By: #### 9 2435, 7263, 81050, 36634 #### [facility] [address], [address] [place], [place] [phone] Reflow Operator: Trery Calvert MD #### 568 #### [facility]/[address] [place] Reflow Operator: Mahad Bethea M.D.,PhD GFR/1.73 sq M.predicted among non-blacks MDRD (S/P/Bld) [Vol rate/Area] 120 mL/min/{1.73_m2} Normal > OR = 60 [facility] Comment on above: Performed By: #### 9 5515, 9799, 69396, 26355 #### [facility] of [address], [address] [place] [address] Reflow Operator: Terry Calvert MD #### 568 #### [facility] [place] Reflow Operator: Mahad Bethea M.D.,PhD Glucose [Mass/Vol] 81 mg/dL Normal 65-99 [facility] Comment on above: Result Comment: Fasting reference interval Performed By: #### 9 2665, 6399, 12547, 26541 #### [facility] of [address], [address] [place], [place] [phone] Reflow Operator: Terry Calvert MD #### 568 #### [facility] [place] Reflow Operator: Mahad Bethea M.D.,PhD Potassium [Moles/Vol] 3.8 mmol/L Normal 3.5-5.[address] [facility] Comment on above: Performed By: #### 9 4395, 6399, 88421, 39236 #### [facility] of [address], [address] [place], [place] [phone] Reflow Operator: Terry Calvert MD #### 568 #### [facility] [place] Reflow Operator: Mahad Bethea M.D.,PhD Protein [Mass/Vol] 7.0 g/dL Normal 6.1-8.1 [facility] Comment on above: Performed By: #### 9 2665, 6399, 47049, 73000 #### [facility] of [address], [address] [place] [address] Reflow Operator: Terry Calvert MD #### 568 #### [facility] [place] Reflow Operator: Mahad Bethea M.D.,PhD Sodium [Moles/Vol] 139 mmol/L Normal 135-146 [facility] Comment on above: Performed By: #### 9 7995, 6399, 68570, 72992 #### [facility] [address], [address] [place], [place] [address] Reflow Operator: Terry Calvert MD #### 568 #### [facility] [place], [place] Reflow Operator: Mahad Bethea M.D.,PhD Urea nitrogen [Mass/Vol] 8 mg/dL Normal 7-25 [facility] Comment on above: Performed By: #### 9 6705, 6399, 02012, 36611 #### [facility] [address], [address] [place] [address] Reflow Operator: Terry Calvert MD #### 568 #### [facility]/[place] [id number] [facility] [place], [place] Reflow Operator: Mahad Bethea M.D.,PhD INTRINSIC FACTOR BLOCKING AN TIBODYon 10-03-2024 INTRINSIC FACTOR BLOCKING ANTIBODY Negative Normal Negative [facility] Comment on above: Result Comment: For additional information, please refer to http://education.[employer]/faq/IFAB (This link is being provided for informational/ educational purposes only.) Performed By: #### 9 4915, 8382, 00489, 05103 #### [facility] [address], [address] [place], [place] [address] Reflow Operator: Terry Calvert MD #### 568 #### [facility] [place], [place] Reflow Operator: Mahad Bethea M.D.,PhD LIPID PANEL WITH REFLEX TO D IRECT LDLon 10-03-2024 Cholesterol [Mass/Vol] 174 mg/dL Normal <200 Qu est Diagnostics Comment on above: Order Comment: FASTI NG:YES FASTING: YES Performed By: #### 9 0305, 6399, 53630, 49273 #### [facility] [address] [facility], [address] [place] [address] Reflow Operator: Terry Calvert MD #### 568 #### [facility] [place] Reflow Operator: Mahad Bethea M.D.,PhD Cholesterol in HDL [Mass/Vol] 61 mg/dL Normal > OR = 50 [facility] Comment on above: Order Comment: FASTI NG:YES FASTING: YES Performed By: #### 9 2665, 6399, 14763, 48143 #### [facility] [address], [address] [place] [address] Reflow Operator: Terry Calvert MD #### 568 #### [facility] [address] [place] Reflow Operator: Mahad Bethea M.D.,PhD Cholesterol in LDL [Mass/Vol] 99 mg/dL Normal [facility] Comment on above: Order Comment: FASTI NG:YES FASTING: YES Result Comment: Refe rence range: <100 Desirable range <100 mg/dL for primary prevention; <70 mg/dL for patients with CHD or diabetic patients with > or = 2 CHD risk factors. LDL-C is now calculated using the Eric-Simeon calculation, which is a validated novel method providing better accuracy than the Friedewald equation in the estimation of LDL-C. Eric NORMAN et al. MAHESH. 2013;310(19): 8805-7720 (http://education.i[employer].Modern Guild/faq/TBZ127) Performed By: #### 9 2665, 6399, 79114, 39858 #### [facility] [address], [address] [place] [address] Reflow Operator: Terry Calvert MD #### 568 #### [facility] [address] [place] Reflow Operator: Mahad Bethea M.D.,PhD Cholesterol.total/Peg sterol in HDL [Mass ratio] 2.9 {ratio} Normal <5.0 [facility] Comment on above: Order Comment: FASTI NG:YES FASTING: YES Performed By: #### 9 3045, 8999, 38518, 80382 #### [facility] [address], [address] [place], [place] [address] Reflow Operator: Trery Calvert MD #### 568 #### [facility]/[place] [address] [facility] [place], [place] Reflow Operator: Mahad Bethea M.D.,PhD NON HDL CHOLESTEROL 113 mg/dL (calc) Normal <130 [facility] Comment on above: Order Comment: FASTI NG:YES FASTING: YES Result Comment: For patients with diabetes plus 1 major ASCVD risk factor, treating to a non-HDL-C goal of <100 mg/dL (LDL-C of <70 mg/dL) is considered a therapeutic option. Performed By: #### 9 3985, 7840, 59253, 07919 #### [facility] [address], [address] [place] [address] Reflow Operator: Terry Calvert MD #### 568 #### [facility] [address] [facility] [place], [place] Reflow Operator: Mahad Bethea M.D.,PhD Triglyceride [Mass/Vol] 57 mg/dL Normal <150 Q uest Diagnostics Comment on above: Order Comment: FASTI NG:YES FASTING: YES Performed By: #### 9 2545, 9823, 82709, 65382 #### [facility] [address], [address] [place] [address] Reflow Operator: Terry Calvert MD #### 568 #### [facility]/[place] [address] [facility] [place], [place] Reflow Operator: Mahad Bethea M.D.,PhD TSH W/REFLEX TO FT4on 2024 TSH W/REFLEX TO FT4 2.01 mIU/L Normal [facility] Comment on above: Result Comment: Refe rence Range > or = 20 Years 0.40-4.50 Ranges First trimester 0.26-2.66 Second trimester 0.55-2.73 Third trimester 0.43-2.91 Performed By: #### 9 2665, 6399, 34761, 71898 #### [facility] [address], [address] [place] [address] Reflow Operator: Terry Calvert MD #### 568 #### [facility]/[place] [id number] [facility] [place], [place] Reflow Operator: Mahad Bethea M.D.,PhD VITAMIN B12on 10-03-2024 Cobalamin [...] will have symptoms. Performed By: #### 9 9365, 6399, 51644, 94672 #### [facility] [address], [address] [place] [address] Reflow Operator: Terry Calvert MD #### 568 #### [facility] [place], [place] Reflow Operator: Mahad Bethea M.D.,PhD Gliadin peptide Ab.IgAon Gliadin peptide IgA IA Qn (S) 5.1 U/mL Normal <15.0 [facility] Comment on above: Result Comment: Fals e negative Deamidated Gliadin Peptide Antibody, IgA results can occur in patients already adhering to a gluten-free diet or patients with IgA deficiency. Tissue Transglutaminase Antibody, IgA is the preferred test for screening patients with suspected Celiac Disease. ??? Performed By: #### 6 3453-5 #### SUSANA Hernandez ([id number]) [facility] ([facility]) [id number] [place] [address] Gliadin peptide Ab.IgGon Gliadin peptide IgG IA Qn (S) <0.56 Normal 0.00-4.99 [facility] Comment on above: Result Comment: INTE [...] in patients without IgA deficiency. Performed By: [facility] [address] [place] [address] Diesel Mechanic: Santi Man MD, PhD CLIA Number: [id number] Performed By: #### 6 3459-2 #### [facility] (RICHARD) ([id number]) [address] [place] [address] Tissue transglutaminase Ab.I gAon 06-13-2024 tTG IgA IA Qn (S) <1.0 Normal <15.0 [facility] Comment on above: Result Comment: Emma ac disease is unlikely. False negative Tissue Transglutaminase Antibody, IgA results can occur in approximately 10% of patients with celiac disease, patients already adhering to a gluten-free diet, or patients with IgA deficiency. Performed By: #### 4 6128-5 #### SUSANA Hrenandez ([id number]) [facility] ([facility]) [address] [place] [address] Tissue transglutaminase Ab.I gGon 06-13-2024 tTG IgG IA Qn (S) <0.82 Normal 0.00-4.99 [facility] Comment on above: Result Comment: INTE RPRETIVE [...] in patients without IgA deficiency. Performed By: [facility] [address] [place] [address] Diesel Mechanic: Santi Man MD, PhD CLIA Number: [id number] Performed By: #### 5 6537-4 #### [facility] (RICHARD) ([id number]) [address] [place] [address] CT ABDOMEN PELVIS WITH IV CO NTRAST [...] MonMay 13, 2024 9:02:[address] [facility] Comment on above: Order Comment: Injur y/Trauma or Illness?:Injury/Trauma How long have you had these symptoms (acute/chronic)?:Acute Reason for exam?:pain in mid abdomen after falling down a flight of stairs 2 days ago Type of Exam?:Initial Mechanism of injury?:mechanical ED Prov Noteon 05-13-2024 ED Prov Note ED PROVIDER NOTE [facility] EM[facility] NAME: Hanh Rm AGE: 29 y.o. : 1995 VISIT DATE: 05/13/2024 CSN: [id number] PCP: Hanh Madrigal DO Chief Complaint Patient [...] 08/27/2019 acute cholecystitis due to gallstones......Dr. 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 Normal [facility] POC BASIC METABOLIC PANEL - [facility] 05-13-2024 Chloride [Moles/Vol] 106 mmol/L Normal 98-108 [facility] Comment on above: Order Comment: [facility] has implemented the eGFR calculation approach that does not have a coefficient for race that conforms to the NKF-ASN Task Force Recommendations. CO2 [Moles/Vol] 24 mmol/L Normal 21-32 [facility] Comment on above: Order Comment: [facility] has implemented the eGFR calculation approach that does not have a coefficient for race that conforms to the NKF-ASN Task Force Recommendations. Creatinine [Mass/Vol] 0.78 mg/dL Normal 0.40-1.10 [facility] Comment on above: Order Comment: [facility] has implemented the eGFR calculation approach that does not have a coefficient for race that conforms to the NKF-ASN Task Force Recommendations. Glucose [Mass/Vol] 88 mg/dL Normal 65-99 [facility] Comment on above: Order Comment: [facility] has implemented the eGFR calculation approach that does not have a coefficient for race that conforms to the NKF-ASN Task Force Recommendations. POC GFR 106 mL/min/1.73 m2 Normal >=60 [facility] Comment on above: Order Comment: [facility] has implemented the eGFR calculation approach that does not have a coefficient for race that conforms to the NKF-ASN Task Force Recommendations. Result Comment: Angie mated GFR was calculated using the 2020 CKD-EPI creatinine equation. POC IONIZED CALCIUM 4.6 mg/dL Normal 4.5-5.3 [facility] Comment on above: Order Comment: [facility] has implemented the eGFR calculation approach that does not have a coefficient for race that conforms to the NKF-ASN Task Force Recommendations. Potassium [Moles/Vol] 3.8 mmol/L Normal 3.5-5.1 [facility] Comment on above: Order Comment: [facility] has implemented the eGFR calculation approach that does not have a coefficient for race that conforms to the NKF-ASN Task Force Recommendations. Sodium [Moles/Vol] 142 mmol/L Normal 135-145 [facility] Comment on above: Order Comment: [facility] has implemented the eGFR calculation approach that does not have a coefficient for race that conforms to the NKF-ASN Task Force Recommendations. Urea nitrogen [Mass/Vol] 14 mg/dL Normal 8-25 [facility] Comment on above: Order Comment: [facility] has implemented the eGFR calculation approach that does not have a coefficient for race that conforms to the NKF-ASN Task Force Recommendations. POC CBC AND DIFFERENTIALon 1 07-13-2023 BASOPHILS ABSOLUTE COUNT 0.01 K/mcL Normal 0.00-0.30 [facility] Basophils/100 WBC (Bld) 0.2 % Normal [facility] Eosinophils (Bld) [#/Vol] 0.11 10*3/uL Normal 0.00-0.50 [facility] Eosinophils/100 WBC (Bld) 1.9 % Normal [facility] Erythrocyte distribution width (RBC) [Ratio] 12.1 % Normal 11.6-14.8 [facility] Hematocrit (Bld) [Volume fraction] 43.5 % Normal 36.0-46.0 [facility] Hemoglobin (Bld) [Mass/Vol] 14.6 g/dL Normal 12.0-16.0 [facility] IG ABSOLUTE 0.00 K/mcL Normal 0.00-0.30 [facility] IG PERCENT 0.00 % Normal [facility] Comment on above: Result Comment: The IG parameter is the percentage of metamyelocytes, myelocytes and promyelocytes. An immature granulocyte count (IG) of 1% or more suggests the possibility of infection, an IG count of 3% is very likely related to an infection. Lymphocytes (Bld) [#/Vol] 1.88 10*3/uL Normal 0.90-4.00 [facility] Lymphocytes/100 WBC (Bld) 32.5 % Normal [facility] MCH (RBC) [Entitic mass] 29.9 pg Normal 26.0-34.0 [facility] MCV (RBC) [Entitic vol] 89.1 fL Normal 80.0-100.0 [facility] MEAN CORPUSCULAR HEMOGLOBIN CONC 33.6 g/dL Normal 31.0-37.0 [facility] Monocytes (Bld) [#/Vol] 0.51 10*3/uL Normal 0.30-0.90 [facility] Monocytes/100 WBC (Bld) 8.8 % Normal [facility] NEUTROPHILS ABSOLUTE COUNT 3.28 K/mcL Normal 1.70-7.00 [facility] Neutrophils/100 WBC (Bld) 56.6 % Normal [facility] Platelet mean volume (Bld) [Entitic vol] 10.9 fL Normal 9.4-12.4 [facility] Platelets (Bld) [#/Vol] 155 10*3/uL Normal 150-400 [facility] RBC (Bld) [#/Vol] 4.88 10*6/uL Normal 4.00-5.20 [facility] WBC (Bld) [#/Vol] 5.79 10*3/uL Normal 4.50-11.00 [facility] POC LIVER PANEL PLUS Martita 05-13-2024 Albumin [Mass/Vol] 4.3 g/dL Normal 3.2-5.2 [facility] ALP [Catalytic activity/Vol] 75 U/L Normal 40-140 [facility] ALT [Catalytic activity/Vol] 17 U/L Normal 0-40 [facility] Amylase [Catalytic activity/Vol] 65 U/L Normal 25-115 [facility] Amylase [Catalytic activity/Vol] 12 U/L Normal 7-33 [facility] AST [Catalytic activity/Vol] 21 U/L Normal 0-45 [facility] Bilirubin [Mass/Vol] 0.9 mg/dL Normal 0.0-1.3 [facility] Protein [Mass/Vol] 7.7 g/dL Normal 6.0-8.0 [facility] POC , URINE - RALSo n 05-13-2024 Beta HCG ( test) Ql (U) Negative Normal Negative [facility] Comment on above: Order Comment: Negat zachary: Dilute urine specimens, as indicated by a low specific gravity (<1.010) may not contain representitive levels of hCG. If is still suspected, a serum test or repeat urine test using a first morning urine specimen should be considered. POC [facility] POC BILIRUBIN, URINE Small Abnormal Negative [facility] POC BLOOD, URINE Trace-intact Abnormal Negative [facility] POC GLUCOSE, URINE Negative Normal Negative [facility] POC KETONES, URINE Trace Abnormal Negative [facility] POC LEUKOCYTE ESTERASE, URINE Negative Normal Negative [facility] POC NITRITE, URINE Negative Normal Negative [facility] POC PH, URINE 5.5 Normal 5.0-7.0 [facility] POC PROTEIN, URINE Trace Abnormal Negative [facility] POC SPECIFIC GRAVITY >= High 1.005-1.025 [facility] POC UROBILINOGEN 0.2 mg/dL Normal < 2.0 [facility] Cobalaminson 04-26-2024 Cobalamin (Vitamin B12) [Mass/Vol] 293 pg/mL Normal 211-911 [facility] Comment on above: Performed By: #### 2 132-9 #### CORTEZ RADHA ([id number]) [facility] ([facility]) [address] [place] [address] Lipid 1996 panelon 4 Cholesterol [Mass/Vol] 201 mg/dL High 0-199 [facility] Comment on above: Result Comment: Age Desirable [...] By: #### 2 4331-1 #### DIEGO GARCIA ([id number]) [facility] ([facility]) [address] [place] [address] Cholesterol in HDL [Mass/Vol] 69.0 mg/dL Normal [facility] Comment on above: Result Comment: Age Very Low Low Normal High 0-19 Y < 35 < 40 40-45 ---- 20-24 Y ---- < 40 >45 ---- >24 Y ---- < 40 40-60 >60 Performed By: #### 2 4331-1 #### DIEGO GARCIA ([id number]) [facility] ([facility]) [address] [place] [address] Cholesterol in LDL [Mass/Vol] 120 mg/dL High <=99 [facility] Comment on above: Result Comment: Near Borderline AGE Desirable Optimal High High Very High 0-19 Y 0 - 109 --- 110-129 >/= 130 ---- 20-24 Y 0 - 119 --- 120-159 >/= 160 ---- >24 Y 0 - 99 100-129 130-159 160-189 >/=190 Performed By: #### 2 4331-1 #### DIEGO GARCIA ([id number]) [facility] ([facility]) [address] [place] [address] Cholesterol in VLDL [Mass/Vol] 12 mg/dL Normal 0-40 [facility] Comment on above: Performed By: #### 2 4331-1 #### DIEGO GARCIA ([id number]) [facility] ([facility]) [address] [place] [address] CHOLESTEROL/HDL RATIO 2.9 Normal [facility] Comment on above: Result Comment: Ref Values Desirable < 3.4 High Risk > 5.0 Performed By: #### 2 4331-1 #### DIEGO GARCIA ([id number]) [facility] ([facility]) [address] [place] [address] NON HDL CHOLESTEROL 132 mg/dL Normal 0-149 [facility] Comment on above: Result Comment: Age Desirable Borderline High High Very High 0-19 Y 0 - 119 120 - 144 >/= 145 >/= 160 20-24 Y 0 - 149 150 - 189 >/= 190 ---- >24 Y 30 mg/dL above LDL Cholesterol goal Performed By: #### 2 4331-1 #### DIEGO GARCIA ([id number]) [facility] ([facility]) [facility] [place] [address] Triglyceride [Mass/Vol] 62 mg/dL Normal 0-149 [facility] Comment on above: Result Comment: Age Desirable [...] By: #### 2 4331-1 #### DIEGO GARCIA ([id number]) [facility] ([facility]) [facility] [place] [id number] Laboratory - Chemistry and C hemistry - challengeon 10-30-2023 Glucose Ql (U) Negative [facility] - Urinalysison Protein Ql (U) Negative [facility] - Chemistry and C hemistry - challengeon 10-18-2023 Glucose Ql (U) Negative [facility] - Urinalysison Protein Ql (U) Negative [facility] - Chemistry and C hemistry - challengeon 10-04-2023 Glucose Ql (U) Negative [facility] - Urinalysison Protein Ql (U) Negative [facility] Cobalaminson 09-30-2023 Cobalamin (Vitamin B12) [Mass/Vol] 162 pg/mL Low 211-911 [facility] Comment on above: Performed By: #### 2 132-9 #### DIEGO GARCIA ([id number]) [facility] ([facility]) [facility] [place] [address] Comprehensive metabolic 2000 panelon 09-30-2023 Albumin BCP dye [Mass/Vol] 3.4 g/dL Normal 3.4-5.0 [facility] Comment on above: Performed By: #### 2 4323-8 #### DIEGO GARCIA ([id number]) [facility] ([facility]) [address] [place] [address] ALP [Catalytic activity/Vol] 96 U/L Normal 33-110 [facility] Comment on above: Performed By: #### 2 4323-8 #### DIEGO GARCIA ([id number]) [facility] ([facility]) [address] [place] [address] ALT With P-5'-P [Catalytic activity/Vol] 11 U/L Normal 7-45 [facility] Comment on above: Result Comment: Rosalva ents treated with Sulfasalazine may generate falsely decreased results for ALT. Performed By: #### 2 4323-8 #### DIEGO GARCIA ([id number]) [facility] ([facility]) [address] [place] [address] Anion gap [Moles/Vol] 11 mmol/L Normal 10-20 [facility] Comment on above: Performed By: #### 2 4323-8 #### DIEGO GARCIA ([id number]) [facility] ([facility]) [address] [place] [address] 208[address] AST With P-5'-P [Catalytic activity/Vol] 13 U/L Normal 9-39 [facility] Comment on above: Performed By: #### 2 4323-8 #### DIEGO GARCIA ([id number]) [facility] ([facility]) [address] [place] [address] Bilirubin [Mass/Vol] 0.4 mg/dL Normal 0.0-1.2 [facility] Comment on above: Performed By: #### 2 4323-8 #### DIEGO GARCIA ([id number]) [facility] ([facility]) [address] [place] [address] Calcium [Mass/Vol] 8.9 mg/dL Normal 8.6-10.3 [facility] Comment on above: Performed By: #### 2 4323-8 #### DIEGO GARCIA ([id number]) [facility] ([facility]) [address] [place] [address] Chloride [Moles/Vol] 106 mmol/L Normal 98-107 [facility] Comment on above: Performed By: #### 2 4323-8 #### DIEGO GARCIA ([id number]) [facility] ([facility]) [address] [place] [address] CO2 [Moles/Vol] 26 mmol/L Normal 21-32 [facility] Comment on above: Performed By: #### 2 4323-8 #### DIEGO GARCIA ([id number]) [facility] ([facility]) [address] [place] [address] Creatinine [Mass/Vol] 0.55 mg/dL Normal 0.50-1.05 [facility] Comment on above: Performed By: #### 2 4323-8 #### DIEGO GARCIA ([id number]) [facility] ([facility]) [address] [place] [address]782 GFR/1.73 sq M.predicted MDRD (S/P/Bld) [Vol rate/Area] mL/min/{1.73_m2} Normal >60 [facility] Comment on above: Result Comment: Calc ulations of estimated GFR are performed using the 2020 CKD-EPI Study Refit equation without the race variable for the IDMS-Traceable creatinine methods. https://jasn.asnjournals.org/content/early/ASN.2020 521110 Performed By: #### 2 4323-8 #### DIEGO GARCIA ([id number]) [facility] ([facility]) [address] [place] [address] Glucose [Mass/Vol] 86 mg/dL Normal 74-99 [facility] Comment on above: Performed By: #### 2 4323-8 #### DIEGO GARCIA ([id number]) [facility] ([facility]) [address] [place] [address] Potassium [Moles/Vol] 3.6 mmol/L Normal 3.5-5.3 [facility] Comment on above: Performed By: #### 2 4323-8 #### DIEGO GARCIA ([id number]) [facility] ([facility]) [address] [place] [address]65 Protein [Mass/Vol] 5.9 g/dL Low 6.4-8.2 [facility] Comment on above: Performed By: #### 2 4323-8 #### DIEGO GARCIA ([id number]) [facility] ([facility]) [address] [place] [address]71 Sodium [Moles/Vol] 139 mmol/L Normal 136-145 [facility] Comment on above: Performed By: #### 2 4323-8 #### DIEGO GARCIA ([id number]) [facility] ([facility]) [address] [place] [address]1823 Urea nitrogen [Mass/Vol] 5 mg/dL Low 6-23 [facility] Comment on above: Performed By: #### 2 4323-8 #### DIEGO GARCIA ([id number]) [facility] ([facility]) [address] [place] [address]45[address] HbA1c (Bld) [Mass fraction]o n 09-30-2023 Average glucose Estimated from glycated hemoglobin (Bld) [Mass/Vol] 91 mg/dL Normal Not Established [facility] Comment on above: Order Comment: Diagn osis of Diabetes-Adults Non-Diabetic: < or = 5.6% Increased risk for developing diabetes: 5.7-6.4% Diagnostic of diabetes: > or = 6.5% Monitoring of Diabetes Age (y)....................... Therapeutic Goal (%) Adults: >18.........................<7.0 Pediatrics: 13-18...................<7.5 Pediatrics: 7-12....................<8.0 Pediatrics: 0-6..................... 7.5-8.5 [employer] [place]. Diabetes Care 33(S1)Jul 2009 Performed By: #### 4 548-4 #### SUSANA Hernandez ([id number]) [facility] ([facility]) [address] [place] [address] Hemoglobin A1c/Hemoglobin.to david 09-30-2023 HbA1c (Bld) [Mass fraction] 4.8 % Normal see below [facility] Comment on above: Order Comment: Diagn osis of Diabetes-Adults Non-Diabetic: < or = 5.6% Increased risk for developing diabetes: 5.7-6.4% Diagnostic of diabetes: > or = 6.5% Monitoring of Diabetes Age (y)....................... Therapeutic Goal (%) Adults: >18.........................<7.0 Pediatrics: 13-18...................<7.5 Pediatrics: 7-12....................<8.0 Pediatrics: 0-6..................... 7.5-8.5 [employer] [place]. Diabetes Care 33(S1)Jul 2009 Performed By: #### 4 548-4 #### SUSANA Hernandez ([id number]) [facility] ([facility]) [id number] [place], [place] [id number] Lipid 1996 panelon 4 Cholesterol [Mass/Vol] 318 mg/dL High 0-199 Un [facility] Comment on above: Result Comment: Age Desirable [...] By: #### 2 4331-1 #### DIEGO GARCIA ([id number]) [facility] ([facility]) [address] [place] [address]98[address] Cholesterol in HDL [Mass/Vol] 58.0 mg/dL Normal [facility] Comment on above: Result Comment: Age Very Low Low Normal High 0-19 Y < 35 < 40 40-45 ---- 20-24 Y ---- < 40 >45 ---- >24 Y ---- < 40 40-60 >60 Performed By: #### 2 4331-1 #### DIEGO GARCIA ([id number]) [facility] ([facility]) [address] [place] [address]28[address] Cholesterol in LDL [Mass/Vol] 195 mg/dL High <=99 [facility] Comment on above: Result Comment: Near Borderline AGE Desirable Optimal High High Very High 0-19 Y 0 - 109 --- 110-129 >/= 130 ---- 20-24 Y 0 - 119 --- 120-159 >/= 160 ---- >24 Y 0 - 99 100-129 130-159 160-189 >/=190 Performed By: #### 2 4331-1 #### DIEGO GARCIA ([id number]) [facility] ([facility]) [address] [place] [address] Cholesterol in VLDL [Mass/Vol] 65 mg/dL High 0-40 [facility] Comment on above: Performed By: #### 2 4331-1 #### DIEGO GARCIA ([id number]) [facility] ([facility]) [address] [place] [address] 26278 CHOLESTEROL/HDL RATIO 5.5 Normal [facility] Comment on above: Result Comment: Ref Values Desirable < 3.4 High Risk > 5.0 Performed By: #### 2 4331-1 #### DIEGO GARCIA ([id number]) [facility] ([facility]) [address] [place] [address] 60267 NON HDL CHOLESTEROL 260 mg/dL High 0-149 [facility] Comment on above: Result Comment: Age Desirable Borderline High High Very High 0-19 Y 0 - 119 120 - 144 >/= 145 >/= 160 20-24 Y 0 - 149 150 - 189 >/= 190 ---- >24 Y 30 mg/dL above LDL Cholesterol goal Performed By: #### 2 4331-1 #### DIEGO GARCIA ([id number]) [facility] ([facility]) [address] [place] [address] Triglyceride [Mass/Vol] 326 mg/dL High 0-149 [facility] Comment on above: Result Comment: Age Desirable [...] By: #### 2 4331-1 #### DIEGO GARCIA ([id number]) [facility] ([facility]) [address] [place] [address] 98040 Absolute lymphocyte countOrd ered By: Concepcion Kiser on 09-18-2023 Lymphocytes Auto (Unsp spec) [#/Vol] 1.33 10*3/uL 0.83-4.51 [facility] Automated lymphocyte count a s percentage of total leukocytesOrdered By: Concepcion Kiser on 09-18-2023 Lymphocytes/100 WBC Auto (Unsp spec) 17.1 % 19-41 [facility] Basophil percentageOrdered B y: Concepcion Kiser on 09-18-2023 Basophils/100 WBC (Bld) 0.3 % 0-1 [facility] Eosinophils/100 WBC (Bld) 1.0 % 0-5 [facility] Hemoglobin (Bld) [Mass/Vol] 11.0 g/dL 12.0-15.0 [facility] Monocytes/100 WBC (Bld) 6.2 % 0-10 [facility] Neutrophils (Bld) [#/Vol] 5.7 10*3/uL 2.0-7.7 [facility] Neutrophils/100 WBC (Bld) 74.0 % 47-70 [facility] WBC (Bld) [#/Vol] 7.8 10*3/uL 4.4-11.0 [facility] Determination of erythrocyte mean corpuscular volume (MCV)Ordered By: Concepcion Kiser on 09-18-2023 MCV (RBC) [Entitic vol] 90.9 fL 81-99 [facility] Erythrocyte distribution wid th ratioOrdered By: Concepcion Kiser on 09-18-2023 Erythrocyte distribution width (RBC) [Ratio] 12.8 % 11.6-14.6 [facility] Erythrocyte distribution wid th standard deviationOrdered By: Concepcion Kiser on 09-18-2023 Erythrocyte distribution width (RBC) [Entitic vol] 42.0 fL 35.1-43.9 [facility] Gestational diabetes screen 1-hour screen with 50g oral glucose loadOrdered By: Concepcion Kiser on 09-18-2023 Glucose 1 Hr post 50 g glucose PO [Mass/Vol] 109 mg/dL 70-140 [facility] HIV 1 and HIV-2 antibody ass ay with HIV-1 p24 antigen detectionOrdered By: Concepcion Kiser on 09-18-2023 HIV 1+2 Ab+HIV1 p24 Ag IA Ql Non-Reactive Nonreactive [facility] Hematocrit Auto (Bld) [Volum e fraction]Ordered By: Concepcion Kiser on 09-18-2023 Hematocrit (Bld) [Volume fraction] 32.8 % 37-47 [facility] Immature granulocytes/100 WB C Auto (Bld)Ordered By: Concepcion Kiser on 09-18-2023 Immature granulocytes/100 WBC (Bld) 1.400 % 0.0-0.9 [facility] Comment on above: IG% - Immature Granu locytes (promyelocytes, myelocytes and metamyelocytes) > 1% indicates that a LEFT SHIFT is Present. Laboratory - Chemistry and C hemistry - challengeon 09-18-2023 Glucose Ql (U) Negative [facility] Laboratory - Hematology and Cell countsOrdered By: Concepcion Kiser on 09-18-2023 MCH (RBC) [Entitic mass] 30.5 pg 27.0-32.0 [facility] MCHC (RBC) [Mass/Vol] 33.5 g/dL 32-36 [facility] Nucleated RBC/100 WBC (Bld) [Ratio] 0 % 0-5 [facility] Platelet mean volume (Bld) [Entitic vol] 11.5 fL 6.2-12.0 [facility] Platelets (Bld) [#/Vol] 171 10*3/uL 150-450 [facility] Laboratory - Urinalysison Protein Ql (U) Negative [facility] RBC Auto (Bld) [#/Vol]Ordere d By: Concepcion Kiser on 09-18-2023 RBC (Bld) [#/Vol] 3.61 10*6/uL 4.2-5.4 [facility] Serum Treponema species anti body detectionOrdered By: Concepcion Kiser on 09-18-2023 Treponema sp Ab Ql (S) Non-Reactive [facility] Laboratory - Chemistry and C hemistry - challengeon 08-21-2023 Glucose Ql (U) Negative [facility] Laboratory - Urinalysison Protein Ql (U) Negative [facility] Laboratory - Chemistry and C hemistry - challengeon 07-28-2023 Glucose Ql (U) Negative [facility] Laboratory - Urinalysison Protein Ql (U) Negative [facility] Laboratory - Chemistry and C hemistry - challengeon 06-28-2023 Glucose Ql (U) Negative [facility] Laboratory - Urinalysison Protein Ql (U) Negative [facility] No Panel InformationOrdered By: Mariely Arriaga on 05-22-2023 Miscellaneous Test Comment MAILED SPECIMEN [facility] Absolute lymphocyte countOrd ered By: Mariely Arriaga on 05-20-2023 Lymphocytes Auto (Unsp spec) [#/Vol] 1.64 10*3/uL 0.83-4.51 [facility] Basophil percentageOrdered B y: Mariely Arriaga on 05-20-2023 Basophils/100 WBC (Bld) 0.3 % 0-1 [facility] Bilirubin [Mass/Vol] 0.40 mg/dL 0.20-1.00 [facility] Comment on above: For patients on eltr ombopag therapy, use of Dimension [place]erg[place] TBIL is not recommended. Chloride [Moles/Vol] 107 mmol/L 98-107 [facility] Eosinophils/100 WBC (Bld) 0.9 % 0-5 [facility] Glucose [Mass/Vol] 88 mg/dL 74-106 [facility] Neutrophils (Bld) [#/Vol] 4.3 10*3/uL 2.0-7.7 [facility] Neutrophils/100 WBC (Bld) 65.6 % 47-70 [facility] Potassium [Moles/Vol] 4.3 mmol/L 3.5-5.1 [facility] Protein [Mass/Vol] 7.6 g/dL 6.4-8.2 [facility] Sodium [Moles/Vol] 137 mmol/L 136-145 [facility] WBC (Bld) [#/Vol] 6.5 10*3/uL 4.4-11.0 [facility] Blood erythrocytes count (nu mber/volume)Ordered By: Mariely Arriaga on 05-20-2023 RBC (Bld) [#/Vol] 4.68 10*6/uL 4.2-5.4 [facility] Blood hemoglobin measurement (mass/volume)Ordered By: Mariely Arriaga on 05-20-2023 Hemoglobin (Bld) [Mass/Vol] 13.7 g/dL 12.0-15.0 [facility] Blood lymphocytes/100 leukoc ytesOrdered By: Mariely Arriaga on 05-20-2023 Lymphocytes/100 WBC (Bld) 25.3 % 19-41 [facility] Blood monocytes/100 leukocyt esOrdered By: Mariely Arriaga on 05-20-2023 Monocytes/100 WBC (Bld) 7.6 % 0-10 [facility] Blood platelet mean volumeOr dered By: Mariely Arriaga on 05-20-2023 Platelet mean volume (Bld) [Entitic vol] 11.3 fL 6.2-12.0 [facility] Determination of erythrocyte mean corpuscular volume (MCV)Ordered By: Mariely Arriaga on 05-20-2023 MCV (RBC) [Entitic vol] 89.5 fL 81-99 [facility] HIV 1 and HIV-2 antibody ass ay with HIV-1 p24 antigen detectionOrdered By: Mariely Arriaga on 05-20-2023 HIV 1+2 Ab+HIV1 p24 Ag IA Ql Non-Reactive Nonreactive [facility] Hematocrit Auto (Bld) [Volum e fraction]Ordered By: Mariely Arriaga on 05-20-2023 Hematocrit (Bld) [Volume fraction] 41.9 % 37-47 [facility] Laboratory - Chemistry and C hemistry - challengeOrdered By: Mariely Arriaga on 05-20-2023 ALP [Catalytic activity/Vol] 54 U/L 45-117 [facility] ALT [Catalytic activity/Vol] 20 U/L 13-56 [facility] CO2 [Moles/Vol] 25.0 mmol/L 21.0-32.0 [facility] Cobalamin (Vitamin B12) [Mass/Vol] 307 pg/mL 211-911 [facility] Globulin (S) [Mass/Vol] 3.8 g/dL 2.2-4.2 [facility] Urea nitrogen/Creatinine [Mass ratio] 15.3 mg/mg 10-20 [facility] - Hematology and Cell countsOrdered By: Mariely Arriaga on 05-20-2023 Erythrocyte distribution width (RBC) [Entitic vol] 41.4 fL 35.1-43.9 [facility] Erythrocyte distribution width (RBC) [Ratio] 12.8 % 11.6-14.6 [facility] Immature granulocytes/100 WBC (Bld) 0.300 % 0.0-0.9 [facility] Comment on above: IG% - Immature Granu locytes (promyelocytes, myelocytes and metamyelocytes) > 1% indicates that a LEFT SHIFT is Present. MCH (RBC) [Entitic mass] 29.3 pg 27.0-32.0 [facility] Nucleated RBC/100 WBC (Bld) [Ratio] 0 % 0-5 [facility] MCHC Auto (RBC) [Mass/Vol]Or dered By: Mariely Arriaga on 05-20-2023 MCHC (RBC) [Mass/Vol] 32.7 g/dL 32-36 [facility] No Panel InformationOrdered By: Mariely Arriaga on 05-20-2023 Estimated GFR (MDRD) Amer 139 mL/min >60 [facility] Comment on above: GFR Calc Estimated GFR (MDRD) Non-Af Amer 115 mL/min >60 [facility] Comment on above: Non- GFR Calc Hepatitis B Surface Antigen Non-Reactive Nonreactive [facility] Hepatitis C Antibody Non-Reactive Nonreactive [facility] Comment on above: Non Reactive: < 0.8 Equivocal: >/= 0.8 to < 1.0 Reactive: >/= 1.0The CDC recommends that a reactive/equivocal HCV antibody result be followed up by the HCV Nucleic Acid Amplificationtest (835898) Rubella IgG Antibody Reactive Nonreactive [facility] Comment on above: Antibody Results Int erpretation of Immune Status Non Reactive Presumed Non-Immune Equivocal Equivocal Reactive Presumed Immune Platelets bldOrdered By: Ericka Arriaga on 05-20-2023 Platelets (Bld) [#/Vol] 168 10*3/uL 150-450 [facility] Serum Treponema species anti body detectionOrdered By: Mariely Arriaga on 05-20-2023 Treponema sp Ab Ql (S) Non-Reactive [facility] Serum or plasma albumin jennyfer urement (mass/volume)Ordered By: Mariely Arriaga on 05-20-2023 Albumin [Mass/Vol] 3.8 g/dL 3.2-5.0 [facility] Serum or plasma albumin/glob ulin mass ratioOrdered By: Mariely Arriaga on 05-20-2023 Albumin/Globulin [Mass ratio] 1.0 {ratio} 0.9-2.4 [facility] Serum or plasma calcium jennyfer urement (mass/volume)Ordered By: Mariely Arriaga on 05-20-2023 Calcium [Mass/Vol] 9.1 mg/dL 8.5-10.1 [facility] Serum or plasma creatinine m easurement (mass/volume)Ordered By: Mariely Arriaga on 05-20-2023 Creatinine [Mass/Vol] 0.65 mg/dL 0.55-1.02 [facility] Comment on above: The validity of the calculated GFR & GFRAA in patients over 70 years has not been determined. Clinical correlation is essential. Serum or plasma urea nitroge n measurement (mass/volume)Ordered By: Mariely Arriaga on 05-20-2023 Urea nitrogen [Mass/Vol] 10 mg/dL 7-18 [facility] Thin prep Papanicolaou smear with manual screeningOrdered By: Mariely Arriaga on 05-20-2023 Thin prep Papanicolaou smear with manual screening 14 U/L 15-37 [facility] Thin prep Papanicolaou smear with manual screening 5 5-15 [facility] Culture, urineOrdered By: Kristian Arriaga on 04-29-2023 Bacteria identified Cx Nom (U) Culture exhibits no growth. [facility] Chlamydia trachomatis rRNA d etection by probe and target amplification methodOrdered By: Mariely Arriaga on 04-28-2023 C. trachomatis rRNA CARMEN+probe Ql (Unsp spec) Negative Negative [facility] - Microbiology an d Antimicrobial susceptibilityOrdered By: Mariely Arriaga on 04-28-2023 N. gonorrhoeae DNA CARMEN+probe Ql (Unsp spec) Negative Negative [facility] Comment on above: Performed at: =[address] [id number] Director: Yu Martin MD, Phone: [phone] Urine creatinine measurement (mass/volume)Ordered By: Mariely Arriaga on 04-28-2023 Creatinine (U) [Mass/Vol] 85.40 mg/dL NO RANGE EST. [facility] Urine protein measurement (m ass/volume)Ordered By: Mariely Arriaga on 04-28-2023 Protein (U) [Mass/Vol] 12.4 mg/dL 0.0-11.8 [facility] Urine protein/creatinine mas s ratioOrdered By: Mariely Arriaga on 04-28-2023 Protein/Creatinine (U) [Mass ratio] 145 mg/g CRE 0-200 [facility] Serum or plasma choriogonado tropin detectionOrdered By: Jyothi Lacey on 04-05-2023 HCG ( test) Ql 252 mIU/mL <4 [facility] Comment on above: hCG levels with Gest ational AgeGestational Age hCG mIU/mL (IU/L)0.2 - 1 week 5 - 501-2 weeks 50 - 5002-3 weeks 100 - 86691-7 weeks 500 - 330200-9 weeks 1000 - 473461-7 weeks 54806 - 100,0006-8 weeks 92327 - 200,0002-3 months 17320 - 100,000 Serum or plasma choriogonado tropin detectionOrdered By: Jyothi Lacey on 04-03-2023 HCG ( test) Ql 80 mIU/mL <4 [facility] Comment on above: hCG levels with Gest ational AgeGestational Age hCG mIU/mL (IU/L)0.2 - 1 week 5 - 501-2 weeks 50 - 5002-3 weeks 100 - 94338-9 weeks 500 - 040942-7 weeks 1000 - 084191-8 weeks 34772 - 100,0006-8 weeks 55941 - 200,0002-3 months 25617 - 100,000 CNOVon 03-03-2023 CNOV Office Visit (OBGYWM ) HANH DOLAN ([id number]) 1995 F Date Time Provider Department 03/03/23 1:30 PM BRUNA ANDRADE OBGYWM During your visit today, we recorded the following information about you: Blood pressure Weight Height 112/70 61.3 kg 1.6 m Bruna Andrade APRN.[employer] 03/03/2023 2:00 PM Signed Inspector Type offered: Patient declines. Hanh Dolan is a 27 year old female who presents To establish care. HPI: Patient presents today to establish care due to [facility] closing. She has an appointment with them to have her IUD removed on March 17 and wants to attempt . 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 Percent differential counts (%) should be interpreted in the context of the absolute cell counts (cells/L). Performed By: #### C BCDF #### [address] [address] Basophils (Bld) [#/Vol] 0.02 10*3/uL Normal 0.00 - 0.1 0 [facility] Comment on above: Performed By: #### C BCDF #### [address] [address] Basophils/100 WBC (Bld) 0.3 % Normal 0.0 - 2.0 [facility] Comment on above: Performed By: #### C BCDF #### [address] [address] Eosinophils (Bld) [#/Vol] 0.15 10*3/uL Normal 0.00 - 0.70 [facility] Comment on above: Performed By: #### C BCDF #### [address] [address] Eosinophils/100 WBC (Bld) 2.5 % Normal 0.0 - 6.0 [facility] Comment on above: Performed By: #### C BCDF #### [address] [address] Erythrocyte distribution width (RBC) [Ratio] 12.4 % Normal 11.5 - 14.5 [facility] Comment on above: Performed By: #### C BCDF #### [address] [address] Hematocrit (Bld) [Volume fraction] 44.2 % Normal 36.0 - 46.0 [facility] Comment on above: Performed By: #### C BCDF #### [address] [address] Hemoglobin (Bld) [Mass/Vol] 14.3 g/dL Normal 12.0 - 16.0 [facility] Comment on above: Performed By: #### C BCDF #### [address] [address] Lymphocytes (Bld) [#/Vol] 2.24 10*3/uL Normal 1.20 - 4.80 [facility] Comment on above: Performed By: #### C BCDF #### [address] [address] Lymphocytes/100 WBC (Bld) 37.5 % Normal 13.0 - 44.0 [facility] Comment on above: Performed By: #### C BCDF #### [address] [address] MCHC (RBC) [Mass/Vol] 32.4 g/dL Normal 32.0 - 36.0 [facility] Comment on above: Performed By: #### C BCDF #### [address] [address] MCV (RBC) [Entitic vol] 92 fL Normal 80 - 100 [facility] Comment on above: Performed By: #### C BCDF #### [address] [address] Monocytes (Bld) [#/Vol] 0.37 10*3/uL Normal 0.10 - 1.0 0 [facility] Comment on above: Performed By: #### C BCDF #### [address] [address] Monocytes/100 WBC (Bld) 6.2 % Normal 2.0 - 10.0 [facility] Comment on above: Performed By: #### C BCDF #### [address] [address] Neutrophils (Bld) [#/Vol] 3.18 10*3/uL Normal 1.20 - 7.70 [facility] Comment on above: Result Comment: Perc ent differential counts (%) should be interpreted in the context of the absolute cell counts (cells/L). Performed By: #### C BCDF #### [address] [address] Neutrophils/100 WBC (Bld) 53.3 % Normal 40.0 - 80.0 [facility] Comment on above: Performed By: #### C BCDF #### [address] [address] Platelets (Bld) [#/Vol] 201 10*3/uL Normal 150 - 450 [facility] Comment on above: Performed By: #### C BCDF #### [address] [address] RBC 4.80 x10E12/L Normal 4.00 - 5.20 [facility] Comment on above: Performed By: #### C BCDF #### [address] [address] WBC (Bld) [#/Vol] 6.0 10*3/uL Normal 4.4 - 11.3 [facility] Comment on above: Performed By: #### C BCDF #### [address] [address] COMPREHENSIVE PANELon 2022 Albumin [Mass/Vol] 4.7 g/dL Normal 3.4 - 5.0 [facility] Comment on above: Performed By: #### C MP #### [address] [address] ALP [Catalytic activity/Vol] 49 U/L Normal 33 - 110 [facility] Comment on above: Performed By: #### C MP #### [address] [address] ALT [Catalytic activity/Vol] 8 U/L Normal 7 - 45 [facility] Comment on above: Result Comment: Rosalva ents treated with Sulfasalazine may generate falsely decreased results for ALT. Performed By: #### C MP #### [address] [address] Anion gap [Moles/Vol] 9 mmol/L Low 10 - 20 [facility] Comment on above: Performed By: #### C MP #### [address] [address] AST [Catalytic activity/Vol] 12 U/L Normal 9 - 39 [facility] Comment on above: Performed By: #### C MP #### [address] [address] Bilirubin [Mass/Vol] 0.6 mg/dL Normal 0.0 - 1.2 [facility] Comment on above: Performed By: #### C MP #### [address] [address] Calcium [Mass/Vol] 9.3 mg/dL Normal 8.6 - 10.3 [facility] Comment on above: Performed By: #### C MP #### [address] [address] Chloride [Moles/Vol] 106 mmol/L Normal 98 - 107 [facility] Comment on above: Performed By: #### C MP #### [address] [address] Creatinine [Mass/Vol] 0.80 mg/dL Normal 0.50 - 1.05 [facility] Comment on above: Performed By: #### C MP #### [address] [address] eGFR FEMALE >90 Normal >90 [facility] Comment on above: Result Comment: CALC ULATIONS OF ESTIMATED GFR ARE PERFORMED USING THE 2020 CKD-EPI STUDY REFIT EQUATION WITHOUT THE RACE VARIABLE FOR THE IDMS-TRACEABLE CREATININE METHODS. https://jasn.asnjournals.org/content/early//ASN.2020 270283 Performed By: #### C MP #### [address] [address] Glucose [Mass/Vol] 73 mg/dL Low 74 - 99 [facility] Comment on above: Performed By: #### C MP #### [address] [address] HCO3 (Bld) [Moles/Vol] 29 mmol/L Normal 21 - 32 [facility] Comment on above: Performed By: #### C MP #### [address] [address] Potassium [Moles/Vol] 3.8 mmol/L Normal 3.5 - 5.3 [facility] Comment on above: Performed By: #### C MP #### [address] [address] Protein [Mass/Vol] 7.2 g/dL Normal 6.4 - 8.2 [facility] Comment on above: Performed By: #### C MP #### [address] [address] Sodium [Moles/Vol] 140 mmol/L Normal 136 - 145 [facility] Comment on above: Performed By: #### C MP #### [address] [address] Urea nitrogen [Mass/Vol] 9 mg/dL Normal 6 - 23 [facility] Comment on above: Performed By: #### C MP #### [place] [address] Lab Specimen Source Normal [facility] Comment on above: Performed By: #### C MP #### [place] [address] Performed By: #### C BCDF #### [place] [address] Performed By: #### T HYDS #### [place] [address] Performed By: #### V TB12 #### [place] [address] Performed By: #### V TDOH #### [place] [address] Performed By: #### I RONT #### [place] [address] Performed By: #### F ERRI #### [place] [address] FERRITINon 01-23-2023 FERRITIN 34 ug/L Normal 8 - 150 [facility] Comment on above: Performed By: #### F ERRI #### [place] [address] IRON + TIBCon 01-23-2023 % SATURATION 22 % Low 25 - 45 [facility] Comment on above: Performed By: #### I RONT #### [place] [address] Iron [Mass/Vol] 78 ug/dL Normal 35 - 150 [facility] Comment on above: Performed By: #### I RONT #### [place] [address] TIBC 348 ug/dL Normal 240 - 445 [facility] Comment on above: Performed By: #### I RONT #### [place] [address] TSH WITH REFLEX TO FREE T4 I F ABNORMALon 01-23-2023 TSH Qn 1.35 m[IU]/L Normal 0.44 - 3.98 [facility] Comment on above: Result Comment: TSH testing is performed using different testing methodology at [facility] than at other [facility]. Direct result comparisons should only be made within the same method. Performed By: #### T HYDS #### [address] [address] VITAMIN B12on 01-23-2023 Cobalamin (Vitamin B12) [Mass/Vol] 152 pg/mL Low 211 - 911 [facility] Comment on above: Performed By: #### V TB12 #### [address] [address] VITAMIN D, 25-HYDROXYon 01-01 VITAMIN D, 25-HYDROXY 33 ng/mL Normal [facility] Comment on above: Result Comment: . DEFICIENCY: < 20 NG/ML INSUFFICIENCY: 20-29 NG/ML SUFFICIENCY: 30-100 NG/ML THIS ASSAY ACCURATELY QUANTIFIES THE SUM OF VITAMIN D3, 25-HYDROXY AND VIT D2,25-HYDROXY. Performed By: #### V TDOH #### [address] [address] Blood Pressure Cuff Sizeon 0 08-08-2022 Fall risk assessment a) No falls within the last year [facility] Work Phone: Tobacco use status [facility] b) No [facility] Work Phone: Blood Pressure Cuff Size Adult [facility] Work Phone: Office Visit (Internal Medic ine)on 08-08-2022 Follow-up visit Diagnoses/Problems Health Maintenance/Risks Encounter for preventive health examination (V70.0) (Z00.00) Assessed Anxiety (300.00) (F41.9) Orders Anxiety Renew: buPROPion HCl ER (SR) 150 MG Oral Tablet Extended Release 12 Hour; Take 1 tablet twice daily Rx By: Hanh Madrigal; Dispense: 90 Days ; #:180 Tablet; Refill: 3;For: Anxiety; GREGORY = N; Sent To: [facility]; Last Updated By: Chiquita Pacheco; 08/08/2022 9:08:43 AM Provider Impressions Immunizations: Influenza Vaccine: 2021 Prevnar 13 Vaccine -- Pneumovax 23 Vaccine -- Shingrix Vaccine:-- COVID: declines Health Maintenance: Breast Cancer screening: -- Bone Density: -- Cervical Cancer Screenin/22, sees Dr Alba Mar in [place] Colon Cancer Screening -- 1. Reviewed bloodwork [...] tablet twice daily Vitals Vital Signs Recorded: [id number] 09:05AM Heart Rate69 Ykvzewdu374 Jskezbxoh95 Blood Pressure Cuff SizeAdult Height5 ft 3 in Lfmndc273 lb BMI Qrbxtrompl49.32 kg/m2 BSA Calculated1.59 Tobacco Useb) No Falls [...] affect: Normal. (more content not included)... Normal [facility] CBC AND DIFFERENTIALon 02-07 Basophils (Bld) [#/Vol] 0.00 10*3/uL Normal 0.00 - 0.1 0 [facility] Comment on above: Performed By: #### C BCDF #### [address] [address] Basophils/100 WBC (Bld) 0.3 % Normal 0.0 - 2.0 [facility] Comment on above: Performed By: #### C BCDF #### [address] [address] Eosinophils (Bld) [#/Vol] 0.10 10*3/uL Normal 0.00 - 0.70 [facility] Comment on above: Performed By: #### C BCDF #### [address] [address] Eosinophils/100 WBC (Bld) 2.5 % Normal 0.0 - 6.0 [facility] Comment on above: Performed By: #### C BCDF #### [address] [address] Erythrocyte distribution width (RBC) [Ratio] 13.3 % Normal 11.5 - 14.5 [facility] Comment on above: Performed By: #### C BCDF #### [address] [address] Hematocrit (Bld) [Volume fraction] 42.4 % Normal 36.0 - 46.0 [facility] Comment on above: Performed By: #### C BCDF #### [address] [address] Hemoglobin (Bld) [Mass/Vol] 14.6 g/dL Normal 12.0 - 16.0 [facility] Comment on above: Performed By: #### C BCDF #### [address] [address] Lymphocytes (Bld) [#/Vol] 2.00 10*3/uL Normal 1.20 - 4.80 [facility] Comment on above: Performed By: #### C BCDF #### [address] [address] Lymphocytes/100 WBC (Bld) 43.4 % Normal 13.0 - 44.0 [facility] Comment on above: Performed By: #### C BCDF #### [address] [address] MCHC (RBC) [Mass/Vol] 34.4 g/dL Normal 32.0 - 36.0 [facility] Comment on above: Performed By: #### C BCDF #### [address] [address] MCV (RBC) [Entitic vol] 88 fL Normal 80 - 100 [facility] Comment on above: Performed By: #### C BCDF #### [address] [address] Monocytes (Bld) [#/Vol] 0.40 10*3/uL Normal 0.10 - 1.0 0 [facility] Comment on above: Performed By: #### C BCDF #### [address] [address] Monocytes/100 WBC (Bld) 7.7 % Normal 2.0 - 10.0 [facility] Comment on above: Performed By: #### C BCDF #### [address] [address] Neutrophils (Bld) [#/Vol] 2.10 10*3/uL Normal 1.20 - 7.70 [facility] Comment on above: Result Comment: Perc ent differential counts (%) should be interpreted in the context of the absolute cell counts (cells/L). Performed By: #### C BCDF #### [address] [address] Neutrophils/100 WBC (Bld) 46.1 % Normal 40.0 - 80.0 [facility] Comment on above: Performed By: #### C BCDF #### [address] [address] NUCLEATED RBC 0.1 /100 WBC Normal [facility] Comment on above: Performed By: #### C BCDF #### [address] [address] Platelets (Bld) [#/Vol] 173 10*3/uL Normal 150 - 450 [facility] Comment on above: Performed By: #### C BCDF #### [address] [address] RBC 4.84 x10E12/L Normal 4.00 - 5.20 [facility] Comment on above: Performed By: #### C BCDF #### [address] [address] WBC (Bld) [#/Vol] 4.6 10*3/uL Normal 4.4 - 11.3 [facility] Comment on above: Performed By: #### C BCDF #### [address] [address] COMPREHENSIVE PANELon 2021 Albumin [Mass/Vol] 4.7 g/dL Normal 3.4 - 5.0 [facility] Comment on above: Performed By: #### C MP #### [address] [address] ALP [Catalytic activity/Vol] 41 U/L Normal 33 - 110 [facility] Comment on above: Performed By: #### C MP #### [address] [address] ALT [Catalytic activity/Vol] 16 U/L Normal 7 - 45 [facility] Comment on above: Result Comment: Rosalva ents treated with Sulfasalazine may generate falsely decreased results for ALT. Performed By: #### C MP #### [address] [address] Anion gap [Moles/Vol] 12 mmol/L Normal 10 - 20 [facility] Comment on above: Performed By: #### C MP #### [address] [address] AST [Catalytic activity/Vol] 17 U/L Normal 9 - 39 [facility] Comment on above: Performed By: #### C MP #### [address] [address] Bilirubin [Mass/Vol] 0.8 mg/dL Normal 0.0 - 1.2 [facility] Comment on above: Performed By: #### C MP #### [address] [address] Calcium [Mass/Vol] 9.6 mg/dL Normal 8.6 - 10.3 [facility] Comment on above: Performed By: #### C MP #### [address] [address] Chloride [Moles/Vol] 104 mmol/L Normal 98 - 107 [facility] Comment on above: Performed By: #### C MP #### [address] [address] Creatinine [Mass/Vol] 0.87 mg/dL Normal 0.50 - 1.05 [facility] Comment on above: Performed By: #### C MP #### [address] [address] eGFR FEMALE >90 Normal >90 [facility] Comment on above: Result Comment: CALC ULATIONS OF ESTIMATED GFR ARE PERFORMED USING THE 2020 CKD-EPI STUDY REFIT EQUATION WITHOUT THE RACE VARIABLE FOR THE IDMS-TRACEABLE CREATININE METHODS. https://jasn.asnjournals.org/content/early//ASN.2020 300404 Performed By: #### C MP #### [address] [address] Glucose [Mass/Vol] 81 mg/dL Normal 74 - 99 [facility] Comment on above: Performed By: #### C MP #### [address] [address] HCO3 (Bld) [Moles/Vol] 26 mmol/L Normal 21 - 32 [facility] Comment on above: Performed By: #### C MP #### [address] [address] Potassium [Moles/Vol] 4.2 mmol/L Normal 3.5 - 5.3 [facility] Comment on above: Performed By: #### C MP #### [address] [address] Protein [Mass/Vol] 7.7 g/dL Normal 6.4 - 8.2 [facility] Comment on above: Performed By: #### C MP #### [address] [address] Sodium [Moles/Vol] 138 mmol/L Normal 136 - 145 [facility] Comment on above: Performed By: #### C MP #### [address] [address] Urea nitrogen [Mass/Vol] 13 mg/dL Normal 6 - 23 [facility] Comment on above: Performed By: #### C MP #### [address] [address] IRON + TIBCon 02-07-2022 % SATURATION 37 % Normal 25 - 45 [facility] Comment on above: Performed By: #### I JOSE A #### [address] [address] Iron [Mass/Vol] 135 ug/dL Normal 35 - 150 [facility] Comment on above: Performed By: #### Alan NARANJO #### [address] [address] TIBC 367 ug/dL Normal 240 - 445 [facility] Comment on above: Performed By: #### I RONT #### [address] [address] Office Visit (Internal Medic ine)on 02-07-2022 Follow-up [...] tablet twice daily Vitals Vital Signs Recorded: [id number] 09:03AM Heart Rate91 Oxhzvcpe897 Gyfkdpqyp02 Blood Pressure Cuff SizeAdult Height5 ft 3 in Janzyb427 lb BMI Vyinbnnftk04.85 kg/m2 BSA Calculated1.6 Tobacco Useb) No PHQ-2 [...] breath sound (more content not included)... Normal [facility] TSH WITH REFLEX TO FREE T4 I F ABNORMALon 02-07-2022 TSH Qn 1.61 m[IU]/L Normal 0.44 - 3.98 [facility] Comment on above: Result Comment: TSH testing is performed using different testing methodology at [facility] than at other [facility]. Direct result comparisons should only be made within the same method. Performed By: #### T HYDS #### [address] [address] VITAMIN B12on 02-07-2022 Cobalamin (Vitamin B12) [Mass/Vol] 180 pg/mL Low 211 - 911 [facility] Comment on above: Performed By: #### V TB12 #### [address] [address] VITAMIN D, 25-HYDROXYon VITAMIN D, 25-HYDROXY 32 ng/mL Normal [facility] Comment on above: Result Comment: . DEFICIENCY: < 20 NG/ML INSUFFICIENCY: 20-29 NG/ML SUFFICIENCY: 30-100 NG/ML THIS ASSAY ACCURATELY QUANTIFIES THE SUM OF VITAMIN D3, 25-HYDROXY AND VIT D2,25-HYDROXY. Performed By: #### V TDOH #### [address] [address] Cervical or vagninal specime n microscopic examination by cytology stain (reported ason 09-28-2021 Cytology report Cyto stain Doc (Cvx/Vag) Comment [facility] Work Phone: Comment on above: The [...] rRNA CARMEN+probe Ql (Unsp spec) Negative Negative [facility] Work Phone: Laboratory - Cytologyon 09-01 [employer] Cyto stain Nom (Cvx/Vag) [ID] Comment [facility] Work Phone: Comment on above: Nubia Thomas, Cytotec hnologist (ASCP) Laboratory - Microbiology an d Antimicrobial susceptibilityon 09-28-2021 N. gonorrhoeae DNA CARMEN+probe Ql (Unsp spec) Negative Negative [facility] Work Phone: Comment on above: Performed at: G - L [address] [id number] Director: Yu Martin MD, Phone: [phone] Laboratory - Miscellaneous t estson 09-28-2021 Service comment (Unsp spec) [Interp] Comment [facility] Work Phone: Comment on above: This liquid based Th inPrep(R) pap test was screened withthe use of an image guided system. Service comment (Unsp spec) [Interp] . [facility] Work Phone: No Panel Informationon 09-28 Human Papillomavirus Screen Comment [facility] Work Phone: Comment on above: The HPV DNA reflex c kendra were not met with this specimenresult therefore, no HPV testing was performed.Performed at: - [facility] [id number] Director: Yu Martin MD, Phone: [phone] Pathology report final diagnosis Narrative Comment [facility] Work Phone: Comment on above: NEGATIVE FOR INTRAEP ITHELIAL LESION OR MALIGNANCY.THIS SPECIMEN WAS RESCREENED PART OF OUR TRANSFER STATION ATTENDANT PROGRAM. Office Visit (Internal Medic ine)on 08-23-2021 Follow-up visit Diagnoses/Problems Assessed Anxiety (300.00) (F41.9) Orders Anxiety Renew: buPROPion HCl ER (SR) 150 MG Oral Tablet Extended Release 12 Hour; Take 1 tablet twice daily Rx By: Hanh Madrigal; Dispense: 90 Days ; #:180 Tablet; Refill: 3;For: Anxiety; GREGORY = N; Verified Transmission to [facility]; Last Updated By: Paulino Roe; 08/23/2021 9:50:36 AM Provider Impressions 1. Anxiety, [...] tablet twice daily Vitals Vital Signs Recorded: [id number] 09:20AM Bpldspstahf56.3 F, Temporal Heart Rate89 Apxhlbiq795 Nlmgkrlye96 Blood Pressure Cuff SizeAdult Height5 ft 3 in Bsnejp808 lb BMI Hqyahdkzdn73.79 kg/m2 BSA Calculated1.57 Tobacco Useb) No PHQ-2 [...] Aug 23 2021 1:15PM EST (Author) Normal [facility] Blood Pressure Cuff Sizeon 1 Fall risk assessment a) No falls within the last year [facility] Work Phone: Tobacco use status [facility] b) No [facility] Work Phone: Blood Pressure Cuff Size Adult [facility] Work Phone: COVID-19, Molecularon 2020 Interpretation and review of laboratory results Normal [facility] SARS-CoV-2 Not Detected Not Detected [facility] Comment on above: This test was perfor med under the FDA's Emergency Use Authorization (EUA). Testing was performed using the im3D ID NOW COVID-19 assay on the ID NOW platform. This test has not been approved for use in asymptomatic patients and its performance in this patient population has not been evaluated. Negative results do not rule out the presence of SARS-CoV-2/COVID-19. Fact sheets for the EUA can be found at the following links: For Healthcare Providers: https://www.fda.gov/media/709549/download For Patients: https://www.fda.gov/media/345456/download ABO/Rhon 07-02-2020 ABO and Rh group Nom (Bld) O Positive [facility] CBC WITH AUTO DIFFERENTIALon 07-02-2020 Basophils (Bld) [#/Vol] 0.02 10*3/uL [facility] Basophils/100 WBC (Bld) 0.4 % [facility] Eosinophils (Bld) [#/Vol] 0.08 10*3/uL [facility] Eosinophils/100 WBC (Bld) 1.4 % [facility] Erythrocyte distribution width (RBC) [Entitic vol] 13.5 % 11.6 - 14.8 % [facility] Hematocrit (Bld) [Volume fraction] 43.8 % 36 - 46 % [facility] Hemoglobin (Bld) [Mass/Vol] 14.1 g/dL 12 - 16 g/dL [facility] Immature granulocytes (Bld) [#/Vol] 0.02 10*3/uL [facility] Immature granulocytes/100 WBC (Bld) 0.40 % [facility] Comment on above: The IG parameter is the percentage of metamyelocytes, myelocytes and promyelocytes. An immature granulocyte count (IG) of 1% or more suggests the possibility of infection, an IG count of 3% is very likely related to an infection. Lymphocytes (Bld) [#/Vol] 2.03 10*3/uL [facility] Lymphocytes/100 WBC (Bld) 36.3 % [facility] MCH (RBC) [Entitic mass] 28.0 pg 26 - 34 pg [facility] MCHC (RBC) [Mass/Vol] 32.2 g/dL 31 - 37 g/dL [facility] MCV (RBC) [Entitic vol] 86.9 fL 80 - 100 fL [facility] Monocytes (Bld) [#/Vol] 0.37 10*3/uL [facility] Monocytes/100 WBC (Bld) 6.6 % [facility] Neutrophils (Bld) [#/Vol] 3.07 10*3/uL [facility] Neutrophils/100 WBC (Bld) 54.9 % [facility] Nucleated RBC (Bld) [#/Vol] 0.00 10*3/uL [facility] Nucleated RBC/100 WBC (Bld) [Ratio] 0.0 % [facility] Platelet mean volume (Bld) [Entitic vol] 11.1 fL 9.4 - 12.4 fL [facility] Platelets (Bld) [#/Vol] 163 10*3/uL [facility] RBC (Bld) [#/Vol] 5.04 10*6/uL [facility] eah WBC (Bld) [#/Vol] 5.59 10*3/uL [facility] Chem 7on 07-02-2020 Anion gap [Moles/Vol] 11 mmol/L 10 - 2 0 mmol/L [facility] Chloride [Moles/Vol] 109 mmol/L High 98 - 10 8 mmol/L [facility] Creatinine [Mass/Vol] 0.92 mg/dL 0.40 - 1.10 [facility] GFR/1.73 sq M predicted among non-blacks MDRD (S/P/Bld) [Vol rate/Area] The eGFR should be used for monitoring renal function only and not for medication dosing. [facility] GFR/1.73 sq M.predicted CKD-EPI (S/P/Bld) [Vol rate/Area] 87 >=60 mL/min/1.73 m2 [facility] Glucose [Mass/Vol] 90 mg/dL 65 - 99 mg/dL [facility] HCO3 [Moles/Vol] 22 mmol/L 21 - 32 mmol/L [facility] Potassium [Moles/Vol] 3.8 mmol/L 3.5 - 5.1 mmol/L [facility] Sodium [Moles/Vol] 138 mmol/L 135 - 145 mmol/L [facility] Urea nitrogen [Mass/Vol] 16 mg/dL 8 - 25 mg/dL [facility] Urea nitrogen/Creatinine [Mass ratio] 17.4 mg/mg [facility] HCG (QUANTITATIVE)on 020 Beta HCG ( test) Ql (U) Males and non females: <5 mIU/mL Females during : 3-4 weeks 9-130 mIU/mL 4-5 weeks 75-2600 mIU/mL 5-6 weeks 850-20,800 mIU/mL 6-7 weeks 4000-100,200 mIU/mL 7-12 weeks 11,500-289,000 mIU/mL 12-16 weeks 18,300-137,000 mIU/mL 16-29 weeks 1,400-53,000 mIU/mL 29-41 weeks 940-60,000 mIU/mL [facility] HCG Qn 1073 m[IU]/mL High [facility] Interpretation and review of laboratory results Abnormal [facility] Hepatic Function Panel (LFT) on 07-02-2020 Albumin [Mass/Vol] 4.4 g/dL 3.2 - 5.2 g/dL [facility] ALP [Catalytic activity/Vol] 65 U/L 40 - 140 U/L [facility] ALT [Catalytic activity/Vol] 14 U/L 14 - 65 U/L [facility] AST [Catalytic activity/Vol] 10 U/L 0 - 45 U/L [facility] Bilirubin [Mass/Vol] 0.7 mg/dL 0 - 1.3 mg/dL [facility] Bilirubin.conjugated [Mass/Vol] 0.2 mg/dL 0 - 0.4 mg/dL [facility] Protein [Mass/Vol] 8.3 g/dL High 6 - 8 g/dL [facility] alth Lipaseon 07-02-2020 Interpretation and review of laboratory results Normal [facility] Lipase [Catalytic activity/Vol] 89 U/L 73 - 393 U/L [facility] Otheron 07-02-2020 Extra Tube Hold for add-ons. [facility] Comment on above: Auto resulted. Interpretation and review of laboratory results Abnormal [facility] URINALYSISon 07-02-2020 Bacteria Auto Ql (U) None Seen None Se en /hpf [facility] Bilirubin Ql (U) Negative Negative [place] [facility] Clarity Refractometry automated (U) Clear Clear [facility] Color (U) Yellow Colorless, Yellow [facility] Glucose Auto test strip (U) [Mass/Vol] Negative Negative mg/dL [facility] Hemoglobin Auto test strip Ql (U) Small Abnormal Negative [facility] Interpretation and review of laboratory results Abnormal [facility] Ketones (U) [Mass/Vol] Negative Negat zachary mg/dL [facility] Leukocyte esterase Auto test strip Ql (U) Negative Negative [facility] Mucus Auto (Urine sed) [#/Area] Rare None Seen, Rare /lpf [facility] Nitrite Auto test strip Ql (U) Negative Negative [facility] pH (U) 5.5 [pH] [facility] Protein (U) [Mass/Vol] Negative Negat zachary mg/dL [facility] RBC Auto (Urine sed) [#/Area] 3 [facility] Specific gravity (U) [Rel density] 1.031 High [facility] Transitional cells Computer assisted (U) [#/Area] <1 [facility] Urobilinogen (U) [Mass/Vol] <2.0 <2.0 mg/dL [facility] WBC Auto (Urine sed) [#/Area] 2 [facility] Microscopic examination is performed on all urinalysis samples and only positive findings are reported. The test for blood on the chemical analytic portion of urinalysis may also be positive due to hemoglobinuria and myoglobinuria and if red blood cells are present they are quantified by microscopic examination. [facility] OB TRANSVAGINALon 020 EXAMINATION: OB TRANSVAGINAL HISTORY: ORDERING SYSTEM PROVIDED HISTORY: [...] hypoechoic hemorrhagic products. Products within endometrial cavity. [facility] Overall findings concerning for right adnexal ectopic [...] to EILEEN EL on 07/02/2020 at 10:23. /[facility] Workstation ID: [id number] [facility] Interface, Rad In [facility] - 07/02/2020 6:20 PM EST EXAMINATION: US [...] to EILEEN EL on 07/02/2020 at 10:23. [facility] Work[facility] ID: [id number] [facility] OB TRANSVAGINAL EXAMINATION: US OB TRANSVAGINAL HISTORY: [...] to EILEEN EL on 07/02/2020 at 10:23. /[facility] Workstation ID: [id number] Dictated by: EDYTA GREEN on MonJul 02, 2020 10:26:22 AM EST Transcribed by: ROBERTO CARLOS KHAN on MonJul 02, 2020 10:34:20 AM EST Finalized by: EDYTA GREEN on MonJul 02, 2020 6:18:06 PM EST [facility] Comment on above: Order Comment: Injur y/Trauma or Illness?:Illness/Other How long have you had these symptoms (acute/chronic)?:Acute Reason for exam?:RLQ PAIN History of cancer?:u Surgeries, chemotherapy, or radiation?:u Type of Exam?:Initial Additional signs and symptoms?:NO Urine Pregnancyon 07-02-2020 HCG ( test) Ql (U) Positive Abnormal Negative [facility] Interpretation and review of laboratory results Abnormal [facility] Basic Metabolic Panelon 08-04 Anion gap [Moles/Vol] 12 mmol/L 10 - 2 0 mmol/L [facility] Calcium [Mass/Vol] 8.2 mg/dL Low 8.4 - 10. 2 mg/dL [facility] Chloride [Moles/Vol] 108 mmol/L 98 - 10 8 mmol/L [facility] Creatinine [Mass/Vol] 1.19 mg/dL High 0.40 - 1.10 [facility] GFR/1.73 sq M predicted among non-blacks MDRD (S/P/Bld) [Vol rate/Area] The eGFR should be used for monitoring renal function only and not for medication dosing. [facility] GFR/1.73 sq M.predicted CKD-EPI (S/P/Bld) [Vol rate/Area] 64 >=60 mL/min/1.73 m2 [facility] Glucose [Mass/Vol] 90 mg/dL 65 - 99 mg/dL [facility] HCO3 [Moles/Vol] 24 mmol/L 21 - 32 mmol/L [facility] Interpretation and review of laboratory results Abnormal [facility] Potassium [Moles/Vol] 4.5 mmol/L 3.5 - 5.1 mmol/L [facility] Sodium [Moles/Vol] 139 mmol/L 135 - 145 mmol/L [facility] Urea nitrogen [Mass/Vol] 10 mg/dL 8 - 25 mg/dL [facility] Urea nitrogen/Creatinine [Mass ratio] 8.4 mg/mg Low [facility] CBCon 08-28-2019 Erythrocyte distribution width (RBC) [Entitic vol] 15.4 % High 11.6 - 14.8 % [facility] Hematocrit (Bld) [Volume fraction] 33.8 % Low 36 - 46 % [facility] Hemoglobin (Bld) [Mass/Vol] 10.6 g/dL Low 12 - 16 g/dL [facility] Interpretation and review of laboratory results Abnormal [facility] MCH (RBC) [Entitic mass] 25.6 pg Low 26 - 34 pg [facility] MCHC (RBC) [Mass/Vol] 31.4 g/dL 31 - 37 g/dL [facility] MCV (RBC) [Entitic vol] 81.6 fL 80 - 100 fL [facility] Nucleated RBC (Bld) [#/Vol] 0.00 10*3/uL [facility] Nucleated RBC/100 WBC (Bld) [Ratio] 0.0 % [facility] Platelet mean volume (Bld) [Entitic vol] 10.9 fL 9 - 15.5 fL [facility] Platelets (Bld) [#/Vol] 192 10*3/uL [facility] RBC (Bld) [#/Vol] 4.14 10*6/uL [facility] WBC (Bld) [#/Vol] 7.51 10*3/uL [facility] eah BMPon 08-27-2019 Anion gap [Moles/Vol] 10 mmol/L 10 - 2 0 mmol/L [facility] Calcium [Mass/Vol] 8.6 mg/dL 8.4 - 10. 2 mg/dL [facility] Chloride [Moles/Vol] 110 mmol/L High 98 - 10 8 mmol/L [facility] Creatinine [Mass/Vol] 0.89 mg/dL 0.40 - 1.10 [facility] GFR/1.73 sq M predicted among non-blacks MDRD (S/P/Bld) [Vol rate/Area] The eGFR should be used for monitoring renal function only and not for medication dosing. [facility] GFR/1.73 sq M.predicted CKD-EPI (S/P/Bld) [Vol rate/Area] 91 >=60 mL/min/1.73 m2 [facility] Glucose [Mass/Vol] 92 mg/dL 65 - 99 mg/dL [facility] HCO3 [Moles/Vol] 23 mmol/L 21 - 32 mmol/L [facility] Interpretation and review of laboratory results Abnormal [facility] Potassium [Moles/Vol] 4.3 mmol/L 3.5 - 5.1 mmol/L [facility] Sodium [Moles/Vol] 139 mmol/L 135 - 145 mmol/L [facility] Urea nitrogen [Mass/Vol] 10 mg/dL 8 - 25 mg/dL [facility] Urea nitrogen/Creatinine [Mass ratio] 11.2 mg/mg [facility] CBC WITH AUTO DIFFERENTIALon 08-27-2019 Basophils (Bld) [#/Vol] 0.02 10*3/uL [facility] Basophils/100 WBC (Bld) 0.2 % [facility] Eosinophils (Bld) [#/Vol] 0.10 10*3/uL [facility] Eosinophils/100 WBC (Bld) 1.0 % [facility] Erythrocyte distribution width (RBC) [Entitic vol] 15.0 % High 11.6 - 14.8 % [facility] Hematocrit (Bld) [Volume fraction] 36.9 % 36 - 46 % [facility] Hemoglobin (Bld) [Mass/Vol] 11.8 g/dL Low 12 - 16 g/dL [facility] Immature granulocytes (Bld) [#/Vol] 0.04 10*3/uL [facility] Immature granulocytes/100 WBC (Bld) 0.40 % [facility] Comment on above: The IG parameter is the percentage of metamyelocytes, myelocytes, and promyelocytes. Interpretation and review of laboratory results Abnormal [facility] Lymphocytes (Bld) [#/Vol] 2.38 10*3/uL [facility] Lymphocytes/100 WBC (Bld) 23.1 % [facility] MCH (RBC) [Entitic mass] 25.7 pg Low 26 - 34 pg [facility] MCHC (RBC) [Mass/Vol] 32.0 g/dL 31 - 37 g/dL [facility] MCV (RBC) [Entitic vol] 80.2 fL 80 - 100 fL [facility] Monocytes (Bld) [#/Vol] 0.51 10*3/uL [facility] Monocytes/100 WBC (Bld) 4.9 % [facility] Neutrophils (Bld) [#/Vol] 7.26 10*3/uL High [facility] Neutrophils/100 WBC (Bld) 70.4 % [facility] Nucleated RBC (Bld) [#/Vol] 0.00 10*3/uL [facility] Nucleated RBC/100 WBC (Bld) [Ratio] 0.0 % [facility] Platelet mean volume (Bld) [Entitic vol] 10.6 fL 9 - 15.5 fL [facility] Platelets (Bld) [#/Vol] 210 10*3/uL [facility] RBC (Bld) [#/Vol] 4.60 10*6/uL [facility] ealth WBC (Bld) [#/Vol] 10.31 10*3/uL [facility] Basophils (Bld) [#/Vol] 0.04 10*3/uL [facility] Basophils/100 WBC (Bld) 0.5 % [facility] Eosinophils (Bld) [#/Vol] 0.32 10*3/uL [facility] Eosinophils/100 WBC (Bld) 3.8 % [facility] Erythrocyte distribution width (RBC) [Entitic vol] 15.1 % High 11.6 - 14.8 % [facility] Hematocrit (Bld) [Volume fraction] 41.6 % 36 - 46 % [facility] Hemoglobin (Bld) [Mass/Vol] 12.9 g/dL 12 - 16 g/dL [facility] Immature granulocytes (Bld) [#/Vol] 0.02 10*3/uL [facility] Immature granulocytes/100 WBC (Bld) 0.20 % [facility] Comment on above: The IG parameter is the percentage of metamyelocytes, myelocytes, and promyelocytes. Interpretation and review of laboratory results Abnormal [facility] Lymphocytes (Bld) [#/Vol] 4.37 10*3/uL High [facility] Lymphocytes/100 WBC (Bld) 52.1 % [facility] MCH (RBC) [Entitic mass] 25.2 pg Low 26 - 34 pg [facility] MCHC (RBC) [Mass/Vol] 31.0 g/dL 31 - 37 g/dL [facility] MCV (RBC) [Entitic vol] 81.4 fL 80 - 100 fL [facility] Monocytes (Bld) [#/Vol] 0.55 10*3/uL [facility] Monocytes/100 WBC (Bld) 6.6 % [facility] Neutrophils (Bld) [#/Vol] 3.09 10*3/uL [facility] Neutrophils/100 WBC (Bld) 36.8 % [facility] Nucleated RBC (Bld) [#/Vol] 0.00 10*3/uL [facility] Nucleated RBC/100 WBC (Bld) [Ratio] 0.0 % [facility] Platelet mean volume (Bld) [Entitic vol] 10.6 fL 9 - 15.5 fL [facility] Platelets (Bld) [#/Vol] 242 10*3/uL [facility] RBC (Bld) [#/Vol] 5.11 10*6/uL [facility] eah WBC (Bld) [#/Vol] 8.39 10*3/uL [facility] ealth CTA PULM ART AND CT [...] fat-containing umbilical hernia. 4. Moderate colonic stool. T/[facility] Workstation ID: [id number] Dictated by: GERMAINE DON on MonAug 27, 2019 1:57:08 AM EST Transcribed by: JESSICA BURTON on MonAug 27, 2019 2:17:15 AM EST Finalized by: GERMAINE DON on MonAug 27, 2019 2:41:28 AM EST [facility] Comment on above: Order Comment: Injur y/Trauma or Illness?:Illness/Other How long have you had these symptoms (acute/chronic)?:Acute Reason for exam?:abd pain, elevated d-dimer Type of Exam?:Initial Additional signs and symptoms?:vaginal delivery x7 weeks ago CTA Pulm Art and CT Abd Pelv is with IV contraston 08-27-2019 Interface, Rad In Fuji Speechq - 08/27/2019 2:44 AM EST EXAMINATION: CTA [...] fat-containing umbilical hernia. 4. Moderate colonic stool. [facility] Workstation ID: [id number] Arrays 1. No pulmonary arterial embolism, aortic dissection, or other acute diagnostic abnormality in the chest, abdomen or pelvis. 2. Cholelithiasis. 3. Small fat-containing umbilical hernia. 4. Moderate colonic stool. [facility] Workstation ID: [id number] EXAMINATION: CTA PULMONARY ARTERIES, CT ABDOMEN WITH [...] pelvis. The imaged axial skeleton appears intact. [facility] Chem 7on 08-27-2019 Anion gap [Moles/Vol] 9 mmol/L Low 10 - 2 0 mmol/L [facility] Chloride [Moles/Vol] 107 mmol/L 98 - 10 8 mmol/L [facility] Creatinine [Mass/Vol] 1.06 mg/dL 0.40 - 1.10 [facility] GFR/1.73 sq M predicted among non-blacks MDRD (S/P/Bld) [Vol rate/Area] The eGFR should be used for monitoring renal function only and not for medication dosing. [facility] GFR/1.73 sq M.predicted CKD-EPI (S/P/Bld) [Vol rate/Area] 74 >=60 mL/min/1.73 m2 [facility] Glucose [Mass/Vol] 94 mg/dL 65 - 99 mg/dL [facility] HCO3 [Moles/Vol] 28 mmol/L 21 - 32 mmol/L [facility] Potassium [Moles/Vol] 4.3 mmol/L 3.5 - 5.1 mmol/L [facility] Sodium [Moles/Vol] 140 mmol/L 135 - 145 mmol/L [facility] Urea nitrogen [Mass/Vol] 13 mg/dL 8 - 25 mg/dL [facility] Urea nitrogen/Creatinine [Mass ratio] 12.3 mg/mg [facility] D-DIMER, QUANTITATIVEon 08-04 Fibrin D-dimer FEU (PPP) [Mass/Vol] 0.55 High 0.27 - 0.49 mcg/mL FEU [facility] Interpretation and review of laboratory results Abnormal [facility] A D-dimer concentration of <0.5 micrograms per milliliter FEU is considered a low probability for pulmonary embolus (PE) and deep venous thrombosis (DVT). Results of this test should always be interpreted in conjunction with the patient's medical history,clinical presentation, and other findings. Clinical diagnosis should not be based on the results of the D-dimer alone. [facility] HCG (QUALITATIVE)on 08-27-19 20 Beta HCG ( test) Ql Negative Negative [facility] Negative: The result is less than or equal to 5 mIU/mL of HCG. [facility] Hepatic Function Panel (LFT) on 08-27-2019 Albumin [Mass/Vol] 3.6 g/dL 3.2 - 5.2 g/dL [facility] ALP [Catalytic activity/Vol] 85 U/L 40 - 140 U/L [facility] ALT [Catalytic activity/Vol] 19 U/L 14 - 65 U/L [facility] AST [Catalytic activity/Vol] 13 U/L 0 - 45 U/L [facility] Bilirubin [Mass/Vol] 0.1 mg/dL 0 - 1.3 mg/dL [facility] Bilirubin.conjugated [Mass/Vol] mg/dL 0 - 0.4 mg/dL [facility] Protein [Mass/Vol] 7.2 g/dL 6 - 8 g/dL [facility] alth Albumin [Mass/Vol] 4.0 g/dL 3.2 - 5.2 g/dL [facility] ALP [Catalytic activity/Vol] 95 U/L 40 - 140 U/L [facility] ALT [Catalytic activity/Vol] 20 U/L 14 - 65 U/L [facility] AST [Catalytic activity/Vol] 16 U/L 0 - 45 U/L [facility] Bilirubin [Mass/Vol] 0.2 mg/dL 0 - 1.3 mg/dL [facility] Bilirubin.conjugated [Mass/Vol] mg/dL 0 - 0.4 mg/dL [facility] Protein [Mass/Vol] 8.1 g/dL High 6 - 8 g/dL [facility] alth Lipaseon 08-27-2019 Interpretation and review of laboratory results Normal [facility] Lipase [Catalytic activity/Vol] 153 U/L 73 - 393 U/L [facility] Otheron 08-27-2019 Interpretation and review of laboratory results Normal [facility] Interpretation and review of laboratory results Abnormal [facility] URINALYSISon 08-27-2019 Bacteria Auto Ql (U) Rare Abnormal None Se en /hpf [facility] Bilirubin Ql (U) Negative Negative [place] [facility] automated (U) Clear Clear [facility] Color (U) Yellow Colorless, Yellow [facility] Epithelial cells.squamous Auto (Urine sed) [#/Area] 2 [facility] Glucose Auto test strip (U) [Mass/Vol] Negative Negative mg/dL [facility] Hemoglobin Auto test strip Ql (U) Negative Negative [facility] Interpretation and review of laboratory results Abnormal [facility] Ketones (U) [Mass/Vol] Negative Negat zachary mg/dL [facility] Leukocyte esterase Auto test strip Ql (U) Trace Abnormal Negative [facility] Mucus Auto (Urine sed) [#/Area] Rare None Seen, Rare /lpf [facility] Nitrite Auto test strip Ql (U) Negative Negative [facility] pH (U) 6.0 [pH] [facility] Protein (U) [Mass/Vol] Negative Negat zachary mg/dL [facility] RBC Auto (Urine sed) [#/Area] 1 [facility] Specific gravity (U) [Rel density] 1.020 [facility] Transitional cells Computer assisted (U) [#/Area] <1 [facility] Urobilinogen (U) [Mass/Vol] <2.0 <2.0 mg/dL [facility] WBC Auto (Urine sed) [#/Area] 8 High [facility] Microscopic examination is performed on all urinalysis samples and only positive findings are reported. The test for blood on the chemical analytic portion of urinalysis may also be positive due to hemoglobinuria and myoglobinuria and if red blood cells are present they are quantified by microscopic examination. [facility] US ABDOMEN LIMITED STUDYon 0 08-27-2019 US ABDOMEN LIMITED STUDY EXAMINATION: US ABDOMEN [...] MonAug 27, 2019 7:57:08 AM EST [facility] Comment on above: Order Comment: Injur [...] scan could be performed. Workstation ID: [id number] [facility], Rad In Fuji Speechq - 08/27/2019 7:59 AM EST EXAMINATION: US [...] scan could be performed. Workstation ID: [id number] [facility] EXAMINATION: US ABDOMEN LIMITED STUDY HISTORY: ORDERING [...] 9.8 cm. No hydronephrosis or renal calculus. [facility] Small nonshadowing stones and sludge in the dependent gallbladder. Echogenic foci with some posterior shadowing may represent adherent small stones; polyp is also a diagnostic consideration however no definite vascularity is seen. No biliary ductal dilatation. No sonographic Hughes's sign. [facility] Workstation ID: [id number] [facility] EXAMINATION: US ABDOMEN LIMITED STUDY HISTORY: ORDERING [...] identified. No definite shadowing stones. No hydronephrosis. [facility] 08/27/2019 3:18 AM EST EXAMINATION: US [...] biliary ductal dilatation. No sonographic Hughes's sign. [facility] Workstation ID: [id number] [facility] US ABDOMEN LIMITED STUDY EXAMINATION: US ABDOMEN [...] biliary ductal dilatation. No sonographic Hughes's sign. [facility]/c Workstation ID: [id number] Dictated by: BALTAZAR MARIE on MonAug 27, 2019 12:45:08 AM EST Transcribed by: ALEXYS DUARTE on MonAug 27, 2019 1:21:59 AM EST Finalized by: BALTAZAR MARIE on MonAug 27, 2019 3:15:45 AM EST [facility] Comment on above: Order Comment: US Ga llbladder Injury/Trauma or Illness?:Illness/Other How long have you had these symptoms (acute/chronic)?:Acute Reason for exam?:RUQ pain and nausea x 4 days History of cancer?:u Surgeries, chemotherapy, or radiation?:u Type of Exam?:Initial Additional signs and symptoms?:No Urine Pregnancyon 08-27-2019 HCG ( test) Ql (U) Negative Negative [facility] Interpretation and review of laboratory results Normal [facility] XR CHEST AP/PA AND LATon XR CHEST [...] on MonAug 27, 2019 12:55:04 AM EST [facility] Comment on above: Order Comment: Injur y/Trauma or Illness?:Illness/Other How long have you had these symptoms (acute/chronic)?:Acute Reason for exam?:chest pain History of cancer?:u Surgeries, chemotherapy, or radiation?:u Type of Exam?:Initial Additional signs and symptoms?:n Normal chest. Workstation ID: [id number] [facility] EXAMINATION: CHEST 2 VIEWS, 08/27/2019 HISTORY: Pleuritic chest discomfort COMPARISON: None. FINDINGS: Frontal and lateral views are submitted. Cardiac size, mediastinal contour, and pulmonary vascularity are within normal limits. The lungs and pleural spaces appear clear. The bony thorax is intact. [facility] Interface, Rad In [employer] Speechq - 08/27/2019 12:57 AM EST EXAMINATION: CHEST 2 VIEWS, 08/27/2019 HISTORY: Pleuritic chest discomfort COMPARISON: None. FINDINGS: Frontal and lateral views are submitted. Cardiac size, mediastinal contour, and pulmonary vascularity are within normal limits. The lungs and pleural spaces appear clear. The bony thorax is intact. IMPRESSION: Normal chest. Workstation ID: [id number] [facility] CBCon 02-11-2019 ABSOLUTE BAS 0.0 X10 Normal [facility] Comment on above: Performed By: #### A CBC, CMPF, LIPA2 #### Testing performed at [address] [address] ABSOLUTE EOS 0.00 X10 Normal [facility] Comment on above: Performed By: #### A CBC, CMPF, LIPA2 #### Testing performed at [address] [address] ABSOLUTE NEUTROPHIL COUNT 8.6 x10 High 1.0-7.0 [facility] Comment on above: Performed By: #### A CBC, CMPF, LIPA2 #### Testing performed at [address] [address] Basophils/100 WBC (Bld) 0.2 % Normal 0.0-2.0 [facility] Comment on above: Performed By: #### A CBC, CMPF, LIPA2 #### Testing performed at [address] [address] DTYPE AUTO DIFF Normal [facility] Comment on above: Performed By: #### A CBC, CMPF, LIPA2 #### Testing performed at [address] [address] Eosinophils/100 WBC (Bld) 0.2 % Normal 0.0-11.0 [facility] Comment on above: Performed By: #### A CBC, CMPF, LIPA2 #### Testing performed at [address] [address] Lymphocytes (Bld) [#/Vol] 0.50 X10 Normal [facility] Comment on above: Performed By: #### A CBC, CMPF, LIPA2 #### Testing performed at [address] [address] Lymphocytes/100 WBC (Bld) 5.6 % Low 20.0-55.0 [facility] Comment on above: Performed By: #### A CBC, CMPF, LIPA2 #### Testing performed at [address] [address] Monocytes (Bld) [#/Vol] 0.2 X10 Normal [facility] Comment on above: Performed By: #### A CBC, CMPF, LIPA2 #### Testing performed at [address] [address] Monocytes/100 WBC (Bld) 2.5 % Normal 0.0-10.0 [facility] Comment on above: Performed By: #### A CBC, CMPF, LIPA2 #### Testing performed at [address] [address] Neutrophils/100 WBC (Bld) 91.5 % High 37.0-75.0 [facility] Comment on above: Performed By: #### A CBC, CMPF, LIPA2 #### Testing performed at [address] [address] Erythrocyte distribution width (RBC) [Ratio] 13.7 % Normal 11.5-14.5 [facility] Comment on above: Performed By: #### A CBC, CMPF, LIPA2 #### Testing performed at [address] [address] Hematocrit (Bld) [Volume fraction] 41.2 % Normal 36.0-48.0 [facility] Comment on above: Performed By: #### A CBC, CMPF, LIPA2 #### Testing performed at [address] [address] Hemoglobin (Bld) [Mass/Vol] 14.2 g/dL Normal 12.0-16.0 [facility] Comment on above: Performed By: #### A CBC, CMPF, LIPA2 #### Testing performed at [address] [address] MCH (RBC) [Entitic mass] 29.7 pg Normal 26.0-35.0 [facility] Comment on above: Performed By: #### A CBC, CMPF, LIPA2 #### Testing performed at [address] [address] MCHC (RBC) [Mass/Vol] 34.6 g/dL Normal 27.0-37.0 [facility] Comment on above: Performed By: #### A CBC, CMPF, LIPA2 #### Testing performed at [address] [address] MCV (RBC) [Entitic vol] 85.9 fL Normal 80.0-100.0 [facility] Comment on above: Performed By: #### A CBC, CMPF, LIPA2 #### Testing performed at [address] [address] Platelet mean volume (Bld) [Entitic vol] 9.6 fL Normal 7.4-11.0 [facility] Comment on above: Performed By: #### A CBC, CMPF, LIPA2 #### Testing performed at [address] [address] Platelets (Bld) [#/Vol] 161 /cmm Normal 130.0-400.0 [facility] Comment on above: Performed By: #### A CBC, CMPF, LIPA2 #### Testing performed at [address] [address] RBC (Bld) [#/Vol] 4.80 /cmm Normal 4.0-5.4 [facility] Comment on above: Performed By: #### A CBC, CMPF, LIPA2 #### Testing performed at [address] [address] WBC (Bld) [#/Vol] 9.4 /cmm Normal 3.6-11.0 [facility] Comment on above: Performed By: #### A CBC, CMPF, LIPA2 #### Testing performed at [facility] [address] [place] [address] CBC, EDIF, PLATELETon 2018 ABSOLUTE BASOPHIL COUNT 0.0 X10 [facility] Basophils/100 WBC (Bld) 0.2 % 0 - 2 % [facility] Differential cell count method Nom (Bld) AUTO DIFF % [facility] Eosinophils (Bld) [#/Vol] 0.00 10*3/uL X10 [facility] Eosinophils/100 WBC (Bld) 0.2 % 0 - 11 % [facility] Erythrocyte distribution width (RBC) [Ratio] 13.7 % 11.5 - 14.5 % [facility] Hematocrit (Bld) [Volume fraction] 41.2 % 36 - 48 % [facility] Hemoglobin (Bld) [Mass/Vol] 14.2 g/dL [facility] Lymphocytes (Bld) [#/Vol] 0.50 10*3/uL X10 [facility] Lymphocytes/100 WBC (Bld) 5.6 % Low 20 - 55 % [facility] MCH (RBC) [Entitic mass] 29.7 pg 26 - 35 PG [facility] MCHC (RBC) [Mass/Vol] 34.6 g/dL [facility] MCV (RBC) [Entitic vol] 85.9 fL [facility] Monocytes (Bld) [#/Vol] 0.2 10*3/uL X10 [facility] Monocytes/100 WBC (Bld) 2.5 % 0 - 10 % [facility] Neutrophils (Bld) [#/Vol] 8.6 10*3/uL High [facility] Neutrophils/100 WBC (Bld) 91.5 % High 37 - 75 % [facility] Platelet mean volume (Bld) [Entitic vol] 9.6 fL [facility] Platelets (Bld) [#/Vol] 161 10*3/uL [facility] RBC (Bld) [#/Vol] 4.80 10*6/uL [facility] WBC (Bld) [#/Vol] 9.4 10*3/uL [facility] C[facility] FASTINGon 02-11-2019 A:G RATIO 1.1 RATIO Low 1.3-2.2 [facility] Comment on above: Performed By: #### A CBC, CMPF, LIPA2 #### Testing performed at [address] [address] Albumin [Mass/Vol] 4.1 G/dl Normal 3.5-5.0 [facility] Comment on above: Performed By: #### A CBC, CMPF, LIPA2 #### Testing performed at [address] [address] ALP [Catalytic activity/Vol] 50 U/L Normal 38-126 [facility] Comment on above: Performed By: #### A CBC, CMPF, LIPA2 #### Testing performed at [address] [address] ALT [Catalytic activity/Vol] 14 U/L Normal 14-54 [facility] Comment on above: Performed By: #### A CBC, CMPF, LIPA2 #### Testing performed at [address] [address] AST [Catalytic activity/Vol] 18 U/L Normal 15-41 [place] [facility] Comment on above: Performed By: #### A CBC, CMPF, LIPA2 #### Testing performed at [address] [address] Bilirubin [Mass/Vol] 0.8 mg/dL Normal 0.2-1.2 [facility] Comment on above: Performed By: #### A CBC, CMPF, LIPA2 #### Testing performed at [address] [address] Creatinine [Mass/Vol] 0.56 mg/dL Normal 0.52-1.04 [facility] Comment on above: Performed By: #### A CBC, CMPF, LIPA2 #### Testing performed at [address] [address] EST. GFR, >60 Normal [facility] Comment on above: Performed By: #### A CBC, CMPF, LIPA2 #### Testing performed at [address] [address] EST. GFR,Non >60 Normal [facility] Comment on above: Performed By: #### A CBC, CMPF, LIPA2 #### Testing performed at [address] [address] GFR/1.73 sq M predicted among non-blacks MDRD (S/P/Bld) [Vol rate/Area] Average GFR for 20-29 years old = 116. Normal [facility] Comment on above: Result Comment: Registered Nurse Teacher benito Kidney disease, GFR = <60. Kidney failure, GFR = <15. The GFR estimate is not adjusted for extreme body surface area or acute process, nor has it been validated for women or ethnic groups other than and . Performed By: #### A CBC, CMPF, LIPA2 #### Testing performed at [address] [address] Protein [Mass/Vol] 7.9 g/dL Normal 6.3-8.2 [facility] Comment on above: Performed By: #### A CBC, CMPF, LIPA2 #### Testing performed at [address] [address] Urea nitrogen [Mass/Vol] 9 mg/dL Normal 7-20 [facility] Comment on above: Performed By: #### A CBC, CMPF, LIPA2 #### Testing performed at [address] [address] Calcium [Mass/Vol] 9.3 mg/dL Normal 8.4-10.2 [facility] Comment on above: Performed By: #### A CBC, CMPF, LIPA2 #### Testing performed at [address] [address] Chloride [Moles/Vol] 103 mmol/L Normal 98-107 [facility] Comment on above: Performed By: #### A CBC, CMPF, LIPA2 #### Testing performed at [address] [address] CO2 [Moles/Vol] 21 mmol/L Low 22-30 [facility] Comment on above: Performed By: #### A CBC, CMPF, LIPA2 #### Testing performed at [address] [address] Glucose [Mass/Vol] 99 mg/dL Normal 70-100 [facility] Comment on above: Result Comment: NORMAL <100 mg/dL PREDIABETES 101-126 mg/dL DIABETES 126 mg/dL or higher Performed By: #### A CBC, CMPF, LIPA2 #### Testing performed at [address] [address] Potassium [Moles/Vol] 4.1 mmol/L Normal 3.5-5.1 [facility] Comment on above: Performed By: #### A CBC, CMPF, LIPA2 #### Testing performed at [address] [address] Sodium [Moles/Vol] 136 mmol/L Normal 136-145 [facility] Comment on above: Performed By: #### A CBC, CMPF, LIPA2 #### Testing performed at [address] [address] COMPREHENSIVE METABOLIC PANE Arnaldo 02-11-2019 Albumin [Mass/Vol] 4.1 G/dl 3.5 - 5 G/dl [facility] Albumin/Globulin [Mass ratio] 1.1 {ratio} Low [facility] ALP [Catalytic activity/Vol] 50 U/L [facility] ALT [Catalytic activity/Vol] 14 U/L [facility] AST [Catalytic activity/Vol] 18 U/L [facility] Bilirubin [Mass/Vol] 0.8 mg/dL [facility] Calcium [Mass/Vol] 9.3 mg/dL [facility] Chloride [Moles/Vol] 103 mmol/L [facility] CO2 [Moles/Vol] 21 mmol/L Low [facility] Creatinine [Mass/Vol] 0.56 mg/dL [facility] GFR/1.73 sq M predicted among blacks MDRD (S/P/Bld) [Vol rate/Area] mL/min/{1.73_m2} ml/min/1.73sq .m [facility] GFR/1.73 sq M predicted among non-blacks MDRD (S/P/Bld) [Vol rate/Area] mL/min/{1.73_m2} ml/min/1.73sq .m [facility] GFR/1.73 sq M predicted among non-blacks MDRD (S/P/Bld) [Vol rate/Area] Average GFR for 20-29 years old = 116. [facility] Comment on above: Chronic Kidney disea se, GFR = <60. Kidney failure, GFR = <15. The GFR estimate is not adjusted for extreme body surface area or acute process, nor has it been validated for women or ethnic groups other than and . Glucose post fast [Mass/Vol] 99 mg/dL [facility] Comment on above: NORMAL <100 mg/dL PREDIABETES 101-126 mg/dL DIABETES 126 mg/dL or higher Potassium [Moles/Vol] 4.1 mmol/L [facility] Protein [Mass/Vol] 7.9 g/dL [facility] Sodium [Moles/Vol] 136 mmol/L [facility] Urea nitrogen [Mass/Vol] 9 mg/dL [facility] LIPASEon 02-11-2019 Lipase [Catalytic activity/Vol] 25 U/L 23 - 300 U/L [facility] LIPASE,SERUMon 02-11-2019 LIPASE,SERUM 25 U/L Normal 23-300 [facility] Comment on above: Performed By: #### A CBC, CMPF, LIPA2 #### [place] [address] Otheron 02-11-2019 Interpretation and review of laboratory results Abnormal [facility] Interpretation and review of laboratory results Abnormal [facility] URINALYSIS, MACROon 02-12-20 19 Bilirubin Ql (U) SMALL Abnormal NE[facility]IVE [facility] Clarity (U) CLEAR CLEAR [facility] Color (U) YELLOW YELLOW [facility] Glucose Test strip (U) [Mass/Vol] Negative NEGATIVE mg/dl [facility] Hemoglobin Ql (U) Negative NEGATIVE [facility] Ketones (U) [Mass/Vol] >160 Abnormal NEGAT [facility] mg/dl [facility] Leukocyte esterase Test strip Ql (U) Negative NEGATIVE [facility] Nitrite Ql (U) Negative NEGATIVE [facility] pH (U) 5.5 [pH] [facility] Protein Ql (U) 30 mg/dl Abnormal NEGATIVE [facility] Specific gravity (U) [Rel density] >1.030 High [facility] Urobilinogen (U) [Mass/Vol] 0.2 mg/dl 0.2 - 1 mg/dl [facility] URINE MACROSCOPICon 02-12-20 19 Bilirubin Ql (U) SMALL Abnormal NEGATIVE [facility] Comment on above: Performed By: #### U MAC, UMIC #### [place] [address] Clarity (U) CLEAR Normal CLEAR [facility] Comment on above: Performed By: #### U MAC, UMIC #### Testing performed at [address] [address] Color (U) YELLOW Normal YELLOW [facility] Comment on above: Performed By: #### U MAC, UMIC #### Testing performed at [address] [address] Glucose Ql (U) Negative Normal NEGATIVE [facility] Comment on above: Performed By: #### U MAC, UMIC #### Testing performed at [address] [address] pH (U) 5.5 [pH] Normal 5.0-7.0 [facility] Comment on above: Performed By: #### U MAC, UMIC #### Testing performed at [address] [address] Protein (U) [Mass/Vol] 30 mg/dL Abnormal NEGATIVE [facility] Comment on above: Performed By: #### U MAC, UMIC #### Testing performed at [address] [place] [address] URINE HEMOGLOBIN Negative Normal NEGATIVE [facility] Comment on above: Performed By: #### U MAC, UMIC #### Testing performed at [address] [place] [address] URINE KETONE >160 Abnormal NEGATIVE [facility] Comment on above: Performed By: #### U MAC, UMIC #### Testing performed at [address] [address] URINE LEUKOTEST Negative Normal NEGATIVE [facility] Comment on above: Performed By: #### U MAC, UMIC #### Testing performed at [address] [address] URINE NITRATES Negative Normal NEGATIVE [facility] Comment on above: Performed By: #### U MAC, UMIC #### Testing performed at [address] [address] URINE SPEC GRAVITY >1.030 High 1.010-1.025 [facility] Comment on above: Performed By: #### U MAC, UMIC #### Testing performed at [address] [address] Urobilinogen Qn (U) 0.2 mg/dl Normal 0.2-1.0 [facility] Comment on above: Performed By: #### U MAC, UMIC #### Testing performed at [address] [address] URINE MICROSCOPICon 02-12-20 19 Bacteria LM.HPF (Urine sed) [#/Area] TRACE Abnormal NEGATIVE [facility] Comment on above: Performed By: #### U MAC, UMIC #### Testing performed at [address] [address] Casts LM.LPF (Urine sed) [#/Area] NONE Normal NONE [facility] Comment on above: Performed By: #### U MAC, UMIC #### Testing performed at [address] [address] CRYSTAL NONE Normal [facility] Comment on above: Performed By: #### U MAC, UMIC #### Testing performed at [address] [address] Epithelial cells LM.HPF (Urine sed) [#/Area] 20 TO 30 Normal [facility] Comment on above: Performed By: #### U MAC, UMIC #### Testing performed at [address] [address] Mucus Ql (Urine sed) Negative Normal NEGATIVE [facility] Comment on above: Performed By: #### U MAC, UMIC #### Testing performed at [address] [address] RBC (U) [#/Vol] 1 TO 5 Normal NEGATIVE [facility] Comment on above: Performed By: #### U MAC, UMIC #### Testing performed at [address] [address] URINE COMMENT POSSIBLY CONTAMINATE D SPECIMEN, CULTURE MUST BE ORDERED SEPARATELY IF DEEMED NECESSARY. Normal [facility] Comment on above: Performed By: #### U MAC, UMIC #### Testing performed at [address] [address] WBC (U) [#/Vol] Negative Normal NEGATIVE [facility] Comment on above: Performed By: #### U MAC, UMIC #### Testing performed at [facility] [address] [place] [address] Bacteria LM.HPF (Urine sed) [#/Area] TRACE Abnormal NEGATIVE [facility] Casts LM.LPF (Urine sed) [#/Area] NONE NONE /LPF [facility] Crystals LM Nom (Urine sed) NONE NONE [facility] Epithelial cells LM Ql (Urine sed) 20 TO 30 /HPF [facility] Mucus Ql (Urine sed) Negative NEGATIVE [facility] RBC LM.HPF (Urine sed) [#/Area] 1 TO 5 NEGATIVE /HPF [facility] Urine sediment comments LM Dvaid (Urine sed) POSSIBLY CONTAMINATED SPECIMEN, CULTURE MUST BE ORDERED SEPARATELY IF DEEMED NECESSARY. [facility] WBC LM.HPF (Urine sed) [#/Area] Negative NEGATIVE /HPF [facility] Lab Miscellaneouson 08-10-19 19 Status See Ref Lab Report Normal [facility] Comment on above: Order Comment: Rere c Disease panel #[id number] Performed By: #### 1 [id number] #### [facility] [employer] [address] [place] [address] Lab Miscellaneouson 08-08-19 19 Test Name celiac [id number] Normal [facility] Comment on above: Order Comment: Rere c Disease panel #[id number] Performed By: #### 1 [id number] #### STACI Send Outs [employer]section [facility] [place] [address] US Pelvis Non-OB Completeon 08-08-2018 US Pelvis Non-OB Complete Exam Date/Time: 08/08/2018 14:34 EST Reason for Exam: ABNORMAL CT SCAN;Abnormal CT Report STUDY: US Pelvis Non-OB Complete; US Transvaginal Non-OB; 08/08/2018 2:34 pm INDICATION: Abnormal CT. COMPARISON: None. ACCESSION NUMBER(S): [id number]; [id number] ORDERING CLINICIAN: Lilliam Wyatt TECHNIQUE: Multiple multiplanar [...] Signed by: Sherin Peter MD Technologist: [facility] US Transvaginal Non-OBon US Transvaginal Non-OB Exam Date/Time: 08/08/2018 14:34 EST Reason for Exam: Abnormal CT Report STUDY: US Pelvis Non-OB Complete; US Transvaginal Non-OB; 08/08/2018 2:34 pm INDICATION: Abnormal CT. COMPARISON: None. ACCESSION NUMBER(S): [id number]; [id number] ORDERING CLINICIAN: Lilliam Wyatt TECHNIQUE: Multiple multiplanar [...] Signed by: Sherin Peter MD Technologist: [facility] CT Abdomen/Pelvis w/ Contras ernesto 07-30-2018 CT Abdomen/Pelvis w/ Contrast Exam Date/Time: 07/30/2018 11:40 EST Reason for Exam: RIGHT LOWER QUAD ABD PAIN;Pain Report STUDY: CT Abdomen/Pelvis w/ Contrast; 07/30/2018 11:40 am INDICATION: Abdominal pain. COMPARISON: July 05, 2016 ACCESSION NUMBER(S): [id number] ORDERING CLINICIAN: Lilliam Wyatt TECHNIQUE: CT of [...] by: Paul Walker MD Technologist: [facility]GELICA [facility] HCG.beta subunit Qn Negative Normal Negative [facility] Comment on above: Performed By: #### 2 [id number] #### [place] [address] NM Hepatobiliary Duct System Imaging w/EFon 07-02-2018 NM Hepatobiliary Duct System Imaging w/EF Exam Date/Time: 07/02/2018 10:23 EST Reason for Exam: RUQ PAIN DIARRHEA;Nausea Report STUDY: NM Hepatobiliary Duct System Imaging w/EF; 07/02/2018 10:23 am INDICATION: Nausea. COMPARISON: None. ACCESSION NUMBER(S): [id number] ORDERING CLINICIAN: Hanh Madrigal TECHNIQUE: DIVISION OF [...] or biliary dyskinesia. Images were interpreted at [facility]. FINAL REPORT Dictated: 07/02/2018 10:35 am Aguilar Montalvo MD Signed (Electronic Signature): 07/02/2018 10:35 am Signed by: Aguilar Montalvo MD Technologist: KW Normal [facility] CMPon 06-07-2018 Albumin mass conc 4.5 g/dL Normal 3.4-5.0 [facility] Comment on above: Performed By: #### 2 [id number] #### [facility] [employer] [address] [place] [address] Albumin/Globulin mass ratio 1.8 {ratio} Normal 1.1-1.9 [facility] Comment on above: Performed By: #### 2 [id number] #### [facility] [employer] [address] [place] [address] Alk Phos 45 Int._Unit/L Normal 33-110 [facility] Comment on above: Performed By: #### 2 [id number] #### [facility] [employer] [address] [place] [address] ALT enzyme act/vol 11 Int._Unit/L Normal 7-45 [facility] Comment on above: Performed By: #### 2 [id number] #### [employer] [employer] [address] [place] [address] Anion gap molar conc 9 mmol/L Low 10-20 [facility] Comment on above: Performed By: #### 2 [id number] #### [employer] [address] [place] [address] AST enzyme act/vol 15 Int._Unit/L Normal 9-39 [facility] Comment on above: Performed By: #### 2 [id number] #### [employer] [employer] [address] [place] [address] Bili Total 0.44 mg/dL Normal 0.00-1.20 [facility] Comment on above: Performed By: #### 2 [id number] #### [employer] [address] [place] [address] Calcium mass conc 9.1 mg/dL Normal 8.6-10.3 [facility] Comment on above: Performed By: #### 2 [id number] #### [employer] [address] [place] [address] Chloride molar conc 106 mmol/L Normal 98-107 [facility] Comment on above: Performed By: #### 2 [id number] #### [employer] [address] [place] [address] CO2 molar conc 29.0 mmol/L Normal 21.0-32.0 [facility] Comment on above: Performed By: #### 2 [id number] #### [employer] [employer] [address] [place] [address] Creatinine mass conc 0.8 mg/dL Normal 0.5-1.1 [facility] Comment on above: Performed By: #### 2 [id number] #### [employer] [employer] [address] [place] [address] Globulin mass conc (S) 3.0 g/dL Normal 2.0-4.0 [facility] Comment on above: Performed By: #### 2 [id number] #### [facility] [employer] [address] [place] [address] Glucose mass conc 78 mg/dL Normal 70-99 [facility] Comment on above: Performed By: #### 2 [id number] #### [employer] [employer] [address] [place] [address] Potassium molar conc 4.0 mmol/L Normal 3.5-5.3 [facility] Comment on above: Performed By: #### 2 [id number] #### [employer] [address] [place] [address] Protein mass conc 7.0 g/dL Normal 6.4-8.2 [facility] Comment on above: Performed By: #### 2 [id number] #### [employer] [address] [place] [address] Sodium molar conc 140 mmol/L Normal 136-145 [facility] Comment on above: Performed By: #### 2 [id number] #### [employer] [address] [place] [address] Urea nitrogen mass conc 11 mg/dL Normal 6-23 [facility] Comment on above: Performed By: #### 2 [id number] #### [employer] [address] [place] [address] Urea nitrogen/Creatinine mass ratio 13.8 ratio Normal 5.4-30.0 [facility] Comment on above: Performed By: #### 2 [id number] #### [employer] [address] [place] [address] Lipid Profileon 06-07-2018 Cholesterol in HDL mass conc 63 mg/dL Normal >=45 [facility] Comment on above: Performed By: #### 3 [id number] #### [facility] [employer] [facility] [place] [address] Cholesterol in LDL mass conc 79 mg/dL Normal 0-130 [facility] Comment on above: Result Comment: <100 OPTIMAL 100-129 NEAR / ABOVE OPTIMAL 130-159 BORDERLINE HIGH 160-189 HIGH >190 VERY HIGH CALC LDL NOT VALID WHEN TRIGLYCERIDE IS >400 MG/DL Performed By: #### 3 [id number] #### [employer] [employer] [address] [place] [address] Cholesterol in VLDL mass conc 9 mg/dL Normal 0-40 [facility] Comment on above: Performed By: #### 3 [id number] #### [employer] [address] [place] [address] Cholesterol mass conc 151 mg/dL Normal 0-189 [facility] Comment on above: Result Comment: TOTA L CHOLEESTEROL: <200 NORMAL 200 - 239 BORDERLINE HIGH >240 HIGH Performed By: #### 3 [id number] #### [employer] [employer] [address] [place] [address] Triglyceride mass conc 46 mg/dL Normal 0-149 [facility] Comment on above: Result Comment: AGE DESIRABLE BORDERLINE HIGH 91 D - 9 Y 0 - 74 75 - 99 > 100 10 - 19 Y 0 - 89 90 - 129 > 130 20 -24 Y 0 - 114 115 - 149 > 150 > 25 0 - 149 150 - 199 200 - 499 Performed By: #### 3 [id number] #### [facility] [employer] [address] [place] [address] eGFRon 06-07-2018 GFR/1.73 sq M predicted among non-blacks MDRD vol rate/area (S/P/Bld) mL/min/{1.73_m2} Normal [facility] Comment on above: Order Comment: Order added by Discern Expert. Performed By: #### 1 [id number] #### [facility] [address] [address] US Abdomen, Limitedon 2017 US Abdomen, Limited Exam Date/Time: 12/13/2017 09:08 EDT Reason for Exam: RIGHT UPPER QUAD PAIN ATTN: RUQ;RUQ Pain Report STUDY: US Abdomen, Limited; 12/13/2017 9:08 am INDICATION: RUQ Pain. COMPARISON: None. ACCESSION NUMBER(S): [id number] ORDERING CLINICIAN: Samreen John TECHNIQUE: Grayscale color [...] am Signed by: Mary Ramires MD Technologist: [facility] Vital Signs Date Time Vital Sign Value Performing Clinician Facility 04-04-2025 09:41-0400 Body height 160.[address] Hanh Madrigal DO Work Phone: [facility] 04-04-2025 09:41-0400 Body mass index (BMI) [Ratio] 31.7 kg/m2 Dr. Hanh Madrigal DO Work Phone: [facility] 04-04-2025 09:41-0400 Body weight 81.[address] Hanh Madrigal DO Work Phone: [facility] 04-04-2025 09:41-0400 Diastolic blood pressure 72 mm[Hg] Dr. Hanh Madrigal DO Work Phone: [facility] 04-04-2025 09:41-0400 Systolic blood pressure 108 mm[Hg] Dr. Hanh Madrigal DO Work Phone: [facility] 03-20-2025 09:37-0400 Body height 160.[address] Hanh Madrigal DO Work Phone: [facility] 03-20-2025 09:37-0400 Body mass index (BMI) [Ratio] 31.5 kg/m2 Dr. Hanh Madrigal DO Work Phone: [facility] 03-20-2025 09:37-0400 Body weight 80.[address] Hanh Madrigal DO Work Phone: [facility] 03-20-2025 09:37-0400 Diastolic blood pressure 72 mm[Hg] Dr. Hanh Madrigal DO Work Phone: [facility] 03-20-2025 09:37-0400 Systolic blood pressure 106 mm[Hg] Dr. Hanh Madrigal DO Work Phone: [facility] 03-07-2025 14:49-0400 Body height 160.[address] Hanh Madrigal DO Work Phone: [facility] 03-07-2025 14:49-0400 Body mass index (BMI) [Ratio] 31.1 kg/m2 Dr. Hanh Madrigal DO Work Phone: [facility] 03-07-2025 14:49-0400 Body weight 79.[address] Hanh Madrigal DO Work Phone: [facility] 03-07-2025 14:49-0400 Diastolic blood pressure 73 mm[Hg] Dr. Hanh Madrigal DO Work Phone: [facility] 03-07-2025 14:49-0400 Systolic blood pressure 109 mm[Hg] Dr. Hanh Madrigal DO Work Phone: [facility] 02-14-2025 11:28-0400 Body height 160.[address] Hanh Madrigal DO Work Phone: [facility] 02-14-2025 11:28-0400 Body mass index (BMI) [Ratio] 29.5 kg/m2 Dr. Hanh Madrigal DO Work Phone: [facility] 02-14-2025 11:28-0400 Body weight 75.[address] Hanh Madrigal DO Work Phone: [facility] 02-14-2025 11:28-0400 Diastolic blood pressure 83 mm[Hg] Dr. Hanh Madrigal DO Work Phone: [facility] 02-14-2025 11:28-0400 Systolic blood pressure 116 mm[Hg] Dr. Hanh Madrigal DO Work Phone: [facility] 01-17-2025 10:06-0400 Body height 160.[address] Hanh Madrigal DO Work Phone: [facility] 01-17-2025 10:06-0400 Body mass index (BMI) [Ratio] 28.7 kg/m2 Dr. Hanh Madrigal DO Work Phone: [facility] 01-17-2025 10:06-0400 Body weight 73.[address] Hanh Madrigal DO Work Phone: [facility] 01-17-2025 10:06-0400 Diastolic blood pressure 76 mm[Hg] Dr. Hanh Madrigal DO Work Phone: [facility] 01-17-2025 10:06-0400 Systolic blood pressure 119 mm[Hg] Dr. Hanh Madrigal DO Work Phone: [facility] 12-16-2024 13:25-0400 Body height 160.[address] Hanh Madrigal DO Work Phone: [facility] 12-16-2024 13:25-0400 Body mass index (BMI) [Ratio] 27.8 kg/m2 Dr. Hanh Madrigal DO Work Phone: [facility] 12-16-2024 13:25-0400 Body weight 71.[address] Hanh Madrigal DO Work Phone: [facility] 12-16-2024 13:25-0400 Diastolic blood pressure 80 mm[Hg] Dr. Hanh Madrigal DO Work Phone: [facility] 12-16-2024 13:25-0400 Systolic blood pressure 119 mm[Hg] Dr. Hanh Madrigal DO Work Phone: [facility] 11-22-2024 13:34-0400 Body height 160.[address] Hanh Madrigal DO Work Phone: [facility] 11-22-2024 13:34-0400 Body mass index (BMI) [Ratio] 26.9 kg/m2 Dr. Hanh Madrigal DO Work Phone: [facility] 11-22-2024 13:34-0400 Body weight 69.[address] Hanh Madrigal DO Work Phone: [facility] 11-22-2024 13:34-0400 Diastolic blood pressure 79 mm[Hg] Dr. Hanh Madrigal DO Work Phone: [facility] 11-22-2024 13:34-0400 Systolic blood pressure 119 mm[Hg] Dr. Hanh Madrigal DO Work Phone: [facility] 10-25-2024 13:03-0400 Body height 160.[address] Hanh Madrigal DO Work Phone: [facility] 10-25-2024 13:03-0400 Body mass index (BMI) [Ratio] 26.9 kg/m2 Dr. Hanh Madrigal DO Work Phone: [facility] 10-25-2024 13:03-0400 Body weight 69.[address] Hanh Madrigal DO Work Phone: [facility] 10-25-2024 13:03-0400 Diastolic blood pressure 76 mm[Hg] Dr. Hanh Madrigal DO Work Phone: [facility] 10-25-2024 13:03-0400 Systolic blood pressure 119 mm[Hg] Dr. Hanh Madrigal DO Work Phone: [facility] 06-03-2024 15:18-0500 Body mass index (BMI) [Ratio] 27.46 kg/m2 Colt Pardo DO Work Phone: [facility] 06-03-2024 15:18-0500 Body weight 70.31 kg Colt Pardo DO Work Phone: [facility] 06-03-2024 15:18-0500 Diastolic blood pressure 72 mm[Hg] Colt Pardo DO Work Phone: [facility] 06-03-2024 15:18-0500 Heart rate 80 /min Colt Pardo DO Work Phone: [facility] 06-03-2024 15:18-0500 SaO2% (BldA) [Mass fraction] 98 % Colt Pardo DO Work Phone: [facility] 06-03-2024 15:18-0500 Systolic blood pressure 108 mm[Hg] Colt Pardo DO Work Phone: [facility] 05-06-2024 08:37-0500 Body height 160 cm Hanh Madrigal DO Work Phone: [facility] 05-06-2024 08:37-0500 Body mass index (BMI) [Ratio] 27.81 kg/m2 Hanh Madrigal DO Work Phone: [facility] 05-06-2024 08:37-0500 Body weight 71.22 kg Hanh Madrigal DO Work Phone: [facility] 05-06-2024 08:37-0500 Diastolic blood pressure 70 mm[Hg] Hanh Madrigal DO Work Phone: [facility] 05-06-2024 08:37-0500 Heart rate 85 /min Hanh Madrigal DO Work Phone: [facility] 05-06-2024 08:37-0500 Systolic blood pressure 105 mm[Hg] Hanh Madrigal DO Work Phone: [facility] 10-30-2023 15:36-0400 Body height 160.[address] Hanh Madrigal Work Phone: [facility] 10-30-2023 15:36-0400 Body mass index (BMI) [Ratio] 32.4 kg/m2 Dr. Hanh Madrigal Work Phone: [facility] 10-30-2023 15:36-0400 Body weight [address] Hanh Madrigal Work Phone: [facility] 10-30-2023 15:36-0400 Diastolic blood pressure 82 mm[Hg] Dr. Hanh Madrigal Work Phone: [facility] 10-30-2023 15:36-0400 Systolic blood pressure 120 mm[Hg] Dr. Hanh Madrigal Work Phone: [facility] 10-30-2023 08:25-0400 Body height 160 cm Hanh Madrigal DO Work Phone: [facility] 10-30-2023 08:25-0400 Body mass index (BMI) [Ratio] 32.06 kg/m2 Hanh Madrigal DO Work Phone: [facility] 10-30-2023 08:25-0400 Body weight 82.1 kg Hanh Madrigal DO Work Phone: [facility] 10-30-2023 08:25-0400 Diastolic blood pressure 75 mm[Hg] Hanh Madrigal DO Work Phone: [facility] 10-30-2023 08:25-0400 Heart rate 94 /min Hanh Madrigal DO Work Phone: [facility] 10-30-2023 08:25-0400 Systolic blood pressure 115 mm[Hg] Hanh Madrigal DO Work Phone: [facility] 10-18-2023 15:55-0400 Body mass index (BMI) [Ratio] 31.5 kg/m2 Dr. Hahn Madrigal Work Phone: [facility] 10-18-2023 15:55-0400 Body weight 80.[address] Hanh Madrigal Work Phone: [facility] 10-18-2023 15:55-0400 Diastolic blood pressure 84 mm[Hg] Dr. Hanh Madrigal Work Phone: [facility] 10-18-2023 15:55-0400 Systolic blood pressure 118 mm[Hg] Dr. Hanh Madrigal Work Phone: [facility] 10-04-2023 16:08-0400 Body mass index (BMI) [Ratio] 31.1 kg/m2 Dr. Hanh Madrigal Work Phone: [facility] 10-04-2023 16:08-0400 Body weight 79.[address] Hanh Madrigal Work Phone: [facility] 10-04-2023 16:08-0400 Diastolic blood pressure 77 mm[Hg] Dr. Hanh Madrigal Work Phone: [facility] 10-04-2023 16:08-0400 Systolic blood pressure 116 mm[Hg] Dr. Hanh Madrigal Work Phone: [facility] 09-18-2023 08:27-0400 Body height 160.[address] Hanh Madrigal Work Phone: [facility] 09-18-2023 08:25-0400 Body mass index (BMI) [Ratio] 30.7 kg/m2 Dr. Hanh Madrigal Work Phone: [facility] 09-18-2023 08:25-0400 Body weight 78.[address] Hanh Madrigal Work Phone: [facility] 09-18-2023 08:25-0400 Diastolic blood pressure 77 mm[Hg] Dr. Hanh Madrigal Work Phone: [facility] 09-18-2023 08:25-0400 Systolic blood pressure 114 mm[Hg] Dr. Hanh Madrigal Work Phone: [facility] 08-21-2023 09:45-0500 Body mass index (BMI) [Ratio] 29 kg/m2 Dr. Hanh Madrigal Work Phone: [facility] 08-21-2023 09:45-0500 Body weight 74.[address] Hanh Madrigal Work Phone: [facility] 08-21-2023 09:45-0500 Diastolic blood pressure 77 mm[Hg] Dr. Hanh Madrigal Work Phone: [facility] 08-21-2023 09:45-0500 Systolic blood pressure 117 mm[Hg] Dr. Hanh Madrigal Work Phone: [facility] 07-28-2023 15:53-0500 Body mass index (BMI) [Ratio] 28 kg/m2 Dr. Hanh Madrigal Work Phone: [facility] 07-28-2023 15:53-0500 Body weight 71.[address] Hanh Madrigal Work Phone: [facility] 07-28-2023 15:53-0500 Diastolic blood pressure 73 mm[Hg] Dr. Hanh Madrigal Work Phone: [facility] 07-28-2023 15:53-0500 Systolic blood pressure 110 mm[Hg] Dr. Hanh Madrigal Work Phone: [facility] 06-28-2023 15:47-0500 Body mass index (BMI) [Ratio] 27.1 kg/m2 Dr. Hanh Madrigal Work Phone: [facility] 06-28-2023 15:47-0500 Body weight 69.[address] Hanh Madrigal Work Phone: [facility] 06-28-2023 15:47-0500 Diastolic blood pressure 79 mm[Hg] Dr. Hanh Madrigal Work Phone: [facility] 06-28-2023 15:47-0500 Systolic blood pressure 113 mm[Hg] Dr. Hanh Madrigal Work Phone: [facility] 05-22-2023 14:07-0500 Body height 160.[address] Hanh Madrigal Work Phone: [facility] 05-22-2023 14:07-0500 Body mass index (BMI) [Ratio] 26.2 kg/m2 Dr. Hanh Madrigal Work Phone: [facility] 05-22-2023 14:07-0500 Body weight 67.[address] Hanh Madrigal Work Phone: [facility] 05-22-2023 14:07-0500 Diastolic blood pressure 82 mm[Hg] Dr. Hanh Madrigal Work Phone: [facility] 05-22-2023 14:07-0500 Systolic blood pressure 128 mm[Hg] Dr. Hanh Madrigal Work Phone: [facility] 04-28-2023 09:39-0400 Body height 160.[address] Hanh Madrigal Work Phone: [facility] 04-28-2023 09:39-0400 Body mass index (BMI) [Ratio] 26.4 kg/m2 Dr. Hanh Madrigal Work Phone: [facility] 04-28-2023 09:39-0400 Body weight 67.[address] Hanh Madrigal Work Phone: [facility] 04-28-2023 09:39-0400 Diastolic blood pressure 85 mm[Hg] Dr. Hanh Madrigal Work Phone: [facility] 04-28-2023 09:39-0400 Systolic blood pressure 133 mm[Hg] Dr. 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 Phone: [facility] 08-08-2022 09:05-0500 Body height 160.02 cm Hanh Madrigal Work Phone: [facility] Work Phone: 08-08-2022 09:05-0500 Body mass index (BMI) [Ratio] 22.32 kg/m2 Hanh Madrigal Work Phone: [facility] Work Phone: 08-08-2022 09:05-0500 Body surface area Derived from formula 1.59 m2 Hanh Madrigal Work Phone: [facility] Work Phone: 08-08-2022 09:05-0500 Body weight 57.15 kg Hanh L Oberhauser Work Phone: [facility] Work Phone: 08-08-2022 09:05-0500 Diastolic blood pressure 70 mm[Hg] Hanh L Oberhauser Work Phone: [facility] Work Phone: 08-08-2022 09:05-0500 Heart rate 69 /min Hanh L Oberhauser Work Phone: [facility] Work Phone: 08-08-2022 09:05-0500 Systolic blood pressure 109 mm[Hg] Hanh L Oberhauser Work Phone: [facility] Work Phone: 04-19-2021 08:26-0400 Body height 160.02 cm Hanh David Oberhauser Work Phone: [facility] Work Phone: 04-19-2021 08:26-0400 Body mass index (BMI) [Ratio] 23.74 kg/m2 Hanh David Oberhauser Work Phone: [facility] Work Phone: 04-19-2021 08:26-0400 Body surface area Derived from formula 1.63 m2 Hanh Hernandez Oberhauser Work Phone: [facility] Work Phone: 04-19-2021 08:26-0400 Body temperature 97.8 [degF] Hanh L Oberhauser Work Phone: [facility] Work Phone: 04-19-2021 08:26-0400 Body weight 60.78 kg Hanh L Oberhauser Work Phone: [facility] Work Phone: 04-19-2021 08:26-0400 Diastolic blood pressure 70 mm[Hg] Hanh Roweer Work Phone: [facility] Work Phone: 04-19-2021 08:26-0400 Heart rate 67 /min Hanh Madrigal Work Phone: [facility] Work Phone: 04-19-2021 08:26-0400 Systolic blood pressure 115 mm[Hg] Hanh Madrigal Work Phone: [facility] Work Phone: 07-05-2020 08:27-0500 BMI (Body Mass Index) 21.26 kg/m2 [facility] 07-05-2020 08:27-0500 Body Temperature 98.4 [degF] [facility] 07-05-2020 08:27-0500 Body weight 54.43 kg [facility] 07-05-2020 08:27-0500 BP Diastolic 86 mm[Hg] [facility] 07-05-2020 08:27-0500 BP Systolic 120 mm[Hg] [facility] 07-05-2020 08:27-0500 Height 160 cm [facility] 07-05-2020 08:27-0500 Pulse (Heart Rate) 89 /min [facility] 07-05-2020 08:27-0500 Pulse Oximetry 96 % [facility] 07-05-2020 08:27-0500 Respiratory Rate 16 /min [facility] 07-02-2020 15:45-0500 BP Diastolic 83 mm[Hg] [facility] 07-02-2020 15:45-0500 BP Systolic 124 mm[Hg] [facility] 07-02-2020 15:45-0500 Pulse Oximetry 98 % [facility] 07-02-2020 13:55-0500 Pulse (Heart Rate) 85 /min [facility] 07-02-2020 13:55-0500 Respiratory Rate 16 /min [facility] 07-02-2020 08:27-0500 Body Temperature 98.01 [degF] [facility] 07-02-2020 08:26-0500 BMI (Body Mass Index) 21.26 kg/m2 [facility] 07-02-2020 08:26-0500 Body weight 54.43 kg [facility] 07-02-2020 08:26-0500 Height 160 cm [facility] 09-06-2019 10:49-0500 BMI (Body Mass Index) 24.09 kg/m2 [facility] 09-06-2019 10:49-0500 Body Temperature 97.5 [degF] [facility] 09-06-2019 10:49-0500 Body weight 61.69 kg [facility] 09-06-2019 10:49-0500 BP Diastolic 80 mm[Hg] [facility] 09-06-2019 10:49-0500 BP Systolic 110 mm[Hg] [facility] 09-06-2019 10:49-0500 Pulse (Heart Rate) 113 /min [facility] 08-28-2019 08:00-0500 Respiratory Rate 14 /min Corey Marie [facility] 08-28-2019 06:52-0500 Body Temperature 98.1 [degF] Corey Marie [facility] 08-28-2019 06:52-0500 BP Diastolic 69 mm[Hg] Corey Marie [facility] 08-28-2019 06:52-0500 BP Systolic 107 mm[Hg] Corey Marie [facility] 08-28-2019 06:52-0500 Pulse (Heart Rate) 77 /min Corey Marie [facility] 08-28-2019 06:52-0500 Pulse Oximetry 96 % Corey Marie [facility] 08-27-2019 13:54-0500 BMI (Body Mass Index) 24.8 kg/m2 Corey Frank [facility] 08-27-2019 13:54-0500 Body weight 63.5 kg Corey Frank [facility] 08-27-2019 13:54-0500 Height 160 cm Corey Marie [facility] 08-27-2019 01:18-0500 BP Diastolic 78 mm[Hg] Mendoza Hull [facility] 08-27-2019 01:18-0500 BP Systolic 137 mm[Hg] Mendoza Hull [facility] 08-27-2019 01:18-0500 Pulse (Heart Rate) 54 /min Mendoza Hull [facility] 08-27-2019 01:18-0500 Pulse Oximetry 99 % Mendoza Hull [facility] 08-27-2019 01:18-0500 Respiratory Rate 15 /min Mendoza Hull [facility] 08-26-2019 23:55-0500 Body Temperature 97.7 [degF] Mendoza Hull [facility] 02-11-2019 21:51-0400 Body Temperature 98.01 [degF] Hanh [facility] 02-11-2019 21:51-0400 BP Diastolic 56 mm[Hg] Hanh [facility] 02-11-2019 21:51-0400 BP Systolic 98 mm[Hg] Hanh [facility] 02-11-2019 21:51-0400 Pulse (Heart Rate) 98 /min Hanh [facility] 02-11-2019 21:51-0400 Respiratory Rate 18 /min Hanh [employer] 02-11-2019 21:42-0400 Pulse Oximetry 100 % Hanh [employer] 02-11-2019 19:48-0400 BMI (Body Mass Index) 25.51 kg/m2 Hanh [employer] 02-11-2019 19:48-0400 Body weight 65.32 kg Hanh [employer] 02-11-2019 19:48-0400 Height 160 cm Hanh Localler [employer] Encounters Encounter Date Encounter Type Care Provider Facility Start: 05-28-2025 ambulatory Audi Butcher Facility :[facility] Start: 04-17-2025 ambulatory Audi L Shyam Facility :[facility] Start: 04-04-2025 End: 04-04-2025 ambulatory Audi L Shyam [facility] Start: 04-04-2025 End: 04-04-2025 Patient encounter procedure [facility] DONAHUE [facility] Work Phone: Start: 03-25-2025 ambulatory AUDI VIVEK BUTCHER [facility] Start: 03-20-2025 End: 03-20-2025 Patient encounter procedure Mercy Avendano [facility] Work Phone: Start: 03-20-2025 End: 03-20-[address] Hanh Madrigal DO Work Phone: [facility] Start: 03-20-2025 End: 03-20-2025 ambulatory AUDI GAYTANAbida BUTCHER [facility] Start: 03-07-2025 End: 03-07-[address] Jyothi Lacey MD -[facility] Work Phone: Start: 03-07-2025 End: 03-07-[address] Hanh Madrigal DO Work Phone: [facility] Start: 03-07-2025 End: 03-07-2025 ambulatory Hanh Madrigal Facility:[facility] Start: 02-14-2025 End: 02-14-2025 Patient encounter procedure Mercy Avendano [facility] Work Phone: Start: 02-14-2025 End: 02-14-[address] Hanh Madrigal DO Work Phone: [facility] Start: 01-17-2025 End: 01-17-2025 Patient encounter procedure Xiomara Garner [facility] Work Phone: Start: 01-17-2025 End: 01-17-[address] Hanh Madrigal DO Work Phone: [facility] Start: 12-31-2024 End: 12-31-2024 ambulatory LESLY VALDEZ [facility] Start: 12-16-2024 End: 12-16-2024 Patient encounter procedure Mercy Avendano [facility] Work Phone: Start: 12-16-2024 End: 12-16-[address] Hanh Madrigal DO Work Phone: [facility] Work Phone: Start: 12-16-2024 End: 12-16-2024 [facility] Start: 11-22-2024 End: 11-22-[address] Mariely Nash DO -[facility] Work Phone: Start: 11-22-2024 End: 11-22-[address] Hanh Madrigal DO Work Phone: [facility] Work Phone: Start: 11-22-2024 End: 11-22-[address] [facility] Start: 11-01-2024 End: 11-01-[address] Hanh Madrigal DO Work Phone: [facility] Work Phone: Start: 11-01-2024 End: 11-01-2024 Patient encounter procedure Mercy Avendano [facility] -Lab, [facility] Start: 11-01-2024 End: 11-01-2024 ambulatory [facility] Facility:[facility] Start: 10-25-2024 End: 10-25-2024 Patient encounter procedure Mercy Avendano [facility] -Laboratory, [facility] Work Phone: Start: 10-25-2024 End: 10-25-2024 Patient encounter procedure Meryc Avendano CNM -[facility] Work Phone: Start: 10-25-2024 End: 10-25-2024 ambulatory Hanh [facility] Facility:[facility] Start: 10-25-2024 End: 10-25-2024 ambulatory Mercy Avendano Facility:[facility] Start: 10-11-2024 End: 10-11-2024 Orders Only Audi Butcher CNP Work Phone: [facility] Start: 10-07-2024 End: 10-07-2024 Adonis Dumont LPN [facility] Comment on above: B12 deficiency (Prim ross Dx) Start: 10-03-2024 End: 12-03-2024 Follow-up encounter Audi Butcher RICE FARMER Work Phone: [facility] Comment on above: Lipid Panel, Compreh ensive Metabolic Panel, CBC Auto Differential, Additional followed-up results: 2 Start: 09-26-2024 End: 09-26-2024 ambulatory AUDI BUTCHER [facility] Start: 09-26-2024 End: 09-26-2024 Encounter for general adult medical examination without abnormal findings AUDI BUTCHER [facility] Start: 09-02-2024 End: 09-02-2024 Office outpatient visit 15 minutes Colt Pardo DO Work Phone: [facility] Comment on above: Bile salt-induced di arrhea (HHS-HCC) (Primary Dx) Start: 09-02-2024 End: 09-02-2024 ambulatory [facility] Start: 06-13-2024 End: 06-13-2024 ambulatory [facility] Start: 06-03-2024 End: 06-03-2024 Office outpatient new 30 minutes Colt Pardo DO Work Phone: [facility] Comment on above: Bile salt-induced di arrhea (HHS-HCC) (Primary Dx); Functional diarrhea Start: 06-03-2024 End: 06-03-2024 ambulatory [facility] Start: 05-13-2024 End: 05-13-2024 Emergency department patient visit HANH MADRIGAL [facility] Start: 05-08-2024 End: 05-08-2024 ambulatory [facility] Start: 05-06-2024 End: 05-06-2024 ambulatory [facility] Start: 05-06-2024 End: 05-06-2024 Patient encounter status Hanh Madrigal DO Work Phone: [facility] Work Phone: Start: 05-06-2024 End: 05-06-2024 Periodic preventive med est patient 18-39 yrs Hanh Madrigal DO Work Phone: [facility] Comment on above: B12 deficiency (Prim ross Dx); Wellness examination Start: 04-26-2024 End: 04-26-2024 ambulatory HANH MADRIGAL [facility] Start: 04-17-2024 End: 04-17-2024 ambulatory JAYY Villa [facility] Start: 04-03-2024 End: 04-03-2024 ambulatory SELF REFERRED [facility] Start: 03-27-2024 End: 03-27-2024 ambulatory SELF REFERRED [facility] Start: 03-20-2024 End: 03-20-2024 ambulatory SELF REFERRED [facility] Start: 11-03-2023 End: 11-03-[address] Hanh Madrigal Work Phone: [facility] Work Phone: Start: 11-03-2023 End: 11-03-[address] Hanh Madrigal Work Phone: [facility] Work Phone: Start: 10-30-2023 End: 10-30-[address] Hanh Madrigal Work Phone: [facility] Work Phone: Start: 10-30-2023 End: 10-30-2023 Patient encounter status Hanh Madrigal DO Work Phone: [facility] Work Phone: Start: 10-30-2023 End: 10-30-2023 Periodic preventive med est patient 18-39 yrs Hanh Madrigal DO Work Phone: [facility] Comment on above: Anxiety (Primary Dx) ; Wellness examination; Screening for lipid disorders; Vitamin B 12 deficiency Start: 10-30-2023 End: 10-30-2023 ambulatory [facility] Start: 10-30-2023 End: 10-30-2023 Encounter for general adult medical examination without abnormal findings [facility] Start: 10-18-2023 End: 10-18-[address] Hanh Madrigal Work Phone: [facility] Work Phone: Start: 10-04-2023 End: 10-04-[address] Hanh Madrigal Work Phone: [facility] Work Phone: Start: 09-30-2023 End: 09-30-2023 ambulatory [facility] Start: 09-30-2023 End: 09-30-2023 Encounter for general adult medical examination without abnormal findings [facility] Start: 09-18-2023 End: 09-18-[address] Hanh Madrigal Work Phone: [facility] Work Phone: Start: 09-18-2023 End: 09-18-[address] Hanh Madrigal Work Phone: [facility] Work Phone: Start: 08-21-2023 End: 08-21-[address] Hanh Madrigal Work Phone: [facility] Work Phone: Start: 07-28-2023 End: 07-28-[address] Hanh Madrigal Work Phone: [facility] Work Phone: Start: 06-28-2023 End: 06-28-[address] Hanh Madrigal Work Phone: [facility] Work Phone: Start: 05-22-2023 End: 05-22-[address] Hanh Madrigal Work Phone: [facility] Work Phone: Start: 05-20-2023 End: 05-20-[address] Hanh Madrigal Work Phone: [facility] Work Phone: Start: 05-20-2023 End: 05-20-[address] [facility] Start: 05-01-2023 End: 05-01-2023 Office outpatient visit 15 minutes Hanh Madrigal DO Work Phone: [facility] Comment on above: B12 deficiency (Prim ross Dx) Start: 04-28-2023 End: 04-28-[address] Hanh Madrigal Work Phone: [facility] Work Phone: Start: 04-28-2023 End: 04-28-[address] Han[facility] Mad[facility] Work [facility]: Start: 04-28-2023 End: 04-28-[address] Hanh Madrigal Work Phone: [facility] Work Phone: Start: 04-05-2023 End: 04-05-[address] [facility] Start: 04-03-2023 End: 04-03-[address] 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 Hanh Madrigal Facility:[id number] Start: 02-07-[address] Hanh Madrigal Facility:[id number] Start: 09-28-2021 End: 09-28-2021 Patient encounter procedure [facility] Start: 08-23-[address] Hanh Madrigal Facility:[id number] Start: 04-19-2021 Office outpatient vi sit 25 minutes Hanh Madrigal Work Phone: [facility] Work Phone: Start: 04-07-2021 Rx Renewal Hanh lees Work Phone: [facility] Work Phone: Start: 07-05-2020 End: 07-05-2020 Emergency department patient visit Teresa Stack Work Phone: [facility] Comment on above: Exposure to COVID-19 virus (Primary Dx); Acute URI Start: 07-02-2020 End: 07-02-2020 [email or web address] Start: 07-02-2020 End: 07-02-2020 Emergency department patient visit Yannick Rene Work Phone: [facility] Comment on above: Right ovarian pregna ncy without intrauterine (Primary Dx) Start: 09-06-2019 End: 09-06-2019 Postop follow up visit related to original px Kendell Mcguire Work Phone: [facility] Comment on above: Encounter for surgic al aftercare following surgery of digestive system (Primary Dx) Start: 08-27-2019 End: 08-28-2019 Patient encounter procedure KENDELL Hewitt [facility] Start: 08-27-2019 End: 08-28-2019 Emergency department patient visit Corey Kevin Marie Work Phone: [facility] Comment on above: Acute cholecystitis (Primary Dx); Post-op pain; Calculus of gallbladder with acute cholecystitis and obstruction Start: 08-27-2019 End: 08-27-2019 Emergency department patient visit [facility] Start: 08-26-2019 End: 08-27-2019 Emergency department patient visit Mendoza Becker Della Work Phone: [facility] Comment on above: Gallbladder colic (P rimary Dx); Right upper quadrant abdominal pain; Nausea; Gallbladder sludge Start: 02-11-2019 End: 02-11-2019 Emergency department patient visit Hanhabida [facility] Start: 08-08-2018 End: 08-09-2018 Patient encounter procedure Hanh Madrigal [facility] Start: 08-08-2018 End: 08-09-2018 [facility] Start: 07-30-2018 End: 07-31-2018 Patient encounter procedure [facility] Facility:[facility] Start: 07-25-2018 End: 07-25-2018 Patient encounter procedure [facility] Facility:[facility] Start: 07-24-2018 End: 07-25-2018 Patient encounter procedure Lilliam Wyatt Facility:[facility] Start: 07-16-2018 Patient encounter procedure Lilliam Wyatt [facility] Start: 07-12-2018 End: 07-13-2018 Patient encounter procedure Lilliam Wyatt [facility] Start: 07-02-2018 End: 07-03-2018 Patient encounter procedure Hanh Madrigal Facility:[facility] Start: 06-07-2018 End: 06-08-2018 Patient encounter procedure Hanh Madrigal Facility:[facility] Start: 06-05-2018 End: 06-06-2018 Patient encounter procedure Hanh Madrigal [facility] Start: 05-16-2018 Patient encounter procedure Hanh Madrigal Facility:[facility] Start: 01-04-2018 End: 01-05-2018 [facility] Start: 12-13-2017 End: 12-14-2017 Patient encounter procedure Samreen John Facility:[facility] Start: 11-28-2017 End: 11-29-2017 [facility] Procedures Date Procedure Procedure Detail Performing Clinician Start: 03-20-[address] Hanh Madrigal DO Work Phone: Comment on above: Test Ordered: [id number] Bile Acids, Fractio nated LCMSUrsodeoxycholic Acids <0.10 umol/L ES Reference Range: .Reference Range:All Ages: <1.9Cholic Acids 1.5 umol/L ES Reference Range: .Reference Range:All Ages: <2.2Chenodeoxycholic Acids 1.1 umol/L ES Reference Range: .Reference Range:All Ages: <5.8Deoxycholic Acids 1.2 umol/L ES Reference Range: .Reference Range:All Ages: <3.3Total Bile Acids 3.8 umol/L ES Reference Range: .This test was developed and its performance characteristicsdetermined by [employer]. It has not been cleared or approvedby the Food and Drug Administration.Reference Range:All Ages: <9.2Performed at: ES - [facility] [id number] [place], [place] [id number] Director: Shane Snell MD, Phone: [phone] at: CB - [facility] [id number] [place], [place] [id number] Director: Wade Pimentel PhD, Phone: [phone] Start: 03-07-2025 Serologic test for syphilis Dr. Hanh Madrigal DO Work Phone: Start: 11-01-2024 Hepatitis C antibody measurement Dr. Mary Madrigal DO Work Phone: Comment on above: Reactive: Presumptive evidence of antibo dies to HCV. Follow CDC recommendations for supplemental testing.Non-Reactive: Antibodies to HCV were not detected; does not exclude the possibility of exposure to HCVReactive Results are presumptive evidence of antibodies to HCV. Follow CDC recommendations for supplemental testing.Order confirmation testing: HCV Quant by PCR testing - HCVPCR #[id number] Non Reactive: < 0.8 Equivocal: >/= 0.8 to < 1.0 Reactive: >/= 1.0The CDC requires that a reactive/equivocal HCV antibody result be sent out for confirmation. HCV Quant by PCR testing. Start: 11-01-[address] Hanh Madrigal DO Work Phone: Start: 11-01-[address] Hanh Madrigal DO Work Phone: Comment on above: Antibody Result: InterpretationNon-React zachary: Non-ImmuneReactive: ImmuneThe following results were obtained with the [employer] Rubella IgG assay. Results from assays of other manufacturers cannot be used interchangeably. Start: 11-01-2024 Serologic test for syphilis Dr. Hanh Madrigal DO Work Phone: Start: 10-25-2024 Liquid based cervical cytology screening Dr. Hanh Madrigal DO Work Phone: Comment on above: NEGATIVE FOR INTRAEPITHELIAL LESION OR M ALIGNANCY. This liquid based Th inPrep(R) pap test was screened withthe use of an image guided system. The HPV DNA reflex c riteria were not met with this specimenresult therefore, no HPV testing was performed.Performed at: [address] [place], [place] [id number] Director: Yu Martin MD, Phone: [phone] Start: 10-25-[address] Hanh Madrigal DO Work Phone: Start: 09-02-2024 Follow-up visit Follow-up COLT R EDVIN Start: 04-26-2024 Lipid 1996 panel - Serum or Plasma Hanh Madrigal DO Work Phone: Start: 11-03-2023 Ultrasound scan for growth Dr. Mary Madrigal Work Phone: Start: 09-30-2023 Comprehensive metabolic 2000 panel - Serum or Plasma HANH MADRIGAL Start: 09-30-2023 Cyanocobalamin vitamin b-12 HNAH OBERHA USER Start: 09-30-2023 Hemoglobin A1c/Hemoglobin.total in Blood HANH MADRIGAL Start: 09-30-2023 Lipid panel HANH MADRIGAL Start: 09-30-2023 Lipid 1996 panel - Serum or Plasma Hanh Madrigal DO Work Phone: Start: 04-28-[address] Hanh Madrigal Work Phone: Start: 08-24-2022 Bilateral mammography Start: 08-24-2022 Ultrasonography of breast Start: 09-28-2021 Microscopic observation [Identifier] in Cervix by Cyto stain Hanh Madrigal DO Work Phone: Start: 09-14-2020 Microscopic observation [Identifier] in Cervix by Cyto stain Hanh Madrigal DO Work Phone: Start: 07-05-2020 COVID-19, MOLECULAR Teresa Stack Work Phone: Start: 07-02-2020 Transvaginal obstetric ultrasonography Linda Greenwood Work Phone: Start: 07-02-2020 ABO and Rh group [Type] in Blood Linda Greenwood Work Phone: Start: [...] Rene Work Phone: Start: 07-02-2020 Hepatic function 2000 panel - Serum or Plasma Yannick Rene Work Phone: Start: 07-02-2020 LAVENDER TOP Yannick Rene Work Phone: Start: 07-02-2020 Lipase [Enzymatic activity/volume] in Serum or Plasma Yannick Rene Work Phone: Start: 07-02-2020 MINT GREEN TOP Yannick Rene Work Phone: Start: 07-02-2020 RAINBOW DRAW Yannick Rene Work Phone: Start: 08-28-2019 Basic metabolic 2000 panel - Serum or Plasma Cindy Hutson Baldev Work Phone: Start: 08-28-2019 Complete blood count (hemogram) panel - Blood by Automated count Cindy Arnaldoetta Baldev Work Phone: Start: 08-27-2019 End: 08-27-2019 CHOLECYSTECTOMY LAPAROSCOPIC Kendell N. S pequannock Work Phone: Start: 08-27-2019 RAINBOW DRAW Concepcion Arceo Work Phone: Start: 08-27-2019 URINE CONTAINER Concepcion Corey Arceo Work Phone: Start: 08-27-2019 Basic metabolic 2000 panel - Serum or Plasma Concepcion Arceo Work Phone: Start: 08-27-2019 Choriogonadotropin.beta subunit ( test) [Presence] in Serum or Plasma Concepcion Arceo Work Phone: Start: 08-27-2019 Complete blood count with white cell differential, automated Concepcion Arceo Work Phone: Start: 08-27-2019 Complete blood count with white cell differential, manual Concepcion Arceo Work Phone: Start: 08-27-2019 Hepatic function 2000 panel - Serum or Plasma Concepcion Arceo Work Phone: Start: 08-27-2019 US scan of upper abdomen Corey Kevin Marie Work Phone: Start: 08-27-2019 Ct angiography chest w/contrast/noncontrast Mendoza Hull Work Phone: Start: 08-27-2019 Standard chest X-ray Mendoza Hull Work Phone: Start: 08-27-2019 US scan of upper abdomen Mendoza Toussaint Work Phone: Start: 08-27-2019 Choriogonadotropin ( test) [...] Hull Work Phone: Start: 08-27-2019 Hepatic function 2000 panel - Serum or Plasma Mendoza Hull Work Phone: Start: 08-27-2019 Lipase [Enzymatic activity/volume] in Serum or Plasma Mendoza Becker Della Work Phone: Start: 02-12-2019 Urinalysis microscopic only Michelle cullen Work Phone: Start: 02-12-2019 URINALYSIS, MACRO Michelle Longoria Work Phone: Start: 02-12-2019 Assay of lipase Michelle Longoria Work Phone: Start: 02-12-2019 CBC, EDIF, PLATELET Michelle Longoria Work Phone: Start: 02-12-2019 Comprehensive metabolic panel Michelle Longoria Work Phone: No history of surgery Hanh Madrigal Work Phone: Plan of Treatment Date Care Activity Detail Author Start: 2045 Zoster Vaccines (1 of 2) Zoste r Vaccines (1 of 2) [facility] Start: 10-05-2033 DTaP/Tdap/Td Vaccine s (10 - Td or Tdap) DTaP/Tdap/Td Vaccines (10 - Td or Tdap) [facility] Start: 10-05-2033 DTaP/Tdap/Td Vaccine s (9 - Td or Tdap) DTaP/Tdap/Td Vaccines (9 - Td or Tdap) [facility] Start: 10-05-2033 Tetanus vaccination Tetanus: Every 1 0yrs [facility] Start: 04-26-2029 Lipid panel Lipid Panel [facility] Start: 09-29-2028 Lipid panel Lipid Panel [facility] Start: 09-30-2025 End: 09-30-2025 Patient encounter procedure 09/30/2025 3:00 PM EDT Office Visit [facility] [address] [place] [phone] Audi Butcher, RICE FARMER [address] [place] [phone] [facility] Start: 09-30-2025 COVID-19 Vaccine ( season) COVID-19 Vaccine ( season) [facility] Comment on above: Postponed from 03/03 (Treatment Not Available) Start: 09-26-2025 Depression screening using PHQ-9 (Patient Health Questionnaire 9) score Depression Screening/Follow-Up (PHQ-2/9) [facility] Start: 09-26-2025 Hepatitis C screening Hepatitis C [facility] Comment on above: Postponed from 05/05 (Patient Refused) Start: 09-26-2025 History and physical examination, annual for health maintenance Wellness Visit [facility] Start: 09-26-2025 HIV screening HIV Screening [facility] Comment on above: Postponed from 05/05 (Patient Refused) Start: 06-18-2025 [facility] Start: 05-12-2025 End: 05-12-2025 Patient encounter procedure 05/12/2025 8:20 AM EST Office Visit [facility] [address] [facility] [address] [place] [phone] Hanh Madrigal L, DO [address] [facility] Physician [place], [place] [phone] [facility] Start: 05-07-2025 Yearly Adult Physical Yearly Adult [facility] Start: 04-28-2025 Influenza vaccination Influenz a Vaccine (Season Ended) [facility] Comment on above: Postponed from 03/03 (Patient Refused) Start: 03-20-2025 Comprehensive metabo lic 2000 panel - Serum or Plasma [facility] Start: 03-20-2025 Procedure [facility] Start: 03-07-2025 CBC W Auto Different ial panel - Blood [facility] Start: 03-07-2025 Measurement of gluco se 2 hours after glucose challenge for glucose tolerance test [facility] Start: 03-07-2025 Serologic test for syphilis [facility] Start: 03-07-2025 [facility] Start: 12-16-2024 CBC W Auto Different ial panel - Blood [facility] Start: 12-16-2024 Comprehensive metabo lic 2000 panel - Serum or Plasma [facility] Start: 10-30-2024 Yearly Adult Physical Yearly Adult P hysical [facility] Start: 09-28-2024 Screening for malign ant neoplasm of cervix [facility] Start: 09-02-2024 End: 09-02-2024 Patient encounter procedure 09/02/2024 2:45 PM EST Office Visit [facility] [address] [place] [phone] Colt Pardo DO [address] [facility] [place] [address] [facility] Start: 06-03-2024 End: 08-04-2024 Celiac Panel Celiac Panel Lab Routine Functional diarrhea Expected: 06/03/2024 (Approximate), Expires: 08/04/2024 [facility] Service Area Work Phone: Comment on above: Expected: 06/03/2024 (Approximate), Expires: 08/04/2024 Start: 05-06-2024 End: 05-06-2024 Patient encounter procedure 05/06/2024 8:40 AM EST Office Visit [facility] [address] [phone] Hanh Madrigal, DO [address] [facility] Physician [place] [phone] [facility] Start: 03-03-2024 COVID-19 Vaccine ( season) COVID-19 Vaccine ( season) [facility] Start: 03-03-2024 Influenza vaccination Influenza Vacc ine (#1) [facility] Start: 10-30-2023 End: 10-29-2024 Cobalamin (Vitamin B12) [Mass/volume] in Serum or Plasma Vitamin B12 Lab Routine Vitamin B 12 deficiency Expected: 10/30/2023 (Approximate), Expires: 10/29/2024 [facility] Work Phone: Comment on above: Expected: 10/30/2023 (Approximate), Expires: 10/29/2024 Start: 10-30-2023 End: 10-29-2024 Lipid 1996 panel - Serum or Plasma Lipid Panel Lab Routine Screening for lipid disorders Expected: 10/30/2023 (Approximate), Expires: 10/29/2024 [facility] Service Area Work Phone: Comment on above: Expected: 10/30/2023 (Approximate), Expires: 10/29/2024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 patient in pain?: No Allergies nitrofurantoin (From Macrobid) Allergy (Unknown, Verified 02/14/25 11:24) Hives nickel Allergy (Verified 02/14/25 11:24) Rash Sulfa (Sulfonamide Antibiotics) Allergy (Verified 02/14/25 11:24) Hives Medications ?Medication ?Instructions ?Recorded ?Confirmed ?Type docosahexaenoic acid 200 mg 200 mg PO DAILY 10/30/23 0 02/14/25 History capsule ( DHA) aspirin 81 mg tablet,delayed 81 mg PO QDAY 10/10/24 History release cholestyramine (with sugar) 4 gram ea PO 10/10/2401/31 History oral powder mecobalamin (vitamin B12) 10,000 mcg IM 10/10/2402/14 History mcg solution for injection ondansetron 4 mg disintegrating 4 mg PO Q6H PRN nausea and 10/10/24 02/14/25 Rx tablet vomiting #90 tabs sertraline 50 mg tablet (Zoloft) 50 mg PO QDAY #60 tab s 02/14/25 02/14/25 Rx Last Menstrual Period: 08/21/24 : No PFSH PFSH Medical History Preeclampsia, severe Large for dates affecting management of mother (spontaneous vaginal delivery) Retained placenta Abnormal Pap smear of cervix History of pre-term labor Retained placenta or membranes Headache Ectopic Pre-eclampsia Herpes genitalis Migraines Anemia affecting Anxiety Surgical History Bement teeth removed Hx of cholecystectomy Family History Father Squamous cell carcinoma Mother Hyperlipidemia Brother Seizures Grandmother Breast cancer Social History adopted: No household members: family and children housing: house number of children: 3 current occupational status: unemployed current occupation: [employer] pets and animals: Yes pets and animals: dog(s) history of recent travel: No Smoking Status: Never smoker alcohol intake: never substance use type: does not use caffeine: Yes what type of physical activity do you participate in: none sandra/mosque: Uatsdin seatbelt use: always do you feel safe at home: Yes 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 Date Name GA/Weeks Outcome Route Bth Weight Gen Labor Lgth Anesthesia Del Locatn Provider FOB 07/24/15 [place] 39 live - full term 6lbs 9oz Female epidural [facility] Dr. Edna Brambila 07/08/19 [place] 37 live - full term 8lbs 6oz Male [facility] Dr. Edna Bethea Sven 11/17/23 Kimmie 36 live - 6lbs 15oz Female [facility] Xiomara Ugalde Delivery Date: 07/24/15 Last Updated by: Lissa Ngo No issues during or delivery Delivery Date: 07/08/19 Last Updated by: Lissa Ngo Went into pre-term labor at 36 weeks but was able to stop labor. Developedpre- eclampsia and was induced at 37 weeks. Retained placenta, curettage immediately after delivery Delivery Date: 11/17/23 Last Updated by: Lissa Ngo COVID, LGA, severe pre-e HPI 25 wk ob Details: HANH RM is a 29 year old who presents for routine OB visit. OB Visit ANNA Calculator Estimated Delivery Date Method Current WG Current Estimate 05/28/25 LMP (Certain) 25w 2d Expected Delivery Route/Plan Labor Preferences- CB/BF [...] current plan of care details and appropriate ordersplaced. Relevant counseling for the gestational age provided. [...] (+6 oz) 119/79 Negative -?-?-?-?-?-?-?-?-?-?-?-?- Negative 170 -?-?-?-?-?-?-?-?-?-?-?-?- JV- CRL still co nsistent with LMP. has very slight increase in ALT and elevate d b12 (due to injection the day prior) will repeat labs today. 12/16/24 -?-?-?-?-?-?-?-?-?-?-?-?- 16w 5d 157 lb (+5 lb) 119/80 Negative -?-?-?-?-?-?-?-?-?-?-?-?- Negative 155 -?-?-?-?-?-?-?-?-?-?-?-?- KW- repeat liver enzymes today. US scheduled. no vb/cramping. no flutters yet 01/17/25 -?-?-?-?-?-?-?-?-?-?-?-?- 21w 2d 162 lb (+10 lb) 119/76 Trace -?-?-?-?-?-?-?-?-?-?-?-?- Negative 145 -?-?-?-?-?-?-?-?-?-?-?-?- LC- normal anato my. feeling occ flutters. no vb/cramping. 02/14/25 -?-?-?-?-?-?-?-?-?-?-?-?- 25w 2d 166 lb 6 oz (+14 lb 6 oz) 116/83 Negative -?-?-?-?-?-?-?-?-?-?-?-?- Negative 140 25 -?-?-?-?-?-?-?-?-?-?-?-?- KW- no vb/crampi ng. good fm. Patient tearful today and feels that she needs to go back on zoloft. She said she feels very emotional at home and is crying all the time for no reason-Zoloft 50mg sent into pharmacy. ACOG First Trimester First Trimester: Desire for , Alcohol, Tobacco Cessation, Illicit/Recreational Drug/Substance Use, Intimate Partner Violence, Barriers to care, Unstable Housing, Communication Barriers, Environmental/Work Hazards, Anticipated Course of Care, Toxoplasmosis Precations, Use of Any med ications, Sexual activity, Exercise, Dental Care, Sauna/Hot tub [...] Movement Monitoring, Signs and Symptoms of Preeclampsia, [place] Education and Family Medical Leave or Disability [...] Negative Last Edit by Daysi Alva on 02/14/25 11:33 Office Urine Protein Negative Last Edit by Daysi Alva on 02/14/25 11:33 Coding Level of Care Code OB Routine Diagnoses Elevated liver enzymes R74.8 Low vitamin B12 level R79.89 Retained placenta or membranes O73.1 Ectopic O00.90 Supervision of high-risk O09.90 25 weeks gestation of Z3A.25 Weeks of gestation: 25 weeks Abnormal Pap smear of cervix R87.619 History of herpes genitalis Z86.19 Preeclampsia, severe O14.10 Assessment and Plan Assessment [...] : Status: Acute Qualifiers: Weeks of gestation: 25 weeks Qualified Code(s): Z3A.25 - 25 weeks gestation of Comment: NIPT w gender- low risk, male, carrier- declines, nl anatomy (7) Abnormal Pap smear of cervix: Status: Acute Comment: LGSIL 09/23/16. all others nl. Pt's Mom total hysterectomy at 36. Pap 10/2024 nl. (8) History of herpes genitalis: Status: Acute Comment: valtrex at 36 weeks, last outbreak 2019 (9) Preeclampsia, severe: Status: Acute Comment: advised to start 81mg ASA daily Elevated ALT with NOB labs. redraw in 4 weeks -needs 34 week Orders: Orders POC Urinalysis 2 Dip (Clinic) Today O09.90 - Supervision of high risk , unspecified, unspecified trimester, Z3A.25 - 25 weeks gestation of CBC W/Diff, Automated Today O09.90 - Supervision of high risk , unspecified, unspecified trimester, Z3A.25 - 25 weeks gestation of Glucose Challenge Gest 1H 50g Today O09.90 - Supervision of high risk , unspecified, unspecified trimester, Z13.1 - Encounter for screening for diabetes mellitus, Z3A.25 - 25 weeks gestationof HIV Today O09.90 - Supervision of high risk , unspecified, unspecified trimester, Z3A.25 -25 weeks gestation of Syphilis Antibodies Today O09.90 - Supervision of high risk , unspecified, unspecified trimester, Z3A.25 - 25 weeks gestation of Medications: New sertraline (Zoloft) 50 mg PO QDAY 60 tabs 3RF Plan Details Additional Comments: ACOG trimester education reviewed and updated. see problem list details for updated plan management information and see below for orders placed atthis visit. GA appropriate handout given. 02/14/25 1145 s CNM> Date _ Mer[facility] Sahil LUNSFORD Cosigner Signature: Date (if applicable) CC: ~ [facility]06-16-2025 Evaluation note* Diagnosis Onset Date Resolution Status Admit Date Abnormal Pap smear of cervix acute December 16, 2024 1:21pm Ectopic acute December 162024 1:21pm Elevated liver enzymes acute Ju ne 2024 1:21pm History of herpes genitalis acute December 16, 2024 1:21pm Preeclampsia, severe acute December 16, 2024 1:21pm acute December 16 1:21pm Retained placenta or membranes acute December 16, 2024 1:21pm Supervision of high-risk acute December 16, 2024 1:21pm Low vitamin B12 level resolved Galen e 2024 1:21pm Abnormal Pap smear of cervix acute January 17, 2025 10:03am Ectopic acute January 172024 10:03am Elevated liver enzymes acute Ju ly 2024 10:03am History of herpes genitalis acute January 17, 2025 10:03am Preeclampsia, severe acute January 17, 2025 10:03am acute January 17 10:03am Retained placenta or membranes acute January 17, 2025 10:03am Supervision of high-risk acute January 17, 2025 10:03am Low vitamin B12 level resolved Dec 10:03am Abnormal Pap smear of cervix acute February 14, 2025 11:23am Ectopic acute February 14, 2025 11:23am Elevated liver enzymes acute Au iris 2024 11:23am History of herpes genitalis acute February 14, 2025 11:23am Preeclampsia, severe acute Augu st 2024 11:23am acute February 14, 2 025 11:23am Retained placenta or membranes acute February 14 11:23am Supervision of high-risk acute February 14 11:23am Low vitamin B12 level resolved Aug ust 2024 11:23am Abnormal Pap smear of cervix acute March 07, 2025 2:33pm Ectopic acute Septemb er 2024 2:33pm Elevated liver enzymes acute Se ptember 2024 2:33pm History of herpes genitalis acute March 07, 2025 2:33pm Preeclampsia, severe acute Mar emb2024 2:33pm acute March 07, 2025 2:33pm Retained placenta or membranes acute March 07, 025 2:33pm Supervision of high-risk acute March 07, 025 2:33pm Elevated liver enzymes acute Se ptember 2024 9:41am acute March 9:41am [facility] Work Phone: 1([phone]) 541-969506-16-2025 Evaluation note* Diagnosis Onset Date Resolution Status Admit Date Abnormal Pap smear of cervix acute December 16, 2024 1:21pm Ectopic acute December 162024 1:21pm Elevated liver enzymes acute Ju ne 2024 1:21pm History of herpes genitalis acute December 16, 2024 1:21pm Preeclampsia, severe acute December 16, 2024 1:21pm acute December 16 1:21pm Retained placenta or membranes acute December 16, 2024 1:21pm Supervision of high-risk acute December 16, 2024 1:21pm Low vitamin B12 level resolved Galen e 2024 1:21pm Abnormal Pap smear of cervix acute January 17, 2025 10:03am Ectopic acute January 172024 10:03am Elevated liver enzymes acute Ju ly 2024 10:03am History of herpes genitalis acute January 17, 2025 10:03am Preeclampsia, severe acute January 17, 2025 10:03am acute January 17 10:03am Retained placenta or membranes acute January 17, 2025 10:03am Supervision of high-risk acute January 17, 2025 10:03am Low vitamin B12 level resolved Dec y 2024 10:03am Abnormal Pap smear of cervix acute February 14, 2025 11:23am Ectopic acute February 14, 2025 11:23am Elevated liver enzymes acute Au iris 15th, 2025 11:23am History of herpes genitalis acute February 14, 2025 11:23am Preeclampsia, severe acute Augu st 2024 11:23am acute February 14, 025 11:23am Retained placenta or membranes acute February 14 11:23am Supervision of high-risk acute February 14 11:23am Low vitamin B12 level resolved Jan ust 2024 11:23am Abnormal Pap smear of cervix acute March 07, 2025 2:33pm Ectopic acute Septemb er 2024 2:33pm Elevated liver enzymes acute Se pt2024 2:33pm History of herpes genitalis acute March 07, 2025 2:33pm Preeclampsia, severe acute Sept emb2024 2:33pm acute March 07, 2025 2:33pm Retained placenta or membranes acute March 07, 025 2:33pm Supervision of high-risk acute March 07 025 2:33pm Elevated liver enzymes acute Se ptember 2024 9:41am acute March 9:41am Abnormal Pap smear of cervix acute April 04, 2025 9:38am Ectopic acute April 04, 2025 9:38am Elevated liver enzymes acute Oc tober 2024 9:38am History of herpes genitalis acute April 04, 2025 9:38am Preeclampsia, severe acute Octo 2024 9:38am acute April 04, 025 9:38am Retained placenta or membranes acute April 04 9:38am Supervision of high-risk acute April 04 9:38am [facility] Work Phone: 1([phone]) 196-389806-16-2025 [facility] [address] [place] [address], [address] [place] [address] OFFICE VISIT Date of Service: 12/16/24 MR#: [id number] Acct: [id number] Name: HANH RM Rep #: [id number] : 1995 Provider: JONN Avendano Age/Sex: 29/F Location: [facility] Status: Signed Intake Vital Signs 10/25/24 13:03 11/22/24 13:34 12/16/24 13:25 Height 5 ft 3 in 5 ft 3 in 5 ft 3 in Weight: 157 lb BMI 27.8 BP 119/80 Intake Visit Reasons: 17wk ob Chief Complaint: 17wk ob Chief Operator Synthesis Required: No Is patient in pain?: No [...] genitalis Migraines Anemia affecting Anxiety Surgical History Bement teeth removed Hx of cholecystectomy Family History Father Squamous cell carcinoma Mother Hyperlipidemia Brother Seizures Grandmother Breast cancer Social History adopted: No household members: family and children housing: house number of children: 3 current occupational status: unemployed current occupation: [employer] pets and animals: Yes pets and animals: dog(s) history of recent travel: No Smoking Status: Never smoker alcohol intake: never substance use type: does not use caffeine: Yes what type of physical activity do you participate in: none sandra/mosque: Uatsdin seatbelt use: always do you feel safe at home: Yes 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 Date Name GA/Weeks Outcome Route Bth Weight Gen Labor Lgth Anesthesia Del Locatn Provider FOB 07/24/15 [place] 39 live - full term 6lbs 9oz Female epidural [facility] Dr. Edna Brambila 07/08/19 [place] 37 live - full term 8lbs 6oz Male [facility] Dr. Edna Bethea Sven 11/17/23 Kimmie 36 live - 6lbs 15oz Female [facility] Xiomara Ugalde Delivery Date: 07/24/15 Last Updated by: Lissa Ngo No issues during or delivery Delivery Date: 07/08/19 Last Updated by: Lissa Ngo Went into pre-term labor at 36 weeks but was able to stop labor. Developedpre- eclampsia and was induced at 37 weeks. Retained placenta, curettage immediately after delivery Delivery Date: 11/17/23 Last Updated by: Lissa Ngo COVID, LGA, severe pre-e HPI 17wk [...] current plan of care details and appropriate ordersplaced. Relevant counseling for the gestational age provided. [...] of Care, Toxoplasmosis Precations, Use of Any med ications, Sexual activity, Exercise, Dental Care, Sauna/Hot tub [...] information and see below for orders placed atthis visit. [place] appropriate handout given. 12/16/24 1344 s CNM> Date _ Mercy Avendano CNM Cosigner Signature: Date (if applicable) CC: ~ [facility]05-23-2025 Evaluation note* Diagnosis Onset Date Resolution Status Admit Date Abnormal Pap smear of cervix acute November 22, 2024 1:30pm Ectopic acute October 1:30pm Elevated liver enzymes acute Ma y 2024 1:30pm History of herpes genitalis acute November 22, 2024 1:30pm Preeclampsia, severe acute November 22, 2024 1:30pm acute November 22, 2024 1:30pm Retained placenta or membranes acute November 22, 2024 1 :30pm Supervision of high-risk acute November 22, 2024 1 :30pm Low vitamin B12 level resolved November 22, 2024 1:30pm Abnormal Pap smear of cervix acute December 16, 2024 1:21pm Ectopic acute December 162024 1:21pm Elevated liver enzymes acute 2024 1:21pm History of herpes genitalis acute December 16, 2024 1:21pm Preeclampsia, severe acute December 16, 2024 1:21pm acute December 16 1:21pm Retained placenta or membranes acute December 16, 2024 1:21pm Supervision of high-risk acute December 16, 2024 1:21pm Low vitamin B12 level resolved Dec 1:21pm Abnormal Pap smear of cervix acute January 17, 2025 10:03am Ectopic acute January 172024 10:03am Elevated liver enzymes acute Ju 2024 10:03am History of herpes genitalis acute January 17, 2025 10:03am Preeclampsia, severe acute January 17, 2025 10:03am acute January 17 10:03am Retained placenta or membranes acute January 17, 2025 10:03am Supervision of high-risk acute January 17, 2025 10:03am Low vitamin B12 level resolved Pierre y 2024 10:03am Abnormal Pap smear of cervix acute February 14, 2025 11:23am Ectopic acute February 14, 2025 11:23am Elevated liver enzymes acute Au iris 2024 11:23am History of herpes genitalis acute February 14, 2025 11:23am Preeclampsia, severe acute Augu st 2024 11:23am acute February 14, 2 025 11:23am Retained placenta or membranes acute February 14 11:23am Supervision of high-risk acute February 14 11:23am Low vitamin B12 level resolved Aug ust 2024 11:23am Abnormal Pap smear of cervix acute March 07, 2025 2:33pm Ectopic acute Septemb er 2024 2:33pm Elevated liver enzymes acute Se ptember 2024 2:33pm History of herpes genitalis acute March 07, 2025 2:33pm Preeclampsia, severe acute Mar emb2024 2:33pm acute March 07, 2025 2:33pm Retained placenta or membranes acute March 07, 2 025 2:33pm Supervision of high-risk acute March 07, 2 025 2:33pm [facility] Work Phone: 1(498) 550-319905-23-2025 Evaluation note* Diagnosis Onset Date Resolution Status Admit Date Abnormal Pap smear of cervix acute November 22, 2024 1:30pm Ectopic acute October 1:30pm Elevated liver enzymes acute Ma y 2024 1:30pm History of herpes genitalis acute November 22, 2024 1:30pm Preeclampsia, severe acute November 22, 2024 1:30pm acute November 22, 2024 1:30pm Retained placenta or membranes acute November 22, 2024 1 :30pm Supervision of high-risk acute November 22, 2024 1 :30pm Low vitamin B12 level resolved November 22, 2024 1:30pm Abnormal Pap smear of cervix acute December 16, 2024 1:21pm Ectopic acute December 162024 1:21pm Elevated liver enzymes acute Ju ne 2024 1:21pm History of herpes genitalis acute December 16, 2024 1:21pm Preeclampsia, severe acute December 16, 2024 1:21pm acute December 16 1:21pm Retained placenta or membranes acute December 16, 2024 1:21pm Supervision of high-risk acute December 16, 2024 1:21pm Low vitamin B12 level resolved Galen e 2024 1:21pm Abnormal Pap smear of cervix acute January 17, 2025 10:03am Ectopic acute January 172024 10:03am Elevated liver enzymes acute Ju ly 2024 10:03am History of herpes genitalis acute January 17, 2025 10:03am Preeclampsia, severe acute January 17, 2025 10:03am acute January 17 10:03am Retained placenta or membranes acute January 17, 2025 10:03am Supervision of high-risk acute January 17, 2025 10:03am Low vitamin B12 level resolved Dec 10:03am Abnormal Pap smear of cervix acute February 14, 2025 11:23am Ectopic acute February 14, 2025 11:23am Elevated liver enzymes acute Au iris 2024 11:23am History of herpes genitalis acute February 14, 2025 11:23am Preeclampsia, severe acute Augu st 2024 11:23am acute February 14, 025 11:23am Retained placenta or membranes acute February 14 11:23am Supervision of high-risk acute February 14 11:23am Low vitamin B12 level resolved Aug ust 2024 11:23am Abnormal Pap smear of cervix acute March 07, 2025 2:33pm Ectopic acute Septemb er 2024 2:33pm Elevated liver enzymes acute Se pt2024 2:33pm History of herpes genitalis acute March 07, 2025 2:33pm Preeclampsia, severe acute Mar ember 2024 2:33pm acute March 07, 2025 2:33pm Retained placenta or membranes acute March 07, 2 025 2:33pm Supervision of high-risk acute March 07, 2 025 2:33pm Elevated liver enzymes acute Se ptember 2024 9:41am acute March 9:41am [facility] Work Phone: [phone]) [phone] Evaluation note* Diagnosis Onset Date Resolution Status Admit Date Abnormal Pap smear of cervix acute October 25, 2024 12:46pm Ectopic acute October 022024 12:46pm History of herpes genitalis acute October 25, 2024 12:46pm Low vitamin B12 level acute Apr 2024 12:46pm Preeclampsia, severe acute Apri l 2024 12:46pm acute October 25 12:46pm Retained placenta or membranes acute October 25, 2024 12:46pm Supervision of high-risk acute October 25, 2024 12:46pm [facility] Work Phone: 1(240) 739-984904-25-2025 Evaluation note* Diagnosis Onset Date Resolution Status Admit Date Abnormal Pap smear of cervix acute October 25, 2024 12:46pm Ectopic acute October 022024 12:46pm History of herpes genitalis acute October 25, 2024 12:46pm Low vitamin B12 level acute Apr 2024 12:46pm Preeclampsia, severe acute Apri l [...] high-risk acute November 22, 2024 1 :30pm [facility] Work Phone: 1(675) 330-361604-25-2025 Evaluation note* Diagnosis Onset Date Resolution Status Admit Date Abnormal Pap smear of cervix acute October 25, 2024 12:46pm Ectopic acute October 022024 12:46pm History of herpes genitalis acute October 25, 2024 12:46pm Low vitamin B12 level acute Apr 2024 12:46pm Preeclampsia, severe acute Apri l [...] of high-risk acute December 16, 2024 1:21pm [facility] Work Phone: 1(312) 347-171904-25-2025 Evaluation note* Diagnosis Onset Date Resolution Status Admit Date Abnormal Pap smear of cervix acute October 25, 2024 12:46pm Ectopic acute October 022024 12:46pm History of herpes genitalis acute October 25, 2024 12:46pm Low vitamin B12 level acute Apr 2024 12:46pm Preeclampsia, severe acute Apri l [...] of high-risk acute December 16, 2024 1:21pm Abnormal Pap smear of cervix acute January 17, 2025 10:03am Ectopic acute January 172024 10:03am Elevated liver enzymes acute Ju ly 2024 10:03am History of herpes genitalis acute January 17, 2025 10:03am Low vitamin B12 level acute Pierre y 2024 10:03am Preeclampsia, severe acute January 17, 2025 10:03am acute January 17 10:03am Retained placenta or membranes acute January 17, 2025 10:03am Supervision of high-risk acute January 17, 2025 10:03am [facility] Work Phone: 1(894) 831-846104-25-2025 Evaluation note* Diagnosis Onset Date Resolution Status [...] of high-risk acute December 16, 2024 1:21pm Abnormal Pap smear of cervix acute January 17, 2025 10:03am Ectopic acute January 172024 10:03am Elevated liver enzymes acute Ju ly 2024 10:03am History of herpes genitalis acute January 17, 2025 10:03am Low vitamin B12 level acute Pierre y 2024 10:03am Preeclampsia, severe acute January 17, 2025 10:03am acute January 17 10:03am Retained placenta or membranes acute January 17, 2025 10:03am Supervision of high-risk acute January 17, 2025 10:03am Abnormal Pap smear of cervix acute February 14, 2025 11:23am Ectopic acute February 14, 2025 11:23am Elevated liver enzymes acute Au iris 2024 11:23am History of herpes genitalis acute February 14, 2025 11:23am Low vitamin B12 level acute Aug ust 2024 11:23am Preeclampsia, severe acute Augu st 2024 11:23am acute February 14, 2 025 11:23am Retained placenta or membranes acute February 14, 2025 11:23am Supervision of high-risk acute February 14 11:23am [facility] Work Phone: [phone] Telephone encounter Note* Telephone Encounter - Audi Butcher CNP - 10/07/2024 12:10 PM EDT Prescription approved. Sent to pharmacy on file. Pharmacy to notify patient when refill is available. [id number] Miscellaneous Notes* Telephone Encounter - Audi Butcher [...] and get them sent to the pharmacyCallback# [phone] documented in this [id number] Telephone encounter Note* Telephone Encounter - Anuja Dumont LPN - 10/07/2024 10:23 AM EDT Rxs for B12 pending to pharmacy. [id number] Telephone encounter Note* Telephone Encounter - Anuja Dumont LPN - 10/07/2024 10:21 AM EDT ----- Message from Malinda Dowd sent at 10/07/2024 10:11 AM EDT ----- Regarding: B12 injections Contact: Hanh, Self Caller: Julieth: SIENNA Kim is calling to agree to the B12 shots and get them sent to the pharmacyCallback# [phone] [id number] NoteOffice Progress Notes Patient Name: Hanh Rm Date : 09/26/2024 MR #: [id number] : 1995 Summary and Plan Problem List [...] approximately 5 weeks - She follows with [facility]. She is G-5 P-3; history of ectopic in 2020. 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 History of pre-eclampsia [...] 08/27/2019 acute cholecystitis due to gallstones......Dr. Kendell Mcguire D & C WITH [facility] 07/2019 for placental issues post [...] drug screen: The ASCVD Risk score (Nydia DK, et al., 2019) failed to calculate for [...] Mouth/Throat: Mouth: Mucous membranes (more content not included)...[facility] 09-02-2024 History of Present illness Narrative* Colt Morris Edvin, DO - 09/02/2024 2:45 PM EST Subjective Patient ID: Hanh Rm is a 29 y.o. female who presents for Follow-up (Patient started taking cholestyramine and states it made her symptoms a lot better. ). ARMANDO Riggs is seen today in follow-up for bile [...] DO 09/02/24 2:48 PM documented in this [facility] Work Phone: 1(508) 659-617912-02-2024 History of Present illness Narrative* Colt Pardo [...] orders for this visit: Bile salt-induced diarrhea ([facility]) - cholestyramine (Questran) 4 gram powder; Take 0.5 packets (2 g) by mouth 2 times daily (morning and late afternoon). Dissolve in 8 oz of liquid and drink before a meal Functional diarrhea - Celiac Panel; Future Commend she go on FODMAP diet for 8 weeks. Will treat bile salt diarrhea with cholestyramine. Follow-up 2 months after FODMAP diet is initiated. Clot Pardo DO 06/03/24 3:35 PM documented in this [facility] Work Phone: 1(611) 467-345811-04-2024 History of Present illness Narrative* Hanh Madrigal DO - 05/06/2024 8:40 AM EST Subjective Patient [...] deficiency [Z00.00] Wellness examination documented in this [facility] Work Phone: 1(813) 744-471804-29-2024 History of Present illness Narrative* Hanh Madrigal [...] Vitamin B 12 deficiency [facility]: 1(835) 163-472810-30-2023 History of Present illness Narrative* Hanh Madrigal [...] diagnoses: [E53.8] B12 deficiency [facility] Work Phone: [phone]) 782-283209-01-2023 NoteHNO ID: [id number] Author: Bruna Andrade APRN.ANAIS Service: ? Author Type: Nurse Practitioner Type: Progress Notes Filed: 03/03/2023 2:00 PM Note Text: Inspector Type offered: Patient declines. Hanh Dolan is a 27 year old female who presents To establish care. HPI: Patient presents today to establish care due to [facility] closing. She has an appointment with them to have her IUD removed on March 17 and wants to attempt . 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 Hanh Dolan is a 27 year old female who presents To establish care. HPI: Patient presents today to establish care due to [facility] closing. She has an appointmentwith them to have her IUD removed on March 17 and wants to attempt . 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 Endocervical and/or squamous metaplasticcells (endocervical component)are present.[facility] A#[id number] Work Phone: Comment on above:Satisfactory for evaluation. Endocervical and/or squamous metaplasticcells (endocervical component)are present.09-28-2021 NotePap Smear QC ReviewMarch 2021 4:00pmCommentNuvia Allen Supervisory Burglary Investigator (ASCP)[facility] A#[id number] Hospital Work Phone: Comment on above:Nuvia Allen, Supervisory Burglary Investigator (ASCP)Evaluation noteNo assessment information availableWWilson Health Work Phone: Evaluation note* Diagnosis Encounter to establish care- Primary Other reasons for seeking consultation [facility] Diagnosis B12 deficiency- Primary documented in this encounter [facility] Work Phone: Evaluation note* Diagnosis Onset Date Resolution Status History of abnormal cervical Pap smear acute History of pre-eclampsia in prior , currently acute acute Supervision of high risk in first trimester [facility] Work Phone: Evaluation note* Diagnosis Onset Date Resolution Status History of abnormal cervical Pap smear acute History of pre-eclampsia in prior , currently acute acute Supervision of high risk in first trimester acute History of pre-eclampsia in prior , currently acute acute Supervision of high risk in first trimester [facility] Work Phone: Evaluation note* Diagnosis Onset Date [...] of high risk in first trimester acute [facility] Work Phone: Evaluation note* Diagnosis Anxiety- Primary Anxiety state, unspecified Wellness examination Screening for lipid disorders Vitamin B 12 deficiency Other B-complex deficiencies documented in this encounter [facility] Work Phone: Evaluation note* Diagnosis Onset Date [...] of high risk in first trimester acute [facility] Work Phone: Evaluation note* Diagnosis B12 deficiency- Primary Wellness examination documented in this encounter [facility] Work Phone: Evaluation note* Diagnosis Bile salt-induced diarrhea (HHS-HCC)- Primary Functional diarrhea documented in this encounter [facility] Work Phone: Evaluation note* Diagnosis Bile salt-induced diarrhea (HHS-HCC)- Primary documented in this encounter [facility] Work Phone: Evaluation note* Diagnosis Acute cholecystitis- Primary Acute cholecystitis Post-op pain Other acute postoperative pain Calculus of gallbladder with acute cholecystitis and obstruction B12 deficiency- Primary [facility] Patient is here today for 6 mo follow up * Patient has a work form that needs filled out. * She had labs done at [facility]. * She reports that she has otherwise [...] denies any back pain or sciatica symptoms. [facility] Work Phone: History of Present illness Narrative* Patient is here today for work physical. * Pt reports that she as been doing ok. [facility] Work Phone: Progress note Author Mercy Avendano [facility] Note Date/Time December 16, 2024 1:44 pm [facility] [address], [address] [place] [address] OFFICE VISIT Date of Service: 12/16/24 MR#: [id number] Acct: [id number] Name: HANH RM Rep #: [id number] : 1995 Provider: JONN Avendaon Age/Sex: 29/F Location: [facility] Status: Signed Intake Vital Signs 10/25/24 13:03 11/22/24 13:34 12/16/24 13:25 Height 5 ft 3 in 5 ft 3 in 5 ft 3 in Weight: 157 lb BMI 27.8 BP 119/80 Intake Visit Reasons: 17wk ob Chief Complaint: 17wk ob Chief Operator Synthesis Required: No Is patient in pain?: No [...] genitalis Migraines Anemia affecting Anxiety Surgical History Bement teeth removed Hx of cholecystectomy Family History Father Squamous cell carcinoma Mother Hyperlipidemia Brother Seizures Grandmother Breast cancer Social History adopted: No household members: family and children housing: house number of children: 3 current occupational status: unemployed current occupation: [employer] pets and animals: Yes pets and animals: dog(s) history of recent travel: No Smoking Status: Never smoker alcohol intake: never substance use type: does not use caffeine: Yes what type of physical activity do you participate in: none sandra/mosque: Uatsdin seatbelt use: always do you feel safe at home: Yes 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 Date Name GA/Weeks Outcome Route Bth Weight Infant Gen Labor Lgth Anesthesia Del Locatn Provider FOB 07/24/15 [place] 39 live - full term 6lbs 9oz Female epidural [facility] Dr. Edna Brambila 07/08/19 [place] 37 live - full term 8lbs 6oz Male [facility] Dr. Edna Machuca 11/17/23 [place] 36 live - 6lbs 15oz Female [facility] Xiomara Ugalde Delivery Date: 07/24/15 Last Updated by: Lissa Ngo No issues during or delivery Delivery Date: 07/08/19 Last Updated by: Lissa Ngo Went into pre-term labor at 36 weeks but was able to stop labor. Developedpre-eclampsia and was induced at 37 weeks. Retained placenta, curettage immediately after delivery Delivery Date: 11/17/23 Last Updated by: Lissa Ngo COVID, LGA, severe pre-e HPI 17wk [...] Movement Monitoring, Signs and Symptoms of Preeclampsia, [place] Education and Family Medical Leave or Disability [...] this visit. [place] appropriate handout given. 12/16/24 1700 <Electronically signed by Mercy menendez CNM> Date _ Mercy Avendano CNM Cosigner Signature: Date (if applicable) CC: ~ [facility] Work Phone: Progress note Author Mercy Avendano [facility] Note Date/Time February 14, 2025 11 :44am [facility] [address], [address] [place] [address] OFFICE VISIT Date of Service: 02/14/25 MR#: [id number] Acct: [id number] Name: HANH RM Rep #: [id number] : 1995 Provider: JONN Avendano Age/Sex: 29/F Location: [facility] Status: Signed Intake Vital Signs 11/22/24 13:34 01/17/25 10:06 02/14/25 11:28 Height 5 ft 3 in 5 ft 3 in 5 ft 3 in Weight: 166 lb 6 oz BMI 29.5 BP 116/83 H Intake Visit Reasons: 25 wk ob Chief Complaint: 25wk OB Chief Operator Synthesis Required: No Is patient in pain?: No Allergies nitrofurantoin (From Macrobid) Allergy (Unknown, Verified 02/14/25 11:24) Hives nickel Allergy (Verified 02/14/25 11:24) Rash Sulfa (Sulfonamide Antibiotics) Allergy (Verified 02/14/25 11:24) Hives Medications ?Medication ?Instructions ?Recorded ?Confirmed ?Type docosahexaenoic acid 200 mg 200 mg PO DAILY 10/30/23 0 02/14/25 History capsule ( DHA) aspirin 81 mg tablet,delayed 81 mg PO QDAY 10/10/24 History release cholestyramine (with sugar) 4 gram ea PO 10/10/2401/31 History oral powder mecobalamin (vitamin B12) 10,000 mcg IM 10/10/2402/14 History mcg solution for injection ondansetron 4 mg disintegrating 4 mg PO Q6H PRN nausea and 10/10/24 02/14/25 Rx tablet vomiting #90 tabs sertraline 50 mg tablet (Zoloft) 50 mg PO QDAY #60 tab s 02/14/25 02/14/25 Rx Last Menstrual Period: 08/21/24 : No PFSH PFSH Medical History Preeclampsia, severe Large for dates affecting management of mother (spontaneous vaginal delivery) Retained placenta Abnormal Pap smear of cervix History of pre-term labor Retained placenta or membranes Headache Ectopic Pre-eclampsia Herpes genitalis Migraines Anemia affecting Anxiety Surgical History Bement teeth removed Hx of cholecystectomy Family History Father Squamous cell carcinoma Mother Hyperlipidemia Brother Seizures Grandmother Breast cancer Social History adopted: No household members: family and children housing: house number of children: 3 current occupational status: unemployed current occupation: [employer] pets and animals: Yes pets and animals: dog(s) history of recent travel: No Smoking Status: Never smoker alcohol intake: never substance use type: does not use caffeine: Yes what type of physical activity do you participate in: none sandra/mosque: Uatsdin seatbelt use: always do you feel safe at home: Yes 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 Date Name GA/Weeks Outcome Route Bth Weight Infant Gen Labor Lgth Anesthesia Del Locatn Provider FOB 07/24/15 [place] 39 live - full term 6lbs 9oz Female epidural [facility] Dr. Edna Brambila 07/08/19 [place] 37 live - full term 8lbs 6oz Male [facility] Dr. Edna Bethea Sven 11/17/23 Kimmie 36 live - 6lbs 15oz Female [facility] Xiomara Ugalde Delivery Date: 07/24/15 Last Updated by: Lissa Ngo No issues during or delivery Delivery Date: 07/08/19 Last Updated by: Lissa Ngo Went into pre-term labor at 36 weeks but was able to stop labor. Developedpre-eclampsia and was induced at 37 weeks. Retained placenta, curettage immediately after delivery Delivery Date: 11/17/23 Last Updated by: Lissa Ngo COVID, LGA, severe pre-e HPI 25 wk ob Details: HANH RM is a 29 year old who presents for routine OB visit. OB Visit ANNA Calculator Estimated Delivery Date Method Current WG Current Estimate 05/28/25 LMP (Certain) 25w 2d Expected Delivery Route/Plan Labor Preferences- CB/BF [...] (+6 oz) 119/79 Negative -?-?-?-?-?-?-?-?-?-?-?-?- Negative 170 -?-?-?-?-?-?-?-?-?-?-?-?- JV- CRL still co nsistent with LMP. has very slight increase in ALT and elevate d b12 (due to injection the day prior) will repeat labs today. 12/16/24 -?-?-?-?-?-?-?-?-?-?-?-?- 16w 5d 157 lb (+5 lb) 119/80 Negative -?-?-?-?-?-?-?-?-?-?-?-?- Negative 155 -?-?-?-?-?-?-?-?-?-?-?-?- KW- repeat liver enzymes today. US scheduled. no vb/cramping. no flutters yet 01/17/25 -?-?-?-?-?-?-?-?-?-?-?-?- 21w 2d 162 lb (+10 lb) 119/76 Trace -?-?-?-?-?-?-?-?-?-?-?-?- Negative 145 -?-?-?-?-?-?-?-?-?-?-?-?- LC- normal anato my. feeling occ flutters. no vb/cramping. 02/14/25 -?-?-?-?-?-?-?-?-?-?-?-?- 25w 2d 166 lb 6 oz (+14 lb 6 oz) 116/83 Negative -?-?-?-?-?-?-?-?-?-?-?-?- Negative 140 25 -?-?-?-?-?-?-?-?-?-?-?-?- KW- no vb/crampi ng. good fm. Patient tearful today and feels that she needs to go back on zoloft. She said she feels very emotional at home and is crying all the time for no reason-Zoloft 50mg sent into pharmacy. ACOG First Trimester First Trimester: Desire for [...] Negative Last Edit by Daysi Alva on 02/14/25 11:33 Office Urine Protein Negative Last Edit by Daysi Alva on 02/14/25 11:33 Coding Level of Care Code OB Routine Diagnoses Elevated liver enzymes R74.8 Low vitamin B12 level R79.89 Retained placenta or membranes O73.1 Ectopic O00.90 Supervision of high-risk O09.90 25 weeks gestation of Z3A.25 Weeks of gestation: 25 weeks Abnormal Pap smear of cervix R87.619 History of herpes genitalis Z86.19 Preeclampsia, severe O14.10 Assessment and Plan Assessment [...] : Status: Acute Qualifiers: Weeks of gestation: 25 weeks Qualified Code(s): Z3A.25 - 25 weeks gestation of Comment: NIPT w gender- low risk, male, carrier- declines, nl anatomy (7) Abnormal Pap smear of cervix: Status: Acute Comment: LGSIL 09/23/16. all others nl. Pt's Mom total hysterectomy at 36. Pap 10/2024 nl. (8) History of herpes genitalis: Status: Acute Comment: valtrex at 36 weeks, last outbreak 2019 (9) Preeclampsia, severe: Status: Acute Comment: advised to start 81mg ASA daily Elevated ALT with NOB labs. redraw in 4 weeks -needs 34 week Orders: Orders POC Urinalysis 2 Dip (Clinic) Today O09.90 - Supervision of high risk , unspecified, unspecified trimester, Z3A.25 - 25 weeks gestation of CBC W/Diff, Automated Today O09.90 - Supervision of high risk , unspecified, unspecified trimester, Z3A.25 - 25 weeks gestation of Glucose Challenge Gest 1H 50g Today O09.90 - Supervision of high risk , unspecified, unspecified trimester, Z13.1 - Encounter for screening for diabetes mellitus, Z3A.25 - 25 weeks gestation of HIV Today O09.90 - Supervision of high risk , unspecified, unspecified trimester, Z3A.25 - 25 weeks gestation of Syphilis Antibodies Today O09.90 - Supervision of high risk , unspecified, unspecified trimester, Z3A.25 - 25 weeks gestation of Medications: New sertraline (Zoloft) 50 mg PO QDAY 60 tabs 3RF Plan Details Additional Comments: ACOG trimester education reviewed and updated. see problem list details for updated plan management information and see below for orders placed at this visit. [place] appropriate handout given. 02/14/25 1145 <Electronically signed by Mercy menendez CNM> Date _ Mercy Avendano CNM Cosigner Signature: Date (if applicable) CC: ~ [facility] Work Phone: Progress note Author Mercy Avendano [facility] Note Date/Time March 20, 2025 10:15am [facility] [address], [place] [address] OFFICE VISIT Date of Service: 03/20/25 MR#: [id number] Acct: [id number] Name: HANH RM Rep #: [id number] : 1995 Provider: JONN Avendano Age/Sex: 29/F Location: [facility] [place] Status: Signed Intake Vital Signs 01/17/25 10:06 03/07/25 14:49 03/20/25 09:37 03/20/25 09:37 Height 5 ft 3 in 5 ft 3 in 5 ft 3 in 5 ft 3 in Weight: 176 lb 2 oz 178 lb BMI 31.1 31.5 BP 109/73 106/72 Intake Visit Reasons: 30wk 1D ob Chief Operator Synthesis Required: No Is patient in pain?: No Allergies nitrofurantoin (From Macrobid) Allergy (Unknown, Verified 03/20/25 09:48) Hives nickel Allergy (Verified 03/20/25 09:48) Rash Sulfa (Sulfonamide Antibiotics) Allergy (Verified 03/20/25 09:48) Hives Medications ?Medication ?Instructions ?Recorded ?Confirmed ?Type docosahexaenoic acid 200 mg 200 mg PO DAILY 10/30/23 0 03/20/25 History capsule ( DHA) aspirin 81 mg tablet,delayed 81 mg PO QDAY 10/10/24 History release cholestyramine (with sugar) 4 gram ea PO 10/10/2403/03 History oral powder mecobalamin (vitamin B12) 10,000 mcg IM 10/10/2403/20 History mcg solution for injection ondansetron 4 mg disintegrating 4 mg PO Q6H PRN nausea and 10/10/24 03/20/25 Rx tablet vomiting #90 tabs sertraline 50 mg tablet (Zoloft) 50 mg PO QDAY #60 tab s 02/14/25 03/20/25 Rx Last Menstrual Period: 08/21/24 Zika: Zika virus screening: Negative : No Have you fallen in the past year?: No PFSH PFSH Medical History Preeclampsia, severe Large for dates affecting management of mother (spontaneous vaginal delivery) Retained placenta Abnormal Pap smear of cervix History of pre-term labor Retained placenta or membranes Headache Ectopic Pre-eclampsia Herpes genitalis Migraines Anemia affecting Anxiety Surgical History Bement teeth removed Hx of cholecystectomy Family History Father Squamous cell carcinoma Mother Hyperlipidemia Brother Seizures Grandmother Breast cancer Social History adopted: No household members: family and children housing: house number of children: 3 current occupational status: unemployed current occupation: [employer] pets and animals: Yes pets and animals: dog(s) history of recent travel: No Smoking Status: Never smoker alcohol intake: never substance use type: does not use caffeine: Yes what type of physical activity do you participate in: none sandra/mosque: Uatsdin seatbelt use: always do you feel safe at home: Yes 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 Date Name GA/Weeks Outcome Route Bth Weight Infant Gen Labor Lgth Anesthesia Del Locatn Provider FOB 07/24/15 [place] 39 live - full term 6lbs 9oz Female epidural [facility] Dr. Edna Brambila 07/08/19 [place] 37 live - full term 8lbs 6oz Male [facility] Dr. Edna Bethea Sven 11/17/23 Kimmie 36 live - 6lbs 15oz Female [facility] Xiomara Ugalde Delivery Date: 07/24/15 Last Updated by: Lissa Ngo No issues during or delivery Delivery Date: 07/08/19 Last Updated by: Lissa Ngo Went into pre-term labor at 36 weeks but was able to stop labor. Developedpre-eclampsia and was induced at 37 weeks. Retained placenta, curettage immediately after delivery Delivery Date: 11/17/23 Last Updated by: Lissa Ngo COVID, LGA, severe pre-e HPI 30wk 1D ob Details: HANH RM is a 29 year old who presents for routine OB visit. OB Visit ANNA Calculator Estimated Delivery Date Method Current WG Current Estimate 05/28/25 LMP (Certain) 30w 1d Expected Delivery Route/Plan Labor Preferences- CB/BF classes: [...] (+6 oz) 119/79 Negative -?-?-?-?-?-?-?-?-?-?-?-?- Negative 170 -?-?-?-?-?-?-?-?-?-?-?-?- JV- CRL still co nsistent with LMP. has very slight increase in ALT and elevated b12 (due to injection the day prior) will repeat labs today. 12/16/24 -?-?-?-?-?-?-?-?-?-?-?-?- 16w 5d 157 lb (+5 lb) 119/80 Negative -?-?-?-?-?-?-?-?-?-?-?-?- Negative 155 -?-?-?-?-?-?-?-?-?-?-?-?- KW- repeat liver enzymes today. US scheduled. no vb/cramping. no flutters yet 01/17/25 -?-?-?-?-?-?-?-?-?-?-?-?- 21w 2d 162 lb (+10 lb) 119/76 Trace -?-?-?-?-?-?-?-?-?-?-?-?- Negative 145 -?-?-?-?-?-?-?-?-?-?-?-?- LC- normal anato my. feeling occ flutters. no vb/cramping. 02/14/25 -?-?-?-?-?-?-?-?-?-?-?-?- 25w 2d 166 lb 6 oz (+14 lb 6 oz) 116/83 Negative -?-?-?-?-?-?-?-?-?-?-?-?- Negative 140 25 -?-?-?-?-?-?-?-?-?-?-?-?- KW- no vb/crampi ng. good fm. Patient tearful today and feels that she needs to go back on zoloft. She said she feels very emotional at home and is crying all the time for no reason-Zoloft 50mg sent into pharmacy. 03/07/25 -?-?-?-?-?-?-?-?-?-?-?-?- 28w 2d 176 lb 2 oz (+24 lb 2 oz) 109/73 Negative -?-?-?-?-?-?-?-?-?-?-?-?- Negative 140 28 29 -?-?-?-?-?-?-?-?-?-?-?-?- SM- no vb lof go od fm n oregular ctx feeling better on zoloft 03/20/25 -?-?-?-?-?-?-?-?-?-?-?-?- 30w 1d 178 lb (+26 lb) 106/72 Trace -?-?-?-?-?-?-?-?-?-?-?-?- Negative 145 32 -?-?-?-?-?-?-?-?-?-?-?-?- KW- no vb/lof/ct x. good fm. Requesting increase in zoloft- will try 75mg. having some itching in her feet, specifically at night. will get labs ACOG First Trimester First Trimester: Desire for [...] Movement Monitoring, Signs and Symptoms of Preeclampsia, [place] Education and Family Medical Leave or Disability [...] Office Urine Glucose Negative Last Edit by Joya Villeda RN on 03/20/25 09:50 Office Urine Protein Trace Last Edit by Joya Villeda RN on 03/20/25 09:50 Coding Level of Care Code OB Routine Diagnoses 30 weeks gestation of Z3A.30 Weeks of gestation: 30 weeks Elevated liver enzymes R74.8 Assessment and Plan Assessment and Plan (1) : Status: Acute Qualifiers: Weeks of gestation: 30 weeks Qualified Code(s): Z3A.30 - 30 weeks gestation of Comment: 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 see problem list details for updated plan management information and see below for orders placed at this visit. [place] appropriate handout given. Clinical Quality Measures Falls Risk Screening/Assistive Devices Have you fallen in the past year?: No 03/20/25 1015 <Electronically signed by Mercy menendez CNM> Date _ Mercy Avendano CNM Cosigner Signature: Date (if applicable) CC: ~ [facility] Work Phone: Progress note Author Mercy Avendano [facility] Note Date/Time April 04, 2025 10 :17am [facility] [address], [address] [place] [address] OFFICE VISIT Date of Service: 04/04/25 MR#: [id number] Acct: [id number] Name: HANH RM Rep #: [id number] : 1995 Provider: JONN Avendano Age/Sex: 29/F Location: [facility] Status: Signed Intake Vital Signs 01/17/25 10:06 03/20/25 09:37 04/04/25 09:41 Height 5 ft 3 in 5 ft 3 in 5 ft 3 in Weight: 179 lb 6 oz BMI 31.7 BP 108/72 Intake Visit Reasons: 32wk 2D ob Chief Operator Synthesis Required: No Is patient in pain?: No Allergies nitrofurantoin (From Macrobid) Allergy (Unknown, Verified 04/04/25 09:42) Hives nickel Allergy (Verified 04/04/25 09:42) Rash Sulfa (Sulfonamide Antibiotics) Allergy (Verified 04/04/25 09:42) Hives Medications ?Medication ?Instructions ?Recorded ?Confirmed ?Type docosahexaenoic acid 200 mg 200 mg PO DAILY 10/30/23 1 History capsule ( DHA) aspirin 81 mg tablet,delayed 81 mg PO QDAY 10/10/24 History release cholestyramine (with sugar) 4 gram ea PO 10/10/2409/24 History oral powder mecobalamin (vitamin B12) 10,000 mcg IM 10/10/2404/04 History mcg solution for injection ondansetron 4 mg disintegrating 4 mg PO Q6H PRN nausea and 10/10/24 04/04/25 Rx tablet vomiting #90 tabs sertraline 50 mg tablet (Zoloft) 75 mg (1.5 x 50 mg) P O QDAY #60 04/04/25 04/04/25 Rx tabs valacyclovir 500 mg tablet 500 mg PO DAILY #30 tabs 04/04/25 Rx (Valtrex) Last Menstrual Period: 08/21/24 Zika: Zika virus screening: Negative : No Have you fallen in the past year?: No PFSH PFSH Medical History Preeclampsia, severe Large for dates affecting management of mother (spontaneous vaginal delivery) Retained placenta Abnormal Pap smear of cervix History of pre-term labor Retained placenta or membranes Headache Ectopic Pre-eclampsia Herpes genitalis Migraines Anemia affecting Anxiety Surgical History Bement teeth removed Hx of cholecystectomy Family History Father Squamous cell carcinoma Mother Hyperlipidemia Brother Seizures Grandmother Breast cancer Social History adopted: No household members: family and children housing: house number of children: 3 current occupational status: unemployed current occupation: [employer] pets and animals: Yes pets and animals: dog(s) history of recent travel: No Smoking Status: Never smoker alcohol intake: never substance use type: does not use caffeine: Yes what type of physical activity do you participate in: none sandra/mosque: Uatsdin seatbelt use: always do you feel safe at home: Yes 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 Date Name GA/Weeks Outcome Route Bth Weight Infant Gen Labor Lgth Anesthesia Del Locatn Provider FOB 07/24/15 [place] 39 live - full term 6lbs 9oz Female epidural [facility] Dr. Edna Brambila 07/08/19 [place] 37 live - full term 8lbs 6oz Male [facility] Dr. Edna Bethea Sven 11/17/23 Kim[place] 36 live - 6lbs 15oz Female [facility] Xiomara Ugalde Delivery Date: 07/24/15 Last Updated by: Lissa Ngo No issues during or delivery Delivery Date: 07/08/19 Last Updated by: Lissa Ngo Went into pre-term labor at 36 weeks but was able to stop labor. Developedpre-eclampsia and was induced at 37 weeks. Retained placenta, curettage immediately after delivery Delivery Date: 11/17/23 Last Updated by: Lissa Ngo COVID, LGA, severe pre-e HPI 32wk 2D ob Details: HANH RM is a 29 year old who presents for routine OB visit. OB Visit ANNA Calculator Estimated Delivery Date Method Current WG Current Estimate 11/26/25 LMP (Certain) 32w 2d Expected Delivery Route/Plan Labor Preferences- CB/BF [...] (+6 oz) 119/79 Negative -?-?-?-?-?-?-?-?-?-?-?-?- Negative 170 -?-?-?-?-?-?-?-?-?-?-?-?- JV- CRL still co nsistent with LMP. has very slight increase in ALT and elevated b12 (due to injection the day prior) will repeat labs today. 12/16/24 -?-?-?-?-?-?-?-?-?-?-?-?- 16w 5d 157 lb (+5 lb) 119/80 Negative -?-?-?-?-?-?-?--?-?-?-?-?- Negative 155 -?-?-?-?-?-?-?-?-?-?-?-?- KW- repeat liver enzymes today. US scheduled. no vb/cramping. no flutters yet 01/17/25 -?--?-?-?-?-?-?-?-?-?-?-?- 21w 2d 162 lb (+10 lb) 119/76 Trace -?-?-?-?-?-?-?-?-?-?-?-?- Negative 145 -?-?-?-?-?-?-?-?-?-?-?-?- LC- normal anato my. feeling occ flutters. no vb/cramping. 02/14/25 -?-?-?-?-?-?-?-?-?-?-?-?- 25w 2d 166 lb 6 oz (+14 lb 6 oz) 116/83 Negative -?-?-?-?-?-?-?-?-?-?-?-?- Negative 140 25 -?-?-?-?-?-?-?-?-?-?-?-?- KW- no vb/crampi ng. good fm. Patient tearful today and feels that she needs to go back on zoloft. She said she feels very emotional at home and is crying all the time for no reason-Zoloft 50mg sent into pharmacy. 03/07/25 -?-?-?-?-?-?-?-?-?-?-?-?- 28w 2d 176 lb 2 oz (+24 lb 2 oz) 109/73 Negative -?-?-?-?-?-?-?-?-?-?-?-?- Negative 140 28 29 -?-?-?-?-?-?-?-?-?-?-?-?- SM- no vb lof go od fm n oregular ctx feeling better on zoloft 03/20/25 -?-?-?-?-?-?-?-?-?-?-?-?- 30w 1d 178 lb (+26 lb) 106/72 Trace -?-?-?-?-?-?-?-?-?-?-?-?- Negative 145 32 -?-?-?-?-?-?-?-?-?-?-?-?- KW- no vb/lof/ct x. good fm. Requesting increase in zoloft- will try 75mg. having some itching in her feet, specifically at night. will get labs 04/04/25 -?-?-?-?-?-?-?-?-?-?-?-?- 32w 2d 179 lb 6 oz (+27 lb 6 oz) 108/72 Negative -?-?-?-?-?-?-?-?-?-?-?-?- Negative 125 -?-?-?-?-?-?-?-?-?-?-?-?- KW- no vb/lof/ct x. some decreased movement-NST for reassurance. KW- no vb/lof/ctx. some decr eased movement-NST for reassurance. would like GBS at 34 weeks due to hx of KW- no vb/lof/ctx. some decr eased movement-NST for reassurance. would like GBS at 34 weeks due to hx of valtrex sent for hx of HSV ACOG First Trimester First Trimester: Desire for [...] normal Thought Content: normal Judgment: judgment good Office Procedures Non-stress Test Non-Stress Test Indications for Monitoring: Yes decreased movement Heart Rate Baseline: 125 Heart Rate Variability: moderate Movement: Present Heart Rate Accelerations: Present Decelerations: Absent Contractions: Absent Impression: Yes Reactive Non-Stress Test Results POC Urinalysis 2 Dip (Clinic) Office Urine Glucose Negative Last Edit by Jennifer Duckworth on 04/04/25 09:47 Office Urine Protein Negative Last Edit by Jennifer Duckworth on 04/04/25 09:47 Coding Level of Care Code OB Routine Diagnoses Elevated liver enzymes R74.8 Retained placenta or membranes O73.1 Ectopic O00.90 Supervision of high-risk O09.90 32 weeks gestation of Z3A.32 Weeks of gestation: 32 weeks Abnormal Pap smear of cervix R87.619 History of herpes genitalis Z86.19 Preeclampsia, severe O14.10 CPT Codes Non-Stress Test (28677) Assessment and Plan Assessment and Plan (1) Elevated liver enzymes: Status: Acute Comment: redraw end of October- (2) Retained placenta or membranes: Status: Acute Comment: with 2nd , without hemorrhage, resolved with curettage (3) Ectopic : Status: Acute Comment: 06/2020 (4) Supervision of high-risk : Status: Acute Comment: PRR,, ANNA 05/28 PC Landon Brennan (CF carrier), Kimmie Mendoza (5) : Status: Acute Qualifiers: Weeks of gestation: 32 weeks Qualified Code(s): Z3A.32 - 32 weeks gestation of Comment: Desires Stacker Operator for delivery, NIPT w gender- low risk, male, carrier- declines, nl anatomy (6) Abnormal Pap smear of cervix: Status: Acute Comment: LGSIL 09/23/16. all others nl. Pt's Mom total hysterectomy at 36. Pap 10/2024 nl. (7) History of herpes genitalis: Status: Acute Comment: valtrex at 36 weeks, last outbreak 2019 (8) Preeclampsia, severe: Status: Acute Comment: advised to start 81mg ASA daily Elevated ALT with NOB labs. redraw in 4 weeks -needs 34 week Orders: Orders POC Urinalysis 2 Dip (Clinic) Today OB NST Today O36.8190 - Decreased movements, unspecified trimester, not applicable or unspecified Medications: New valacyclovir (Valtrex) 500 mg PO DAILY 30 tabs 1RF Z86.19 - Personal history of other infectious and parasitic diseases Changed From sertraline (Zoloft) 50 mg PO QDAY 60 tabs 3RF To sertraline (Zoloft) 75 mg (1.5 x 50 mg) PO QDAY 60 tabs 3RF Plan Details Additional Comments: ACOG trimester education reviewed and updated. see problem list details for updated plan management information and see below for orders placed at this visit. [place] appropriate handout given. Clinical Quality Measures Falls Risk Screening/Assistive Devices Have you fallen in the past year?: No 04/04/25 1017 <Electronically signed by Mercy menendez CNM> Date _ Mercy Avendano CNM Cosigner Signature: Date (if applicable) CC: ~ [facility] Work Phone: reason for referral (narrative)* Consultation (Routine) - Authorized Specialty Diagnoses / Procedures Referred By Contac t Referred To Contact Primary Care Procedures Follow Up In Primary Care - Established Hanh Madrigal DO [address] [place] [address] [place] [address] Referral ID Status Reason Start Date Expiration Date V isits Requested Visits Authorized [id number] Authorized 10/30/2023 10/29/2024 1 1 [facility] Work Phone: reason for referral (narrative)* Consultation (Routine) - Authorized Specialty Diagnoses / Procedures Referred By Contac t Referred To Contact Primary Care Procedures Follow Up In Primary Care - Established Hanh Madrigal DO [address] [place] [address] [place] [address] Phone: tel: fax: Referral ID Status Reason Start Date Expiration Date V isits Requested Visits Authorized [id number] Authorized 05/06/2024 05/06/2025 1 1 [facility] Work Phone: Reason for referral (narrative)No reason for referral information [facility] Work Phone: Reason for visit Narrative* Consultation (Routine) - Authorized Specialty Diagnoses / Procedures Referred By Hilary khan Referred To Contact Primary Care Procedures Follow Up In Primary Care - Established Hanh Madrigal DO [address] [facility] [place] [address] Referral ID Status Reason Start Date Expiration Date V isits Requested Visits Authorized [id number] Authorized 01/23/2023 07/22/2023 1 1 [facility] Work Phone: Summary Purpose Family History Unknown [...] Documents on File Type Date Recorded Patient Reading Recovery Teacher Expl anation Advance Directives and Livin g Will 08/27/2019 12:46 AM Latest Code Status on File Code Status Date Activated Date Inactivated Comments Full Code 08/27/2019 9:51 AM Documents on File Type Date Recorded Patient Reading Recovery Teacher Expl anation Advance Directives and Livin g Will 07/02/2020 8:30 AM Latest Code Status on File Code Status Date Activated Date Inactivated Comments Full Code 08/27/2019 9:51 AM 07/02/2020 8:16 AM Documents on File Type Date Recorded Patient Reading Recovery Teacher Expl anation Advance Directives and Livin g Will 07/05/2020 8:17 AM Advance Directive Response Recorded Date/ Time Living Will No July 07 0 12:52pm Power of Strategy Associate No July 07, 2 020 12:52pm Advance Directive Response Recorded Date/ Time Living Will No July 07 0 11:52am Power of Strategy Associate No July 07, 2 020 11:52am Date Activated Date Inactivated Comments 08/27/2019 9:51 AM 07/02/2020 8:16 AM Discharge Instructions * Instructions* Michelle Longoria, CHINCHILLA MACHINE OPERATOR-RICE FARMER - 02/11/2019 Continue current medications including Zofran as needed for nausea. Clear liquids tonight, and then may slowly advance diet as tolerated. Please follow-up with your DIGITAL PRINTER OPERATOR tomorrow, call for appointment. Return for new or worsening symptoms. * Attachments The following attachments cannot be sent through Care Everywhere. * : Hyperemesis Gravidarum (Lithuanian) documented in this encounter* Instructions* Rosalind Silverman, RICE FARMER - 08/27/2019 If any new or worsening symptoms return to the emergency department otherwise follow-up with general surgery as directed. * Attachments The following attachments cannot be sent through Care Everywhere. * Gallstones (Lithuanian) * Gallbladder Disease: Low-Fat Diet (Lithuanian) documented in this encounter* Discharge Instr - AVS First Page* Kendell Mcguire MD - 08/27/2019 4:15 PM EST DISCHARGE [...] than 101.4 degrees, contact our office at [phone]. Showering / Bathing Start tomorrow. Medication instructions ? Prescription written for: [place] ? Then transition to Tylenol. Follow-up Call [phone] to make an appointment to be seen [...] or dog food bags, or a vacuum assembly cleaner. Avoid strenuous activities, such as biking, [...] taking a prescription pain medicine, take an nzeb-vgp-jxiytbh medicine such as acetaminophen (Tylenol), ibuprofen (Advil, [...] Log into your personal health record on [email or web address] and enter F357 in the Education box to learn more about Cholecystectomy: What to Expect at Home. Current as of: February 10, 2019 Content Version: 12.3 9328-6312 [employer]. Care instructions adapted under license by your healthcare professional. If you have questions about a medical condition or this instruction, always ask your healthcare professional. [employer] disclaims any warranty or liability for your use of this information. GENERAL POST-OPERATIVE PATIENT INSTRUCTIONS ANESTHESIA PRECAUTIONS: A responsible adult must stay with you for at least 24 hours after surgery. You may feel light headed,, dizzy, or nauseated during this time. Do not operate a vehicle (car, bike, motorcycle, life consultant) machinery or power tools. Do not make [...] to call your physician or the hospital fiberglass container winding operator if you have any questions, and they will be glad to assist you. documented in this encounter* Instructions* Yannick Rene MD - 07/02/2020 Please return to the emergency department if you have any concerns, start to feel extremely lightheaded, pass out, or have increasing severe abdominal pain * Attachments The following attachments cannot be sent through Care Everywhere. * : Ectopic (Lithuanian) documented in this encounter* Attachments The following attachments cannot be sent through Care Everywhere. * COVID-19 SELF ISOLATION DISCHARGE INSTRUCTIONS * URI (Upper Respiratory Infection) (Lithuanian) documented in this encounter Assessments Diagnosis Nausea [...] site History of Present Illness * Kendell Mcguire MD - 09/06/2019 10:59 AM EST PROGRESS [...] 08/27/2019 acute cholecystitis due to gallstones......Dr. Kendell Mcguire D & C WITH [facility] 07/2019 for placental issues post delivery LABOR WISDOM TOOTH EXTRACTION [facility] has a current medication list which includes [...] Abnormal Pap smear of cervix November 22, 025 1:30pm Ectopic November 22, 2024 1:30p [...] 12:46pm Abnormal Pap smear of cervix November 22 2 025 1:30pm Ectopic November 22, 2024 [...] :21pm History of herpes genitalis December 16, 2 025 1:21pm Low vitamin B12 level December 16, 2024 1: 21pm Preeclampsia, severe December 16, 2024 1:2 1pm December 16, 2024 1:21 pm Retained placenta or membranes December 1:21pm Supervision of high-risk December 16, 2024 1:21pm Chief Complaint Admit Date NOB: LMP 08/21, ANNA 05/28 *Doc and midwif e only* October 25, 2024 12:46pm 13WK OB November 22, 2024 1:30p m 17wk ob December 16, 2024 1:21 pm 21 wk ob January 17, 2025 10:0 3am Reason for Visit Admit Date Abnormal Pap [...] 12:46pm Abnormal Pap smear of cervix November 22 2 025 1:30pm Ectopic November 22, 2024 [...] :21pm History of herpes genitalis December 16, 2 025 1:21pm Low vitamin B12 level December 16, 2024 1: 21pm Preeclampsia, severe December 16, 2024 1:2 1pm December 16, 2024 1:21 pm Retained placenta or membranes December 1:21pm Supervision of high-risk December 16, 2024 1:21pm Abnormal Pap smear of cervix January 17, 2025 10:03am Ectopic January 17, 2025 10:0 3am Elevated liver enzymes January 17, 2025 1 0:03am History of herpes genitalis January 17 2 025 10:03am Low vitamin B12 level January 17, 2025 10 :03am Preeclampsia, severe January 17, 2025 10: 03am January 17, 2025 10:0 3am Retained placenta or membranes December 10:03am Supervision of high-risk January 17, 2025 10:03am Chief Complaint Admit Date NOB: LMP 08/21, ANNA 05/28 *Doc and midwif e only* October 25, 2024 12:46pm 13WK OB November 22, 2024 1:30p m 17wk ob December 16, 2024 1:21 pm 21 wk ob January 17, 2025 10:0 3am 25 wk ob February 14, 2025 11 :23am Reason for Visit Admit Date Abnormal Pap [...] 12:46pm Abnormal Pap smear of cervix November 22 2 025 1:30pm Ectopic November 22, 2024 [...] :21pm History of herpes genitalis December 16, 2 025 1:21pm Low vitamin B12 level December 16, 2024 1: 21pm Preeclampsia, severe December 16, 2024 1:2 1pm December 16, 2024 1:21 pm Retained placenta or membranes December 1:21pm Supervision of high-risk December 16, 2024 1:21pm Abnormal Pap smear of cervix January 17, 2025 10:03am Ectopic January 17, 2025 10:0 3am Elevated liver enzymes January 17, 2025 1 0:03am History of herpes genitalis January 17, 2 025 10:03am Low vitamin B12 level January 17, 2025 10 :03am Preeclampsia, severe January 17, 2025 10: 03am January 17, 2025 10:0 3am Retained placenta or membranes December 10:03am Supervision of high-risk January 17, 2025 10:03am Abnormal Pap smear of cervix January 11:23am Ectopic February 14, 2025 11 :23am Elevated liver enzymes February 14, 2025 11:23am History of herpes genitalis February 14, 2025 11:23am Low vitamin B12 level February 14, 2025 11:23am Preeclampsia, severe February 14, 2025 1 1:23am February 14, 2025 11 :23am Retained placenta or membranes February 142024 11:23am Supervision of high-risk Augus 2024 11:23am Chief Complaint Admit Date 13WK OB November 22, 2024 1:30p m 17wk ob December 16, 2024 1:21 pm 21 wk ob January 17, 2025 10:0 3am 25 wk ob February 14, 2025 11 :23am 28wk ob/glucose March 07, 2025 2:33pm Reason for Visit Admit Date Abnormal Pap smear of cervix November 22 025 1:30pm Ectopic November 22, 2024 1:30p m Elevated liver enzymes November 22, 2024 1: 30pm History of herpes genitalis November 22 1:30pm Preeclampsia, severe November 22, 2024 1:30 pm November 22, 2024 1:30p m Retained placenta or membranes November 22, 2024 1:30pm Supervision of high-risk November 012024 1:30pm Low vitamin B12 level November 22, 2024 1:3 0pm Abnormal Pap smear of cervix December 16, 2024 1:21pm Ectopic December 16, 2024 1:21 pm Elevated liver enzymes December 16, 2024 1 :21pm History of herpes genitalis December 16, 2 025 1:21pm Preeclampsia, severe December 16, 2024 1:2 1pm December 16, 2024 1:21 pm Retained placenta or membranes December 1:21pm Supervision of high-risk December 16, 2024 1:21pm Low vitamin B12 level December 16, 2024 1: 21pm Abnormal Pap smear of cervix January 17, 2025 10:03am Ectopic January 17, 2025 10:0 3am Elevated liver enzymes January 17, 2025 1 0:03am History of herpes genitalis January 17, 2 025 10:03am Preeclampsia, severe January 17, 2025 10: 03am January 17, 2025 10:0 3am Retained placenta or membranes December 10:03am Supervision of high-risk January 17, 2025 10:03am Low vitamin B12 level January 17, 2025 10 :03am Abnormal Pap smear of cervix January 11:23am Ectopic February 14, 2025 11 :23am Elevated liver enzymes February 14, 2025 11:23am History of herpes genitalis February 14, 2025 11:23am Preeclampsia, severe February 14, 2025 1 1:23am February 14, 2025 11 :23am Retained placenta or membranes February 142024 11:23am Supervision of high-risk Augus 2024 11:23am Low vitamin B12 level February 14, 2025 11:23am Abnormal Pap smear of cervix March 072024 2:33pm Ectopic March 07, 2025 2:33pm Elevated liver enzymes March 07 2:33pm History of herpes genitalis March 2:33pm Preeclampsia, severe March 07, 2025 2:33pm March 07, 2025 2:33pm Retained placenta or membranes March 07, 2025 2:33pm Supervision of high-risk Carrie avrner 2024 2:33pm Chief Complaint Admit Date 13WK OB November 22, 2024 1:30p m 17wk ob December 16, 2024 1:21 pm 21 wk ob January 17, 2025 10:0 3am 25 wk ob February 14, 2025 11 :23am 28wk ob/glucose March 07, 2025 2:33pm 30wk 1D ob March 20, 2025 9:41am Reason for Visit Admit Date Abnormal Pap smear of cervix November 22, 2 025 1:30pm Ectopic November 22, 2024 1:30p m Elevated liver enzymes November 22, 2024 1: 30pm History of herpes genitalis November 22 1:30pm Preeclampsia, severe November 22, 2024 1:30 pm November 22, 2024 1:30p m Retained placenta or membranes November 22, 2024 1:30pm Supervision of high-risk November 012024 1:30pm Low vitamin B12 level November 22, 2024 1:3 0pm Abnormal Pap smear of cervix December 16, 2024 1:21pm Ectopic December 16, 2024 1:21 pm Elevated liver enzymes December 16, 2024 1 :21pm History of herpes genitalis December 16 1:21pm Preeclampsia, severe December 16, 2024 1:2 1pm December 16, 2024 1:21 pm Retained placenta or membranes December 1:21pm Supervision of high-risk December 16, 2024 1:21pm Low vitamin B12 level December 16, 2024 1: 21pm Abnormal Pap smear of cervix January 17, 2025 10:03am Ectopic January 17, 2025 10:0 3am Elevated liver enzymes January 17, 2025 1 0:03am History of herpes genitalis January 17, 025 10:03am Preeclampsia, severe January 17, 2025 10: 03am January 17, 2025 10:0 3am Retained placenta or membranes December 10:03am Supervision of high-risk January 17, 2025 10:03am Low vitamin B12 level January 17, 2025 10 :03am Abnormal Pap smear of cervix January 11:23am Ectopic February 14, 2025 11 :23am Elevated liver enzymes February 14, 2025 11:23am History of herpes genitalis February 14, 2025 11:23am Preeclampsia, severe February 14, 2025 1 1:23am February 14, 2025 11 :23am Retained placenta or membranes February 142024 11:23am Supervision of high-risk Augus 2024 11:23am Low vitamin B12 level February 14, 2025 11:23am Abnormal Pap smear of cervix March 072024 2:33pm Ectopic March 07, 2025 2:33pm Elevated liver enzymes Maki 5th, 20 25 2:33pm History of herpes genitalis March 2:33pm Preeclampsia, severe March 07, 2025 2:33pm March 07, 2025 2:33pm Retained placenta or membranes March 07, 2025 2:33pm Supervision of high-risk Carrie bansaler 2024 2:33pm Elevated liver enzymes March 20, 2 025 9:41am March 20, 2025 9:41am Chief Complaint Admit Date 17wk ob December 16, 2024 1:21 pm 21 wk ob January 17, 2025 10:0 3am 25 wk ob February 14, 2025 11 :23am 28wk ob/glucose March 07, 2025 2:33pm 30wk 1D ob March 20, 2025 9:41am Reason for Visit Admit Date Abnormal Pap smear of cervix December 16, 2024 1:21pm Ectopic December 16, 2024 1:21 pm Elevated liver enzymes December 16, 2024 1 :21pm History of herpes genitalis December 16, 2 025 1:21pm Preeclampsia, severe December 16, 2024 1:2 1pm December 16, 2024 1:21 pm Retained placenta or membranes December 1:21pm Supervision of high-risk December 16, 2024 1:21pm Low vitamin B12 level December 16, 2024 1: 21pm Abnormal Pap smear of cervix January 17, 2025 10:03am Ectopic January 17, 2025 10:0 3am Elevated liver enzymes January 17, 2025 1 0:03am History of herpes genitalis January 17, 2 025 10:03am Preeclampsia, severe January 17, 2025 10: 03am January 17, 2025 10:0 3am Retained placenta or membranes December 10:03am Supervision of high-risk January 17, 2025 10:03am Low vitamin B12 level January 17, 2025 10 :03am Abnormal Pap smear of cervix January 11:23am Ectopic February 14, 2025 11 :23am Elevated liver enzymes February 14, 2025 11:23am History of herpes genitalis February 14, 2025 11:23am Preeclampsia, severe February 14, 2025 1 1:23am February 14, 2025 11 :23am Retained placenta or membranes February 142024 11:23am Supervision of high-risk Augus t 2024 11:23am Low vitamin B12 level February 14, 2025 11:23am Abnormal Pap smear of cervix March 072024 2:33pm Ectopic March 07, 2025 2:33pm Elevated liver enzymes March 07 2:33pm History of herpes genitalis March 2:33pm Preeclampsia, severe March 07, 2025 2:33pm March 07, 2025 2:33pm Retained placenta or membranes March 07, 2025 2:33pm Supervision of high-risk Daydaye mber 2024 2:33pm Elevated liver enzymes March 20, 2 025 9:41am March 20, 2025 9:41am Chief Complaint Admit Date 17wk ob December 16, 2024 1:21 pm 21 wk ob January 17, 2025 10:0 3am 25 wk ob February 14, 2025 11 :23am 28wk ob/glucose March 07, 2025 2:33pm 30wk 1D ob March 20, 2025 9:41am 32wk 2D ob April 04, 2025 9: 38am Reason for Visit Admit Date Abnormal Pap smear of cervix December 16, 2024 1:21pm Ectopic December 16, 2024 1:21 pm Elevated liver enzymes December 16, 2024 1 :21pm History of herpes genitalis December 16, 2 025 1:21pm Preeclampsia, severe December 16, 2024 1:2 1pm December 16, 2024 1:21 pm Retained placenta or membranes December 1:21pm Supervision of high-risk December 16, 2024 1:21pm Low vitamin B12 level December 16, 2024 1: 21pm Abnormal Pap smear of cervix January 17, 2025 10:03am Ectopic January 17, 2025 10:0 3am Elevated liver enzymes January 17, 2025 1 0:03am History of herpes genitalis January 17, 2 025 10:03am Preeclampsia, severe January 17, 2025 10: 03am January 17, 2025 10:0 3am Retained placenta or membranes December 10:03am Supervision of high-risk January 17, 2025 10:03am Low vitamin B12 level January 17, 2025 10 :03am Abnormal Pap smear of cervix January 11:23am Ectopic February 14, 2025 11 :23am Elevated liver enzymes February 14, 2025 11:23am History of herpes genitalis February 14, 2025 11:23am Preeclampsia, severe February 14, 2025 1 1:23am February 14, 2025 11 :23am Retained placenta or membranes February 142024 11:23am Supervision of high-risk Augus 2024 11:23am Low vitamin B12 level February 14, 2025 11:23am Abnormal Pap smear of cervix March 072024 2:33pm Ectopic March 07, 2025 2:33pm Elevated liver enzymes March 07 2:33pm History of herpes genitalis March 2:33pm Preeclampsia, severe March 07, 2025 2:33pm March 07, 2025 2:33pm Retained placenta or membranes March 07, 2025 2:33pm Supervision of high-risk Septe [id number] 2:33pm Elevated liver enzymes March 20, 2 025 9:41am March 20, 2025 9:41am Abnormal Pap smear of cervix April 9:38am Ectopic April 04, 2025 9: 38am Elevated liver enzymes April 04, 2025 9:38am History of herpes genitalis April 04, 2025 9:38am Preeclampsia, severe April 04, 2025 9 :38am April 04, 2025 9: 38am Retained placenta or membranes April 042024 9:38am Supervision of high-risk Octob 2024 9:38am Additional Source Comments INFORMATION SOURCE (unrecogn ized section and content) DATE CREATED AUTHOR 08/21/2018 [facility] DATE CREATED AUTHOR AUTHOR'S ORGANIZ ATION 02/11/2019 [facility] DATE CREATED AUTHOR AUTHOR'S ORGANIZ ATION 07/05/2020 [facility] DATE CREATED AUTHOR AUTHOR'S ORGANIZ ATION 08/08/2022 [facility] DATE CREATED AUTHOR AUTHOR'S ORGANIZ ATION 08/08/2022 [facility] DATE CREATED AUTHOR AUTHOR'S ORGANIZ ATION 01/23/2023 [facility] DATE CREATED AUTHOR AUTHOR'S ORGANIZ ATION 03/04/2023 [facility] DATE CREATED AUTHOR AUTHOR'S ORGANIZ ATION 05/21/2024 [facility] DATE CREATED AUTHOR AUTHOR'S ORGANIZ ATION 06/18/2024 [facility] DATE CREATED AUTHOR AUTHOR'S ORGANIZ ATION 09/04/2024 [facility] DATE CREATED AUTHOR AUTHOR'S ORGANIZ ATION 10/04/2024 [facility] DATE CREATED AUTHOR AUTHOR'S ORGANIZ ATION 01/02/2025 [facility] DATE CREATED AUTHOR AUTHOR'S ORGANIZ ATION 03/26/2025 [facility] DATE CREATED AUTHOR AUTHOR'S ORGANIZ ATION 04/03/2025 [facility] Reason for Visit (unrecogniz ed section and [...] Primary Care - Established Hanh Madrigal, [address] [facility] [address] Phone: tel: fax: Referral ID Status Reason Start Date Expiration Date V isits Requested Visits Authorized [id number] Authorized 10/30/2023 10/29/2024 1 1 Reason Comments New Patient Visit Chronic diarrhea sukhwinder ry day 2-3x a day and after she eats. Abd pain/cramping after eating.Breast feeding. Reason Comments Follow-up Patient started taki ng cholestyramine and states it made her symptoms a lot better. Rosalind Silverman, ANAIS - 08/27/2019 2:31 AM Deep Gooden RN - 08/26/2019 11:58 PM Megan Almazan RN - 08/27/2019 12:10 PM Megan Almazan RN - 08/27/2019 8:34 AM EST ED Notes (unrecognized secti on and content) [facility] ED [facility]ANN Note: NAME: Hanh Dolan 24 y.o. CSN: [id number] PCP: Hanh Madrigal DO History: Chief Complaint: [...] file Gets together: Not on file Attends muslim service: Not on file Active member of [...] Procedure Abnormality Status --------- ------ CBC Auto Differential[[id number]] Abnormal Final result Please view results for [...] biliary ductal dilatation. No sonographic Hughes's sign. [facility]c Workstation ID: [id number] MDM: ED Course as of Aug 27 231 Tue Aug 27, 2019 0207 IMPRESSION: 1. [...] . MARÍA Harris ED Advanced Practice Provider [facility] Emergency Department (Please note that portions of [...] STATES SHE COMPLETED DOXYCYCLINE. ED PROVIDER NOTE [facility] EMERGENCY DEPARTMENT NAME: Hanh Dolan AGE: 24 y.o. : 1995 VISIT DATE: 08/27/2019 CSN: [id number] PCP: Hanh Madrigal DO Chief Complaint Patient presents with Abdominal Pain I took over care of this patient from Dr. Marie. I was to check the results of the ultrasound. Ultrasound revealed acute cholecystitis. I did place a fresh set of labs after this. I contacted general surgery, Linda, nurse practitioner. I also placed pain and [...] file Gets together: Not on file Attends muslim service: Not on file Active member of [...] Arceo PA-C 08/27/19 0958 ED PROVIDER NOTE [facility] EMERGENCY DEPARTMENT NAME: Hanh Dolan AGE: 24 y.o. : 1995 VISIT DATE: 08/27/2019 CSN: [id number] PCP: Hanh Madrigal DO Chief Complaint Patient [...] file Gets together: Not on file Attends muslim service: Not on file Active member of [...] nursing note reviewed. Exam conducted with a chief librarian extension department present. Constitutional: Appearance: She is well-developed. HENT: [...] not been specified. Corey Marie DO 08/27/19 0635 PT. STATES, THEY THINK IT'S MY GALL [...] FOR THIS ECTOPIC WILL SPEAK TO LINDA ELECTRIC METER REPAIRER [facility] CALLED. TRANSFERRED TO SIENNA MCKEON THIS PSA HAS LEFT A VOICE MESSAGE WITH [facility] FOR DR Cameron TO CALL SIENNA MCKEON AT [facility]. LEFT A PHONE NUMBER ALSO. THIS PSA ATTEMPTED TO CALL [facility]. NO ANSWER. WILL CONTINUE TO CALL. [facility] ED [facility]ANN Note: NAME: Hnah Dolan 25 y.o. CSN: [id number] PCP: Hanh Madrigal DO History: Chief Complaint: [...] 08/27/2019 acute cholecystitis due to gallstones......Dr. 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 /[facility] Workstation ID: [id number] MDM: ED Course as of Jul 02 1144 Hailee Jul 02, 2020 0835 Beta-hCG, Ur, Qual(!): Positive [RH] 0900 hCG Quant(!): 1,073 [RH] [address] Hermosillo with [facility] DIGITAL PRINTER OPERATOR - recommends I call our multifocal button inspector DIGITAL PRINTER OPERATOR to see if the patient is a candidate for surgery. [facility] DIGITAL PRINTER OPERATOR paged. [RH] 1035 ABORh: O Positive [RH] 1115 Dr. Carbajal states no surgery indicated at this time. He suggest that the patient get methotrexate, follow-up with her DIGITAL PRINTER OPERATOR today and get serial hCGs. [RH] [...] Linda Greenwood CNP ED Advanced Practice Provider [facility] Emergency Department (Please note that portions of [...] lower quadrant, remainder the abdomen soft nontender [facility] patient story concerning for appendicitis, given tenderness to palpation development of pain. However test came back positive, given IUD, high concern for ectopic , will get ultrasound. Beta-hCG, type and screen Patient has an ectopic . Spoke with the patients DIGITAL PRINTER OPERATOR, DR. Hermosillo. he states that he would be unable to see this patient in his office today, and he is not willing to have the patient transferred to his nearby hospital for management of this patient, given that, consulted on-call DIGITAL PRINTER OPERATOR here, who will evaluate the patient for treatment for ectopic Yannick Rene MD 07/02/20 1540 Patient arrives to the emergency department with c/o left abdominal pain with diarrhea that began yesterday. Patient denies fever but reports chills. Bed: 12 Expected date: Expected time: Means of arrival: Comments: NEXT PT documented in this encounter ED PROVIDER NOTE [facility] EMERGENCY DEPARTMENT NAME: Hanh Dolan AGE: 25 y.o. : 1995 VISIT DATE: 07/05/2020 CSN: [id number] PCP: Hanh Madrigal DO Chief Complaint Patient [...] Patient is scheduled tomorrow to see her DIGITAL PRINTER OPERATOR. She does note that her son was tested positive for COVID-19 and with her symptoms she was concerned and wanted to be tested. Her DIGITAL PRINTER OPERATOR is managing her ectopic . Past Medical History: Diagnosis Date Anemia Takes oral iron supplements Anxiety Calculus of gallbladder with acute cholecystitis 08/2019 required cholecystectomy Mastitis 09/2019 Preeclampsia Past Surgical History: Procedure Laterality Date CHOLECYSTECTOMY LAPAROSCOPIC N/A 08/27/2019 acute cholecystitis due to gallstones......Dr. 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 Patient notes that her DIGITAL PRINTER OPERATOR is managing her ectopic pregnancies so [...] ED Disposition Condition Comment Discharge Stable Hanh Callessofiabill discharged to home/self care in stable condition. Follow-up Information 1. Hanh Madrigal DO. Specialty: Internal Medicine [address] [place] [id number] 2. Please follow up. Follow-up with your DIGITAL PRINTER OPERATOR as scheduled Contact information for after-discharge [...] Discontinue: Therapy completed Teresa Stack MD 07/05/20 0847 Presents to the ED c/o cough, congestion, and exposure to Covid 19. States her one year old son was diagnosed a few days ago. Symptoms present x 2 days. Patient currently under quarantine per CDC guidelines. States employer wants to have her tested (Health Department). documented in this encounter Kendell Mcguire MD - 08/27/2019 5:20 PM Cindy Skinner CNP - 08/27/2019 10:40 AM EST H&P Notes (unrecognized sect ion and content) GENERAL SURGERY H+P / CONSULT - 08/27/19 PATIENT: Hanh Dolan ROOM: OR/OR : 1995 AGE: 24 y.o. SEX: female RACE: [1] PCP: Hanh Madrigal DO REFERRAL: No ref. 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 Plan for OR this afternoon with Dr. Mcguire. NPO, MIV. IV abx. Pain control. CHIEF COMPLAINT: RUQ abdominal pain HISTORY OF PRESENT ILLNESS / INJURY (HPI): [include Pain, Quality, Radiation, Severity, Duration, Timing] Mrs. Dolan is a 24 year old female with a PMH significant for preeclampsia and anxiety who presented to the [place] ED with a four day history of [...] placenta) Social history: -Place of residence (home, [facility], etc): Home with family -Tobacco use: Denies [...] BILITOT 0.1 08/27/2019 Associated attestation - Kendell Mcguire MD - 08/27/2019 5:19 PM EST See my separate note.documented in this encounter Quick Note - Mauri Tipton RN - 08/28/2019 8:58 AM ESTPlan of Care - Diana Martinez RN - 08/27/2019 10:07 PM ESTOp Note - Kendell Mcguire MD - 08/27/2019 4:10 PM EST Miscellaneous [...] Informed Consent Yes Referring ER Surgeon Kendell Mcguire MD Pre-op Dx Acute cholecystitis due to gallstones. Procedure Laparoscopic Cholecystectomy Laterality N/A Post-op Dx Same Anesthesia Commercial Real Estate Broker Ni Terry MS3 Positioning Supine Area prepped [...] medial and lateral peritoneal reflections over the [place] were dissected to reveal the [...] Correct Disposition Tolerated well. Transferred to the RR in stable condition. Layout PNSHETH Called ER [...] Plan for OR this afternoon with Dr. Mcguire. NPO, MIV. IV abx. Pain control. documented in this encounter Roberto Carbajal MD - 07/02/2020 5:17 PM EST Consult Notes (unrecognized section and content) CONSULT NOTE Patient Name: Hanh Dolan Admit Date: MR #: [id number] : 1995 Physicians: Hanh Madrigal DO (Family); [...] Chief Complaint/Reason for Visit: Patient presented to [facility] emergency room complaining of right lower quadrant [...] and suggested that she follow-up with her DIGITAL PRINTER OPERATOR in [place] Reyes for treatment and posttreatment care. [...] 08/27/2019 acute cholecystitis due to gallstones......Dr. 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 Financial resource strain: Not [...] file Gets together: Not on file Attends muslim service: Not on file Active member of [...] this encounter Goals (unrecognized section and content) Type Care Experience Labor Preferences-CB /BF classes: nolabor support person: Johnlabor intervention preferences: pain management options preferred: limited intervention if she can toleratecut cord/dad catch: Dad wants to help deliver and cut cordbreastfeeding: yesPP control planned: discusseddiscussed possible routes of delivery and associated risks: []special requests: [] Care Experience Labor Preferences-CB /BF classes: []labor support person: []labor intervention preferences: []pain management options preferred: []cut cord/dad catch: []: []PP control planned: []discussed possible routes of delivery and associated risks: []special requests: [] Care Teams (unrecognized sec tion and content) Team Status: Active Member Role Status Dates Dr. Hanh Madrigal DO Family Provider Active Dr. Hanh Madrigal DO Primary Care Provider Active Team Status: Inactive Member Role Status Dates Dr. Hanh Madrigal DO Primary Care Provider Active Dr. Alba Mar DO Attending Provider, Referemely young Provider Active Test Puller Relationship Specialty Start Date End Date Hanh Madrigal DO [address] [facility] [place] [place] [address] PCP - General 04/29/19 Hanh Madrigal DO [address] [facility] [place] [place] [address] PCP - Nic LION PCP 08/03/21 Team Status: Inactive Member Role [...] Provider, Refer ring Provider Active Concepcion Kiser ELECTRIC METER REPAIRER, ELECTRIC METER REPAIRER-C Attending Provider Active Team Status: Active Member [...] DO Primary Care Provider Active Concepcion Kiser ELECTRIC METER REPAIRER, ELECTRIC METER REPAIRER-C Attending Provider, Referring Provider Active Test Puller Relationship Specialty Start Date End Date Hanh Madrigal DO [address] [facility] [place] [place] [address] PCP - General 04/29/19 Hanh Madrigal DO [address] [facility] [place] [place] [address] PCP - Nic ACO PCP 08/03/21 Team Status: Inactive Member Role Status Dates Dr. Hanh Madrigal DO Primary Care Provider, Refer ring Provider Active Xiomara Garner CNM Attending Provider Active Test Puller Relationship Specialty Start Date End Date Hanh Madrigal DO [address] [facility] [place] [place] [address] PCP - General 04/29/19 Hanh Madrigal, DO [address] [facility] [place] [place] [address] PCP - [place] ACO PCP 08/03/21 Test Puller Relationship Specialty Start Date End Date Hanh Madrigal DO [address] [facility] [place] [place] [address] PCP - General 04/29/19 Hanh Madrigal, [address] [facility] [place] [place] [address] PCP - [place] [facility] PCP 08/03/21 Test Puller Relationship Specialty Start Date End Date Hanh Madrigal DO [address] [facility] [place] [place] [address] PCP - General 04/29/19 Hanh Madrigal DO [address] [facility] [place] [place] [address] PCP - [place] [facility] PCP 08/03/21 Test Puller Relationship Specialty Start Date End Date Audi Butcher CNP [address] [place] [address] PCP - General Nurse Practitioner 09/26/24 Test Puller Relationship Specialty Start Date End Date Audi Butcehr CNP [address] [place] [address] PCP - General Nurse Practitioner 09/26/24 Team [...] End: November 22, 2024 Dr. Mariely Nash , Attending Provider Activ e Start: November 22, 2024 End: November 22, 2024 Team Status: Inactive Member Role Status Dates Dr. Hanh Madrigal DO Primary Care Provider Active Start: November 22, 2024 End: November 22, 2024 Dr. Mariely Nash , DO Attending Provider Activ e Start: November 22, 2024 End: November 22, 2024 Dr. Mariely Nash , DO Referring Provider Activ e Start: November [...] Provider Active S tart: December 16, 2024 Test Puller Relationship Specialty Start Date End Date ShyamAudi CNP [address] [place] [address] PCP - General Nurse Practitioner 09/26/24 Team Status: Inactive Member Role Status Dates Dr. Hanh Madrigal DO Primary Care Provider Active Start: December 16, 2024 End: December 16, 2024 Mercy Avendano CNM Attending Provider Active S tart: December 16, 2024 End: December 16, 2024 Mercy Avendano CNM Referring Provider Active S tart: December 16, 2024 End: December 16, 2024 Team Status: Active Member Role/Relationship Status Dates Dr. Hanh Madrigal DO Primary Care Provider Active Team Status: Inactive Member Role/Relationship Status Dates Dr. Hanh Madrigal DO Primary Care Provider Active Start: October 25, 2024 End: October 25, 2024 Dr. Hanh Madrigal DO Referring Provider Active Start: October 25, 2024 End: October 25, 2024 Mercy Avendano CNM Attending Provider Active S tart: October 25, 2024 End: October 25, 2024 Team Status: Inactive Member Role/Relationship Status Dates Dr. Hanh Madrigal DO Primary Care Provider Active Start: October 25, 2024 End: October 25, 2024 Mercy Avendano CNM Attending Provider Active S tart: October 25, 2024 End: October 25, 2024 Mercy Avendano CNM Referring Provider Active S tart: October 25, 2024 End: October 25, 2024 Team Status: Inactive Member Role/Relationship Status Dates Dr. Hanh Madrigal DO Primary Care Provider Active Start: November 01, 2024 End: November 01, 2024 Mercy Avendano CNM Attending Provider Active S tart: November 01, 2024 End: November 01, 2024 Mercy Avendano CNM Referring Provider Active S tart: November 01, 2024 End: November 01, 2024 Team Status: Inactive Member Role/Relationship Status Dates Dr. Hanh Madrigal DO Primary Care Provider Active Start: November 22, 2024 End: November 22, 2024 Dr. Hanh Madrigal DO Referring Provider Active Start: November 22, 2024 End: November 22, 2024 Dr. Mariely Nash DO Attending Provider Activ e Start: November 22, 2024 End: November 22, 2024 Team Status: Inactive Member Role/Relationship Status Dates Dr. Hanh Madrigal DO Primary Care Provider Active Start: November 22, 2024 End: November 22, 2024 Dr. Mariely Nash DO Attending Provider Activ e Start: November 22, 2024 End: November 22, 2024 Dr. Mariely Nash DO Referring Provider Activ e Start: November 22, 2024 End: November 22, 2024 Team Status: Inactive Member Role/Relationship Status Dates Dr. Hanh Madrigal DO Primary Care Provider Active Start: December 16, 2024 End: December 16, 2024 Dr. Hanh Madrigal DO Referring Provider Active Start: December 16, 2024 End: December 16, 2024 Mercy Avendano CNM Attending Provider Active S tart: December 16, 2024 End: December 16, 2024 Team Status: Inactive Member Role/Relationship Status Dates Dr. Hanh Madrigal DO Primary Care Provider Active Start: December 16, 2024 End: December 16, 2024 Mercy Avendano CNM Attending Provider Active S tart: December 16, 2024 End: December 16, 2024 Mercy Avendano CNM Referring Provider Active S tart: December 16, 2024 End: December 16, 2024 Team Status: Inactive Member Role/Relationship Status Dates Dr. Hanh Madrigal DO Primary Care Provider Active Start: January 17, 2025 End: January 17, 2025 Dr. Hanh Madrigal DO Referring Provider Active Start: January 17, 2025 End: January 17, 2025 Xiomara Garner CNM Attending Provider Active Start: January 17, 2025 End: January 17, 2025 Team Status: Inactive Member Role/Relationship Status Dates Dr. Hanh Madrigal DO Primary Care Provider Active Start: February 14, 2025 End: February 14, 2025 Dr. Hanh Madrigal DO Referring Provider Active Start: February 14, 2025 End: February 14, 2025 Mercy Avendano CNM Attending Provider Active S tart: February 14, 2025 End: February 14, 2025 Team Status: Inactive Member Role/Relationship Status Dates Dr. Hanh Madrigal DO Primary Care Provider Active Start: November 22, 2024 End: November 22, 2024 Dr. Hanh Madrigal DO Referring Provider Active Start: November 22, 2024 End: November 22, 2024 Dr. Mariely Nash DO Attending Provider Activ e Start: November 22, 2024 End: November 22, 2024 Team Status: Inactive Member Role/Relationship Status Dates Dr. Hanh Madrigal DO Primary Care Provider Active Start: November 22, 2024 End: November 22, 2024 Dr. Mariely Nash DO Attending Provider Activ e Start: November 22, 2024 End: November 22, 2024 Dr. Mariely Nash DO Referring Provider Activ e Start: November 22, 2024 End: November 22, 2024 Team Status: Inactive Member Role/Relationship Status Dates Dr. Hanh Madrigal DO Primary Care Provider Active Start: December 16, 2024 End: December 16, 2024 Dr. Hanh Madrigal DO Referring Provider Active Start: December 16, 2024 End: December 16, 2024 Mercy Avendano CNM Attending Provider Active S tart: December 16, 2024 End: December 16, 2024 Team Status: Inactive Member Role/Relationship Status Dates Dr. Hanh Madrigal DO Primary Care Provider Active Start: December 16, 2024 End: December 16, 2024 Mercy Avendano CNM Attending Provider Active S tart: December 16, 2024 End: December 16, 2024 Mercy Avendano CNM Referring Provider Active S tart: December 16, 2024 End: December 16, 2024 Team Status: Inactive Member Role/Relationship Status Dates Dr. Hanh Madrigal DO Primary Care Provider Active Start: January 17, 2025 End: January 17, 2025 Dr. Hanh Madrigal DO Referring Provider Active Start: January 17, 2025 End: January 17, 2025 Xiomara Garner CNM Attending Provider Active Start: January 17, 2025 End: January 17, 2025 Team Status: Inactive Member Role/Relationship Status Dates Dr. Hanh Madrigal DO Primary Care Provider Active Start: February 14, 2025 End: February 14, 2025 Dr. Hanh Madrigal DO Referring Provider Active Start: February 14, 2025 End: February 14, 2025 Mercy Avendano CNM Attending Provider Active S tart: February 14, 2025 End: February 14, 2025 Team Status: Inactive Member Role/Relationship Status Dates Dr. Hanh Madrigal DO Primary Care Provider Active Start: March 07, 2025 End: March 07, 2025 Dr. Hanh Madrigal DO Referring Provider Active Start: March 07, 2025 End: March 07, 2025 Dr. Jyothi Lacey MD Attending Provider Active Start: March 07, 2025 End: March 07, 2025 Team Status: Active Member Role/Relationship Status Dates Dr. Hanh Madrigal DO Primary Care Provider Active Start: March 07, 2025 Dr. Jyothi Lacey MD Attending Provider Active Start: March 07, 2025 Team Status: Inactive Member Role/Relationship Status Dates Dr. Hanh Madrigal DO Primary Care Provider Active Start: March 07, 2025 End: March 07, 2025 Dr. Jyothi Lacey MD Attending Provider Active Start: March 07, 2025 End: March 07, 2025 Team Status: Active Member Role/Relationship Status Dates MARÍA Mcintosh Primary care physician Active Team Status: Inactive Member Role/Relationship Status Dates Dr. Hanh Madrigal DO Primary care physician Activ e Start: November 22, 2024 End: November 22, 2024 Dr. Hanh Madrigal DO Referring Provider Active Start: November 22, 2024 End: November 22, 2024 Dr. Mariely Nash , DO Attending physician Acti ve Start: November 22, 2024 End: November 22, 2024 Team Status: Inactive Member Role/Relationship Status Dates Dr. Hanh Madrigal DO Primary care physician Activ e Start: November 22, 2024 End: November 22, 2024 Dr. Mariely Nash , DO Attending physician Acti ve Start: November 22, 2024 End: November 22, 2024 Dr. Mariely Nash , DO Referring Provider Activ e Start: November 22, 2024 End: November 22, 2024 Team Status: Inactive Member Role/Relationship Status Dates Dr. Hanh Madrigal DO Primary care physician Activ e Start: December 16, 2024 End: December 16, 2024 Dr. Hanh Madrigal DO Referring Provider Active Start: December 16, 2024 End: December 16, 2024 Mercy Avendano CNM Attending physician Active Start: December 16, 2024 End: December 16, 2024 Team Status: Inactive Member Role/Relationship Status Dates Dr. Hanh Madrigal DO Primary care physician Activ e Start: December 16, 2024 End: December 16, 2024 Mercy Avendano CNM Attending physician Active Start: December 16, 2024 End: December 16, 2024 Mercy Avendano CNM Referring Provider Active S tart: December 16, 2024 End: December 16, 2024 Team Status: Inactive Member Role/Relationship Status Dates Dr. Hanh Madrigal DO Primary care physician Activ e Start: January 17, 2025 End: January 17, 2025 Dr. Hanh Madrigal DO Referring Provider Active Start: January 17, 2025 End: January 17, 2025 Xiomara Garner CNM Attending physician Active Start: January 17, 2025 End: January 17, 2025 Team Status: Inactive Member Role/Relationship Status Dates Dr. Hanh Madrigal DO Primary care physician Activ e Start: February 14, 2025 End: February 14, 2025 Dr. Hanh Madrigal DO Referring Provider Active Start: February 14, 2025 End: February 14, 2025 Mercy Avendano CNM Attending physician Active Start: February 14, 2025 End: February 14, 2025 Team Status: Inactive Member Role/Relationship Status Dates Dr. Hanh Madrigal DO Primary care physician Activ e Start: March 07, 2025 End: March 07, 2025 Dr. Hanh Madrigal DO Referring Provider Active Start: March 07, 2025 End: March 07, 2025 Dr. Jyothi Lacey MD Attending physician Active Start: March 07, 2025 End: March 07, 2025 Team Status: Inactive Member Role/Relationship Status Dates Dr. Hanh Madrigal DO Primary care physician Activ e Start: March 07, 2025 End: March 07, 2025 Dr. Jyothi Lacey MD Attending physician Active Start: March 07, 2025 End: March 07, 2025 Team Status: Inactive Member Role/Relationship Status Dates Dr. Hanh Madrigal DO Referring Provider Active Start: March 20, 2025 End: March 20, 2025 MARÍA Mcintosh Primary care physician Active Start: March 20, 2025 End: March 20, 2025 Mercy Avendano CNM Attending physician Active Start: March 20, 2025 End: March 20, 2025 Team Status: Active Member Role/Relationship Status Dates MARÍA Mcintosh Primary care physician Active Start: March 20, 2025 Mercy Avendano CNM Attending physician Active Start: March 20, 2025 Mercy vAendano CNM Referring Provider Active S tart: March 20, 2025 Team Status: Inactive Member Role/Relationship Status Dates Dr. Hanh Madrigal DO Primary care physician Activ e Start: December 16, 2024 End: December 16, 2024 Dr. Hanh Madrigal DO Referring Provider Active Start: December 16, 2024 End: December 16, 2024 Mercy Avendano CNM Attending physician Active Start: December 16, 2024 End: December 16, 2024 Team Status: Inactive Member Role/Relationship Status Dates Dr. Hanh Madrigal DO Primary care physician Activ e Start: December 16, 2024 End: December 16, 2024 Mercy Avendano CNM Attending physician Active Start: December 16, 2024 End: December 16, 2024 Mercy Avendano CNM Referring Provider Active S tart: December 16, 2024 End: December 16, 2024 Team Status: Inactive Member Role/Relationship Status Dates Dr. Hanh Madrigal DO Primary care physician Activ e Start: January 17, 2025 End: January 17, 2025 Dr. Hanh Madrigal DO Referring Provider Active Start: January 17, 2025 End: January 17, 2025 Xiomara Garner CNM Attending physician Active Start: January 17, 2025 End: January 17, 2025 Team Status: Inactive Member Role/Relationship Status Dates Dr. Hanh Madrigal DO Primary care physician Activ e Start: February 14, 2025 End: February 14, 2025 Dr. Hanh Madrigal DO Referring Provider Active Start: February 14, 2025 End: February 14, 2025 Mercy Avendano CNM Attending physician Active Start: February 14, 2025 End: February 14, 2025 Team Status: Inactive Member Role/Relationship Status Dates Dr. Hanh Madrigal DO Primary care physician Activ e Start: March 07, 2025 End: March 07, 2025 Dr. Hanh Madrigal DO Referring Provider Active Start: March 07, 2025 End: March 07, 2025 Dr. Jyothi Lacey MD Attending physician Active Start: March 07, 2025 End: March 07, 2025 Team Status: Inactive Member Role/Relationship Status Dates Dr. Hanh Madrigal DO Primary care physician Activ e Start: March 07, 2025 End: March 07, 2025 Dr. Jyothi Lacey MD Attending physician Active Start: March 07, 2025 End: March 07, 2025 Team Status: Inactive Member Role/Relationship Status Dates Dr. Hanh Madrigal DO Referring Provider Active Start: March 20, 2025 End: March 20, 2025 MARÍA Mcintosh Primary care physician Active Start: March 20, 2025 End: March 20, 2025 Mercy Avendano CNM Attending physician Active Start: March 20, 2025 End: March 20, 2025 Team Status: Inactive Member Role/Relationship Status Dates MARÍA Mcintosh Primary care physician Active Start: March 20, 2025 End: March 20, 2025 Mercy Avendano CNM Attending physician Active Start: March 20, 2025 End: March 20, 2025 Mercy Avendano CNM Referring Provider Active S tart: March 20, 2025 End: March 20, 2025 Team Status: Inactive Member Role/Relationship Status Dates Dr. Hanh Madrigal DO Referring Provider Active Start: April 04, 2025 End: April 04, 2025 Mercy Avendano CNM Attending physician Active Start: April 04, 2025 End: April 04, 2025 MARÍA Mcintosh Primary care physician Active Start: April 04, 2025 End: April 04, 2025 Source Comments (unrecognize d section and content) In the event this informatio n is protected by the Federal Confidentiality of Alcohol and Drug Abuse Patient Records regulations: The Federal rules restrict any use of the information to criminally investigate or prosecute any alcohol or drug abuse patient.[facility] FOR RECORDS PERTAINING TO PATIENTS WHO ARE [...] BE BASED ON THE PRIMARY CLINICAL RECORDS. [employer] [facility]. provides no warranty or guarantee of the accuracy or completeness of information in this document.
[2025-04-06] MEDS: 0.9% Saline Lock 10 ML Syringe IV (19:30)
[2025-04-06 19:50] LABS: Hematocrit 36.5 % (37-47); Hemoglobin 12.3 g/dL (12.0-15.0); Mean Corp Hgb Conc 33.7 g/dL (32-36); Mean Corpuscular Volume 88.0 fL (81-99); Mean Platelet Vol. 12.0 fl (6.2-12.0); Platelet Count 152 K/mm3 (150-450); RBC Distribution Width CV 12.7 % (11.6-14.6); RBC Distribution Width SD 40.9 fl (35.1-43.9); Red Blood Count 4.15 M/mm3 (4.2-5.4); White Blood Count 8.3 K/mm3 (4.4-11.0)
[2025-04-06 20:06] LABS: Creatinine, Urine (random) 39.30 mg/dL (28.00-217.00); Protein, Urine (Random) 7.3 mg/dL (0.0-12.0); Protein:Creat Ratio 185 mg/g CRE (0-200)
[2025-04-06 20:08] LABS: AST(SGOT) 14 U/L (<=31); Alanine Aminotransfer ALT/SGPT 12 U/L (<=34); Estimated Creatinine Clearance 140.13 ml/min (50-250); Uric Acid 4.1 mg/dL (2.6-6.0)
--- NOTE | 2025-04-07 00:51 | OB.TRI.HP_ITS ---
HPI - General General Date of Admission: 04/06/25 Date of Service: 04/06/25 Chief Complaint: Elevated Blood Pressures at Home HPI Narrative HANH RM, is a 29 F G5, P3 at 32 weeks 4 days gestation who presents to labor and delivery due to having some mildly elevated blood pressures at home. She has a history of PIH but she denies any PIH symptoms at present. She has also noted some irregular mild contractions at home that were intermittently regular upon presentation to labor and delivery. Pree labs were drawn and were normal. Cervix was examined and nonthreatening. Maternal Data Information ANNA Calculator Estimated Delivery Date Method Current WG Current Estimate 05/28/25 LMP (Certain) 32w 5d PFSH PFSH Medical History Preeclampsia, severe Large for dates affecting management of mother (spontaneous vaginal delivery) Retained placenta Abnormal Pap smear of cervix History of pre-term labor Retained placenta or membranes Headache Ectopic Pre-eclampsia Herpes genitalis Migraines Anemia affecting Anxiety Home Medications ?Medication ?Instructions ?Recorded ?Last Taken ?Type docosahexaenoic acid 200 mg 200 mg PO DAILY 10/30/23 0 11/15/23 21:00 History capsule ( DHA) aspirin 81 mg tablet,delayed 81 mg PO QDAY 10/10/24 Un known History release cholestyramine (with sugar) 4 gram ea PO 10/10/24 Unkn own History oral powder mecobalamin (vitamin B12) 10,000 mcg IM 10/10/24 Unkno wn History mcg solution for injection ondansetron 4 mg disintegrating 4 mg PO Q6H PRN nausea and 10/10/24 Unknown Rx tablet vomiting #90 tabs sertraline 50 mg tablet (Zoloft) 75 mg (1.5 x 50 mg) P O QDAY #60 04/04/25 Unknown Rx tabs valacyclovir 500 mg tablet 500 mg PO DAILY #30 tabs Unknown Rx (Valtrex) Allergy/AdvReac Type Severity Reaction Status Date / Time nitrofurantoin (From Allergy Unknown Hives Verified 04/06/25 18:56 Macrobid) nickel Allergy Rash Verified 04/06/25 18:56 Sulfa (Sulfonamide Allergy Hives Verified 04/06/25 18:56 Antibiotics) Family History Father Squamous cell carcinoma Mother Hyperlipidemia Brother Seizures Grandmother Breast cancer Surgical History [place] teeth removed Hx of cholecystectomy Social History adopted: No household members: family and children housing: house number of children: 3 current occupational status: unemployed current occupation: [employer] pets and animals: Yes pets and animals: dog(s) history of recent travel: No Smoking Status: Never smoker alcohol intake: never substance use type: does not use caffeine: Yes what type of physical activity do you participate in: none sandra/synagogue: Evangelical seatbelt use: always do you feel safe at home: Yes 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 Date Name GA/Weeks Outcome Route Bth Weight Infant Gen Labor Lgth Anesthesia Del Locatn Provider FOB 07/24/15 [place] 39 live - full term 6lbs 9oz Female epidural [facility] Dr. Edna Brambila 07/08/19 [place] 37 live - full term 8lbs 6oz Male [facility] Dr. Edna Bethea Sven 11/17/23 Kimmie 36 live - 6lbs 15oz Female [facility] Xiomara Ugalde Delivery Date: 07/24/15 Last Updated by: Lissa Ngo No issues during or delivery Delivery Date: 07/08/19 Last Updated by: Lissa Ngo Went into pre-term labor at 36 weeks but was able to stop labor. Developed pre-eclampsia and was induced at 37 weeks. Retained placenta, curettage immediately after delivery Delivery Date: 11/17/23 Last Updated by: Lissa Ngo COVID, LGA, severe pre-e Visit Details Expected Delivery Route/Plan Labor Preferences- CB/BF classes: [] labor support person: [] labor intervention preferences: [] pain management options preferred: [] cut cord/dad catch: [] : [] PP control planned: [] discussed possible routes of delivery and associated risks: [] special requests: [] Plans Covid status: [] Flu vaccine: [] Tdap vaccine: [] Rhogam: [] LARC form signed: [] Problem list reviewed and updated with the most current plan of care details and appropriate orders placed. Relevant counseling for the gestational age provided. Continue routine care and follow up unless otherwise noted in visit notes/problem list details OB Flowsheet Initial Weight: 152 lb Date -?-?-?-?-?-?-?-?-?-?-?-?- EGA Weight BP Urine Prot -?-?-?-?-?-?-?-?-?-?-?-?- Glucose FHR FuHt Pres Dilation -?-?-?-?-?-?-?-?-?-?-?-?- Effaced St Visit Note 10/25/24 -?-?-?-?-?-?-?-?-?-?-?-?- 9w 2d 152 lb 6 oz (+6 oz) 119/76 -?-?-?-?-?-?-?-?-?-?-?-?- 182 -?-?-?-?-?-?-?-?-?-?-?-?- KW- CRL cons wit h dates. Accepts NIPT on asa 81mg for hx pre e 11/22/24 -?-?-?-?-?-?-?-?-?-?-?-?- 13w 2d 152 lb 6 oz (+6 oz) 119/79 Negative -?-?-?-?-?-?-?-?-?-?-?-?- Negative 170 -?-?-?-?-?-?-?-?-?-?-?-?- JV- CRL still co nsistent with LMP. has very slight increase in ALT and elevated b12 (due to injection the day prior) will repeat labs today. 12/16/24 -?-?-?-?-?-?-?-?-?-?-?-?- 16w 5d 157 lb (+5 lb) 119/80 Negative -?-?-?-?-?-?-?-?-?-?-?-?- Negative 155 -?-?-?-?-?-?-?-?-?-?-?-?- KW- repeat liver enzymes today. US scheduled. no vb/cramping. no flutters yet 01/17/25 -?-?-?-?-?-?-?-?-?-?-?-?- 21w 2d 162 lb (+10 lb) 119/76 Trace -?-?-?-?-?--?-?-?-?-?-?-?- Negative 145 -?-?-?-?-?-?-?-?-?-?-?-?- LC- normal anato my. feeling occ flutters. no vb/cramping. 02/14/25 -?-?-?-?-?-?-?-?-?-?-?-?- 25w 2d 166 lb 6 oz (+14 lb 6 oz) 116/83 Negative -?-?-?-?-?-?-?-?-?-?-?-?- Negative 140 25 -?-?-?-?-?-?-?-?-?-?-?-?- KW- no vb/crampi ng. good fm. Patient tearful today and feels that she needs to go back on zoloft. She said she feels very emotional at home and is crying all the time for no reason-Zoloft 50mg sent into pharmacy. 03/07/25 -?-?-?-?-?-?-?-?-?-?-?-?- 28w 2d 176 lb 2 oz (+24 lb 2 oz) 109/73 Negative -?-?-?-?-?-?-?-?-?-?-?-?- Negative 140 28 29 -?-?-?-?-?-?-?-?-?-?-?-?- SM- no vb lof go od fm n oregular ctx feeling better on zoloft 03/20/25 -?-?-?-?-?-?-?-?-?-?-?-?- 30w 1d 178 lb (+26 lb) 106/72 Trace -?-?-?-?-?-?-?-?-?-?-?-?- Negative 145 32 -?-?-?-?-?-?-?-?-?-?-?-?- KW- no vb/lof/ct x. good fm. Requesting increase in zoloft- will try 75mg. having some itching in her feet, specifically at night. will get labs 04/04/25 -?-?-?-?-?-?-?-?-?-?-?-?- 32w 2d 179 lb 6 oz (+27 lb 6 oz) 108/72 Negative -?-?-?-?-?-?-?-?-?-?-?-?- Negative 125 -?-?-?-?-?-?-?-?-?-?-?-?- KW- no vb/lof/ct x. some decreased movement-NST for reassurance. KW- no vb/lof/ctx. some decr eased movement-NST for reassurance. would like GBS at 34 weeks due to hx of KW- no vb/lof/ctx. some decr eased movement-NST for reassurance. would like GBS at 34 weeks due to hx of valtrex sent for hx of HSV NST FHR Rate Baby A NST Reactive:: Yes Assessment & Plan (1) Prior complicated by PIH, antepartum: COMMENT: Mildly elevated blood pressures upon initial presentation which subsequently resolved after approximately 1/2-hour of rest. PIH labs normal. heart tones reactive. Nonthreatening cervix. Encourage p.o. hydration at home. To follow-up later this week for blood pressure check in the office.
== END 2025-04-06 20:45 | disposition home or self-care (01) ==
LOC: WPOUT 18:40 → WP 18:41
PROVIDERS: PCP Nurse Practitioner Family; Referring Provider Obstetrics & Gynecology; Visit Provider Obstetrics & Gynecology
DX: O26.893 Other specified pregnancy related conditions, third trimester (principal); R03.0 Elevated blood-pressure reading, without diagnosis of hypertension; Z3A.32 32 weeks gestation of pregnancy; Z87.59 Personal history of other complications of pregnancy, childbirth and the puerperium
CPT/HCPCS: 36415; 59025; 59050; 82565; 82570; 84156; 84450; 84460; 84550; 85027; 86850; 86900; 86901; 99221; A4216; G0378

== ENCOUNTER → 2025-04-17 | Outpatient (CLI) | payer BC, MEDICAID, SELFPAY ==
--- NOTE | 2025-04-17 15:16 | US_ITS ---
PROCEDURE: OB LIMITED WITH BIOMETRICS 04/17/2025 REASON FOR EXAM: GROWTH US TECHNIQUE: Procedure Code: [id number] Modality: US Procedure: OB LIMITED WITH BIOMETRICS COMPARISON: None FINDINGS LMP: August 21, 2024. Number: 1 Position: Vertex Placental Position: Anterior and posterior. Not low-lying. Placental Abnormalities: No evidence of previa. Succentturiate placenta DIMENSIONS: Biparietal Diameter: 8.7 cm: 35 weeks and 1 day: 75th percentile/ Head Circumference: 30.8 cm: 34 weeks and 3 days: 21 percentile/ Abdominal Circumference: 31 cm: 35 weeks and 0 days: 77 percentile/ Femur Length: 6.7 cm: 34 weeks and 3 days: 48 percentile/ ESTIMATED WEIGHT: 2556 g plus/-383 g ESTIMATED WEIGHT PERCENTILE (24+ weeks): 68 ESTIMATED GESTATIONAL AGE: Baseline: 34 weeks and 1 day By Ultrasound: 34 weeks and 3 days ESTIMATED DATE OF DELIVERY: Baseline: May 28, 2025 By Ultrasound: May 26, 2025 BIOPHYSICAL ASSESSMENT: Amniotic Fluid Volume: 5.6 cm Amniotic Fluid Index: 17.5 cm (8-24 cm normal range) Cardiac Motion: 157 beats per minute (average) Trunk and Limb Motion: Present. MATERNAL ANATOMY: Adnexa: Neither maternal ovary is successfully identified. US/OB Limited With Biometrics IMPRESSION: Single live intrauterine gestation with a mean gestational age of 34 weeks and 3 days. Incidental note is made of a succenturiate placenta. Reading Location: [place] [id number]
== END | disposition home or self-care (01) ==
LOC: US 15:15
PROVIDERS: PCP Nurse Practitioner Family; Referring Provider Advanced Practice Midwife; Visit Provider Advanced Practice Midwife
DX: O09.93 Supervision of high risk pregnancy, unspecified, third trimester (principal); O14.10 Severe pre-eclampsia, unspecified trimester; Z3A.34 34 weeks gestation of pregnancy
CPT/HCPCS: 76816

== ENCOUNTER → 2025-04-25 | Outpatient (CLI) | payer BC, MEDICAID, SELFPAY | END | disposition home or self-care (01) | LOC: LABSPEC 10:40 | PROVIDERS: PCP Nurse Practitioner Family; Visit Provider Obstetrics & Gynecology | DX: Z34.93 Encounter for supervision of normal pregnancy, unspecified, third trimester (principal) | CPT/HCPCS: 87081 ==

== ENCOUNTER 2025-05-15 13:32 | Outpatient (CLI) | payer BC, MEDICAID, SELFPAY ==
[2025-05-15 16:05] VITALS: BP 119/83; PULSE 103; PULSE 106; O2SAT 99
[2025-05-15 16:10] VITALS: PULSE 98; O2SAT 98
[2025-05-15 16:21] VITALS: BMI 33.1
[2025-05-15 16:22] LABS: Hematocrit 36.1 % (37-47); Hemoglobin 11.9 g/dL (12.0-15.0); Mean Corp Hgb Conc 33.0 g/dL (32-36); Mean Corpuscular Volume 85.3 fL (81-99); Mean Platelet Vol. 12.5 fl (6.2-12.0); Platelet Count 158 K/mm3 (150-450); RBC Distribution Width CV 13.2 % (11.6-14.6); RBC Distribution Width SD 40.8 fl (35.1-43.9); Red Blood Count 4.23 M/mm3 (4.2-5.4); White Blood Count 8.4 K/mm3 (4.4-11.0)
[2025-05-15 16:35] VITALS: BP 113/81; PULSE 98
[2025-05-15 16:50] VITALS: BP 126/80; PULSE 106
[2025-05-15 16:57] LABS: AST(SGOT) 20 U/L (<=31); Alanine Aminotransfer ALT/SGPT 12 U/L (<=34); Estimated Creatinine Clearance 139.14 ml/min (50-250); Uric Acid 5.1 mg/dL (2.6-6.0)
[2025-05-15 17:06] VITALS: BP 117/78; PULSE 87
--- NOTE | 2025-05-15 17:17 | OB.TRI.HP_ITS ---
HPI - General HPI Narrative late entry note: HANH RM, is a 30 F who presents to triage to rule out pre-e at 38 weeks 1 day. Labs and serial blood pressure monitoring was ordered Maternal Data Information ANNA Calculator Estimated Delivery Date Method Current WG Current Estimate 05/28/25 LMP (Certain) 39w 1d [facility] Medical History (Updated 05/22/25 @ 17:[address] Mariely Nash, DO) Preeclampsia, severe Large for dates affecting management of mother (spontaneous vaginal delivery) Retained placenta Abnormal Pap smear of cervix History of pre-term labor Retained placenta or membranes Headache Ectopic Pre-eclampsia Herpes genitalis Migraines Anemia affecting Anxiety Home Medications ?Medication ?Instructions ?Recorded ?Last Taken ?Type docosahexaenoic acid 200 mg 200 mg PO DAILY 10/30/23 1 07/21/24 20:00 History capsule ( DHA) 200 mg cholestyramine (with sugar) 4 gram 4 ea PO .qday PRN g allbladder 10/10/24 05/19/25 08:00 History oral powder removed 4 ea mecobalamin (vitamin B12) 10,000 1,000 mcg IM .every m onth chronic 10/10/24 05/03/25 15:00 History mcg solution for injection low B12 1,000 mcg sertraline 50 mg tablet (Zoloft) 75 mg (1.5 x 50 mg) P O QDAY #60 04/04/25 05/21/25 20:00 Rx tabs 75 mg Allergy/AdvReac Type Severity Reaction Status Date / Time nitrofurantoin (From Allergy Unknown Hives Verified 05/22/25 17:16 Macrobid) nickel Allergy Rash Verified 05/22/25 17:16 Sulfa (Sulfonamide Allergy Hives Verified 05/22/25 17:16 Antibiotics) Family History Father Squamous cell carcinoma Mother Hyperlipidemia Brother Seizures Grandmother Breast cancer Surgical History [place] teeth removed Hx of cholecystectomy Social History adopted: No household members: family and children housing: house number of children: 3 current occupational status: 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 Date Name GA/Weeks Outcome Route Bth Weight Infant Gen Labor Lgth Anesthesia Del Locatn Provider FOB 07/24/15 [place] 39 live - full term 6lbs 9oz Female epidural [facility] Dr. Edna Brambila 07/08/19 [place] 37 live - full term 8lbs 6oz Male [facility] Dr. Edna Bethea Sven 11/17/23 Kimmie 36 live - 6lbs 15oz Female [facility] Xiomara Pascual Ugalde Delivery Date: 07/24/15 Last Updated by: Lissa Ngo No issues during or delivery Delivery Date: 07/08/19 Last Updated by: Lissa Rochaion Went into pre-term labor at 36 weeks but was able to stop labor. Developed pre-eclampsia and was induced at 37 weeks. Retained placenta, curettage immediately after delivery Delivery Date: 11/17/23 Last Updated by: Lissa Ngo COVID, LGA, severe pre-e Visit Details Expected Delivery Route/Plan Labor Preferences- CB/BF classes: [] labor support person: [] labor intervention preferences: [] pain management options preferred: [] cut cord/dad catch: [] : [] PP control planned: [] discussed possible routes of delivery and associated risks: [] special requests: [] Plans Covid status: [] Flu vaccine: declines Tdap vaccine: declines Rhogam: na LARC form signed: declines movement and labor precautions reviewed. Problem list reviewed and updated with the most current plan of care details and appropriate orders placed. Relevant counseling for the gestational age provided. Continue routine care and follow up unless otherwise noted in visit notes/problem list details OB Flowsheet Initial Weight: 152 lb Date -?-?-?-?-?-?-?-?-?-?-?-?- EGA Weight BP Urine Prot -?-?-?-?-?-?-?-?-?-?-?-?- Glucose FHR FuHt Pres Dilation -?-?-?-?-?-?-?-?-?-?-?-?- Effaced St Visit Note 10/25/24 -?-?-?-?-?-?-?-?-?-?-?-?- 9w 2d 152 lb 6 oz (+6 oz) 119/76 -?-?-?-?-?-?-?-?-?-?-?-?- 182 -?-?-?-?-?-?-?-?-?-?-?-?- KW- CRL cons wit h dates. Accepts NIPT on asa 81mg for hx pre e 11/22/24 -?-?-?-?-?-?-?-?-?-?-?-?- 13w 2d 152 lb 6 oz (+6 oz) 119/79 Negative -?-?-?-?-?-?-?-?-?-?-?-?- Negative 170 -?-?-?-?-?-?-?-?-?-?-?-?- JV- CRL still co nsistent with LMP. has very slight increase in ALT and elevated b12 (due to injection the day prior) will repeat labs today. 12/16/24 -?-?-?-?-?-?-?-?-?--?-?-?- 16w 5d 157 lb (+5 lb) 119/80 Negative -?-?-?-?-?-?-?-?-?-?-?-?- Negative 155 -?-?-?-?-?-?-?-?-?-?-?-?- KW- repeat liver enzymes today. US scheduled. no vb/cramping. no flutters yet 01/17/25 -?-?-?-?-?-?-?-?-?-?-?-?- 21w 2d 162 lb (+10 lb) 119/76 Trace -?-?-?-?-?-?-?-?-?-?-?-?- Negative 145 -?-?-?-?-?-?-?-?-?-?-?-?- LC- normal anato my. feeling occ flutters. no vb/cramping. 02/14/25 -?-?-?-?-?-?-?-?-?-?-?-?- 25w 2d 166 lb 6 oz (+14 lb 6 oz) 116/83 Negative -?-?-?-?-?-?-?-?-?-?-?-?- Negative 140 25 -?-?-?-?-?-?--?-?-?-?-?-?- KW- no vb/crampi ng. good fm. Patient tearful today and feels that she needs to go back on zoloft. She said she feels very emotional at home and is crying all the time for no reason-Zoloft 50mg sent into pharmacy. 03/07/25 -?-?-?-?-?-?-?-?-?-?-?-?- 28w 2d 176 lb 2 oz (+24 lb 2 oz) 109/73 Negative -?-?-?-?-?-?-?-?-?-?--?-?- Negative 140 28 29 -?-?-?-?-?-?-?-?-?-?-?-?- SM- no vb lof go od fm n oregular ctx feeling better on zoloft 03/20/25 -?-?-?-?-?-?-?-?-?-?-?-?- 30w 1d 178 lb (+26 lb) 106/72 Trace -?-?-?-?-?-?-?-?-?-?-?-?- Negative 145 32 -?-?-?-?-?-?-?-?-?-?-?-?- KW- no vb/lof/ct x. good fm. Requesting increase in zoloft- will try 75mg. having some itching in her feet, specifically at night. will get labs 04/04/25 -?-?-?-?-?-?-?-?-?-?-?-?- 32w 2d 179 lb 6 oz (+27 lb 6 oz) 108/72 Negative -?-?-?-?-?-?-?-?-?-?-?-?- Negative 125 -?-?-?-?-?-?-?-?-?-?-?-?- KW- no vb/lof/ct x. some decreased movement-NST for reassurance. KW- no vb/lof/ctx. some decr eased movement-NST for reassurance. would like GBS at 34 weeks due to hx of KW- no vb/lof/ctx. some decr eased movement-NST for reassurance. would like GBS at 34 weeks due to hx of valtrex sent for hx of HSV 04/18/25 -?-?-?-?-?-?-?-?-?-?-?-?- 34w 2d 184 lb 8 oz (+32 lb 8 oz) 123/77 Negative -?-?-?-?-?-?-?-?-?-?-?-?- Negative 130 34 -?-?-?-?-?-?-?-?-?-?-?-?- SM- no vb lof go od fm no regualr ctx 04/25/25 -?-?-?-?-?-?-?-?-?-?-?-?- 35w 2d 183 lb 6 oz (+31 lb 6 oz) 114/78 Negative -?-?-?-?-?-?-?-?-?-?-?-?- Negative 135 35 Cephalic 0 .5 -?-?-?-?-?-?-?-?-?-?-?-?- JV- gbs collecte d. no complaints today. on baby asa. plan 3 week iOL on 05/21/25 04/30/25 -?-?-?-?-?-?-?-?-?-?-?-?- 36w 0d 186 lb 2 oz (+34 lb 2 oz) 107/74 Negative -?-?-?-?-?-?-?-?-?-?-?-?- Negative 140 36 Cephalic 1 -?-?-?-?-?-?-?-?-?-?-?-?- 50 -3 MH-No Vb, LOF. Good Fm. Neg GBS. 05/08/25 -?-?-?-?-?-?-?-?-?-?-?-?- 37w 1d 187 lb 3 oz (+35 lb 3 oz) 123/76 Negative -?-?-?-?-?-?-?-?-?-?-?-?- Negative 140 37 Cephalic 2 -?-?-?-?-?-?-?-?-?-?-?-?- 50 -2 KW- No vb/ lof/ctx. good fm. has had head cold x 1 week. encouraged hydration and OTC. rx next week if needed 05/16/25 -?-?-?-?-?-?-?-?-?-?-?-?- 38w 2d 188 lb 1 oz (+36 lb 1 oz) 114/79 Negative -?-?-?-?-?-?-?-?-?-?-?-?- Negative 140 39 Cephalic 3 -?-?-?-?-?-?-?-?-?-?-?-?- 50 -2 SM- no vb lof good fm n oregular ctx ROS Constitutional Constitutional: Reports systems reviewed and no addt'l complaints, except as documented Gastrointestinal Gastrointestinal: Denies bloating, constipation, cramping, diarrhea, nausea or vomiting Genitourinary Genitourinary: Reports other Details: Denies vaginal odor, vaginal bleeding, or vaginal discharge ; Denies difficulty urinating or flank pain NST FHR Rate Baby A Baseline: 140 Variability:: Moderate Accelerations:: 15 x 15 Decelerations:: None NST Reactive:: Yes FHR Category:: Category I Assessment & Plan (1) Headache: PLAN: Plan labs and bp are normal ok to dc to home nst reactive. Charges/Coding Multi Select Codes Urinary/Genital Urinary/Genital CPT Codes: 69564-95 non-stress test Interp
--- NOTE | 2025-05-15 17:17 | OB.TRI.NOTE ---
HPI - General HPI Narrative late entry note: HANH RM, is a 30 F who presents to triage to rule out pre-e at 38 weeks 1 day. Labs and serial blood pressure monitoring was ordered Maternal Data Information ANNA Calculator Estimated Delivery Date Method Current WG Current Estimate 05/28/25 LMP (Certain) 39w 1d [facility] Medical History (Updated 05/22/25 @ 17:[address] Mariely Nash, DO) Preeclampsia, severe Large for dates affecting management of mother (spontaneous vaginal delivery) Retained placenta Abnormal Pap smear of cervix History of pre-term labor Retained placenta or membranes Headache Ectopic Pre-eclampsia Herpes genitalis Migraines Anemia affecting Anxiety Home Medications ?Medication ?Instructions ?Recorded ?Last Taken ?Type docosahexaenoic acid 200 mg 200 mg PO DAILY 10/30/23 05/21/25 20:00 History capsule ( DHA) 200 mg cholestyramine (with sugar) 4 gram 4 ea PO .qday PRN gallbladder 10/10/24 05/19/25 08:00 History oral powder removed 4 ea mecobalamin (vitamin B12) 10,000 1,000 mcg IM .every month chronic 10/10/24 05/03/25 15:00 History mcg solution for injection low B12 1,000 mcg sertraline 50 mg tablet (Zoloft) 75 mg (1.5 x 50 mg) PO QDAY #60 04/04/25 05/21/25 20:00 Rx tabs 75 mg Allergy/AdvReac Type Severity Reaction Status Date / Time nitrofurantoin (From Allergy Unknown Hives Verified 05/22/25 17:16 Macrobid) nickel Allergy Rash Verified 05/22/25 17:16 Sulfa (Sulfonamide Allergy Hives Verified 05/22/25 17:16 Antibiotics) Family History Father Squamous cell carcinoma Mother Hyperlipidemia Brother Seizures Grandmother Breast cancer Surgical History [place] teeth removed Hx of cholecystectomy Social History adopted: No household members: family and children housing: house number of children: 3 current occupational status: unemployed current occupation: [employer] pets and animals: Yes pets and animals: dog(s) history of recent travel: No Smoking Status: Never smoker alcohol intake: never substance use type: does not use caffeine: Yes what type of physical activity do you participate in: none sandra/adventist: Rastafari seatbelt use: always do you feel safe at home: Yes 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 Date Name GA/Weeks Outcome Route Bth Weight Gen Labor Lgth Anesthesia Del Locatn Provider FOB 07/24/15 [place] 39 live - full term 6lbs 9oz Female epidural [facility] Dr. Edna Brambila 07/08/19 [place] 37 live - full term 8lbs 6oz Male [facility] Dr. Edna Bethea Sven 11/17/23 [place] 36 live - 6lbs 15oz Female [facility] Xiomara Ugalde Delivery Date: 07/24/15 Last Updated by: Lissa Ngo No issues during or delivery Delivery Date: 07/08/19 Last Updated by: Lissa Rochaion Went into pre-term labor at 36 weeks but was able to stop labor. Developed pre-eclampsia and was induced at 37 weeks. Retained placenta, curettage immediately after delivery Delivery Date: 11/17/23 Last Updated by: Lissa Ngo COVID, LGA, severe pre-e Visit Details Expected Delivery Route/Plan Labor Preferences- CB/BF classes: [] labor support person: [] labor intervention preferences: [] pain management options preferred: [] cut cord/dad catch: [] : [] PP control planned: [] discussed possible routes of delivery and associated risks: [] special requests: [] Plans Covid status: [] Flu vaccine: declines Tdap vaccine: declines Rhogam: na LARC form signed: declines movement and labor precautions reviewed. Problem list reviewed and updated with the most current plan of care details and appropriate orders placed. Relevant counseling for the gestational age provided. Continue routine care and follow up unless otherwise noted in visit notes/problem list details OB Flowsheet Initial Weight: 152 lb Date <del>?</del> EGA Weight BP Urine Prot <del>?</del> Glucose FHR FuHt Pres Dilation <del>?</del> Effaced St Visit Note 10/25/24 <del>?</del> 9w 2d 152 lb 6 oz (+6 oz) 119/76 <del>?</del> 182 <del>?</del> KW- CRL cons with dates. Accepts NIPT on asa 81mg for hx pre e 11/22/24 <del>?</del> 13w 2d 152 lb 6 oz (+6 oz) 119/79 Negative <del>?</del> Negative 170 <del>?</del> JV- CRL still consistent with LMP. has very slight increase in ALT and elevated b12 (due to injection the day prior) will repeat labs today. 12/16/24 <del>?</del> 16w 5d 157 lb (+5 lb) 119/80 Negative <del>?</del> Negative 155 <del>?</del> KW- repeat liver enzymes today. US scheduled. no vb/cramping. no flutters yet 01/17/25 <del>?</del> 21w 2d 162 lb (+10 lb) 119/76 Trace <del>?</del> Negative 145 <del>?</del> LC- normal anatomy. feeling occ flutters. no vb/cramping. 02/14/25 <del>?</del> 25w 2d 166 lb 6 oz (+14 lb 6 oz) 116/83 Negative <del>?</del> Negative 140 25 <del>?</del> KW- no vb/cramping. good fm. Patient tearful today and feels that she needs to go back on zoloft. She said she feels very emotional at home and is crying all the time for no reason-Zoloft 50mg sent into pharmacy. 03/07/25 <del>?</del> 28w 2d 176 lb 2 oz (+24 lb 2 oz) 109/73 Negative <del>?</del> Negative 140 28 29 <del>?</del> SM- no vb lof good fm n oregular ctx feeling better on zoloft 03/20/25 <del>?</del> 30w 1d 178 lb (+26 lb) 106/72 Trace <del>?</del> Negative 145 32 <del>?</del> KW- no vb/lof/ctx. good fm. Requesting increase in zoloft- will try 75mg. having some itching in her feet, specifically at night. will get labs 04/04/25 <del>?</del> 32w 2d 179 lb 6 oz (+27 lb 6 oz) 108/72 Negative <del>?</del> Negative 125 <del>?</del> KW- no vb/lof/ctx. some decreased movement-NST for reassurance. KW- no vb/lof/ctx. some decreased movement-NST for reassurance. would like GBS at 34 weeks due to hx of KW- no vb/lof/ctx. some decreased movement-NST for reassurance. would like GBS at 34 weeks due to hx of valtrex sent for hx of HSV 04/18/25 <del>?</del> 34w 2d 184 lb 8 oz (+32 lb 8 oz) 123/77 Negative <del>?</del> Negative 130 34 <del>?</del> SM- no vb lof good fm no regualr ctx 04/25/25 <del>?</del> 35w 2d 183 lb 6 oz (+31 lb 6 oz) 114/78 Negative <del>?</del> Negative 135 35 Cephalic 0.5 <del>?</del> JV- gbs collected. no complaints today. on baby asa. plan 3 week iOL on 05/21/25 04/30/25 <del>?</del> 36w 0d 186 lb 2 oz (+34 lb 2 oz) 107/74 Negative <del>?</del> Negative 140 36 Cephalic 1 <del>?</del> 50 -3 MH-No Vb, LOF. Good Fm. Neg GBS. 05/08/25 <del>?</del> 37w 1d 187 lb 3 oz (+35 lb 3 oz) 123/76 Negative <del>?</del> Negative 140 37 Cephalic 2 <del>?</del> 50 -2 KW- No vb/lof/ctx. good fm. has had head cold x 1 week. encouraged hydration and OTC. rx next week if needed 05/16/25 <del>?</del> 38w 2d 188 lb 1 oz (+36 lb 1 oz) 114/79 Negative <del>?</del> Negative 140 39 Cephalic 3 <del>?</del> 50 -2 SM- no vb lof good fm n oregular ctx ROS Constitutional Constitutional: Reports systems reviewed and no addt'l complaints, except as documented Gastrointestinal Gastrointestinal: Denies bloating, constipation, cramping, diarrhea, nausea or vomiting Genitourinary Genitourinary: Reports other Details: Denies vaginal odor, vaginal bleeding, or vaginal discharge ; Denies difficulty urinating or flank pain NST FHR Rate Baby A Baseline: 140 Variability:: Moderate Accelerations:: 15 x 15 Decelerations:: None NST Reactive:: Yes FHR Category:: Category I Assessment & Plan (1) Headache: PLAN: Plan labs and bp are normal ok to dc to home nst reactive. Charges/Coding Multi Select Codes Urinary/Genital Urinary/Genital CPT Codes: 03715-28 non-stress test Interp
[2025-05-15 17:20] VITALS: BP 125/84; PULSE 93
[2025-05-15 17:23] LABS: Creatinine, Urine (random) 66.30 mg/dL (28.00-217.00); Protein, Urine (Random) 14.8 mg/dL (0.0-12.0); Protein:Creat Ratio 223 mg/g CRE (0-200)
--- NOTE | 2025-05-15 18:54 | NURSING ---
Dr. Hernandez at bedside to assess pt. Pt pre eclampsia labs and BP all WNL. Pt cervix is unchanged.
== END 2025-05-15 18:45 | disposition home or self-care (01) ==
LOC: WPOUT 15:38 → WP 15:39
PROVIDERS: PCP Nurse Practitioner Family; Referring Provider Obstetrics & Gynecology; Visit Provider Obstetrics & Gynecology
DX: O26.893 Other specified pregnancy related conditions, third trimester (principal); R51.9 Headache, unspecified; Z3A.38 38 weeks gestation of pregnancy; Z87.59 Personal history of other complications of pregnancy, childbirth and the puerperium
CPT/HCPCS: 36415; 59025; 59050; 82565; 82570; 84156; 84450; 84460; 84550; 85027; 99221; G0378

== ENCOUNTER 2025-05-19 11:53 | Inpatient (IN) | payer BC, MEDICAID, SELFPAY ==
[2025-05-19] VITALS (59 sets, daily range): BP systolic 97–149; BP diastolic 57–81; PULSE 74–130; RESP 16–18; TEMP 36.3–36.8; O2SAT 90–98; BMI 32.5
[2025-05-19 11:36] LABS: ROM Internal Control Test YES-OK TO RESULT pt. (Internal QC)
[2025-05-19 11:37] LABS: ROM Patient Test POSITIVE (Negative); Record Kit Lot#, ROM+ K3607
[2025-05-19] MEDS: Lactated Ringers 1,000 ML 50 ML IV (12:05)
--- NOTE | 2025-05-19 12:14 | HP.PCM.OB_ITS ---
HPI - General General Date of Admission: 05/19/25 HPI Narrative HANH RM, is a 30 F who presents with srom clear fluid Maternal Data Information ANNA Calculator Estimated Delivery Date Method Current WG Current Estimate 05/28/25 LMP (Certain) 38w 5d PFSH PFSH Medical History Preeclampsia, severe Large for dates affecting management of mother (spontaneous vaginal delivery) Retained placenta Abnormal Pap smear of cervix History of pre-term labor Retained placenta or membranes Headache Ectopic Pre-eclampsia Herpes genitalis Migraines Anemia affecting Anxiety Home Medications ?Medication ?Instructions ?Recorded ?Last Taken ?Type docosahexaenoic acid 200 mg 200 mg PO DAILY 10/30/23 1 07/18/24 21:00 History capsule ( DHA) 200 mg aspirin 81 mg tablet,delayed 81 mg PO QDAY 10/10/24 21:00 History release 81 mg cholestyramine (with sugar) 4 gram 4 ea PO .qday PRN g allbladder 10/10/24 Unknown History oral powder removed mecobalamin (vitamin B12) 10,000 1,000 mcg IM .every m onth chronic 10/10/24 05/03/25 09:00 History mcg solution for injection low B12 1,000 mcg ondansetron 4 mg disintegrating 4 mg PO Q6H PRN nausea and 10/10/24 Unknown Rx tablet vomiting #90 tabs Held on 05/19/25. Instructions: pt has not taken in months sertraline 50 mg tablet (Zoloft) 75 mg (1.5 x 50 mg) P O QDAY #60 04/04/25 05/18/25 21:00 Rx tabs 75 mg valacyclovir 500 mg tablet 500 mg PO DAILY #30 tabs 05/18/25 21:00 Rx (Valtrex) 500 mg Allergy/AdvReac Type Severity Reaction Status Date / Time nitrofurantoin (From Allergy Unknown Hives Verified 05/16/25 11:24 Macrobid) nickel Allergy Rash Verified 05/16/25 11:24 Sulfa (Sulfonamide Allergy Hives Verified 05/16/25 11:24 Antibiotics) Family History Father Squamous cell carcinoma Mother Hyperlipidemia Brother Seizures Grandmother Breast cancer Surgical History [place] teeth removed Hx of cholecystectomy Social History adopted: No household members: family and children housing: house number of children: 3 current occupational status: unemployed current occupation: [employer] pets and animals: Yes pets and animals: dog(s) history of recent travel: No Smoking Status: Never smoker alcohol intake: never substance use type: does not use caffeine: Yes what type of physical activity do you participate in: none sandra/amish: Nondenominational seatbelt use: always do you feel safe at home: Yes 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 Date Name GA/Weeks Outcome Route Bth Weight Infant Gen Labor Lgth Anesthesia Del Locatn Provider FOB 07/24/15 [place] 39 live - full term 6lbs 9oz Female epidural [facility] Dr. Edna Bethea K[place] 07/08/19 [place] 37 live - full term 8lbs 6oz Male [facility] Dr. Edna Bethea Sven 11/17/23 [place] 36 live - 6lbs 15oz Female [facility] Xiomara Ugalde Delivery Date: 07/24/15 Last Updated by: Lissa Ngo No issues during or delivery Delivery Date: 07/08/19 Last Updated by: Lissa Ngo Went into pre-term labor at 36 weeks but was able to stop labor. Developed pre-eclampsia and was induced at 37 weeks. Retained placenta, curettage immediately after delivery Delivery Date: 11/17/23 Last Updated by: Lissa Ngo COVID, LGA, severe pre-e Visit Details Expected Delivery Route/Plan Labor Preferences- CB/BF classes: [] labor support person: [] labor intervention preferences: [] pain management options preferred: [] cut cord/dad catch: [] : [] PP control planned: [] discussed possible routes of delivery and associated risks: [] special requests: [] Plans Covid status: [] Flu vaccine: declines Tdap vaccine: declines Rhogam: na LARC form signed: declines movement and labor precautions reviewed. Problem list reviewed and updated with the most current plan of care details and appropriate orders placed. Relevant counseling for the gestational age provided. Continue routine care and follow up unless otherwise noted in visit notes/problem list details OB Flowsheet Initial Weight: 152 lb Date -?-?-?-?-?-?-?-?-?-?-?-?- EGA Weight BP Urine Prot -?-?-?-?-?-?-?-?-?-?-?-?- Glucose FHR FuHt Pres Dilation -?-?-?-?-?-?-?-?-?-?-?-?- Effaced St Visit Note 10/25/24 -?-?-?-?-?-?-?-?-?-?-?-?- 9w 2d 152 lb 6 oz (+6 oz) 119/76 -?-?-?-?-?-?-?-?-?-?-?-?- 182 -?-?-?-?-?-?-?-?-?-?-?-?- KW- CRL cons wit h dates. Accepts NIPT on asa 81mg for hx pre e 11/22/24 -?-?-?-?-?-?-?-?-?-?-?-?- 13w 2d 152 lb 6 oz (+6 oz) 119/79 Negative -?-?-?-?-?-?-?-?-?-?-?-?- Negative 170 -?-?-?-?-?-?-?-?-?-?-?-?- JV- CRL still co nsistent with LMP. has very slight increase in ALT and elevated b12 (due to injection the day prior) will repeat labs today. 12/16/24 -?-?-?-?-?-?-?-?-?-?-?-?- 16w 5d 157 lb (+5 lb) 119/80 Negative -?-?-?-?-?-?-?-?-?-?-?-?- Negative 155 -?-?-?-?-?-?-?-?-?-?-?-?- KW- repeat liver enzymes today. US scheduled. no vb/cramping. no flutters yet 01/17/25 -?-?-?-?-?-?-?-?-?-?-?-?- 21w 2d 162 lb (+10 lb) 119/76 Trace -?-?-?-?-?-?-?-?-?-?-?-?- Negative 145 -?-?-?-?-?-?-?-?-?-?-?-?- LC- normal anato my. feeling occ flutters. no vb/cramping. 02/14/25 -?-?-?-?-?-?-?-?-?-?-?-?- 25w 2d 166 lb 6 oz (+14 lb 6 oz) 116/83 Negative -?-?-?-?-?-?-?-?-?-?-?-?- Negative 140 25 -?-?-?-?-?-?-?-?-?-?-?-?- KW- no vb/crampi ng. good fm. Patient tearful today and feels that she needs to go back on zoloft. She said she feels very emotional at home and is crying all the time for no reason-Zoloft 50mg sent into pharmacy. 03/07/25 -?-?-?-?-?-?-?-?-?-?-?-?- 28w 2d 176 lb 2 oz (+24 lb 2 oz) 109/73 Negative -?-?-?-?-?-?-?-?-?-?-?-?- Negative 140 28 29 -?-?-?-?-?-?-?-?-?-?-?-?- SM- no vb lof go od fm n oregular ctx feeling better on zoloft 03/20/25 -?-?-?-?-?-?-?-?-?-?-?-?- 30w 1d 178 lb (+26 lb) 106/72 Trace -?-?-?-?-?-?-?-?-?-?-?-?- Negative 145 32 -?-?-?-?-?-?-?-?-?-?-?-?- KW- no vb/lof/ct x. good fm. Requesting increase in zoloft- will try 75mg. having some itching in her feet, specifically at night. will get labs 04/04/25 -?-?-?-?-?-?-?-?-?-?-?-?- 32w 2d 179 lb 6 oz (+27 lb 6 oz) 108/72 Negative -?-?-?-?-?-?-?-?-?-?-?-?- Negative 125 -?-?-?-?-?-?-?-?-?-?-?-?- KW- no vb/lof/ct x. some decreased movement-NST for reassurance. KW- no vb/lof/ctx. some decr eased movement-NST for reassurance. would like GBS at 34 weeks due to hx of KW- no vb/lof/ctx. some decr eased movement-NST for reassurance. would like GBS at 34 weeks due to hx of valtrex sent for hx of HSV 04/18/25 -?-?-?-?-?-?-?-?-?-?-?-?- 34w 2d 184 lb 8 oz (+32 lb 8 oz) 123/77 Negative -?-?-?-?-?-?-?-?-?-?-?-?- Negative 130 34 -?-?-?-?-?-?-?-?-?-?-?-?- SM- no vb lof go od fm no regualr ctx 04/25/25 -?-?-?-?-?-?-?-?-?-?-?-?- 35w 2d 183 lb 6 oz (+31 lb 6 oz) 114/78 Negative -?-?-?-?-?-?-?-?-?-?-?-?- Negative 135 35 Cephalic 0 .5 -?-?-?-?-?-?-?-?-?-?-?-?- JV- gbs collecte d. no complaints today. on baby asa. plan 3 week iOL on 05/21/25 04/30/25 -?-?-?-?-?-?-?-?-?-?-?-?- 36w 0d 186 lb 2 oz (+34 lb 2 oz) 107/74 Negative -?-?-?-?-?-?-?-?-?-?-?-?- Negative 140 36 Cephalic 1 -?-?-?-?-?-?-?-?-?-?-?-?- 50 -3 MH-No Vb, LOF. Good Fm. Neg GBS. 05/08/25 -?-?-?-?-?-?-?-?-?-?-?-?- 37w 1d 187 lb 3 oz (+35 lb 3 oz) 123/76 Negative -?-?-?-?-?-?-?-?-?-?-?-?- Negative 140 37 Cephalic 2 -?-?-?-?-?-?-?-?-?-?-?-?- 50 -2 KW- No vb/ lof/ctx. good fm. has had head cold x 1 week. encouraged hydration and OTC. rx next week if needed 05/16/25 -?-?-?-?-?-?-?-?-?-?-?-?- 38w 2d 188 lb 1 oz (+36 lb 1 oz) 114/79 Negative -?-?-?-?-?-?-?-?-?-?-?-?- Negative 140 39 Cephalic 3 -?-?-?-?-?-?-?-?-?-?-?-?- 50 -2 SM- no vb lof good fm n oregular ctx NST FHR Rate Baby A Baseline: 130 Variability:: Moderate Accelerations:: 15 x 15 Decelerations:: None NST Reactive:: Yes FHR Category:: Category I Uterine Activity:: irregular ROS Constitutional Constitutional: Reports systems reviewed and no addt'l complaints, except as documented Eyes Eyes: Denies change in vision ENT HEENT: Reports systems reviewed and no addt'l complaints, except as documented; Denies headache(s) Cardiovascular Cardiovascular: Reports systems reviewed and no addt'l complaints, except as documented; Denies chest pain or dyspnea Respiratory/Chest Respiratory/Chest: Reports systems reviewed and no addt'l complaints, except as documented Gastrointestinal Gastrointestinal: Reports systems reviewed and no addt'l complaints, except as documented; Denies abdominal pain Genitourinary Genitourinary: Reports systems reviewed and no addt'l complaints, except as documented, contractions Details: present (irregular) and movement Details: present; Denies dysuria or genital lesions Musculoskeletal Musculoskeletal: Reports systems reviewed and no addt'l complaints, except as documented Neurologic Neurologic: Reports systems reviewed and no addt'l complaints, except as documented Endocrine Endocrinology: Reports systems reviewed and no addt'l complaints, except as documented Vital Signs Vital Signs Vital Signs: 05/19/25 11:13 05/19/25 11:13 05/19/25 11:13 Temperature Temperature Source Pulse Rate 115 H Respiratory Rate Blood Pressure 108/72 BP Systolic 108 BP Diastolic 72 Pulse Ox 94 05/19/25 11:13 05/19/25 11:13 05/19/25 11:13 Temperature Temperature Source Temporal Pulse Rate 114 H Respiratory Rate 16 Blood Pressure BP Systolic BP Diastolic Pulse Ox 05/19/25 11:13 05/19/25 11:13 Temperature 98.2 F Temperature Source Pulse Rate Respiratory Rate Blood Pressure BP Systolic BP Diastolic Pulse Ox 95 Weight Weight: 186 lb 11.704 oz Body Mass Index (BMI) 32.5 Physical Exam Const alert, oriented x3, no apparent distress and healthy appearing HEENT normocephalic and moist oral mucous membranes Head and Scalp: atraumatic Neck full ROM, no lymphadenopathy, supple and thyroid normal General: trachea midline Lymph Lymphatic: no lymphadenopathy noted Chest inspection of chest normal Resp normal respiratory effort Cardio regular rate GI soft to palpation and non-tender GI Narrative: gravid Inspection: gravid external exam normal Manual OB Exam: estimated gestational size appropriate, presentation cephalic, dilated, effaced and station Extremity normal to inspection General Extremity: Negative for edema Skin no rashes or lesions noted Neuro no focal motor deficits and deep tendon reflexes 2+ bilaterally Motor Exam: strength 5/5 throughout and clonus absent Psych mental status grossly normal Labs Labs Labs: Blood Type O POSITIVE Antibody Screen NEGATIVE Hct, (37-47) 36.9 % L Hgb, (12.0-15.0) 12.0 g/dL Obstetrics Ultrasound Syphilis Total Ab, (Nonreactive) Nonreactive Rubella IgG Antibody, (Nonreactive) REAC Hep Bs Antigen, (Nonreactive) Nonreactive Hepatitis C Antibody, (Nonreactive) Nonreactive Chlamydia DNA (CARMEN), (Negative) Negative N.gonorrhoeae DNA (CARMEN), (Negative) Negative HIV 1&2 Antibody, (Nonreactive) Nonreactive Glucose 1 Hr 50 gm, (70-140) 90 mg/dL Group B Strep DNA, (Negative) Negative Rhogam given: No Miscellaneous Test, (.) COMMENT Assessment & Plan (1) Placenta succenturiata: (2) Elevated liver enzymes: COMMENT: redraw end of October- (3) Retained placenta or membranes: COMMENT: with 2nd , without hemorrhage, resolved with curettage (4) Ectopic : COMMENT: 06/2020 (5) Supervision of high-risk : QUALIFIERS: Trimester: third trimester Qualified Code(s): O09.93 - Supervision of high risk , unspecified, third trimester COMMENT: GBS neg, PRR,, ANNA 05/28 PC Landon Brennan (CF carrier), Kimmie Aftab. 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 all others nl. Pt's Mom total hysterectomy at 36. Pap 10/2024 nl. (8) History of herpes genitalis: COMMENT: valtrex at 36 weeks, last outbreak 2019 (9) Preeclampsia, severe: QUALIFIERS: Trimester: third trimester Qualified Code(s): O14.13 - Severe pre-eclampsia, third trimester COMMENT: advised to start 81mg ASA daily Elevated ALT with NOB labs. redraw in 4 weeks -needs 34 week US (10) SROM (spontaneous rupture of membranes): PLAN: Plan Patient presents IAL, plan expectant management for , pitocin PRN if needed. Pain management: plans epidural. GBS neg. Management of any complications: none I have reviewed the [facility] and made any clinically relevant updates.
[2025-05-19 12:36] LABS: Hematocrit 36.9 % (37-47); Hemoglobin 12.0 g/dL (12.0-15.0); Immature Granulocytes Count 0.050 X10^3/uL (0.0-0.0); Mean Corp Hgb Conc 32.5 g/dL (32-36); Mean Corpuscular Volume 86.2 fL (81-99); Mean Platelet Vol. 12.4 fl (6.2-12.0); NRBC Flagged by Analyzer 0 % (0-5); Platelet Count 155 K/mm3 (150-450); RBC Distribution Width CV 13.2 % (11.6-14.6); RBC Distribution Width SD 41.0 fl (35.1-43.9); Red Blood Count 4.28 M/mm3 (4.2-5.4); White Blood Count 10.0 K/mm3 (4.4-11.0)
[2025-05-19 13:35] LABS: Syphilis Antibodies Nonreactive (Nonreactive)
[2025-05-19] MEDS: Lactated Ringers 1,000 ML 999 ML IV (15:55)
[2025-05-19] MEDS: fentaNYL-bupivacaine (epidural) 100 ML BAG EPIDURAL ×2 (16:49→20:57)
[2025-05-19] MEDS: Oxytocin 15 Units/NS 250ml 15 UNITS/250 ML IV.SOLN 2 UNITS IV (16:56)
[2025-05-19] MEDS: Lactated Ringers 1,000 ML 200 ML IV (20:03)
--- NOTE | 2025-05-19 22:31 | OB.VAGDELI_ITS ---
Assessment & Plan (1) SROM (spontaneous rupture of membranes): (2) Placenta succenturiata: (3) Elevated liver enzymes: COMMENT: redraw end of October- (4) Retained placenta or membranes: COMMENT: with 2nd , without hemorrhage, resolved with curettage (5) Ectopic : COMMENT: 06/2020 (6) Supervision of high-risk : QUALIFIERS: Trimester: third trimester Qualified Code(s): O09.93 - Supervision of high risk , unspecified, third trimester COMMENT: GBS neg, PRR,, ANNA 05/28 PC AnuLandon (CF carrier), Kimmie Aftab. 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 all others nl. Pt's Mom total hysterectomy at 36. Pap 10/2024 nl. (9) History of herpes genitalis: COMMENT: valtrex at 36 weeks, last outbreak 2019 (10) Preeclampsia, severe: QUALIFIERS: Trimester: third trimester Qualified Code(s): O14.13 - Severe pre-eclampsia, third trimester COMMENT: advised to start 81mg ASA daily Elevated ALT with NOB labs. redraw in 4 weeks -needs 34 week US (11) Vaginal delivery: COMMENT: sm boy 38 ial srom Maternal Data Information ANAN Calculator Estimated Delivery Date Method Current WG Current Estimate 05/28/25 LMP (Certain) 38w 5d Vaginal Delivery Maternal Presentation Maternal Presentation: see assessment and plan Vaginal Delivery Information Procedure Performed: Spontaneous Vaginal Delivery Surgeon/Practitioner: Jyothi Lacey Date of Procedure: 05/19/25 Pre-Procedure Diagnosis: see assessment and plan Post-Procedure Diagnosis: same Type of anesthesia: Epidural Findings Description of procedure: Patient began pushing and delivered the head in the ASHLEY presentation. The head was delivered atraumatically and a loose nuchal cord ?1 was identified and easily reduced over the infant's head. The anterior and posterior shoulders delivered without complication followed by the rest of the infant and the infant was placed on the maternal abdomen. Delayed cord clamping was employed for approximately 60 seconds. Cord was clamped and cut and gentle traction was applied to the cord and the placenta delivered spontaneously immediately following it was noted to be intact with three-vessel cord. The perineum and vagina were inspected and noted to have no laceration. EBL was 100 cc. Patient and infant tolerated delivery well. Presentation: Vertex Placental Delivery Description: Spontaneous Specimen collected: Yes Description of specimen(s) removed: placenta Senior Planner model builder: No Post Vaginal Deli Medications given after delivery: Other (pitocin) Complication Complications: No Multi Select Codes Urinary/Genital Urinary/Genital CPT Codes: 47562 Vaginal Delivery [facility]
--- NOTE | 2025-05-19 22:32 | DCINST_ITS ---
Discharge Instructions DC O2, CPAP, BIPAP needs Home O2 Discharge instructions: No Dressing / Incision Discharge Activity: Return to Normal Activity, May Not Drive (while taking narcotic pain medications.) and May Shower May resume sexual activity in: 4-6 weeks Dressing / Incision Call your doctor if your incision/area has: Continuous Slow Oozing, Sudden Increased Bleeding, Increased Pain/ Swelling, Increased Redness and Foul Smelling Discharge Follow Up Care Please Follow Up With: Jyothi Lacey MD When: Call [phone] to make an appointment with your doctor in 6 weeks. If you had elevated blood pressure or 4th degree laceration, you will need to be seen in 2 weeks. Test Results: Test results from this visit will be discussed in further detail at your follow- up appointment, if applicable. Discharge Plan Admission Admit Date/Time: 05/19/25 11:53 Attending Provider: Jyothi Lacey Primary Care Provider: Laurel Howe Discharge Orders/Prescriptions Prescriptions: No Action DHA 200 mg capsule 200 mg PO DAILY cholestyramine (with sugar) 4 gram powder 4 ea PO .qday PRN (Reason: gallbladder removed) mecobalamin (vitamin B12) 10,000 mcg recon soln 1,000 mcg IM .every month aspirin 81 mg tablet,delayed release (DR/EC) 81 mg PO QDAY ondansetron 4 mg tablet,disintegrating 4 mg PO Q6H PRN (Reason: nausea and vomiting) Qty: 90 4RF valacyclovir [Valtrex] 500 mg tablet 500 mg PO DAILY Qty: 30 1RF sertraline [Zoloft] 50 mg tablet 75 mg PO QDAY Qty: 60 3RF Referrals / Follow Up: Laurel Howe, ASSISTANT PROJECT ENGINEER-C [Primary Care Provider, Family Practice]
[2025-05-19] MEDS: Oxytocin 15 Units/NS 250ml 15 UNITS/250 ML IV.SOLN 83 UNITS IV (22:54)
[2025-05-19] MEDS: Cefazolin 2 GM in 0.9% Normal Saline (100mL Bag) 100 ML IV (23:30)
[2025-05-20] VITALS (18 sets, daily range): BP systolic 113–123; BP diastolic 58–83; PULSE 74–105; RESP 15–16; TEMP 36.3–36.9; O2SAT 90–98
[2025-05-20] MEDS: GLYCERIN/WITCH HAZEL (TUCKS) MED..PAD 1 EACH TOPICAL ×2 (06:37→23:56)
[2025-05-20] MEDS: SELF ADMINISTRATION OF MEDS 1 EACH NOTE ×2 (10:16→23:55)
[2025-05-20] MEDS: Senna/Docusate Sodium 1 Tablet PO (19:29)
[2025-05-21 03:30] VITALS: BP 121/74; PULSE 73; RESP 18; TEMP 36.3; O2SAT 97
[2025-05-21 03:31] VITALS: BP 121/74; PULSE 70
--- NOTE | 2025-05-21 08:31 | PCM.PN.OB ---
Subjective Subjective Patient doing well without complaints. Tolerating PO. Ambulating and voiding without difficulty. Feeding well. Denies chest pain, shortness of breath, calf pain/swelling, fevers, chills, lightheadedness. Objective Data Objective Data Vital Signs: Vital Signs Temp Pulse Resp BP Pulse Ox O2 Del Method 97.4 F L 70 18 121/74 H 97 Room Air 05/21/25 03:30 05/21/25 03:31 05/21/25 03:30 05/21/25 03:31 05/21/25 03:30 05/21/25 03:30 Oxygen Delivery Method Room Air Weight: 186 lb 11.704 oz Body Mass Index (BMI) 32.5 Intake & Output: Intake and Output for Last 24 Hours 05/19/25 05/20/25 05/21/25 23:59 23:59 23:59 Intake Total 3231.69 / 3231.69 360 / 360 Output Total 400 / 400 950 / 950 Balance 2831.69 / 2831.69 -590 / -590 Lab / Micro Data 05/19/25 12:05 ROS Constitutional Constitutional: Reports systems reviewed and no addt'l complaints, except as documented; Denies anorexia or headache(s) Cardiovascular Cardiovascular: Reports systems reviewed and no addt'l complaints, except as documented; Denies dizziness, dyspnea, nausea or tachypnea Respiratory/Chest Respiratory/Chest: Reports systems reviewed and no addt'l complaints, except as documented; Denies cough, dyspnea, shortness of breath at rest or tachypnea Gastrointestinal Gastrointestinal: Reports systems reviewed and no addt'l complaints, except as documented; Denies abdominal pain, constipation or nausea Genitourinary Genitourinary: Reports systems reviewed and no addt'l complaints, except as documented; Denies burning urination, difficulty urinating, dysuria, urinary frequency or urinary incontinence Musculoskeletal Musculoskeletal: Reports systems reviewed and no addt'l complaints, except as documented Integumentary Integumentary: Reports systems reviewed and no addt'l complaints, except as documented Neurologic Neurologic: Reports systems reviewed and no addt'l complaints, except as documented; Denies abnormal speech, dizziness or headache(s) Psychiatric Psychiatric: Reports systems reviewed and no addt'l complaints, except as documented Endocrine Endocrinology: Reports systems reviewed and no addt'l complaints, except as documented Hematologic/Lymphatic Hematologic/Lymphatic: Reports systems reviewed and no addt'l complaints, except as documented Physical Exam Const alert, oriented x3 and no apparent distress Neck full ROM Resp normal respiratory effort, normal air movement and no retractions Effort and Inspection: able to speak in complete sentences and symmetric chest movement GI soft to palpation Bladder / Kidney Exam: bladder normal to palpation Uterus Palpation: uterus fundus firm Extremity normal to inspection and full ROM Psych mental status grossly normal, thought process normal and cooperative Assessment & Plan (1) Vaginal delivery: COMMENT: sm boy 38 ial srom PLAN: s/p PPD # 2 1. routine post delivery care 2. breast feeding- support given 3. rh positive 4. rubella immune 5. discharge home (2) SROM (spontaneous rupture of membranes): (3) Placenta succenturiata: (4) Elevated liver enzymes: COMMENT: redraw end of October- (5) Retained placenta or membranes: COMMENT: with 2nd , without hemorrhage, resolved with curettage (6) Ectopic : COMMENT: 06/2020 (7) Supervision of high-risk : QUALIFIERS: Trimester: third trimester Qualified Code(s): O09.93 - Supervision of high risk , unspecified, third trimester COMMENT: GBS neg, PRR,, ANNA 05/28 PC Landon Brennan (CF carrier), Kimmie Aftab. plan 39 week IOL (8) : QUALIFIERS: Weeks of gestation: 38 weeks Qualified Code(s): Z3A.38 - 38 weeks gestation of COMMENT: Desires Rn Integrated for delivery, NIPT w gender- low risk, male, carrier- declines, nl anatomy (9) Abnormal Pap smear of cervix: COMMENT: LGSIL 09/23/16. all others nl. Pt's Mom total hysterectomy at 36. Pap 10/2024 nl. (10) History of herpes genitalis: COMMENT: valtrex at 36 weeks, last outbreak 2019 (11) Preeclampsia, severe: QUALIFIERS: Trimester: third trimester Qualified Code(s): O14.13 - Severe pre-eclampsia, third trimester COMMENT: advised to start 81mg ASA daily Elevated ALT with NOB labs. redraw in 4 weeks -needs 34 week US Charges/Coding Multi Select Codes Urinary/Genital Urinary/Genital CPT Codes: No Charge
[2025-05-21 08:36] VITALS: BP 120/84; PULSE 89; PULSE 95; RESP 16; TEMP 36.1; O2SAT 94; O2SAT 96
[2025-05-21] MEDS: SELF ADMINISTRATION OF MEDS 1 EACH NOTE (11:42)
[2025-05-21 11:47] VITALS: RESP 16
--- NOTE | 2025-05-23 09:26 | PCM.DC.SUM ---
Providers Date of Admission: 05/19/25 Date of Discharge: 05/21/25 Primary Care Physician: Laurel Howe CUSTOMER SUPPORT TECHNICIAN-C Reason For Visit: VAG Diagnosis Discharge Diagnosis (1) Vaginal delivery: Status: Acute Code(s): O80 - Encounter for full-term uncomplicated delivery Plan: s/p PPD # 2 1. routine post delivery care 2. breast feeding- support given 3. rh positive 4. rubella immune 5. discharge home (2) SROM (spontaneous rupture of membranes): Status: Acute (3) Placenta succenturiata: Status: Acute Code(s): O43.199 - Other malformation of placenta, unspecified trimester (4) Elevated liver enzymes: Status: Acute Code(s): R74.8 - Abnormal levels of other serum enzymes (5) Retained placenta or membranes: Status: Acute Code(s): O73.1 - Retained portions of placenta and membranes, without hemorrhage (6) Ectopic : Status: Acute Code(s): O00.90 - Unspecified ectopic without intrauterine (7) Supervision of high-risk : Status: Acute Code(s): O09.90 - Supervision of high risk , unspecified, unspecified trimester Qualifiers: Trimester: third trimester Qualified Code(s): O09.93 - Supervision of high risk , unspecified, third trimester (8) : Status: Acute Code(s): Z34.90 - Encounter for supervision of normal , unspecified, unspecified trimester Qualifiers: Weeks of gestation: 38 weeks Qualified Code(s): Z3A.38 - 38 weeks gestation of (9) Abnormal Pap smear of cervix: Status: Acute Code(s): R87.619 - Unspecified abnormal cytological findings in specimens from cervix uteri (10) History of herpes genitalis: Status: Acute Code(s): Z86.19 - Personal history of other infectious and parasitic diseases (11) Preeclampsia, severe: Status: Acute Code(s): O14.10 - Severe pre-eclampsia, unspecified trimester Qualifiers: Trimester: third trimester Qualified Code(s): O14.13 - Severe pre-eclampsia, third trimester Medications at Discharge Home Medications docosahexaenoic acid 200 mg capsule ( DHA) 200 mg PO DAILY 10/30/23 cholestyramine (with sugar) 4 gram oral powder 4 ea PO .qday PRN gallbladder removed 10/10/24 mecobalamin (vitamin B12) 10,000 mcg solution for injection 1,000 mcg IM .every month chronic low B12 10/10/24 sertraline 50 mg tablet (Zoloft) 75 mg (1.5 x 50 mg) PO QDAY #60 tabs 04/04/25 Hospital Course Operations None Procedures None Summary of Care Provided Minutes Spent on Discharge: 30 Physical Exam Const alert, oriented x3 and no apparent distress Neck full ROM Resp normal respiratory effort, normal air movement and no retractions Effort and Inspection: able to speak in complete sentences and symmetric chest movement GI soft to palpation Inspection: incision intact Bladder / Kidney Exam: bladder normal to palpation Uterus Palpation: uterus fundus Extremity normal to inspection and full ROM Psych mental status grossly normal, thought process normal and cooperative Weight / BMI Weight Weight: 186 lb 11.704 oz Body Mass Index (BMI) 32.5 ABG / Lab / Microbiology Data 05/19/25 12:05 D/C Instructions May shower in (days): 0 May resume sexual activity in: 4-6 weeks Weight Bearing Status: Full weight bearing Call your doctor if your incision/area has: Continuous Slow Oozing, Sudden Increased Bleeding, Increased Pain/ Swelling, Increased Redness and Foul Smelling Discharge Call your doctor if you observe: Fever of 101 or Higher and Using more than 1 pad per hour (for 2 hours) Suture Line Care: Avoid Pulling/Pushing and Avoid Pinching/Bending Cleanse incision/area with: Soap & Water and Keep Dressing Clean & Dry DC O2, CPAP, BIPAP Needs Home O2 Discharge instructions: No Please Follow Up With: Jyothi Lacey MD When: Call [phone] to make an appointment with your doctor in 6 weeks. If you had elevated blood pressure or 4th degree laceration, you will need to be seen in 2 weeks. Meaningful Use Info Meaningful Use Meaningful Use Diagnoses (Choose all that apply): None applicable Discharge Plan Admission Admit Date/Time: 05/19/25 11:53 Attending Provider: Jyothi Lacey Primary Care Provider: Laurel Howe Instructions Patient Instructions: After a Vaginal Delivery (WP) Discharge Orders/Prescriptions Prescriptions: No Action DHA 200 mg capsule 200 mg PO DAILY cholestyramine (with sugar) 4 gram powder 4 ea PO .qday PRN (Reason: gallbladder removed) mecobalamin (vitamin B12) 10,000 mcg recon soln 1,000 mcg IM .every month sertraline [Zoloft] 50 mg tablet 75 mg PO QDAY Qty: 60 3RF Referrals / Follow Up: Laurel Howe, CUSTOMER SUPPORT TECHNICIAN-C [Primary Care Provider, [facility]] Disposition Disposition (needs filled in before D/C Order can be placed): Home, Self Care Charges/Coding Multi Select Codes Urinary/Genital Urinary/Genital CPT Codes: No Charge
--- NOTE | 2025-05-27 17:11 | NURSING ---
F/up phone call performed-- doing well. Engorgement has improved, small clogged duct that is improving. Denies s+s of complications, no questions or concerns. Encouragement and support given.
== END 2025-05-21 12:05 | disposition home or self-care (01) | DRG 807 ==
LOC: WP 12:00
PROVIDERS: Admitting Provider Obstetrics & Gynecology; PCP Nurse Practitioner Family; Referring Provider Obstetrics & Gynecology; Visit Provider Obstetrics & Gynecology
DX: O42.92 Full-term premature rupture of membranes, unspecified as to length of time between rupture and onset of labor (principal); Z37.0 Single live birth; O14.14 Severe pre-eclampsia complicating childbirth; F41.9 Anxiety disorder, unspecified; O99.344 Other mental disorders complicating childbirth; O69.81X0 Labor and delivery complicated by cord around neck, without compression, not applicable or unspecified; Z79.82 Long term (current) use of aspirin; Z3A.38 38 weeks gestation of pregnancy; Z87.59 Personal history of other complications of pregnancy, childbirth and the puerperium; Z86.19 Personal history of other infectious and parasitic diseases; Z79.899 Other long term (current) drug therapy
CPT/HCPCS: 59025; 59050; 84112; 85025; 86780; 86850; 86900; 86901; 99221; G0378; J2405

== ENCOUNTER 2025-05-22 16:32 | Outpatient (CLI) | payer BC, MEDICAID, SELFPAY ==
[2025-05-22 17:42] LABS: Hematocrit 36.2 % (37-47); Hemoglobin 11.6 g/dL (12.0-15.0); Mean Corp Hgb Conc 32.0 g/dL (32-36); Mean Corpuscular Volume 86.4 fL (81-99); Mean Platelet Vol. 11.9 fl (6.2-12.0); Platelet Count 153 K/mm3 (150-450); RBC Distribution Width CV 13.2 % (11.6-14.6); RBC Distribution Width SD 40.7 fl (35.1-43.9); Red Blood Count 4.19 M/mm3 (4.2-5.4); White Blood Count 8.9 K/mm3 (4.4-11.0)
[2025-05-22 17:45] VITALS: BMI 31.8
[2025-05-22 18:16] LABS: AST(SGOT) 19 U/L (<=31); Alanine Aminotransfer ALT/SGPT 14 U/L (<=34); Estimated Creatinine Clearance 136.42 ml/min (50-250); Uric Acid 5.1 mg/dL (2.6-6.0)
--- NOTE | 2025-05-22 18:47 | NURSING ---
Dr Patel on unit and view pt blood pressures. Doctor did go see pt. pt has a appointment tomorrow and will stop in office to have her blood pressure rechecked. aware of symptoms to return to hospital or call the doctor.
--- NOTE | 2025-05-22 19:14 | OB.TRI.PN ---
Progress Notes Progress Note: Patient is PPD#3 s/p with elevated BP at home and a headache. She does have a history of migraines which she would take excedrin for. Laboratory Studies: Laboratory Tests 05/22/25 Range/Units 17:25 WBC 8.9 (4.4-11.0) K/mm3 RBC 4.19 L (4.2-5.4) M/mm3 Hgb 11.6 L (12.0-15.0) g/dL Hct 36.2 L (37-47) % MCV 86.4 (81-99) fL MCH 27.7 (27.0-32.0) pg MCHC 32.0 (32-36) g/dL RDW Std Deviation 40.7 (35.1-43.9) fl RDW Coeff of Jerome 13.2 (11.6-14.6) % Plt Count 153 (150-450) K/mm3 MPV 11.9 (6.2-12.0) fl Creatinine 0.61 L (0.70-1.20) mg/dL Estim Creat Clear Calc 136.42 (50-250) ml/min Est GFR (MDRD) Non-Af 123 (>60) Uric Acid 5.1 (2.6-6.0) mg/dL AST 19 (<=31) U/L ALT 14 (<=34) U/L Assessment & Plan (1) History of pre-eclampsia: PLAN: BP cycled >1 hour and normal to low mild range. CBC and CMP without evidence of severe preeclampsia. Plan for BP check in the office tomorrow. (2) Headache: QUALIFIERS: Headache type: unspecified Headache chronicity pattern: unspecified pattern Intractability: not intractable Qualified Code(s): R51.9 - Headache, unspecified PLAN: Encourage execdrin use.
== END 2025-05-22 18:40 | disposition home or self-care (01) ==
LOC: WPOUT 16:50 → WP 16:51
PROVIDERS: PCP Nurse Practitioner Family; Referring Provider Student in an Organized Health Care Education/Training Program; Visit Provider Student in an Organized Health Care Education/Training Program
DX: O26.899 Other specified pregnancy related conditions, unspecified trimester (principal); R03.0 Elevated blood-pressure reading, without diagnosis of hypertension; R51.9 Headache, unspecified; Z3A.00 Weeks of gestation of pregnancy not specified; Z87.59 Personal history of other complications of pregnancy, childbirth and the puerperium
CPT/HCPCS: 36415; 82565; 84450; 84460; 84550; 85027; 99221; G0378

== ENCOUNTER → 2025-05-23 | Outpatient (CLI) | payer BC, MEDICAID, SELFPAY ==
[2025-05-23 16:24] LABS: Hematocrit 41.2 % (37-47); Hemoglobin 13.2 g/dL (12.0-15.0); Immature Granulocytes Count 0.090 X10^3/uL (0.0-0.0); Mean Corp Hgb Conc 32.0 g/dL (32-36); Mean Corpuscular Volume 87.3 fL (81-99); Mean Platelet Vol. 12.2 fl (6.2-12.0); NRBC Flagged by Analyzer 0 % (0-5); Platelet Count 195 K/mm3 (150-450); RBC Distribution Width CV 13.0 % (11.6-14.6); RBC Distribution Width SD 41.1 fl (35.1-43.9); Red Blood Count 4.72 M/mm3 (4.2-5.4); White Blood Count 9.3 K/mm3 (4.4-11.0)
[2025-05-23 17:17] LABS: AST(SGOT) 37 U/L (<=31); Alanine Aminotransfer ALT/SGPT 33 U/L (<=34); Albumin, Serum 3.9 g/dL (3.5-5.0); Alkaline Phosphatase 193 U/L (35-104); Anion Gap 13 (5-15); BUN 9 mg/dL (4-19); BUN/Creat Ratio 12.4 RATIO (10-20); Calcium,Total 10.1 mg/dL (7.6-11.0); Carbon Dioxide 24.3 mmol/L (21.0-32.0); Chloride 101 mmol/L (98-108); Globulin 4.0 g/dL (2.2-4.2); Glucose 85 mg/dL (70-99); Potassium 4.2 mmol/L (3.3-5.1)
== END | disposition home or self-care (01) ==
LOC: LAB 15:29
PROVIDERS: PCP Nurse Practitioner Family; Referring Provider Obstetrics & Gynecology; Visit Provider Obstetrics & Gynecology
DX: Z87.59 Personal history of other complications of pregnancy, childbirth and the puerperium (principal)
CPT/HCPCS: 36415; 80053; 85025

== ENCOUNTER → 2025-05-26 | Outpatient (CLI) | payer BC, MEDICAID, SELFPAY ==
[2025-05-26 14:26] LABS: Hematocrit 44.2 % (37-47); Hemoglobin 14.2 g/dL (12.0-15.0); Immature Granulocytes Count 0.070 X10^3/uL (0.0-0.0); Mean Corp Hgb Conc 32.1 g/dL (32-36); Mean Corpuscular Volume 87.2 fL (81-99); Mean Platelet Vol. 10.8 fl (6.2-12.0); NRBC Flagged by Analyzer 0 % (0-5); Platelet Count 248 K/mm3 (150-450); RBC Distribution Width CV 13.1 % (11.6-14.6); RBC Distribution Width SD 41.3 fl (35.1-43.9); Red Blood Count 5.07 M/mm3 (4.2-5.4); White Blood Count 8.8 K/mm3 (4.4-11.0)
[2025-05-26 14:48] LABS: AST(SGOT) 18 U/L (<=31); Alanine Aminotransfer ALT/SGPT 22 U/L (<=34); Albumin, Serum 4.1 g/dL (3.5-5.0); Alkaline Phosphatase 166 U/L (35-104); Anion Gap 12 (5-15); BUN 13 mg/dL (4-19); BUN/Creat Ratio 17.6 RATIO (10-20); Calcium,Total 10.3 mg/dL (7.6-11.0); Carbon Dioxide 26.6 mmol/L (21.0-32.0); Chloride 102 mmol/L (98-108); Globulin 3.9 g/dL (2.2-4.2); Glucose 80 mg/dL (70-99); Potassium 4.1 mmol/L (3.3-5.1)
== END | disposition home or self-care (01) ==
PROVIDERS: PCP Nurse Practitioner Family; Referring Provider Obstetrics & Gynecology; Visit Provider Obstetrics & Gynecology
DX: O14.13 Severe pre-eclampsia, third trimester (principal); R74.01 Elevation of levels of liver transaminase levels; O26.899 Other specified pregnancy related conditions, unspecified trimester; R51.9 Headache, unspecified; Z3A.00 Weeks of gestation of pregnancy not specified; Z87.59 Personal history of other complications of pregnancy, childbirth and the puerperium
CPT/HCPCS: 36415; 80053; 85025